=== PATIENT | male | born 1960 | race Caucasian/White ===

== ENCOUNTER 2018-06-17 00:33 | Observation (INO) | payer OTHER ==
[2018-06-17] MEDS ORDERED: ONDANSETRON 4 MG/2 ML VIAL ONE (00:56)
[2018-06-17] MEDS ORDERED: MORPHINE 4 MG/ML SYR ONE (00:56)
[2018-06-17] MEDS ORDERED: LEVALBUTEROL 1.25 MG/3 ML NEB ONE (00:56)
[2018-06-17 01:04] LABS: Absolute Lymphocytes (CBC) 3.8 K/uL (0.7-4.9); Absolute Monocytes 0.6 K/uL (0.1-1.3); Absolute Neutrophil 6.9 K/uL (1.8-8.0); Basophils % 1.4 % (0-1.3); Eosinophils % 2.9 % (0-4.4); Hematocrit 38.2 % (39.6-49.0); Lymphocytes % 31.7 % (15.3-44.8); MCH 28.4 pg (27.0-35.0); MPV 8.7 fL (7.6-11.3); Monocytes % 5.5 % (3.3-12.3); Protime INR 1.03; RBC Red Blood Cell Count 4.44 M/uL (4.33-5.43)
[2018-06-17] MEDS ORDERED: MEPERIDINE HCL 50 MG/ML AMP ONE ×2 (01:21→03:13)
[2018-06-17 02:02] LABS: ALT/SGPT 18 U/L (12-78); AST/SGOT 12 U/L (15-37); Albumin 3.6 g/dL (3.4-5.0); Alkaline Phosphatase 70 U/L (45-117); BUN Blood Urea Nitrogen 13 mg/dL (7-18); Bicarbonate 23 mmol/L (21-32); Bilirubin Direct < 0.1 mg/dL (0-0.2); Bilirubin Total 0.3 mg/dL (0.2-1.0); Glucose Level 101 mg/dL (74-106); Magnesium 1.7 mg/dL (1.8-2.4); NT PRO-BNP 1231 pg/mL (<125); Potassium 3.7 mmol/L (3.5-5.1); Protein, Total 6.5 g/dL (6.4-8.2); Sodium Level 144 mmol/L (136-145); Troponin (Emerg Dept Use Only) < 0.02 ng/mL (0.0-0.045)
[2018-06-17] MEDS ORDERED: KETOROLAC 30 MG/ML INJ IV ONE (03:12)
--- NOTE | 2018-06-17 03:13 | ER ---
Nurse's Notes [facility] Name: Alexander Bowman Age: 57 yrs Sex: Male : 1960 Arrival Date: 06/17/2018 Time: 00:39 Bed 3 Private MD: Diagnosis: Chest pain, unspecified Presentation: 06/17 00:40 Presenting complaint: Patient states: Chest pain for the past few days. Pain getting ao worst. Patient has being taking Nitro but it not relieving pain anymore. Patient has a history of cardiac stents in the past. Transition of care: patient was not received from another setting of care. Onset of symptoms is unknown. Risk Assessment: Do you want to hurt yourself or someone else? Patient reports no desire to harm self or others. Initial Sepsis Screen: Does the patient meet any 2 criteria? No. Patient's initial sepsis screen is negative. Does the patient have a suspected source of infection? No. Patient's initial sepsis screen is negative. Care prior to arrival: Medication(s) given: Nitroglycerin, 0.4 mg SL x 3. 00:40 Method Of Arrival: EMS: [facility] ao 00:40 Acuity: JACEY 3 ao Historical: - Allergies: 00:44 Aspirin; ao 00:44 Codeine; ao 00:44 Levofloxacin; ao 00:44 mycins; ao 00:44 PENICILLINS; ao 00:44 Sulfa (Sulfonamide Antibiotics); ao 00:44 Tylenol-Codeine #3; ao - Home Meds: 03:39 Advair Diskus 500-50 mcg/dose Inhl dsdv 1 puff 2 times per day [Active]; Aldactone 25 ao mg Oral tab 1 tab once daily [Active]; Dulera inhalation [Active]; fluticasone inhalation [Active]; Nitrostat 0.4 mg SL subl [Active]; omeprazole 40 mg Oral cpDR 1 cap once daily [Active]; pravastatin 40 mg Oral tab 1 tab once daily [Active]; Restoril 15 mg Oral cap 1 cap once daily [Active]; Robaxin 500 mg Oral tab [Active]; Soma 350 mg Oral tab 1 tab 3 times per day [Active]; Spiriva with HandiHaler 18 mcg inhalation CpDv [Active]; Viibryd 40 mg Oral tab [Active]; Xanax 2 mg Oral tab 3 times per day [Active]; lisinopril 10 mg Oral tab 1 tab once daily [Active]; oxycodone 10 mg Oral tab 1 tab every 6 hours [Active]; - PMHx: 00:44 Anxiety; COPD; Hypertension; Myocardial infarction; Pneumonia; Pneumothorax; ao - PSHx: 00:44 stents; ao - Immunization history:: Adult Immunizations unknown. - Social history:: Smoking status: Patient/guardian denies using tobacco, Patient/guardian denies using alcohol, street drugs. - Ebola Screening: : Patient negative for fever greater than or equal to 101.5 degrees Fahrenheit, and additional compatible Ebola Virus Disease symptoms Patient denies exposure to infectious person Patient denies travel to an Ebola-affected area in the 21 days before illness onset. - Family history:: not pertinent. - Hospitalizations: : No recent hospitalization is reported. Screenin:05 Abuse screen: Denies threats or abuse. Denies injuries from another. Nutritional ao screening: No deficits noted. Tuberculosis screening: No symptoms or risk factors identified. Fall Risk None identified. Assessment: 01:03 General: Appears in no apparent distress. uncomfortable, Behavior is appropriate for ao age, anxious. Pain: Complains of pain in chest. Neuro: Level of Consciousness is awake, alert, obeys commands, Oriented to person, place, time, situation, Appropriate for age Moves all extremities. Full function Speech is normal, Facial symmetry appears normal. Cardiovascular: Capillary refill < 3 seconds Patient's skin is warm and dry. Cardiovascular: Reports chest pain, nausea, shortness of breath, Denies vomiting. Respiratory: Airway is patent Respiratory effort is even, unlabored, Respiratory pattern is regular, symmetrical. GI: Abdomen is obese. : No signs and/or symptoms were reported regarding the genitourinary system. EENT: No signs and/or symptoms were reported regarding the EENT system. Derm: Skin is intact, Skin is pink, warm \T\ dry. normal, Skin temperature is warm. Musculoskeletal: Circulation, motion, and sensation intact. Range of motion: intact in all extremities. 01:47 Reassessment: Patient appears in no apparent distress at this time. Patient and/or ao family updated on plan of care and expected duration. Pain level reassessed. Patient is alert, oriented x 3, equal unlabored respirations, skin warm/dry/pink. Patient under no distress. New IV had started. 03:04 Reassessment: Patient appears in no apparent distress at this time. Patient and/or ao family updated on plan of care and expected duration. Pain level reassessed. Patient is alert, oriented x 3, equal unlabored respirations, skin warm/dry/pink. Waiting on dispo orders. Vital Signs: 00:42 BP 170 / 128; Pulse 97; Resp 18; Temp 98.4(O); Pulse Ox 99% on R/A; Weight 90.72 kg; ao Height 5 ft. 6 in. (167.64 cm); Pain 8/10; 01:47 BP 169 / 93; Pulse 77; Resp 17; Pulse Ox 96% ; ao 02:15 BP 122 / 82; Pulse 72; Resp 16; Pulse Ox 98% on R/A; Pain 0/10; ao 03:04 BP 136 / 88; Pulse 76; Resp 16; Pulse Ox 99% ; ao 00:42 Body Mass Index 32.28 (90.72 kg, 167.64 cm) ao ED Course: 00:39 Patient arrived in ED. rn 00:39 Aroldo Lui MD is Attending Physician. rn 00:39 Phillip Rosas RN is Primary Nurse. ao 00:42 Triage completed. ao 00:45 Arm band placed on right wrist. Patient placed in an exam room, on a stretcher, on ao clinical research monitor, on pulse oximetry. 00:45 Initial lab(s) drawn, by me, sent to lab. Inserted saline lock: 20 gauge in left cc forearm, using aseptic technique. Blood collected. 00:54 X-ray completed. Portable x-ray completed in exam room. Patient tolerated procedure kw well. 00:55 XRAY Chest (1 view) In Process Unspecified. EDMS 01:05 Patient has correct armband on for positive identification. monitor and storage bin tender on. Pulse ao ox on. NIBP on. 01:34 Inserted saline lock: 20 gauge in right forearm, using aseptic technique. Blood ao collected. 03:12 Ramy Otero MD is Hospitalizing Provider. rn 04:47 No provider procedures requiring assistance completed. Patient admitted, IV remains in ao place. Administered Medications: 00:57 Drug: Zofran 4 mg Route: IVP; Site: left forearm; ao 03:03 Follow up: Response: No adverse reaction ao 00:59 Drug: morphine 4 mg Route: IVP; Site: left forearm; ao 03:03 Follow up: Response: No adverse reaction ao 01:03 Drug: Xopenex 1.25 mg Route: Inhalation; ao 03:04 Follow up: Response: No adverse reaction ao 01:25 Drug: Demerol 50 mg Route: IVP; Site: right forearm; ao 03:03 Follow up: Response: No adverse reaction ao 03:10 Drug: Demerol 25 mg Route: IVP; Site: right antecubital; ao 04:46 Follow up: Response: No adverse reaction ao Outcome: 03:12 Decision to Hospitalize by Provider. rn 04:47 Admitted to Tele accompanied by nurse, room 405. ao 04:47 Condition: stable 04:47 Instructed on the need for admit. 04:48 Patient left the ED. ao Signatures: Dispatcher [employer] Aroldo De León MD MD rn Whitley, Kimberlee kw Christian, Chelsea cc Ortiz, Alex RN RN ao
--- NOTE | 2018-06-17 03:13 | EDPHYS ---
Physician Documentation [facility] Name: Alexander Bowman Age: 57 yrs Sex: Male : 1960 Arrival Date: 06/17/2018 Time: 00:39 Bed 3 Private MD: ED Physician Aroldo Lui HPI: 06/17 03:03 This 57 yrs old Male presents to ER via EMS with complaints of Chest Pain > rn 30 y/o. 03:03 The patient or guardian reports chest pain that is located primarily in the anterior rn chest wall, left. Onset: 2 day(s) ago. The pain does not radiate. Associated signs and symptoms: Pertinent positives: dizziness, lightheadedness, Pertinent negatives: abdominal pain, cough, diaphoresis. Severity of pain: At its worst the pain was moderate in the emergency department the pain is unchanged. The patient has not experienced similar symptoms in the past. Reports 2 days of intermittent chest pain, feels like defibrillator is shocking him, no fever, + COPD and smoker, + mild sob at baseline, pain pretty much constant for 2 days but gets sharp episodes of pain on top of it. + multiple PR and stents in past. . Historical: - Allergies: 00:44 Aspirin; ao 00:44 Codeine; ao 00:44 Levofloxacin; ao 00:44 mycins; ao 00:44 PENICILLINS; ao 00:44 Sulfa (Sulfonamide Antibiotics); ao 00:44 Tylenol-Codeine #3; ao - Home Meds: 03:39 Advair Diskus 500-50 mcg/dose Inhl dsdv 1 puff 2 times per day [Active]; Aldactone 25 ao mg Oral tab 1 tab once daily [Active]; Dulera inhalation [Active]; fluticasone inhalation [Active]; Nitrostat 0.4 mg SL subl [Active]; omeprazole 40 mg Oral cpDR 1 cap once daily [Active]; pravastatin 40 mg Oral tab 1 tab once daily [Active]; Restoril 15 mg Oral cap 1 cap once daily [Active]; Robaxin 500 mg Oral tab [Active]; Soma 350 mg Oral tab 1 tab 3 times per day [Active]; Spiriva with HandiHaler 18 mcg inhalation CpDv [Active]; Viibryd 40 mg Oral tab [Active]; Xanax 2 mg Oral tab 3 times per day [Active]; lisinopril 10 mg Oral tab 1 tab once daily [Active]; oxycodone 10 mg Oral tab 1 tab every 6 hours [Active]; - PMHx: 00:44 Anxiety; COPD; Hypertension; Myocardial infarction; Pneumonia; Pneumothorax; ao - PSHx: 00:44 stents; ao - Immunization history:: Adult Immunizations unknown. - Social history:: Smoking status: Patient/guardian denies using tobacco, Patient/guardian denies using alcohol, street drugs. - Ebola Screening: : Patient negative for fever greater than or equal to 101.5 degrees Fahrenheit, and additional compatible Ebola Virus Disease symptoms Patient denies exposure to infectious person Patient denies travel to an Ebola-affected area in the 21 days before illness onset. - Family history:: not pertinent. - Hospitalizations: : No recent hospitalization is reported. ROS: 03:03 Constitutional: Negative for fever, chills, and weight loss, Eyes: Negative for injury, rn pain, redness, and discharge, Neck: Negative for injury, pain, and swelling, Cardiovascular: + chest pain Respiratory: + sob and cough Abdomen/GI: Negative for abdominal pain, nausea, vomiting, diarrhea, and constipation, MS/Extremity: Negative for injury and deformity, Skin: Negative for injury, rash, and discoloration, Neuro: Negative for headache, weakness, numbness, tingling, and seizure. Exam: 03:03 Constitutional: This is a well developed, well nourished patient who is awake, alert, rn appears uncomfortable, gasping chest Head/Face: Normocephalic, atraumatic. Eyes: Pupils equal round and reactive to light, extra-ocular motions intact. Lids and lashes normal. Conjunctiva and sclera are non-icteric and not injected. Cornea within normal limits. Periorbital areas with no swelling, redness, or edema. Cardiovascular: tachcyardic, regular, no murmur Respiratory: + mild tachypnea with diminished breath sounds bilateral bases, no crackles Abdomen/GI: Soft, non-tender, with normal bowel sounds. No distension or tympany. No guarding or rebound. No evidence of tenderness throughout. Skin: Warm, dry with normal turgor. Normal color with no rashes, no lesions, and no evidence of cellulitis. MS/ Extremity: Pulses equal, no cyanosis. Neurovascular intact. Full, normal range of motion. Equal circumference. Neuro: Awake and alert, GCS 15, oriented to person, place, time, and situation. Cranial nerves II-XII grossly intact. Motor strength 5/5 in all extremities. Sensory grossly intact. Vital Signs: 00:42 BP 170 / 128; Pulse 97; Resp 18; Temp 98.4(O); Pulse Ox 99% on R/A; Weight 90.72 kg; ao Height 5 ft. 6 in. (167.64 cm); Pain 8/10; 01:47 BP 169 / 93; Pulse 77; Resp 17; Pulse Ox 96% ; ao 02:15 BP 122 / 82; Pulse 72; Resp 16; Pulse Ox 98% on R/A; Pain 0/10; ao 03:04 BP 136 / 88; Pulse 76; Resp 16; Pulse Ox 99% ; ao 00:42 Body Mass Index 32.28 (90.72 kg, 167.64 cm) ao MDM: 00:39 Patient medically screened. rn 03:03 Differential diagnosis: acute myocardial infarction, acute pericarditis, coronary rn artery disease chest wall pain, congestive heart failure costochondritis, esophagitis, gastritis, gastroesophageal reflux disease (GERD), pericarditis, pleurisy, pneumonia, pneumothorax, stable angina. Data reviewed: vital signs, nurses notes, lab test result(s), radiologic studies, plain films, and as a result, I will admit patient. Counseling: I had a detailed discussion with the patient and/or guardian regarding: the historical points, exam findings, and any diagnostic results supporting the discharge/admit diagnosis, lab results, radiology results, the need for further work-up and treatment in the hospital. Response to treatment: the patient's symptoms have mildly improved after treatment, and as a result, I will admit patient. Admission orders: after a detailed discussion of the patient's condition and case, the admit orders are written by me. 06/17 00:40 Order name: Basic Metabolic Panel; Complete Time: : rn 06/17 00:40 Order name: CBC with Diff; Complete Time: 01:56 rn 06/17 00:40 Order name: LFT's; Complete Time: : rn 06/17 00:40 Order name: Magnesium; Complete Time: : rn 06/17 00:40 Order name: NT PRO-BNP; Complete Time: 02:14 rn 06/17 00:40 Order name: PT-INR; Complete Time: 01:56 rn 06/17 00:40 Order name: Troponin (emerg Dept Use Only); Complete Time: 02:14 rn 06/17 00:40 Order name: XRAY Chest (1 view) rn 06/17 00:40 Order name: EKG; Complete Time: 00:41 rn 06/17 00:40 Order name: Cardiac monitoring; Complete Time: 00:51 rn 06/17 00:40 Order name: EKG - Nurse/Tech; Complete Time: 01:06 rn 06/17 00:40 Order name: IV Saline Lock; Complete Time: 00:51 rn 06/17 00:40 Order name: Labs collected and sent; Complete Time: 00:51 rn 06/17 00:40 Order name: O2 Per Protocol; Complete Time: 00:51 rn 06/17 00:40 Order name: O2 Sat Monitoring; Complete Time: 00:51 rn Administered Medications: 00:57 Drug: Zofran 4 mg Route: IVP; Site: left forearm; ao 03:03 Follow up: Response: No adverse reaction ao 00:59 Drug: morphine 4 mg Route: IVP; Site: left forearm; ao 03:03 Follow up: Response: No adverse reaction ao 01:03 Drug: Xopenex 1.25 mg Route: Inhalation; ao 03:04 Follow up: Response: No adverse reaction ao 01:25 Drug: Demerol 50 mg Route: IVP; Site: right forearm; ao 03:03 Follow up: Response: No adverse reaction ao 03:10 Drug: Demerol 25 mg Route: IVP; Site: right antecubital; ao 04:46 Follow up: Response: No adverse reaction ao Disposition: 06/17/18 03:12 Hospitalization ordered by Ramy Otero for Observation. Preliminary diagnosis is Chest pain, unspecified. - Bed requested for Telemetry/MedSurg (observation). - Status is Observation. ao - Condition is Stable. - Problem is new. - Symptoms have improved. UTI on Admission? No Signatures: Dispatcher [employer] Sarai Holliday RN RN kl Nieto, Roman, MD MD rn Ortiz, Alex, RN RN ao Corrections: (The following items were deleted from the chart) 04:23 03:12 Hospitalization Ordered by Ramy Otero MD for Observation. Preliminary kl diagnosis is Chest pain, unspecified. Bed requested for Telemetry/MedSurg (observation). Status is Observation. Condition is Stable. Problem is new. Symptoms have improved. UTI on Admission? No. rn 04:48 04:23 06/17/2018 03:12 Hospitalization Ordered by Ramy Otero MD for Observation. ao Preliminary diagnosis is Chest pain, unspecified. Bed requested for Telemetry/MedSurg (observation). Status is Observation. Condition is Stable. Problem is new. Symptoms have improved. UTI on Admission? No. kl
--- NOTE | 2018-06-17 03:24 | P.HP ---
Certification for Inpatient Patient admitted to: Observation With expected LOS: <2 Midnights Practitioner: I am a practitioner with admitting privileges, knowledge of patient current condition, hospital course, and medical plan of care. Services: Services provided to patient in accordance with Admission requirements found in Title 42 Section 412.3 of the Code of Federal Regulations Patient History Date of Service: 06/17/18 Reason for admission: Chest pain History of Present Illness: Mr Saravia is a 57-year-old male with history of pulmonary artery disease status post several stent placement in the past, ICD, COPD, chronic pain syndrome, who came to ER complaining of chest pain. His pain started a couple of days ago. He actually feels that he is ICD is going off. The pain is described as an electric shock in the area where the device is placed. He denied any shortness of breath, nausea, diaphoresis, or dizziness associated with the pain. The pain lasts for a few seconds, however has recurrent episodes several times a day since it started. In ER EKG shows sinus rate without ST-T abnormalities, troponin I is negative. Allergies acetaminophen [From Tylenol] Allergy (Verified 03/27/16 04:37) Rash codeine Allergy (Verified 03/27/16 04:37) Unknown levofloxacin [From Levaquin] Allergy (Verified 03/27/16 04:37) Unknown Penicillins Allergy (Verified 03/27/16 04:37) Unknown Sulfa (Sulfonamide Antibiotics) Allergy (Verified 03/27/16 04:37) Unknown vancomycin Allergy (Verified 05/27/16 20:08) Itching/Hives/Rash aspirin Adverse Reaction (Verified 03/27/16 04:37) Anaphylaxis Home medications list reviewed: Yes Home Medications: Asenapine Maleate [Saphris] 5 mg SL BID 03/27/16 Fluticasone [Flovent Hfa 110*] 110 mcg IH BID PRN 03/27/16 Fluticasone/Salmeterol [Advair 500/50 Diskus*] 1 puff IH BID 03/27/16 Isosorbide Mononitrate [Ismo] 40 mg PO DAILY 03/27/16 Methocarbamol [Robaxin*] 500 mg PO TID 03/27/16 Mometasone/Formoterol [Dulera 100 Mcg/5 Mcg Inhaler] 13 gm IH BID* PRN 03/27/16 Nitroglycerin [Nitrostat*] 0.4 mg SL PRN PRN 03/27/16 Omeprazole [Prilosec] 40 mg PO BID 03/27/16 Pravastatin [Pravachol*] 40 mg PO DAILY 03/27/16 Temazepam [Restoril*] 15 mg PO BEDTIME 03/27/16 Tiotropium [place] [Spiriva] 1 spray IH DAILY 03/27/16 Trazodone [Desyrel*] 50 mg PO BEDTIME 03/27/16 Vilazodone HCl [Viibryd] 1 each PO BID 03/27/16 Zolpidem Tartrate [Ambien*] 10 mg PO BEDTIME 03/27/16 ALPRAZolam [Xanax*] 2 mg PO TID #90 tab 03/29/16 Carvedilol [Coreg*] 12.5 mg PO BID 6AM 6PM #60 tab 03/29/16 Hydrocodone/Ibuprofen [Vicoprofen 200-7.5 mg Tab] 1 each PO Q4H PRN #90 tablet 03/29/16 Spironolactone [Aldactone*] 25 mg PO DAILY #30 tab 03/29/16 Clonazepam 1 mg PO TID PRN 05/27/16 Hydromorphone HCl [Dilaudid] 4 mg PO Q8HR PRN 05/27/16 Linezolid [Zyvox] 600 mg PO BID 05/27/16 Meropenem 1 gm IV TID 05/27/16 Alprazolam [Xanax] 2 mg PO TID PRN #30 tablet 05/28/16 Lidocaine 5% Patch [Lidoderm 5% Patch*] 1 patch TD DAILY #15 patch 05/28/16 - Past Medical/Surgical History Diabetic: No -: OR X 10 -: insomnia -: RLS -: anxiety -: depression -: COPD -: Detoriated disc in back -: Chronic pain medication -: Pacemaker/defib -: stents X9 -: 18 in of colon removed -: L knee sx -: L elbow sx -: 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 moist/pink, EOMI, Sclerae nonicteric Neck: Supple, 2+ carotid pulse no bruit, No LAD, Without JVD or thyroid abnormality Respiratory: Clear to auscultation bilaterally, Normal air movement Cardiovascular: Regular rate/rhythm, Normal S1 S2 Gastrointestinal: Normal bowel sounds, No tenderness Musculoskeletal: No tenderness Integumentary: No rashes Neurological: Normal speech, Normal strength at 5/5 x4 extr, Normal tone, Normal affect Lymphatics: No axilla or inguinal lymphadenopathy - Studies Laboratory Data (last 24 hrs) 06/17/18 01:23: Sodium 144, Potassium 3.7, BUN 13, Creatinine 1.40 H, Glucose 101, Magnesium 1.7 L, Total Bilirubin 0.3, AST 12 L, ALT 18, Alkaline Phosphatase 70 06/17/18 00:45: PT 12.1, INR 1.03 06/17/18 00:45: WBC 11.9 H, Hgb 12.6 L, Hct 38.2 L, Plt Count 243 Assessment and Plan - Problems (Diagnosis) (1) History of implantable cardioverter-defibrillator (ICD) placement Current Visit: Yes Status: Acute (2) Chest pain Onset Date: 03/28/16 Current Visit: No Status: Acute Qualifiers: Chest pain type: other chest pain Qualified Code(s): R07.89 - Other chest pain; R07.8 - Other chest pain (3) Chronic obstructive pulmonary disease (COPD) Onset Date: 03/28/16 Current Visit: No Status: Acute Qualifiers: COPD type: COPD with acute lower respiratory infection Qualified Code(s): J44.0 - Chronic obstructive pulmonary disease with acute lower respiratory infection (4) History of coronary artery disease Onset Date: 03/28/16 Current Visit: No Status: Acute - Plan The patient will be admitted to the hospital due to chest pain. Awaiting his current illness atypical and possible related to malfunction of his ICD. Initial troponin I is negative. EKG shows no ST-T abnormalities. Will order serial cardiac enzyme and scrum master, consult Cardiology team for evaluation and recommendation. He may need an ICD interrogation. - Advance Directives Does patient have a Living Will: No Does patient have a Durable POA for Healthcare: No - Code Status/Comfort Care Code Status Assessed: Yes Code Status: Full Code
[2018-06-17] MEDS ORDERED: KETOROLAC 30 MG/ML INJ ONE (04:48)
[2018-06-17 05:07] VITALS: BMI 27.3
[2018-06-17] MEDS ORDERED: TRAMADOL HCL 50 MG TAB PO PRN (05:19)
[2018-06-17] MEDS ORDERED: NITROGLYCERIN 0.4 MG/TAB SL PRN (05:19)
[2018-06-17 05:48] VITALS: O2SAT 93
[2018-06-17] MEDS ORDERED: CARVEDILOL 12.5 MG TAB PO SCH (06:00)
[2018-06-17 06:15] LABS: HDL Cholesterol 29 mg/dL (40-60); LDL Cholesterol, Calculated 57 (<130); Troponin I < 0.02 ng/mL (0.0-0.045)
[2018-06-17] MEDS ORDERED: HYDROCODONE/APAP 7.5/325 MG TAB PO ONE (06:37)
--- NOTE | 2018-06-17 08:06 | EKG ---
Test Date: 2018-06-17 Test Time: 01:04:44 Porcelain Enamel Repairer: RODOLFO MEASUREMENT RESULTS: Intervals: Rate: 78 [place]: 172 QRSD: 96 QT: 372 QTc: 424 [place]: P: 38 [place]: 172 QRS: 1 T: -21 INTERPRETIVE STATEMENTS: Normal sinus rhythm Inferior infarct, age undetermined Abnormal ECG Compared to ECG 10/03/2016 17:37:37 Atrial-paced complex(es) or rhythm no longer present Myocardial infarct finding still present Electronically Signed On 06-17-18 08:05:39 CDT by Ezekiel Gonzalez
--- NOTE | 2018-06-17 08:15 | RAD REPORT ---
EXAM DESCRIPTION: RAD - Chest Single View - 06/17/2018 1:00 am CLINICAL HISTORY: Chest pain COMPARISON: September 2016 TECHNIQUE: AP portable chest image was obtained 0043 hours . FINDINGS: Lung parenchymal scarring changes are present. Interstitial markings are stable. Defibrill ator is in place. No acute lung parenchymal process. Heart and vasculature are normal. No measurable pleural effusion and no pneumothorax. No gross bony abnormality seen. No acute aortic findings suspec thanh. IMPRESSION: No acute cardiopulmonary process. No significant change from comparison.
[2018-06-17] MEDS ORDERED: ENOXAPARIN 40 MG/0.4 ML SQ SCH (09:00)
[2018-06-17] MEDS ORDERED: ASPIRIN EC 81 MG TAB PO SCH (09:00)
[2018-06-17 09:06] VITALS: BP 169/93; TEMP 97.3
[2018-06-17] MEDS ORDERED: PNEUMOCOCCAL VACCINE 0.5 ML IMVAC ONE (10:00)
--- NOTE | 2018-06-17 12:03 | CON ---
Additional Attending Physician: Dr. Tipton. Chief Complaint: Defibrillator feels funny. History Of Present Illness: Mr. Bowman had a similar hospitalization 2 years ago. He had a defibril lator placed in 2010 and has not been interrogated since 2015. When we interrogated it, then it had not given any shocks or anything. He was frightened that his defibrillator was not functioning. He has a history of cardiomyopathy from CAD. He has had a previous AR. He has a total of 9 intracorona ry stents in his heart, although none since 2010. He quit smoking in 2014. He does not have diabete s. Outpatient medications have been nitroglycerin, Spiriva, Advair, Robaxin, temazepam, Dulera, flut icasone, alprazolam, enalapril, dexlansoprazole or Dexilant and carisoprodol. He reports drug intolerance to sulfa antibiotics, acetaminophen, codeine, levofloxacin, penicillin. He is very upset that somebody want to give him a medicine that had a sulfur molecule in it. He was concerned that the hospital staff was trying to kill him and she used those words. Apparently, he al so takes hydrocodone as an outpatient, but that is not listed in his outpatient medication. He said he was allergic to aspirin to me although that is not list of things he is allergic to. An echocardi ogram is pending at this time. All of his cardiac enzymes are normal. The rest of his laboratory ex am is rather unremarkable. Creatinine is 1.4, blood sugar 101. His total cholesterol is 123, and I wonder if he does not actually take a cholesterol medicine which is not listed. Physical Examination: Vital Signs: 6 feet tall, 202 pounds. HEENT: Normal. Lungs: Clear. Heart: Within normal limits. Abdomen: Soft. Extremities: Palpable distal pulses. His EKG shows an atrial paced rhythm. I think we need to do a defibrillator interrogation due the ec hocardiogram. If those things look normal, he could be discharged for outpatient care. He does need to do a better job of following up with his defibrillator. BARON/ELI Voice ID: [id number] Report ID: [id number]
--- OUTSIDE RECORDS SUMMARY | 2018-06-17 12:21 | XMS REPORT | Clinical Summary ---
:1960 [facility] Address [address] [place] [place] [address] Phone Care Team Providers Name Role Phone Unavailable Primary Care Provider Unavailable Allergies Active Allergy Reactions Severity Noted Date Comments Acetaminophen High 04/29/2016 Pt states his throat swells up. Salicylates 04/25/2016 Codeine 04/25/2016 Levofloxacin 04/25/2016 Penicillins 04/25/2016 Sulfa (Sulfonamide 04/25/2016 Antibiotics) Current Medications Prescription Sig. Disp. Refills Start Date End Date Status fluticasone-salmeterol Inhale 1 puff by mouth Active (ADVAIR) 500-50 via inhaler 2 (two) mcg/dose diskus times daily. inhaler fluticasone (FLOVENT Inhale 1 puff by mouth Active HFA) 110 mcg/actuation via inhaler 2 (two) inhaler times daily. naproxen (NAPROSYN) Take 500 mg by mouth 2 Active 500 MG tablet (two) times daily with breakfast and dinner. clonazePAM (KLONOPIN) Take 1 mg by mouth 2 Active 1 MG tablet (two) times daily as needed for Anxiety. nitroglycerin Place 0.4 mg under the Active (NITROSTAT) 0.4 MG SL tongue every 5 (five) tablet minutes as needed for Chest pain Put 1 pill under tongue every 5min as needed for chest pain.No more than 3 doses in 15min.Call 911 if pain is unrelieved 5min after 1st dose . pravastatin Take 40 mg by mouth Active (PRAVACHOL) 40 MG daily. tablet tiotropium (SPIRIVA) Inhale 18 mcg by mouth Active 18 mcg inhalation via inhaler daily. capsule traZODone (DESYREL) 50 Take 50 mg by mouth Active MG tablet nightly. temazepam (RESTORIL) Take 15 mg by mouth Active 15 mg capsule every night as needed for Sleep. meropenem (MERREM) MBP Inject 1 g 0 05/08/2016 Active 1 gm in 100 mL NS intravenously every 8 (eight) hours. lidocaine (XYLOCAINE) Apply topically as 50 g 0 05/08/2016 Active 5 % ointment needed. Active Problems Problem Noted Date Pneumonia due to infectious organism 04/28/2016 Chronic obstructive pulmonary disease with acute lower respiratory 04/28/2016 infection (HCC) Pneumothorax 04/25/2016 Family History Medical History Relation Name Comments Cancer Brother Heart disease Father Heart disease Mother Relation Name Status Comments Brother Father Mother Social History Tobacco Use Types Packs/Day Years Used Date Former Smoker 2 40 Quit: 03/27/2016 Alcohol Use Drinks/Week oz/Week Comments No Sex Assigned at Date Recorded Not on file Last Filed Vital Signs Not on file Plan of Treatment Not on file Results Not on fileafter 06/16/2017
--- NOTE | 2018-06-17 12:24 | ECHO ---
HEIGHT: 6 ft 0 in WEIGHT: 202 lb 0 oz DATE OF STUDY: 06/17/[address]: 2-DIMENSIONAL: YES M.MODE: YES DOPPLER: YES COLOR FLOW: YES TDS: NO PORTABLE: NO DEFINITY: NO BUBBLE STUDY: NO DIAGNOSIS: CHEST PAIN CARDIAC HISTORY: CATHERIZATION: NO SURGERY: YES PROSTHETIC VALVE: NO PACEMAKER: YES MEASUREMENTS (cm) DIASTOLIC (NORMALS) SYSTOLIC (NORMALS) IVSd 1.1 (0.6-1.2) LA Diam 4.3 (1.9-4.0) LVEF 50-55% LVIDd 4.8 (3.5-5.7) LVIDs 3.8 (2.0-3.5) %FS 22% LVPWd 1.1 (0.6-1.2) Ao Diam 3.4 (2.0-3.7) 2 DIMENSIONAL ASSESSMENT: RIGHT ATRIUM: NORMAL LEFT ATRIUM: DILATED RIGHT VENTRICLE: PACEMAKER CATHETER LEFT VENTRICLE: NORMAL TRICUSPID VALVE: NORMAL MITRAL VALVE: NORMAL PULMONIC VALVE: NORMAL AORTIC VALVE: NORMAL PERICARDIAL EFFUSION: NONE AORTIC ROOT: NORMAL LEFT VENTRICULAR WALL MOTION: INFERIOR POSTERIOR HYPOKINESIS DOPPLER/COLOR FLOW: PHYSIOLOGICAL TRICUSPID REGURGITATION. NORMAL RIGHT VENTRICULAR SYSTOLIC PRESSURE. COMMENTS: NORMAL LEFT VENTRICULAR EJECTION FRACTION WITHOUT WALL MOTION ABNORMALITIES. DILATED LEFT ATRIUM. PACEMAKER IN RIGHT VENTRICULAR. 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
--- NOTE | 2018-06-17 13:39 | PN ---
I saw him earlier today. Since that time the only thing that has changed is we have done a defibrill ator interrogation. It is a [employer] device, it is functioning normally. He has had no recent arrh ythmia or shocks. Last time he had an episode of 5-beat nonsustained VT, it was in February of this year , so 3 months ago. I believe he is ready to be discharged. BARON/ELI Voice ID: [id number] Report ID: [id number]
[2018-06-17] MEDS ORDERED: ATORVASTATIN 10 MG TAB PO SCH (21:00)
== END 2018-06-17 10:29 | disposition home or self-care (01) ==
LOC: ER 00:33 → ERHOLD 03:12 → 4TH 04:30
PROVIDERS: ADMIT Internal Medicine; ATTEND Family Medicine
DX: R07.9 Chest pain, unspecified (principal); I25.10 Atherosclerotic heart disease of native coronary artery without angina pectoris; I25.2 Old myocardial infarction; J44.0 Chronic obstructive pulmonary disease with (acute) lower respiratory infection; Z95.0 Presence of cardiac pacemaker; Z88.2 Allergy status to sulfonamides; Z88.1 Allergy status to other antibiotic agents; Z88.6 Allergy status to analgesic agent; Z88.0 Allergy status to penicillin
CPT/HCPCS: 36415; 71045; 80048; 80061; 80076; 83735; 83880; 84484 ×2; 85025; 85610; 93005; 93280; 93306; 96374; 96375; 99285; G0378 ×2; J2175 ×2; J2405

== ENCOUNTER 2021-08-24 08:30 | Emergency (ER) | payer OTHER ==
--- OUTSIDE RECORDS SUMMARY | 2021-08-24 08:38 | XMS REPORT | Continuity of Care Document ---
:1960 Author Organization [facility] t Address [address] [place] [address] Care Team Providers Name Role Phone Savannah Weathers Primary Care Physician Konrad MACARIO Attending Clinician KONRAD Attending Clinician Unavailable Doctor Unassigned, Name Attending Clinician Unavailable Bj MACARIO Attending Clinician James MACARIO Attending Clinician Jason Wang MD Attending Clinician [phone] BJ Attending Clinician Unavailable SOLOMON Attending Clinician Unavailable Solomon MACARIO Attending Clinician STEPHANIE Attending Clinician Unavailable Pc, Vascular Room 1 - Attending Clinician Unavailable Pc, Echo Room 1 - Attending Clinician Unavailable KONRAD Admitting Clinician Unavailable Jason Wang MD Admitting Clinician [phone] Payers Payer Name Policy Type Policy Number Effective Date Expiration Date S [facility] [place], [place] MEDICARE PART A \\T\\ [id number] 2014 B 00:00:00 [facility] [id number] 2014 00:00:00 MEDICA[place] OF [place] [id number] 2014 00:00:00 Problems Condition Condition Condition Status Onset Resolution Last Treating Co mments Source Name Details Category Date Date Treatment Clinician Date Coronary Coronary Disease Active Unive rs artery artery 9-09 ity of disease disease 00:00: [place] involving involving 00 Medi julieta jena jena Branch coronary coronary artery of artery of jena jena heart heart without without angina angina pectoris pectoris Allergies, Adverse Reactions, Alerts Allergy Allergy Status Severity Reaction(s) Onset Inactive Treating Comm ents Source Name Type Date Date Clinician Aspirin Propensi Active Anaphylaxis 2018-09 Un mateusz ty to 0-16 ity of adverse 00:00: [place] reaction 00 Medical s Branch Codeine Propensi Active Itching 2018-09 Univer s ty to 0-16 ity of adverse 00:00: [place] reaction 00 Medical s Branch Levoflox Propensi Active Shortness of 2018-09 Univers acin ty to Breath 0-16 ity of adverse 00:00: [place] reaction 00 Medical s Branch Penicill Propensi Active Shortness of 2018-09 Univers ins ty to Breath 0-16 ity of adverse 00:00: [place] reaction 00 Medical s Branch Sulfa Propensi Active Swelling 2018-09 Univer s (Sulfona ty to 0-16 ity of mide adverse 00:00: [place] Antibiot reaction 00 Medica l ics) s Branch Acetamin Propensi Active Anaphylaxis 2018-09 U nivers ophen ty to 0-16 ity of adverse 00:00: [place] reaction 00 Medical s Branch ASPIRIN DRUG Active Anaphylaxis 2018-09 Univ ers INGREDI 0-16 ity of 00:00: [place] 00 Medical Branch CODEINE DRUG Active ITCHING 2018-09 Univers INGREDI 0-16 ity of 00:00: [place] 00 Medical Branch LEVOFLOX DRUG Active SOB 2018-09 Univers ACIN INGREDI 0-16 ity of 00:00: [place] 00 Medical Branch PENICILL Drug Active SOB 2018-09 Univers INS Class 0-16 ity of 00:00: [place] 00 Medical Branch SULFA Drug Active Swelling 2018-09 Univers (SULFONA Class 0-16 ity of MIDE 00:00: [place] ANTIBIOT 00 Medical ICS) Branch ACETAMIN DRUG Active Anaphylaxis 2018-09 Uni vers OPHEN INGREDI 0-16 ity of 00:00: [place] 00 Medical Branch Penicill DA Active U 2017-09 [facility] 00:00: [place] [id number] [facility] [place] Sulfa DA Active U 2017-09 [facility] (Sulfona 2 [facility] mide 00:00: [place] Antibiot 00 Medical ics) [place] codeine DA Active U 2017-09 [facility] 00:[facility]: [address] aspirin DA Active U 2017-09 [facility] 00:[facility]: [address] acetamin DA Active U 2017-09 [facility] ophen 00:00: [address] levoflox DA Active U 2017-09 [facility] acin 00:00: [address] Social History Social Habit Start Date Stop Date Quantity Comments Source Exposure to Not sure University SARS-CoV-2 [facility] (event) [place] History of Snuff User University of tobacco use [facility] Alcohol intake 2021-05-19 2021-05-19 Ex-drinker [facility] 00:00:00 00:00:00 (finding) [facility] Tobacco use and 2019-07-09 2019-07-09 Current user Univers ity of exposure 00:00:00 00:00:00 [facility] At [birth year] [facility] Smoking Status Start Date Stop Date Source Former smoker 2020-07-19 00:00:00 2020-07-19 00:00:00 [facility] Medications Ordered Filled Start Stop Current Ordering Indication Dosage Frequency Signature Comments Components Source Medication Medication Date Date Medication? Clinician (SIG) Name Name morpHINE 2020- No 2mg 2 mg, Slow Un mateusz injection 2 03-14 IV Push, ity of mg 21:45: 20:45 ONCE, 1 [place] 00 :00 dose, [facility] Medical 03/14/21 at Branch 1645, STAT morpHINE 2020- No 6mg 6 mg, Slow Un mateusz injection 6 03-14 IV Push, ity of mg 20:45: 19:45 ONCE, 1 [place] 00 :00 dose, [facility] Medical 03/14/21 at Branch 1545, STAT ondansetron 2020- No 4mg 4 mg, Slow Univers (ZOFRAN 03-14 IV Push, ity of (PF)) 19:45: 18:41 ONCE, 1 [place] injection 4 00 :00 dose, Mon Med ical mg 03/14/21 at Branch 1445, KEMAL FENTanyl PF 2020- No 100ug 100 mcg, Univers (SUBLIMAZE 03-14 Slow IV ity o f (PF)) 19:45: 18:41 Push, [place] injection 00 :00 ONCE, 1 Medical 100 mcg dose, Mon Branch 03/14/21 at 1445, Routine chlordiazeP 2019-09 Yes 10mg Take 10 mg Univers OXIDE 10 mg 0-26 by mouth 3 it y of capsule 15:56: (three) [place] 14 times Medical daily. Branch isosorbide 2019-09 Yes 30mg Take 30 mg U nivers mononitrate 0-26 by mouth it[place] of 30 mg 24 hr 15:56: [place]. [place] 14 [place] methocarbam 2019-09 Yes 500mg Take 500 U nivers ol 0-26 mg by ity of (ROBAXIN) 15:56: mouth 3 [place] 500 mg 14 (three) Medical tablet times Branch daily. Dexlansopra 2019-09 Yes Take by Un mate[place] zole 0-26 mouth 3 ity of (DEXILANT) 15:56: (three) [place] 60 mg 14 times Medical capsule daily. Branch hydrocodone 2019-09 Yes Take by Un mateusz /acetaminop 0-26 mouth 4 ity o f hen 15:56: (four) [place] (VICODIN ES 14 times Medical ORAL) daily. Branch fluticasone 2019-09 Yes Use in Uni vers propionate 0-26 each ity of 50 15:56: nostril [place] mcg/actuati 14 daily. Medica l on nasal Branch spray Fluticasone 2019-09 Yes 1{puff} Inhale 1 Univers -Salmeterol 0-26 Puff 3 ity of (ADVAIR 15:56: (three) [place] DISKUS) 14 times Medical 500-50 daily. Branch mcg/dose inhalation disk proMETHazin 2019-09 Yes 25mg Take 25 mg Univers e 25 mg 0-26 by mouth ity of tablet 15:56: every 4 [place] 14 (four) Medical hours as Branch needed. isosorbide 2019-09 Yes 30mg Take 30 mg U nivers mononitrate 0-26 by mouth ity of 30 mg 24 hr 15:56: [place]. [place] tablet 14 [place] methocarbam 2019-09 Yes 500mg Take 500 U nivers ol 0-26 mg by ity of (ROBAXIN) 15:56: mouth 3 [place] 500 mg 14 (three) Medical tablet times Branch daily. Dexlansopra 2020- Yes Take by Un [place] zole 0-26 mouth 3 ity of (DEXILANT) 15:56: (three) [place] 60 mg 14 times Medical capsule daily. Branch hydrocodone 2019-09 Yes Take by Un mateusz /acetaminop 0-26 mouth 4 ity o f hen 15:56: (four) [place] (VICODIN ES 14 times Medical ORAL) daily. Branch fluticasone 2019-09 Yes Use in Uni vers propionate 0-26 each ity of 50 15:56: nostril [place] mcg/actuati 14 daily. Medica l on nasal Branch spray Fluticasone 2019-09 Yes 1{puff} Inhale 1 Univers -Salmeterol 0-26 Puff 3 ity of (ADVAIR 15:56: (three) [place] DISKUS) 14 times Medical 500-50 daily. Branch mcg/dose inhalation disk proMETHazin 2019-09 Yes 25mg Take 25 mg Univers e 25 mg 0-26 by mouth ity of tablet 15:56: every 4 [place] 14 (four) Medical hours as Branch needed. chlordiazeP 2019-09 Yes 10mg Take 10 mg Univers OXIDE 10 mg 0-26 by mouth 3 it y of capsule 15:56: (three) [place] 14 times Medical daily. Branch isosorbide 2019-09 Yes 30mg Take 30 mg U nivers mononitrate 0-26 by mouth ity of 30 mg 24 hr 15:56: [place]. [place] tablet 14 [place] methocarbam 2019-09 Yes 500mg Take 500 U nivers ol 0-26 mg by ity of (ROBAXIN) 15:56: mouth 3 [place] 500 mg 14 (three) Medical tablet times Branch daily. Dexlansopra 2020- Yes Take by Un mate[place] zole 0-26 mouth 3 ity of (DEXILANT) 15:56: (three) [place] 60 mg 14 times Medical capsule daily. Branch hydrocodone 2019- Yes Take by Un mateusz /acetaminop 0-26 mouth 4 ity o f hen 15:56: (four) [place] (VICODIN ES 14 times Medical ORAL) daily. Branch fluticasone 2019- Yes Use in Uni vers propionate 0-26 each ity of 50 15:56: nostril [place] mcg/actuati 14 daily. Medica l on nasal Branch spray Fluticasone 2020- Yes 1{puff} Inhale 1 Univers -Salmeterol 0-26 Puff 3 ity of (ADVAIR 15:56: (three) [place] DISKUS) 14 times Medical 500-50 daily. Branch mcg/dose inhalation disk proMETHazin 2019-09 Yes 25mg Take 25 mg Univers e 25 mg 0-26 by mouth ity of tablet 15:56: every 4 [place] 14 (four) Medical hours as Branch needed. chlordiazeP 2019-09 Yes 10mg Take 10 mg Univers OXIDE 10 mg 0-26 by mouth 3 it y of capsule 15:56: (three) [place] 14 times Medical daily. Branch isosorbide 2019-09 Yes 30mg Take 30 mg U nivers mononitrate 0-26 by mouth ity of 30 mg 24 hr 15:56: daily. [place] tablet 14 [place] methocarbam 2019-09 Yes 500mg Take 500 U nivers ol 0-26 mg by ity of (ROBAXIN) 15:56: mouth 3 [place] 500 mg 14 (three) Medical tablet times Branch daily. Dexlansopra 2019-09 Yes Take by Un mateusz zole 0-26 mouth 3 ity of (DEXILANT) 15:56: (three) [place] 60 mg 14 times Medical capsule daily. Branch hydrocodone 2019-09 Yes Take by Un mateusz /acetaminop 0-26 mouth 4 ity o f hen 15:56: (four) [place] (VICODIN ES 14 times Medical ORAL) daily. Branch fluticasone 2019-09 Yes Use in Uni vers propionate 0-26 each ity of 50 15:56: nostril [place] mcg/actuati 14 daily. Medica l on nasal Branch spray Fluticasone 2020- Yes 1{puff} Inhale 1 Univers -Salmeterol 0-26 Puff 3 ity of (ADVAIR 15:56: (three) [place] DISKUS) 14 times Medical 500-50 daily. Branch mcg/dose inhalation disk proMETHazin 2019- Yes 25mg Take 25 mg Univers e 25 mg 0-26 by mouth ity of tablet 15:56: every 4 [place] 14 (four) Medical hours as Branch needed. chlordiazeP 2019- Yes 10mg Take 10 mg Univers OXIDE 10 mg 0-26 by mouth 3 it y of capsule 15:56: (three) [place] 14 times Medical daily. Branch isosorbide 2019-09 Yes 30mg Take 30 mg U nivers mononitrate 0-26 by mouth ity of 30 mg 24 hr 15:56: daily. [place] tablet 14 [place] methocarbam 2019-09 Yes 500mg Take 500 U nivers ol 0-26 mg by ity of (ROBAXIN) 15:56: mouth 3 [place] 500 mg 14 (three) Medical tablet times Branch daily. Dexlansopra 2019- Yes Take by Un mateusz zole 0-26 mouth 3 ity of (DEXILANT) 15:56: (three) [place] 60 mg 14 times Medical capsule daily. Branch hydrocodone 2019-09 Yes Take by Un mateusz /acetaminop 0-26 mouth 4 ity o f hen 15:56: (four) [place] (VICODIN ES 14 times Medical ORAL) daily. Branch fluticasone 2019-09 Yes Use in Uni vers propionate 0-26 each ity of 50 15:56: nostril [place] mcg/actuati 14 daily. Medica l on nasal Branch spray Fluticasone 2019-09 Yes 1{puff} Inhale 1 Univers -Salmeterol 0-26 Puff 3 ity of (ADVAIR 15:56: (three) [place] DISKUS) 14 times Medical 500-50 daily. Branch mcg/dose inhalation disk proMETHazin 2019-09 Yes 25mg Take 25 mg Univers e 25 mg 0-26 by mouth ity of tablet 15:56: every 4 [place] 14 (four) Medical hours as Branch needed. chlordiazeP 2019-09 Yes 10mg Take 10 mg Univers OXIDE 10 mg 0-26 by mouth 3 it y of capsule 15:56: (three) [place] 14 times Medical daily. Branch isosorbide 2019-09 Yes 30mg Take 30 mg U nivers mononitrate 0-26 by mouth ity of 30 mg 24 hr 15:56: daily. [place] tablet 14 [place] methocarbam 2019-09 Yes 500mg Take 500 U nivers ol 0-26 mg by ity of (ROBAXIN) 15:56: mouth 3 [place] 500 mg 14 (three) Medical tablet times Branch daily. Dexlansopra 2019- Yes Take by Un mateusz zole 0-26 mouth 3 ity of (DEXILANT) 15:56: (three) [place] 60 mg 14 times Medical capsule daily. Branch hydrocodone 2019-09 Yes Take by Un mateusz /acetaminop 0-26 mouth 4 ity o f hen 15:56: (four) [place] (VICODIN ES 14 times Medical ORAL) daily. Branch fluticasone 2019-09 Yes Use in Uni vers propionate 0-26 each ity of 50 15:56: nostril [place] mcg/actuati 14 daily. Medica l on nasal Branch spray Fluticasone 2019-09 Yes 1{puff} Inhale 1 Univers -Salmeterol 0-26 Puff 3 ity of (ADVAIR 15:56: (three) [place] DISKUS) 14 times Medical 500-50 daily. Branch mcg/dose inhalation disk proMETHazin 2019-09 Yes 25mg Take 25 mg Univers e 25 mg 0-26 by mouth ity of tablet 15:56: every 4 [place] 14 (four) Medical hours as Branch needed. chlordiazeP 2019-09 Yes 10mg Take 10 mg Univers OXIDE 10 mg 0-26 by mouth 3 it y of capsule 15:56: (three) [place] 14 times Medical daily. Branch isosorbide 2019-09 Yes 30mg Take 30 mg U nivers mononitrate 0-26 by mouth ity of 30 mg 24 hr 15:56: daily. [place] tablet 14 [place] methocarbam 2019-09 Yes 500mg Take 500 U nivers ol 0-26 mg by ity of (ROBAXIN) 15:56: mouth 3 [place] 500 mg 14 (three) Medical tablet times Branch daily. Dexlansopra 2019-09 Yes Take by Un mateusz zole 0-26 mouth 3 ity of (DEXILANT) 15:56: (three) [place] 60 mg 14 times Medical capsule daily. Branch hydrocodone 2019-09 Yes Take by Un mateusz /acetaminop 0-26 mouth 4 ity o f hen 15:56: (four) [place] (VICODIN ES 14 times Medical ORAL) daily. Branch fluticasone 2019-09 Yes Use in Uni vers propionate 0-26 each ity of 50 15:56: nostril [place] mcg/actuati 14 daily. Medica l on nasal Branch spray Fluticasone 2019- Yes 1{puff} Inhale 1 Univers -Salmeterol 0-26 Puff 3 ity of (ADVAIR 15:56: (three) [place] DISKUS) 14 times Medical 500-50 daily. Branch mcg/dose inhalation disk proMETHazin 2019-09 Yes 25mg Take 25 mg Univers e 25 mg 0-26 by mouth ity of tablet 15:56: every 4 [place] 14 (four) Medical hours as Branch needed. chlordiazeP 2019- Yes 10mg Take 10 mg Univers OXIDE 10 mg 0-26 by mouth 3 it y of capsule 15:56: (three) [place] 14 times Medical daily. Branch isosorbide 2019-09 Yes 30mg Take 30 mg U nivers mononitrate 0-26 by mouth ity of 30 mg 24 hr 15:56: daily. [place] tablet 14 [place] [facility] methocarbam 2019-09 Yes 500mg Take 500 U nivers ol 0-26 mg by ity of (ROBAXIN) 15:56: mouth 3 [place] 500 mg 14 (three) Medical tablet times Branch daily. Dexlansopra 2019-09 Yes Take by Un mateusz zole 0-26 mouth 3 ity of (DEXILANT) 15:56: (three) [place] 60 mg 14 times Medical capsule daily. Branch hydrocodone 2019-09 Yes Take by Un mateusz /acetaminop 0-26 mouth 4 ity o f hen 15:56: (four) [place] (VICODIN ES 14 times Medical ORAL) daily. Branch fluticasone 2019-09 Yes Use in Uni vers propionate 0-26 each ity of 50 15:56: nostril [place] mcg/actuati 14 daily. Medica l on nasal Branch spray Fluticasone 2019-09 Yes 1{puff} Inhale 1 Univers -Salmeterol 0-26 Puff 3 ity of (ADVAIR 15:56: (three) [place] DISKUS) 14 times Medical 500-50 daily. Branch mcg/dose inhalation disk proMETHazin 2019- Yes 25mg Take 25 mg Univers e 25 mg 0-26 by mouth ity of tablet 15:56: every 4 [place] 14 (four) Medical hours as Branch needed. chlordiazeP 2019- Yes 10mg Take 10 mg Univers OXIDE 10 mg 0-26 by mouth 3 it y of capsule 15:56: (three) [place] 14 times Medical daily. Branch isosorbide 2019-09 Yes 30mg Take 30 mg U nivers mononitrate 0-26 by mouth ity of 30 mg 24 hr 15:56: daily. [place] tablet 14 [place] Branch methocarbam 2019-09 Yes 500mg Take 500 U nivers ol 0-26 mg by ity of (ROBAXIN) 15:56: mouth 3 [place] 500 mg 14 (three) Medical tablet times Branch daily. Dexlansopra 2019-09 Yes Take by Un mateusz zole 0-26 mouth 3 ity of (DEXILANT) 15:56: (three) [place] 60 mg 14 times Medical capsule daily. Branch hydrocodone 2019-09 Yes Take by Un mateusz /acetaminop 0-26 mouth 4 ity o f hen 15:56: (four) [place] (VICODIN ES 14 times Medical ORAL) daily. Branch fluticasone 2019-09 Yes Use in Uni vers propionate 0-26 each ity of 50 15:56: nostril [place] mcg/actuati 14 daily. Medica l on nasal Branch spray Fluticasone 2019-09 Yes 1{puff} Inhale 1 Univers -Salmeterol 0-26 Puff 3 ity of (ADVAIR 15:56: (three) [place] DISKUS) 14 times Medical 500-50 daily. Branch mcg/dose inhalation disk proMETHazin 2019-09 Yes 25mg Take 25 mg Univers e 25 mg 0-26 by mouth ity of tablet 15:56: every 4 [place] 14 (four) Medical hours as Branch needed. chlordiazeP 2019-09 Yes 10mg Take 10 mg Univers OXIDE 10 mg 0-26 by mouth 3 it y of capsule 15:56: (three) [place] 14 times Medical daily. Branch isosorbide 2019-09 Yes 30mg Take 30 mg U nivers mononitrate 0-26 by mouth ity of 30 mg 24 hr 15:56: daily. [place] tablet 14 [place] [facility] methocarbam 2019-09 Yes 500mg Take 500 U nivers ol 0-26 mg by ity of (ROBAXIN) 15:56: mouth 3 [place] 500 mg 14 (three) Medical tablet times Branch daily. Dexlansopra 2019- Yes Take by Un mate[place]z zole 0-26 mouth 3 ity of (DEXILANT) 15:56: (three) [place] 60 mg 14 times Medical capsule daily. Branch hydrocodone 2019-09 Yes Take by Un mateusz /acetaminop 0-26 mouth 4 ity o f hen 15:56: (four) [place] (VICODIN ES 14 times Medical ORAL) daily. Branch fluticasone 2019-09 Yes Use in Uni vers propionate 0-26 each ity of 50 15:56: nostril [place] mcg/actuati 14 daily. Medica l on nasal Branch spray Fluticasone 2019-09 Yes 1{puff} Inhale 1 Univers -Salmeterol 0-26 Puff 3 ity of (ADVAIR 15:56: (three) [place] DISKUS) 14 times Medical 500-50 daily. Branch mcg/dose inhalation disk proMETHazin 2019-09 Yes 25mg Take 25 mg Univers e 25 mg 0-26 by mouth ity of tablet 15:56: every 4 [place] 14 (four) Medical hours as Branch needed. chlordiazeP 2019-09 Yes 10mg Take 10 mg Univers OXIDE 10 mg 0-26 by mouth 3 it y of capsule 15:56: (three) [place] 14 times Medical daily. Branch isosorbide 2019-09 Yes 30mg Take 30 mg U nivers mononitrate 0-26 by mouth ity of 30 mg 24 hr 15:56: daily. [place] tablet 14 [place] Branch methocarbam 2019-09 Yes 500mg Take 500 U nivers ol 0-26 mg by ity of (ROBAXIN) 15:56: mouth 3 [place] 500 mg 14 (three) Medical tablet times Branch daily. Dexlansopra 2019-09 Yes Take by Un mateusz zole 0-26 mouth 3 ity of (DEXILANT) 15:56: (three) [place] 60 mg 14 times Medical capsule daily. Branch hydrocodone 2019-09 Yes Take by Un mateusz /acetaminop 0-26 mouth 4 ity o f hen 15:56: (four) [place] (VICODIN ES 14 times Medical ORAL) daily. Branch fluticasone 2019-09 Yes Use in Uni vers propionate 0-26 each ity of 50 15:56: nostril [place] mcg/actuati 14 daily. Medica l on nasal Branch spray Fluticasone 2019-09 Yes 1{puff} Inhale 1 Univers -Salmeterol 0-26 Puff 3 ity of (ADVAIR 15:56: (three) [place] DISKUS) 14 times Medical 500-50 daily. Branch mcg/dose inhalation disk proMETHazin 2019-09 Yes 25mg Take 25 mg Univers e 25 mg 0-26 by mouth ity of tablet 15:56: every 4 [place] 14 (four) Medical hours as Branch needed. chlordiazeP 2019-09 Yes 10mg Take 10 mg Univers OXIDE 10 mg 0-26 by mouth 3 it y of capsule 15:56: (three) [place] 14 times Medical daily. Branch isosorbide 2019-09 Yes 30mg Take 30 mg U nivers mononitrate 0-26 by mouth ity of 30 mg 24 hr 15:56: daily. [place] tablet 14 [place] Branch methocarbam 2019-09 Yes 500mg Take 500 U nivers ol 0-26 mg by ity of (ROBAXIN) 15:56: mouth 3 [place] 500 mg 14 (three) Medical tablet times Branch daily. Dexlansopra 2019-09 Yes Take by Un mateusz zole 0-26 mouth 3 ity of (DEXILANT) 15:56: (three) [place] 60 mg 14 times Medical capsule daily. Branch hydrocodone 2019-09 Yes Take by Un mateusz /acetaminop 0-26 mouth 4 ity o f hen 15:56: (four) [place] (VICODIN ES 14 times Medical ORAL) daily. Branch fluticasone 2019-09 Yes Use in Uni vers propionate 0-26 each ity of 50 15:56: nostril [place] mcg/actuati 14 daily. Medica l on nasal Branch spray Fluticasone 2019-09 Yes 1{puff} Inhale 1 Univers -Salmeterol 0-26 Puff 3 ity of (ADVAIR 15:56: (three) [place] DISKUS) 14 times Medical 500-50 daily. Branch mcg/dose inhalation disk proMETHazin 2019-09 Yes 25mg Take 25 mg Univers e 25 mg 0-26 by mouth ity of tablet 15:56: every 4 [place] 14 (four) Medical hours as Branch needed. chlordiazeP 2019-09 Yes 10mg Take 10 mg Univers OXIDE 10 mg 0-26 by mouth 3 it y of capsule 15:56: (three) [place] 14 times Medical daily. Branch isosorbide 2019-09 Yes 30mg Take 30 mg U nivers mononitrate 0-26 by mouth ity of 30 mg 24 hr 15:56: daily. [place] tablet 14 [place] Branch methocarbam 2019-09 Yes 500mg Take 500 U nivers ol 0-26 mg by ity of (ROBAXIN) 15:56: mouth 3 [place] 500 mg 14 (three) Medical tablet times Branch daily. Dexlansopra 2020- Yes Take by Un mateusz zole 0-26 mouth 3 ity of (DEXILANT) 15:56: (three) [place] 60 mg 14 times Medical capsule daily. Branch hydrocodone 2019-09 Yes Take by Un mateusz /acetaminop 0-26 mouth 4 ity o f hen 15:56: (four) [place] (VICODIN ES 14 times Medical ORAL) daily. Branch fluticasone 2019-09 Yes Use in Uni vers propionate 0-26 each ity of 50 15:56: nostril [place] mcg/actuati 14 daily. Medica l on nasal Branch spray Fluticasone 2019-09 Yes 1{puff} Inhale 1 Univers -Salmeterol 0-26 Puff 3 ity of (ADVAIR 15:56: (three) [place] DISKUS) 14 times Medical 500-50 daily. Branch mcg/dose inhalation disk proMETHazin 2019-09 Yes 25mg Take 25 mg Univers e 25 mg 0-26 by mouth ity of tablet 15:56: every 4 [place] 14 (four) Medical hours as Branch needed. chlordiazeP 2019- Yes 10mg Take 10 mg Univers OXIDE 10 mg 0-26 by mouth 3 it y of capsule 15:56: (three) [place] 14 times Medical daily. Branch isosorbide 2019-09 Yes 30mg Take 30 mg U nivers mononitrate 0-26 by mouth ity of 30 mg 24 hr 15:56: daily. [place] tablet 14 [place] Branch methocarbam 2019-09 Yes 500mg Take 500 U nivers ol 0-26 mg by ity of (ROBAXIN) 15:56: mouth 3 [place] 500 mg 14 (three) Medical tablet times Branch daily. Dexlansopra 2020- Yes Take by Un mate[place]z zole 0-26 mouth 3 ity of (DEXILANT) 15:56: (three) [place] 60 mg 14 times Medical capsule daily. Branch hydrocodone 2019- Yes Take by Un mateusz /acetaminop 0-26 mouth 4 ity o f hen 15:56: (four) [place] (VICODIN ES 14 times Medical ORAL) daily. Branch fluticasone 2019- Yes Use in Uni vers propionate 0-26 each ity of 50 15:56: nostril [place] mcg/actuati 14 daily. Medica l on nasal Branch spray Fluticasone 2019- Yes 1{puff} Inhale 1 Univers -Salmeterol 0-26 Puff 3 ity of (ADVAIR 15:56: (three) [place] DISKUS) 14 times Medical 500-50 daily. Branch mcg/dose inhalation disk proMETHazin 2019-09 Yes 25mg Take 25 mg Univers e 25 mg 0-26 by mouth ity of tablet 15:56: every 4 [place] 14 (four) Medical hours as Branch needed. chlordiazeP 2019-09 Yes 10mg Take 10 mg Univers OXIDE 10 mg 0-26 by mouth 3 it y of capsule 15:56: (three) [place] 14 times Medical daily. Branch isosorbide 2019-09 Yes 30mg Take 30 mg U nivers mononitrate 0-26 by mouth ity of 30 mg 24 hr 15:56: daily. [place] tablet 14 [place] Branch methocarbam 2019-09 Yes 500mg Take 500 U nivers ol 0-26 mg by ity of (ROBAXIN) 15:56: mouth 3 [place] 500 mg 14 (three) Medical tablet times Branch daily. Dexlansopra 2019-09 Yes Take by Un mate[place]z zole 0-26 mouth 3 ity of (DEXILANT) 15:56: (three) [place] 60 mg 14 times Medical capsule daily. Branch hydrocodone 2019-09 Yes Take by Un mateusz /acetaminop 0-26 mouth 4 ity o f hen 15:56: (four) [place] (VICODIN ES 14 times Medical ORAL) daily. Branch fluticasone 2019-09 Yes Use in Uni vers propionate 0-26 each ity of 50 15:56: nostril [place] mcg/actuati 14 daily. Medica l on nasal Branch spray Fluticasone 2020- Yes 1{puff} Inhale 1 Univers -Salmeterol 0-26 Puff 3 ity of (ADVAIR 15:56: (three) [place] DISKUS) 14 times Medical 500-50 daily. Branch mcg/dose inhalation disk proMETHazin 2019-09 Yes 25mg Take 25 mg Univers e 25 mg 0-26 by mouth ity of tablet 15:56: every 4 [place] 14 (four) Medical hours as Branch needed. chlordiazeP 2019- Yes 10mg Take 10 mg Univers OXIDE 10 mg 0-26 by mouth 3 it y of capsule 15:56: (three) [place] 14 times Medical daily. Branch isosorbide 2019-09 Yes 30mg Take 30 mg U nivers mononitrate 0-26 by mouth ity of 30 mg 24 hr 15:56: daily. [place] tablet 14 [place] [facility] methocarbam 2019-09 Yes 500mg Take 500 U nivers ol 0-26 mg by ity of (ROBAXIN) 15:56: mouth 3 [place] 500 mg 14 (three) Medical tablet times Branch daily. Dexlansopra 2019- Yes Take by Un mate[place]z zole 0-26 mouth 3 ity of (DEXILANT) 15:56: (three) [place] 60 mg 14 times Medical capsule daily. Branch hydrocodone 2019-09 Yes Take by Un mateusz /acetaminop 0-26 mouth 4 ity o f hen 15:56: (four) [place] (VICODIN ES 14 times Medical ORAL) daily. Branch fluticasone 2019-09 Yes Use in Uni vers propionate 0-26 each ity of 50 15:56: nostril [place] mcg/actuati 14 daily. Medica l on nasal Branch spray Fluticasone 2019-09 Yes 1{puff} Inhale 1 [facility] -Salmeterol 0-26 Puff 3 ity of (ADVAIR 15:56: (three) [place] DISKUS) 14 times Medical 500-50 daily. Branch mcg/dose inhalation disk proMETHazin 2019-09 Yes 25mg Take 25 mg [facility] e 25 mg 0-26 by mouth ity of tablet 15:56: every 4 [place] 14 (four) Medical hours as Branch needed. chlordiazeP 2019- Yes 10mg Take 10 mg [facility] OXIDE 10 mg 0-26 by mouth 3 it y of capsule 15:56: (three) [place] 14 times Medical daily. Branch chlordiazeP 2020- Yes 10mg Take 10 mg [facility] OXIDE 10 mg 0-26 by mouth 3 it y of capsule 10:56: (three) [place] 14 times Medical daily. Branch isosorbide 2019- Yes 30mg Take 30 mg [facility] n[facility] mononitrate 0-26 by mouth [facility] 30 mg 24 hr 10:56: [place]. [place] tablet 14 [facility] methocarbam 2019-09 Yes 500mg Take 500 U nivers ol 0-26 mg by ity of (ROBAXIN) 10:56: mouth 3 [place] 500 mg 14 (three) Medical tablet times Branch daily. Dexlansopra 2019- Yes Take by [facility] zole 0-26 mouth 3 it[facility] of (DEXILANT) 10:56: (three) [place] 60 mg 14 times Medical capsule daily. Branch hydrocodone 2019-09 Yes Take by [facility] /acetaminop 0-26 mouth 4 ity o f hen 10:56: (four) [place] (VICODIN ES 14 times Medical ORAL) daily. Branch fluticasone 2019-09 Yes Use in [facility] vers propionate 0-26 each ity of 50 10:56: nostril [place] mcg/actuati 14 daily. Medica l on nasal Branch spray Fluticasone 2019-09 Yes 1{puff} Inhale 1 [facility] -Salmeterol 0-26 Puff 3 ity of (ADVAIR 10:56: (three) [place] DISKUS) 14 times Medical 500-50 daily. Branch mcg/dose inhalation disk proMETHazin 2019-09 Yes 25mg Take 25 mg [facility] e 25 mg 0-26 by mouth ity of tablet 10:56: every 4 [place] 14 (four) Medical hours as Branch needed. chlordiazeP 2019-09 Yes 10mg Take 10 mg [facility] OXIDE 10 mg 0-26 by mouth 3 it y of capsule 10:56: (three) [place] 14 times Medical daily. Branch isosorbide 2019-09 Yes 30mg Take 30 mg [facility] mononitrate 0-26 by mouth it[facility] of 30 mg 24 hr 10:56: daily. [place] tablet 14 [facility] methocarbam 2019-09 Yes 500mg Take 500 U nivers ol 0-26 mg by ity of (ROBAXIN) 10:56: mouth 3 [place] 500 mg 14 (three) Medical tablet times [place] daily. Dexlansopra 2019- Yes Take by [facility] zole 0-26 mouth 3 ity of (DEXILANT) 10:56: (three) [place] 60 mg 14 times Medical capsule daily. Branch hydrocodone 2019-09 Yes Take by [facility] /acetaminop 0-26 mouth 4 ity o f hen 10:56: (four) [place] (VICODIN ES 14 times Medical ORAL) daily. Branch fluticasone 2019-09 Yes Use in [facility] vers propionate 0-26 each ity of 50 10:56: nostril [place] mcg/actuati 14 daily. Medica l on nasal Branch spray Fluticasone 2019-09 Yes 1{puff} Inhale 1 [facility] -Salmeterol 0-26 Puff 3 ity of (ADVAIR 10:56: (three) [place] DISKUS) 14 times Medical 500-50 daily. Branch mcg/dose inhalation disk proMETHazin 2019-09 Yes 25mg Take 25 mg [facility] e 25 mg 0-26 by mouth ity of tablet 10:56: every 4 [place] 14 (four) Medical hours as Branch needed. chlordiazeP 2019-09 Yes 10mg Take 10 mg [facility] OXIDE 10 mg 0-26 by mouth 3 it y of capsule 10:56: (three) [place] 14 times Medical daily. Branch isosorbide 2019-09 Yes 30mg Take 30 mg [facility] n[facility] mononitrate 0-26 by mouth ity of 30 mg 24 hr 10:56: daily. [place] tablet 14 [facility] methocarbam 2019-09 Yes 500mg Take 500 U nivers ol 0-26 mg by ity of (ROBAXIN) 10:56: mouth 3 [place] 500 mg 14 (three) Medical tablet times Branch daily. Dexlansopra 2019-09 Yes Take by [facility] zole 0-26 mouth 3 ity of (DEXILANT) 10:56: (three) [place] 60 mg 14 times Medical capsule daily. Branch hydrocodone 2019-09 Yes Take by [facility] /acetaminop 0-26 mouth 4 ity o f hen 10:56: (four) [place] (VICODIN ES 14 times Medical ORAL) daily. Branch fluticasone 2019-09 Yes Use in [facility] vers propionate 0-26 each ity of 50 10:56: nostril [place] mcg/actuati 14 daily. Medica l on nasal Branch spray Fluticasone 2019- Yes 1{puff} Inhale 1 [facility] -Salmeterol 0-26 Puff 3 ity of (ADVAIR 10:56: (three) [place] DISKUS) 14 times Medical 500-50 daily. Branch mcg/dose inhalation disk proMETHazin 2019-09 Yes 25mg Take 25 mg [facility] e 25 mg 0-26 by mouth ity of tablet 10:56: every 4 [place] 14 (four) Medical hours as Branch needed. chlordiazeP 2019-09 Yes 10mg Take 10 mg [facility] OXIDE 10 mg 0-26 by mouth 3 it y of capsule 10:56: (three) [place] 14 times Medical daily. Branch isosorbide 2019-09 Yes 30mg Take 30 mg [facility] nivers mononitrate 0-26 by mouth ity of 30 mg 24 hr 10:56: daily. [place] tablet 14 [facility] methocarbam 2019-09 Yes 500mg Take 500 U nivers ol 0-26 mg by ity of (ROBAXIN) 10:56: mouth 3 [place] 500 mg 14 (three) Medical tablet times Branch daily. Dexlansopra 2019-09 Yes Take by [facility] zole 0-26 mouth 3 ity of (DEXILANT) 10:56: (three) [place] 60 mg 14 times Medical capsule daily. Branch hydrocodone 2019-09 Yes Take by [facility] /acetaminop 0-26 mouth 4 ity o f hen 10:56: (four) [place] (VICODIN ES 14 times Medical ORAL) daily. Branch fluticasone 2019-09 Yes Use in [facility] vers propionate 0-26 each ity of 50 10:56: nostril [place] mcg/actuati 14 daily. Medica l on nasal Branch spray Fluticasone 2019-09 Yes 1{puff} Inhale 1 [facility] -Salmeterol 0-26 Puff 3 ity of (ADVAIR 10:56: (three) [place] DISKUS) 14 times Medical 500-50 daily. Branch mcg/dose inhalation disk proMETHazin 2019-09 Yes 25mg Take 25 mg [facility] e 25 mg 0-26 by mouth ity of tablet 10:56: every 4 [place] 14 (four) Medical hours as Branch needed. enalapril 2019-09 Yes HFrEF 10mg Take 1 [facility] rs 10 mg 0-26 (heart tablet by ity of tablet 00:00: failure mouth 2 [place] 00 with (two) Medical reduced times Branch ejection daily. fraction) enalapril 2019-09 Yes [id number] 10mg Take 1 [facility] nivers 10 mg 0-26 tablet by ity of tablet 00:00: mouth 2 [place] 00 (two) Medical times Branch daily. enalapril 2019-09 Yes [id number] 10mg Take 1 [facility] n[facility] 10 mg 0-26 tablet by ity of tablet 00:00: mouth (two) Medical times Branch daily. enalapril 2020- Yes [id number] 10mg Take 1 [facility] n[facility] 10 mg 0-26 tablet by ity of tablet 00:00: mouth (two) Medical times Branch daily. enalapril 2019-1 Yes [id number] 10mg Take 1 [facility] n[facility] 10 mg 0-26 tablet by ity of tablet 00:00: mouth (two) Medical times Branch daily. enalapril 2019- Yes [id number] 10mg Take 1 [facility] n[facility] 10 mg 0-26 tablet by ity of tablet 00:00: mouth (two) Medical times Branch daily. enalapril 2019- Yes [id number] 10mg Take 1 [facility] n[facility] 10 mg 0-26 tablet by ity of tablet 00:00: mouth (two) Medical times Branch daily. enalapril 2019- Yes [id number] 10mg Take 1 [facility] 10 mg 0-26 tablet by ity of tablet 00:00: mouth (two) Medical times Branch daily. enalapril 2019- Yes [id number] 10mg Take 1 [facility] 10 mg 0-26 tablet by ity of tablet 00:00: mouth (two) Medical times Branch daily. enalapril 2019- Yes [id number] 10mg Take 1 [facility] n[facility] 10 mg 0-26 tablet by ity of tablet 00:00: mouth (two) Medical times Branch daily. enalapril 2019-1 Yes [id number] 10mg Take 1 [facility] nivers 10 mg 0-26 tablet by ity of tablet 00:00: mouth (two) Medical times Branch daily. enalapril 2019-1 Yes [id number] 10mg Take 1 [facility] n[facility] 10 mg 0-26 tablet by ity of tablet 00:00: mouth (two) Medical times Branch daily. enalapril 2019-1 Yes [id number] 10mg Take 1 [facility] 10 mg 0-26 tablet by ity of tablet 00:00: mouth (two) Medical times Branch daily. enalapril 2019- Yes [id number] 10mg Take 1 [facility] n[facility] 10 mg 0-26 tablet by ity of tablet 00:00: mouth (two) Medical times Branch daily. enalapril 2020-1 Yes [id number] 10mg Take 1 [facility] n[facility] 10 mg 0-26 tablet by ity of tablet 00:00: mouth (two) Medical times Branch daily. enalapril 2020-1 Yes [id number] 10mg Take 1 [facility] n[facility] 10 mg 0-26 tablet by ity of tablet 00:00: mouth (two) Medical times Branch daily. enalapril 2020-1 Yes [id number] 10mg Take 1 [facility] n[facility] 10 mg 0-26 tablet by ity of tablet 00:00: mouth (two) Medical times Branch daily. enalapril 2020-1 Yes [id number] 10mg Take 1 [facility] 10 mg 0-26 tablet by ity of tablet 00:00: mouth (two) Medical times Branch daily. enalapril 2020-1 Yes [id number] 10mg Take 1 [facility] n[facility] 10 mg 0-26 tablet by ity of tablet 00:00: mouth (two) Medical times Branch daily. carvediloL 2020-0 Yes 3.125mg Take 1 [facility] 3.125 mg 7-10 tablet by ity of tablet 00:00: mouth (two) Medical times Branch daily with meals. carvediloL 2020-0 Yes 3.125mg Take 1 [facility] [place] 3.125 mg 7-10 tablet by ity of tablet 00:00: mouth (two) Medical times Branch daily with meals. carvediloL 2020-0 Yes 3.125mg Take 1 [facility] 3.125 mg 7-10 tablet by ity of tablet 00:00: mouth (two) Medical times Branch daily with meals. carvediloL 2020-0 Yes 3.125mg Take 1 [facility] 3.125 mg 7-10 tablet by ity of tablet 00:00: mouth (two) Medical times Branch daily with meals. carvediloL 2020-0 Yes 3.125mg Take 1 [facility] [place] 3.125 mg 7-10 tablet by ity of tablet 00:00: mouth (two) Medical times Branch daily with meals. carvediloL 2020-0 Yes 3.125mg Take 1 [facility] 3.125 mg 7-10 tablet by ity of tablet 00:00: mouth (two) Medical times Branch daily with meals. carvediloL 2020-0 Yes 3.125mg Take 1 [facility] [place] 3.125 mg 7-10 tablet by ity of tablet 00:00: mouth (two) Medical times Branch daily with meals. carvediloL 2020-0 Yes 3.125mg Take 1 [facility] [place] 3.125 mg 7-10 tablet by ity of tablet 00:00: mouth (two) Medical times Branch daily with meals. carvediloL 2020-0 Yes 3.125mg Take 1 [facility] 3.125 mg 7-10 tablet by ity of tablet 00:00: mouth (two) Medical times Branch daily with meals. carvediloL 2020-0 Yes 3.125mg Take 1 [facility] 3.125 mg 7-10 tablet by ity of tablet 00:00: mouth (two) Medical times Branch daily with meals. carvediloL 2020-0 Yes 3.125mg Take 1 [facility] 3.125 mg 7-10 tablet by ity of tablet 00:00: mouth (two) Medical times Branch daily with meals. carvediloL 2020-0 Yes 3.125mg Take 1 [facility] [place] 3.125 mg 7-10 tablet by ity of tablet 00:00: mouth (two) Medical times Branch daily with meals. carvediloL 2020-0 Yes 3.125mg Take 1 [facility] [place] 3.125 mg 7-10 tablet by ity of tablet 00:00: mouth (two) Medical times Branch daily with meals. carvediloL 2020-0 Yes 3.125mg Take 1 [facility] 3.125 mg 7-10 tablet by ity of tablet 00:00: mouth (two) Medical times Branch daily with meals. carvediloL 2020-0 Yes 3.125mg Take 1 [facility] 3.125 mg 7-10 tablet by ity of tablet 00:00: mouth (two) Medical times Branch daily with meals. carvediloL 2020-0 Yes 3.125mg Take 1 [facility] 3.125 mg 7-10 tablet by ity of tablet 00:00: mouth (two) Medical times Branch daily with meals. carvediloL 2020-0 Yes 3.125mg Take 1 [facility] [place] 3.125 mg 7-10 tablet by ity of tablet 00:00: mouth (two) Medical times Branch daily with meals. carvediloL 2020-0 Yes 3.125mg Take 1 [facility] 3.125 mg 7-10 tablet by ity of tablet 00:00: mouth (two) Medical times Branch daily with meals. carvediloL 2020-0 Yes 3.125mg Take 1 [facility] 3.125 mg 7-10 tablet by ity of tablet 00:00: mouth (two) Medical times Branch daily with meals. carvediloL 2020-0 Yes 3.125mg Take 1 [facility] [place] 3.125 mg 7-10 tablet by ity of tablet 00:00: mouth (two) Medical times Branch daily with meals. carvediloL 2020-0 Yes 3.125mg Take 1 [facility] 3.125 mg 7-10 tablet by ity of tablet 00:00: mouth (two) Medical times Branch daily with meals. carvediloL 2020-0 Yes 3.125mg Take 1 [facility] 3.125 mg 7-10 tablet by ity of tablet 00:00: mouth (two) Medical times Branch daily with meals. carvediloL 2020-0 Yes 3.125mg Take 1 [facility] [place] 3.125 mg 7-10 tablet by ity of tablet 00:00: mouth (two) Medical times Branch daily with meals. carvediloL 2020-0 Yes 3.125mg Take 1 [facility] [place] 3.125 mg 7-10 tablet by ity of tablet 00:00: mouth (two) Medical times Branch daily with meals. carvediloL 2020-0 Yes 3.125mg Take 1 [facility] [place] 3.125 mg 7-10 tablet by ity of tablet 00:00: mouth (two) Medical times Branch daily with meals. carvediloL 2020-0 Yes 3.125mg Take 1 [facility] [place] 3.125 mg 7-10 tablet by ity of tablet 00:00: mouth (two) Medical times Branch daily with meals. carvediloL 2020-0 Yes 3.125mg Take 1 [facility] 3.125 mg 7-10 tablet by ity of tablet 00:00: mouth (two) Medical times Branch daily with meals. carvediloL 2020-0 Yes 3.125mg Take 1 [facility] [place] 3.125 mg 7-10 tablet by ity of tablet 00:00: mouth (two) Medical times Branch daily with meals. carvediloL 2020-0 Yes 3.125mg Take 1 [facility] 3.125 mg 7-10 tablet by ity of tablet 00:00: mouth (two) Medical times Branch daily with meals. carvediloL 2020-0 Yes 3.125mg Take 1 [facility] [place] 3.125 mg 7-10 tablet by ity of tablet 00:00: mouth (two) Medical times Branch daily with meals. carvediloL 2020-0 Yes 3.125mg Take 1 [facility] [place] 3.125 mg 7-10 tablet by ity of tablet 00:00: mouth (two) Medical times Branch daily with meals. carvediloL 2020-0 Yes 3.125mg Take 1 [facility] [place] 3.125 mg 7-10 tablet by ity of tablet 00:00: mouth (two) Medical times Branch daily with meals. carvediloL 2020-0 Yes 3.125mg Take 1 [facility] [place] 3.125 mg 7-10 tablet by ity of tablet 00:00: mouth (two) Medical times Branch daily with meals. carvediloL 2020-0 Yes 3.125mg Take 1 [facility] 3.125 mg 7-10 tablet by ity of tablet 00:00: mouth (two) Medical times Branch daily with meals. carvediloL 2020-0 Yes 3.125mg Take 1 [facility] 3.125 mg 7-10 tablet by ity of tablet 00:00: mouth (two) Medical times Branch daily with meals. carvediloL 2020-0 Yes 3.125mg Take 1 [facility] [place] 3.125 mg 7-10 tablet by ity of tablet 00:00: mouth (two) Medical times Branch daily with meals. enalapril 2020-0 2020- No Take by [facility] vers 10 mg 7-02 -29 mouth ity of tablet 12:47: 00:00 daily. [place] 06 :00 Medical Branch enalapril 2020-0 2020- No Take by [facility] vers 10 mg 7-02 -29 mouth ity of tablet 12:47: 00:00 daily. [place] 06 :00 Medical Branch enalapril 2020-0 2020- No Take by [facility] vers 10 mg 7-02 -29 mouth ity of tablet 12:47: 00:00 daily. [place] 06 :00 Medical Branch enalapril 2020-0 2020- No Take by [facility] vers 10 mg 7-02 - mouth ity of tablet 12:47: 00:00 daily. [place] 06 :00 Medical Branch carvediloL 2020-0 Yes 6.25mg Take 1 [facility] vers 6.25 mg 6-29 tablet by ity of tablet 00:00: mouth (two) Medical times Branch daily with meals. enalapril 2020-0 Yes 10mg Take 1 Un[facility] s 10 mg 6-29 tablet by ity of tablet 00:00: mouth (two) Medical times Branch daily. carvediloL 2020-0 Yes 6.25mg Take 1 [facility] vers 6.25 mg 6-29 tablet by ity of tablet 00:00: mouth (two) Medical times Branch daily with meals. enalapril 2020-0 Yes 10mg Take 1 [facility] s 10 mg 6-29 tablet by ity of tablet 00:00: mouth (two) Medical times Branch daily. enalapril 2020-0 Yes 10mg Take 1 [facility] s 10 mg 6-29 tablet by ity of tablet 00:00: mouth 2 (two) Medical times Branch daily. enalapril 2020-0 Yes 10mg Take 1 Un[facility] s 10 mg 6-29 tablet by ity of tablet 00:00: mouth (two) Medical times Branch daily. enalapril 2020-0 Yes 10mg Take 1 Un[facility] s 10 mg 6-29 tablet by ity of tablet 00:00: mouth 2 (two) Medical times Branch daily. enalapril 2020-0 Yes 10mg Take 1 Un[facility] s 10 mg 6-29 tablet by ity of tablet 00:00: mouth 2 (two) Medical times Branch daily. enalapril 2020-0 Yes 10mg Take 1 Un[facility] s 10 mg 6-29 tablet by ity of tablet 00:00: mouth 2 (two) Medical times Branch daily. enalapril 2020-0 Yes 10mg Take 1 Un[facility] s 10 mg 6-29 tablet by ity of tablet 00:00: mouth 2 (two) Medical times Branch daily. enalapril 2020-0 Yes 10mg Take 1 Un[facility] s 10 mg 6-29 tablet by ity of tablet 00:00: mouth 2 (two) Medical times Branch daily. enalapril 2020-0 Yes 10mg Take 1 Un[facility] s 10 mg 6-29 tablet by ity of tablet 00:00: mouth (two) Medical times Branch daily. enalapril 2020-0 Yes 10mg Take 1 Univer s 10 mg 6-29 tablet by ity of tablet 00:00: mouth (two) Medical times Branch daily. enalapril 2020-0 Yes 10mg Take 1 Un[facility] s 10 mg 6-29 tablet by ity of tablet 00:00: mouth (two) Medical times Branch daily. enalapril 2020-0 Yes 10mg Take 1 Un[facility] s 10 mg 6-29 tablet by ity of tablet 00:00: mouth (two) Medical times Branch daily. enalapril 2020-0 Yes 10mg Take 1 Un[facility] s 10 mg 6-29 tablet by ity of tablet 00:00: mouth (two) Medical times Branch daily. enalapril 2020-0 Yes 10mg Take 1 Un[facility] s 10 mg 6-29 tablet by ity of tablet 00:00: mouth (two) Medical times Branch daily. enalapril 2020-0 Yes 10mg Take 1 Un[facility] s 10 mg 6-29 tablet by ity of tablet 00:00: mouth 2 (two) Medical times Branch daily. enalapril 2020-0 Yes 10mg Take 1 Un[facility] s 10 mg 6-29 tablet by ity of tablet 00:00: mouth 2 (two) Medical times Branch daily. enalapril 2020-0 Yes 10mg Take 1 Univer s 10 mg 6-29 tablet by ity of tablet 00:00: mouth 2 [place] 00 (two) Medical times Branch daily. enalapril 2020-0 2020- No 10mg Take 1 [facility] rs 10 mg 6-29 10-26 tablet by ity of tablet 00:00: 00:00 mouth 2 [place] 00 :00 (two) Medical times Branch daily. enalapril 2020-0 2020- No 10mg Take 1 Un[facility] rs 10 mg 6-29 10-26 tablet by ity of tablet 00:00: 00:00 mouth 2 [place] 00 :00 (two) Medical times Branch daily. carvediloL 2020-0 2020- No 6.25mg Take 1 [facility] 6.25 mg 6-29 07-10 tablet by ity of tablet 00:00: 00:00 mouth 2 [place] 00 :00 (two) Medical times Branch daily with meals. carvediloL 2020-0 2020- No 6.25mg Take 1 [facility] 6.25 mg 6-29 07-10 tablet by ity of tablet 00:00: 00:00 mouth 2 [place] 00 :00 (two) Medical times Branch daily with meals. carvediloL 2020-0 2020- No 6.25mg Take 1 [facility] 6.25 mg 6-29 07-10 tablet by ity of tablet 00:00: 00:00 mouth 2 [place] 00 :00 (two) Medical times Branch daily with meals. proMETHazin 2018-09 Yes 25mg Take 25 mg [facility] e 25 mg 0-16 by mouth ity of tablet 19:35: every 4 [place] [id number] (four) Medical hours as Branch needed. proMETHazin 2018-09 Yes 25mg Take 25 mg [facility] e 25 mg 0-16 by mouth ity of tablet 19:35: every 4 [place] [id number] (four) Medical hours as Branch needed. proMETHazin 2018-09 Yes 25mg Take 25 mg [facility] e 25 mg 0-16 by mouth ity of tablet 19:35: every 4 [place] [id number] (four) Medical hours as Branch needed. proMETHazin 2018-09 Yes 25mg Take 25 mg [facility] e 25 mg 0-16 by mouth ity of tablet 19:35: every 4 [place] [id number] (four) Medical hours as Branch needed. proMETHazin 2018-09 Yes 25mg Take 25 mg [facility] e 25 mg 0-16 by mouth ity of tablet 19:35: every 4 [place] [id number] (four) Medical hours as Branch needed. proMETHazin 2018-09 Yes 25mg Take 25 mg [facility] e 25 mg 0-16 by mouth ity of tablet 19:35: every 4 [place] 43 (four) Medical hours as Branch needed. proMETHazin 2018-09 Yes 25mg Take 25 mg [facility] e 25 mg 0-16 by mouth ity of tablet 19:35: every 4 [place] 43 (four) Medical hours as Branch needed. proMETHazin 2018-09 Yes 25mg Take 25 mg [facility] e 25 mg 0-16 by mouth ity of tablet 19:35: every 4 [place] 43 (four) Medical hours as Branch needed. proMETHazin 2018-09 Yes 25mg Take 25 mg [facility] e 25 mg 0-16 by mouth ity of tablet 19:35: every 4 [place] 43 (four) Medical hours as Branch needed. proMETHazin 2018-09 Yes 25mg Take 25 mg [facility] e 25 mg 0-16 by mouth ity of tablet 19:35: every 4 [place] 43 (four) Medical hours as Branch needed. proMETHazin 2018-09 Yes 25mg Take 25 mg [facility] e 25 mg 0-16 by mouth ity of tablet 19:35: every 4 [place] 43 (four) Medical hours as Branch needed. proMETHazin 2018-09 Yes 25mg Take 25 mg [facility] e 25 mg 0-16 by mouth ity of tablet 19:35: every 4 [place] 43 (four) Medical hours as Branch needed. proMETHazin 2018-09 Yes 25mg Take 25 mg [facility] e 25 mg 0-16 by mouth ity of tablet 19:35: every 4 [place] 43 (four) Medical hours as Branch needed. proMETHazin 2018-09 Yes 25mg Take 25 mg [facility] e 25 mg 0-16 by mouth ity of tablet 19:35: every 4 [place] 43 (four) Medical hours as Branch needed. proMETHazin 2018-09 Yes 25mg Take 25 mg [facility] e 25 mg 0-16 by mouth ity of tablet 19:35: every 4 [place] 43 (four) Medical hours as Branch needed. proMETHazin 2018-09 Yes 25mg Take 25 mg [facility] e 25 mg 0-16 by mouth ity of tablet 19:35: every 4 [place] 43 (four) Medical hours as Branch needed. proMETHazin 2018-09 Yes 25mg Take 25 mg [facility] e 25 mg 0-16 by mouth ity of tablet 19:35: every 4 [place] 43 (four) Medical hours as Branch needed. proMETHazin 2018-09 Yes 25mg Take 25 mg [facility] e 25 mg 0-16 by mouth ity of tablet 19:35: every 4 [place] 43 (four) Medical hours as Branch needed. proMETHazin 2018-09 Yes 25mg Take 25 mg [facility] e 25 mg 0-16 by mouth ity of tablet 19:35: every 4 [place] 43 (four) Medical hours as Branch needed. proMETHazin 2018-09 Yes 25mg Take 25 mg [facility] e 25 mg 0-16 by mouth ity of tablet 19:35: every 4 [place] 43 (four) Medical hours as Branch needed. proMETHazin 2018-09 Yes 25mg Take 25 mg [facility] e 25 mg 0-16 by mouth ity of tablet 19:35: every 4 [place] 43 (four) Medical hours as Branch needed. proMETHazin 2018-09 Yes 25mg Take 25 mg [facility] e 25 mg 0-16 by mouth ity of tablet 19:35: every 4 [place] 43 (four) Medical hours as Branch needed. proMETHazin 2018-09 Yes 25mg Take 25 mg [facility] e 25 mg 0-16 by mouth ity of tablet 19:35: every 4 [place] 43 (four) Medical hours as Branch needed. proMETHazin 2018-09 Yes 25mg Take 25 mg [facility] e 25 mg 0-16 by mouth ity of tablet 19:35: every 4 [place] 43 (four) Medical hours as Branch needed. proMETHazin 2018-09 Yes 25mg Take 25 mg [facility] e 25 mg 0-16 by mouth ity of tablet 19:35: every 4 [place] 43 (four) Medical hours as Branch needed. proMETHazin 2018-09 Yes 25mg Take 25 mg [facility] e 25 mg 0-16 by mouth ity of tablet 19:35: every 4 [place] 43 (four) Medical hours as Branch needed. fluticasone 2018-09 Yes Use in [facility] vers propionate 0-16 each ity of 50 19:34: nostril [place] mcg/actuati 31 daily. Medica l on nasal Branch spray Fluticasone 2018-09 Yes 1{puff} Inhale 1 [facility] -Salmeterol 0-16 Puff 3 ity of (ADVAIR 19:34: (three) [place] DISKUS) 31 times Medical 500-50 daily. Branch mcg/dose inhalation disk fluticasone 2018-09 Yes Use in [facility] vers propionate 0-16 each ity of 50 19:34: nostril [place] mcg/actuati 31 daily. Medica l on nasal Branch spray Fluticasone 2018-09 Yes 1{puff} Inhale 1 [facility] -Salmeterol 0-16 Puff 3 ity of (ADVAIR 19:34: (three) [place] DISKUS) 31 times Medical 500-50 daily. Branch mcg/dose inhalation disk fluticasone 2018-09 Yes Use in [facility] vers propionate 0-16 each ity of 50 19:34: nostril [place] mcg/actuati 31 daily. Medica l on nasal Branch spray Fluticasone 2018-09 Yes 1{puff} Inhale 1 [facility] -Salmeterol 0-16 Puff 3 ity of (ADVAIR 19:34: (three) [place] DISKUS) 31 times Medical 500-50 daily. Branch mcg/dose inhalation disk fluticasone 2018-09 Yes Use in [facility] vers propionate 0-16 each ity of 50 19:34: nostril [place] mcg/actuati 31 daily. Medica l on nasal Branch spray Fluticasone 2018-09 Yes 1{puff} Inhale 1 [facility] -Salmeterol 0-16 Puff 3 ity of (ADVAIR 19:34: (three) [place] DISKUS) 31 times Medical 500-50 daily. Branch mcg/dose inhalation disk fluticasone 2018-09 Yes Use in [facility] vers propionate 0-16 each ity of 50 19:34: nostril [place] mcg/actuati 31 daily. Medica l on nasal Branch spray Fluticasone 2018-09 Yes 1{puff} Inhale 1 [facility] -Salmeterol 0-16 Puff 3 ity of (ADVAIR 19:34: (three) [place] DISKUS) 31 times Medical 500-50 daily. Branch mcg/dose inhalation disk fluticasone 2018-09 Yes Use in [facility] vers propionate 0-16 each ity of 50 19:34: nostril [place] mcg/actuati 31 daily. Medica l on nasal Branch spray Fluticasone 2018-09 Yes 1{puff} Inhale 1 [facility] -Salmeterol 0-16 Puff 3 ity of (ADVAIR 19:34: (three) [place] DISKUS) 31 times Medical 500-50 daily. Branch mcg/dose inhalation disk fluticasone 2018-09 Yes Use in [facility] vers propionate 0-16 each ity of 50 19:34: nostril [place] mcg/actuati 31 daily. Medica l on nasal Branch spray Fluticasone 2018-09 Yes 1{puff} Inhale 1 [facility] -Salmeterol 0-16 Puff 3 ity of (ADVAIR 19:34: (three) [place] DISKUS) 31 times Medical 500-50 daily. Branch mcg/dose inhalation disk fluticasone 2018-09 Yes Use in [facility] vers propionate 0-16 each ity of 50 19:34: nostril [place] mcg/actuati 31 daily. Medica l on nasal Branch spray Fluticasone 2018-09 Yes 1{puff} Inhale 1 [facility] -Salmeterol 0-16 Puff 3 ity of (ADVAIR 19:34: (three) [place] DISKUS) 31 times Medical 500-50 daily. Branch mcg/dose inhalation disk fluticasone 2018-09 Yes Use in [facility] vers propionate 0-16 each ity of 50 19:34: nostril [place] mcg/actuati 31 daily. Medica l on nasal Branch spray Fluticasone 2018-09 Yes 1{puff} Inhale 1 [facility] -Salmeterol 0-16 Puff 3 ity of (ADVAIR 19:34: (three) [place] DISKUS) 31 times Medical 500-50 daily. Branch mcg/dose inhalation disk fluticasone 2018-09 Yes Use in [facility] vers propionate 0-16 each ity of 50 19:34: nostril [place] mcg/actuati 31 daily. Medica l on nasal Branch spray Fluticasone 2018-09 Yes 1{puff} Inhale 1 [facility] -Salmeterol 0-16 Puff 3 ity of (ADVAIR 19:34: (three) [place] DISKUS) 31 times Medical 500-50 daily. Branch mcg/dose inhalation disk fluticasone 2018-09 Yes Use in [facility] vers propionate 0-16 each ity of 50 19:34: nostril [place] mcg/actuati 31 daily. Medica l on nasal Branch spray Fluticasone 2018-09 Yes 1{puff} Inhale 1 [facility] -Salmeterol 0-16 Puff 3 ity of (ADVAIR 19:34: (three) [place] DISKUS) 31 times Medical 500-50 daily. Branch mcg/dose inhalation disk fluticasone 2018-09 Yes Use in [facility] vers propionate 0-16 each ity of 50 19:34: nostril [place] mcg/actuati 31 daily. Medica l on nasal Branch spray Fluticasone 2018-09 Yes 1{puff} Inhale 1 [facility] -Salmeterol 0-16 Puff 3 ity of (ADVAIR 19:34: (three) [place] DISKUS) 31 times Medical 500-50 daily. Branch mcg/dose inhalation disk fluticasone 2018-09 Yes Use in [facility] vers propionate 0-16 each ity of 50 19:34: nostril [place] mcg/actuati 31 daily. Medica l on nasal Branch spray Fluticasone 2018-09 Yes 1{puff} Inhale 1 [facility] -Salmeterol 0-16 Puff 3 ity of (ADVAIR 19:34: (three) [place] DISKUS) 31 times Medical 500-50 daily. Branch mcg/dose inhalation disk fluticasone 2018-09 Yes Use in [facility] vers propionate 0-16 each ity of 50 19:34: nostril [place] mcg/actuati 31 daily. Medica l on nasal Branch spray Fluticasone 2018-09 Yes 1{puff} Inhale 1 [facility] -Salmeterol 0-16 Puff 3 ity of (ADVAIR 19:34: (three) [place] DISKUS) 31 times Medical 500-50 daily. Branch mcg/dose inhalation disk fluticasone 2018-09 Yes Use in [facility] vers propionate 0-16 each ity of 50 19:34: nostril [place] mcg/actuati 31 daily. Medica l on nasal Branch spray Fluticasone 2018-09 Yes 1{puff} Inhale 1 [facility] -Salmeterol 0-16 Puff 3 ity of (ADVAIR 19:34: (three) [place] DISKUS) 31 times Medical 500-50 daily. Branch mcg/dose inhalation disk fluticasone 2018-09 Yes Use in [facility] vers propionate 0-16 each ity of 50 19:34: nostril [place] mcg/actuati 31 daily. Medica l on nasal Branch spray Fluticasone 2018-09 Yes 1{puff} Inhale 1 [facility] -Salmeterol 0-16 Puff 3 ity of (ADVAIR 19:34: (three) [place] DISKUS) 31 times Medical 500-50 daily. Branch mcg/dose inhalation disk fluticasone 2018-09 Yes Use in [facility] vers propionate 0-16 each ity of 50 19:34: nostril [place] mcg/actuati 31 daily. Medica l on nasal Branch spray Fluticasone 2018-09 Yes 1{puff} Inhale 1 [facility] -Salmeterol 0-16 Puff 3 ity of (ADVAIR 19:34: (three) [place] DISKUS) 31 times Medical 500-50 daily. Branch mcg/dose inhalation disk fluticasone 2018-09 Yes Use in [facility] vers propionate 0-16 each ity of 50 19:34: nostril [place] mcg/actuati 31 daily. Medica l on nasal Branch spray Fluticasone 2018-09 Yes 1{puff} Inhale 1 [facility] -Salmeterol 0-16 Puff 3 ity of (ADVAIR 19:34: (three) [place] DISKUS) 31 times Medical 500-50 daily. Branch mcg/dose inhalation disk fluticasone 2018-09 Yes Use in [facility] vers propionate 0-16 each ity of 50 19:34: nostril [place] mcg/actuati 31 daily. Medica l on nasal Branch spray Fluticasone 2018-09 Yes 1{puff} Inhale 1 [facility] -Salmeterol 0-16 Puff 3 ity of (ADVAIR 19:34: (three) [place] DISKUS) 31 times Medical 500-50 daily. Branch mcg/dose inhalation disk fluticasone 2018-09 Yes Use in [facility] vers propionate 0-16 each ity of 50 19:34: nostril [place] mcg/actuati 31 daily. Medica l on nasal Branch spray Fluticasone 2018-09 Yes 1{puff} Inhale 1 [facility] -Salmeterol 0-16 Puff 3 ity of (ADVAIR 19:34: (three) [place] DISKUS) 31 times Medical 500-50 daily. Branch mcg/dose inhalation disk fluticasone 2018-09 Yes Use in [facility] vers propionate 0-16 each ity of 50 19:34: nostril [place] mcg/actuati 31 daily. Medica l on nasal Branch spray Fluticasone 2018-09 Yes 1{puff} Inhale 1 [facility] -Salmeterol 0-16 Puff 3 ity of (ADVAIR 19:34: (three) [place] DISKUS) 31 times Medical 500-50 daily. Branch mcg/dose inhalation disk fluticasone 2018-09 Yes Use in [facility] vers propionate 0-16 each ity of 50 19:34: nostril [place] mcg/actuati 31 daily. Medica l on nasal Branch spray Fluticasone 2018-09 Yes 1{puff} Inhale 1 [facility] -Salmeterol 0-16 Puff 3 ity of (ADVAIR 19:34: (three) [place] DISKUS) 31 times Medical 500-50 daily. Branch mcg/dose inhalation disk fluticasone 2018-09 Yes Use in [facility] vers propionate 0-16 each ity of 50 19:34: nostril [place] mcg/actuati 31 daily. Medica l on nasal Branch spray Fluticasone 2018-09 Yes 1{puff} Inhale 1 [facility] -Salmeterol 0-16 Puff 3 ity of (ADVAIR 19:34: (three) [place] DISKUS) 31 times Medical 500-50 daily. Branch mcg/dose inhalation disk fluticasone 2018-09 Yes Use in [facility] vers propionate 0-16 each ity of 50 19:34: nostril [place] mcg/actuati 31 daily. Medica l on nasal Branch spray Fluticasone 2018-09 Yes 1{puff} Inhale 1 [facility] -Salmeterol 0-16 Puff 3 ity of (ADVAIR 19:34: (three) [place] DISKUS) 31 times Medical 500-50 daily. Branch mcg/dose inhalation disk fluticasone 2018-09 Yes Use in [facility] vers propionate 0-16 each ity of 50 19:34: nostril [place] mcg/actuati 31 daily. Medica l on nasal Branch spray Fluticasone 2018-09 Yes 1{puff} Inhale 1 [facility] -Salmeterol 0-16 Puff 3 ity of (ADVAIR 19:34: (three) [place] DISKUS) 31 times Medical 500-50 daily. Branch mcg/dose inhalation disk fluticasone 2018-09 Yes Use in [facility] vers propionate 0-16 each ity of 50 19:34: nostril [place] mcg/actuati 31 daily. Medica l on nasal Branch spray Fluticasone 2018-09 Yes 1{puff} Inhale 1 [facility] -Salmeterol 0-16 Puff 3 ity of (ADVAIR 19:34: (three) [place] DISKUS) 31 times Medical 500-50 daily. Branch mcg/dose inhalation disk isosorbide 2018-09 Yes 30mg Take 30 mg [facility] n[facility] mononitrate 0-16 by mouth it[facility] of 30 mg 24 hr 19:33: [place]. [place] tablet 47 [facility] methocarbam 2018-09 Yes 500mg Take 500 U nivers ol 0-16 mg by ity of (ROBAXIN) 19:33: mouth 3 [place] 500 mg 47 (three) Medical tablet times Branch daily. Dexlansopra 2018-09 Yes Take by [facility] 0-16 mouth 3 ity of (DEXILANT) 19:33: (three) [place] 60 mg 47 times [facility] capsule daily. [facility] hydrocodone 2018-09 Yes Take by [facility] /acetaminop 0-16 mouth 4 ity o f hen 19:33: (four) [place] (VICODIN ES 47 times Medical ORAL) daily. [facility] isosorbide 2018-09 Yes 30mg Take 30 mg [facility] nivers mononitrate 0-16 by mouth ity of 30 mg 24 hr 19:33: daily. [place] tablet 47 [facility] methocarbam 2018-09 Yes 500mg Take 500 U nivers ol 0-16 mg by ity of (ROBAXIN) 19:33: mouth 3 [place] 500 mg 47 (three) Medical tablet times Branch daily. Dexlansopra 2018-09 Yes Take by [facility] 0-16 mouth 3 ity of (DEXILANT) 19:33: (three) [place] 60 mg 47 times [facility] capsule daily. [facility] hydrocodone 2018-09 Yes Take by [facility] /acetaminop 0-16 mouth 4 ity o f hen 19:33: (four) [place] (VICODIN ES 47 times Medical ORAL) daily. Branch isosorbide 2018-09 Yes 30mg Take 30 mg [facility] nivers mononitrate 0-16 by mouth ity of 30 mg 24 hr 19:33: daily. [place] tablet 47 [facility] methocarbam 2018-09 Yes 500mg Take 500 U nivers ol 0-16 mg by ity of (ROBAXIN) 19:33: mouth 3 [place] 500 mg 47 (three) Medical tablet times Branch daily. Dexlansopra 2018-09 Yes Take by [facility] 0-16 mouth 3 ity of (DEXILANT) 19:33: (three) [place] 60 mg 47 times [facility] capsule daily. Branch hydrocodone 2018-09 Yes Take by [facility] /acetaminop 0-16 mouth 4 ity o f hen 19:33: (four) [place] (VICODIN ES 47 times Medical ORAL) daily. Branch isosorbide 2018-09 Yes 30mg Take 30 mg [facility] n[facility] mononitrate 0-16 by mouth ity of 30 mg 24 hr 19:33: daily. [place] tablet 47 [facility] methocarbam 2018-09 Yes 500mg Take 500 U nivers ol 0-16 mg by ity of (ROBAXIN) 19:33: mouth 3 [place] 500 mg 47 (three) Medical tablet times Branch daily. Dexlansopra 2018-09 Yes Take by [facility] zole 0-16 mouth 3 ity of (DEXILANT) 19:33: (three) [place] 60 mg 47 times [facility] capsule daily. Branch hydrocodone 2018-09 Yes Take by [facility] /acetaminop 0-16 mouth 4 ity o f hen 19:33: (four) [place] (VICODIN ES 47 times Medical ORAL) daily. Branch isosorbide 2018-09 Yes 30mg Take 30 mg [facility] nivers mononitrate 0-16 by mouth ity of 30 mg 24 hr 19:33: daily. [place] tablet 47 [facility] methocarbam 2018-09 Yes 500mg Take 500 U nivers ol 0-16 mg by ity of (ROBAXIN) 19:33: mouth 3 [place] 500 mg 47 (three) Medical tablet times Branch daily. Dexlansopra 2018-09 Yes Take by [facility] z[facility] 0-16 mouth 3 ity of (DEXILANT) 19:33: (three) [place] 60 [place] 47 times [facility] capsule daily. [facility] hydrocodone 2018-09 Yes Take by [facility] /acetaminop 0-16 mouth 4 ity o f hen 19:33: (four) [place] (VICODIN ES 47 times Medical ORAL) daily. Branch isosorbide 2018-09 Yes 30mg Take 30 mg [facility] nivers mononitrate 0-16 by mouth ity of 30 mg 24 hr 19:33: daily. [place] tablet 47 [facility] methocarbam 2018-09 Yes 500mg Take 500 U nivers ol 0-16 mg by ity of (ROBAXIN) 19:33: mouth 3 [place] 500 mg 47 (three) Medical tablet times Branch daily. Dexlansopra 2018-09 Yes Take by [facility] zole 0-16 mouth 3 ity of (DEXILANT) 19:33: (three) [place] 60 mg 47 times [facility] capsule daily. Branch hydrocodone 2018-09 Yes Take by [facility] /acetaminop 0-16 mouth 4 ity o f hen 19:33: (four) [place] (VICODIN ES 47 times Medical ORAL) daily. Branch isosorbide 2018-09 Yes 30mg Take 30 mg [facility] nivers mononitrate 0-16 by mouth ity of 30 mg 24 hr 19:33: daily. [place] tablet 47 [facility] methocarbam 2018-09 Yes 500mg Take 500 U nivers ol 0-16 mg by ity of (ROBAXIN) 19:33: mouth 3 [place] 500 mg 47 (three) Medical tablet times Branch daily. Dexlansopra 2018-09 Yes Take by [facility] zole 0-16 mouth 3 ity of (DEXILANT) 19:33: (three) [place] 60 mg 47 times [facility] capsule daily. Branch hydrocodone 2018-09 Yes Take by [facility] /acetaminop 0-16 mouth 4 ity o f hen 19:33: (four) [place] (VICODIN ES 47 times Medical ORAL) daily. Branch isosorbide 2018-09 Yes 30mg Take 30 mg [facility] nivers mononitrate 0-16 by mouth ity of 30 mg 24 hr 19:33: daily. [place] tablet 47 [facility] methocarbam 2018-09 Yes 500mg Take 500 U nivers ol 0-16 mg by ity of (ROBAXIN) 19:33: mouth 3 [place] 500 mg 47 (three) Medical tablet times Branch daily. Dexlansopra 2018-09 Yes Take by [facility] zole 0-16 mouth 3 ity of (DEXILANT) 19:33: (three) [place] 60 mg 47 times [facility] capsule daily. Branch hydrocodone 2018-09 Yes Take by [facility] /acetaminop 0-16 mouth 4 ity o f hen 19:33: (four) [place] (VICODIN ES 47 times Medical ORAL) daily. Branch isosorbide 2018-09 Yes 30mg Take 30 mg U nivers mononitrate 0-16 by mouth ity of 30 mg 24 hr 19:33: daily. [place] tablet 47 [facility] methocarbam 2018-09 Yes 500mg Take 500 U nivers ol 0-16 mg by ity of (ROBAXIN) 19:33: mouth 3 [place] 500 mg 47 (three) Medical tablet times Branch daily. Dexlansopra 2018-09 Yes Take by [facility] zole 0-16 mouth 3 ity of (DEXILANT) 19:33: (three) [place] 60 mg 47 times [facility] capsule daily. Branch hydrocodone 2018-09 Yes Take by [facility] /acetaminop 0-16 mouth 4 ity o f hen 19:33: (four) [place] (VICODIN ES 47 times Medical ORAL) daily. Branch isosorbide 2018-09 Yes 30mg Take 30 mg [facility] nivers mononitrate 0-16 by mouth ity of 30 mg 24 hr 19:33: daily. [place] tablet 47 [facility] methocarbam 2018-09 Yes 500mg Take 500 U nivers ol 0-16 mg by ity of (ROBAXIN) 19:33: mouth 3 [place] 500 mg 47 (three) Medical tablet times Branch daily. Dexlansopra 2018-09 Yes Take by [facility] zole 0-16 mouth 3 ity of (DEXILANT) 19:33: (three) [place] 60 mg 47 times [facility] capsule daily. Branch hydrocodone 2018-09 Yes Take by [facility] /acetaminop 0-16 mouth 4 ity o f hen 19:33: (four) [place] (VICODIN ES 47 times Medical ORAL) daily. Branch isosorbide 2018-09 Yes 30mg Take 30 mg U nivers mononitrate 0-16 by mouth ity of 30 mg 24 hr 19:33: daily. [place] tablet 47 [facility] methocarbam 2018-09 Yes 500mg Take 500 U nivers ol 0-16 mg by ity of (ROBAXIN) 19:33: mouth 3 [place] 500 mg 47 (three) Medical tablet times Branch daily. Dexlansopra 2018-09 Yes Take by [facility] zole 0-16 mouth 3 ity of (DEXILANT) 19:33: (three) [place] 60 mg 47 times [facility] capsule daily. Branch hydrocodone 2018-09 Yes Take by [facility] /acetaminop 0-16 mouth 4 ity o f hen 19:33: (four) [place] (VICODIN ES 47 times Medical ORAL) daily. Branch isosorbide 2018-09 Yes 30mg Take 30 mg [facility] nivers mononitrate 0-16 by mouth ity of 30 mg 24 hr 19:33: daily. [place] tablet 47 [facility] methocarbam 2018-09 Yes 500mg Take 500 U nivers ol 0-16 mg by ity of (ROBAXIN) 19:33: mouth 3 [place] 500 mg 47 (three) Medical tablet times Branch daily. Dexlansopra 2018-09 Yes Take by [facility] zole 0-16 mouth 3 ity of (DEXILANT) 19:33: (three) [place] 60 mg 47 times [facility] capsule daily. Branch hydrocodone 2018-09 Yes Take by [facility] /acetaminop 0-16 mouth 4 ity o f hen 19:33: (four) [place] (VICODIN ES 47 times Medical ORAL) daily. Branch isosorbide 2018-09 Yes 30mg Take 30 mg [facility] nivers mononitrate 0-16 by mouth ity of 30 mg 24 hr 19:33: daily. [place] tablet 47 [facility] methocarbam 2018-09 Yes 500mg Take 500 U nivers ol 0-16 mg by ity of (ROBAXIN) 19:33: mouth 3 [place] 500 mg 47 (three) Medical tablet times Branch daily. Dexlansopra 2018-09 Yes Take by [facility] zole 0-16 mouth 3 ity of (DEXILANT) 19:33: (three) [place] 60 mg 47 times [facility] capsule daily. Branch hydrocodone 2018-09 Yes Take by [facility] /acetaminop 0-16 mouth 4 ity o f hen 19:33: (four) [place] (VICODIN ES 47 times Medical ORAL) daily. Branch isosorbide 2018-09 Yes 30mg Take 30 mg [facility] nivers mononitrate 0-16 by mouth ity of 30 mg 24 hr 19:33: daily. [place] tablet 47 [facility] methocarbam 2018-09 Yes 500mg Take 500 U nivers ol 0-16 mg by ity of (ROBAXIN) 19:33: mouth 3 [place] 500 mg 47 (three) Medical tablet times Branch daily. Dexlansopra 2018-09 Yes Take by [facility] zole 0-16 mouth 3 ity of (DEXILANT) 19:33: (three) [place] 60 mg 47 times [facility] capsule daily. Branch hydrocodone 2018-09 Yes Take by [facility] /acetaminop 0-16 mouth 4 ity o f hen 19:33: (four) [place] (VICODIN ES 47 times Medical ORAL) daily. Branch isosorbide 2018-09 Yes 30mg Take 30 mg [facility] nivers mononitrate 0-16 by mouth ity of 30 mg 24 hr 19:33: daily. [place] tablet 47 [facility] methocarbam 2018-09 Yes 500mg Take 500 U nivers ol 0-16 mg by ity of (ROBAXIN) 19:33: mouth 3 [place] 500 mg 47 (three) Medical tablet times Branch daily. Dexlansopra 2018-09 Yes Take by [facility] zole 0-16 mouth 3 ity of (DEXILANT) 19:33: (three) [place] 60 mg 47 times Medical capsule daily. Branch hydrocodone 2018-09 Yes Take by [facility] /acetaminop 0-16 mouth 4 ity o f hen 19:33: (four) [place] (VICODIN ES 47 times Medical ORAL) daily. Branch isosorbide 2018-09 Yes 30mg Take 30 mg [facility] nivers mononitrate 0-16 by mouth ity of 30 mg 24 hr 19:33: daily. [place] tablet 47 [facility] methocarbam 2018-09 Yes 500mg Take 500 U nivers ol 0-16 mg by ity of (ROBAXIN) 19:33: mouth 3 [place] 500 mg 47 (three) Medical tablet times Branch daily. Dexlansopra 2018-09 Yes Take by [facility] zole 0-16 mouth 3 ity of (DEXILANT) 19:33: (three) [place] 60 mg 47 times Medical capsule daily. Branch hydrocodone 2018-09 Yes Take by [facility] /acetaminop 0-16 mouth 4 ity o f hen 19:33: (four) [place] (VICODIN ES 47 times Medical ORAL) daily. Branch isosorbide 2018-09 Yes 30mg Take 30 mg U nivers mononitrate 0-16 by mouth ity of 30 mg 24 hr 19:33: daily. [place] tablet 47 [facility] methocarbam 2018-09 Yes 500mg Take 500 U nivers ol 0-16 mg by ity of (ROBAXIN) 19:33: mouth 3 [place] 500 mg 47 (three) Medical tablet times Branch daily. Dexlansopra 2018-09 Yes Take by [facility] zole 0-16 mouth 3 ity of (DEXILANT) 19:33: (three) [place] 60 mg 47 times Medical capsule daily. Branch hydrocodone 2018-09 Yes Take by [facility] /acetaminop 0-16 mouth 4 ity o f hen 19:33: (four) [place] (VICODIN ES 47 times Medical ORAL) daily. Branch isosorbide 2018-09 Yes 30mg Take 30 mg U nivers mononitrate 0-16 by mouth ity of 30 mg 24 hr 19:33: daily. [place] tablet 47 [facility] methocarbam 2018-09 Yes 500mg Take 500 U nivers ol 0-16 mg by ity of (ROBAXIN) 19:33: mouth 3 [place] 500 mg 47 (three) Medical tablet times Branch daily. Dexlansopra 2018-09 Yes Take by [facility] zole 0-16 mouth 3 ity of (DEXILANT) 19:33: (three) [place] 60 mg 47 times Medical capsule daily. Branch hydrocodone 2018-09 Yes Take by [facility] /acetaminop 0-16 mouth 4 ity o f hen 19:33: (four) [place] (VICODIN ES 47 times Medical ORAL) daily. Branch isosorbide 2018-09 Yes 30mg Take 30 mg U nivers mononitrate 0-16 by mouth ity of 30 mg 24 hr 19:33: daily. [place] tablet 47 [facility] methocarbam 2018-09 Yes 500mg Take 500 U nivers ol 0-16 mg by ity of (ROBAXIN) 19:33: mouth 3 [place] 500 mg 47 (three) Medical tablet times Branch daily. Dexlansopra 2018-09 Yes Take by [facility] zole 0-16 mouth 3 ity of (DEXILANT) 19:33: (three) [place] 60 mg 47 times Medical capsule daily. Branch hydrocodone 2018-09 Yes Take by [facility] /acetaminop 0-16 mouth 4 ity o f hen 19:33: (four) [place] (VICODIN ES 47 times Medical ORAL) daily. Branch isosorbide 2019-1 Yes 30mg Take 30 mg U nivers mononitrate 0-16 by mouth ity of 30 mg 24 hr 19:33: daily. [place] tablet 47 [facility] methocarbam 2018-09 Yes 500mg Take 500 U nivers ol 0-16 mg by ity of (ROBAXIN) 19:33: mouth 3 [place] 500 mg 47 (three) Medical tablet times Branch daily. Dexlansopra 2018-09 Yes Take by [facility] zole 0-16 mouth 3 ity of (DEXILANT) 19:33: (three) [place] 60 mg 47 times Medical capsule daily. Branch hydrocodone 2018-09 Yes Take by [facility] /acetaminop 0-16 mouth 4 ity o f hen 19:33: (four) [place] (VICODIN ES 47 times Medical ORAL) daily. Branch isosorbide 2018-09 Yes 30mg Take 30 mg U nivers mononitrate 0-16 by mouth ity of 30 mg 24 hr 19:33: daily. [place] tablet 47 [facility] methocarbam 2018-09 Yes 500mg Take 500 U nivers ol 0-16 mg by ity of (ROBAXIN) 19:33: mouth 3 [place] 500 mg 47 (three) Medical tablet times Branch daily. Dexlansopra 2018-09 Yes Take by [facility] zole 0-16 mouth 3 ity of (DEXILANT) 19:33: (three) [place] 60 mg 47 times Medical capsule daily. Branch hydrocodone 2018-09 Yes Take by [facility] /acetaminop 0-16 mouth 4 ity o f hen 19:33: (four) [place] (VICODIN ES 47 times Medical ORAL) daily. Branch isosorbide 2018-09 Yes 30mg Take 30 mg U nivers mononitrate 0-16 by mouth ity of 30 mg 24 hr 19:33: daily. [place] tablet 47 [facility] methocarbam 2018-09 Yes 500mg Take 500 U nivers ol 0-16 mg by ity of (ROBAXIN) 19:33: mouth 3 [place] 500 mg 47 (three) Medical tablet times Branch daily. Dexlansopra 2018-09 Yes Take by [facility] z[facility] 0-16 mouth 3 ity of (DEXILANT) 19:33: (three) [place] 60 mg 47 times Medical capsule daily. Branch hydrocodone 2018-09 Yes Take by [facility] /acetaminop 0-16 mouth 4 ity o f hen 19:33: (four) [place] (VICODIN ES 47 times Medical ORAL) daily. Branch isosorbide 2018-09 Yes 30mg Take 30 mg U nivers mononitrate 0-16 by mouth ity of 30 mg 24 hr 19:33: daily. [place] tablet 47 [facility] methocarbam 2018-09 Yes 500mg Take 500 U nivers ol 0-16 mg by ity of (ROBAXIN) 19:33: mouth 3 [place] 500 mg 47 (three) Medical tablet times Branch daily. Dexlansopra 2018-09 Yes Take by [facility] zole 0-16 mouth 3 ity of (DEXILANT) 19:33: (three) [place] 60 mg 47 times Medical capsule daily. Branch hydrocodone 2018-09 Yes Take by [facility] /acetaminop 0-16 mouth 4 ity o f hen 19:33: (four) [place] (VICODIN ES 47 times Medical ORAL) daily. Branch isosorbide 2018-09 Yes 30mg Take 30 mg U nivers mononitrate 0-16 by mouth ity of 30 mg 24 hr 19:33: daily. [place] tablet 47 [facility] methocarbam 2018-09 Yes 500mg Take 500 U nivers ol 0-16 mg by ity of (ROBAXIN) 19:33: mouth 3 [place] 500 mg 47 (three) Medical tablet times Branch daily. Dexlansopra 2018-09 Yes Take by [facility] zole 0-16 mouth 3 ity of (DEXILANT) 19:33: (three) [place] 60 mg 47 times Medical capsule daily. Branch hydrocodone 2018-09 Yes Take by [facility] /acetaminop 0-16 mouth 4 ity o f hen 19:33: (four) [place] (VICODIN ES 47 times Medical ORAL) daily. Branch isosorbide 2018-09 Yes 30mg Take 30 mg U nivers mononitrate 0-16 by mouth ity of 30 mg 24 hr 19:33: daily. [place] tablet 47 [facility] methocarbam 2018-09 Yes 500mg Take 500 U nivers ol 0-16 mg by ity of (ROBAXIN) 19:33: mouth 3 [place] 500 mg 47 (three) Medical tablet times Branch daily. Dexlansopra 2019-1 Yes Take by [facility] zole 0-16 mouth 3 ity of (DEXILANT) 19:33: (three) [place] 60 mg 47 times Medical capsule daily. Branch hydrocodone 2018-09 Yes Take by [facility] /acetaminop 0-16 mouth 4 ity o f hen 19:33: (four) [place] (VICODIN ES 47 times Medical ORAL) daily. Branch isosorbide 2018-09 Yes 30mg Take 30 mg U nivers mononitrate 0-16 by mouth ity of 30 mg 24 hr 19:33: daily. [place] tablet 47 [facility] methocarbam 2018-09 Yes 500mg Take 500 U nivers ol 0-16 mg by ity of (ROBAXIN) 19:33: mouth 3 [place] 500 mg 47 (three) Medical tablet times Branch daily. Dexlansopra 2018-09 Yes Take by [facility] z[facility] 0-16 mouth 3 ity of (DEXILANT) 19:33: (three) [place] 60 mg 47 times Medical capsule daily. Branch hydrocodone 2018-09 Yes Take by [facility] /acetaminop 0-16 mouth 4 ity o f hen 19:33: (four) [place] (VICODIN ES 47 times Medical ORAL) daily. Branch enalapril 2018-09 Yes Take by [facility] 10 mg 0-16 mouth ity of tablet 19:33: daily. [place] [address] Medical Branch chlordiazeP 2018-09 Yes 10mg Take 10 mg [facility] OXIDE 10 mg 0-16 by mouth 3 it y of capsule 19:33: (three) [place] 46 times Medical daily. Branch enalapril 2018-09 Yes Take by [facility] 10 mg 0-16 mouth ity of tablet 19:33: daily. [place] [address] Medical Branch chlordiazeP 2018-09 Yes 10mg Take 10 mg [facility] OXIDE 10 mg 0-16 by mouth 3 it y of capsule 19:33: (three) [place] 46 times Medical daily. Branch enalapril 2018-09 Yes Take by [facility] 10 mg 0-16 mouth ity of tablet 19:33: daily. [place] [address] Medical Branch chlordiazeP 2018-09 Yes 10mg Take 10 mg [facility] OXIDE 10 mg 0-16 by mouth 3 it y of capsule 19:33: (three) [place] 46 times Medical daily. Branch enalapril 2018-09 Yes Take by [facility] 10 mg 0-16 mouth ity of tablet 19:33: daily. [address] chlordiazeP 2018-09 Yes 10mg Take 10 mg [facility] OXIDE 10 mg 0-16 by mouth 3 it y of capsule 19:33: (three) [place] 46 times Medical daily. [place] enalapril 2018-09 Yes Take by [facility] 10 mg 0-16 mouth ity of tablet 19:33: daily. [address] chlordiazeP 2018-09 Yes 10mg Take 10 mg [facility] OXIDE 10 mg 0-16 by mouth 3 it y of capsule 19:33: (three) [place] 46 times Medical daily. [place] enalapril 2018-09 Yes Take by [facility] 10 mg 0-16 mouth ity of tablet 19:33: daily. [address] chlordiazeP 2018-09 Yes 10mg Take 10 mg [facility] OXIDE 10 mg 0-16 by mouth 3 it y of capsule 19:33: (three) [place] 46 times Medical daily. [place] enalapril 2018-09 Yes Take by [facility] 10 mg 0-16 mouth ity of tablet 19:33: daily. [address] chlordiazeP 2018-09 Yes 10mg Take 10 mg [facility] OXIDE 10 mg 0-16 by mouth 3 it y of capsule 19:33: (three) [place] 46 times Medical daily. [place] enalapril 2018-09 Yes Take by [facility] 10 mg 0-16 mouth ity of tablet 19:33: daily. [address] chlordiazeP 2018-09 Yes 10mg Take 10 mg [facility] OXIDE 10 mg 0-16 by mouth 3 it y of capsule 19:33: (three) [place] 46 times Medical daily. Branch chlordiazeP 2018-09 Yes 10mg Take 10 mg [facility] OXIDE 10 mg 0-16 by mouth 3 it y of capsule 19:33: (three) [place] 46 times Medical daily. Branch chlordiazeP 2018-09 Yes 10mg Take 10 mg [facility] OXIDE 10 mg 0-16 by mouth 3 it y of capsule 19:33: (three) [place] 46 times Medical daily. Branch chlordiazeP 2018-09 Yes 10mg Take 10 mg [facility] OXIDE 10 mg 0-16 by mouth 3 it y of capsule 19:33: (three) [place] 46 times Medical daily. Branch chlordiazeP 2018-09 Yes 10mg Take 10 mg [facility] OXIDE 10 mg 0-16 by mouth 3 it y of capsule 19:33: (three) [place] 46 times Medical daily. Branch chlordiazeP 2018-09 Yes 10mg Take 10 mg [facility] OXIDE 10 mg 0-16 by mouth 3 it y of capsule 19:33: (three) [place] 46 times Medical daily. Branch chlordiazeP 2018- Yes 10mg Take 10 mg [facility] OXIDE 10 mg 0-16 by mouth 3 it y of capsule 19:33: (three) [place] 46 times Medical daily. Branch chlordiazeP 2018- Yes 10mg Take 10 mg [facility] OXIDE 10 mg 0-16 by mouth 3 it y of capsule 19:33: (three) [place] 46 times Medical daily. Branch chlordiazeP 2018- Yes 10mg Take 10 mg [facility] OXIDE 10 mg 0-16 by mouth 3 it y of capsule 19:33: (three) [place] 46 times Medical daily. Branch chlordiazeP 2018- Yes 10mg Take 10 mg [facility] OXIDE 10 mg 0-16 by mouth 3 it y of capsule 19:33: (three) [place] 46 times Medical daily. Branch chlordiazeP 2018- Yes 10mg Take 10 mg [facility] OXIDE 10 mg 0-16 by mouth 3 it y of capsule 19:33: (three) [place] 46 times Medical daily. Branch chlordiazeP 2018- Yes 10mg Take 10 mg Univers OXIDE 10 mg 0-16 by mouth 3 it y of capsule 19:33: (three) [place] 46 times Medical daily. Branch chlordiazeP 2018- Yes 10mg Take 10 mg Univers OXIDE 10 mg 0-16 by mouth 3 it y of capsule 19:33: (three) [place] 46 times Medical daily. Branch chlordiazeP 2018- Yes 10mg Take 10 mg Univers OXIDE 10 mg 0-16 by mouth 3 it y of capsule 19:33: (three) [place] 46 times Medical daily. Branch chlordiazeP 2018- Yes 10mg Take 10 mg Univers OXIDE 10 mg 0-16 by mouth 3 it y of capsule 19:33: (three) [place] 46 times Medical daily. Branch chlordiazeP 2018- Yes 10mg Take 10 mg Univers OXIDE 10 mg 0-16 by mouth 3 it y of capsule 19:33: (three) [place] 46 times Medical daily. Branch chlordiazeP 2018- Yes 10mg Take 10 mg Univers OXIDE 10 mg 0-16 by mouth 3 it y of capsule 19:33: (three) [place] 46 times Medical daily. Branch chlordiazeP 2018- Yes 10mg Take 10 mg Univers OXIDE 10 mg 0-16 by mouth 3 it y of capsule 19:33: (three) [place] 46 times Medical daily. Branch chlordiazeP 2019-1 Yes 10mg Take 10 mg Univers OXIDE 10 mg 0-16 by mouth 3 it y of capsule 19:33: (three) [place] 46 times Medical daily. Branch Vital Signs Vital Name Observation Time Observation Value Comments Source Systolic blood 2021-05-19 19:59:00 116 mm[Hg] Univer [facility]ity [facility] Diastolic blood 2021-05-19 19:59:00 82 mm[Hg] Unive rsity [facility] Heart rate 2021-05-19 19:59:00 80 /min [facility]i [facility] Body temperature 2021-05-19 19:59:00 36.06 Yoly [facility] ersity of [facility] Respiratory rate 2021-05-19 19:59:00 18 /min Univ ersity [facility] Body height 2021-05-19 19:59:00 182.9 cm Universi ty [facility] Body weight 2021-05-19 19:59:00 88.179 kg Universi ty [facility] BMI 2021-05-19 19:59:00 26.37 kg/m2 Universi ty [facility] Oxygen saturation in 2021-05-19 19:59:00 99 /min University of Arterial blood by [facility] Pulse oximetry Branch Heart rate 2021-03-14 20:40:00 71 /min Universi ty [facility] Respiratory rate 2021-03-14 20:40:00 20 /min [facility] ersity [facility] Oxygen saturation in 2021-03-14 20:40:00 97 /min University of Arterial blood by [facility] Pulse oximetry Branch Systolic blood 2021-03-14 20:30:00 109 mm[Hg] Univer [facility] Diastolic blood 2021-03-14 20:30:00 71 mm[Hg] Unive [facility] Body temperature 2021-03-14 18:27:00 36.22 Yoly Univ ersity [facility] Body weight 2021-03-14 18:27:00 88.451 kg [facility]i [facility] BMI 2021-03-14 18:27:00 26.45 kg/m2 [facility] [place] [facility] Systolic blood 2020-07-19 16:03:00 147 mm[Hg] Univer sity of pressure [place] [facility] Diastolic blood 2020-07-19 16:03:00 103 mm[Hg] Unive rsity of [facility] [place] [facility] Heart rate 2020-07-19 16:03:00 79 /min [facility]i ty [facility] [place] [facility] Respiratory rate 2020-07-19 15:58:00 19 /min Univ ersity [facility] [place] [facility] Body height 2020-07-19 15:58:00 182.9 cm [facility]i [facility] [place] [facility] Body weight 2020-07-19 15:58:00 92.942 kg [facility] [place] [facility] BMI 2020-07-19 15:58:00 27.79 kg/m2 [facility] [place] [facility] Oxygen saturation in 2020-07-19 15:58:00 96 /min University of Arterial blood by [facility] Pulse oximetry Branch Systolic blood 2020-06-01 19:05:00 145 mm[Hg] Univer sity of [facility] [place] [facility] Diastolic blood 2020-06-01 19:05:00 99 mm[Hg] Unive rsity of [facility] [place] [facility] Heart rate 2020-06-01 19:05:00 86 /min [facility]i [facility] [place] [facility] Body height 2020-06-01 19:05:00 182.9 cm [facility] [place] [facility] Body weight 2020-06-01 19:05:00 90.583 kg [facility] [place] [facility] BMI 2020-06-01 19:05:00 27.08 kg/m2 [facility] [place] [facility] Oxygen saturation in 2020-06-01 19:05:00 99 /min University of Arterial blood by [facility] Pulse oximetry Branch Systolic blood 2020-03-09 15:33:00 149 mm[Hg] Univer sity of [facility] [place] [facility] Diastolic blood 2020-03-09 15:33:00 97 mm[Hg] Unive rsity of [facility] [place] [facility] Heart rate 2020-03-09 15:33:00 75 /min [facility]i [facility] [place] [facility] Body height 2020-03-09 15:33:00 182.9 cm [facility] [place] [facility] Body weight 2020-03-09 15:33:00 90.266 kg [facility] [place] [facility] BMI 2020-03-09 15:33:00 26.99 kg/m2 [facility] [place] [facility] [place] Procedures Procedure Date / Time Performing Clinician Source Performed US ABDOMEN LIMITED 2021-08-04 22:00:00 Leela Clark [facility] ASSIGNMENT OF BENEFITS 2021-08-04 20:51:34 Doctor Lexi, Ma[facility] Name Medical Branch EXTERNAL PROVIDER RECORDS 2021-05-25 05:01:00 Doctor Elliott [facility] XR CHEST 1 VW 2021-03-14 18:43:52 Addison Ramirez [facility] CBC WITH DIFF 2021-03-14 18:36:00 James Addison [facility] COVID-19 (ID NOW RAPID 2021-03-14 18:36:00 Addison Ramirez [facility] TESTING) Medical Branch LIPASE 2021-03-14 18:35:00 Addison Ramirez [facility] TROPONIN I 2021-03-14 18:35:00 Addison Ramirez [facility] HEPATIC FUNCTION PANEL 2021-03-14 18:35:00 Addison Ramirez [facility] ([id number]) (ALB,T.PRO,BILI Medical Branch T,BU/BC,ALT,AST,ALK PHOS) BASIC METABOLIC PANEL 2021-03-14 18:35:00 Addison Ramirez [facility] (NA, K, CL, CO2, GLUCOSE, Medica l Branch BUN, CREATININE, CA) PROTHROMBIN TIME / INR 2021-03-14 18:35:00 Addison Ramirez [facility] ACTIVATED PARTIAL 2021-03-14 18:35:00 Addison Ramirez [facility] THRMPLAS CHRISTIANO [facility] MEDICATION CORRESPONDENCE 2021-01-13 05:01:00 Doctor Elliott [facility] Medical [place] MEDICATION CORRESPONDENCE 2021-01-13 05:01:00 Doctor Elliott [facility] [place] CONSENT/REFUSAL FOR 2020-07-19 15:38:32 [facility] [place] [facility] DIAGNOSIS AND TREATMENT [facility] [place] AUTHORIZATION TO RELEASE 2020-06-01 05:01:00 Doctor Elliott [facility] PHI TO [facility] Name Medical [place] EXTERNAL PROVIDER - ADC 2020-03-26 05:01:00 Doctor Unassigned, U [facility] CARDIOLOGY [place] [facility] Plan of Care Planned Activity Planned Date Details Comments Source Future Scheduled 2021-07-19 Depression screening [facility] Test 00:00:00 (procedure) [code = Medical Branch 417631903] Future Scheduled 2021-05-25 INFLUENZA VACCINE Univer [facility] Test 00:00:00 (Season Ended) [code = Medic al Branch INFLUENZA VACCINE (Season Ended)] Future Scheduled 2016 Screening for [facility] Test 00:00:00 malignant neoplasm of Medica l Branch lung (procedure) [code = 622125658] Future Scheduled 2011 Screening for occult [facility] Test 00:00:00 blood in feces [facility] (procedure) [code = 145569522] Future Scheduled 2011 Stool DNA-based [facility] Test 00:00:00 colorectal cancer Medical Br anch screening (procedure) [code = 531806759123878] Future Scheduled 2011 Flexible fiberoptic [facility] 00[facility]00 sigmoidoscopy Medical Branch (procedure) [code = 79448979] Future Scheduled 2011 Screening for [facility] Test 00:00:00 malignant neoplasm of Medica l Branch colon (procedure) [code = 142499554] Future Scheduled 2011 Screening for [facility] Test 00:00:00 malignant neoplasm of Medica l Branch colon (procedure) [code = 664665066] Future Scheduled 2011 Zoster Recombinant Unive [facility] [place] [facility] Test 00:00:00 Vaccine (SHINGRIX) (1 Medica l Branch of 2) [code = Zoster Recombinant Vaccine (SHINGRIX) (1 of 2)] Future Scheduled 1980 [facility]Tdap,and Td [facility] Vaccines (1 - Tdap) Medical Branch [code = DTaP,Tdap,and Td Vaccines (1 - Tdap)] Future Scheduled 1967 P[facility]UMOCOCCAL 0-64 [facility]00 YEARS COMBINED SERIES Medica l Branch (1 of 1 - PPSV23) [code = PNEUMOCOCCAL 0-64 YEARS COMBINED SERIES (1 of 1 - PPSV23)] Future Scheduled 1961 Hepatitis C screening Un [facility] Test 00:00:00 (procedure) [code = Medical Branch 309125504] Encounters Start End Encounter Admission Attending Care Care Encounter Source Date/Time Date/Time Type Type Clinicians Facility Department ID 2021-07-25 Emergency [facility] [id number] Univers 02:36:54 ity of [facility] 2021-08-10 2021-08-10 Telephone [facility] 1.2.840.114 [id number] Univers 00:00:00 00:00:00 Nando MALHOTRASTEVEN [id number] i ty [place] [phone] Il dical NAL [address] [place] [address] 2021-08-04 2021-08-04 Outpatient R [facility] [id number] Univers 14:54:13 23:59:00 NANDO itjoshua of [facility] 2021-08-04 2021-08-04 [facility] 1.2.840.114 [id number] Univers 14:54:13 23:59:00 Encounter Nando EDVIN 350.1.13.10 it[place] [phone] [facility] 806 [place] 2021-08-04 2021-08-04 Outpatient R [facility] [id number] Univers 00:00:00 00:00:00 NANDO [id number] ity [facility] 2021-08-04 2021-08-04 Orders Doctor KIERA 1.2.840.114 [id number] Univers 00:00:00 00:00:00 Only Unassigned, CALE 350.1.13.10 ity of [place] [facility] 4.2.7.2.686 Darío as [phone] [facility] 009 [place] 2021-07-29 2021-07-29 Telephone [facility] 1.2.840.114 [id number] Univers 00:00:00 00:00:00 Nando EDVIN 350.1.13.10 [place] [phone] Il dical NAL 188 [facility] 2021-06-06 2021-06-06 Outpatient R KONRAD [facility] [id number] Univers 10:15:00 10:15:00 NANDO [id number] ity [facility] 2021-06-06 2021-06-06 Outpatient R KONRAD [facility] [id number] Univers 10:15:00 10:15:00 [facility] 2021-05-27 2021-05-27 Outpatient R KONRAD [facility] [id number] Univers 00:00:00 00:00:00 NANDO [id number] [facility] 2021-05-27 2021-05-27 [facility] [id number] Univers 00:00:00 00:00:00 NANDO [facility] 2021-05-25 2021-05-25 Orders Doctor KIERA 1.2.840.114 [id number] Univers 00:00:00 00:00:00 Only Unassigned, CALE 350.1.13.10 ity of [place] [facility] 4.2.7.2.686 [place] as [phone] [address] 2021-05-19 2021-05-19 [facility] 1.2.079.324 [id number] Univers 14:42:06 16:05:39 Visit Nando Edvin 350.1.13.10 i ty [place] [phone] Il dical nal [address] [place] [address] 2021-05-19 2021-05-19 Outpatient R KONRAD [facility] [id number]-20 Univers 14:45:00 14:45:00 NANDO [id number] [facility] 2021-05-19 2021-05-19 Outpatient R KONRAD [facility] [id number] Univers 14:30:00 14:30:00 NANDO [facility] 2021-05-17 2021-05-17 [facility]phone [facility] 1.2.773.013 [id number] Univers 00:00:00 00:00:00 Blair dEvin 350.1.13.10 ity [place] [phone] Il dical nal 059 [facility] 2021-03-31 2021-03-31 Telephone [facility] 1.2.234.211 [id number] Univers 00:00:00 00:00:00 Vandanaheedtimo [place] 350.1.13.10 ity [place] [phone] Il dical nal 9 [facility] 2021-03-14 2021-03-14 Emergency RamirezAddison [facility] 1.2.840. 114 [id number] Univers 13:23:00 16:01:00 Eleuterio Wang 3 50.1.13.10 ity [place] [phone] [facility] 084 Branch 2021-01-17 2021-01-17 [facility] [id number] Univers 14:00:00 14:00:00 BLAIR [id number] ity o f [facility] 2021-01-17 2021-01-17 [facility] [id number] Univers 14:00:00 14:00:00 BLAIR ity o f [facility] 2021-01-13 2021-01-13 Orders Doctor QURESHI 1.2.840.114 [id number] Univers 00:00:00 00:00:00 Only Unassigned, CALE 350.1.13.10 [facility] 4.2.7.2.686 [place]ío as [phone] [facility] 009 Branch 2020-08-02 2020-08-02 Outpatient [facility] [id number] Univers 08:00:00 08:00:00 ity of [facility] 2020-08-02 2020-08-02 Outpatient R SOLOMON [facility] [id number] Univers 08:00:00 08:00:00 VALENTE ity [facility] 2020-07-19 2020-07-19 Office [facility] 1.2.840.114 [id number] Univers 10:39:13 11:26:38 Visit Blair Valdez 350.1.13.10 [place]y [place] [phone] [place] [id number] [facility] 2020-07-19 2020-07-19 Outpatient R BJ, [facility] [id number] Univers 11:00:00 11:00:00 BLAIR [id number] ity o f [facility] 2020-07-19 2020-07-19 Outpatient R BJ, [facility] [id number] Univers 11:00:00 11:00:00 BLAIR kingy o f [facility] 2020-07-19 2020-07-19 Orders Doctor KIERA 1.2.840.114 [id number] Univers 00:00:00 00:00:00 Only Unassigned, CALE 350.1.13.10 ity of [place] [facility] 4.2.7.2.686 [place] as [phone] [facility] 009 [place] 2020-07-15 2020-07-15 Telephone [facility] [id number] Univers 00:00:00 00:00:00 Blair Valdez 350.1.13.10 [place] [phone] [address] 2020-07-15 2020-07-15 Telephone Argenis Gaines 1.2.471.400 [id number] Univers 00:00:00 00:00:00 Valente Cale 350.1.13.10 it y of [facility] 4.2.7.2.686 [place] as [phone] [facility] 039 [place] 2020-07-02 2020-07-02 Telephone [facility] 1.2.220.897 [id number] Univers 00:00:00 00:00:00 Valente Edvin 350.1.13.10 i ty [place] [phone] [address] 2020-06-01 2020-06-01 Office [facility] 1.2.840.114 [id number] Univers 13:36:20 14:19:54 Visit Valente [place] 350.1.13.10 i ty [place] [phone] [address] 2020-06-01 2020-06-01 [facility] [id number] Univers 13:40:00 13:40:00 VALENTE [id number] ity [facility] 2020-06-01 2020-06-01 Outpatient [facility] [id number] Univers 13:40:00 13:40:00 VALENTE ity [facility] 2020-06-01 2020-06-01 Telephone [facility] 1.2.558.194 [id number] Univers 00:00:00 00:00:00 Valente [place] 350.1.13.10 i ty [place] [phone] [address] 2020-06-01 2020-06-01 Orders Doctor KIERA 1.2.840.114 [id number] Univers 00:00:00 00:00:00 Only Unassigned, CALE 350.1.13.10 ity of [place] [facility] 4.2.7.2.686 Darío as [phone] [address] 2020-05-14 2020-05-14 Outpatient R [facility] [id number] Univers 10:45:00 10:45:00 EILEEN [id number] christiney o f [facility] 2020-05-14 2020-05-14 Outpatient R [facility] [id number] Univers 10:45:00 10:45:00 EILEEN kingy o f [facility] 2020-05-13 2020-05-13 Telephone [facility] 1.2.830.211 [id number] Univers 00:00:00 00:00:00 Blair Valdez 350.1.13.10 [place] [phone] [address] 2020-05-09 2020-05-09 [facility] 1.2.353.855 [id number] Univers 00:00:00 00:00:00 Blair Valdez 350.1.13.10 it[place] [phone] [place] 135049 [facility] 2020-04-23 2020-04-23 Telephone [facility] [id number] Univers 00:00:00 00:00:00 Blair Valdez 350.1.13.10 ity [place] [phone] [address] 2020-04-09 2020-04-09 Outpatient R [facility] [id number] Univers 10:00:00 10:00:00 EILEEN [id number] sergio jerez [facility] 2020-04-09 2020-04-09 [facility] [id number] Univers 10:00:00 10:00:00 EILEEN jerez [facility] 2020-03-26 2020-03-26 Orders Doctor KIERA 1.2.840.114 [id number] Univers 00:00:00 00:00:00 Only Unassigned, CALE 350.1.13.10 ity of [place] [facility] 4.2.7.2.686 Darío as [phone] [address] 2020-03-17 2020-03-17 Telephone [facility] 1.2.846.580 [id number] Univers 00:00:00 00:00:00 Blair Valdez 350.1.13.10 [place] [phone] Il dicut nal 9 [facility] 2020-01-12 2020-03-14 Telemedici [facility] 1.2.840.114 [id number] Univers 08:28:45 20:11:05 ne Visit Blair Valdez 350.1.13.10 ity [place] [phone] Il dical nal [address] [place] [address] 2020-03-12 2020-03-12 [employer], [facility] Vascular Room 1 [facility] 1.2.840.114 [id number] Univers 08:03:53 09:03:53 Visit Blair Lorenzo 350.1.13.10 ity [place] [phone] Il dicut nal [address] [place] [address] 2020-03-12 2020-03-12 [employer], [facility] Room 1 [facility] 1.2.840.114 [id number] Univers 08:03:04 09:03:04 Visit Blair Lorenzo 350.1.13.10 ity [place] [phone] [address] 2020-03-12 2020-03-12 Outpatient R [facility] [id number] Univers 09:00:00 09:00:00 ity of [facility] 2020-03-12 2020-03-12 Outpatient R [facility] [id number] Univers 08:00:00 08:00:00 [id number] ity of [facility] 2020-03-12 2020-03-12 Outpatient R [facility] [id number] Univers 08:00:00 08:00:00 ity of [facility] 2020-03-09 2020-03-09 Laboratory Pc, [facility] Echo Room [address] [place] [address] 1 .2.840.114 [id number] Univers 09:57:31 10:57:31 Only Blair Lorenzo 350.1.13.10 ity [place] [phone] [address] 2020-03-09 2020-03-09 Outpatient R [facility] [id number] Univers 10:00:00 10:00:00 [id number] ity of [facility] 2020-03-09 2020-03-09 Outpatient R [facility] [id number] Univers 10:00:00 10:00:00 ity of [facility] 2020-03-08 2020-03-08 Outpatient R [facility] [id number] Univers 08:00:00 08:00:00 [id number] [facility] 2020-01-12 2020-01-12 Outpatient Naomy LORENZO [facility] [id number] Univers 13:20:00 13:20:00 LBAIR [id number] sergio jerez [facility] 2020-01-12 2020-01-12 Outpatient Naomy LORENZO [facility] [id number] Univers 13:20:00 13:20:00 BLAIR jerez [facility] Results Test Description Test Time Test Comments Results Result Comments Source COVID-19 (ID NOW RAPID TESTING) 2021-03-14 19:25:39 Test Item Value Reference Range Interpretation Comme nts SARS-CoV-2 Rapid ID NOW (test code Not Detected Not Detected = 70921-4) PETRA (test code = PETRA) ID NOW COVID-19 Assay is an isothermal nucleic acid amplification test intended for the qualitative detection of nucleic acid from SARS-CoV-2 viral RNA in nasopharyngeal (HEAD OF STORE OPERATIONS) specimens. It is used under Emergency Use Authorization (EUA) by FDA. The limit of detection (LOD) of the assay is 125 Genome Equivalents/mL. A positive result is indicative of the presence of SARS-CoV-2 RNA. ?Clinical correlation with patient history and other diagnostic information is necessary to determine patient infection status. A negative (Not Detected) result does not preclude SARS-CoV-2 infection. In patients with clinical symptoms and other tests that are consistent with SARS-CoV-2 infection, negative results should be treated as presumptive negative and a new specimen should be tested with alternative PCR molecular test. Invalid: Please collect a new specimen for repeat patient testing if clinically indicated. Lab Interpretation (test code = Normal 99956-8) [facility] [id number] 19:24:38 Test Item Value Reference Range Interpretation Comments TROPONIN I (test 0.004 ng/mL See_Comment [Automated code = 1980321253) message] The system which generated this result transmitted reference range : <=0.034. The reference range was not used to interpret this result as normal/abnormal . PETRA (test code = Equal or Less than PETRA) 0.034 ng/ml---Normal ?Note: Cardiac troponin begins to rise 3-4 hours after the onset of ischemia. Repeat in 4-6 hours if the sample was drawn within 3-4 hours of the onset of the symptom and found normal. Between 0.035 and 0.120 ng/mL--- Borderline. Questionable myocardial injury or necrosis ? ?Note: Serial measurement may be necessary to confirm or exclude the diagnosis of myocardial injury or necrosis; Clinical correlation (symptoms, EKGs, imaging studies, and others) required; Repeat in 4-6 hours if clinically indicated. ? Equal or Higher than 0.121 ng/mL---Abnormal. Myocardial Injury or Necrosis Likely ? Biotin has been reported to cause a negative bias, interpret results relative to patient's use of biotin. ? Lab Interpretation Normal (test code = 10983-1) [facility] 19:22:20 Test Item Value Reference Range Interpretation Comments APTT Patient (test See_Comment [Automat ed code = 3173-2) message] The system which generated this result transmitted reference range : 23 - 38 Seconds . The reference range was not used to interpr et this result as normal/abnormal . PETRA (test code = PETRA) The [facility] patient population mean normal value for aPTT is 30 seconds. Lab Interpretation Normal (test code = 06346-6) [facility] with [id number] 19:20:59 Test Item Value Reference Range Interpretation Comments WBC (test code = See_Comment H [Automated 6690-2) message] The system which generated this result transmit thanh reference range : 4.20 - 10.70 10*3/?L. The reference range was not used to interpret this result as normal/abnormal . RBC (test code = See_Comment L [Automated 789-8) message] The system which generated this result transmit thanh reference range : 4.26 - 5.52 10*6/?L. The reference range was not used to interpret this result as normal/abnormal . HGB (test code = 10.1 g/dL 12.2-16.4 L 718-7) HCT (test code = 33.2 % 38.4-49.3 L 4544-3) MCV (test code = 82.8 fL 81.7-95.6 787-2) MCH (test code = 25.2 pg 26.1-32.7 L 785-6) MCHC (test code = 30.4 g/dL 31.2-35.0 L 786-4) RDW-SD (test code = 46.9 fL 38.5-51.6 40993-8) RDW-CV (test code = 15.6 % 12.1-15.4 H 788-0) PLT (test code = See_Comment [Automated 777-3) message] The system which generated this result transmit thanh reference range : 150 - 328 10*3/ ?L. The reference range was not u sed to interpret th is result as normal/abnormal . MPV (test code = 10.0 fL 9.8-13.0 70553-1) NRBC/100 WBC (test See_Comment [Automat ed code = 7013690892) message] The system which generated this result transmit thanh reference range : 0.0 - 10.0 /100 WBCs. The reference range was not used to interpret this result as normal/abnormal . NRBC x10^3 (test code <0.01 See_Comment [Auto mated = [id number]) message] The system which generated this result transmit thanh reference range : 10*3/?L. The reference range was not used to interpret this result as normal/abnormal . GRAN MAT (NEUT) % 77.3 % (test code = 770-8) IMM GRAN % (test code 0.70 % = 1315693473) LYMPH % (test code = 14.7 % 736-9) MONO % (test code = 4.8 % 5905-5) EOS % (test code = 1.7 % 713-8) BASO % (test code = 0.8 % 706-2) GRAN MAT x10^3(ANC) 10.16 10*3/uL 1.99-6.95 H (test code = 4755742166) IMM GRAN x10^3 (test 0.09 10*3/uL 0.00-0.06 H code = 6134142650) LYMPH x10^3 (test code 1.94 10*3/uL 1.09-3.23 = 731-0) MONO x10^3 (test code 0.63 10*3/uL 0.36-1.02 = 742-7) EOS x10^3 (test code = 0.23 10*3/uL 0.06-0.53 711-2) BASO x10^3 (test code 0.11 10*3/uL 0.01-0.09 H = 704-7) Lab Interpretation Abnormal (test code = 98697-7) [facility] / [id number] 19:20:18 Test Item Value Reference Range Interpretation Comments PROTIME PATIENT (test See_Comment [Auto mated message] code = 5964-2) The system [employer] generated this result transmitted ref erence range: 12.0 - 1 4.7 Seconds. The re ference range was not u sed to interpret this result as normal/abnor mal. INR (test code = 6301-6) Nor mal INR <1.1; Warfarin Therap eutic range 2.0 to 3. 0 or 2.5 to 3.5, dep ending upon the indica tions. Lab Interpretation (test Normal code = 32453-9) [facility] (NA, K, CL, CO2, GLUCOSE, BUN, CREATININE, CA)2021-03-14 19:13:17 Test Item Value Reference Range Interpretation Comments NA (test code = 138 mmol/L 135-145 6167639482) K (test code = 4.5 mmol/L 3.5-5.0 8789619284) CL (test code = 109 mmol/L 98-108 H 0315130490) CO2 TOTAL (test code = 21 mmol/L 23-31 L 5761351977) AGAP (test code = 2-16 3428331021) BUN (test code = 18 mg/dL 7-23 0217525933) GLUCOSE (test code = 115 mg/dL 70-110 H 2468425268) CREATININE (test code = 1.12 mg/dL 0.60-1.25 3800926517) CALCIUM (test code = 8.8 mg/dL 8.6-10.6 4135239674) eGFR (test code = mL/min/1.73m2 3644489217) PETRA (test code = PETRA) Association of Glomerular Filtration Rate (GFR) and Staging of Kidney Disease* + --+ --+ ------+| GFR (mL/min/1.73 m2) ?| With Kidney Damage ?| ?Without Kidney Damage+ --------+ --------+ +| ?>90 ?| ?Stage one ?| ? Normal ?+ ---+ ---+ -------+| ?60-89 ?| ?Stage two ?| ? Decreased GFR ? + --+ --+ ------+| ?30-59 ?| ?Stage three ?| ? Stage three ? + --+ --+ ------+| ?15-29 ?| ?Stage four ? | ? Stage four ?+ ---+ ---+ -------+| ?<15 (or dialysis) ? ?| ?Stage five ? | ? Stage five ?+ ---+ ---+ -------+ *Each stage assumes the associated GFR level has been in effect for at least three months. ?Stages 1 to 5, with or without kidney disease, indicate chronic kidney disease. Notes: Determination of stages one and two (with eGFR >59mL/min/1.73 m2) requires estimation of kidney damage for at least three months as defined by structural or functional abnormalities of the kidney, manifested by either:Pathological abnormalities or Markers of kidney damage (including abnormalities in the composition of the blood or urine or abnormalities in imaging tests). Lab Interpretation Abnormal (test code = 41823-4) [facility] (ALB, T.PRO, BILI T, BU/BC, ALT, AST, ALK PHOS)2021-03-14 19:13:17 Test Item Value Reference Range Interpretation Comments TOTAL BILI (test code = 6100869645) 0.4 mg/dL 0.1-1.1 BILI UNCON (test code = 6201516333) 0.3 mg/dL 0.1-1.1 BILI CONJ (test code = 1689528812) 0.0 mg/dL 0.0-0.3 T PROTEIN (test code = 1050474674) 6.5 g/dL 6.3-8.2 ALBUMIN (test code = 4246675602) 3.6 g/dL 3.5-5.0 ALK PHOS (test code = 7611440666) 73 U/L 34-122 ALTv (test code = 1742-6) 12 U/L 5-50 AST(SGOT) (test code = 9669780237) 16 U/L 13-40 Lab Interpretation (test code = Normal 61320-1) [facility]2021-[facility] 19:13:17 Test Item Value Reference Range Interpretation Comments LIPASE (test code = 5273410555) 155 U/L 0-220 Lab Interpretation (test code = Normal 07118-1) [facility]OL[facility] [id number] 12:34:00 Test Item Value Reference Range Interpretation Comments SODIUM (test code = 140 MMOL/L 137-145 N NA) POTASSIUM (test code = 4.0 MMOL/L 3.5-5.1 N K) CHLORIDE (test code = 110 MMOL/L 98-107 H CL) CARBON DIOXIDE (test 20 MMOL/L 22-30 L code = CO2) GLUCOSE (test code = 103 MG/DL 74-106 N GLU) BLOOD UREA NITROGEN 16 MG/DL 9-20 N (test code = BUN) GLOMERULAR FILTRATION > 60 Report ing units: RATE (test code = GFR) ml/mi n/1.73 m2 (Modified MDRD Formula)Referen ce Range: > or = 6 0 ml/min/1.73 m2 CREATININE (test code 1.00 MG/DL 0.66-1.25 N = CREAT) CALCIUM (test code = 9.3 MG/DL 8.4-10.2 N CA) RECOLLECTION NEEDED ON 12/19/18 AT 1151 BY [email or web address]: HEMOLYZEDNOTIFIED PATIENT CARE STAFF:[id number] 12:34:00 Test Item Value Reference Range Interpretation Comments MAGNESIUM (test code = MAG) 1.8 MG/DL 1.6-2.3 N RECOLLECTION NEEDED ON 12/19/18 AT 1151 BY [email or web address]: HEMOLYZEDNOTIFIED PATIENT CARE STAFF:DAVIDTPROTHROMBIN [id number] 12:10:00 Test Item Value Reference Range Interpretation Comments PROTHROMBIN TIME 10.7 SECONDS 9.6-11.6 N PATIENT (test code = PTP) INTERNATIONAL NORMAL 1.0 0.8-1.1 N The INR is to be RATIO (test code = used only for INR) monitoring oral anticoagulantth erap y. INDICATION I NR VALUE ---- ---- ---- -------1. Prophylaxis, de ep venous thrombos is, including hig h risk surgery. 2.0 - 3.0 2. Prophylaxis, de ep venous thrombos is, hip surgery, treatment for d eep venous thrombosis or pulmonary prevention of systemic emboli sm in patients wit h valvular heart disease, atrial fibrillation, tissue heart va lve, or acute myocar dial infarction. 2.0 - 3 .0 3. Mechanical prosthesis hear t valves, recurrent syste andrew embolism. 3.0 - 4.5 PTT [id number] 12:10:00 Test Item Value Reference Range Interpretation Comments PTT ACTIVATED (test code = APTT) 25.7 SECONDS 22.0-33.0 N CBC W/AUTO [id number] 11:41:00 Test Item Value Reference Range Interpretation Comments WHITE BLOOD CELL (test code = 8.7 K/MM3 3.8-9.8 N WBC) RED BLOOD CELL (test code = 4.72 M/MM3 3.95-5.67 N RBC) HEMOGLOBIN (test code = HGB) 12.4 G/DL 12.4-16.7 N HEMATOCRIT (test code = HCT) 39.9 % 35.9-49.5 N MEAN CELL VOLUME (test code = 85 fL 81.7-96.1 N MCV) MEAN CELL HGB (test code = MCH) 26.3 pg 27.6-33.2 L MEAN CELL HGB CONCETRATION 31.1 % 32.9-35.5 L (test code = MCHC) RED CELL DISTRIBUTION WIDTH 15.7 % 12.1-15.2 H (test code = RDW) PLATELET COUNT (test code = 194 K/MM3 129-368 N PLT) MEAN PLATELET VOLUME (test code 10.8 fl 7.4-10.4 H = MPV) NEUTROPHIL % (test code = NT%) 60.6 % 43-75 N IMMATURE GRANULOCYTE % (test 0.2 % 0.0-2.0 N code = IG%) LYMPHOCYTE % (test code = LY%) 29.7 % 14-44 N MONOCYTE % (test code = MO%) 6.4 % 4-13 N EOSINOPHIL % (test code = EO%) 1.8 % 0-6 N BASOPHIL % (test code = BA%) 1.3 % 0-2 N NUCLEATED RBC % (test code = 0.0 % 0-1.0 N NRBC%) NEUTROPHIL # (test code = NT#) 5.27 K/mm3 2.0-7.6 N IMMATURE GRANULOCYTE # (test 0.02 x10 3/uL 0-0.03 N code = IG#) LYMPHOCYTE # (test code = LY#) 2.59 K/mm3 1.0-3.8 N MONOCYTE # (test code = MO#) 0.56 K/mm3 0.1-0.8 N EOSINOPHIL # (test code = EO#) 0.16 K/mm3 0.0-0.2 N BASOPHIL # (test code = BA#) 0.11 K/mm3 0.0-0.2 N NUCLEATED RBC # (test code = 0.00 K/mm3 0.0-0.1 N NRBC#)"
[2021-08-24] MEDS ORDERED: ONDANSETRON 4 MG/2 ML VIAL ONE (08:58)
--- NOTE | 2021-08-24 09:01 | RAD REPORT ---
EXAM DESCRIPTION: RAD - Chest Single View - 08/24/2021 8:54 am CLINICAL HISTORY: CHEST PAIN COMPARISON: Chest Single View dated 06/17/2018; Chest Single View dated 10/03/2016; Chest Single View dated 07/12/2016; Chest Single View dated 07/01/2016 FINDINGS: Lines: Left subclavian approach pacemaker/ICD. Lungs: No evidence of edema or pneumonia. Scarring in the right lung base. Pleural: No significant pleural effusions or pneumothorax. Cardiac: The heart size is within normal limits. Bones: No acute fractures. Other: IMPRESSION: No acute cardiopulmonary disease.
[2021-08-24 09:25] LABS: Absolute Lymphocytes (CBC) 1.8 K/uL (0.7-4.9); Hematocrit 33.1 % (39.6-49.0); MPV 7.9 fL (7.6-11.3); RBC Red Blood Cell Count 4.21 M/uL (4.33-5.43)
[2021-08-24 09:28] LABS: Protime INR 1.03
[2021-08-24 09:49] LABS: ALT/SGPT 14 U/L (12-78); AST/SGOT 5 U/L (15-37); Albumin 3.1 g/dL (3.4-5.0); Alkaline Phosphatase 56 U/L (45-117); BUN Blood Urea Nitrogen 29 mg/dL (7-18); Bicarbonate 15 mmol/L (21-32); Bilirubin Direct < 0.1 mg/dL (0-0.2); Bilirubin Total 0.3 mg/dL (0.2-1.0); Glucose Level 108 mg/dL (74-106); Lipase 140 U/L (73-393); Magnesium 2.3 mg/dL (1.8-2.4); NT PRO-BNP 861 pg/mL (<125); Potassium 4.7 mmol/L (3.5-5.1); Protein, Total 7.3 g/dL (6.4-8.2); Sodium Level 143 mmol/L (136-145); Troponin (Emerg Dept Use Only) < 0.02 ng/mL (0.0-0.045)
--- NOTE | 2021-08-24 10:52 | RAD REPORT ---
EXAM DESCRIPTION: CTAngio Aorta For Dissection - 08/24/2021 10:34 am CLINICAL HISTORY: chest pain, abdominal pain COMPARISON: Abdomen Pelvis Wo Contrast dated 10/03/2016 TECHNIQUE: CT of the chest, abdomen, and pelvis was performed. All CT scans are performed using dose optimization technique as appropriate and may include automated exposure control or mA/KV adjustment according to patient size. FINDINGS: Thorax: Chest Wall: No abnormal mass. Pacemaker. Lungs: No acute abnormality. Limited evaluation due to motion. No acute process in the lungs. Pleura: No effusions or pneumothorax. Rafia/Mediastinum: No lymphadenopathy. Mild circumferential thickened distal esophagus. Aorta/Pulmonary Arteries: Ectasia of the ascending thoracic aorta. Mild calcified and noncalcified pl aque throughout the aorta. Heart: Normal size. Coronary artery calcifications. Abdomen/Pelvis: Liver: No acute abnormality or suspicious lesions. Biliary: No biliary ductal dilatation. Stomach: Thickening at the gastric antrum. Duodenum: No significant focal abnormality. Pancreas: No significant abnormality. Spleen: No significant abnormality. Adrenal: No suspicious lesions. Kidney/ureter: No hydronephrosis. Left renal scarring. Multiple bilateral renal lesions which are con sistent with cysts. Nonobstructing stones are present bilaterally. Retroperitoneum: No retroperitoneal adenopathy. Vascular: Abdominal aortic atherosclerosis. 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 Bowel: No significant focal abnormality. Peritoneum: No ascites or free air. Bladder: Grossly unremarkable. Reproductive: No adnexal masses. Bones: Small lytic lesion in the left posterior tenth rib is unchanged and almost certainly benign. P resumed bone island in the right ischium. Other: n/a IMPRESSION: Moderate thickening at the gastric antrum is concerning for gastritis. Consider endoscop y for further evaluation. No other acute findings identified. No aortic aneurysm or acute dissection identified.
[2021-08-24] MEDS ORDERED: FENTANYL CITR 100 MCG/2 ML ONE (11:16)
[2021-08-24] MEDS ORDERED: FAMOTIDINE 20 MG/2 ML VIAL IV ONE (11:16)
--- NOTE | 2021-08-24 12:13 | ER ---
Nurse's Notes [facility] Name: Alexander Bowman Age: 60 yrs Sex: Male : 1960 Arrival Date: 08/24/2021 Time: 08:33 Bed 16 Private MD: Diagnosis: Gastritis Presentation: 08/24 08:33 Chief complaint: EMS states: they were called to the patients residence for reported ap3 vomiting black fluids. EMS states they did not note any blood at the patients home nor in route to hospital. Coronavirus screen: At this time, the client does not indicate any symptoms associated with coronavirus-19. Ebola Screen: No symptoms or risks identified at this time. Risk Assessment: Do you want to hurt yourself or someone else? Patient reports no desire to harm self or others. Onset of symptoms was August 24, 2021. 08:33 Method Of Arrival: EMS: [facility] ap3 08:46 Initial Sepsis Screen: Does the patient meet any 2 criteria? No. Patient's initial ap3 sepsis screen is negative. Does the patient have a suspected source of infection? No. Patient's initial sepsis screen is negative. 08:46 Acuity: JACEY 3 ap3 Historical: - Allergies: 08:35 Aspirin; ap3 08:35 Codeine; ap3 08:35 Levofloxacin; ap3 08:35 mycins; ap3 08:35 PENICILLINS; ap3 08:35 Sulfa (Sulfonamide Antibiotics); ap3 08:35 Tylenol-Codeine #3; ap3 - PMHx: 08:35 Anxiety; Pneumothorax; Pneumonia; Myocardial infarction; Hypertension; COPD; ap3 - PSHx: 08:49 Stented artery; 18" bowel removal; ap3 - Immunization history:: Adult Immunizations up to date, Client reports having NOT received the Covid vaccine. - Social history:: Smoking status: Patient denies any tobacco usage or history of. Screenin:35 Abuse screen: Denies threats or abuse. Nutritional screening: No deficits noted. ap3 Tuberculosis screening: No symptoms or risk factors identified. Fall Risk None identified. Assessment: 08:47 General: Appears uncomfortable, Behavior is calm, cooperative. Pain: Complains of pain ap3 in epigastric area Pain does not radiate. Pain began off and on Since March 2021 Is intermittent, Also complains of nausea. Neuro: Level of Consciousness is awake, alert, obeys commands, Oriented to person, place, time, situation, Appropriate for age Gait is steady, Speech is normal. Cardiovascular: Patient's skin is warm and dry. Respiratory: Airway is patent Respiratory effort is even, unlabored, Respiratory pattern is regular, symmetrical. GI: Pt is actively vomiting bile, Reports nausea, vomiting. 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 09:33 Reassessment: Nurse provided patient with urinal. ap3 11:30 Reassessment: Patient and/or family updated on plan of care and expected duration. Pain ap3 level reassessed. Patient is alert, oriented x 3, equal unlabored respirations, skin warm/dry/pink. Vital Signs: 08:46 BP 124 / 93; Pulse 91; Resp 17; Temp 98.3(O); Pulse Ox 100% ; Weight 83.46 kg; Height 6 ap3 ft. (182.88 cm); 09:35 BP 133 / 55; Pulse 73; Resp 17; Pulse Ox 100% on R/A; ap3 10:49 BP 131 / 68 RA (auto/); Pulse 72; Resp 18; Pulse Ox 100% on R/A; ap3 08:46 Body Mass Index 24.95 (83.46 kg, 182.88 cm) ap3 ED Course: 08:33 Patient arrived in ED. ap3 08:33 Casandra Esteves, MICHELLE is Primary Nurse. ap3 08:43 Slick Rios PA is PHCP. [facility] 08:44 Emanuel Conley MD is Attending Physician. jm 08:47 Triage completed. ap3 08:50 Arm band placed on left wrist. ap3 08:50 Patient has correct armband on for positive identification. Bed in low position. Call ap3 light in reach. Side rails up X2. secured entrance monitor on. Pulse ox on. NIBP on. Door closed. Noise minimized. Warm blanket given. 08:54 XRAY Chest (1 view) In Process Unspecified. EDMS 09:19 Inserted saline lock: 22 gauge in right forearm, using aseptic technique. Blood ap3 collected. 09:19 Initial lab(s) drawn, EKG done. ap3 10:25 Inserted saline lock: 22 gauge in right antecubital area, using aseptic technique. ss 10:34 CT Aorta for Dissection In Process Unspecified. EDMS 11:22 Primary Nurse role handed off by Casandra Esteves, MICHELLE 11:22 Roland Lozoya, RN is Primary Nurse. bp 11:27 Casandra Esteves, MICHELLE is Primary Nurse. ap3 12:12 Ray Gupta MD is Referral Physician. [facility] 12:14 No provider procedures requiring assistance completed. IV discontinued, intact, jh5 bleeding controlled, No redness/swelling at site. Administered Medications: 09:18 Drug: Zofran (Ondansetron) 4 mg Route: IVP; Site: right forearm; ap3 09:48 Follow up: Response: No adverse reaction ap3 11:27 Follow up: Response: No adverse reaction; Nausea is decreased ap3 11:27 Drug: Pepcid (famotidine) 20 mg Route: IVP; Site: right antecubital; ap3 11:54 Follow up: Response: No adverse reaction ap3 11:27 Drug: fentaNYL (PF) 50 mcg Route: IVP; Site: right antecubital; ap3 11:55 Follow up: Response: No adverse reaction; Pain is decreased ap3 Outcome: 12:12 Discharge ordered by MD. [facility] 12:18 Discharged to home ambulatory. [facility] 12:18 Condition: good 12:18 Discharge instructions given to patient, Instructed on discharge instructions, follow up and referral plans. medication usage, safety practices, Demonstrated understanding of instructions, follow-up care, medications, Prescriptions given X 2. 12:18 Patient left the ED. 5 Signatures: Dispatcher [employer] EDMS Slick Rios PA PA jmm Smirch, Shelby, RN RN Roland Lozoya RN MICHELLE Casandra Esteves, MICHELLE MARTINEZ ap3 Yessy Tijerina RN RN 5
--- NOTE | 2021-08-24 12:13 | EDPHYS ---
Physician Documentation [facility] Name: Alexander Bowman Age: 60 yrs Sex: Male : 1960 Arrival Date: 08/24/2021 Time: 08:33 Bed 16 Private MD: ED Physician Emanuel Conley HPI: 08/24 08:44 This 60 yrs old Male presents to ER via EMS with complaints of Epigastric Pain. jmm 08:44 The patient presents with abdominal pain. Onset: The symptoms/episode began/occurred jmm gradually. The symptoms do not radiate. Associated signs and symptoms: Pertinent positives: vomiting. The symptoms are described as achy. The patient has experienced similar episodes in the past. This is a this is a 60-year-old male with a history of CAD, pneumonia, hypertension the presents emerged department with complaints of ongoing epigastric pain which radiates into his chest. Patient states symptoms began this past summer. Patient has been prescribed medication with no relief and states having a more intense episode today.. Historical: - Allergies: 08:35 Aspirin; ap3 08:35 Codeine; ap3 08:35 Levofloxacin; ap3 08:35 mycins; ap3 08:35 PENICILLINS; ap3 08:35 Sulfa (Sulfonamide Antibiotics); ap3 08:35 Tylenol-Codeine #3; ap3 - PMHx: 08:35 Anxiety; Pneumothorax; Pneumonia; Myocardial infarction; Hypertension; COPD; ap3 - PSHx: 08:49 Stented artery; 18" bowel removal; ap3 - Immunization history:: Adult Immunizations up to date, Client reports having NOT received the Covid vaccine. - Social history:: Smoking status: Patient denies any tobacco usage or history of. ROS: 08:44 Constitutional: Negative for fever, chills, and weight loss. jmm 08:44 Cardiovascular: Positive for chest pain. 08:44 Respiratory: 08:44 Abdomen/GI: Positive for abdominal pain, nausea and vomiting. 08:44 All other systems are negative. Exam: 08:44 Constitutional: This is a well developed, well nourished patient who is awake, alert, jmm and in no acute distress. Head/Face: atraumatic. Eyes: EOMI, no conjunctival erythema appreciated ENT: Moist Mucus Membranes Neck: Trachea midline, Supple Chest/axilla: Normal chest wall appearance and motion. Cardiovascular: Regular rate and rhythm. No edema appreciated Respiratory: Normal respirations, no respiratory distress appreciated 08:44 Back: Normal ROM Skin: General appearance color normal MS/ Extremity: Moves all extremities, no obvious deformities appreciated, no edema noted to the lower extremities Neuro: Awake and alert, normal gait Psych: Behavior is normal, Mood is normal, Patient is cooperative and pleasant 08:44 Abdomen/GI: Inspection: abdomen appears normal, Bowel sounds: normal, Palpation: soft, mild abdominal tenderness, in the epigastric area. Vital Signs: 08:46 BP 124 / 93; Pulse 91; Resp 17; Temp 98.3(O); Pulse Ox 100% ; Weight 83.46 kg; Height 6 ap3 ft. (182.88 cm); 09:35 BP 133 / 55; Pulse 73; Resp 17; Pulse Ox 100% on R/A; ap3 10:49 BP 131 / 68 RA (auto/); Pulse 72; Resp 18; Pulse Ox 100% on R/A; ap3 08:46 Body Mass Index 24.95 (83.46 kg, 182.88 cm) ap3 MDM: 08:44 Patient medically screened. ren 12:10 Data reviewed: vital signs, nurses notes. Counseling: I had a detailed discussion with yuni the patient and/or guardian regarding: the historical points, exam findings, and any diagnostic results supporting the discharge/admit diagnosis, lab results, radiology results, the need for outpatient follow up, to return to the emergency department if symptoms worsen or persist or if there are any questions or concerns that arise at home. ED course: Patient's patient's pain is relieved in the ED. I do not suspect ACS at this time. Symptoms have been chronic since the summer. Cardiac enzymes are normal. Patient advised to follow GI and otherwise given strict return precautions. Patient understood agrees plan of care.. 12 08:44 Order name: Basic Metabolic Panel [facility] 08/24 08:44 Order name: CBC with Diff; Complete Time: 09:47 [facility] 08/24 08:44 Order name: LFT's [facility] 08/24 08:44 Order name: Magnesium; Complete Time: 09:54 [facility] 08/24 08:44 Order name: NT PRO-BNP; Complete Time: 09:54 [facility] 08/24 08:44 Order name: PT-INR; Complete Time: 09:47 [facility] 08/24 08:44 Order name: Troponin (emerg Dept Use Only); Complete Time: 09:54 [facility] 08/24 08:44 Order name: XRAY Chest (1 view); Complete Time: 09:07 [facility] 08/24 08:44 Order name: Lipase; Complete Time: 09:54 [facility] 08/24 08:45 Order name: Basic Metabolic Panel; Complete Time: 09:54 [facility] 08/24 08:45 Order name: Liver (Hepatic) Function; Complete Time: 09:54 [facility] 08/24 10:01 Order name: CT Aorta for Dissection; Complete Time: 10:57 [facility] 08/24 08:44 Order name: EKG; Complete Time: 08:45 [facility] 08/24 08:44 Order name: Cardiac monitoring; Complete Time: 08:51 [facility] 08/24 08:44 Order name: EKG - Nurse/Tech; Complete Time: 09:19 [facility] 08/24 08:44 Order name: IV Saline Lock; Complete Time: 09:19 [facility] 08/24 08:44 Order name: Labs collected and sent; Complete Time: 09:19 [facility] 08/24 08:44 Order name: O2 Per Protocol; Complete Time: 08:51 [facility] 08/24 08:44 Order name: O2 Sat Monitoring; Complete Time: 08:51 [facility] Administered Medications: 09:18 Drug: Zofran (Ondansetron) 4 mg Route: IVP; Site: right forearm; ap3 09:48 Follow up: Response: No adverse reaction ap3 11:27 Follow up: Response: No adverse reaction; Nausea is decreased ap3 11:27 Drug: Pepcid (famotidine) 20 mg Route: IVP; Site: right antecubital; ap3 11:54 Follow up: Response: No adverse reaction ap3 11:27 Drug: fentaNYL (PF) 50 mcg Route: IVP; Site: right antecubital; ap3 11:55 Follow up: Response: No adverse reaction; Pain is decreased ap3 Disposition: 08/25 09:14 Co-signature as Attending Physician, Emanuel Conley MD I agree with the assessment and ren plan of care. Disposition Summary: 08/24/21 12:12 Discharge Ordered Location: Home [facility] Condition: Stable [facility] Diagnosis - Gastritis jmm Followup: [facility] - With: Ray Gupta MD - When: 2 - 3 days - Reason: Recheck today's complaints, Continuance of care, Re-evaluation by your physician Discharge Instructions: - Discharge Summary Sheet [facility] - Gastritis, Adult [facility] Forms: - Medication Reconciliation Form [facility] - Thank You Letter [facility] - Antibiotic Education [facility] - Prescription Opioid Use [facility] Prescriptions: - ondansetron 4 mg Oral tablet,disintegrating - take 1 tablet by ORAL route every 4-6 hours; 20 tablet; Refills: 0, Product jm Selection Permitted - Carafate 1 gram Oral Tablet - take 1 tablet by ORAL route 4 times per day take on an empty stomach, beginning jmm on waking and last dose at bedtime; 100 tablet; Refills: 0, Product Selection Permitted Signatures: Dispatcher [employer] Emanuel Zhang MD MD cha Mickail, Joel, PA PA jmm Prokisch, Amanda, RN RN ap3
[2021-08-24 12:31] VITALS: TEMP 98.3; O2SAT 100
[2021-08-24 12:33] VITALS: BP 131/68
== END 2021-08-24 12:18 | disposition home or self-care (01) ==
LOC: ER 08:30
DX: K29.70 Gastritis, unspecified, without bleeding (principal); I10 Essential (primary) hypertension; J44.9 Chronic obstructive pulmonary disease, unspecified; I25.2 Old myocardial infarction; Z88.0 Allergy status to penicillin; Z88.2 Allergy status to sulfonamides
CPT/HCPCS: 93005; 85025; 80048; 36415; 83735; 85610; 80076; 84484; 83690; 83880; 71275; 74175; 71045; 99285; Q9967; J3010; J2405

== ENCOUNTER 2021-10-02 03:57 | Emergency (ER) | payer OTHER ==
--- OUTSIDE RECORDS SUMMARY | 2021-10-02 04:07 | XMS REPORT | Continuity of Care Document ---
:1960 Author Organization [facility] t Address [address] [place] [address] Care Team Providers Name Role Phone Savannah Weathers Primary Care Physician Konrad MACARIO Attending Clinician KONRAD Attending Clinician Unavailable Doctor Unassigned, Name Attending Clinician Unavailable Bj MACARIO Attending Clinician James MACARIO Attending Clinician Jason Wang MD Attending Clinician [phone] BJ Attending Clinician Unavailable SOLOMON Attending Clinician Unavailable Solomon MACARIO Attending Clinician STEPHANIE Attending Clinician Unavailable Pc, Vascular Room 1 - Attending Clinician Unavailable Pc, Echo Room 1 - Attending Clinician Unavailable KONRAD Admitting Clinician Unavailable Jason Wang MD Admitting Clinician [phone] Payers Payer Name Policy Type Policy Number Effective Date Expiration Date S [facility] MEDICARE PART A \\T\\ [id number] 2014 B 00:00:00 [facility] [id number] 2014 00:00:00 [place] [id number] 2014 00:00:00 Problems Condition Condition Condition Status Onset Resolution Last Treating Co mments Source Name Details Category Date Date Treatment Clinician Date Coronary Coronary Disease Active Unive rs artery artery 9-09 ity of disease disease 00:00: [place] involving involving 00 Medi j[place] coronary coronary artery of artery of [place] heart heart without without angina angina pectoris [...] U 2017-09 [facility] ins 2 [place] 00:00: [address] Sulfa DA Active U 2017-09 [facility] (Sulfona 2 [place] mide 00:00: [place] [facility] codeine DA Active U 2017-09 [facility] 2 00:00: [address] aspirin DA Active U 2017-09 [facility] 00:00: [place] [facility] acetamin DA Active U 2017-09 [facility] ophen 00:00: [address] levoflox DA Active U 2017-09 [facility] acin 00:00: [place] [address] Medical Wall Social History Social Habit Start Date Stop Date Quantity Comments Source Exposure to Not sure University SARS-CoV-2 [facility] (event) [place] History of Snuff User University of tobacco use [facility] Alcohol intake 2021-05-19 2021-05-19 Ex-drinker [facility] 00:00:00 00:00:00 (finding) [facility] Tobacco use and 2019-07-09 2019-07-09 Current user Univers ity of exposure 00:00:00 00:00:00 [facility] Sex Assigned At [birth year] Universit y of 00:00:00 00:00:00 [facility] Smoking Status Start Date Stop Date Source Former smoker 2020-07-19 00:00:00 2020-07-19 00:00:00 [facility] Medications Ordered Filled Start Stop Current Ordering Indication Dosage Frequency Signature Comments Components Source Medication Medication Date Date Medication? Clinician (SIG) Name Name morpHINE 2020- No 2mg 2 mg, Slow Un mateusz injection 2 03-14 IV Push, ity of mg 21:45: 20:45 ONCE, 1 [place] 00 :00 dose, [facility] Medical 03/14/21 at Branch 1645, STAT morpHINE 2020- No 6mg 6 mg, Slow Un mateusz injection 6 03-14 IV Push, ity of mg 20:45: 19:45 ONCE, 1 [place] 00 :00 dose, Mon Medical 03/14/21 at Branch 1545, STAT ondansetron 2020- No 4mg 4 mg, Slow Univers (ZOFRAN 03-14 IV Push, ity of (PF)) 19:45: 18:41 ONCE, 1 [place] injection 4 00 :00 dose, Mon Med [...] [place] 14 [place] methocarbam 2019- Yes 500mg Take 500 U nivers ol [...] [place] methocarbam Yes 500mg Take 500 U nivers ol [...] mouth ity of tablet 10:56: every 4 [place] 14 (four) Medical hours as Branch needed. [...] Branch ejection daily. fraction) enalapril 2019-09 Yes [id number] 10mg Take 1 U nivers 10 mg 0-26 tablet by ity of tablet 00:00: mouth 2 [place] 00 (two) Medical times Branch daily. enalapril 2019-09 Yes [id number] 10mg Take 1 U nivers 10 mg 0-26 tablet by ity of tablet 00:00: mouth (two) Medical times Branch daily. enalapril 2019- Yes [id number] 10mg Take 1 U nivers 10 mg 0-26 tablet by ity of tablet 00:00: mouth 2 (two) Medical times Branch daily. enalapril 2019- Yes [id number] 10mg Take 1 U nivers 10 mg 0-26 tablet by ity of tablet 00:00: mouth (two) Medical times Branch daily. enalapril 2019- Yes [id number] 10mg Take 1 U nivers 10 mg 0-26 tablet by ity of tablet 00:00: mouth (two) Medical times Branch daily. enalapril 2019- Yes [id number] 10mg Take 1 U nivers 10 mg 0-26 tablet by ity of tablet 00:00: mouth (two) Medical times Branch daily. enalapril 2019- Yes [id number] 10mg Take 1 U nivers 10 mg 0-26 tablet by ity of tablet 00:00: mouth (two) Medical times Branch daily. enalapril 2019- Yes [id number] 10mg Take 1 U nivers 10 mg 0-26 tablet by ity of tablet 00:00: mouth (two) Medical times Branch daily. enalapril 2019- Yes [id number] 10mg Take 1 U nivers 10 mg 0-26 tablet by ity of tablet 00:00: mouth (two) Medical times Branch daily. enalapril 2019-1 Yes [id number] 10mg Take 1 U nivers 10 mg 0-26 tablet by ity of tablet 00:00: mouth (two) Medical times Branch daily. enalapril 2019-1 Yes [id number] 10mg Take 1 U nivers 10 mg 0-26 tablet by ity of tablet 00:00: mouth 2 (two) Medical times Branch daily. enalapril 2019-1 Yes [id number] 10mg Take 1 U nivers 10 mg 0-26 tablet by ity of tablet 00:00: mouth 2 (two) Medical times Branch daily. enalapril 2019- Yes [id number] 10mg Take 1 U nivers 10 mg 0-26 tablet by ity of tablet 00:00: mouth (two) Medical times Branch daily. enalapril 2020-1 Yes [id number] 10mg Take 1 U nivers 10 mg 0-26 tablet by ity of tablet 00:00: mouth (two) Medical times Branch daily. enalapril 2020-1 Yes [id number] 10mg Take 1 U nivers 10 mg 0-26 tablet by ity of tablet 00:00: mouth (two) Medical times Branch daily. enalapril 2020-1 Yes [id number] 10mg Take 1 U nivers 10 mg 0-26 tablet by ity of tablet 00:00: mouth (two) Medical times Branch daily. enalapril 2020-1 Yes [id number] 10mg Take 1 U nivers 10 mg 0-26 tablet by ity of tablet 00:00: mouth (two) Medical times Branch daily. enalapril 2020-1 Yes [id number] 10mg Take 1 U nivers 10 mg [...] Take by Uni vers 10 mg 7-02 06-29 mouth ity of tablet 12:47: 00:00 daily. [place] 06 :00 Medical Branch enalapril 2020-0 2020- No Take by Uni vers 10 mg 7-02 -29 mouth ity of tablet 12:47: 00:00 daily. 06 :00 Medical Branch enalapril 2020-0 2020- No Take by Uni vers 10 mg 7-02 -29 mouth ity of tablet 12:47: 00:00 daily. [place] 06 :00 Medical Branch enalapril 2020-0 2020- No Take by Uni vers 10 mg 7-02 -29 mouth ity of tablet 12:47: 00:00 daily. [place] 06 :00 Medical Branch carvediloL 2020-0 Yes [...] ity of tablet 00:00: 00:00 mouth 2 [place] 00 :00 (two) Medical times Branch daily with meals. carvediloL 2020-0 2020- No 6.25mg Take 1 Un mateusz 6.25 mg 6-29 07-10 tablet by ity of tablet 00:00: 00:00 mouth 2 [place] 00 :00 (two) Medical times Branch daily with meals. proMETHazin 2018-09 Yes 25mg Take 25 mg Univers e 25 mg 0-16 by mouth ity of tablet 19:35: every 4 [place] [address] (four) Medical hours as Branch needed. proMETHazin 2018-09 Yes 25mg Take 25 mg Univers e 25 mg 0-16 by mouth ity of tablet 19:35: every 4 [place] [address] (four) Medical hours as Branch needed. proMETHazin 2018-09 Yes 25mg Take 25 mg Univers e 25 mg 0-16 by mouth ity of tablet 19:35: every 4 [place] [address] (four) Medical hours as Branch needed. proMETHazin 2018-09 Yes 25mg Take 25 mg Univers e 25 mg 0-16 by mouth ity of tablet 19:35: every 4 [place] [address] (four) Medical hours as Branch needed. proMETHazin 2018-09 Yes 25mg Take 25 mg Univers e 25 mg 0-16 by mouth ity of tablet 19:35: every 4 [place] [address] (four) Medical hours as Branch needed. proMETHazin [...] mouth ity of tablet 19:35: every 4 [place] 43 (four) Medical hours as Branch needed. proMETHazin 2018-09 Yes 25mg Take 25 mg Univers e 25 mg 0-16 by mouth ity of tablet 19:35: every 4 [place] 43 (four) Medical hours as Branch needed. proMETHazin 2018-09 Yes 25mg Take 25 mg Univers e 25 mg 0-16 by mouth ity of tablet 19:35: every 4 [place] 43 (four) Medical hours as Branch needed. proMETHazin 2018-09 Yes 25mg Take 25 mg Univers e 25 mg 0-16 by mouth ity of tablet 19:35: every 4 [place] 43 (four) Medical hours as Branch needed. proMETHazin 2018-09 Yes 25mg Take 25 mg Univers e 25 mg 0-16 by mouth ity of tablet 19:35: every 4 [place] 43 (four) Medical hours as Branch needed. proMETHazin 2018-09 Yes 25mg Take 25 mg Univers e 25 mg 0-16 by mouth ity of tablet 19:35: every 4 [place] 43 (four) Medical hours as Branch needed. proMETHazin 2018-09 Yes 25mg Take 25 mg Univers e 25 mg 0-16 by mouth ity of tablet 19:35: every 4 [place] 43 (four) Medical hours as Branch needed. proMETHazin 2018-09 Yes 25mg Take 25 mg Univers e 25 mg 0-16 by mouth ity of tablet 19:35: every 4 [place] 43 (four) Medical hours as Branch needed. proMETHazin 2018-09 Yes 25mg Take 25 mg Univers e 25 mg 0-16 by mouth ity of tablet 19:35: every 4 [place] 43 (four) Medical hours as Branch needed. [...] 500 mg 47 (three) Medical tablet times [place] daily. Dexlansopra 2018-09 Yes Take by Un [...] 47 times Medical capsule daily. Branch hydrocodone 2019-1 Yes Take by Un mateusz /acetaminop 0-16 [...] 0-16 mouth ity of tablet 19:33: daily. [place] [address] Medical Branch chlordiazeP 2018-09 Yes 10mg Take 10 mg Univers OXIDE 10 mg 0-16 by mouth 3 it y of capsule 19:33: (three) [place] 46 times Medical daily. Branch enalapril 2018-09 Yes Take by Univ ers 10 mg 0-16 mouth ity of tablet 19:33: daily. [place] [address] Medical Branch chlordiazeP 2018-09 Yes 10mg Take 10 mg Univers OXIDE 10 mg 0-16 by mouth 3 it y of capsule 19:33: (three) [place] 46 times Medical daily. Branch enalapril 2018-09 Yes Take by Univ ers 10 mg 0-16 mouth ity of tablet 19:33: daily. [place] [address] Medical Branch chlordiazeP 2018-09 Yes 10mg Take 10 mg Univers OXIDE 10 mg 0-16 by mouth 3 it y of capsule 19:33: (three) [place] 46 times Medical daily. Branch enalapril 2018-09 Yes Take by Univ ers 10 mg 0-16 mouth ity of tablet 19:33: daily. [address] chlordiazeP 2018-09 Yes 10mg Take 10 mg Univers OXIDE 10 mg 0-16 by mouth 3 it y of capsule 19:33: (three) [place] 46 times Medical daily. Branch enalapril 2018-09 Yes Take by Univ ers 10 mg 0-16 mouth ity of tablet 19:33: daily. [address] chlordiazeP 2018-09 Yes 10mg Take 10 mg Univers OXIDE 10 mg 0-16 by mouth 3 it y of capsule 19:33: (three) [place] 46 times Medical daily. [place] enalapril 2018-09 Yes Take by Univ ers 10 mg 0-16 mouth ity of tablet 19:33: daily. [address] chlordiazeP 2018-09 Yes 10mg Take 10 mg Univers OXIDE 10 mg 0-16 by mouth 3 it y of capsule 19:33: (three) [place] 46 times Medical daily. [place] enalapril 2018-09 Yes Take by Univ ers 10 mg 0-16 mouth ity of tablet 19:33: daily. [address] chlordiazeP 2018-09 Yes 10mg Take 10 mg Univers OXIDE 10 mg 0-16 by mouth 3 it y of capsule 19:33: (three) [place] 46 times Medical daily. [place] enalapril 2018-09 Yes Take by Univ ers 10 mg 0-16 mouth ity of tablet 19:33: daily. [address] chlordiazeP 2018-09 Yes 10mg Take 10 [...] [place] 46 times Medical daily. Branch chlordiazeP Yes 10mg Take 10 mg Univers OXIDE [...] 3 it y of capsule 19:33: (three) [place] 46 times Medical daily. Branch chlordiazeP 2019-1 Yes 10mg Take 10 mg Univers OXIDE 10 mg 0-16 by mouth 3 it y of capsule 19:33: (three) [place] 46 times Medical daily. Branch Vital Signs Vital Name Observation Time Observation Value Comments Source Systolic blood 2021-05-19 19:59:00 116 mm[Hg] Univer sity of [facility] Diastolic blood 2021-05-19 19:59:00 82 mm[Hg] Unive rsity of [facility] Heart rate 2021-05-19 19:59:00 80 /min Universi ty of [facility] Body temperature 2021-05-19 19:59:00 36.06 Yoly [facility] ersity of [facility] Respiratory rate 2021-05-19 19:59:00 18 /min Univ ersity of [facility] Body height 2021-05-19 19:59:00 182.9 cm Universi ty of [facility] Body weight 2021-05-19 19:59:00 88.179 kg Universi ty of [facility] BMI 2021-05-19 19:59:00 26.37 kg/m2 Universi ty [facility] Oxygen saturation in 2021-05-19 19:59:00 99 /min University of Arterial blood by [facility] Pulse oximetry Branch Heart rate 2021-03-14 20:40:00 71 /min Universi ty of [facility] Respiratory rate 2021-03-14 20:40:00 20 /min [facility] ersity [facility] Oxygen saturation in 2021-03-14 20:40:00 97 /min University of Arterial blood by [facility] Pulse oximetry Branch Systolic blood 2021-03-14 20:30:00 109 mm[Hg] Univer sity of [facility] Diastolic blood 2021-03-14 20:30:00 71 mm[Hg] Unive rsity of [facility] Body temperature 2021-03-14 18:27:00 36.22 Yoly Univ ersity of [facility] Body weight 2021-03-14 18:27:00 88.451 kg Universi ty of [facility] BMI 2021-03-14 18:27:00 26.45 kg/m2 Universi ty of [place] [facility] Systolic blood 2020-07-19 16:03:00 147 mm[Hg] Univer sity of pressure [place] [facility] Diastolic blood 2020-07-19 16:03:00 103 mm[Hg] Unive rsity of pressure [place] [facility] Heart rate 2020-07-19 16:03:00 79 /min Universi ty of [place] [facility] Respiratory rate 2020-07-19 15:58:00 19 /min Univ ersity of [place] [facility] Body height 2020-07-19 15:58:00 182.9 cm Universi ty of [place] [facility] Body weight 2020-07-19 15:58:00 92.942 kg Universi ty of [place] [facility] BMI 2020-07-19 15:58:00 27.79 kg/m2 Universi ty of [place] [facility] Oxygen saturation in 2020-07-19 15:58:00 96 /min University of Arterial blood by [facility] Pulse oximetry Branch Systolic blood 2020-06-01 19:05:00 145 mm[Hg] Univer sity of pressure [place] [facility] Diastolic blood 2020-06-01 19:05:00 99 mm[Hg] Unive rsity of pressure [place] [facility] Heart rate 2020-06-01 19:05:00 86 /min Universi ty of [place] [facility] Body height 2020-06-01 19:05:00 182.9 cm Universi ty of [place] [facility] Body weight 2020-06-01 19:05:00 90.583 kg Universi ty of [place] [facility] BMI 2020-06-01 19:05:00 27.08 kg/m2 Universi ty of [place] [facility] Oxygen saturation in 2020-06-01 19:05:00 99 /min University of Arterial blood by [facility] Pulse oximetry Branch Systolic blood 2020-03-09 15:33:00 149 mm[Hg] Univer sity of pressure [place] [facility] Diastolic blood 2020-03-09 15:33:00 97 mm[Hg] Unive rsity of pressure [place] [facility] Heart rate 2020-03-09 15:33:00 75 /min Universi ty of [place] [facility] Body height 2020-03-09 15:33:00 182.9 cm Universi ty of [place] [facility] Body weight 2020-03-09 15:33:00 90.266 kg Universi ty of [place] [facility] BMI 2020-03-09 15:33:00 26.99 kg/m2 Universi ty of [place] [facility] [place] Procedures Procedure Date / Time Performing Clinician Source Performed US ABDOMEN LIMITED 2021-08-04 22:00:00 Leela Clark [facility] ASSIGNMENT OF BENEFITS 2021-08-04 20:51:34 Doctor Lexi, Maury [facility] Name Medical [place] EXTERNAL PROVIDER RECORDS 2021-05-25 05:01:00 Doctor Elliott [facility] XR CHEST 1 VW 2021-03-14 18:43:52 Addison Ramirez [facility] CBC WITH DIFF 2021-03-14 18:36:00 James Addison [facility] COVID-19 (ID NOW RAPID 2021-03-14 18:36:00 Addison Ramirez [facility] TESTING) Medical Branch LIPASE 2021-03-14 18:35:00 Addison Ramirez [facility] TROPONIN I 2021-03-14 18:35:00 Addison Ramirez [facility] HEPATIC FUNCTION PANEL 2021-03-14 18:35:00 Addison Ramirez [facility] ([id number]) (ALB,T.PRO,BILI Medical Branch T,BU/BC,ALT,AST,ALK PHOS) BASIC METABOLIC PANEL 2021-03-14 18:35:00 Addison Ramirez [facility] (NA, K, CL, CO2, GLUCOSE, Medica l Branch BUN, CREATININE, CA) PROTHROMBIN TIME / INR 2021-03-14 18:35:00 Addison Ramirez [facility] ACTIVATED PARTIAL 2021-03-14 18:35:00 Addison Ramirez [facility] THRMPLAS CHRISTIANO [facility] MEDICATION CORRESPONDENCE 2021-01-13 05:01:00 Doctor Elliott [facility] [place] MEDICATION CORRESPONDENCE 2021-01-13 05:01:00 Doctor Elliott [facility] [place] CONSENT/REFUSAL FOR 2020-07-19 15:38:32 Doctor Elliott [facility] DIAGNOSIS AND TREATMENT [place] [facility] [place] AUTHORIZATION TO RELEASE 2020-06-01 05:01:00 Doctor Elliott [facility] PHI TO [facility] Name Medical [place] EXTERNAL PROVIDER - ADC 2020-03-26 05:01:00 Doctor Unassigned, U [facility] CARDIOLOGY [place] [facility] Plan of Care Planned Activity Planned Date Details Comments Source Future Scheduled 2021-07-19 Depression screening [facility] Test 00:00:00 (procedure) [code = Medical Branch 277188464] Future Scheduled 2021-05-25 INFLUENZA VACCINE Univer [facility] Test 00:00:00 (Season Ended) [code = Medic al Branch INFLUENZA VACCINE (Season Ended)] Future Scheduled 2016 Screening for [facility] Test 00:00:00 malignant neoplasm of Medica l Branch lung (procedure) [code = 803076000] Future Scheduled 2011 Screening for occult [facility] Test 00:00:00 blood in feces Medical [facility] h (procedure) [code = 972421574] Future Scheduled 2011 Stool DNA-based [facility] Test 00:00:00 colorectal cancer Medical Br anch screening (procedure) [code = 550351873406090] Future Scheduled 2011 Flexible fiberoptic [facility] Test 00:00:00 sigmoidoscopy Medical Branch (procedure) [code = 78206938] Future Scheduled 2011 Screening for [facility] Test 00:00:00 malignant neoplasm of Medica l Branch colon (procedure) [code = 101087237] Future Scheduled 2011 Screening for [facility] Test 00:00:00 malignant neoplasm of Medica l Branch colon (procedure) [code = 284248390] Future Scheduled 2011 Zoster Recombinant [facility] Test 00:00:00 Vaccine (SHINGRIX) (1 Medica l Branch of 2) [code = Zoster Recombinant Vaccine (SHINGRIX) (1 of 2)] Future Scheduled 1980 DTaP,Tdap,and Td Univers [facility] Test 00:00:00 Vaccines (1 - Tdap) Medical Branch [code = DTaP,Tdap,and Td Vaccines (1 - Tdap)] Future Scheduled 1966 [facility]AL 0-64 [facility] YEARS COMBINED SERIES Medica l Branch (1 of 1 - PPSV23) [code = PNEUMOCOCCAL 0-64 YEARS COMBINED SERIES (1 of 1 - PPSV23)] Future Scheduled 1960 Hepatitis C screening Un [facility] Test 00:00:00 (procedure) [code = Medical Branch [id number]] Encounters Start End Encounter Admission Attending Care Care Encounter Source Date/Time Date/Time Type Type Clinicians Facility Department ID 2021-07-25 Emergency [facility] [id number] Univers 02:36:54 ity of [facility] 2021-08-10 2021-08-10 Telephone [facility] [id number] Univers 00:00:00 00:00:00 Nando EDVIN [id number] i ty [id number] [phone] [address] 2021-08-04 2021-08-04 Outpatient R [facility] [id number] Univers 14:54:13 23:59:00 NANDO ity of [facility] 2021-08-04 2021-08-04 [facility] [id number] Univers 14:54:13 23:59:00 Encounter Nando EDVIN [id number] ity [id number] [id number] [facility] [address] [place] 2021-08-04 2021-08-04 Outpatient R [facility] [id number] Univers 00:00:00 00:00:00 NANDO [id number] ity of [facility] 2021-08-04 2021-08-04 Orders Doctor KIERA [id number] Univers 00:00:00 00:00:00 Only Unassigned, CALE [id number] ity of [place] [facility] [id number] Darío as [phone] [facility] [address] [place] 2021-07-29 2021-07-29 Telephone [facility] [id number] Univers 00:00:00 00:00:00 Nando EDVIN [id number] i ty [id number] [id number] Nj dical NAL 188 [facility] 2021-06-06 2021-06-06 Outpatient R KONRAD [facility] [id number] Univers 10:15:00 10:15:00 [facility] [id number] [facility] 2021-06-06 2021-06-06 [facility] [id number] Univers 10:15:00 10:15:00 NANDO joshua [facility] 2021-05-27 2021-05-27 [facility] [id number] Univers 00:00:00 00:00:00 NANDO [id number] [facility] 2021-05-27 2021-05-27 [facility] [id number] Univers 00:00:00 00:00:00 NANDO joshua [facility] 2021-05-25 2021-05-25 Orders Doctor KIERA [id number] Univers 00:00:00 00:00:00 Only Unassigned, CALE [id number] ity of [place] [facility] [id number] Darío as [id number] [address] 2021-05-19 2021-05-19 [facility] [id number] Univers 14:42:06 16:05:39 Visit Nando [place] [id number] i ty [id number] Profess[place] [phone] Nj dical nal [address] [place] [address] 2021-05-19 2021-05-19 [facility] [id number] Univers 14:30:00 16:05:39 NANDO joshua [facility] 2021-05-19 2021-05-19 [facility] [id number] Univers 14:45:00 14:45:00 NANDO [id number] [facility] 2021-05-17 2021-05-17 [facility] [id number] Univers 00:00:00 00:00:00 Boaztimo Edvin [id number] ity [id number] [phone] Nj dical nal 059 [facility] 2021-03-31 2021-03-31 [facility] [id number] Univers 00:00:00 00:00:00 Vandanaheedtimo [place] 350.1.13.10 ity of [id number] [phone] Nj dical nal 9 [facility] 2021-03-14 2021-03-14 Emergency RamirezAddison [facility] 1.2.840. [id number] Univers 13:23:00 16:01:00 Eleuterio Wang 3 50.1.13.10 ity [id number] [phone] [facility] 084 Branch 2021-01-17 2021-01-17 [facility] [id number] Univers 14:00:00 14:00:00 BLAIR [id number] ity o f [facility] 2021-01-17 2021-01-17 [facility] [id number] Univers 14:00:00 14:00:00 BLAIR ity o f [facility] 2021-01-13 2021-01-13 Orders Doctor QURESHI [id number] [id number] Univers 00:00:00 00:00:00 Only Unassigned, CALE 350.1.13.10 [facility] 4.2.7.2.686 Darío as [phone] [facility] 009 Branch 2020-08-02 2020-08-02 Outpatient [facility] [id number] Univers 08:00:00 08:00:00 [id number] ity of [facility] 2020-08-02 2020-08-02 Outpatient R SOLOMON [facility] [id number] Univers 08:00:00 08:00:00 VALENTE ity [facility] 2020-07-19 2020-07-19 Office [facility] 1.2.840.114 [id number] Univers 10:39:13 11:26:38 Visit Blair Valdez 350.1.13.10 ity [place] Profess[place] [id number] [address] 2020-07-19 2020-07-19 Outpatient [facility] [id number] Univers 11:00:00 11:00:00 BLAIR [id number] ity o f [facility] 2020-07-19 2020-07-19 Outpatient [facility] [id number] Univers 11:00:00 11:00:00 BLAIR kingy o f [facility] 2020-07-19 2020-07-19 Orders Doctor KIERA 1.2.840.114 [id number] Univers 00:00:00 00:00:00 Only Unassigned, CALE 350.1.13.10 ity of [facility] 4.2.7.2.686 Darío as [phone] [facility] [address] [place] 2020-07-15 2020-07-15 Telephone [facility] [id number] Univers 00:00:00 00:00:00 Blair Valdez 350.1.13.10 [place] [phone] [address] 2020-07-15 2020-07-15 Telephone Argenis Gaines [id number] Univers 00:00:00 00:00:00 Valente [place] 350.1.13.10 it y of [facility] 4.2.7.2.686 Darío as [phone] [facility] [address] [place] 2020-07-02 2020-07-02 [facility]phone [facility] [id number] Univers 00:00:00 00:00:00 Valente [place] 350.1.13.10 i [place] [phone] [address] 2020-06-01 2020-06-01 [facility] 1.2.840.114 [id number] Univers 13:36:20 14:19:54 Visit Valente [place] 350.1.13.10 i ty [place] [phone] [address] 2020-06-01 2020-06-01 [facility] [id number] -[id number] Univers 13:40:00 13:40:00 VALENTE [id number] ity [facility] 2020-06-01 2020-06-01 Outpatient R [facility] [id number] Univers 13:40:00 13:40:00 VALENTE ity [facility] 2020-06-01 2020-06-01 Telephone [facility] [id number] Univers 00:00:00 00:00:00 Valente Edvin 350.1.13.10 i [place] [phone] [address] 2020-06-01 2020-06-01 Orders Doctor KIERA 1.2.840.114 [id number] Univers 00:00:00 00:00:00 Only Unassigned, CALE 350.1.13.10 ity of [place] [facility] 4.2.7.2.686 [place]ío as [phone] [address] 2020-05-14 2020-05-14 Outpatient R [facility] [id number]-20 Univers 10:45:00 10:45:00 EILEEN [id number] christiney o f [facility] 2020-05-14 2020-05-14 Outpatient R [facility] [id number] Univers 10:45:00 10:45:00 EILEEN kingy o f [facility] 2020-05-13 2020-05-13 Telephone [facility] [id number] Univers 00:00:00 00:00:00 Blair Valdez 350.1.13.10 [place] [phone] [address] 2020-05-09 2020-05-09 Telephone [facility] [id number] Univers 00:00:00 00:00:00 Blair Valdez 350.1.13.10 it[place] [phone] [place] [address] [facility] 2020-04-23 2020-04-23 Telephone [facility] [id number] Univers 00:00:00 00:00:00 Blair Valdez 350.1.13.10 it[place] [phone] [address] 2020-04-09 2020-04-09 [facility] [id number]-20 Univers 10:00:00 10:00:00 EILEEN [id number] sergio jerez [facility] 2020-04-09 2020-04-09 [facility] [id number] Univers 10:00:00 10:00:00 EILEEN jerez [facility] 2020-03-26 2020-03-26 Orders Doctor KIERA 1.2.840.114 [id number] Univers 00:00:00 00:00:00 Only Unassigned, CALE 350.1.13.10 ity of [place] [facility] 4.2.7.2.686 Darío as [phone] [address] 2020-03-17 2020-03-17 Telephone [facility] [id number] Univers 00:00:00 00:00:00 Blair Valdez 350.1.13.10 it[place] [phone] Nj dicky nal 9 [facility] 2020-01-12 2020-03-14 Telemedici [facility] 1.2.840.114 [id number] Univers 08:28:45 20:11:05 ne Visit Blair Valdez 350.1.13.10 ity of [place] [phone] Nj dical [address] 2020-03-12 2020-03-12 [facility], [facility] Vascular Room 1 [facility] 1.2.840.114 [id number] Univers 08:03:53 09:03:53 Visit Blair Lorenzo 350.1.13.10 it[place] of [place] [phone] [address] 2020-03-12 2020-03-12 [facility] [employer], [facility] Vascular Room 1 [facility] 1.2.840.114 [id number] Univers 08:03:04 09:03:04 Visit Blair Lorenzo 350.1.13.10 it[place] of [place] [phone] [address] 2020-03-12 2020-03-12 Outpatient R [facility] [id number] Univers 09:00:00 09:00:00 ity of [facility] 2020-03-12 2020-03-12 Outpatient R [facility] [id number] Univers 08:00:00 08:00:00 [id number] ity of [facility] 2020-03-12 2020-03-12 Outpatient R [facility] [id number] Univers 08:00:00 08:00:00 ity of [facility] 2020-03-09 2020-03-09 Laboratory Pc, [facility] Echo Room [address] [place] [address] 1 .2.840.114 [id number] Univers 09:57:31 10:57:31 Only Blair Lorenzo 350.1.13.10 it[place] of [place] [phone] [address] 2020-03-09 2020-03-09 Outpatient R [facility] [id number] Univers 10:00:00 10:00:00 [id number] ity of [facility] 2020-03-09 2020-03-09 Outpatient R [facility] [id number] Univers 10:00:00 10:00:00 ity of [facility] 2020-03-08 2020-03-08 Outpatient R [facility] [id number] -[id number] Univers 08:00:00 08:00:00 [id number] [facility] 2020-01-12 2020-01-12 Outpatient Naomy LORENZO [facility] [id number] -[id number] Univers 13:20:00 13:20:00 BLAIR [id number] sergio jerez [facility] 2020-01-12 2020-01-12 Outpatient Naomy LORENZO [facility] [id number] Univers 13:20:00 13:20:00 BLAIR jerez [facility] Results Test Description Test Time Test Comments Results Result Comments Source COVID-19 (ID NOW RAPID TESTING) 2021-03-14 19:25:39 Test Item Value Reference Range Interpretation Comme nts SARS-CoV-2 Rapid ID NOW (test code Not Detected Not Detected = 90732-7) PETRA (test code = PETRA) ID NOW COVID-19 Assay is an isothermal nucleic acid amplification test intended for the qualitative detection of nucleic acid from SARS-CoV-2 viral RNA in nasopharyngeal (FIBERGLASS CONTAINER WINDING OPERATOR) specimens. It is used under Emergency Use [...] indicated. Lab Interpretation (test code = Normal 58691-4) [facility] [id number] 19:24:38 Test Item Value Reference Range Interpretation Comments TROPONIN I (test 0.004 ng/mL See_Comment [Automated code = 8727002271) message] The system which generated this result [...] ? Lab Interpretation Normal (test code = 82103-8) [facility] 19:22:20 Test Item Value Reference Range Interpretation Comments APTT Patient (test See_Comment [Automat ed code = 3173-2) message] The system which generated this result transmitted reference range : 23 - 38 Seconds . The reference range was not used to interpr et this result as normal/abnormal . PETRA (test code = PETRA) The [facility] patient population mean normal value for aPTT is 30 seconds. Lab Interpretation Normal (test code = 72802-6) [facility] with [id number] 19:20:59 Test Item Value Reference Range Interpretation Comments WBC (test code = See_Comment H [Automated 8490-2) message] The system which generated this result [...] RDW-SD (test code = 46.9 fL 38.5-51.6 51473-0) RDW-CV (test code = 15.6 % 12.1-15.4 H 788-0) PLT (test code = See_Comment [Automated 777-3) message] The system which generated this result transmit thanh reference range : 150 - 328 10*3/ ?L. The reference range was not u sed to interpret th is result as normal/abnormal . MPV (test code = 10.0 fL 9.8-13.0 83883-1) NRBC/100 WBC (test See_Comment [Automat ed code = 8663742844) message] The system which generated this result transmit thanh reference range : 0.0 - 10.0 /100 WBCs. The reference range was not used to interpret this result as normal/abnormal . NRBC x10^3 (test code <0.01 See_Comment [Auto mated = 0945112882) message] The system which generated this result transmit thanh reference range : 10*3/?L. The reference range was not used to interpret this result as normal/abnormal . GRAN MAT (NEUT) % 77.3 % (test code = 770-8) IMM GRAN % (test code 0.70 % = 5190846682) LYMPH % (test code = 14.7 % 736-9) MONO % (test code = 4.8 % 5905-5) EOS % (test code = 1.7 % 713-8) BASO % (test code = 0.8 % 706-2) GRAN MAT x10^3(ANC) 10.16 10*3/uL 1.99-6.95 H (test code = 8337425590) IMM GRAN x10^3 (test 0.09 10*3/uL 0.00-0.06 H code = 7198933231) LYMPH x10^3 (test code 1.94 10*3/uL 1.09-3.23 = 731-0) MONO x10^3 (test code 0.63 10*3/uL 0.36-1.02 = 742-7) EOS x10^3 (test code = 0.23 10*3/uL 0.06-0.53 711-2) BASO x10^3 (test code 0.11 10*3/uL 0.01-0.09 H = 704-7) Lab Interpretation Abnormal (test code = 90861-4) [facility] (PT) / [id number] 19:20:18 Test Item Value Reference Range Interpretation Comments PROTIME PATIENT (test See_Comment [Auto mated message] code = 5964-2) The system Identified generated this result transmitted ref erence range: 12.0 - 1 4.7 Seconds. The re ference range was not u sed to interpret this result as normal/abnor mal. INR (test code = 6301-6) Nor mal INR <1.1; Warfarin Therap eutic range 2.0 to 3. 0 or 2.5 to 3.5, dep ending upon the indica tions. Lab Interpretation (test Normal code = 74910-5) [facility] Met[facility] (NA, K, CL, CO2, GLUCOSE, BUN, CREATININE, CA)2021-03-14 19:13:17 Test Item Value Reference Range Interpretation Comments NA (test code = 138 mmol/L 135-145 7625981100) K (test code = 4.5 mmol/L 3.5-5.0 8343477838) CL (test code = 109 mmol/L 98-108 H 4833017316) CO2 TOTAL (test code = 21 mmol/L 23-31 L 4419498933) AGAP (test code = 2-16 3159112862) BUN (test code = 18 mg/dL 7-23 8582662903) GLUCOSE (test code = 115 mg/dL 70-110 H 2394026999) CREATININE (test code = 1.12 mg/dL 0.60-1.25 0519996031) CALCIUM (test code = 8.8 mg/dL 8.6-10.6 5997697356) eGFR (test code = mL/min/1.73m2 7746727975) PETRA (test code = PETRA) Association of [...] tests). Lab Interpretation Abnormal (test code = 60130-0) [facility] (ALB, T.PRO, BILI T, BU/BC, ALT, AST, ALK PHOS)2021-03-14 19:13:17 Test Item Value Reference Range Interpretation Comments TOTAL BILI (test code = 5158969553) 0.4 mg/dL 0.1-1.1 BILI UNCON (test code = 4127241726) 0.3 mg/dL 0.1-1.1 BILI CONJ (test code = 7658351745) 0.0 mg/dL 0.0-0.3 T PROTEIN (test code = 9211258628) 6.5 g/dL 6.3-8.2 ALBUMIN (test code = 1396730095) 3.6 g/dL 3.5-5.0 ALK PHOS (test code = 2097185802) 73 U/L 34-122 ALTv (test code = 1742-6) 12 U/L 5-50 AST(SGOT) (test code = 9636073034) 16 U/L 13-40 Lab Interpretation (test code = Normal 12786-9) [facility]2021[facility] 19:13:17 Test Item Value Reference Range Interpretation Comments LIPASE (test code = 1581407941) 155 U/L 0-220 Lab Interpretation (test code = Normal 73105-9) [facility]OLIC [id number] 12:34:00 Test Item Value Reference Range Interpretation [...] RECOLLECTION NEEDED ON 12/19/18 AT 1151 BY [email or web address]: HEMOLYZEDNOTIFIED PATIENT CARE STAFF:[id number] 12:34:00 Test Item Value Reference Range Interpretation Comments MAGNESIUM (test code = MAG) 1.8 MG/DL 1.6-2.3 N RECOLLECTION NEEDED ON 12/19/18 AT 1151 BY [id number]: HEMOLYZEDNOTIFIED PATIENT CARE STAFF:DAVIDTPROTHROMBIN [id number] 12:10:00 Test Item Value Reference Range Interpretation [...] syste andrew embolism. 3.0 - 4.5 PTT [id number] 12:10:00 Test Item Value Reference Range Interpretation Comments PTT ACTIVATED (test code = APTT) 25.7 SECONDS 22.0-33.0 N CBC W/AUTO [id number] 11:41:00 Test Item Value Reference Range Interpretation [...]
[2021-10-02 04:26] LABS: Absolute Lymphocytes (CBC) 2.1 K/uL (0.7-4.9); Hematocrit 24.3 % (39.6-49.0); Lymphocytes % 19.8 % (15.3-44.8); MPV 7.5 fL (7.6-11.3); RBC Red Blood Cell Count 3.25 M/uL (4.33-5.43)
[2021-10-02 04:43] LABS: ALT/SGPT 15 U/L (12-78); AST/SGOT 8 U/L (15-37); Albumin 2.8 g/dL (3.4-5.0); Alkaline Phosphatase 44 U/L (45-117); BUN Blood Urea Nitrogen 33 mg/dL (7-18); Bicarbonate 18 mmol/L (21-32); Bilirubin Direct < 0.1 mg/dL (0-0.2); Bilirubin Total 0.1 mg/dL (0.2-1.0); Glucose Level 92 mg/dL (74-106); Magnesium 2.4 mg/dL (1.8-2.4); NT PRO-BNP 830 pg/mL (<125); Potassium 4.4 mmol/L (3.5-5.1); Protein, Total 6.3 g/dL (6.4-8.2); Sodium Level 141 mmol/L (136-145); Troponin (Emerg Dept Use Only) < 0.02 ng/mL (0.0-0.045)
[2021-10-02] MEDS ORDERED: MORPHINE 4 MG/ML SYR ONE (05:33)
[2021-10-02] MEDS ORDERED: ONDANSETRON 4 MG/2 ML VIAL ONE (05:33)
[2021-10-02] MEDS ORDERED: NA CHLORIDE 0.9% 1,000 ML ONE ×2 (07:28→08:18)
[2021-10-02] MEDS ORDERED: PANTOPRAZOLE 40MG TABLET PO ONE (08:18)
[2021-10-02] MEDS ORDERED: HYDROMORPHONE HCL 1 MG/ML INJ ONE (08:18)
[2021-10-02] MEDS ORDERED: PIPERACIL/TAZO 3.375 GM VIAL IV ONE (08:19)
[2021-10-02] MEDS ORDERED: NA CHLORIDE 0.9% 250 ML ONE (08:19)
[2021-10-02] MEDS ORDERED: INSULIN GLARGINE 100 UNIT/ML SQ ONE (08:25)
[2021-10-02] MEDS ORDERED: METOPROLOL TAR 25 MG TAB ONE (08:26)
[2021-10-02] MEDS ORDERED: ARIPiprazole 5 MG TAB ONE (08:26)
[2021-10-02] MEDS ORDERED: FAMOTIDINE 20 MG TAB ONE (08:27)
--- NOTE | 2021-10-02 09:21 | EDPHYS ---
Physician Documentation [facility] Name: Alexander Bowman Age: 61 yrs Sex: Male : 1960 Arrival Date: 10/02/2021 Time: 04:00 Bed 2 Private MD: ED Physician Miriam Collins HPI: 10/02 09:14 This 61 yrs old Male presents to ER via EMS with complaints of Epigastric abdominal ma2 pain. 09:14 Onset: gradually, 2 day(s) ago. Associated signs and symptoms: Pertinent negatives: ma2 cough, headache, lightheadedness, nausea, vomiting. Severity of pain: At its worst the pain was moderate in the emergency department the pain is unchanged. Patient here with epigastric abdominal pain, for 3 days, he did had epigastric abdominal pain in the past, saw GI doctor Dr. Tapia in the past never had endoscopy, was also seen in our ER for epigastric pain and given PPI for a month, which he took. Patient denies vomiting, no hematemesis or bleeding, he also states that he does not look at his stool and does not know if it is changing color or getting darker than usual. Of note patient also stated he had chest pain, he thinks that his ICD might have fired as well. He has no chest pain at this time.. Historical: - Allergies: 04:24 Aspirin; sm5 04:24 Codeine; sm5 04:24 Levofloxacin; sm5 04:24 mycins; sm5 04:24 PENICILLINS; sm5 04:24 Sulfa (Sulfonamide Antibiotics); sm5 04:24 Tylenol-Codeine #3; sm5 04:24 Ibuprofen; sm5 - Home Meds: 09:47 omeprazole 40 mg Oral cpDR 1 cap once daily [Active]; pravastatin 20 mg oral tab 1 tab esposito once daily [Active]; metronidazole 500 mg Oral tab 1 tab 3 times per day [Active]; Imdur 60 mg Oral Tb24 1 tab once daily [Active]; Robaxin 500 mg Oral tab TID [Active]; Aldactone 25 mg Oral tab 1 tab once daily [Active]; 09:54 Advair Diskus 100-50 mcg/dose Inhl dsdv 1 puff 2 times per day [Active]; Spiriva with esposito HandiHaler 18 mcg inhalation CpDv [Active]; Saphris 5 mg sublingual subl 1 tab 2 times per day [Active]; Viibryd 40 mg oral tab [Active]; Dulera 100-5 mcg/actuation inhalation HFAA [Active]; Nitrostat 0.4 mg SL subl 1 tab every 5 minutes [Active]; fluticasone furoate 27.5 mcg/actuation nasal spsn [Active]; - PMHx: 04:24 Anxiety; COPD; Hypertension; Myocardial infarction; Pneumonia; Pneumothorax; sm5 - PSHx: 04:24 18" bowel removal; Stented artery; sm5 - Immunization history:: Client reports having NOT received the Covid vaccine. - Social history:: Smoking status: Patient/guardian denies using tobacco, the patient reports quitting approximately 9 years ago, Patient/guardian denies using alcohol, street drugs, The patient lives with family. - Family history:: not pertinent. ROS: 09:14 Constitutional: Negative for fever, chills, and weight loss. ma2 09:14 All other systems are negative. Exam: 09:14 Constitutional: This is a well developed, well nourished patient who is awake, alert, ma2 and in no acute distress. Head/Face: Normocephalic, atraumatic. Eyes: Pupils equal round and reactive to light, extra-ocular motions intact. Lids and lashes normal. Conjunctiva and sclera are non-icteric and not injected. Cornea within normal limits. Periorbital areas with no swelling, redness, or edema. ENT: Nares patent. No nasal discharge, no septal abnormalities noted. Tympanic membranes are normal and external auditory canals are clear. Oropharynx with no redness, swelling, or masses, exudates, or evidence of obstruction, uvula midline. Mucous membranes moist. Neck: Trachea midline, no thyromegaly or masses palpated, and no cervical lymphadenopathy. Supple, full range of motion without nuchal rigidity, or vertebral point tenderness. No Meningismus. Chest/axilla: ICD in left upper chest, and good condition dry no swelling or tenderness. Otherwise normal chest wall appearance and motion. Nontender with no deformity. No lesions are appreciated. Cardiovascular: Regular rate and rhythm with a normal S1 and S2. No gallops, murmurs, or rubs. Normal PMI, no JVD. No pulse deficits. Respiratory: Lungs have equal breath sounds bilaterally, clear to auscultation and percussion. No rales, rhonchi or wheezes noted. No increased work of breathing, no retractions or nasal flaring. Abdomen/GI: Soft, non-tender, with normal bowel sounds. No distension or tympany. No guarding or rebound. No evidence of tenderness throughout. Back: No spinal tenderness. No costovertebral tenderness. Full range of motion. MS/ Extremity: Pulses equal, no cyanosis. Neurovascular intact. Full, normal range of motion. Neuro: Awake and alert, GCS 15, oriented to person, place, time, and situation. Cranial nerves II-XII grossly intact. Motor strength 5/5 in all extremities. Sensory grossly intact. Cerebellar exam normal. Normal gait. Vital Signs: 04:22 BP 126 / 76; Pulse 76; Resp 14; Pulse Ox 100% on R/A; Weight 86.64 kg; Height 6 ft. sm5 (182.88 cm); Pain 10/10; 04:58 BP 126 / 76; Pulse 71; Resp 18; Pulse Ox 99% on R/A; mk 05:58 BP 125 / 86; Pulse 92; Resp 18; Pulse Ox 96% on R/A; mk 07:48 BP 106 / 64; Pulse 64; Resp 20; Temp 97.9(TE); Pulse Ox 100% on R/A; Pain 10/10; tw2 08:36 BP 113 / 73; Pulse 62; Resp 18; Pulse Ox 98% ; esposito 04:22 Body Mass Index 25.90 (86.64 kg, 182.88 cm) sm5 [facility] Coma Score: 04:58 Eye Response: spontaneous(4). Verbal Response: oriented(5). Motor Response: obeys mk commands(6). Total: 15. 05:58 Eye Response: spontaneous(4). Verbal Response: oriented(5). Motor Response: obeys mk commands(6). Total: 15. MDM: 09:14 Differential diagnosis: abnormal EKG, acute pericarditis, anxiety, chest wall pain, ma2 gastritis, gastroesophageal reflux disease (GERD). Data reviewed: vital signs, nurses notes, EMS record. Counseling: I had a detailed discussion with the patient and/or guardian regarding: the historical points, exam findings, and any diagnostic results supporting the discharge/admit diagnosis, the presence of at least one elevated blood pressure reading (>120/80) during this emergency department visit, lab results, radiology results, the need to transfer to another facility. ED course: 7 years old male with epigastric pain, exams unremarkable, vital signs has been within normal limits throughout his stay in the ER. Given pain medication morphine and Zofran, still in pain so I gave him Dilaudid after few hours. Lab work shows unremarkable including troponin is negative. ICD was interrogated in our ER and it shows no shock was delivered, or any abnormal or unusual unusual event. I discussed with hospitalist, Dr. Kd Lui, and he advised that looking at previous chart shows blood work hemoglobin was more than 10 a month ago, hemoglobin today is 7, given this drop in hemoglobin, and the presence of epigastric pain with no prior endoscopy patient needs GI evaluation for possible endoscopy. Since we do not have GI services available in this hospital today or tomorrow we will transfer patient to higher level of care for GI service, emergently. I attempted to call Dr. Tapia and Dr. Costa both GI doctors, however I received no answer or call back from their cell phones. And we do not have GI on-call in our hospital.. 09:20 Patient medically screened. ma2 10/02 04:00 Order name: Basic Metabolic Panel; Complete Time: 04:44 10/02 04:00 Order name: CBC with Diff; Complete Time: 06:51 10/02 04:00 Order name: LFT's; Complete Time: 06:51 10/02 04:00 Order name: Magnesium; Complete Time: 06:51 10/02 04:00 Order name: NT PRO-BNP; Complete Time: 06:51 10/02 04:00 Order name: PT-INR; Complete Time: 06:51 10/02 04:00 Order name: Troponin (emerg Dept Use Only); Complete Time: 06:51 10/02 04:00 Order name: XRAY Chest (1 view) 10/02 09:11 Order name: SARS-COV-2 RT PCR (Document "Date of Onset" if Symptomatic); Complete Time: eb 11:24 10/02 04:00 Order name: EKG; Complete Time: 04:01 10/02 04:00 Order name: Cardiac monitoring; Complete Time: 05:00 10/02 04:00 Order name: EKG - Nurse/Tech; Complete Time: 05:00 10/02 04:01 Order name: IV Saline Lock; Complete Time: 05:00 10/02 04:01 Order name: Labs collected and sent; Complete Time: 05:00 10/02 04:01 Order name: O2 Per Protocol; Complete Time: 05:00 10/02 04:01 Order name: O2 Sat Monitoring; Complete Time: 05:00 Administered Medications: 05:38 Drug: morphine 4 mg Route: IVP; Site: right antecubital; sm5 08:06 Follow up: Response: No adverse reaction esposito 05:38 Drug: Zofran (Ondansetron) 4 mg Route: IVP; Site: right antecubital; 5 08:06 Follow up: Response: No adverse reaction esposito 07:48 Drug: NS 0.9% 1000 ml Route: IV; Rate: 125 ml/hr; Site: right antecubital; tw2 08:30 Drug: Pantoprazole 40 mg Route: PO; esposito 08:30 Follow up: Response: No adverse reaction esposito 08:30 Drug: Dilaudid (HYDROmorphone) 1 mg Route: IVP; Site: right antecubital; esposito 08:30 Follow up: Response: No adverse reaction esposito Disposition Summary: 10/02/21 09:20 Transfer Ordered Transfer Location: [facility] ma2 Reason: Higher level of care ma2 Condition: Stable ma2 Problem: new ma2 Symptoms: are unchanged ma2 Accepting Physician: Dr. Salas(10/02/21 11:33) esposito Diagnosis - Epigastric abdominal tenderness ma2 - Upper abdominal pain, unspecified ma2 Forms: - Medication Reconciliation Form ma2 - SBAR form ma2 Signatures: Dispatcher [employer] EDMS Robson Guillen MD MD kdr Attema, Lee, GANG HEMSTITCHING MACHINE OPERATOR-C GANG HEMSTITCHING MACHINE OPERATOR-Cla1 Roseanna Mireles RN RN tw2 Miriam Collins MD MD ma2 Mazur, Sarah, RN RN 5 Julianne Coreas RN RN esposito Corrections: (The following items were deleted from the chart) 09:45 09:20 osh ma2 ma2 11:33 09:45 Dr. Salas ma2 esposito
--- NOTE | 2021-10-02 09:21 | ER ---
Nurse's Notes [facility] Name: Alexander Bowman Age: 61 yrs Sex: Male : 1960 Arrival Date: 10/02/2021 Time: 04:00 Bed 2 Private MD: Diagnosis: Epigastric abdominal tenderness;Upper abdominal pain, unspecified Presentation: 10/02 04:22 Chief complaint: EMS states: pt woke up from his sleep to his defibrillator going off. sm5 defibrillator still going off here in ed. Coronavirus screen: Vaccine status: Patient reports being unvaccinated. Ebola Screen: No symptoms or risks identified at this time. Initial Sepsis Screen: Does the patient meet any 2 criteria? No. Patient's initial sepsis screen is negative. Does the patient have a suspected source of infection? No. Patient's initial sepsis screen is negative. Risk Assessment: Do you want to hurt yourself or someone else? Patient reports no desire to harm self or others. Onset of symptoms was October 02, 2021. 04:22 Method Of Arrival: EMS [facility] 04:22 Acuity: JACEY 2 5 Triage Assessment: 04:26 General: Appears in no apparent distress. Behavior is cooperative, appropriate for age. 5 Pain: Complains of pain in chest. Neuro: No deficits noted. Level of Consciousness is awake, alert, Oriented to person, place, time, situation. Cardiovascular: Reports defibrillator shock Capillary refill < 3 seconds Patient's skin is warm and dry. Rhythm is sinus rhythm. Respiratory: No deficits noted. Airway is patent Trachea midline Respiratory effort is even, unlabored. GI: Reports nausea. Historical: - Allergies: 04:24 Aspirin; sm5 04:24 Codeine; sm5 04:24 Levofloxacin; sm5 04:24 mycins; sm5 04:24 PENICILLINS; sm5 04:24 Sulfa (Sulfonamide Antibiotics); sm5 04:24 Tylenol-Codeine #3; sm5 04:24 Ibuprofen; 5 - Home Meds: 09:47 omeprazole 40 mg Oral cpDR 1 cap once daily [Active]; pravastatin 20 mg oral tab 1 tab esposito once daily [Active]; metronidazole 500 mg Oral tab 1 tab 3 times per day [Active]; Imdur 60 mg Oral Tb24 1 tab once daily [Active]; Robaxin 500 mg Oral tab TID [Active]; Aldactone 25 mg Oral tab 1 tab once daily [Active]; 09:54 Advair Diskus 100-50 mcg/dose Inhl dsdv 1 puff 2 times per day [Active]; Spiriva with esposito HandiHaler 18 mcg inhalation CpDv [Active]; Saphris 5 mg sublingual subl 1 tab 2 times per day [Active]; Viibryd 40 mg oral tab [Active]; Dulera 100-5 mcg/actuation inhalation HFAA [Active]; Nitrostat 0.4 mg SL subl 1 tab every 5 minutes [Active]; fluticasone furoate 27.5 mcg/actuation nasal spsn [Active]; - PMHx: 04:24 Anxiety; COPD; Hypertension; Myocardial infarction; Pneumonia; Pneumothorax; sm5 - PSHx: 04:24 18" bowel removal; Stented artery; sm5 - Immunization history:: Client reports having NOT received the Covid vaccine. - Social history:: Smoking status: Patient/guardian denies using tobacco, the patient reports quitting approximately 9 years ago, Patient/guardian denies using alcohol, street drugs, The patient lives with family. - Family history:: not pertinent. Screenin:25 Abuse screen: Denies threats or abuse. Denies injuries from another. Nutritional sm5 screening: No deficits noted. Tuberculosis screening: No symptoms or risk factors identified. Fall Risk No fall in past 12 months (0 pts). No secondary diagnosis (0 pts). IV access (20 points). Ambulatory Aid- None/Bed Rest/Nurse Assist (0 pts). Gait- Normal/Bed Rest/Wheelchair (0 pts) Mental Status- Oriented to own ability (0 pts). Total Love Fall Scale indicates No Risk (0-24 pts). Assessment: 04:52 Reassessment: Patient appears in no apparent distress at this time. General: Appears in mk no apparent distress. distressed, Behavior is calm, cooperative. Pain: Denies pain. Neuro: Level of Consciousness is awake, alert, obeys commands, Oriented to person, place, time, situation, Salvage Clerk are equal bilaterally Moves all extremities. Speech is normal, Facial symmetry appears normal. 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 Pulses are 2+ in right radial artery, right dorsalis pedis artery, left radial artery and left dorsalis pedis artery Rhythm is ventricular pacer. Respiratory: Breath sounds are clear. GI: Abdomen is flat, non-distended. GI: Bowel sounds present X 4 quads. Abd is soft and non tender X 4 quads. GI: Abd is soft and non tender. : : No signs and/or symptoms were reported regarding the genitourinary system. Derm: Skin is intact, is healthy with good turgor. Musculoskeletal: Capillary refill < 3 seconds, fingers. toes. Range of motion: intact in all extremities. 05:50 Reassessment: No changes from previously documented assessment. Patient and/or family mk updated on plan of care and expected duration. Pain level reassessed. Patient is alert, oriented x 3, equal unlabored respirations, skin warm/dry/pink. 07:49 Reassessment: pt reports "epigastric pain 10/10", provider notified. tw2 Vital Signs: 04:22 BP 126 / 76; Pulse 76; Resp 14; Pulse Ox 100% on R/A; Weight 86.64 kg; Height 6 ft. sm5 (182.88 cm); Pain 10/10; 04:58 BP 126 / 76; Pulse 71; Resp 18; Pulse Ox 99% on R/A; mk 05:58 BP 125 / 86; Pulse 92; Resp 18; Pulse Ox 96% on R/A; mk 07:48 BP 106 / 64; Pulse 64; Resp 20; Temp 97.9(TE); Pulse Ox 100% on R/A; Pain 10/10; tw2 08:36 BP 113 / 73; Pulse 62; Resp 18; Pulse Ox 98% ; esposito 04:22 Body Mass Index 25.90 (86.64 kg, 182.88 cm) sm5 Marty Coma Score: 04:58 Eye Response: spontaneous(4). Verbal Response: oriented(5). Motor Response: obeys mk commands(6). Total: 15. 05:58 Eye Response: spontaneous(4). Verbal Response: oriented(5). Motor Response: obeys mk commands(6). Total: 15. ED Course: 04:00 Patient arrived in ED. la1 04:18 Robson Guillen MD is Attending Physician. kdr 04:22 Clover Brooke, RN is Primary Nurse. sm5 04:24 Triage completed. sm5 04:26 Arm band placed on right wrist. sm5 04:26 Patient has correct armband on for positive identification. Bed in low position. Call sm5 light in reach. Side rails up X2. monitoring tech on. Pulse ox on. NIBP on. 04:55 XRAY Chest (1 view) In Process Unspecified. EDMS 05:15 Inserted saline lock: 18 gauge in left antecubital area, using aseptic technique. mk 05:15 Inserted saline lock: 20 gauge in right antecubital area, using aseptic technique. mk 07:10 Attending Physician role handed off by Robson Guillen MD ma2 07:10 Miriam Collins MD is Attending Physician. ma2 07:44 Primary Nurse role handed off by Clover Brooke RN tw2 07:44 Roseanna Mireles RN is Primary Nurse. tw2 09:08 initiated a transfer with Joselyn from the [facility] Transfer Center at the request of the eb patient. 09:15 per Joselyn all four [facility] campuses are at med/surg , tele, and ICU saturation and will eb have to decline the patient in transfer. 09:16 initiated a transfer with Mary Jung from the [facility] Transfer Center. eb 09:[address] Cunningham the hospitalist nurse practitioner for [facility] with Dr. Collins for eb patient transfer consultation. 09:52 administrative approval given by Mary Jung/ patient has been accepted to [facility] Bed 1561/ Dr. Rimma Randall has accepted the patient in transfer/ report to be called to [phone]. 11:32 No provider procedures requiring assistance completed. Patient transferred, IV remains esposito in place. Administered Medications: 05:38 Drug: morphine 4 mg Route: IVP; Site: right antecubital; sm5 08:06 Follow up: Response: No adverse reaction esposito 05:38 Drug: Zofran (Ondansetron) 4 mg Route: IVP; Site: right antecubital; sm5 08:06 Follow up: Response: No adverse reaction esposito 07:48 Drug: NS 0.9% 1000 ml Route: IV; Rate: 125 ml/hr; Site: right antecubital; tw2 08:30 Drug: Pantoprazole 40 mg Route: PO; esposito 08:30 Follow up: Response: No adverse reaction esposito 08:30 Drug: Dilaudid (HYDROmorphone) 1 mg Route: IVP; Site: right antecubital; esposito 08:30 Follow up: Response: No adverse reaction esposito Outcome: 09:20 ER care complete, transfer ordered by . kendrick 11:32 Transferred to [facility]. esposito 11:32 Condition: good 11:32 Instructed on the need for transfer. 11:33 Patient left the ED. esposito Signatures: Dispatcher [employer] EDMS Robson Guillen MD MD kdr Attema, Chema, METEOROLOGICAL ENGINEER-C METEOROLOGICAL ENGINEER-Cla1 Roseanna Mireles RN RN 2 Miriam Collins MD MD nc2 Mary Salazar Sarah RN RN 5 Au-StageJulianne plata, RN Marlee Gould RN MICHELLE Corrections: (The following items were deleted from the chart) 04:56 04:52 Cardiovascular: Reports Heart tones S1 S2 Capillary refill < 3 seconds fingers mk toes Clubbing of nail beds is absent JVD is absent Patient's skin is warm and dry. 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 Pulses are 2+ in right radial artery, right dorsalis pedis artery, left radial artery and left dorsalis pedis artery Rhythm is ventricular pacer 06:13 05:58 Inserted saline lock: 18 gauge in left antecubital area, using aseptic technique. mk 09:17 09:08 initiated a transfer with Joselyn from the [facility] Transfer Center. eb eb
[2021-10-02 11:42] VITALS: TEMP 97.9
[2021-10-02 11:43] VITALS: BP 113/73; O2SAT 98
--- NOTE | 2021-10-02 12:07 | RAD REPORT ---
EXAM DESCRIPTION: Blake Single View10/02/2021 4:55 am CLINICAL HISTORY: Chest pain COMPARISON: August 2021 FINDINGS: Mild bilateral pulmonary opacities. Heart is normal size. Pacemaker leads in place IMPRESSION: Mild bilateral pulmonary opacities may represent pulmonary edema or pneumonia
== END 2021-10-02 11:33 | disposition short-term general hospital (02) ==
LOC: ER 03:57
DX: R10.816 Epigastric abdominal tenderness (principal); R10.10 Upper abdominal pain, unspecified; I10 Essential (primary) hypertension; J44.9 Chronic obstructive pulmonary disease, unspecified; Z88.0 Allergy status to penicillin; Z88.1 Allergy status to other antibiotic agents; Z88.2 Allergy status to sulfonamides; Z88.5 Allergy status to narcotic agent; Z88.6 Allergy status to analgesic agent; Z20.822 Contact with and (suspected) exposure to COVID-19
CPT/HCPCS: 93005; 85025; 80048; 36415; 83735; 85610; 80076; 84484; 83880; 71045; 96375; 96374; 99285; U0003; J2543; J1170; J7050; J7030 ×2; J2405

== ENCOUNTER 2022-01-16 03:41 | Inpatient (IN) | payer OTHER ==
--- OUTSIDE RECORDS SUMMARY | 2022-01-16 03:48 | XMS REPORT | Continuity of Care Document ---
:1960 Author Organization [facility] t Address [address] [place] [address] Care Team Providers Name Role Phone Jasiel Savannah Primary Care Physician BALDEV Attending Clinician Unavailable ELIEZER Attending Clinician Unavailable Génesis VANN Attending Clinician Unavailable PETE Attending Clinician Unavailable Konrad MACARIO Attending Clinician KONRAD Attending Clinician Unavailable Doctor Unassigned, Name Attending Clinician Unavailable Baldev MACARIO Attending Clinician James MACARIO Attending Clinician Jason Wang MD Attending Clinician [phone] SOLOMON Attending Clinician Unavailable Solomon MACARIO Attending Clinician STEPHANIE Attending Clinician Unavailable Pc, Vascular Room 1 - Attending Clinician Unavailable Pc, Echo Room 1 - Attending Clinician Unavailable ANNEMARIE DE LOS SANTOS Admitting Clinician Unavailable KONRAD Admitting Clinician Unavailable Jason Wang MD Admitting Clinician [phone] Payers Payer Name Policy Type Policy Number Effective Date Expiration Date S [facility] MEDICARE PART A \\T\\ [id number] 2014 B 00:00:00 [employer] [place] [id number] 2014 00:00:00 MEDICARE A B [id number] 2014 00:00:00 MEDICAID [facility] [id number] 2014 00:00:00 MEDICAID [facility] [id number] 2014 00:00:00 MEDICAID [facility] [id number] 2014 00:00:00 Problems Condition Condition Condition Status Onset Resolution Last Treating Co mments Source Name Details Category Date Date Treatment Clinician Date Coronary Coronary Disease Active Unive rs artery artery 06-02 ity of disease disease 00:00: [place] involving involving 00 Medi julieta [place] [facility] coronary coronary artery of artery of [place] heart heart without without angina angina pectoris pectoris Allergies, Adverse Reactions, Alerts Allergy Allergy Status Severity Reaction(s) Onset Inactive Treating Comm ents Source Name Type Date Date Clinician IBUPROFE Allergy Active High [facility]aphylaxis [facility] Aspirin Propensi Active Anaphylaxis 2018-09 Un mateusz [...] ics) s Branch Acetamin Propensi Active Anaphylaxis 2018- U nivers ophen ty to 0-16 ity of adverse 00:00: [place] reaction 00 Medical s Branch ASPIRIN DRUG Active Anaphylaxis 2018- Univ ers INGREDI 0-16 ity of 00:00: [place] 00 Medical Branch CODEINE DRUG Active ITCHING 2018-09 Univers INGREDI 0-16 ity of 00:00: [place] 00 Medical Branch LEVOFLOX DRUG Active SOB 2018-09 Univers ACIN INGREDI 0-16 ity of 00:00: [place] 00 Medical Branch PENICILL Drug Active SOB 2018-09 Univers INS Class 0-16 ity of 00:00: [place] [id number] Medical Branch SULFA Drug Active Swelling 2018-09 Univers (SULFONA Class 0-16 ity of MIDE 00:00: [place] ANTIBIOT 00 Medical ICS) Branch ACETAMIN DRUG Active Anaphylaxis 2018-09 Uni vers OPHEN INGREDI 0-16 ity of 00:00: [place] [address] Medical Branch Penicill DA Active U 2017-09 [facility] 00:[facility]: [address] Sulfa DA Active U 2017-09 [facility] (Sulfona [place] mide 00:00: [place] Antibiot 00 Medical ics) Center codeine DA Active U 2017-09 [facility] 00:[facility]: [address] aspirin DA Active U 2017-09 [facility] 00:[facility]: [address] Center acetamin DA Active U 2017-09 [facility] ophen 00:[facility]: [address] levoflox DA Active U 2017-09 [facility] acin 00:[facility]: [address] ACETAMIN Allergy Active High Anaphylaxis SL [facility] OPHEN 04-29 00:00: 00 LEVOFLOX Allergy Active [facility] ACIN 04-25 00:00: 00 PENICILL Allergy Active [facility] INS 04-25 00:00: 00 SULFA Allergy Active [facility] (SULFONA 04-25 MIDE 00:00: ANTIBIOT 00 ICS) SALICYLA Allergy Active [facility] JUAN 04-25 00:00: 00 CODEINE Allergy Active [facility] 04-25 00:00: 00 Social History Social Habit Start Date Stop Date Quantity Comments Source Exposure to Not sure University of SARS-CoV-2 [facility] (event) Branch History of Snuff User [place] of tobacco use [facility] Alcohol intake 2021-05-19 2021-05-19 Ex-drinker [facility] 00:00:00 00:00:00 (finding) [facility] Tobacco use and 2019-07-09 2019-07-09 Current user Univers ity of exposure 00:00:00 00:00:00 [facility] Sex Ass[birth year] Universit y of 00:00:00 00:00:00 [facility] Smoking Status Start Date Stop Date Source Former smoker 2020-07-19 00:00:00 2020-07-19 00:00:00 [facility] Medical Branch Medications Ordered Filled Start Stop Current Ordering Indication Dosage Frequency Signature Comments Components Source Medication Medication Date Date Medication? Clinician (SIG) Name Name morpHINE 2020- No 2mg 2 mg, Slow Un mateusz injection 2 03-14 IV Push, ity of mg 21:45: 20:45 ONCE, 1 [place] 00 :00 dose, [facility] Medical 03/14/21 at Branch 1645, STAT morpHINE 2020- No 6mg 6 mg, Slow Un mateusz injection 6 03-14 IV Push, ity of mg 20:45: 19:45 ONCE, 1 [place] 00 :00 dose, [facility] 03/14/21 at Branch 1545, STAT ondansetron 2020- No 4mg 4 mg, Slow Univers (ZOFRAN 03-14 IV Push, ity of (PF)) 19:45: 18:41 ONCE, 1 [place] injection 4 00 :00 dose, [facility] Med ical mg 03/14/21 at Branch 1445, KEMAL FENTanyl PF 2020- No 100ug 100 mcg, Univers (SUBLIMAZE 03-14 Slow IV ity o f (PF)) 19:45: 18:41 Push, [place] injection 00 :00 ONCE, 1 Medical 100 mcg dose, [facility] 03/14/21 at 1445, Routine chlordiazeP 2019-09 Yes [...] 500 mg 14 (three) Medical tablet times [place] daily. Dexlansopra 2019-09 Yes Take by Un mateusz zole 0-26 mouth 3 ity of (DEXILANT) 15:56: (three) [place] 60 mg 14 times Medical capsule daily. [place] hydrocodone 2019- Yes Take by Un mateusz [...] 500-50 daily. Branch mcg/dose inhalation disk isosorbide 2019-09 Yes 30mg Take 30 mg [...] daily. Medica l on nasal Branch spray proMETHazin 2019-09 Yes 25mg Take 25 mg Univers e 25 mg 0-26 by mouth ity of tablet 15:56: every 4 [place] 14 (four) Medical hours as Branch needed. Fluticasone 2019- Yes 1{puff} Inhale 1 Univers [...] mouth ity of tablet 15:56: every 4 [place] 14 (four) Medical hours as Branch needed. [...] (four) Medical hours as Branch needed. chlordiazeP 2020- Yes 10mg Take 10 mg [...] 500-50 daily. Branch mcg/dose inhalation disk proMETHazin 2020- Yes 25mg Take 25 mg Univers e [...] (four) Medical hours as Branch needed. chlordiazeP 2020- Yes 10mg Take 10 mg [...] 500-50 daily. Branch mcg/dose inhalation disk proMETHazin 2020-1 Yes 25mg Take 25 mg Univers e [...] Branch ejection daily. fraction) enalapril 2019-09 Yes [id number] 10mg Take 1 U nivers 10 mg 0-26 tablet by ity of tablet 00:00: mouth 2 [place] 00 (two) Medical times Branch daily. enalapril 2019-09 Yes [id number] 10mg Take 1 U nivers 10 mg 0-26 tablet by ity of tablet 00:00: mouth 2 [place] 00 (two) Medical times Branch daily. enalapril 2019-09 Yes [id number] 10mg Take 1 U nivers 10 mg 0-26 tablet by ity of tablet 00:00: mouth 2 [place] 00 (two) Medical times Branch daily. enalapril 2019-09 Yes [id number] 10mg Take 1 U nivers 10 mg 0-26 tablet by ity of tablet 00:00: mouth 2 [place] 00 (two) Medical times Branch daily. enalapril 2019-09 Yes [id number] 10mg Take 1 U nivers 10 mg 0-26 tablet by ity of tablet 00:00: mouth 2 [place] 00 (two) Medical times Branch daily. enalapril 2019-09 Yes [id number] 10mg Take 1 U nivers 10 mg 0-26 tablet by ity of tablet 00:00: mouth 2 [place] 00 (two) Medical times Branch daily. enalapril 2019-09 Yes [id number] 10mg Take 1 U nivers 10 mg 0-26 tablet by ity of tablet 00:00: mouth 2 [place] 00 (two) Medical times Branch daily. enalapril 2020-1 Yes [id number] 10mg Take 1 U nivers 10 mg 0-26 tablet by ity of tablet 00:00: mouth (two) Medical times Branch daily. enalapril 2020-1 Yes [id number] 10mg Take 1 U nivers 10 mg 0-26 tablet by ity of tablet 00:00: mouth (two) Medical times Branch daily. enalapril 2019-1 Yes [id number] 10mg Take 1 U nivers 10 mg 0-26 tablet by ity of tablet 00:00: mouth (two) Medical times Branch daily. enalapril 2020-1 Yes [id number] 10mg Take 1 U nivers 10 mg 0-26 tablet by ity of tablet 00:00: mouth (two) Medical times Branch daily. enalapril 2019- Yes [id number] 10mg Take 1 U nivers 10 mg 0-26 tablet by ity of tablet 00:00: mouth (two) Medical times Branch daily. enalapril 2019- Yes [id number] 10mg Take 1 U nivers 10 mg 0-26 tablet by ity of tablet 00:00: mouth (two) Medical times Branch daily. enalapril 2019-1 Yes [id number] 10mg Take 1 U nivers 10 mg 0-26 tablet by ity of tablet 00:00: mouth (two) Medical times Branch daily. enalapril 2020-1 Yes [id number] 10mg Take 1 U nivers 10 mg 0-26 tablet by ity of tablet 00:00: mouth (two) Medical times Branch daily. enalapril 2020-1 Yes [id number] 10mg Take 1 U nivers 10 mg 0-26 tablet by ity of tablet 00:00: mouth (two) Medical times Branch daily. enalapril 2020-1 Yes [id number] 10mg Take 1 U nivers 10 mg 0-26 tablet by ity of tablet 00:00: mouth (two) Medical times Branch daily. enalapril 2020-1 Yes [id number] 10mg Take 1 U nivers 10 mg [...] 00:00: mouth 2 (two) Medical times Branch daily with meals. carvediloL 2020-0 Yes 3.125mg Take 1 Un mateusz 3.125 mg 7-10 tablet by ity of tablet 00:00: mouth 2 [place] (two) Medical times Branch daily with meals. carvediloL 2020-0 Yes 3.125mg Take 1 Un mateusz 3.125 mg 7-10 tablet by ity of tablet 00:00: mouth 2 (two) Medical times Branch daily with meals. carvediloL 2020-0 Yes 3.125mg Take 1 Un mateusz 3.125 mg 7-10 tablet by ity of tablet 00:00: mouth 2 (two) Medical times Branch daily with meals. [...] 12:47: 00:00 daily. 06 :00 Medical Branch carvediloL 2020-0 Yes 6.25mg Take 1 Uni vers 6.25 mg 6-29 tablet by ity of tablet 00:00: mouth 2 (two) Medical times Branch daily with meals. enalapril 2020-0 Yes 10mg Take 1 Univer s 10 mg 6-29 tablet by ity of tablet 00:00: mouth 2 [place] (two) Medical times Branch daily. carvediloL 2020-0 Yes 6.25mg Take 1 Uni vers 6.25 mg 6-29 tablet by ity of tablet 00:00: mouth 2 (two) Medical times Branch daily with meals. [...] by ity of tablet 00:00: mouth 2 [place] (two) Medical times Branch daily. enalapril 2020-0 Yes 10mg Take 1 Univer s 10 mg 6-29 tablet by ity of tablet 00:00: mouth [place] (two) Medical times Branch daily. enalapril 2020-0 Yes 10mg Take 1 Univer s 10 mg 6-29 tablet by ity of tablet 00:00: mouth 2 [place] 00 (two) Medical times Branch daily. enalapril 2020-0 Yes 10mg Take 1 Univer s 10 mg 6-29 tablet by ity of tablet 00:00: mouth [place] (two) Medical times Branch daily. enalapril 2020-0 Yes 10mg Take 1 Univer s 10 mg 6-29 tablet by ity of tablet 00:00: mouth [place] (two) Medical times Branch daily. enalapril 2020-0 Yes 10mg Take 1 Univer s 10 mg 6-29 tablet by ity of tablet 00:00: mouth [place] (two) Medical times Branch daily. enalapril 2020-0 Yes 10mg Take 1 Univer s 10 mg 6-29 tablet by ity of tablet 00:00: mouth [place] (two) Medical times Branch daily. enalapril 2020-0 2020- No 10mg Take 1 Unive rs 10 mg 6-29 10-26 tablet by ity of tablet 00:00: 00:00 mouth 2 [place] 00 :00 (two) Medical times Branch daily. enalapril 2020-0 2020- No 10mg Take 1 Unive rs 10 mg 6-29 10-26 tablet by ity of tablet 00:00: 00:00 mouth 2 [place] 00 :00 (two) Medical times Branch daily. carvediloL 2020-0 2020- No 6.25mg Take 1 Un mateusz 6.25 mg 6-29 07-10 tablet by ity of tablet 00:00: 00:00 mouth 2 [place] 00 :00 (two) Medical times Branch daily with meals. carvediloL 2020-0 2020- No 6.25mg Take 1 Un mateusz 6.25 mg 6-29 07-10 tablet by ity of tablet 00:00: 00:00 mouth 2 [place] 00 :00 (two) Medical times Branch daily with meals. carvediloL 2020-0 2020- No 6.25mg Take 1 Un mateusz 6.25 mg 6-29 07-10 tablet by ity of tablet 00:00: 00:00 mouth 2 [place] 00 :00 (two) Medical times Branch daily with meals. proMETHazin 2018-09 Yes 25mg Take 25 mg Univers e 25 mg 0-16 by mouth ity of tablet 19:35: every 4 [place] 43 (four) Medical hours as Branch needed. proMETHazin 2018-09 Yes 25mg Take 25 mg Univers e 25 mg 0-16 by mouth ity of tablet 19:35: every 4 [place] 43 (four) Medical hours as Branch needed. proMETHazin 2018-09 Yes 25mg Take 25 mg Univers e 25 mg 0-16 by mouth ity of tablet 19:35: every 4 [place] 43 (four) Medical hours as Branch needed. proMETHazin 2018-09 Yes 25mg Take 25 mg Univers e 25 mg 0-16 by mouth ity of tablet 19:35: every 4 [place] 43 (four) Medical hours as Branch needed. proMETHazin 2018-09 Yes 25mg Take 25 mg Univers e 25 mg 0-16 by mouth ity of tablet 19:35: every 4 [place] 43 (four) Medical hours as Branch needed. proMETHazin 2018-09 Yes 25mg Take 25 mg Univers e 25 mg 0-16 by mouth ity of tablet 19:35: every 4 [place] [address] (four) Medical hours as Branch needed. proMETHazin 2018-09 Yes 25mg Take 25 mg Univers e 25 mg 0-16 by mouth ity of tablet 19:35: every 4 [place] [address] (four) Medical hours as Branch needed. proMETHazin 2018-09 Yes 25mg Take 25 mg Univers e 25 mg 0-16 by mouth ity of tablet 19:35: every 4 [place] 43 (four) Medical hours as Branch needed. proMETHazin 2018-09 Yes 25mg Take 25 mg Univers e 25 mg 0-16 by mouth ity of tablet 19:35: every 4 [place] 43 (four) Medical hours as Branch needed. proMETHazin 2018-09 Yes 25mg Take 25 mg Univers e 25 mg 0-16 by mouth ity of tablet 19:35: every 4 [place] 43 (four) Medical hours as Branch needed. proMETHazin 2018-09 Yes 25mg Take 25 mg Univers e 25 mg 0-16 by mouth ity of tablet 19:35: every 4 [place] 43 (four) Medical hours as Branch needed. [...] mouth ity of tablet 19:35: every 4 [place] 43 (four) Medical hours as Branch needed. [...] mouth ity of tablet 19:35: every 4 [place] 43 (four) Medical hours as Branch needed. proMETHazin 2018-09 Yes 25mg Take 25 mg Univers e 25 mg 0-16 by mouth ity of tablet 19:35: every 4 [place] 43 (four) Medical hours as Branch needed. proMETHazin 2018-09 Yes 25mg Take 25 mg Univers e 25 mg 0-16 by mouth ity of tablet 19:35: every 4 [place] 43 (four) Medical hours as Branch needed. [...] Medical 500-50 daily. Branch mcg/dose inhalation disk hydrocodone 2018-09 Yes Take by Un mateusz /acetaminop 0-16 mouth 4 ity o f hen 19:33: (four) [place] (VICODIN ES 47 times Medical ORAL) daily. [...] mg 47 times Medical capsule daily. Branch enalapril 2018-09 Yes Take by Univ ers 10 mg 0-16 mouth ity of tablet 19:33: daily. [address] chlordiazeP 2018-09 Yes 10mg Take 10 mg Univers OXIDE 10 mg 0-16 by mouth 3 it y of capsule 19:33: (three) [place] 46 times Medical daily. Branch enalapril 2018-09 Yes Take by Univ ers 10 mg 0-16 mouth ity of tablet 19:33: daily. [address] chlordiazeP 2018-09 Yes 10mg Take 10 mg Univers OXIDE 10 mg 0-16 by mouth 3 it y of capsule 19:33: (three) [place] 46 times Medical daily. Branch enalapril 2018-09 Yes Take by Univ ers 10 mg 0-16 mouth ity of tablet 19:33: daily. [address] chlordiazeP 2018-09 Yes 10mg Take 10 mg Univers OXIDE 10 mg 0-16 by mouth 3 it y of capsule 19:33: (three) [place] 46 times Medical daily. Branch enalapril 2018-09 Yes Take by Univ ers 10 mg 0-16 mouth ity of tablet 19:33: daily. [address] chlordiazeP 2018-09 Yes 10mg Take 10 mg Univers OXIDE 10 mg 0-16 by mouth 3 it y of capsule 19:33: (three) [place] 46 times Medical daily. Branch enalapril 2018-09 Yes Take by Univ ers 10 mg 0-16 mouth ity of tablet 19:33: daily. [address] chlordiazeP 2018-09 Yes 10mg Take 10 mg Univers OXIDE 10 mg 0-16 by mouth 3 it y of capsule 19:33: (three) [place] 46 times Medical daily. Branch enalapril 2018-09 Yes Take by Univ ers 10 mg 0-16 mouth ity of tablet 19:33: daily. [address] chlordiazeP 2018-09 Yes 10mg Take 10 mg Univers OXIDE 10 mg 0-16 by mouth 3 it y of capsule 19:33: (three) [place] 46 times Medical daily. Branch enalapril 2018-09 Yes Take by Univ ers 10 mg 0-16 mouth ity of tablet 19:33: daily. [address] chlordiazeP 2018-09 Yes 10mg Take 10 mg Univers OXIDE 10 mg 0-16 by mouth 3 it y of capsule 19:33: (three) [place] 46 times Medical daily. Branch enalapril 2018-09 Yes Take by Univ ers 10 mg 0-16 mouth ity of tablet 19:33: daily. [place] 46 Medical Branch chlordiazeP 2018-09 Yes 10mg Take [...] 3 it y of capsule 19:33: (three) [place] 46 times Medical daily. [place] Vital Signs Vital Name Observation Time Observation Value Comments Source HEIGHT 2021-10-11 13:11:00 190.5 cm WEIGHT 2021-10-11 13:11:00 83.462 kg HEIGHT 2021-10-02 13:00:00 190.5 cm WEIGHT 2021-10-02 13:00:00 91.627 kg HEIGHT 2021-10-02 13:00:00 190.5 cm WEIGHT 2021-10-02 13:00:00 91.627 kg Systolic blood 2021-05-19 19:59:00 116 mm[Hg] Univer sity of pressure [facility] Diastolic blood 2021-05-19 19:59:00 82 mm[Hg] Unive rsity of pressure [facility] Heart rate 2021-05-19 19:59:00 80 /min [facility]i ty [facility] [place] [facility] Body temperature 2021-05-19 19:59:00 36.06 Yoly Univ ersity of [place] [facility] Respiratory rate 2021-05-19 19:59:00 18 /min Univ ersity of [place] [facility] Body height 2021-05-19 19:59:00 182.9 cm Universi ty [facility] [place] [facility] Body weight 2021-05-19 19:59:00 88.179 kg Universi ty [facility] [place] [facility] BMI 2021-05-19 19:59:00 26.37 kg/m2 Universi ty of [place] [facility] Oxygen saturation in 2021-05-19 19:59:00 99 /min University of Arterial blood by [facility] Pulse oximetry Branch Heart rate 2021-03-14 20:40:00 71 /min Universi ty of [place] [facility] Respiratory rate 2021-03-14 20:40:00 20 /min Univ ersity of [place] [facility] Oxygen saturation in 2021-03-14 20:40:00 97 /min University of Arterial blood by [facility] Pulse oximetry Branch Systolic blood 2021-03-14 20:30:00 109 mm[Hg] Univer sity of pressure [place] [facility] Diastolic blood 2021-03-14 20:30:00 71 mm[Hg] Unive rsity of pressure [place] [facility] Body temperature 2021-03-14 18:27:00 36.22 Yoly Univ ersity of [place] [facility] Body weight 2021-03-14 18:27:00 88.451 kg Universi ty [facility] [place] [facility] BMI 2021-03-14 18:27:00 26.45 kg/m2 [facility]i ty [facility] [place] [facility] Systolic blood 2020-07-19 16:03:00 147 mm[Hg] Univer sity of pressure [place] [facility] Diastolic blood 2020-07-19 16:03:00 103 mm[Hg] Unive rsity of pressure [place] [facility] Heart rate 2020-07-19 16:03:00 79 /min Universi ty [facility] [place] [facility] Respiratory rate 2020-07-19 15:58:00 19 /min Univ ersity of [place] [facility] Body height 2020-07-19 15:58:00 182.9 cm Universi ty [facility] [place] [facility] Body weight 2020-07-19 15:58:00 92.942 kg Universi ty [facility] [place] [facility] BMI 2020-07-19 15:58:00 27.79 kg/m2 Universi ty of [facility] Oxygen saturation in 2020-07-19 15:58:00 96 /min University of Arterial blood by [facility] Pulse oximetry Branch Systolic blood 2020-06-01 19:05:00 145 mm[Hg] Univer sity of pressure [facility] Diastolic blood 2020-06-01 19:05:00 99 mm[Hg] Unive rsity of pressure [facility] Heart rate 2020-06-01 19:05:00 86 /min Universi ty of [facility] Body height 2020-06-01 19:05:00 182.9 cm Universi ty of [facility] Body weight 2020-06-01 19:05:00 90.583 kg Universi ty of [facility] BMI 2020-06-01 19:05:00 27.08 kg/m2 Universi ty of [facility] Oxygen saturation in 2020-06-01 19:05:00 99 /min University of Arterial blood by [facility] Pulse oximetry Branch Systolic blood 2020-03-09 15:33:00 149 mm[Hg] Univer sity of pressure [place] [facility] Diastolic blood 2020-03-09 15:33:00 97 mm[Hg] Unive rsity of pressure [facility] Heart rate 2020-03-09 15:33:00 75 /min Universi ty of [facility] Body height 2020-03-09 15:33:00 182.9 cm Universi ty of [place] [facility] [place] Body weight 2020-03-09 15:33:00 90.266 kg Universi ty of [facility] BMI 2020-03-09 15:33:00 26.99 kg/m2 [facility] [place] [facility] Procedures Procedure Date / Time Performing Clinician Source Performed US ABDOMEN LIMITED 2021-08-04 22:00:00 [facility]ENEF[facility] 2021-08-04 20:51:34 Doctor Unassigned, [facility] Name Medical [place] EXTERNAL PROVIDER RECORDS 2021-05-25 05:01:00 Doctor Unassigned, [facility] [place] Medical Branch XR CHEST 1 VW 2021-03-14 18:43:52 Addison Ramirez [place] [facility] CBC WITH DIFF 2021-03-14 18:36:00 Addison Ramirez [facility] COVID-19 (ID NOW RAPID 2021-03-14 18:36:00 Addison Ramirez [facility] TESTING) Medical Branch LIPASE 2021-03-14 18:35:00 Addison Ramirez [facility] TROPONIN I 2021-03-14 18:35:00 Addison Ramirez [facility] HEPATIC FUNCTION PANEL 2021-03-14 18:35:00 Addison Ramirez [facility] ([id number]) (ALB,T.PRO,BILI Medical Branch T,BU/BC,ALT,AST,ALK PHOS) BASIC METABOLIC PANEL 2021-03-14 18:35:[address] [facility] (NA, K, CL, CO2, GLUCOSE, Medica l Branch BUN, CREATININE, CA) PROTHROMBIN TIME / INR 2021-03-14 18:35:00 Addison Ramirez [facility] ACTIVATED PARTIAL 2021-03-14 18:35:00 Addison Ramirez [facility] THRMPLAS CHRISTIANO [facility] MEDICATION CORRESPONDENCE 2021-01-13 05:01:00 Doctor Lexi [facility] Name Medical [place] MEDICATION CORRESPONDENCE 2021-01-13 05:01:00 Doctor Lexi [facility] Name Medical [place] CONSENT/REFUSAL FOR 2020-07-19 15:38:32 Doctor Lexi [facility] DIAGNOSIS AND TREATMENT [place] Medical [place] AUTHORIZATION TO RELEASE 2020-06-01 05:01:00 Doctor Elliott [facility] PHI TO [facility] [place] [facility] [place] EXTERNAL PROVIDER - ADC 2020-03-26 05:01:00 Doctor Lexi [facility] CARDIOLOGY [place] [facility] [place] Plan of Care Planned Activity Planned Date Details Comments Source Future Scheduled 2021-07-19 Depression screening [facility] Test 00:00:00 (procedure) [code = Medical Branch [id number]] Future Scheduled 2021-05-[address] [facility] Test 00:00:00 (Season Ended) [code = Medic al Branch INFLUENZA VACCINE (Season Ended)] Future Scheduled 2016 Screening for [facility] Test 00:00:00 malignant neoplasm of Medica l Branch lung (procedure) [code = 397830270] Future Scheduled 2011 Screening for occult Uni [facility] Test 00:00:00 blood in feces Medical Branc h (procedure) [code = 701375083] Future Scheduled 2011 Stool DNA-based [facility] Test 00:00:00 colorectal cancer Medical Br anch screening (procedure) [code = 466808651919529] Future Scheduled 2011 Flexible fiberoptic [facility] Test 00:00:00 sigmoidoscopy Medical Branch (procedure) [code = [id number]] Future Scheduled 2011 Screening for [facility] Test 00:00:00 malignant neoplasm of Medica l Branch colon (procedure) [code = 046502313] Future Scheduled 2011 Screening for [facility] Test 00:00:00 malignant neoplasm of Medica l Branch colon (procedure) [code = 584663410] Future Scheduled 2011 Zoster Recombinant [facility] Test 00:00:00 Vaccine (SHINGRIX) (1 Medica l Branch of 2) [code = Zoster Recombinant Vaccine (SHINGRIX) (1 of 2)] Future Scheduled 1980 DTaP,Tdap,and Td Univers [facility] Test 00:00:00 Vaccines (1 - Tdap) Medical Branch [code = DTaP,Tdap,and Td Vaccines (1 - Tdap)] Future Scheduled 1967 PNEUMOCOCCAL 0-64 [facility] Test 00:00:00 YEARS COMBINED SERIES Medica l Branch (1 of 1 - PPSV23) [code = PNEUMOCOCCAL 0-64 YEARS COMBINED SERIES (1 of 1 - PPSV23)] Future Scheduled 1961 Hepatitis C screening [facility] Test 00:00:00 (procedure) [code = Medical Branch [id number]] Encounters Start End Encounter Admission Attending Care Care Encounter Source Date/Time Date/Time Type Type Clinicians Facility Department ID 2021-07-25 Emergency [facility] [id number] Univers 02:36:54 ity of [facility] 2021-10-19 2021-10-19 Outpatient Naomy LORENZO [facility] [id number] -[id number] Univers 10:20:00 10:20:00 BLAIR [id number] ity o f [facility] 2021-10-19 2021-10-19 Outpatient R BALDEV [facility] [id number] Univers 10:20:00 10:20:00 BOAZJUN sergio o f [facility] 2021-10-11 2021-10-11 Outpatient [facility]ES [facility] [id number] SLEH 13:18:39 13:18:39 EVELIN 2021-10-11 2021-10-[address] [facility] [id number] SLE 00:00:00 00:00:00 SANDRAEVELIN 2021-10-02 2021-10-04 Inpatient ER EDWAR [facility] [id number] SLE 12:35:00 14:04:00 TITILOLA 2021-10-03 2021-10-03 Outpatient [facility] [id number] [facility] 00:00:00 23:59:00 Lynn griffiths of Medicin e 2021-08-10 2021-08-10 Telephone [facility] .2.840.114 [id number] Univers 00:00:00 00:00:00 Tamy PARDO 350.1.13.10 i [facility] 4.2.7.2.686 [facility] [phone] Ms dical NAL [address] [place] [address] 2021-08-04 2021-08-04 [facility] [id number] Univers 14:54:13 23:59:00 TAMY hill [facility] 2021-08-04 2021-08-04 [facility] 1..840.114 [id number] Univers 14:54:13 23:59:00 Encounter Tamy PARDO [facility].13.10 [facility] [place].2.[place] [phone] [facility] [address] 2021-08-04 2021-08-04 [facility] [id number] Univers 00:00:00 00:00:00 T[facility]Y [id number] [facility] 2021-08-04 2021-08-04 Orders Doctor QURESHI 1.2.840.114 [id number] Univers 00:00:00 00:00:00 Only Unassigned, CALE 350.1.13.10 ity of [place] [facility] 4.2.7.2.686 Darío as [phone] [address] 2021-07-29 2021-07-29 Telephone [facility] 1.2.840.114 [id number] Univers 00:00:00 00:00:00 Tamy PARDO 350.1.13.10 i ty of [facility] 4.2.7.2.686 [place] [phone] Ms dical [address] 2021-06-06 2021-06-06 [facility] [id number]-20 Univers 10:15:00 10:15:00 [facility]Y [id number] [facility] 2021-06-06 2021-06-06 [facility] [id number] Univers 10:15:00 10:15:00 TAMY [facility] 2021-05-27 2021-05-27 Out[facility] [id number] Univers 00:00:00 00:00:00 TAMY [id number] [facility] 2021-05-27 2021-05-27 Outpatient [facility] [id number] Univers 00:00:00 00:00:00 TAMY [facility] 2021-05-25 2021-05-25 Orders Doctor QURESHI 1.2.840.114 [id number] Univers 00:00:00 00:00:00 Only UnassignedCALE 350.1.13.10 ity of [place] [facility] 4.2.7.2.686 Darío as [phone] [address] 2021-05-19 2021-05-19 Office [facility] 1.2.985.525 [id number] Univers 14:42:06 16:05:39 Visit Tamy Pardo 350.1.13.10 i [place].2.[place] [phone] Ms dical nal [address] [place] [address] 2021-05-19 2021-05-19 Outpatient [facility] [id number] Univers 14:30:00 16:05:39 TAMY itjoshua [facility] 2021-05-19 2021-05-19 Outpatient R KONRAD [facility] [id number] [id number]-20 Univers 14:45:00 14:45:00 TAMY [id number] ity [facility] 2021-05-17 2021-05-17 Telephone [facility] 1.2.239.362 [id number] Univers 00:00:00 00:00:00 Blair Pardo 350.1.13.10 [place] [phone] Ms dicma nal [address] [place] [address] 2021-03-31 2021-03-31 [facility] 1.2.016.360 [id number] Univers 00:00:00 00:00:00 Blair Pardo 350.1.13.10 [place].2.686 [place] [phone] Ms dical nal [address] [place] [address] 2021-03-14 2021-03-14 Emergency James Addison [facility] 1.2.840. 114 [id number] Univers 13:23:00 16:01:00 Eleuterio Wang 3 50.1.13.10 [place] 4.2.7.2.686 [place] [phone] [address] 2021-01-17 2021-01-17 Outpatient R BALDEV [facility] [id number] Univers 14:00:00 14:00:00 BLAIR [id number] ity o f [facility] 2021-01-17 2021-01-17 [facility] [id number] Univers 14:00:00 14:00:00 BLAIR kingy o f [facility] 2021-01-13 2021-01-13 Orders Doctor QURESHI 1.2.840.114 [id number] Univers 00:00:00 00:00:00 Only Unassigned, CALE 350.1.13.10 ity of [place] [facility] 4.2.7.2.686 Darío as [phone] [facility] [address] 2020-08-02 2020-08-02 Outpatient [facility] [id number] Univers 08:00:00 08:00:00 ity of [facility] 2020-08-02 2020-08-02 [facility] [id number] Univers 08:00:00 08:00:00 SUKHWINDER ity of [facility] 2020-07-19 2020-07-19 Office [facility] 1.2.840.114 [id number] Univers 10:39:13 11:26:38 Visit Blair Pardo 350.1.13.10 [place].7.2.[place] [phone] Ms dical nal 059 [facility] 2020-07-19 2020-07-19 Outpatient R [facility] [id number] Univers 11:00:00 11:00:00 BLAIR [id number] ity o f [facility] 2020-07-19 2020-07-19 Outpatient R [facility] [id number] Univers 11:00:00 11:00:00 BOAZTIMO ity o f [facility] 2020-07-19 2020-07-19 Orders Doctor KIERA 1.2.840.114 [id number] Univers 00:00:00 00:00:00 Only Unassigned, CALE 350.1.13.10 ity of [place] [facility] 4.2.7.2.686 Darío as [phone] [facility] [address] 2020-07-15 2020-07-15 Telephone [facility] 1.2.364.043 [id number] Univers 00:00:00 00:00:00 Blair Pardo 350.1.13.10 [place].2.[place] [phone] Ms dical nal 059 [facility] 2020-07-15 2020-07-15 Telephone Argenis Gaines 1.2.847.271 [id number] Univers 00:00:00 00:00:00 Sukhwinder [place] 350.1.13.10 it y of Hospital 4.2.7.2.686 [place] as [phone] [address] 2020-07-02 2020-07-02 Telephone [facility] 1.2.053.514 [id number] Univers 00:00:00 00:00:00 Sukhwinder [place] 350.1.13.10 i [place] [phone] [address] 2020-06-01 2020-06-01 Office [facility] 1.2.840.114 [id number] Univers 13:36:20 14:19:54 Visit Sukhwinder [place] 350.1.13.10 i [place]2.[place].2.[place] [phone] [address] 2020-06-01 2020-06-01 Outpatient R [facility] [id number] Univers 13:40:00 13:40:00 SUKHWINDER ity [facility] 2020-06-01 2020-06-01 Outpatient [facility] [id number] Univers 13:40:00 13:40:00 SUKHWINDER ity of [facility] 2020-06-01 2020-06-01 [facility] 1.2.970.213 [id number] Univers 00:00:00 00:00:00 Sukhwinder [place] 350.1.13.10 i [place].2.[place] [phone] [address] 2020-06-01 2020-06-01 Orders Doctor KIERA 1.2.840.114 [id number] Univers 00:00:00 00:00:00 Only Unassigned, CALE 350.1.13.10 ity of [place] [facility] 4.2.7.2.686 [place] [phone] [address] 2020-05-14 2020-05-14 [facility] [id number]-20 Univers 10:45:00 10:45:00 EILEEN [id number] ity o f [facility] 2020-05-14 2020-05-14 [facility] [id number] Univers 10:45:00 10:45:00 EILEEN jerez [facility] 2020-05-13 2020-05-13 Telephone [facility] 1.2.808.106 [id number] Univers 00:00:00 00:00:00 Blair Orange 350.1.13.10 [place] [phone] Ms dical nal 059 [facility] 2020-05-09 2020-05-09 Telephone [facility] 1.2.084.948 [id number] Univers 00:00:00 00:00:00 Qiangjun [place] 350.1.13.10 [place] [phone] Ms dicma nal [address] [place] [address] 2020-04-23 2020-04-23 [facility] 1.2.336.270 [id number] Univers 00:00:00 00:00:00 Boazjun [place] 350.1.13.10 [place].2.[place] [phone] Ms dic[address] 2020-04-09 2020-04-09 Outpatient R [facility] [id number]-20 Univers 10:00:00 10:00:00 EILEEN [id number] sergio jerez [facility] 2020-04-09 2020-04-09 Outpatient R [facility] [id number] Univers 10:00:00 10:00:00 EILEEN jerez [facility] 2020-03-26 2020-03-26 Orders Doctor KIERA 1.2.840.114 [id number] Univers 00:00:00 00:00:00 Only Unassigned, CALE 350.1.13.10 ity of [place] [facility] 4.2.7.2.686 [place] [phone] [address] 2020-03-17 2020-03-17 Telephone [facility] 1.2.208.167 [id number] Univers 00:00:00 00:00:00 Qiangjun [place] 350.1.13.10 [place] [phone] Ms dicma nal 9 [facility] 2020-01-12 2020-03-14 Telemedici Baldev [facility] 1.2.840.114 [id number] Univers 08:28:45 20:11:05 ne Visit Blair Hernandezton 350.1.13.10 [place].2.[place] [phone] Ms dicma nal [address] [place] [address] 2020-03-12 2020-03-12 [employer], [facility] Vascular Room 1 [facility] 1.2.840.114 [id number] Univers 08:03:53 09:03:53 Visit Baldev Blair Pardo 350.1.13.10 [place]2.[place].2.[place] [phone] [facility] nal [address] [place] [address] 2020-03-12 2020-03-12 [employer], [facility] Vascular Room 1 [facility] 1.2.840.114 [id number] Univers 08:03:04 09:03:04 Visit Vanda Lorenzonaheedtimo José Miguel 350.1.13.10 it[place].2.[place] [phone] [address] 2020-03-12 2020-03-12 Outpatient R [facility] [id number] Univers 09:00:00 09:00:00 ity of [facility] 2020-03-12 2020-03-12 Outpatient R [facility] [id number] Univers 08:00:00 08:00:00 [id number] ity of [facility] 2020-03-12 2020-03-12 Outpatient R [facility] [id number] Univers 08:00:00 08:00:00 ity of [facility] 2020-03-09 2020-03-09 Laboratory Pc, [facility] Echo Room 1 [facility] 1 .2.840.114 [id number] Univers 09:57:31 10:57:31 Only Blair Lorenzo Orange 350.1.13.10 [place].2.[place] [phone] Me dical nal 059 [facility] 2020-03-09 2020-03-09 Outpatient R [facility] [id number] Univers 10:00:00 10:00:00 [id number] [facility] 2020-03-09 2020-03-09 Outpatient R [facility] [id number] Univers 10:00:00 10:00:00 [facility] 2020-03-08 2020-03-08 Outpatient R [facility] [id number] Univers 08:00:00 08:00:00 [id number] [facility] 2020-01-12 2020-01-12 Outpatient R BALDEV, [facility] [id number] Univers 13:20:00 13:20:00 BLAIR [id number] ity o [facility] 2020-01-12 2020-01-12 Outpatient R BALDEV, [facility] [id number] Univers 13:20:00 13:20:00 QIANAHEEDTIMO ity o f [facility] Results Test Description Test Time Test Comments Results Result [facility] e Comments TISSUE EXAM 2021-09-24 Surgical Pathology Report 8 08:38:26 Case: [id number] Authorizing Provider: Keiry Bello MD Collected: 10/04/2021 08:30 AM Ordering Location: [address] Received: 10/04/2021 12:15 PM Service Pathologist: Tres Burch MD Specimen: Gastric, GASTRIC ULCERS BIOPSY STOMACH, ULCERS, BIOPSY: - CHRONIC ACTIVE GASTRITIS WITH EXTENSIVE ULCERATION AND GRANULATION TISSUE - NO DYSPLASIA OR CARCINOMA PRESENT - NEGATIVE FOR HELICOBACTER, HSV or CMV (IMMUNOSTAINS) Signing Pathologist Direct Phone Line: [phone] signed by Tres Burch MD on 10/11/2021 at 8:38 [id number], [id number], [phone] x 4Iron deficiency anemiaGastricReceived in formalin labeled the patient's name, accession number and "ulcer" are multiple worley soft tissue fragments measuring up to 0.3 cm in greatest dimension which are filtered and submitted in toto in A1.TRISTAN Carcamo, HT (ASCP)The stomach biopsy has significant reactive atypia, ulceration and granulation tissue. To rule out possible H. pylori, CMV and HSV organisms, immunostains for these organisms were performed on block A1 (appropriate control staining) and were negative. And to rule out possible occult carcinoma in the background of ulcer, pancytokeratin and CAM5.2 were performed and failed to highlight any cancer cells. Close follow-up and re-biopsy is recommended if clinical suspicion for carcinoma is high. Dr. Sonali Courtney reviewed the case and agreed with the diagnosis. The interpretation of this case included the use of immunohistochemistry or special stains.Control Slides Examined: In-house known positive controls were evaluated along with the test tissue. These control slides run alongside of the patients sample show appropriate staining. Internal positive and negative controls when available are evaluated Immunohistochemistry technical testing was performed at [facility], Pathology Laboratory where it was developed and its performance characteristics were determined. It has not been cleared or approved by the U.S. Food and Drug Administration. The FDA has determined that such clearance or approval is not necessary. The test is used for clinical purposes. It should not be regarded as investigational or for research. This laboratory is certified under the Clinical Laboratory Improvement Amendments of 1988 (CLIA-88) as qualified to perform high complexity clinical laboratory testing.[facility], Department of Pathology, [address] [place] [address], [facility], [address] [place] [address], [facility], [facility] of [facility], [address] [place] [address], MAGNESIUM 2021-10-04 04:30:23 Test Item Value Reference Range Interpretation Comme nts MAGNESIUM (BEAKER) (test code = 627) 1.8 mg/dL 1.6-2.6 Airplane Electrician ID - HARSH [id number] 04:30:23 Test Item Value Reference Range Interpretation Comments PHOSPHORUS (BEAKER) (test code = 3.2 mg/dL 2.3-4.7 604) Airplane Electrician ID - HARSH MCOMPREHENSIVE METABOLIC [id number] 04:30:22 Test Item Value Reference Range Interpretation Comments TOTAL PROTEIN 5.9 gm/dL 6.0-8.3 L (BEAKER) (test code = 770) ALBUMIN (BEAKER) 3.2 g/dL 3.5-5.0 L (test code = 1145) ALKALINE PHOSPHATASE 45 U/L 40-150 (BEAKER) (test code = 346) BILIRUBIN TOTAL 0.2 mg/dL 0.2-1.2 (BEAKER) (test code = 377) SODIUM (BEAKER) (test 136 meq/L 136-145 code = 381) POTASSIUM (BEAKER) 4.3 meq/L 3.5-5.1 (test code = 379) CHLORIDE (BEAKER) 113 meq/L 98-107 H (test code = 382) CO2 (BEAKER) (test 18 meq/L 22-29 L code = 355) BLOOD UREA NITROGEN 17 mg/dL 7-21 (BEAKER) (test code = 354) CREATININE (BEAKER) 1.10 mg/dL 0.57-1.25 (test code = 358) GLUCOSE RANDOM 92 mg/dL 70-105 (BEAKER) (test code = 652) CALCIUM (BEAKER) 8.7 mg/dL 8.4-10.2 (test code = 697) AST (SGOT) (BEAKER) 11 U/L 5-34 (test code = 353) ALT (SGPT) (BEAKER) 8 U/L 6-55 (test code = 347) EGFR (BEAKER) (test 68 mL/min/1.73 ESTIMA THANH GFR IS code = 1092) sq m NOT ACCURATE CREATININE CLEARANCE IN PREDICTING GLOMERULAR FILTRATION RATE . ESTIMATED GFR I S NOT APPLICABLE FOR DIALYSIS PATIEN TS. Airplane Electrician ID - HARSH MCBC W/PLT COUNT & AUTO [id number] 04:06:08 Test Item Value Reference Range Interpretation Comments WHITE BLOOD CELL COUNT (BEAKER) 6.5 K/ L 3.5-10.5 (test code = 775) RED BLOOD CELL COUNT (BEAKER) 3.52 M/ L 4.63-6.08 L (test code = 761) HEMOGLOBIN (BEAKER) (test code = 8.0 GM/DL 13.7-17.5 L 410) HEMATOCRIT (BEAKER) (test code = 28.4 % 40.1-51.0 L 411) MEAN CORPUSCULAR VOLUME (BEAKER) 80.7 fL 79.0-92.2 (test code = 753) MEAN CORPUSCULAR HEMOGLOBIN 22.7 pg 25.7-32.2 L (BEAKER) (test code = 751) MEAN CORPUSCULAR HEMOGLOBIN CONC 28.2 GM/DL 32.3-36.5 L (BEAKER) (test code = 752) RED CELL DISTRIBUTION WIDTH 16.5 % 11.6-14.4 H (BEAKER) (test code = 412) PLATELET COUNT (BEAKER) (test 381 K/CU MM 150-450 code = 756) MEAN PLATELET VOLUME (BEAKER) 9.6 fL 9.4-12.4 (test code = 754) NUCLEATED RED BLOOD CELLS 0 /100 WBC 0-0 (BEAKER) (test code = 413) NEUTROPHILS RELATIVE PERCENT 73 % (BEAKER) (test code = 429) LYMPHOCYTES RELATIVE PERCENT 15 % (BEAKER) (test code = 430) MONOCYTES RELATIVE PERCENT 6 % (BEAKER) (test code = 431) EOSINOPHILS RELATIVE PERCENT 5 % (BEAKER) (test code = 432) BASOPHILS RELATIVE PERCENT 1 % (BEAKER) (test code = 437) NEUTROPHILS ABSOLUTE COUNT 4.73 K/ L 1.78-5.38 (BEAKER) (test code = 670) LYMPHOCYTES ABSOLUTE COUNT 0.95 K/ L 1.32-3.57 L (BEAKER) (test code = 414) MONOCYTES ABSOLUTE COUNT (BEAKER) 0.40 K/ L 0.30-0.82 (test code = 415) EOSINOPHILS ABSOLUTE COUNT 0.33 K/ L 0.04-0.54 (BEAKER) (test code = 416) BASOPHILS ABSOLUTE COUNT (BEAKER) 0.08 K/ L 0.01-0.08 (test code = 417) IMMATURE GRANULOCYTES-RELATIVE 1 % 0-1 PERCENT (BEAKER) (test code = 2801) CT, [id number] 18:57:00Unlisted Reason for Exam - Click Yes and Enter Reason Below->YesUnlisted Reason for Exam->abd pain, N/V, OSH CT with gastric thickeningIs this for enterography?->NoWill this procedure require o ral contrast?->No [facility] : 1960 Sex: MFINAL REPORT ABDOMINAL AND PELVIS CT DATED 10/03/2021 CLINICAL INFORM ATION: Unlisted Reason for Examabd pain, N/V, OSH CT with gastric thickening TECHNIQUE: Axial images of the abdomen and pelvis were obtained from diaphragm to the pubic symphysis with intravenous contrast. This exam was performed according to our departmental dose-optimization program, which includes automated exposure control, adjustment of the mA and/or kV according to patient size and/or use ofinteractive reconstruction technique. COMMENT: Liver and spleen are normal in size without focal abnormality. Gallbladder is contracted. No gallstone or biliary dilatation is noted. Pancreas and adrenals are unremarkable. Both kidneys are normal in size and functioning. Several cysts are seen in the left kidney with largest measuring 4.8 x 5.6 cm. A few small cysts are seen in the right kidney measuring 1.2 cm. Several stones are seen in the left kidney measuring up to 5 mm in size. A few small 1 to 2 mm stones are seen in the right kidney. No hydronephrosis or hydroureter is present. There is cortical thinning in the inferior pole left kidney suggestive of prior infarction or infection. Diverticular disease is seen in the large bowel without diverticulitis. Small bowel is normal in caliber. Appendix is not visualized. There is wall thickening involving the body of the stomach. Differential i ncludes gastritis, gastric lymphoma, Kati-Nance syndrome, Menetrier disease, gastric carcinoma, or nondistention. Prostate is normal in size. The urinary bladder is contracted. Vascular calcification is seen in the abdominal aorta and bilateral iliac arteries. Nonspecific lymph nodes are seen adjacent to the body of the stomach measuring up to 1.2 x 1.4 cm. IMPRESSION: 1. Bilateral renal cysts and nonobstructive bilateral renal stones.2. Cortical thinning in the inferior pole left kidney may represent sequela from prior infarction and infection.3. Diverticulosis without diverticulitis.4. Nonspecific gastric wall thickening. Differential as described as above. Recommend correlate clinically or follow-up with endoscopy. Signed: Delio Quintana MDReport Verified Date/Time: 10/03/2021 18:57:32 Reading Location: [facility] C013Y CT Body Reading Room Electronically signed by: DELIO QUINTANA M.D.on 10/03/2021 06:57 PMPERIPHERAL BLOOD SMEAR - PATHOLOGIST [id number] 14:14:07 Test Item Value Reference Range Interpretation Comments RBC MORPHOLOGY See comment Hypochromic, (BEAKER) (test normocytic an emia code = 2846) with moderate anisocytosis an d mild poikilocytosis, including rare to occasional elliptocytes an d acanthocytes. Rare schistocyt es identified. Minimal polychromasia. WBC MORPHOLOGY See comment Normal in num julius. (BEAKER) (test No significan t code = 2844) deviations from normal WBCs subtype proportions. Lymphocytes wit h few reactive an d rare atypical forms. No immat ure WBCs identified . PLT MORPHOLOGY No Clumping (BEAKER) (test code = 2844) PLT MORPHOLOGY No Satellitosis (BEAKER) (test code = 177281) PLT MORPHOLOGY See comment Adequate in n umber (BEAKER) (test with normal code = 144531) granular morphology. Occasional larg e and rare giant forms identifie d. [facility]-PATHOLOGIST- Jaden Mayen MD 6112 (BEAKER) (electronic (test code = signature) 6684) HEMOGLOBIN [id number] 09:56:08 Test Item Value Reference Range Interpretation Comments HEMOGLOBIN A1C 5.8 % See_Comment H [Automated m essage] ELECTROPHORESIS (BEAKER) The system which (test code = 3811) generated this result transmitted ref erence range: <=5.6%. The reference range was not used to int erpret this result as normal/abnormal . "The A1c is measured using a [facility]-certified method. HbA1c value equal to or greater than 6.5% as thediagnosis cutoff for diabetes. An HbA1c value of 5.7- 6.4% indicates increased risk for diabetes (prediabetes)."Airplane Electrician ID - ADM SARS-COV2/RT-PCR ([facility])2021-10-03 09:18:48 Test Item Value Reference Range Interpretation Comments SARS-COV2/RT-PCR (test Negative Not Detected, Negative, code = 0801838) See external report for linked test SARS-COV-2 PERFORMING LAB [facility] (test code = 6338283) Negative result for this test determines that SARS-CoV-2 RNA was not present in the specimen above the Limit of Detection (LOD). However, Negative results do not preclude SARS-CoV-2 infection and should not be used as the sole basis for treatment or patient management decisions. Negative results mustbe combined with clinical observations, patient history, and epidemiological information. A false negative result may occur if a specimen is improperly collected, transported or handled. A false negative result should be considered if patient's recent exposures or clinical presentation indicate that COVID-19 (SARS-CoV-2) is likely and diagnostic tests for other causes of illness are negative. Re-testing should be considered in cases of suspected false negatives.The limit of detection for this assay is 800 copies/mL.This SARS CoV-2 test is a real-time RT-PCR test intended for the qualitative detection of nucleic acid from SARS-CoV-2 in a nasopharyngeal swab specimen collected from individuals susp ected of COVID-19 by their healthcare provider.This test has not been Food and Drug Administration (FDA) cleared or approved. This is a modified version of an approved Emergency Use Authorization (EUA) and is in the process of review by the FDA. Once authorized by the FDA, the issued EUA will be effective until the declaration that circumstances exist justifying the authorization of the emergency use of in vitro diagnostic tests for detection and/or diagnosis of COVID-19 is terminated under Section 564(b)(2) of the Act or the EUA is revoked under Section 564(g) of the Act.Fact Sheet for Healthcare Providers:https://[email or web address]/sites/default/files/product/documents/Fact_Shee [email or web address].pdfFact Sheet for Healthcare Patients:[email or web address].pdfPerforming Laboratory:[facility], [place] [id number] 05:18:14 Test Item Value Reference Range Interpretation Comments PHOSPHORUS (BEAKER) (test code = 3.5 mg/dL 2.3-4.7 604) Airplane Electrician ID - DBLIPID [id number] 05:18:14 Test Item Value Reference Range Interpretation Comments TRIGLYCERIDES (BEAKER) (test code = 78 mg/dL 540) CHOLESTEROL (BEAKER) (test code = 89 mg/dL 631) HDL CHOLESTEROL (BEAKER) (test code 26 mg/dL = 976) LDL CHOLESTEROL CALCULATED (BEAKER) 47 mg/dL (test code = 633) Triglyceride Reference Range: Low Risk <150 Borderline 150-199 High Risk 200-499 Very High Risk >=500Cholesterol Reference Range: Low Risk <200 Borderline 200-239 High Risk >240HDL Cholesterol Reference Range: Low Risk >=60 High Risk <40LDL Cholesterol Reference Range: Optimal <100 Near Optimal 100-129 Borderline 130-159 High 160-189 Very High >=190 Airplane Electrician ID - DBCOMPREHENSIVE METABOLIC [id number] 05:18:13 Test Item Value Reference Range Interpretation Comments TOTAL PROTEIN 5.8 gm/dL 6.0-8.3 L (BEAKER) (test code = 770) ALBUMIN (BEAKER) 3.2 g/dL 3.5-5.0 L (test code = 1145) ALKALINE PHOSPHATASE 41 U/L 40-150 (BEAKER) (test code = 346) BILIRUBIN TOTAL 0.2 mg/dL 0.2-1.2 (BEAKER) (test code = 377) SODIUM (BEAKER) (test 135 meq/L 136-145 L code = 381) POTASSIUM (BEAKER) 4.2 meq/L 3.5-5.1 (test code = 379) CHLORIDE (BEAKER) 114 meq/L 98-107 H (test code = 382) CO2 (BEAKER) (test 17 meq/L 22-29 L code = 355) BLOOD UREA NITROGEN 19 mg/dL 7-21 (BEAKER) (test code = 354) CREATININE (BEAKER) 1.26 mg/dL 0.57-1.25 H (test code = 358) GLUCOSE RANDOM 90 mg/dL 70-105 (BEAKER) (test code = 652) CALCIUM (BEAKER) 8.5 mg/dL 8.4-10.2 (test code = 697) AST (SGOT) (BEAKER) 9 U/L 5-34 (test code = 353) ALT (SGPT) (BEAKER) 6 U/L 6-55 (test code = 347) EGFR (BEAKER) (test 58 mL/min/1.73 ESTIMA THANH GFR IS code = 1092) sq m NOT ACCURATE CREATININE CLEARANCE IN PREDICTING GLOMERULAR FILTRATION RATE . ESTIMATED GFR I S NOT APPLICABLE FOR DIALYSIS PATIEN TS. Airplane Electrician ID - [id number] 05:18:13 Test Item Value Reference Range Interpretation Comments MAGNESIUM (BEAKER) (test code = 1.9 mg/dL 1.6-2.6 627) Airplane Electrician ID - DBCBC W/PLT COUNT & AUTO [id number] 04:51:38 Test Item Value Reference Range Interpretation Comments WHITE BLOOD CELL COUNT (BEAKER) 5.7 K/ L 3.5-10.5 (test code = 775) RED BLOOD CELL COUNT (BEAKER) 3.14 M/ L 4.63-6.08 L (test code = 761) HEMOGLOBIN (BEAKER) (test code = 7.2 GM/DL 13.7-17.5 L 410) HEMATOCRIT (BEAKER) (test code = 24.8 % 40.1-51.0 L 411) MEAN CORPUSCULAR VOLUME (BEAKER) 79.0 fL 79.0-92.2 (test code = 753) MEAN CORPUSCULAR HEMOGLOBIN 22.9 pg 25.7-32.2 L (BEAKER) (test code = 751) MEAN CORPUSCULAR HEMOGLOBIN CONC 29.0 GM/DL 32.3-36.5 L (BEAKER) (test code = 752) RED CELL DISTRIBUTION WIDTH 17.0 % 11.6-14.4 H (BEAKER) (test code = 412) PLATELET COUNT (BEAKER) (test 392 K/CU MM 150-450 code = 756) MEAN PLATELET VOLUME (BEAKER) 9.6 fL 9.4-12.4 (test code = 754) NUCLEATED RED BLOOD CELLS 0 /100 WBC 0-0 (BEAKER) (test code = 413) NEUTROPHILS RELATIVE PERCENT 44 % (BEAKER) (test code = 429) LYMPHOCYTES RELATIVE PERCENT 39 % (BEAKER) (test code = 430) MONOCYTES RELATIVE PERCENT 9 % (BEAKER) (test code = 431) EOSINOPHILS RELATIVE PERCENT 7 % (BEAKER) (test code = 432) BASOPHILS RELATIVE PERCENT 1 % (BEAKER) (test code = 437) NEUTROPHILS ABSOLUTE COUNT 2.50 K/ L 1.78-5.38 (BEAKER) (test code = 670) LYMPHOCYTES ABSOLUTE COUNT 2.21 K/ L 1.32-3.57 (BEAKER) (test code = 414) MONOCYTES ABSOLUTE COUNT (BEAKER) 0.49 K/ L 0.30-0.82 (test code = 415) EOSINOPHILS ABSOLUTE COUNT 0.39 K/ L 0.04-0.54 (BEAKER) (test code = 416) BASOPHILS ABSOLUTE COUNT (BEAKER) 0.07 K/ L 0.01-0.08 (test code = 417) IMMATURE GRANULOCYTES-RELATIVE 1 % 0-1 PERCENT (BEAKER) (test code = 2801) URINALYSIS WITH MICROSCOPIC IF [id number] 01:04:25 Test Item Value Reference Range Interpretation Comments COLOR (BEAKER) (test code = 470) Light Yellow CLARITY (BEAKER) (test code = Clear 469) SPECIFIC GRAVITY UA (BEAKER) 1.014 1.001-1.035 (test code = 468) PH UA (BEAKER) (test code = 467) 6.5 5.0-8.0 PROTEIN UA (BEAKER) (test code = Negative Negative 464) GLUCOSE UA (BEAKER) (test code = Negative Negative 365) KETONES UA (BEAKER) (test code = Negative Negative 371) BILIRUBIN UA (BEAKER) (test code Negative Negative = 462) BLOOD UA (BEAKER) (test code = Negative Negative 461) NITRITE UA (BEAKER) (test code = Negative Negative 465) LEUKOCYTE ESTERASE UA (BEAKER) Negative Negative (test code = 466) UROBILINOGEN UA (BEAKER) (test 0.2 mg/dL 0.2-1.0 code = 463) SOURCE(BEAKER) (test code = 2795) Airplane 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 (WITHOUT FERRITIN)2021-10-02 18:16:14 Test Item Value Reference Range Interpretation Comments IRON (BEAKER) (test code = 547) 25.0 ug/dL 40.0-160.0 L TOTAL IRON BINDING CAPACITY 443 ug/dL 250-450 (BEAKER) (test code = 769) IRON % SATURATION (2) (BEAKER) 6 % 20-55 L (test code = 2590) Airplane Electrician ID - BENI GOperator ID - DBRAD, ABDOMEN/KUB, 1 VIEW [id number] 18:02:00Reason for exam:->acute abdominal pain [facility] 1960 Sex: MFINAL REPORT EXAM: RAD, ABDOMEN/KUB, 1 VIEW AP History: acute abdomi nal pain Comparison: None available. Discussion: No data loops of bowel are identified. No significant increased stool burden.Lung bases are clear.There is a probable 6 mm left upper pole renal calculus. Additional punctate 2 mm right renal calculi are identified the lower pole.No acute osseous abnormality. IMPRESSION: Probable bilateral renal calculi.Nonobstructive bowel gas pattern. Signed: Jason Rayort Verified Date/Time: 10/02/2021 18:02:37 Reading Location: [address] Reading Room [id number] 17:37:07 Test Item Value Reference Range Interpretation Comments LIPASE (BEAKER) (test code = 749) 20 U/L 8-78 Airplane Electrician ID - BENI GTSH/FREE T4 IF [id number] 17:05:20 Test Item Value Reference Range Interpretation Comments THYROID STIMULATING HORMONE 6.668 uIU/mL 0.350-4.940 H (BEAKER) (test code = 772) Airplane Electrician ID - BENI GVITAMIN B12 AND [id number] 16:52:36 Test Item Value Reference Range Interpretation Comments VITAMIN B12 (BEAKER) 515 pg/mL 213-816 (test code = 774) FOLATE (BEAKER) 8.50 ng/mL See_Comment [Automated message] (test code = 362) The system which generated this result transmitted ref erence range: >=7.00. The reference range was not used to interpr et this result as normal/abnormal . Airplane Electrician ID - BENI [id number] 16:52:35 Test Item Value Reference Range Interpretation Comments FERRITIN (BEAKER) (test code = 5.19 ng/mL 5.00-275.00 361) Airplane Electrician ID - BENI GB-TYPE NATRIURETIC FACTOR (BNP)2021-10-02 16:22:12 Test Item Value Reference Range Interpretation Comments B-TYPE NATRIURETIC PEPTIDE (BEAKER) 72 pg/mL 0-100 (test code = 700) Airplane Electrician ID - BENI GHIGH SENSITIVITY TROPONIN [id number] 16:21:50 Test Item Value Reference Range Interpretation Comments HIGH SENSITIVITY 8 pg/ml See_Comment [Automated message] TROPONIN I (test code = The system which [id number]) generated this result transmitted ref erence range: <=35. Th e reference range was not used to interpr et this result as normal/abnormal . Airplane Electrician ID - BENI GThe CHIEF FINANCIAL OFFICER STAT High Sensitivity Troponin-I results should be used in conjunction with other diagnostic information such as ECG, clinical observations and information, and patient symptoms to aid in the diagnosis of [place].COMPREHENSIVE METABOLIC [id number] 16:19:32 Test Item Value Reference Range Interpretation Comments TOTAL PROTEIN 6.6 gm/dL 6.0-8.3 (BEAKER) (test code = 770) ALBUMIN (BEAKER) 3.6 g/dL 3.5-5.0 (test code = 1145) ALKALINE PHOSPHATASE 44 U/L 40-150 (BEAKER) (test code = 346) BILIRUBIN TOTAL 0.2 mg/dL 0.2-1.2 (BEAKER) (test code = 377) SODIUM (BEAKER) (test 138 meq/L 136-145 code = 381) POTASSIUM (BEAKER) 4.2 meq/L 3.5-5.1 (test code = 379) CHLORIDE (BEAKER) 113 meq/L 98-107 H (test code = 382) CO2 (BEAKER) (test 18 meq/L 22-29 L code = 355) BLOOD UREA NITROGEN 26 mg/dL 7-21 H (BEAKER) (test code = 354) CREATININE (BEAKER) 1.53 mg/dL 0.57-1.25 H (test code = 358) GLUCOSE RANDOM 79 mg/dL 70-105 (BEAKER) (test code = 652) CALCIUM (BEAKER) 9.0 mg/dL 8.4-10.2 (test code = 697) AST (SGOT) (BEAKER) 10 U/L 5-34 (test code = 353) ALT (SGPT) (BEAKER) 11 U/L 6-55 (test code = 347) EGFR (BEAKER) (test 47 mL/min/1.73 ESTIMA THANH GFR IS code = 1092) sq m NOT ACCURATE CREATININE CLEARANCE IN PREDICTING GLOMERULAR FILTRATION RATE . ESTIMATED GFR I S NOT APPLICABLE FOR DIALYSIS PATIEN TS. Airplane Electrician ID - BENI [id number] 16:19:32 Test Item Value Reference Range Interpretation Comments MAGNESIUM (BEAKER) (test code = 2.0 mg/dL 1.6-2.6 627) Airplane Electrician ID - BENI [id number] 16:19:32 Test Item Value Reference Range Interpretation Comments PHOSPHORUS (BEAKER) (test code = 3.4 mg/dL 2.3-4.7 604) Airplane Electrician ID - BENI GLACTIC ACID, [id number] 16:12:09 Test Item Value Reference Range Interpretation Comments LACTATE BLOOD VENOUS (2) (BEAKER) 0.50 mmol/L 0.50-2.20 (test code = 2872) Airplane Electrician ID - BENI GPROTHROMBIN TIME/[id number] 15:53:06 Test Item Value Reference Range Interpretation Comments PROTIME (BEAKER) 14.4 seconds 11.9-14.2 H (test code = 759) INR (BEAKER) (test 1.14 See_Comment [Automat ed message] code = 370) The system [employer] generated this result transmitted ref erence range: <=5.90. The reference range was not used to int erpret this result as normal/abnormal . RECOMMENDED COUMADIN/WARFARIN INR THERAPY RANGESSTANDARD DOSE: 2.0 - 3.0 Includes: PROPHYLAXIS forvenous thrombosis, systemic embolization; TREATMENT for venous thrombosis and/or pulmonary embolus.HIGH RISK: Target INR is 2.5-3.5 for patients with mechanical heart valves.RETICULOCYTE [id number] 15:35:19 Test Item Value Reference Range Interpretation Comments RETICULOCYTE COUNT PCT (BEAKER) (test 1.4 % 0.5-1.8 code = 575) Airplane Electrician ID - [id number] W/PLT COUNT & AUTO [id number] 15:35:19 Test Item Value Reference Range Interpretation Comments WHITE BLOOD CELL COUNT (BEAKER) 9.3 K/ L 3.5-10.5 (test code = 775) RED BLOOD CELL COUNT (BEAKER) 3.38 M/ L 4.63-6.08 L (test code = 761) HEMOGLOBIN (BEAKER) (test code = 7.8 GM/DL 13.7-17.5 L 410) HEMATOCRIT (BEAKER) (test code = 27.4 % 40.1-51.0 L 411) MEAN CORPUSCULAR VOLUME (BEAKER) 81.1 fL 79.0-92.2 (test code = 753) MEAN CORPUSCULAR HEMOGLOBIN 23.1 pg 25.7-32.2 L (BEAKER) (test code = 751) MEAN CORPUSCULAR HEMOGLOBIN CONC 28.5 GM/DL 32.3-36.5 L (BEAKER) (test code = 752) RED CELL DISTRIBUTION WIDTH 17.0 % 11.6-14.4 H (BEAKER) (test code = 412) PLATELET COUNT (BEAKER) (test 440 K/CU MM 150-450 code = 756) MEAN PLATELET VOLUME (BEAKER) 9.2 fL 9.4-12.4 L (test code = 754) NUCLEATED RED BLOOD CELLS 0 /100 WBC 0-0 (BEAKER) (test code = 413) NEUTROPHILS RELATIVE PERCENT 65 % (BEAKER) (test code = 429) LYMPHOCYTES RELATIVE PERCENT 23 % (BEAKER) (test code = 430) MONOCYTES RELATIVE PERCENT 6 % (BEAKER) (test code = 431) EOSINOPHILS RELATIVE PERCENT 5 % (BEAKER) (test code = 432) BASOPHILS RELATIVE PERCENT 1 % (BEAKER) (test code = 437) NEUTROPHILS ABSOLUTE COUNT 6.09 K/ L 1.78-5.38 H (BEAKER) (test code = 670) LYMPHOCYTES ABSOLUTE COUNT 2.11 K/ L 1.32-3.57 (BEAKER) (test code = 414) MONOCYTES ABSOLUTE COUNT (BEAKER) 0.55 K/ L 0.30-0.82 (test code = 415) EOSINOPHILS ABSOLUTE COUNT 0.44 K/ L 0.04-0.54 (BEAKER) (test code = 416) BASOPHILS ABSOLUTE COUNT (BEAKER) 0.10 K/ L 0.01-0.08 H (test code = 417) IMMATURE GRANULOCYTES-RELATIVE 0 % 0-1 PERCENT (BEAKER) (test code = 2801) RAD, CHEST, 1 VIEW, NON [id number] 15:26:00Reason for exam:->aicd shockShould this be performed at the bedside?->Yes [facility] 1960 Sex: MFINAL REPORT RAD, CHEST, 1 VIEW, NON DEPT TECHNIQUE: Frontal view(s)of the chest. INDICATION: AICD shock COMPARISON: 05/08/2016 FINDINGS/IMPRESSION: Lines/Tubes: A dual-lead pacemaker/AICD Lungs/pleura: The left lateral costophrenic sulcus is excluded from opchg-ui-bepj. A linear opacity in the lateral right lower lobe is probably a scar. The lungs are otherwise clear and well inflated. No visible pleural effusion. No pneumothorax. Heart and Mediastinum: Unremarkable.Soft Tissues and Bones: Unremarkable. Signed: Padmini Hdez MDRepannie Verified Date/Time: 10/02/2021 15:26:50 Reading Location: [facility] [id number] Ortho Consult Reading Room COVID-19 (ID NOW RAPID TESTING)2021-03-14 19:25:39 Test Item Value Reference Range Interpretation Comments SARS-CoV-2 Rapid ID NOW Not Detected Not Detected (test code = 07199-3) PETRA (test code = PETRA) ID NOW COVID-19 Assay is an isothermal nucleic acid amplification test intended for the qualitative detection of nucleic acid from SARS-CoV-2 viral RNA in nasopharyngeal (COAT TAILOR) specimens. It is used under Emergency Use [...] patient testing if clinically indicated. Lab Interpretation Normal (test code = 85247-9) [facility]Maxl[facility] centerlu[facility] [id number] 19:24:38 Test Item Value Reference Range Interpretation Comments TROPONIN I (test 0.004 ng/mL See_Comment [Automated code = 1140924605) message] The system which generated this result [...] ? Lab Interpretation Normal (test code = 60660-3) [facility] CenteraPTT2021-06-21 19:22:20 Test Item Value Reference Range Interpretation Comments APTT Patient (test See_Comment [Automat ed code = 3173-2) message] The system which generated this result transmitted reference range : 23 - 38 Seconds . The reference range was not used to interpr et this result as normal/abnormal . PETRA (test code = PETRA) The [facility] patient population mean normal value for aPTT is 30 seconds. Lab Interpretation Normal (test code = 71493-1) [facility] CenterCBC with [id number] 19:20:59 Test Item Value Reference Range Interpretation Comments WBC (test code = See_Comment H [Automated 9590-2) message] The system which generated this result transmit thanh reference range : 4.20 - 10.70 10*3/?L. The reference range was not used to interpret this result as normal/abnormal . RBC (test code = See_Comment L [Automated 269-8) message] The system which generated this result [...] RDW-SD (test code = 46.9 fL 38.5-51.6 73096-7) RDW-CV (test code = 15.6 % 12.1-15.4 H 788-0) PLT (test code = See_Comment [Automated 777-3) message] The system which generated this result transmit thanh reference range : 150 - 328 10*3/ ?L. The reference range was not u sed to interpret th is result as normal/abnormal . MPV (test code = 10.0 fL 9.8-13.0 26309-6) NRBC/100 WBC (test See_Comment [Automat ed code = 9283725837) message] The system which generated this result transmit thanh reference range : 0.0 - 10.0 /100 WBCs. The reference range was not used to interpret this result as normal/abnormal . NRBC x10^3 (test code <0.01 See_Comment [Auto mated = 3550812412) message] The system which generated this result transmit thanh reference range : 10*3/?L. The reference range was not used to interpret this result as normal/abnormal . GRAN MAT (NEUT) % 77.3 % (test code = 770-8) IMM GRAN % (test code 0.70 % = 4936539465) LYMPH % (test code = 14.7 % 736-9) MONO % (test code = 4.8 % 5905-5) EOS % (test code = 1.7 % 713-8) BASO % (test code = 0.8 % 706-2) GRAN MAT x10^3(ANC) 10.16 10*3/uL 1.99-6.95 H (test code = 4197576374) IMM GRAN x10^3 (test 0.09 10*3/uL 0.00-0.06 H code = 0627192605) LYMPH x10^3 (test code 1.94 10*3/uL 1.09-3.23 = 731-0) MONO x10^3 (test code 0.63 10*3/uL 0.36-1.02 = 742-7) EOS x10^3 (test code = 0.23 10*3/uL 0.06-0.53 711-2) BASO x10^3 (test code 0.11 10*3/uL 0.01-0.09 H = 704-7) Lab Interpretation Abnormal (test code = 39969-6) [facility] CenterProthrombin Time (PT) / [id number] 19:20:18 Test Item Value Reference Range Interpretation Comments PROTIME PATIENT (test See_Comment [Auto mated message] code = 5964-2) The system [employer] generated this result transmitted ref erence range: 12.0 - 1 4.7 Seconds. The re ference range was not u sed to interpret this result as normal/abnor mal. INR (test code = 6301-6) Nor mal INR <1.1; Warfarin Therap eutic range 2.0 to 3. 0 or 2.5 to 3.5, dep ending upon the indica tions. Lab Interpretation (test Normal code = 21992-6) [facility] CenterBasi Metabolic Panel (NA, K, CL, CO2, GLUCOSE, BUN, CREATININE, CA)2021-03-14 19:13:17 Test Item Value Reference Range Interpretation Comments NA (test code = 138 mmol/L 135-145 7658724656) K (test code = 4.5 mmol/L 3.5-5.0 3620800661) CL (test code = 109 mmol/L 98-108 H 0814760058) CO2 TOTAL (test code = 21 mmol/L 23-31 L 7865448958) AGAP (test code = 2-16 5999112559) BUN (test code = 18 mg/dL 7-23 4064239139) GLUCOSE (test code = 115 mg/dL 70-110 H 2140192956) CREATININE (test code = 1.12 mg/dL 0.60-1.25 1814307241) CALCIUM (test code = 8.8 mg/dL 8.6-10.6 9331439364) eGFR (test code = mL/min/1.73m2 3633332653) PETRA (test code = PETRA) Association of [...] tests). Lab Interpretation Abnormal (test code = 72984-8) [facility] CenterHepatic Function Panel (ALB, T.PRO, BILI T, BU/BC, ALT, AST, ALK PHOS)2021-03-14 19:13:17 Test Item Value Reference Range Interpretation Comments TOTAL BILI (test code = 0172031400) 0.4 mg/dL 0.1-1.1 BILI UNCON (test code = 3616498590) 0.3 mg/dL 0.1-1.1 BILI CONJ (test code = 0615424655) 0.0 mg/dL 0.0-0.3 T PROTEIN (test code = 1353647979) 6.5 g/dL 6.3-8.2 ALBUMIN (test code = 8805042291) 3.6 g/dL 3.5-5.0 ALK PHOS (test code = 7599003352) 73 U/L 34-122 ALTv (test code = 1742-6) 12 U/L 5-50 AST(SGOT) (test code = 9341768931) 16 U/L 13-40 Lab Interpretation (test code = Normal 24444-0) [facility] CenterLIPASE2021-06-21 19:13:17 Test Item Value Reference Range Interpretation Comments LIPASE (test code = 2302345219) 155 U/L 0-220 Lab Interpretation (test code = Normal 01410-7) [facility] METABOLIC [id number] 12:34:00 Test Item Value Reference Range Interpretation [...] RECOLLECTION NEEDED ON 12/19/18 AT 1151 BY Z.LAB.TE1OAMEWE: HEMOLYZEDNOTIFIED PATIENT CARE STAFF:[id number] 12:34:00 Test Item Value Reference Range Interpretation Comments MAGNESIUM (test code = MAG) 1.8 MG/DL 1.6-2.3 N RECOLLECTION NEEDED ON 12/19/18 AT 1151 BY Z.LAB.JT7UIUAUS: HEMOLYZEDNOTIFIED PATIENT CARE STAFF:DAVIDTPROTHROMBIN [id number] 12:10:00 Test Item Value Reference Range Interpretation [...] syste andrew embolism. 3.0 - 4.5 PTT [id number] 12:10:00 Test Item Value Reference Range Interpretation Comments PTT ACTIVATED (test code = APTT) 25.7 SECONDS 22.0-33.0 N CBC W/AUTO [id number] 11:41:00 Test Item Value Reference Range Interpretation [...] (test code = 0.00 K/mm3 0.0-0.1 N NRBC#)
[2022-01-16] MEDS ORDERED: MORPHINE 4 MG/ML SYR ONE ×2 (04:09→05:23)
[2022-01-16] MEDS ORDERED: ONDANSETRON 4 MG/2 ML VIAL ONE ×2 (04:09→05:24)
[2022-01-16 04:27] LABS: Absolute Lymphocytes (CBC) 1.8 K/uL (0.7-4.9); Hematocrit 32.7 % (39.6-49.0); Lymphocytes % 11.6 % (15.3-44.8); MPV 7.5 fL (7.6-11.3); RBC Red Blood Cell Count 4.46 M/uL (4.33-5.43)
[2022-01-16 04:30] LABS: Protime INR 1.23
[2022-01-16] MEDS ORDERED: NA CHLORIDE 0.9% 1,000 ML ONE ×3 (04:39→14:53)
[2022-01-16 04:41] LABS: Albumin 2.5 g/dL (3.4-5.0); Potassium 4.5 mmol/L (3.5-5.1)
[2022-01-16 04:59] LABS: Anisocytosis 1+; Blood Morphology Comment NOTED (NOT SEEN); Platelet Estimate ADEQ; White Blood Cell Scan OK (OK)
[2022-01-16] MEDS ORDERED: FENTANYL CITR 100 MCG/2 ML ONE ×2 (06:52→09:06)
--- NOTE | 2022-01-16 08:24 | RAD REPORT ---
EXAM DESCRIPTION: CT - Chest Abdomen Pelvis W Cont - 01/16/2022 8:02 am CLINICAL HISTORY: chest pain, abdominal pain COMPARISON: No comparisons TECHNIQUE: Following dynamic enhancement using 100 milliliters nonionic IV contrast, axial imaging o f the chest, abdomen and pelvis was performed. Biphasic technique was utilized through the abdomen. No oral contrast administered. All CT scans are performed using dose optimization technique as appropriate and may include automated exposure control or mA/KV adjustment according to patient size. FINDINGS: Dependent atelectasis changes present along the posterior lung suazo. More focal strandin g is seen in each posterior gutter most likely scarring. Acute lung parenchymal process is not suspec thanh. No pleural effusion, pleural thickening or pneumothorax. No central pulmonary emboli or acute pu lmonary artery finding. Exam protocol and does not allow for far peripheral branch pulmonary arterial assessment. Mediastinal and hilar regions show no mass or abnormal lymphadenopathy. No chest wall ma ss or axillary lymphadenopathy. No pericardial thickening or effusion. Coronary artery calcifications are present. Aortic wall atherosclerotic calcifications are present without aneurysm or dissection. The liver, spleen and pancreas show no suspicious findings. No gallbladder abnormality evident. Bilia ry tree is mildly prominent. Gallstones and duct stones can be occult on CT imaging. Symmetric renal function is seen with no suspicious mass or hydronephrosis. Multiple renal cysts are present on the l eft. Largest is 5.7 cm in the upper pole. Areas of cortical thinning are seen in both kidneys from pr ior infectious or and ischemic insult. An active renal parenchymal process is not suspected. No urina ry bladder, prostate gland or seminal vesicle acute finding. Stomach is not dilated. Couch of the gastric antrum appear thickened or edematous. This can be a michelle stalsis artifact. However, correlation is needed with any clinical findings that may indicate gastric antritis. No acute duodenal finding. Small bowel is unremarkable. Moderate stool volume present in t he colon. Mild wall thickening seen in the proximal sigmoid colon. Diverticulosis is mild. A mild sig moid diverticulitis is suspected and can be correlated with clinical presentation. Appendix is not cl early defined. Acute appendicitis is not suspected. No free air, free fluid or pneumatosis. No acute or destructive bony process. Degenerative changes are present as expected for age. Arterial calcifications are present. No aneurysm or displaced calcification. Stenosis a 50% is suspec thanh at the origin of the right common iliac artery with slightly less stenosis at the left common kaylin ac artery origin. IMPRESSION: CT chest imaging shows no acute or suspicious finding. Suspected gastric antritis. This needs clinical correlation. Suspected mild diverticulitis in the proximal sigmoid colon also needing correlation with clinical pr esentation. No free air, obstruction or other surgically emergent finding.
[2022-01-16] MEDS ORDERED: levoFLOXacin 750 MG TAB PO SCH (09:00)
--- NOTE | 2022-01-16 09:02 | EDPHYS ---
Physician Documentation [facility] Name: Alexander Bowman Age: 61 yrs Sex: Male : 1960 Arrival Date: 01/16/2022 Time: 03:43 Bed 15 Private MD: ED Physician Robson Guillen HPI: 01/16 03:47 This 61 yrs old Male presents to ER via Unassigned with complaints of Weakness, altered kdr mental status. 03:47 EMS reports that the called this evening because the patient was weak and not able kdr to get out of his chair. EMS reports that the patient's was a very poor historian and mostly want to talk about her dogs. Patient was intermittently responsive to the EMS personnel. Is a question as to whether he was truly unresponsive or poorly responsive or simply presenting that way. No other report of trauma or other acute illness injury or other prodrome. Review of systems was not possible to any extent due to the poor information provided by the . Patient himself was not able to provide any history. Onset: The symptoms/episode began/occurred at an unknown time. Severity of symptoms: At their worst the symptoms were severe incapacitating just prior to arrival, in the emergency department the symptoms are unchanged. It is unknown whether or not the patient has had similar symptoms in the past. It is unknown whether or not the patient has recently seen a physician. Historical: - Allergies: 04:21 Aspirin; sm5 04:21 Codeine; sm5 04:21 Ibuprofen; sm5 04:21 Levofloxacin; sm5 04:21 mycins; sm5 04:21 PENICILLINS; sm5 04:21 Sulfa (Sulfonamide Antibiotics); sm5 04:21 Tylenol-Codeine #3; sm5 - Home Meds: 04:21 Viibryd 40 mg Oral tab [Active]; Advair Diskus 100-50 mcg/dose Inhl dsdv 1 puff 2 times sm5 per day [Active]; Aldactone 25 mg Oral tab 1 tab once daily [Active]; Dulera 100-5 mcg/actuation inhalation HFAA [Active]; fluticasone furoate 27.5 mcg/actuation nasal spsn [Active]; Imdur 60 mg Oral Tb24 1 tab once daily [Active]; metronidazole 500 mg Oral tab 1 tab 3 times per day [Active]; Nitrostat 0.4 mg SL subl 1 tab every 5 minutes [Active]; omeprazole 40 mg Oral cpDR 1 cap once daily [Active]; pravastatin 20 mg Oral tab 1 tab once daily [Active]; Robaxin 500 mg Oral tab TID [Active]; Saphris 5 mg sublingual subl 1 tab 2 times per day [Active]; Spiriva with HandiHaler 18 mcg inhalation CpDv [Active]; - PMHx: 04:21 Anxiety; Hypertension; COPD; Myocardial infarction; Pneumonia; Pneumothorax; sm5 - PSHx: 04:21 18" bowel removal; Stented artery; sm5 - Immunization history:: Adult Immunizations up to date. - Social history:: Smoking status: unknown. ROS: 03:47 Constitutional: Unable to obtain kdr 03:47 Unable to obtain ROS due to obtunded state, patient's speech is incomprehensible. Exam: 03:47 Constitutional: This is a well developed, well nourished patient who is awake, alert, kdr and in no acute distress. Head/Face: Normocephalic, atraumatic. Eyes: Pupils equal round and reactive to light, extra-ocular motions intact. Lids and lashes normal. Conjunctiva and sclera are non-icteric and not injected. Cornea within normal limits. Periorbital areas with no swelling, redness, or edema. After some prompting, the patient opened his eyes and looked about the room and followed my voice. He did not respond verbally to that initially but did seem to attempt to speak after a few minutes. He did not enunciate any information other than that he had possibly had a heart attack in the past. Neck: Trachea midline, no thyromegaly or masses palpated, and no cervical lymphadenopathy. Supple, full range of motion without nuchal rigidity, or vertebral point tenderness. No Meningismus. Chest/axilla: Normal chest wall appearance and motion. Nontender with no deformity. No lesions are appreciated. Cardiovascular: Regular rate and rhythm with a normal S1 and S2. No gallops, murmurs, or rubs. Normal PMI, no JVD. No pulse deficits. Respiratory: Lungs have equal breath sounds bilaterally, clear to auscultation and percussion. No rales, rhonchi or wheezes noted. No increased work of breathing, no retractions or nasal flaring. Abdomen/GI: Soft, non-tender, with normal bowel sounds. No distension or tympany. No guarding or rebound. No evidence of tenderness throughout. Back: No spinal tenderness. No costovertebral tenderness. Full range of motion. Skin: Warm, dry with normal turgor. Normal color with no rashes, no lesions, and no evidence of cellulitis. MS/ Extremity: Pulses equal, no cyanosis. Neurovascular intact. Full, normal range of motion. 03:47 Neuro: Orientation: unable to test, Mentation: inappropriate for stated age, slow to respond, confused. Vital Signs: 03:45 BP 143 / 69; Pulse 86; Resp 16; Pulse Ox 100% on R/A; sm5 05:56 BP 99 / 59; Pulse 83; Resp 14; Pulse Ox 98% on R/A; sm5 06:40 BP 100 / 66; Pulse 82; Resp 20; Pulse Ox 98% on R/A; sm5 07:00 BP 108 / 72; Pulse 80; Resp 16; Pulse Ox 99% ; bp 08:42 BP 101 / 58; Pulse 74; Pulse Ox 97% on R/A; ap3 10:17 BP 103 / 55; Pulse 72; Pulse Ox 97% on R/A; ap3 10:49 BP 101 / 57; Pulse 70; Pulse Ox 97% on R/A; ap3 11:45 BP 100 / 62; Pulse 72; Temp 97.8(O); Pulse Ox 98% on R/A; ap3 12:38 BP 95 / 64; Pulse 65; Pulse Ox 96% on R/A; ap3 MDM: 07:34 Data reviewed: vital signs, nurses notes, lab test result(s), radiologic studies. kdr Counseling: I had a detailed discussion with the patient and/or guardian regarding: the historical points, exam findings, and any diagnostic results supporting the discharge/admit diagnosis, lab results. 09:01 Patient medically screened. kdr 01/16 03:46 Order name: Blood Culture Adult (2) kdr 01/16 03:46 Order name: CBC with Diff; Complete Time: 05:16 kdr 01/16 03:46 Order name: CMP; Complete Time: 05:16 kdr 01/16 03:46 Order name: Lactate; Complete Time: 05:16 kdr 01/16 03:46 Order name: Protime (+inr); Complete Time: 05:16 [facility] 01/16 03:46 Order name: Ptt, Activated; Complete Time: 05:16 [facility] 01/16 04:33 Order name: CBC Smear Scan; Complete Time: 05:16 [facility] 01/16 05:49 Order name: Troponin High Sensitivity; Complete Time: 07:14 sm5 01/16 07:23 Order name: Troponin HS bp 01/16 09:13 Order name: SARS-COV-2 RT PCR (Document "Date of Onset" if Symptomatic) 01/16 12:44 Order name: Prolactin [facility] 01/16 12:44 Order name: Thyroid Stimulating Hormone [facility] 01/16 12:44 Order name: CBC with Automated Diff [facility] 01/16 12:44 Order name: CBC with Automated Diff [facility] 01/16 03:46 Order name: Chest Single View XRAY [facility] 01/16 03:58 Order name: CT Head C Spine [facility] 01/16 07:31 Order name: CT Chest, Abdomen, Pelvis - W/Contrast; Complete Time: 08:38 [facility] 01/16 12:44 Order name: Echo with Doppler [facility] 01/16 12:44 Order name: Comprehensive Metabolic Panel [facility] 01/16 12:44 Order name: Comprehensive Metabolic Panel [facility] 01/16 12:44 Order name: Lipid Profile [facility] 01/16 12:44 Order name: Lipid Profile [facility] 01/16 12:44 Order name: Magnesium [facility] 01/16 12:44 Order name: Magnesium [facility] 01/16 12:44 Order name: Magnesium [facility] 01/16 12:44 Order name: Magnesium [facility] 01/16 12:44 Order name: Troponin High Sensitivity [facility] 01/16 12:44 Order name: Troponin High Sensitivity [facility] 01/16 12:44 Order name: Troponin High Sensitivity [facility] 01/16 03:46 Order name: Accucheck; Complete Time: 04:53 [facility] 01/16 03:46 Order name: Cardiac monitoring; Complete Time: 04:31 kdr 01/16 03:46 Order name: EKG - Nurse/Tech; Complete Time: 04:31 kdr 01/16 03:46 Order name: IV Saline Lock - Large Bore; Complete Time: 04:31 kdr 01/16 03:46 Order name: Labs collected and sent; Complete Time: 04:31 kdr 01/16 03:46 Order name: O2 Per Protocol; Complete Time: 04:31 kdr 01/16 03:46 Order name: O2 Sat Monitoring; Complete Time: 04:31 kdr 01/16 06:54 Order name: EKG Electrocardiogram; Complete Time: 06:55 [facility] 01/16 12:44 Order name: Heart Healthy EDMS Administered Medications: 04:32 Drug: morphine 4 mg Route: IVP; Site: left forearm; sm5 07:24 Follow up: Response: Pain is decreased bp 04:32 Drug: Zofran (Ondansetron) 4 mg Route: IVP; Site: left forearm; sm5 07:24 Follow up: Response: No adverse reaction bp 04:39 Drug: NS 0.9% 1000 ml Route: IV; Rate: 1 bolus; Site: left forearm; sm5 05:27 Drug: morphine 4 mg Route: IVP; Site: left forearm; sm5 07:24 Follow up: Response: Pain is decreased bp 05:27 Drug: Zofran (Ondansetron) 4 mg Route: IVP; Site: left forearm; sm5 07:24 Follow up: Response: No adverse reaction bp 06:55 Drug: fentaNYL (PF) 25 mcg Route: IVP; Site: left forearm; sm5 07:24 Follow up: Response: Pain is decreased bp 07:49 Drug: NS 0.9% 500 ml Route: IV; Rate: bolus; Site: right forearm; ap3 08:50 Follow up: IV Status: Completed infusion; IV Intake: 500ml ap3 08:50 Drug: NS 0.9% 1000 ml Route: IV; Rate: 75 ml/hr; Site: left forearm; ap3 09:05 Drug: fentaNYL (PF) 25 mcg Route: IVP; Site: left forearm; ap3 10:42 Follow up: Response: No adverse reaction ap3 Disposition Summary: 01/16/22 09:01 Hospitalization Ordered Hospitalization Status: Observation kdr Provider: Yue Carrion Condition: Fair kdr Problem: an acute exacerbation kdr Symptoms: have improved kdr Bed/Room Type: Standard kdr Location: Telemetry/MedSurg (observation)(01/16/22 15:28) bd Room Assignment: 221(01/16/22 15:28) bd Diagnosis - Weakness kdr - Chest pain, unspecified kdr - Upper abdominal pain, unspecified kdr Forms: - Medication Reconciliation Form kdr - SBAR form kdr Signatures: Dispatcher [employer] EDMS Jess Dietrich Kevin, MD MD kdr Sobia Lee RN RN iw Casandra Esteves RN RN ap3 Clover Brooke RN RN sm5 Sandra Mcconnell PA PA sb3 Roland Lozoya RN bp Corrections: (The following items were deleted from the chart) 09:01 Telemetry/MedSurg (observation) kdr iw 09:01 kdr iw 13:14 BR ER HOLD iw bd 13:14 ERHOLD- iw bd
--- NOTE | 2022-01-16 09:02 | ER ---
Nurse's Notes [facility] Name: Alexander Bowman Age: 61 yrs Sex: Male : 1960 Arrival Date: 01/16/2022 Time: 03:43 Bed 15 Private MD: Diagnosis: Weakness;Chest pain, unspecified;Upper abdominal pain, unspecified Presentation: 01/16 03:45 Chief complaint: EMS states: called ems for pt being weak. upon ems arrival, pt 5 slowly stopped responding. pt in bed with eyes open and mumbling when asked questions. Coronavirus screen: At this time, the client does not indicate any symptoms associated with coronavirus-19. Ebola Screen: No symptoms or risks identified at this time. Initial Sepsis Screen: Does the patient meet any 2 criteria? No. Patient's initial sepsis screen is negative. Does the patient have a suspected source of infection? No. Patient's initial sepsis screen is negative. Risk Assessment: Do you want to hurt yourself or someone else? Patient reports no desire to harm self or others. Onset of symptoms was January 16, 2022. 03:45 Method Of Arrival: EMS: [facility] 03:45 Acuity: JACEY 3 5 Triage Assessment: 03:45 General: Appears in no apparent distress. Behavior is unresponsive. Pain: Unable to use sm5 pain scale. mumbling speech. Neuro: Level of Consciousness is awake, Speech is slurred. Cardiovascular: Capillary refill < 3 seconds Patient's skin is warm and dry. Respiratory: Airway is patent Trachea midline Respiratory effort is even, unlabored. GI: Reports vomiting. Historical: - Allergies: 04:21 Aspirin; sm5 04:21 Codeine; sm5 04:21 Ibuprofen; sm5 04:21 Levofloxacin; sm5 04:21 mycins; sm5 04:21 PENICILLINS; sm5 04:21 Sulfa (Sulfonamide Antibiotics); sm5 04:21 Tylenol-Codeine #3; sm5 - Home Meds: 04:21 Viibryd 40 mg Oral tab [Active]; Advair Diskus 100-50 mcg/dose Inhl dsdv 1 puff 2 times sm5 per day [Active]; Aldactone 25 mg Oral tab 1 tab once daily [Active]; Dulera 100-5 mcg/actuation inhalation HFAA [Active]; fluticasone furoate 27.5 mcg/actuation nasal spsn [Active]; Imdur 60 mg Oral Tb24 1 tab once daily [Active]; metronidazole 500 mg Oral tab 1 tab 3 times per day [Active]; Nitrostat 0.4 mg SL subl 1 tab every 5 minutes [Active]; omeprazole 40 mg Oral cpDR 1 cap once daily [Active]; pravastatin 20 mg Oral tab 1 tab once daily [Active]; Robaxin 500 mg Oral tab TID [Active]; Saphris 5 mg sublingual subl 1 tab 2 times per day [Active]; Spiriva with HandiHaler 18 mcg inhalation CpDv [Active]; - PMHx: 04:21 Anxiety; Hypertension; COPD; Myocardial infarction; Pneumonia; Pneumothorax; sm5 - PSHx: 04:21 18" bowel removal; Stented artery; sm5 - Immunization history:: Adult Immunizations up to date. - Social history:: Smoking status: unknown. Screenin:29 Abuse screen: Denies threats or abuse. Denies injuries from another. Nutritional sm5 screening: No deficits noted. Tuberculosis screening: No symptoms or risk factors identified. Fall Risk No fall in past 12 months (0 pts). No secondary diagnosis (0 pts). IV access (20 points). Ambulatory Aid- None/Bed Rest/Nurse Assist (0 pts). Gait- Normal/Bed Rest/Wheelchair (0 pts) Mental Status- Oriented to own ability (0 pts). Total Love Fall Scale indicates No Risk (0-24 pts). Assessment: 04:10 Reassessment: this RN attempting to get ekg on pt. pt moving around in bed and not sm5 staying still. pt attempting to rip ekg leads off and get out of bed stating he is leaving. When asked what was wrong, pt stating he is having chest pain and cannot stay still. Dr. Guillen at bedside at this time. Pt fully awake and responding to all questions appropriately. 05:57 Reassessment: Patient and/or family updated on plan of care and expected duration. Pain sm5 level reassessed. 06:40 Reassessment: Patient and/or family updated on plan of care and expected duration. Pain sm5 level reassessed. Patient is alert, oriented x 3, equal unlabored respirations, skin warm/dry/pink. 08:43 Reassessment: Reassessment: patient resting, eyes closed. respirations are even an ap3 unlabored at this time. bed is locked in lowest position with siderails up X's 2, call light is within reach. 10:05 Reassessment: No changes from previously documented assessment. Patient and/or family ap3 updated on plan of care and expected duration. Pain level reassessed. Vital Signs: 03:45 BP 143 / 69; Pulse 86; Resp 16; Pulse Ox 100% on R/A; sm5 05:56 BP 99 / 59; Pulse 83; Resp 14; Pulse Ox 98% on R/A; sm5 06:40 BP 100 / 66; Pulse 82; Resp 20; Pulse Ox 98% on R/A; sm5 07:00 BP 108 / 72; Pulse 80; Resp 16; Pulse Ox 99% ; bp 08:42 BP 101 / 58; Pulse 74; Pulse Ox 97% on R/A; ap3 10:17 BP 103 / 55; Pulse 72; Pulse Ox 97% on R/A; ap3 10:49 BP 101 / 57; Pulse 70; Pulse Ox 97% on R/A; ap3 11:45 BP 100 / 62; Pulse 72; Temp 97.8(O); Pulse Ox 98% on R/A; ap3 12:38 BP 95 / 64; Pulse 65; Pulse Ox 96% on R/A; ap3 ED Course: 03:43 Patient arrived in ED. mw2 03:43 Robson Guillen MD is Attending Physician. kdr 04:15 Chest Single View XRAY In Process Unspecified. EDMS 04:17 Clover Brooke RN is Primary Nurse. sm5 04:21 Triage completed. sm5 04:22 Sophia [place] [phone]. mw2 04:30 Patient has correct armband on for positive identification. Bed in low position. Call sm5 light in reach. Side rails up X2. monitoring manager on. Pulse ox on. NIBP on. 04:30 Arm band placed on right wrist. sm5 04:31 Inserted saline lock: 20 gauge in left forearm, using aseptic technique. sm5 04:31 Lactate Sent. sm5 04:31 CMP Sent. sm5 04:31 Blood Culture Adult (2) Sent. sm5 04:35 CT Head C Spine In Process Unspecified. EDMS 05:56 Troponin High Sensitivity Sent. sm5 07:[address] via wheelchair. ap3 08:03 CT Chest, Abdomen, Pelvis - W/Contrast In Process Unspecified. EDMS 09:00 Yue Carrion MD is Hospitalizing Provider. kdr 09:17 SARS-COV-2 RT PCR (Document "Date of Onset" if Symptomatic) Sent. zm 12:23 Admitting physician to see patient. ap3 14:31 No provider procedures requiring assistance completed. Patient admitted, IV remains in ap3 place. Administered Medications: 04:32 Drug: morphine 4 mg Route: IVP; Site: left forearm; sm5 07:24 Follow up: Response: Pain is decreased bp 04:32 Drug: Zofran (Ondansetron) 4 mg Route: IVP; Site: left forearm; sm5 07:24 Follow up: Response: No adverse reaction bp 04:39 Drug: NS 0.9% 1000 ml Route: IV; Rate: 1 bolus; Site: left forearm; sm5 05:27 Drug: morphine 4 mg Route: IVP; Site: left forearm; sm5 07:24 Follow up: Response: Pain is decreased bp 05:27 Drug: Zofran (Ondansetron) 4 mg Route: IVP; Site: left forearm; sm5 07:24 Follow up: Response: No adverse reaction bp 06:55 Drug: fentaNYL (PF) 25 mcg Route: IVP; Site: left forearm; sm5 07:24 Follow up: Response: Pain is decreased bp 07:49 Drug: NS 0.9% 500 ml Route: IV; Rate: bolus; Site: right forearm; ap3 08:50 Follow up: IV Status: Completed infusion; IV Intake: 500ml ap3 08:50 Drug: NS 0.9% 1000 ml Route: IV; Rate: 75 ml/hr; Site: left forearm; ap3 09:05 Drug: fentaNYL (PF) 25 mcg Route: IVP; Site: left forearm; ap3 10:42 Follow up: Response: No adverse reaction ap3 Intake: 08:50 IV: 500ml; Total: 500ml. ap3 Outcome: 09:01 Decision to Hospitalize by Provider. kdr 14:31 Admitted to ER Hold. Please see [facility] for further documentation. ap3 14:31 Condition: good 14:31 Discharge instructions given to patient, Instructed on the need for admit, Demonstrated understanding of instructions. 16:45 Patient left the ED. ap3 Signatures: Dispatcher [employer] Robson Mcdonald MD MD kdr Peltier, Brian RN RN Casandra Fields RN RN ap3 Sue Fields [facility] Clover Brooke RN RN sm5 Lachelle Jones Corrections: (The following items were deleted from the chart) 04:21 04:17 Chief complaint: sm5 sm5 10:48 08:43 Reassessment: ap3 ap3
[2022-01-16] MEDS ORDERED: ACETAMINOPHEN 500 MG TAB PO PRN (12:38)
[2022-01-16] MEDS ORDERED: ALBUTEROL 2.5 MG/3 ML NEB SOL NEB PRN (12:38)
[2022-01-16] MEDS ORDERED: HYDRALAZINE HCL 20 MG/ML VIAL IV PRN (12:41)
[2022-01-16] MEDS ORDERED: LORAZEPAM 0.5 MG TABLET PO PRN (12:41)
--- NOTE | 2022-01-16 12:53 | P.HP ---
Certification for Inpatient Patient admitted to: Observation With expected LOS: >2 Midnights Patient will require the following post-hospital care: None Practitioner: I am a practitioner with admitting privileges, knowledge of patient current condition, hospital course, and medical plan of care. Services: Services provided to patient in accordance with Admission requirements found in Title 42 Section 412.3 of the Code of Federal Regulations Patient History Date of Service: 01/16/22 Primary Care Provider: Altered mental status, weakness, chest pain Reason for admission: Altered mental status, weakness, chest pain History of Present Illness: 61-year-old male with past medical history of hypertension, coronary disease status post multiple PCI's in the past, history of presumed CHF unknown EF, AICD placement, COPD presented because of increasing weakness. EMS was called by because patient has been very weak and unable to get up from the chair since the last 1 day. On arrival of EMS patient was very wea BUT was responsive. He was brought to the emergency room. Patient is unable to recall why he is in the hospital. He states he has no memory since last evening. He admits to having diarrhea abdominal cramps since the last 3 days after eating a restaurant. He admits to nausea but denies any vomiting. He is complaining of chest pain now he states chest pain is more in the epigastric area and appears to be radiating to the left shoulder blade. He denies any prior history of gallstones. On admission head CT shows no acute intracranial pathology. Chest CT shows no acute abnormality. EKG shows normal sinus rhythm with no ST segment changes, old Q waves in inferior lateral leads. CT of the abdomen shows evidence of mild sigmoid diverticulitis as well as antral gastritis. Patient has been admitted for altered mental status, sigmoid diverticulitis as well as atypical chest pain. Allergies acetaminophen [From Tylenol] Allergy (Verified 03/27/16 04:37) Rash codeine Allergy (Verified 03/27/16 04:37) Unknown levofloxacin [From Levaquin] Allergy (Verified 03/27/16 04:37) Unknown Penicillins Allergy (Verified 03/27/16 04:37) Unknown Sulfa (Sulfonamide Antibiotics) Allergy (Verified 03/27/16 04:37) Unknown vancomycin Allergy (Verified 05/27/16 20:08) Itching/Hives/Rash aspirin Adverse Reaction (Verified 03/27/16 04:37) Anaphylaxis Home Medications: Fluticasone [Flovent Hfa 110*] 1 puff IH BID PRN 03/27/16 Fluticasone/Salmeterol [Advair 500/50 Diskus*] 1 puff IH BID 03/27/16 Mometasone/Formoterol [Dulera 100 Mcg-5 Mcg Inhaler] 2 puff IH BID* PRN 03/27/16 Nitroglycerin [Nitrostat*] 0.4 mg SL PRN PRN 03/27/16 Temazepam [Restoril*] 15 mg PO BEDTIME 03/27/16 Tiotropium [place] [Spiriva] 2 spray IH DAILY 03/27/16 methocarbamoL [Robaxin*] 500 mg PO TID 03/27/16 Alprazolam [Xanax] 2 mg PO TID PRN #30 tablet 05/28/16 Dexlansoprazole [Dexilant] 30 mg PO TID 06/17/18 Enalapril [Vasotec*] 10 mg PO DAILY 06/17/18 carisoprodoL [Soma*] 350 mg PO TID 06/17/18 - Past Medical/Surgical History Diabetic: No -: [place] -: insomnia -: chronic pain syndrome -: anxiety -: depression -: COPD -: Detoriated disc in back -: heart stents -: pacemaker -: Pacemaker/defib -: stents X9 -: 18 in of colon removed -: L knee sx -: L elbow sx -: 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 -: Appendectomy - Family History Father -: Heart disease Mother -: Heart disease - Social History Smoking Status: Former smoker Smoking therapy provided: No Patient receptive to therapy: No Alcohol use: No CD- Drugs: No Caffeine use: Yes Place of Residence: Home Review of Systems 10-point ROS is otherwise unremarkable Cardiovascular: Chest Pain Gastrointestinal: Abdominal Pain Physical Examination - Physical Exam General: Alert, In no apparent distress, Oriented x3 HEENT: Atraumatic, Normocephalic, PERRLA, Other Neck: 2+ carotid pulse no bruit, JVD not distended Respiratory: Clear to auscultation bilaterally, Normal air movement Cardiovascular: No edema, Regular rate/rhythm, Normal S1 S2, Other (aicd insitu) Gastrointestinal: Normal bowel sounds, Soft and benign, Non-distended, Tenderness (epigastric area) Neurological: Normal gait, Normal speech, Normal strength at 5/5 x4 extr External genitalia: No edema, No lesions - Studies Laboratory Data (last 24 hrs) 01/16/22 04:10: PT 13.6 H, INR 1.23, APTT 31.4 01/16/22 04:10: Sodium 140, Potassium 4.5, BUN 32 H, Creatinine 1.40 H, Glucose 86, Total Bilirubin 1.0, AST 6 L, ALT 11 L, Alkaline Phosphatase 64 01/16/22 04:10: WBC 15.1 H, Hgb 10.6 L, Hct 32.7 L, Plt Count 412 H Microbiology Data (last 24 hrs): 01/16/22 04:23 Blood - Blood Anaerobic Blood Culture - Final 01/16/22 04:10 Blood - Blood Anaerobic Blood Culture - Final Assessment and Plan - Problems (Diagnosis) (1) AMS (altered mental status) Current Visit: Yes Status: Acute (2) Sigmoid diverticulitis Current Visit: Yes Status: Acute (3) Chest pain Onset Date: 03/28/16 Current Visit: No Status: Acute Qualifiers: (4) Chronic obstructive pulmonary disease (COPD) Onset Date: 03/28/16 Current Visit: No Status: Acute Qualifiers: (5) History of implantable cardioverter-defibrillator (ICD) placement Current Visit: No Status: Acute (6) CHF (congestive heart failure) Current Visit: No Status: Chronic Qualifiers: Discharge Plan: Home Plan to discharge in: 24 Hours - Advance Directives Does patient have a Living Will: No Does patient have a Durable POA for Healthcare: Yes Physician Review: Patient Assessed, Agree with Above Assessment and Plan Physician Review Additional Text: IMPRESSION: CT chest imaging shows no acute or suspicious finding. Suspected gastric antritis. This needs clinical correlation. Suspected mild diverticulitis in the proximal sigmoid colon also needing correlation with clinical presentation. No free air, obstruction or other surgically emergent finding Impression Altered mental statuslikely due to weakness from recent volume loss from diarrhea Antral gastritis Sigmoid diverticulitislikely cause of diarrhea History of AICD/CHF/COPDstable History of CAD status post PCI Atypical chest painlikely due to gastritis, rule out acute coronary syndrome although less likely Plan 1 atypical chest painwe will do serial set of cardiac enzyme Monitor trend Likely due to gastritis Restart PPIpreviously on 3 times daily patient's home dose currently on twice daily, restart as PPI 3 times daily follow May need GI evaluation when diverticulitis resolve Sigmoid diverticulitiswith associated recent diarrhea Start empirical Levaquin and Flagyl Follow WBC trendcurrently elevated Borderline hypotensionlikely cause of weakness, monitor blood pressure Gentle IV fluid although history of CHF noted Hold blood pressure medications for now History of CHFstable, continue ICD monitoring telemetry DVT prophylaxissubcutaneous Lovenox Advance directivefull code Critical Care: Yes Time Spent Managing Pts Care (In Minutes): 70
[2022-01-16] MEDS ORDERED: NA CHLORIDE 0.9% 1,000 ML IV SCH (13:00)
[2022-01-16 13:08] VITALS: BMI 27.3
[2022-01-16] MEDS: MORPHINE 2 MG/ML SYR IV PRN ×3 (13:17→21:09)
[2022-01-16] MEDS ORDERED: MORPHINE 2 MG/ML SYR ONE (13:18)
[2022-01-16] MEDS: methocarbamoL 500 MG TAB PO SCH ×2 (14:00→20:29)
[2022-01-16] MEDS ORDERED: HOME MED 1 EA UNK (Dexlansoprazole [Dexilant] 30 MG Cap.Dr.Bp) PO SCH (14:00)
[2022-01-16] MEDS: metroNIDAZOLE 500 MG TABLET PO SCH ×2 (14:00→20:30)
[2022-01-16 14:17] LABS: Magnesium 1.8 mg/dL (1.8-2.4); Thyroid Stimulating Hormone 1.9 uIU/mL (0.360-3.740)
[2022-01-16] MEDS ORDERED: methocarbamoL 500 MG TAB ONE (15:08)
[2022-01-16] MEDS ORDERED: metroNIDAZOLE 500 MG TABLET ONE (15:08)
--- NOTE | 2022-01-16 20:05 | RAD REPORT ---
EXAM DESCRIPTION: RAD - Chest Single View - 01/16/2022 4:13 am CLINICAL HISTORY: The patient is 61 years old and is Male; AMS TECHNIQUE: Frontal view of the chest. COMPARISON: No relevant prior studies available. FINDINGS: LUNGS: Unremarkable. No consolidation. PLEURAL SPACE: Unremarkable. No pneumothorax. HEART: Unremarkable. No cardiomegaly. MEDIASTINUM: Unremarkable. BONES/JOINTS: Unremarkable. TUBES, LINES AND DEVICES: A left-sided pacemaker is present. UPPER ABDOMEN: Unremarkable as visualized. IMPRESSION: No acute cardiopulmonary process. Electronically signed by: Arely Vital MD 01/16/2022 4:24 AM CDT Due to temporary technical issues with the PACS/Fluency reporting system, reports are being signed by the in house radiologists without review as a courtesy to insure prompt reporting. The interpreting radiologist is fully responsible for the content of the report
--- NOTE | 2022-01-16 20:07 | RAD REPORT ---
EXAM DESCRIPTION: CT - [id number] - 01/16/2022 7:16 am CLINICAL HISTORY: Ams COMPARISON: None available TECHNIQUE: Axial CT of the head obtained from the skull apex to the skull base without contrast. Axi al CT images of the cervical spine obtained from the skull base through the thoracic inlet. Sagittal and coronal reformatted images available. This exam was performed according to our departmental dose- optimization program, which includes automated exposure control, adjustment of the mA and/or kV accor ding to patient size and/or use of iterative reconstruction technique. FINDINGS: CT head: No acute intracranial hemorrhage identified. No mass, mass effect, shift of the midline, abnormal ext ra-axial fluid collection or CT evidence of acute ischemic change identified. The ventricular system is unremarkable. Scattered hypodensity in the supratentorial white matter are nonspecific and may r epresent sequela of chronic small vessel ischemic change. The visualized paranasal sinuses and the mastoids are clear. No skull fracture identified. Visual ized orbits and globes are unremarkable. Atherosclerotic calcification of the intracranial internal c arotid arteries. Cervical CT: Alignment of the cervical spine is maintained without evidence of subluxation. The atlantoaxial, at lantodental, and occipitoatlantal intervals are preserved. No fracture identified. Vertebral body h eight preserved. Prevertebral soft tissues are unremarkable. Intervertebral disc height preserved. Minimal endplate spondylosis. Visualized skull base is intact. No fracture of the visualized facial bones. Visualized mastoid air c ells and paranasal sinuses are well aerated. Visualized thyroid is unremarkable. No cervical lymphadenopathy. No pneumothorax in the visualized lung apices. IMPRESSION: 1. No acute intracranial abnormality. 2. No acute fracture or subluxation of the cervical spine. Electronically signed by: Acosta Levine 01/16/2022 4:55 AM CDT Due to temporary technical issues with the PACS/Fluency reporting system, reports are being signed by the in house radiologists without review as a courtesy to insure prompt reporting. The interpreting radiologist is fully responsible for the content of the report
[2022-01-16] MEDS: ALPRAZOLAM 1 MG TABLET PO PRN (20:28)
[2022-01-16] MEDS: ONDANSETRON 4 MG/2 ML VIAL IV PRN (20:28)
[2022-01-16] MEDS: SALMETEROL IH SCH (20:30)
[2022-01-16] MEDS: FLUTICASONE IH SCH (20:30)
[2022-01-16] MEDS: DISK DISK IH SCH (20:30)
[2022-01-16] MEDS: FAMOTIDINE 20 MG TAB PO SCH (20:31)
[2022-01-16] MEDS ORDERED: MORPHINE 2 MG/ML SYR IV ONE (22:02)
[2022-01-16] MEDS: PROMETHAZINE INJ 25 MG/ML AMP IV PRN (22:14)
[2022-01-16] MEDS ORDERED: NITROGLYCERIN 0.4 MG/TAB SL PRN (23:51)
[2022-01-17] MEDS: MORPHINE 2 MG/ML SYR IV PRN ×6 (01:07→21:41)
[2022-01-17] MEDS: ONDANSETRON 4 MG/2 ML VIAL IV PRN ×2 (02:03→18:50)
[2022-01-17 03:52] LABS: Absolute Lymphocytes (CBC) 2.1 K/uL (0.7-4.9); Hematocrit 31.3 % (39.6-49.0); MPV 7.4 fL (7.6-11.3); RBC Red Blood Cell Count 4.13 M/uL (4.33-5.43)
[2022-01-17 04:09] LABS: Albumin 2.1 g/dL (3.4-5.0); Bilirubin Total 0.3 mg/dL (0.2-1.0); Potassium 4.6 mmol/L (3.5-5.1); Protein, Total 6.2 g/dL (6.4-8.2)
[2022-01-17] MEDS: PROMETHAZINE INJ 25 MG/ML AMP IV PRN ×5 (04:37→21:39)
[2022-01-17] MEDS: DISK DISK IH SCH ×2 (09:00→21:00)
[2022-01-17] MEDS ORDERED: ASPIRIN EC 81 MG TAB PO SCH (09:00)
[2022-01-17] MEDS: SALMETEROL IH SCH ×2 (09:00→21:00)
[2022-01-17] MEDS ORDERED: PANTOPRAZOLE 40MG TABLET PO SCH (09:00)
[2022-01-17] MEDS: FLUTICASONE IH SCH ×2 (09:00→21:00)
[2022-01-17] MEDS: SPIRIVA 18 MCG IH SCH (09:00)
[2022-01-17] MEDS: ENOXAPARIN 40 MG/0.4 ML SQ SCH (09:13)
--- NOTE | 2022-01-17 09:36 | EKG ---
Test Date: 2022-01-16 Test Time: 06:53:50 Commercial Decorator: ANGEL MEASUREMENT RESULTS: Intervals: Rate: 89 UT: 152 QRSD: 84 QT: 366 QTc: 445 [place]: P: 29 UT: 152 QRS: 40 T: 108 INTERPRETIVE STATEMENTS: Normal sinus rhythm Inferior infarct, age undetermined Abnormal ECG Compared to ECG 01/16/2022 04:07:22 Atrial premature complex(es) no longer present Aberrant conduction of supraventricular beat(s) no longer present Myocardial infarct finding still present Electronically Signed On 01-17-22 09:32:04 CDT by Flakito Oscar
[2022-01-17] MEDS: FAMOTIDINE 20 MG TAB PO SCH ×2 (09:47→21:40)
[2022-01-17] MEDS: methocarbamoL 500 MG TAB PO SCH ×3 (09:47→21:40)
[2022-01-17] MEDS: metroNIDAZOLE 500 MG TABLET PO SCH ×3 (09:48→21:40)
--- NOTE | 2022-01-17 10:09 | P.PN ---
Subjective Date of Service: 01/17/22 Primary Care Provider: Altered mental status, weakness, chest pain Chief Complaint: Altered mental status, weakness, chest pain Subjective: No new changes (Still persistent gastric pain) Physical Examination - Vital Signs Temperature: 97 F Blood Pressure: 143/89 Pulse: 75 Respirations: 16 Pulse Ox (%): 94 - Studies Microbiology Data (last 24 hrs): 01/16/22 04:23 Blood - Blood Anaerobic Blood Culture - Final 01/16/22 04:10 Blood - Blood Anaerobic Blood Culture - Final Assessment And Plan - Current Problems (Diagnosis) (1) AMS (altered mental status) Current Visit: Yes Status: Acute (2) Sigmoid diverticulitis Current Visit: Yes Status: Acute (3) Chest pain Onset Date: 03/28/16 Current Visit: No Status: Acute Qualifiers: (4) Chronic obstructive pulmonary disease (COPD) Onset Date: 03/28/16 Current Visit: No Status: Acute Qualifiers: (5) History of implantable cardioverter-defibrillator (ICD) placement Current Visit: No Status: Acute (6) CHF (congestive heart failure) Current Visit: No Status: Chronic Qualifiers: Physician Review: Patient Assessed, Agree with Above Assessment and Plan Physician Review Additional Text: IMPRESSION: CT chest imaging shows no acute or suspicious finding. Suspected gastric antritis. This needs clinical correlation. Suspected mild diverticulitis in the proximal sigmoid colon also needing correlation with clinical presentation. No free air, obstruction or other surgically emergent finding Physical examination Generalmiddle-aged male, , anxious, on room air HEENTPERRLA, EOMI Respiratorygood air entry, no crepitation CardiovascularS1-S2 rate and rhythm regular GImild/moderate epigastric tenderness, no rebound, bowel sounds positive Extremitiesno pedal edema no calf tenderness Neuroalert oriented x3 Impression Altered mental statuslikely due to weakness from recent volume loss from diarrhearesolved Antral gastritis Sigmoid diverticulitislikely cause of diarrhea Metabolic acidosis History of AICD/CHF/COPDstable History of CAD status post PCI Atypical chest painlikely due to gastritis, rule out acute coronary syndrome although less likely Plan Epigastric tendernesspossibly due to gastritis Continue PPI 3 times daily Consult GI for possible EGD Obtain lipase level to rule out associated pancreatitis although CT negative for pancreatitis Atypical chest painresolved Status post negative cardiac enzymes Likely due to gastritis Sigmoid diverticulitiswith associated recent diarrhea Continue empirical Levaquin and Flagyl WBC trend in the Borderline hypotensionresolved Metabolic acidosislikely due to GI loss, renal consult History of CHFstable, continue ICD monitoring telemetry DVT prophylaxissubcutaneous Lovenox Advance directivefull code 01/17/22 10:06
--- NOTE | 2022-01-17 10:33 | ECHO ---
HEIGHT: 6 ft 0 in WEIGHT: 202 lb 0 oz DATE OF STUDY: 01/16/[address]: Yue Carrion MD 2-DIMENSIONAL: YES M.MODE: YES DOPPLER: YES COLOR FLOW: YES TDS: NO PORTABLE: YES DEFINITY: NO BUBBLE STUDY: NO DIAGNOSIS: CVA, RULE OUT VEGETATIONS CARDIAC HISTORY: CATHERIZATION:YES SURGERY: NO PROSTHETIC VALVE: NO PACEMAKER: YES MEASUREMENTS (cm) DIASTOLIC (NORMALS) SYSTOLIC (NORMALS) IVSd 1.1 (0.6-1.2) LA Diam 2.5 (1.9-4.0) LVEF 53% LVIDd 3.8 (3.5-5.7) LVIDs 2.8 (2.0-3.5) %FS 27% LVPWd 1.2 (0.6-1.2) Ao Diam 3.2 (2.0-3.7) 2 DIMENSIONAL ASSESSMENT: RIGHT ATRIUM: NORMAL LEFT ATRIUM: NORMAL RIGHT VENTRICLE: NORMAL LEFT VENTRICLE: NORMAL TRICUSPID VALVE: NORMAL MITRAL VALVE: NORMAL PULMONIC VALVE: NORMAL AORTIC VALVE: SCLEROSIS PERICARDIAL EFFUSION: NONE AORTIC ROOT: NORMAL LEFT VENTRICULAR WALL MOTION: NORMAL DOPPLER/COLOR FLOW: NORMAL COMMENTS: NORMAL LEFT VENTRICULAR SIZE AND FUNCTION. AORTIC SCLEROSIS. NO VEGETATION. TECHNOLOGIST: Jam ANDERSEN
[2022-01-17] MEDS: DIPHENHYDRAMINE 12.5MG/5ML LIQ PO SCH ×2 (11:07→21:39)
[2022-01-17] MEDS: MAGNES/ALUMIN/SIMET 30ML UCUP PO SCH ×2 (11:09→21:39)
[2022-01-17] MEDS: LIDOCAINE VISCOUS 2% SOLN 15 ML UDC PO SCH ×2 (11:10→21:39)
[2022-01-17 15:04] LABS: Urine Appearance Clear (Clear); Urine Bilirubin Negative (Negative); Urine Blood Negative (Negative); Urine Color Yellow (Yellow); Urine Glucose Negative (Negative); Urine Protein Negative (Negative); Urine Urobilinogen 0.2 mg/dL (0.2-1.0)
[2022-01-17 15:07] LABS: UR PROTEIN 30.7 mg/dL (<11.9); Urine Protein/Creatinine Ratio 0.47 ratio (<0.15)
[2022-01-17 15:15] LABS: Urine Microscopic Reflex ORDER UMIC
[2022-01-17 15:23] LABS: Urine Bacteria <20 /HPF (NONE SEEN); Urine RBC <5 /HPF (NONE SEEN)
[2022-01-17] MEDS ORDERED: HYDROMORPHONE HCL 1 MG/ML INJ IV ONE (19:17)
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
[2022-01-17] MEDS: PANTOPRAZOLE 40MG TABLET PO SCH (21:41)
[2022-01-18] MEDS: MORPHINE 2 MG/ML SYR IV PRN ×6 (01:11→22:00)
[2022-01-18] MEDS: PROMETHAZINE INJ 25 MG/ML AMP IV PRN ×4 (01:11→22:00)
[2022-01-18 04:22] LABS: RBC Red Blood Cell Count 4.71 M/uL (4.33-5.43)
[2022-01-18 05:03] LABS: Albumin 2.3 g/dL (3.4-5.0); Ferritin 26.5 ng/mL (26-388); Folic Acid, (Folate) 7.7 ng/mL (3.1-17.5); Phosphorus 2.2 mg/dL (2.5-4.9); Potassium 4.2 mmol/L (3.5-5.1)
[2022-01-18] MEDS: ONDANSETRON 4 MG/2 ML VIAL IV PRN ×3 (07:01→23:48)
[2022-01-18] MEDS: SPIRIVA 18 MCG IH SCH (09:00)
[2022-01-18] MEDS: FLUTICASONE IH SCH ×2 (09:00→21:00)
[2022-01-18] MEDS: SALMETEROL IH SCH ×2 (09:00→21:00)
[2022-01-18] MEDS: DISK DISK IH SCH ×2 (09:00→21:00)
[2022-01-18] MEDS ORDERED: Ringers Lactate 1,000 ML IV ONE (09:45)
[2022-01-18] MEDS ORDERED: propofoL 200 MG/20 ML VIAL IV ONE ×2 (10:21)
[2022-01-18] MEDS ORDERED: LIDOCAINE 1% MPF 5 ML VIAL ONE (10:22)
--- NOTE | 2022-01-18 10:37 | P.PN ---
Subjective Date of Service: 01/18/22 Primary Care Provider: Altered mental status, weakness, chest pain Chief Complaint: Altered mental status, weakness, chest pain Subjective: No new changes (Still persistent epigastric pain discussed with yesterday, she reports recent EGD at [facility] 3 months ago. Patient was told of gastric ulcer by GI. And started on increased PPI as well as simethicone. simethicone was giving him nausea and patient has stopped taking m eds since 2 wks) Physical Examination - Vital Signs Temperature: 97.7 F Blood Pressure: 126/73 Pulse: 77 Respirations: 18 Pulse Ox (%): 100 - Studies Laboratory Data (last 24 hrs) 01/18/22 04:10: Sodium 138, Potassium 4.2, BUN 17, Creatinine 0.97, Glucose 102, Phosphorus 2.2 L, Magnesium 2.0 01/17/22 12:20: Lipase 76 01/17/22 12:20: Magnesium 1.9 Assessment And Plan - Current Problems (Diagnosis) (1) AMS (altered mental status) Current Visit: Yes Status: Acute (2) Sigmoid diverticulitis Current Visit: Yes Status: Acute (3) Chest pain Onset Date: 03/28/16 Current Visit: No Status: Acute Qualifiers: (4) Chronic obstructive pulmonary disease (COPD) Onset Date: 03/28/16 Current Visit: No Status: Acute Qualifiers: (5) History of implantable cardioverter-defibrillator (ICD) placement Current Visit: No Status: Acute (6) CHF (congestive heart failure) Current Visit: No Status: Chronic Qualifiers: Physician Review: Patient Assessed, Agree with Above Assessment and Plan Physician Review Additional Text: IMPRESSION: CT chest imaging shows no acute or suspicious finding. Suspected gastric antritis. This needs clinical correlation. Suspected mild diverticulitis in the proximal sigmoid colon also needing correlation with clinical presentation. No free air, obstruction or other surgically emergent finding Physical examination Generalmiddle-aged male, , anxious, on room air HEENTPERRLA, EOMI Respiratorygood air entry, no crepitation CardiovascularS1-S2 rate and rhythm regular GImild/moderate epigastric tenderness, no rebound, bowel sounds positive Extremitiesno pedal edema no calf tenderness Neuroalert oriented x3 Impression Altered mental statuslikely due to weakness from recent volume loss from diarrh earesolved Antral gastritis Sigmoid diverticulitislikely cause of diarrhea Metabolic acidosis History of AICD/CHF/COPDstable History of CAD status post PCI Atypical chest painlikely due to gastritis, rule out acute coronary syndrome although less likely Plan Epigastric tendernesspossibly due to worsening gastritis/gastric ulcer GI consult and possible EGD today Continue PPI twice daily Normal lipase level as well as CT negative for pancreatitis Atypical chest painresolved Status post negative cardiac enzymes Likely due to gastritis Sigmoid diverticulitiswith associated recent diarrhea Continue empirical Levaquin and Flagyl WBC trending down Borderline hypotensionresolved Metabolic acidosisresolving, likely due to GI loss History of CHFstable, continue ICD monitoring telemetry DVT prophylaxissubcutaneous Lovenox Advance directivefull code 01/18/22 10:39
--- NOTE | 2022-01-18 11:07 | ENDO RPT ---
[address], [address] EGD PROCEDURE REPORT EXAM DATE: 01/18/2022 PATIENT NAME: Alexander Bowman MR#: [id number] BIRTHDATE: 1960 ATTENDING: Ray Gupta Dr STATUS: inpatient - [facility] ASSESSMENT SPECIALIST: Patti Mcdermott RN and Marcie Gordon INDICATIONS: The patient is a 61 yr old Male here for an EGD due to mid epigastric abdominal pain, nausea and vomiting, history of large gastric ulcer for years (Iby patient report) and hematemesis PROCEDURE PERFORMED: EGD with biopsy MEDICATIONS: Per Anesthesia. TOPICAL ANESTHETIC: none CONSENT: The patient understands the risks and benefits of the procedure and understands that these risks include, but are not limited to: sedation, allergic reaction, infection, perforation and/or bleeding. Alternative means of evaluation and treatment include, among others: physical exam, x-rays, and/or surgical intervention. The patient elects to proceed with this endoscopic procedure. DESCRIPTION OF PROCEDURE: During intra-op preparation period all mechanical medical equipment was checked for proper function. Hand hygiene and appropriate measures for infection prevention was taken. Procedure, possible complications, and alternatives including but not limited to the possibility of bleeding, perforation, tear, infection, sepsis, need for surgery, need for blood transfusion, and anesthesia related complications were explained to the patient. After the risks, benefits and alternatives of the procedure were thoroughly explained, Informed consent was verified, confirmed and timeout was successfully executed by the treatment team. The patient was placed in the left lateral position. The patient was anesthetized with topical anesthesia. Through the anesthetized oropharyngeal area, the scope was passed without any difficulty. The EG-[id number] ([id number]) endoscope was introduced through the mouth and advanced to the stomach antrum. Retroflexed views revealed no abnormalities. The gastroscope was then slowly withdrawn and removed. Retained food was present in the body of the stomach. Large 10 cm clean-based ulcer with heaped up edges and extending into the pylorus with retained food partilly covering ulcer at pylorus was found in the antrum. Multiple biopsies were obtained and sent to pathology. Mild gastritis was found in the antrum. Multiple biopsies were obtained and sent to pathology. ADVERSE EVENTS: There were no complications. IMPRESSIONS: 1. Moderate amount of retained solid = liquid food / bile fluid (partially suctioned out with endoscope) in the body of the stomach 2. Large 10 cm clean-based ulcer with heaped up edges and extending into the pylorus with retained food partilly covering ulcer at pylorus in the antrum, s/p biopsies 3. Mild gastritis in the antrum, s/p biopsies RECOMMENDATIONS: 1. await biopsy results 2. acid suppression therapy 3. check gastrin level 4. surgery consult inpatient / outpatient for large ulcer evaluation / therapy (high risk of neoplasia) REPEAT EXAM: Return in 3 month(s) for EGD. Ray Gutpa Dr eSigned: Ray Gupta Dr 01/18/2022 11:07 AM cc: CPT CODES: ICD9 CODES: PATIENT NAME: Alexander Bowman MR#: [id number]
[2022-01-18] MEDS: DIPHENHYDRAMINE 12.5MG/5ML LIQ PO SCH ×2 (12:17→21:15)
[2022-01-18] MEDS: methocarbamoL 500 MG TAB PO SCH ×3 (12:18→21:16)
[2022-01-18] MEDS: LIDOCAINE VISCOUS 2% SOLN 15 ML UDC PO SCH ×2 (12:18→21:15)
[2022-01-18] MEDS: MAGNES/ALUMIN/SIMET 30ML UCUP PO SCH ×2 (12:18→21:15)
[2022-01-18] MEDS: metroNIDAZOLE 500 MG TABLET PO SCH ×3 (12:19→21:16)
[2022-01-18] MEDS: FAMOTIDINE 20 MG TAB PO SCH ×2 (12:19→21:16)
[2022-01-18] MEDS: ENOXAPARIN 40 MG/0.4 ML SQ SCH (12:19)
[2022-01-18] MEDS: PANTOPRAZOLE 40MG TABLET PO SCH ×2 (12:20→21:16)
--- NOTE | 2022-01-18 12:58 | EKG ---
Test Date: 2022-01-17 Test Time: 19:32:19 Telephone Supervisor: SREG MEASUREMENT RESULTS: Intervals: Rate: 99 NJ: 166 QRSD: 96 QT: 348 QTc: 446 [place]: P: 29 NJ: 166 QRS: 18 T: 89 INTERPRETIVE STATEMENTS: Normal sinus rhythm Inferior infarct, age undetermined Anterior infarct, age undetermined Abnormal ECG Compared to ECG 01/16/2022 23:45:41 No significant changes Electronically Signed On 01-18-22 12:57:31 CDT by Flakito Oscar
--- NOTE | 2022-01-18 13:00 | EKG ---
Test Date: 2022-01-16 Test Time: 23:45:41 Aix System Administrator: RT-O MEASUREMENT RESULTS: Intervals: Rate: 80 NE: 164 QRSD: 92 QT: 376 QTc: 433 [place]: P: 26 NE: 164 QRS: 22 T: 85 INTERPRETIVE STATEMENTS: Normal sinus rhythm Inferior infarct, age undetermined Anterior infarct, age undetermined Abnormal ECG Compared to ECG 01/16/2022 06:53:50 No significant changes Electronically Signed On 01-18-22 12:57:41 CDT by Flakito Oscar
[2022-01-18] MEDS: METOCLOPRAMIDE 5 MG TAB PO SCH ×2 (18:24→21:16)
--- NOTE | 2022-01-18 19:09 | PN ---
Date of Progress Note: 01/18/2022 Subjective: The patient was admitted with abdominal pain, nausea and vomiting, fatigue, found to have acidosis. Physical Examination: Vital Signs: Blood pressure of 102/57, pulse of 78, afebrile. Chest: Clear to auscultation. Heart: S1, S2, no murmur no gallop Abdomen: Mild tenderness on the right side. No guarding or rebound. Extremities: No edema. Neurologic: Alert, no focality. Laboratory Data: WBC 10.6, H and H 9.8/31.3. Sodium 138, potassium 4.2, bicarb 22, BUN 17, creatinine 0.9, calcium 8.7. Current Medications: Include metronidazole, promethazine, Flagyl, hydralazine, Lovenox, alprazolam. Assessment And Plan: 1. Acidosis, non-anion gap metabolic acidosis secondary to short colon syndrome. The patient was started on bicarb, recovering very well. We will continue to monitor. 2. Hypertension, controlled, optimal. Continue on current medication. 3. Hyponatremia, secondary to depletion, resolved. 4. Anemia, stable, secondary to iron deficiency. We will start supplement. KIM/ELI Voice ID: [id number] Report ID: [id number] KODY
[2022-01-18] MEDS: ENSURE ENLIVE 237 ML CAN PO SCH (21:18)
[2022-01-19] MEDS ORDERED: HYDROMORPHONE HCL 1 MG/ML INJ IV ONE (00:05)
[2022-01-19] MEDS: PROMETHAZINE INJ 25 MG/ML AMP IV PRN ×6 (02:45→23:51)
[2022-01-19] MEDS: MORPHINE 2 MG/ML SYR IV PRN ×6 (02:45→23:50)
[2022-01-19 04:32] LABS: Albumin 2.3 g/dL (3.4-5.0); Phosphorus 2.3 mg/dL (2.5-4.9); Potassium 4.3 mmol/L (3.5-5.1)
[2022-01-19] MEDS: LIDOCAINE VISCOUS 2% SOLN 15 ML UDC PO SCH ×2 (08:06→21:27)
[2022-01-19] MEDS: MAGNES/ALUMIN/SIMET 30ML UCUP PO SCH ×2 (08:06→21:27)
[2022-01-19] MEDS: ENOXAPARIN 40 MG/0.4 ML SQ SCH (08:07)
[2022-01-19] MEDS: METOCLOPRAMIDE 5 MG TAB PO SCH ×4 (08:07→21:28)
[2022-01-19] MEDS: methocarbamoL 500 MG TAB PO SCH ×3 (08:07→21:28)
[2022-01-19] MEDS: DIPHENHYDRAMINE 12.5MG/5ML LIQ PO SCH ×2 (08:07→21:27)
[2022-01-19] MEDS: FAMOTIDINE 20 MG TAB PO SCH (08:09)
[2022-01-19] MEDS: PANTOPRAZOLE 40MG TABLET PO SCH (08:09)
[2022-01-19] MEDS: metroNIDAZOLE 500 MG TABLET PO SCH ×3 (08:09→21:28)
[2022-01-19] MEDS: DISK DISK IH SCH ×2 (08:10→21:00)
[2022-01-19] MEDS: FLUTICASONE IH SCH ×2 (08:10→21:00)
[2022-01-19] MEDS: ENSURE ENLIVE 237 ML CAN PO SCH ×2 (08:10→21:28)
[2022-01-19] MEDS: SPIRIVA 18 MCG IH SCH (08:10)
[2022-01-19] MEDS: SALMETEROL IH SCH ×2 (08:10→21:00)
[2022-01-19] MEDS: PANTOPRAZOLE INJ 80 MG in NA CHLORIDE 0.9% 250 ML IV SCH ×2 (11:26→21:00)
--- NOTE | 2022-01-19 13:05 | P.PN ---
Subjective Date of Service: 01/19/22 Primary Care Provider: Altered mental status, weakness, chest pain Chief Complaint: Altered mental status, weakness, chest pain Subjective: No new changes (Status post EGD yesterday, biopsy of large ulcer taking) Physical Examination - Vital Signs Temperature: 97.2 F Blood Pressure: 112/66 Pulse: 68 Respirations: 18 Pulse Ox (%): 96 Assessment And Plan - Current Problems (Diagnosis) (1) AMS (altered mental status) Current Visit: Yes Status: Acute (2) Sigmoid diverticulitis Current Visit: Yes Status: Acute (3) Chest pain Onset Date: 03/28/16 Current Visit: No Status: Acute Qualifiers: (4) Chronic obstructive pulmonary disease (COPD) Onset Date: 03/28/16 Current Visit: No Status: Acute Qualifiers: (5) History of implantable cardioverter-defibrillator (ICD) placement Current Visit: No Status: Acute (6) CHF (congestive heart failure) Current Visit: No Status: Chronic Qualifiers: Physician Review: Patient Assessed, Agree with Above Assessment and Plan Physician Review Additional Text: IMPRESSION: CT chest imaging shows no acute or suspicious finding. Suspected gastric antritis. This needs clinical correlation. Suspected mild diverticulitis in the proximal sigmoid colon also needing correlation with clinical presentation. No free air, obstruction or other surgically emergent finding Physical examination Generalmiddle-aged male, , anxious, on room air HEENTPERRLA, EOMI Respiratorygood air entry, no crepitation CardiovascularS1-S2 rate and rhythm regular GImild/moderate epigastric tenderness, no rebound, bowel sounds positive Extremitiesno pedal edema no calf tenderness Neuroalert oriented x3 Impression Altered mental statuslikely due to weakness from recent volume loss from diarrhearesolved Gastric ulcer with gastritis Medication noncompliance Sigmoid diverticulitislikely cause of diarrhea Metabolic acidosis History of AICD/CHF/COPDstable History of CAD status post PCI Atypical chest painlikely due to gastritis, rule out acute coronary syndrome although less likely Plan Large gastric ulcerdue to medication noncompliance, status postbiopsy of ulcer area taking Given thickened gastric wall as well as retained food in stomach, possible dysmotility, add Reglan Follow biopsy General surgery discussed with, given possibility of cancer, will start patient on PPN for now if unable to tolerate clear liquids Continue PPI twice daily Normal lipase level as well as CT negative for pancreatitis Atypical chest painresolved Status post negative cardiac enzymes Likely due to gastritis Sigmoid diverticulitiswith associated recent diarrhearesolved continue Flagyl WBC trending down Borderline hypotensionresolved Metabolic acidosisresolving, likely due to GI loss History of CHFstable, continue ICD monitoring telemetry DVT prophylaxissubcutaneous Lovenox Advance directivefull code 01/19/22 13:03
--- NOTE | 2022-01-19 13:05 | P.PN ---
Subjective Date of Service: 01/19/22 Primary Care Provider: Altered mental status, weakness, chest pain Chief Complaint: DWIGHT pain, altered mental status, weakness, chest pain Subjective: Improving (DWIGHT pain due to large 10 cm antral ulcer extending into the pylorus with partial obstruction resulting in retained food on EGD yesterday.) Physical Examination - Vital Signs Temperature: 97.2 F Blood Pressure: 112/66 Pulse: 68 Respirations: 18 Pulse Ox (%): 96 - Physical Exam General: Alert, In no apparent distress, Oriented x3, Cooperative HEENT: Atraumatic, Normocephalic, PERRLA, EOMI Neck: Supple Respiratory: Normal air movement Cardiovascular: Normal pulses Gastrointestinal: Tenderness Neurological: Normal speech, Normal strength at 5/5 x4 extr Assessment And Plan - Current Problems (Diagnosis) (1) Gastric ulcer Current Visit: Yes Status: Acute (2) Epigastric abdominal pain Current Visit: Yes Status: Acute (3) Nausea & vomiting Current Visit: Yes Status: Acute (4) AMS (altered mental status) Current Visit: Yes Status: Acute (5) Sigmoid diverticulitis Current Visit: Yes Status: Acute (6) Chest pain Onset Date: 06/20/18 Current Visit: No Status: Acute (7) Chronic obstructive pulmonary disease (COPD) Onset Date: 03/28/16 Current Visit: No Status: Acute Qualifiers: (8) History of coronary artery disease Onset Date: 03/28/16 Current Visit: No Status: Acute (9) History of implantable cardioverter-defibrillator (ICD) placement Current Visit: No Status: Acute (10) CHF (congestive heart failure) Current Visit: No Status: Chronic Qualifiers: - Plan REC: 1) await gastric biopsies and biopsies of gastric ulcer 2) PPI IV therapy 3) await gastrin level 4) CL to FL diet Physician Review: Patient Assessed, Agree with Above Assessment and Plan
[2022-01-19] MEDS: ALPRAZOLAM 1 MG TABLET PO PRN (13:53)
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
--- NOTE | 2022-01-19 16:21 | PN ---
Date of Progress Note: 01/19/2022 Subjective: The patient was admitted with abdominal pain, acidosis. Physical Examination: Vital Signs: Blood pressure 112/66. Chest: Clear to auscultation. Heart: S1, S2. Regular. Abdomen: Soft. Tenderness on the left side. Extremities: No edema. Neurologic: Alert. No focality. Laboratory Data: WBC 10.6, H and H 9.8/31.3. Sodium 138, potassium 4.3, bicarb 23, BUN 18, creatini ne 1, GFR of 75, calcium 8.7, phosphorus 2.3, albumin 2.3. Current Medications: The patient on include; 1.Metronidazole. 2.Methocarbamol. 3.Nitroglycerin. 4.Ensure. 5.Metoclopramide. Assessment And Plan: 1.Acidosis, non-anion gap acidosis secondary to hemicolectomy, currently recovered. We will continu e sodium bicarb. 2.Hypertension, controlled, optimal. Continue current treatment. 3.Hyponatremia secondary to depletional, recovered, resolved. 4.Colitis as by primary. 5.Anemia of iron deficiency. We will follow up with primary. Waiting for serum protein electrophor esis. KIM/ELI Voice ID: [id number] Report ID: [id number]
[2022-01-20] MEDS: MORPHINE 2 MG/ML SYR IV PRN ×3 (04:08→12:16)
[2022-01-20] MEDS: PROMETHAZINE INJ 25 MG/ML AMP IV PRN ×3 (04:08→12:16)
--- NOTE | 2022-01-20 05:06 | P.PN ---
Subjective Date of Service: 01/20/22 Primary Care Provider: Altered mental status, weakness, chest pain Chief Complaint: DWIGHT pain, altered mental status, weakness, chest pain Subjective: No new changes Physical Examination - Vital Signs Temperature: 98 F Blood Pressure: 110/64 Pulse: 77 Respirations: 18 Pulse Ox (%): 96 - Physical Exam General: Other (appears as his stated age) HEENT: Atraumatic, Normocephalic Neck: Supple, JVD not distended Respiratory: Other (symmetric chest expansion) Cardiovascular: No rubs, No murmurs Gastrointestinal: Soft and benign, Non-distended Musculoskeletal: No clubbing Integumentary: No warmth Neurological: Normal tone Urinary: Other (no bladder distention) External genitalia: Deferred Rectal: Deferred Assessment And Plan - Plan 1. Acidosis, non-anion gap acidosis secondary to hemicolectomy, resolved. Po bicarb therapy d/c'ed. Monitor. 2. Hypertension, BP controlled. Continue current med regimen. 3. HypoPO4. Received Neutra-Phos today. 4. Colitis. Per primary team. 5. Anemia. Further eval/mngt as outpt. 6. Dispo. Will sign off. Physician Review: Patient Assessed, Agree with Above Assessment and Plan
[2022-01-20] MEDS: PANTOPRAZOLE INJ 80 MG in NA CHLORIDE 0.9% 250 ML IV SCH (05:32)
[2022-01-20 07:20] LABS: Albumin 2.3 g/dL (3.4-5.0); Phosphorus 2.3 mg/dL (2.5-4.9); Potassium 4.2 mmol/L (3.5-5.1)
[2022-01-20] MEDS: METOCLOPRAMIDE 5 MG TAB PO SCH ×2 (07:52→12:16)
[2022-01-20 08:16] LABS: Absolute Lymphocytes (CBC) 2.5 K/uL (0.7-4.9); Hematocrit 34.1 % (39.6-49.0); MPV 7.3 fL (7.6-11.3); RBC Red Blood Cell Count 4.63 M/uL (4.33-5.43)
[2022-01-20 08:57] VITALS: O2SAT 96
[2022-01-20] MEDS: FLUTICASONE IH SCH (09:00)
[2022-01-20] MEDS: DISK DISK IH SCH (09:00)
[2022-01-20] MEDS: SPIRIVA 18 MCG IH SCH (09:00)
[2022-01-20] MEDS: SALMETEROL IH SCH (09:00)
[2022-01-20] MEDS: LIDOCAINE VISCOUS 2% SOLN 15 ML UDC PO SCH (11:06)
[2022-01-20] MEDS: ALPRAZOLAM 1 MG TABLET PO PRN (11:06)
[2022-01-20] MEDS: DIPHENHYDRAMINE 12.5MG/5ML LIQ PO SCH (11:06)
[2022-01-20] MEDS: ENOXAPARIN 40 MG/0.4 ML SQ SCH (11:06)
[2022-01-20] MEDS: metroNIDAZOLE 500 MG TABLET PO SCH (11:07)
[2022-01-20] MEDS: MAGNES/ALUMIN/SIMET 30ML UCUP PO SCH (11:07)
[2022-01-20] MEDS: methocarbamoL 500 MG TAB PO SCH (11:07)
[2022-01-20] MEDS: ENSURE ENLIVE 237 ML CAN PO SCH (11:08)
[2022-01-20] MEDS ORDERED: POTASS/SODIUM PHOSPHATE 1 PKT POWD.PACK PO ONE (12:30)
--- NOTE | 2022-01-20 12:54 | RAD REPORT ---
EXAM DESCRIPTION: ADDENDUM #1 Addendum: There has been interval placement of a right upper extremity PICC line tip of the catheter cavoatrial junction and good position. Electronically signed by: Eldon Gracia MD 01/20/2022 12:35 AM CDT End of Addendum EXAM DESCRIPTION: Chest Single View 01/19/2022 11:43 PM CDT CLINICAL HISTORY: 61 years, Male, PICC line placement COMPARISON: 01/16/2022 FINDINGS: Single view of the chest was obtained portable. Prior films were compared. There is a dual -lead pacemaker defibrillator via left subclavian similar to prior study. The cardiomediastinal lizabeth houette demonstrate to be unremarkable. The heart is not enlarged. The thoracic aorta is mildly tortu ous with intimal calcification. The pulmonary vasculature is normal distribution. Lung volume is decr eased. Minimal atelectatic changes lung bases. No symptom pleural effusions. No focal areas of consol idation. The rest of the soft tissue and bony structures demonstrate to be unremarkable. IMPRESSION: Pacemaker defibrillator in good position. Minimal atelectatic changes lung bases. Electronically signed by: Eldon Gracia MD 01/19/2022 11:44 PM CDT Due to temporary technical issues with the PACS/Fluency reporting system, reports are being signed by the in house radiologist without review as a courtesy to ensure prompt reporting. The interpreting r adiologist is fully responsible for the content of the report.
--- NOTE | 2022-01-20 13:03 | P.PN ---
Subjective Date of Service: 01/20/22 Primary Care Provider: Altered mental status, weakness, chest pain Chief Complaint: DWIGHT pain, altered mental status, weakness, chest pain Subjective: No new changes (Refusing clear liquid diet once diet to be advanced to soft or regular diet today States he wants surgery of his gastric ulcer Very angry when I explained to him that treatment of gastric ulcer is not surgery or other medications. He repeatedly states he was informed by Dr. Santo that he needs sx) Physical Examination - Vital Signs Temperature: 97.8 F Blood Pressure: 103/63 Pulse: 82 Respirations: 18 Pulse Ox (%): 97 Assessment And Plan - Current Problems (Diagnosis) (1) AMS (altered mental status) Current Visit: Yes Status: Acute (2) Sigmoid diverticulitis Current Visit: Yes Status: Acute (3) Chest pain Onset Date: 03/28/16 Current Visit: No Status: Acute Qualifiers: (4) Chronic obstructive pulmonary disease (COPD) Onset Date: 03/28/16 Current Visit: No Status: Acute Qualifiers: (5) History of implantable cardioverter-defibrillator (ICD) placement Current Visit: No Status: Acute (6) CHF (congestive heart failure) Current Visit: No Status: Chronic Qualifiers: Physician Review: Patient Assessed, Agree with Above Assessment and Plan Physician Review Additional Text: IMPRESSION: CT chest imaging shows no acute or suspicious finding. Suspected gastric antritis. This needs clinical correlation. Suspected mild diverticulitis in the proximal sigmoid colon also needing correlation with clinical presentation. No free air, obstruction or other surgically emergent finding Physical examination Generalmiddle-aged male, , anxious, on room air HEENTPERRLA, EOMI Respiratorygood air entry, no crepitation CardiovascularS1-S2 rate and rhythm regular GImild/moderate epigastric tenderness, no rebound, bowel sounds positive Extremitiesno pedal edema no calf tenderness Neuroalert oriented x3 Impression Altered mental statuslikely due to weakness from recent volume loss from diarrhearesolved Gastric ulcer with gastritis Medication noncompliance Sigmoid diverticulitislikely cause of diarrhea Metabolic acidosis History of AICD/CHF/COPDstable History of CAD status post PCI Atypical chest painlikely due to gastritis, rule out acute coronary syndrome although less likely Plan Large gastric ulcerdue to medication noncompliance, status postbiopsy of ulcer -discussed with pathologistDr. Hobson, area of biopsy shows no evidence of cancer chronic ulcer Given thickened gastric wall as well as retained food in stomach, possible dysmotility, add Reglan Continue PPI twice daily Normal lipase level as well as CT negative for pancreatitis Atypical chest painresolved Status post negative cardiac enzymes Likely due to gastritis Sigmoid diverticulitiswith associated recent diarrhearesolved continue Flagyl WBC trending down Borderline hypotensionresolved Metabolic acidosisresolving, likely due to GI loss History of CHFstable, continue ICD monitoring telemetry DVT prophylaxissubcutaneous Lovenox Advance directivefull code 01/20/22 13:02
--- NOTE | 2022-01-20 14:08 | P.DS ---
Admission Date: 01/18/22 Discharge Date: 01/20/22 Primary Care Provider: Altered mental status, weakness, chest pain Disposition: ROUTINE DISCHARGE Discharge Condition: FAIR Reason for Admission: DWIGHT pain, altered mental status, weakness, chest pain - Problems (1) AMS (altered mental status) Current Visit: Yes Status: Acute (2) Sigmoid diverticulitis Current Visit: Yes Status: Acute (3) Chest pain Onset Date: 03/28/16 Current Visit: No Status: Acute Qualifiers: (4) Chronic obstructive pulmonary disease (COPD) Onset Date: 03/28/16 Current Visit: No Status: Acute Qualifiers: (5) History of implantable cardioverter-defibrillator (ICD) placement Current Visit: No Status: Acute (6) CHF (congestive heart failure) Current Visit: No Status: Chronic Qualifiers: Brief History of Present Illness: 61-year-old male with past medical history of hypertension, coronary disease status post multiple PCI's in the past, history of presumed CHF unknown EF, AICD placement, COPD presented because of increasing weakness. EMS was called by because patient has been very weak and unable to get up from the chair since the last 1 day. On arrival of EMS patient was very wea BUT was responsive. He was brought to the emergency room. Patient is unable to recall why he is in the hospital. He states he has no memory since last evening. He admits to having diarrhea abdominal cramps since the last 3 days after eating a restaurant. He admits to nausea but denies any vomiting. He is complaining of chest pain now he states chest pain is more in the epigastric area and appears to be radiating to the left shoulder blade. He denies any prior history of gallstones. On admission head CT shows no acute intracranial pathology. Chest CT shows no acute abnormality. EKG shows normal sinus rhythm with no ST segment changes, old Q waves in inferior lateral leads. CT of the abdomen shows evidenc e of mild sigmoid diverticulitis as well as antral gastritis. Patient has been admitted for altered mental status, sigmoid diverticulitis as well as atypical chest pain. Hospital Course: Hospital course Patient admitted for altered mental status, continue to complain of epigastric pain. He was ruled out for atypical chest pain with serial set of cardiac enzymes. Patient reportedly had an EGD at [facility] with findings of persistent large gastric ulcer. He has not been compliant with his Carafate and Protonix. He continues to complain of persistent pain symptoms. GI evaluation was obtained and he had a repeat EGD done with findings of large clean-based ulcer with raised edges. Ulcer was extended to the pylorus and likely causing patient dysmotility with delayed peristalsis and retained food noted on EGD. Biopsy of the ulcer was obtained and noted on pathology to be benign with no findings suspicious of carcinoma. Patient was started on continue PPI as well as Reglan for motility issues. Patient reportedly wanted surgical intervention of his gastric ulcer. He declined option of clear liquid diet and was later able to tolerate soft diet. He became more belligerent when only conservative management with medications was offered to him. Patient is being discharged. Vital Signs/Physical Exam: Temp Pulse Resp BP Pulse Ox 97.8 F 82 18 103/63 97 01/20/22 13:03 01/20/22 13:03 01/20/22 13:03 01/20/22 13:03 01/20/22 13:03 General: Alert, In no apparent distress, Oriented x3 HEENT: Atraumatic, Normocephalic Neck: Supple, 2+ carotid pulse no bruit Respiratory: Clear to auscultation bilaterally, Normal air movement Cardiovascular: No edema, Normal pulses, Regular rate/rhythm, Normal S1 S2 Gastrointestinal: Normal bowel sounds, Soft and benign, Non-distended Musculoskeletal: No clubbing, No swelling Laboratory Data at Discharge: WBC 13.4 K/uL (4.3-10.9) H D 01/20/22 06:41 Hgb 10.7 g/dL (13.6-17.9) L 01/20/22 06:41 Hct 34.1 % (39.6-49.0) L 01/20/22 06:41 Plt Count 411 K/uL (152-406) H 01/20/22 06:41 PT 13.6 SECONDS (9.5-12.5) H 01/16/22 04:10 INR 1.23 01/16/22 04:10 APTT 31.4 SECONDS (24.3-36.9) 01/16/22 04:10 Sodium 141 mmol/L (136-145) 01/20/22 06:41 Potassium 4.2 mmol/L (3.5-5.1) 01/20/22 06:41 BUN 19 mg/dL (7-18) H 01/20/22 06:41 Creatinine 0.95 mg/dL (0.55-1.3) 01/20/22 06:41 Glucose 116 mg/dL (74-106) H 01/20/22 06:41 Phosphorus 2.3 mg/dL (2.5-4.9) L 01/20/22 06:41 Magnesium Cancelled 01/18/22 12:45 Total Bilirubin 0.3 mg/dL (0.2-1.0) 01/17/22 03:32 AST 6 U/L (15-37) L 01/17/22 03:32 ALT 11 U/L (12-78) L 01/17/22 03:32 Alkaline Phosphatase 54 U/L (45-117) 01/17/22 03:32 Triglycerides 101 mg/dL (<150) 01/17/22 03:32 Cholesterol 76 mg/dL (<200) 01/17/22 03:32 HDL Cholesterol 19 mg/dL (40-60) L 01/17/22 03:32 Cholesterol/HDL Ratio 4.00 01/17/22 03:32 Lipase 76 U/L (73-393) 01/17/22 12:20 Home Medications: Fluticasone [Flovent Hfa 110*] 1 puff IH BID PRN 03/27/16 Fluticasone/Salmeterol [Advair 500/50 Diskus*] 1 puff IH BID PRN 03/27/16 Mometasone/Formoterol [Dulera 100 Mcg-5 Mcg Inhaler] 2 puff IH BID* PRN 03/27/16 Nitroglycerin [Nitrostat*] 0.4 mg SL PRN PRN 03/27/16 Tiotropium [place] [Spiriva] 2 spray IH DAILY PRN 03/27/16 methocarbamoL [Robaxin*] 500 mg PO TID 03/27/16 Alprazolam [Xanax] 2 mg PO TID PRN #30 tablet 05/28/16 Enalapril [Vasotec*] 10 mg PO DAILY 06/17/18 Dexlansoprazole [Dexilant] 60 mg PO TID #90 01/20/22 Sucralfate [Carafate] 1 gm PO TID #30 tablet 01/20/22 metroNIDAZOLE [Flagyl*] 500 mg PO TID #12 tablet 01/20/22 New Medications: Sucralfate [Carafate] 1 gm PO TID #30 tablet Dexlansoprazole [Dexilant] 60 mg PO TID #90 metroNIDAZOLE [Flagyl*] 500 mg PO TID #12 tablet Diet: soft Activity: Ad zachariah Followup: Unknown,U [Primary Care Provider] - Ray Gupta MD [ASSOCIATE-ACTIVE - CAN ADMIT] - Time spent managing pt's care (in minutes): 35
[2022-01-20 21:03] VITALS: BP 110/64; TEMP 98
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
[2022-01-24 11:20] LABS: Albumin, (SPE) 2.8 g/dL (3.8-4.8); Alpha-1-Globulins 0.5 g/dL (0.2-0.3); Alpha-2-Globulins 0.9 g/dL (0.5-0.9); Gamma Globulins 0.8 g/dL (0.8-1.7); INTERPRETATION REPORT
== END 2022-01-20 13:44 | disposition left against medical advice (07) | DRG 384 ==
LOC: ER 03:41 → ERHOLD 12:38 → 2ND 15:39 → OBSVTOIN 01-18 07:57
PROVIDERS: ADMIT Internal Medicine; ATTEND Internal Medicine
PROC: 0DB78ZX Excision of Stomach, Pylorus, Via Natural or Artificial Opening Endoscopic, Diagnostic (ICD-10-PCS; 2022-01-18)
PROC: 02HV33Z Insertion of Infusion Device into Superior Vena Cava, Percutaneous Approach (ICD-10-PCS; principal; 2022-01-19)
DX: K25.9 Gastric ulcer, unspecified as acute or chronic, without hemorrhage or perforation (principal); K57.32 Diverticulitis of large intestine without perforation or abscess without bleeding; E87.2 Acidosis; E87.1 Hypo-osmolality and hyponatremia; J44.9 Chronic obstructive pulmonary disease, unspecified; I95.9 Hypotension, unspecified; F41.9 Anxiety disorder, unspecified; E78.5 Hyperlipidemia, unspecified; K29.70 Gastritis, unspecified, without bleeding; I25.10 Atherosclerotic heart disease of native coronary artery without angina pectoris; I11.0 Hypertensive heart disease with heart failure; I50.9 Heart failure, unspecified; D50.9 Iron deficiency anemia, unspecified; R19.2 Visible peristalsis; I73.9 Peripheral vascular disease, unspecified; I25.2 Old myocardial infarction; Z95.810 Presence of automatic (implantable) cardiac defibrillator; Z90.49 Acquired absence of other specified parts of digestive tract; Z87.891 Personal history of nicotine dependence; Z95.5 Presence of coronary angioplasty implant and graft; Z88.6 Allergy status to analgesic agent; Z88.0 Allergy status to penicillin; Z88.2 Allergy status to sulfonamides; Z91.14 Patient's other noncompliance with medication regimen
CPT/HCPCS: 36415; 36569; 70450; 71045; 71260; 72125; 74177; 80053; 80061; 80069; 81003; 81015; 82435; 82570; 82607; 82728; 82746; 82941; 83540; 83605; 83690; 83735; 84132; 84146; 84156; 84165; 84300; 84443; 84484; 85025; 85044; 85610; 85730; 87040; 88305; 88312; 93005; 93306; 96361; 96374; 96375; 99285; C9113; G0378; J1170; J1650; J2270; J2405; J2550; J2704; J3010; J7030; J7050; J7120; Q0163; Q9967; U0003

== ENCOUNTER 2022-05-11 16:45 | Emergency (ER) | payer OTHER ==
--- OUTSIDE RECORDS SUMMARY | 2022-05-11 16:49 | XMS REPORT | Continuity of Care Document ---
:1960 Author Organization [facility] t Address [address] [place] [address] Care Team Providers Name Role Phone Bob Weathers Primary Care Physician NANDO SILVESTRE Attending Clinician Unavailable Nando Silvestre MD Attending Clinician Doctor Unassigned, [place] Attending Clinician Unavailable MARIANELA MARTINS Attending Clinician Unavailable VARUN VANN Attending Clinician Unavailable DANGELO FREEMAN Attending Clinician Unavailable MARCELINA DE LOS SANTOS Admitting Clinician Unavailable Payers Payer Name Policy Type Policy Number Effective Date Expiration Date S lizzy [place]ICAID OF [place] [id number] 2014 00:00:00 MEDICARE A B [id number] 2014 00:00:00 [facility]ID [facility] [id number] 2014 00:00:00 [place] [id number] 2014 00:00:00 Problems Condition Condition Condition Status Onset Resolution Last Treating Co mments Source Name Details Category Date Date Treatment Clinician Date Coronary Coronary Disease Active Unive rs artery artery 06-02 ity of disease disease 00:00: [place] involving involving 00 Medi [place] coronary coronary artery of artery of [place] heart without without angina angina pectoris pectoris Allergies, Adverse Reactions, Alerts Allergy Allergy Status Severity Reaction(s) Onset Inactive Treating Comm ents Source Name Type Date Date Clinician IBUPROFE Allergy Active High [facility]axis [facility] Aspirin Propensi Active [...] 00:00: [place] reaction 00 Medical s Branch Acetamin Propensi Active Anaphylaxis 2018-09 [...] reaction 00 Medica l ics) s Branch ASPIRIN DRUG Active Anaphylaxis 2018-09 [...] vers OPHEN INGREDI 0-16 ity of 00:00: [place] 00 Medical Branch Penicill Propensi Active Shortness of 2018-09 Univers ins ty to Breath 0-16 ity of adverse 00:00: [place] reaction 00 Medical s Branch Sulfa Propensi Active Swelling 2018-09 Univer s (Sulfona ty to 0-16 ity of mide adverse 00:00: [place] Antibiot reaction 00 Medica l ics) s Branch Penicill DA Active U 2017-09 [facility] ins [facility]: [address] [facility] Sulfa DA Active U 2017-09 [facility] (Sulfona [place] 00:00: [place] Antibiot 00 Medical ics) Center codeine DA Active U 2017-09 [facility] 00:00: [place] [address] [facility] aspirin DA Active U 2017-09 [facility] 00[facility]: [address] [facility] acetamin DA Active U 2017-09 [facility] ophen 00:00: [address] levoflox DA Active U 2017-09 [facility] acin 00:00: [address] ACETAMIN Allergy Active High Anaphylaxis SL [facility] OPHEN 04-29 00:00: 00 CODEINE Allergy Active [facility] 04-25 00:00: 00 LEVOFLOX Allergy Active [facility] ACIN 04-25 00:00: 00 PENICILL Allergy Active [facility] INS 04-25 00:00: 00 SULFA Allergy Active [facility] (SULFONA 04-25 MIDE 00:00: ANTIBIOT 00 ICS) SALICYLA Allergy Active [facility] JUAN 04-25 00:00: 00 Social History Social Habit Start Date Stop Date Quantity Comments Source History of Snuff User University of tobacco use [facility] Exposure to 2022-01-28 2022-02-07 Not sure [facility] SARS-CoV-2 00:00:00 13:21:00 [facility] (event) [place] Alcohol intake 2021-05-19 2021-05-19 Ex-drinker [facility] 00:00:00 00:00:00 (finding) [facility] Tobacco use and 2019-07-09 2019-07-09 Current user Univers ity of exposure 00:00:00 00:00:00 [facility] Sex Assigned At [birth year] Universit y of 00:00:00 00:00:00 [facility] Smoking Status Start Date Stop Date Source Former smoker 2019-07-09 00:00:00 2019-07-09 00:00:00 [facility] Medications Ordered Filled Start Stop Current Ordering Indication Dosage Frequency Signature Comments Components Source Medication Medication Date Date Medication? Clinician (SIG) Name Name isosorbide 2021-0 Yes 30mg Take 30 mg U nivers mononitrate 5-17 by mouth it[place] of 30 mg 24 hr 13:42[place] methocarbam 0 Yes 500mg Take 500 U nivers ol 5-17 mg by ity of (ROBAXIN) 13:42: mouth 3 [place] 500 mg 33 (three) Medical tablet times Branch daily. Dexlansopra 2021-0 Yes Take by Uni vers zole 5-17 mouth 3 ity of (DEXILANT) 13:42: (three) [place] 60 mg 33 times Medical capsule daily. Branch fluticasone 0 Yes Use in [facility] ers propionate 5-17 each ity of 50 13:42: nostril [place] mcg/actuati 33 daily. Medica l on nasal Branch spray proMETHazin 2021-0 Yes 25mg Take 25 mg Univers e 25 mg 5-17 by mouth ity of tablet 13:42: every 4 [place] 33 (four) Medical hours as Branch needed. isosorbide 2021-0 Yes 30mg Take 30 mg U nivers mononitrate 5-17 by mouth ity of 30 mg 24 hr 13:42: [place]. [place] tablet 33 [place] methocarbam 0 Yes 500mg Take 500 U nivers ol 5-17 mg by ity of (ROBAXIN) 13:42: mouth 3 [place] 500 mg 33 (three) Medical tablet times Branch daily. Dexlansopra 2021-0 Yes Take by Uni vers zole 5-17 mouth 3 ity of (DEXILANT) 13:42: (three) [place] 60 mg 33 times Medical capsule daily. Branch fluticasone 2021-0 Yes Use in [facility] ers propionate 5-17 each ity of 50 13:42: nostril [place] mcg/actuati 33 daily. Medica l on nasal Branch spray proMETHazin 2021-0 Yes 25mg Take 25 mg Univers e 25 mg 5-17 by mouth ity of tablet 13:42: every 4 [place] 33 (four) Medical hours as Branch needed. isosorbide 2021-0 Yes 30mg Take 30 mg U nivers mononitrate 5-17 by mouth ity of 30 mg 24 hr 13:42: [place]. [place] tablet 33 [place] methocarbam 2021-0 Yes 500mg Take 500 U nivers ol 5-17 mg by ity of (ROBAXIN) 13:42: mouth 3 [place] 500 mg 33 (three) Medical tablet times Branch daily. Dexlansopra 2021-0 Yes Take by Uni vers zole 5-17 mouth 3 ity of (DEXILANT) 13:42: (three) [place] 60 mg 33 times Medical capsule daily. Branch fluticasone 0 Yes Use in [facility] ers propionate 5-17 each ity of 50 13:42: nostril [place] mcg/actuati 33 daily. Medica l on nasal Branch spray proMETHazin 0 Yes 25mg Take 25 mg Univers e 25 mg 5-17 by mouth ity of tablet 13:42: every 4 [place] [address] (four) Medical hours as Branch needed. isosorbide 2021-0 Yes 30mg Take 30 mg U nivers mononitrate 5-17 by mouth ity of 30 mg 24 hr 13:42: [place]. [place] tablet 33 [place] methocarbam 0 Yes 500mg Take 500 U nivers ol 5-17 mg by ity of (ROBAXIN) 13:42: mouth 3 [place] 500 mg 33 (three) Medical tablet times Branch daily. Dexlansopra 2021-0 Yes Take by Uni vers zole 5-17 mouth 3 ity of (DEXILANT) 13:42: (three) [place] 60 mg 33 times Medical capsule daily. Branch fluticasone 2021-0 Yes Use in [facility] ers propionate 5-17 each ity of 50 13:42: nostril [place] mcg/actuati 33 daily. Medica l on nasal Branch spray proMETHazin 2021-0 Yes 25mg Take 25 mg Univers e 25 mg 5-17 by mouth ity of tablet 13:42: every 4 [place] 33 (four) Medical hours as Branch needed. chlordiazeP [...] Branch daily. Dexlansopra 2019- Yes Take by Uni vers zole 0-26 mouth 3 ity of (DEXILANT) 15:56: (three) [place] 60 mg 14 times Medical capsule daily. Branch hydrocodone 2019-09 Yes Take by Uni vers /acetaminop 0-26 mouth 4 ity o f hen 15:56: (four) [place] (VICODIN ES 14 times Medical ORAL) daily. Branch fluticasone 2019-09 Yes Use in Univ ers propionate 0-26 each ity of 50 15:56: [...] (three) [place] 14 times Medical daily. Branch hydrocodone 2019- Yes Take by Uni vers /acetaminop 0-26 mouth 4 ity o f hen 10:56: (four) [place] (VICODIN ES 14 times Medical ORAL) daily. Branch Fluticasone 2019- Yes 1{puff} Inhale 1 Univers -Salmeterol 0-26 Puff 3 ity of (ADVAIR 10:56: (three) [place] DISKUS) 14 times Medical 500-50 daily. Branch mcg/dose inhalation disk chlordiazeP 2019- Yes 10mg Take 10 mg Univers OXIDE 10 mg 0-26 by mouth 3 it y of capsule 10:56: (three) [place] 14 times Medical daily. Branch hydrocodone 2020- Yes Take by Uni vers /acetaminop 0-26 mouth 4 ity o f hen 10:56: (four) [place] (VICODIN ES 14 times Medical ORAL) daily. Branch Fluticasone 2020- Yes 1{puff} Inhale 1 Univers -Salmeterol 0-26 Puff 3 ity of (ADVAIR 10:56: (three) [place] DISKUS) 14 times Medical 500-50 daily. Branch mcg/dose inhalation disk chlordiazeP 2020- Yes 10mg Take 10 mg Univers OXIDE 10 mg 0-26 by mouth 3 it y of capsule 10:56: (three) [place] 14 times Medical daily. Branch hydrocodone 2020- Yes Take by Uni vers /acetaminop 0-26 mouth 4 ity o f hen 10:56: (four) [place] (VICODIN ES 14 times Medical ORAL) daily. Branch Fluticasone 2020- Yes 1{puff} Inhale 1 Univers -Salmeterol 0-26 Puff 3 ity of (ADVAIR 10:56: (three) [place] DISKUS) 14 times Medical 500-50 daily. Branch mcg/dose inhalation disk chlordiazeP 2019- Yes 10mg Take 10 mg Univers OXIDE 10 mg 0-26 by mouth 3 it y of capsule 10:56: (three) [place] 14 times Medical daily. Branch hydrocodone 2020- Yes Take by Uni vers /acetaminop 0-26 mouth 4 ity o f hen 10:56: (four) [place] (VICODIN ES 14 times Medical ORAL) daily. Branch Fluticasone 2020- Yes 1{puff} Inhale 1 Univers -Salmeterol 0-26 Puff 3 ity of (ADVAIR 10:56: (three) [place] DISKUS) 14 times Medical 500-50 daily. Branch mcg/dose inhalation disk enalapril 2020- Yes [id number] 10mg Take 1 U nivers 10 mg 0-26 tablet by ity of tablet 00:00: mouth 2 [place] 00 (two) Medical times Branch daily. enalapril 2020- Yes [id number] 10mg Take 1 U nivers 10 mg 0-26 tablet by ity of tablet 00:00: mouth 2 [place] 00 (two) Medical times Branch daily. enalapril 2020-1 Yes [id number] 10mg Take 1 U nivers 10 mg 0-26 tablet by ity of tablet 00:00: mouth (two) Medical times Branch daily. enalapril 2020-1 Yes [id number] 10mg Take 1 U nivers 10 mg 0-26 tablet by ity of tablet 00:00: mouth (two) Medical times Branch daily. enalapril 2020-1 Yes HFrEF 10mg Take 1 Unive rs 10 mg 0-26 (heart tablet by ity of tablet 00:00: failure mouth 2 with (two) Medical reduced times Branch ejection daily. fraction) carvediloL 2020-0 Yes 3.125mg Take 1 Un [...] (two) Medical times Branch daily with meals. Vital Signs Vital Name Observation Time Observation Value Comments Source HEIGHT 2021-10-11 13:11:00 190.5 cm WEIGHT 2021-10-11 13:11:00 83.462 kg HEIGHT 2021-10-02 13:00:00 190.5 cm WEIGHT 2021-10-02 13:00:00 91.627 kg HEIGHT 2021-10-02 13:00:00 190.5 cm WEIGHT 2021-10-02 13:00:00 91.627 kg Procedures Procedure Date / Time Performing Clinician Source Performed EXTERNAL PROVIDER RECORDS 2022-02-21 05:01:00 Doctor Lexi [facility] [place] Medical Branch AUTHORIZATION FOR RELEASE 2021-11-02 06:01:00 Doctor Lexi [facility] [place] Medical Branch MEDICATION CORRESPONDENCE 2021-01-13 05:01:00 Doctor Lexi [facility] [place] Medical [facility] Plan of Care Planned Activity Planned Date Details Comments Source Future Scheduled 2021-07-19 Depression screening [facility] Test 00:00:00 (procedure) [code = Medical Branch 937226155] Future Scheduled 2021-05-25 INFLUENZA VACCINE [facility] Test 00:00:00 (Season Ended) [code = Medic al Branch INFLUENZA VACCINE (Season Ended)] Future Scheduled 2016 Screening for [facility] Test 00:00:00 malignant neoplasm of Medica l Branch lung (procedure) [code = 914610950] Future Scheduled 2011 Screening for occult Uni [facility] Test 00:00:00 blood in feces Medical Bran h (procedure) [code = 044369447] Future Scheduled 2011 Stool DNA-based [facility] Test 00:00:00 colorectal cancer Medical Br anch screening (procedure) [code = 016353284319240] Future Scheduled 2011 Flexible fiberoptic [facility] Test 00:00:00 sigmoidoscopy Medical Branch (procedure) [code = 97216812] Future Scheduled 2011 Screening for [facility] Test 00:00:00 malignant neoplasm of Medica l Branch colon (procedure) [code = 786429977] Future Scheduled 2011 Screening for [facility] Test 00:00:00 malignant neoplasm of Medica l Branch colon (procedure) [code = 988728632] Future Scheduled 2011 Zoster Recombinant Unive [facility] Test 00:00:00 Vaccine (SHINGRIX) (1 Medica l Branch of 2) [code = Zoster Recombinant Vaccine (SHINGRIX) (1 of 2)] Future Scheduled 1980 DTaP,Tdap,and Td Univers [facility] Test 00:00:00 Vaccines (1 - Tdap) Medical Branch [code = DTaP,Tdap,and Td Vaccines (1 - Tdap)] Future Scheduled 1967 PNEUMOCOCCAL 0-64 Univer sity [facility] Test 00:00:00 YEARS COMBINED SERIES Medica l Branch (1 of 1 - PPSV23) [code = PNEUMOCOCCAL 0-64 YEARS COMBINED SERIES (1 of 1 - PPSV23)] Future Scheduled 1961 Hepatitis C screening Un [facility] Test 00:00:00 (procedure) [code = Medical Branch 454080495] Encounters Start End Encounter Admission Attending Care Care Encounter Source Date/Time Date/Time Type Type Clinicians Facility Department ID 2022-02-28 2022-02-28 [facility] [id number] Univers 13:00:00 13:00:00 NANDO [id number] sergio [facility] 2022-02-23 2022-02-23 Telephone [facility] [id number] Univers 00:00:00 00:00:00 Nando APRDO 350.1.13.10 i ty of [place] 4[place]2.[place] [id number] [address] 2022-02-21 2022-02-21 Orders Doctor KIERA [id number] Univers 00:00:00 00:00:00 Only Unassigned, CALE 350.1.13.10 ity of [place] [facility] 4.2.7.2.686 [place] as [id number] [address] 2022-02-15 2022-02-15 [facility] [id number] Univers 00:00:00 00:00:00 NANDO [place] [facility] 2022-02-09 2022-02-09 Telephone [facility] [id number] Univers 00:00:00 00:00:00 Nando PARDO 350.1.13.10 i ty of [place] 4[place]2.[place] [id number] [address] 2022-02-07 2022-02-07 [facility] [id number] Univers 13:45:00 15:08:28 NANDO [facility] 2021-11-02 2021-11-02 Orders Doctor KIERA [id number] [facility] 00:00:00 00:00:00 Only Unassigned, C[place] 350.1.13.10 ity of [place] [facility] 4.2.7.2.686 [place] as [id number] [address] 2021-10-11 2021-10-[address] [facility] [id number] SLE 13:18:39 13:18:39 [facility] 2021-10-11 2021-10-[address] [facility] [id number] SLE 00:00:00 00:00:00 [facility] 2021-10-02 2021-10-04 Inpatient ER [facility] Gastro [id number] SLE 12:35:00 14:04:00 [place] 2021-10-03 2021-10-03 Outpatient [facility] [id number] [facility] 00:00:00 23:59:00 [facility] Results Test Description Test Time Test Comments Results Result [facility] e Comments TISSUE EXAM 2021-09-24 Surgical Pathology Report 8 Case: [id number] 08:38:26 Authorizing Provider: Keiry Bello MD Collected: 10/04/2021 08:30 AM Ordering Location: [address] Received: 10/04/2021 12:15 PM Service Pathologist: Tres Burch MD Specimen: Gastric, GASTRIC ULCERS BIOPSY STOMACH, ULCERS, BIOPSY: - CHRONIC ACTIVE GASTRITIS WITH EXTENSIVE ULCERATION AND GRANULATION TISSUE - NO DYSPLASIA OR CARCINOMA PRESENT - NEGATIVE FOR HELICOBACTER, HSV or CMV (IMMUNOSTAINS) Signing Pathologist Direct Phone Line: [phone] signed by Tres Burch MD on 10/11/2021 at 8:38 [id number] [phone] x 4Iron deficiency anemiaGastricReceived in formalin labeled [...] evaluated Immunohistochemistry technical testing was performed at [facility], Pathology Laboratory where it was developed and [...] qualified to perform high complexity clinical laboratory testing.[facility], Department of Pathology, [address] [place], [place] [id number], [facility], [facility] of [facility], [address] [place] [address], [facility], Department of Pathology, [address] [place] [address], MAGNESIUM 2021-10-04 04:30:23 Test Item Value Reference Range Interpretation Comme nts MAGNESIUM (BEAKER) (test code = 627) 1.8 mg/dL 1.6-2.6 Mastic Worker ID - HARSH [id number] 04:30:23 Test Item Value Reference Range Interpretation Comments PHOSPHORUS (BEAKER) (test code = 3.2 mg/dL 2.3-4.7 604) Mastic Worker ID - HARSH MCOMPREHENSIVE METABOLIC [id number] 04:30:22 Test Item Value Reference Range Interpretation [...] 347) EGFR (BEAKER) (test 68 mL/min/1.73 ESTIMA LISA GFR IS code = 1092) sq m NOT ACCURATE CREATININE CLEARANCE IN PREDICTING GLOMERULAR FILTRATION RATE . ESTIMATED GFR I S NOT APPLICABLE FOR DIALYSIS PATIEN TS. Mastic Worker ID - HARSH MCBC W/PLT COUNT & AUTO [id number] 04:06:08 Test Item Value Reference Range Interpretation [...] PERCENT (BEAKER) (test code = 2801) CT, [id number] 18:57:00Unlisted Reason for Exam - Click Yes and Enter Reason Below->YesUnlisted Reason for Exam->abd pain, N/V, OSH CT with gastric thickeningIs this for enterography?->NoWill this procedure require o ral contrast?->No [facility] CENTERName: CECI DIAZ : 1960 Sex: MFINAL REPORT ABDOMINAL AND PELVIS CT DATED 10/03/2021 CLINICAL INFORMATION: Unlisted Reason for Examabd pain, N/V, OSH CT with gastric thickening TECHNIQUE: Axial images of the abdomen and pelvis were obtained from diaphragm to the pubic symphysis with intravenous contrast. This exam was performed according to our departmental dose-optimization program, which includes automated exposure control, adjustment of the mA and/or kV according to patient size and/or use of interactive reconstruction technique. COMMENT: Liver and spleen are normal in size without focal abnormality. Gallbladder is contracted. No gallstone or biliary dilatation is noted. Pancreas and adrenals are unremarkable.Both kidneys are normal in size and functioning. [...] is present. There is cortical thinning in theinferior pole left kidney suggestive of prior infarction or infection. Diverticular disease is seen in the large bowel without diverticulitis. Small bowel is normal in caliber. Appendix is not visualized. There is wall thickening involving the body of the stomach. Differential includes gastritis, gastric lymphoma, Kati-Nance syndrome, Menetrier disease, [...] MDReport Verified Date/Time: 10/03/2021 18:57:32 Reading Location: [facility] C013Y CT Body Reading Room PERIPHERAL BLOOD SMEAR - PATHOLOGIST [id number] 14:14:07 Test Item Value Reference Range Interpretation Comments RBC MORPHOLOGY See comment Hypochromic, (BEAKER) (test normocytic an emia code = 2846) with moderate anisocytosis an d mild poikilocytosis, including rare to occasional elliptocytes an d acanthocytes. R are schistocytes identified. Minimal polychromasia. WBC MORPHOLOGY See comment Normal in num julius. (BEAKER) (test No significan t code = 2847) deviations from normal WBCs subtype proportions. Lymphocytes wit h few reactive an d rare atypical forms. No immat ure WBCs identified . PLT MORPHOLOGY No Clumping (BEAKER) (test code = 2848) PLT MORPHOLOGY No Satellitosis (BEAKER) (test code = 951692) PLT MORPHOLOGY See comment Adequate in n umber (BEAKER) (test with normal code = 599545) granular morphology. Occasional larg e and rare giant forms identifie d. [facility]-PATHOLOGIST- Jaden Mayen MD 6112 (BEAKER) (electronic (test code = signature) 2373) HEMOGLOBIN [id number] 09:56:08 Test Item Value Reference Range Interpretation Comments HEMOGLOBIN A1C 5.8 % See_Comment H [Automated m essage] ELECTROPHORESIS (BEAKER) The system which (test code = 3811) generated this result transmitted ref erence range: <=5.6%. The reference range was not used to int erpret this result as normal/abnormal . "The A1c is measured using a NGSP-certified method. HbA1c value equal to or greater than 6.5% as thediagnosis cutoff for diabetes. An HbA1c value of 5.7- 6.4% indicates increased risk for diabetes (prediabetes)."Mastic Worker ID - ADM SARS-COV2/RT-PCR ([facility])2021-10-03 09:18:48 Test Item Value Reference Range Interpretation Comments SARS-COV2/RT-PCR (test Negative Not Detected, Negative, code = 4279307) See external report for linked test SARS-COV-2 PERFORMING LAB [facility] (test code = 9044306) Negative result for this test determines that SARS-CoV-2 RNA was not present in the specimen above the Limit of Detection (LOD). However, Negative results do not preclude SARS-CoV-2 infection and should not be used as the sole basis for treatment or patient management decisions. Negative results must be combined with clinical observations, patient history, and [...] a nasopharyngeal swab specimen collected from individuals suspected of COVID-19 by their healthcare provider.This test [...] justifying the authorization of the emergency use ofin vitro diagnostic tests for detection and/or diagnosis of COVID-19 is terminated under Section 564(b)(2) of the Act or the EUA is revoked under Section 564(g) of the Act.Fact Sheet for Healthcare Prov iders:https://www.Bridgevine/sites/default/files/product/documents/Fact_Sheet_HC _Srupbrfbr_Ijgh_DRRT-WxI-4.pdfFact Sheet for Healthcare Patients:https://www.CureSquare.BioHorizons/sites/default/files/product/docume nts/Dyes_Cxguu_Jlbxxeii_Sgav_XUXN-BtK-4.pdfPerforming Laboratory:[facility], [place] [id number] 05:18:14 Test Item Value Reference Range Interpretation Comments PHOSPHORUS (BEAKER) (test code = 3.5 mg/dL 2.3-4.7 604) Mastic Worker ID - DBLIPID [id number] 05:18:14 Test Item Value Reference Range Interpretation Comments TRIGLYCERIDES (BEAKER) (test code = 78 mg/dL 540) CHOLESTEROL (BEAKER) (test code = 89 mg/dL 631) HDL CHOLESTEROL (BEAKER) (test code 26 mg/dL = 976) LDL CHOLESTEROL CALCULATED (BEAKER) 47 mg/dL (test code = 633) Triglyceride Reference Range: Low Risk <150 Borderline 150-199 High Risk 200- 499 Very High Risk >=500Cholesterol Reference Range: Low Risk <200 Borderline 200-239 High Risk >240HDL Cholesterol Reference Range: Low Risk >=60 High Risk <40LDL Cholesterol Reference Range: Optimal <100 Near Optimal 100-129 Borderline 130-159 High 160-189 Very High >=190 Mastic Worker ID - DBCOMPREHENSIVE METABOLIC [id number] 05:18:13 Test Item Value Reference Range Interpretation [...] 347) EGFR (BEAKER) (test 58 mL/min/1.73 ESTIMA LISA GFR IS code = 1092) sq m NOT ACCURATE CREATININE CLEARANCE IN PREDICTING GLOMERULAR FILTRATION RATE . ESTIMATED GFR I S NOT APPLICABLE FOR DIALYSIS PATIEN TS. Mastic Worker ID - [id number] 05:18:13 Test Item Value Reference Range Interpretation Comments MAGNESIUM (BEAKER) (test code = 1.9 mg/dL 1.6-2.6 627) Mastic Worker ID - DBCBC W/PLT COUNT & AUTO [id number] 04:51:38 Test Item Value Reference Range Interpretation [...] code = 2801) URINALYSIS WITH MICROSCOPIC IF [id number] 01:04:25 Test Item Value Reference Range Interpretation [...] = 463) SOURCE(BEAKER) (test code = 2795) Mastic Worker ID - [auto]T4, [id number] 18:31:54 Test Item Value Reference Range Interpretation Comments FREE T4 (BEAKER) (test code = 655) 0.77 ng/dL 0.70-1.48 Mastic Worker ID - DBIRON, TIBC, % SAT. (WITHOUT FERRITIN)2021-10-02 18:16:14 Test Item Value Reference Range Interpretation Comments IRON (BEAKER) (test code = 547) 25.0 ug/dL 40.0-160.0 L TOTAL IRON BINDING CAPACITY 443 ug/dL 250-450 (BEAKER) (test code = 769) IRON % SATURATION (2) (BEAKER) 6 % 20-55 L (test code = 2590) Mastic Worker ID - BENI GOperator ID - DBRAD, ABDOMEN/KUB, 1 VIEW [id number] 18:02:00Reason for exam:->[facility] 1960 Sex: MFINAL REPORT EXAM: RAD, ABDOMEN/KUB, 1 VIEW AP History: acute abdominal pain Comparison: None available. Discussion: No data loops of bowel are identified. No significant increased stool burden.Lung bases are clear.There is a probable 6 mm left upper pole renal calculus. Additional punctate 2 mm right renal calculi are identified the lower pole.No acute osseous abnormality. IMPRESSION: Probable bilateral renal calculi.Nonobstructive bowel gas pattern. Signed: Stevan Rayeport Verified Date/Time: 10/02/2021 18:02:37 Reading Location: [address] Transitional Reading Room [id number] 17:37:07 Test Item Value Reference Range Interpretation Comments LIPASE (BEAKER) (test code = 749) 20 U/L 8-78 Mastic Worker ID - BENI GTSH/FREE T4 IF [id number] 17:05:20 Test Item Value Reference Range Interpretation Comments THYROID STIMULATING HORMONE 6.668 uIU/mL 0.350-4.940 H (BEAKER) (test code = 772) Mastic Worker ID - BENI GVITAMIN B12 AND [id number] 16:52:36 Test Item Value Reference Range Interpretation Comments VITAMIN B12 (BEAKER) 515 pg/mL 213-816 (test code = 774) FOLATE (BEAKER) 8.50 ng/mL See_Comment [Automated message] (test code = 362) The system which generated this result transmitted ref erence range: >=7.00. The reference range was not used to interpr et this result as normal/abnormal . Mastic Worker ID - BENI [id number] 16:52:35 Test Item Value Reference Range Interpretation Comments FERRITIN (BEAKER) (test code = 5.19 ng/mL 5.00-275.00 361) Mastic Worker ID - BENI GB-TYPE NATRIURETIC FACTOR (BNP)2021-10-02 16:22:12 Test Item Value Reference Range Interpretation Comments B-TYPE NATRIURETIC PEPTIDE (FLORYAKER) 72 pg/mL 0-100 (test code = 700) Mastic Worker ID - BENI GHIGH SENSITIVITY TROPONIN [id number] 16:21:50 Test Item Value Reference Range Interpretation Comments HIGH SENSITIVITY 8 pg/ml See_Comment [Automated message] TROPONIN I (test code = The system which [id number]) generated this result transmitted ref erence range: <=35. Th e reference range was not used to interpr et this result as normal/abnormal . Mastic Worker ID - BENI Torres CANTEEN OPERATOR STAT High Sensitivity Troponin-I results should be used in conjunction with other diagnostic information such as ECG, clinical observations and information, and patient symptoms to aid in the diagnosis of PA.COMPREHENSIVE METABOLIC [id number] 16:19:32 Test Item Value Reference Range Interpretation [...] 347) EGFR (BEAKER) (test 47 mL/min/1.73 ESTIMA LISA GFR IS code = 1092) sq m NOT ACCURATE CREATININE CLEARANCE IN PREDICTING GLOMERULAR FILTRATION RATE . ESTIMATED GFR I S NOT APPLICABLE FOR DIALYSIS PATIEN TS. Mastic Worker ID - BENI [id number] 16:19:32 Test Item Value Reference Range Interpretation Comments MAGNESIUM (BEAKER) (test code = 2.0 mg/dL 1.6-2.6 627) Mastic Worker ID - BENI [id number] 16:19:32 Test Item Value Reference Range Interpretation Comments PHOSPHORUS (BEAKER) (test code = 3.4 mg/dL 2.3-4.7 604) Mastic Worker ID - BENI GLACTIC ACID, [id number] 16:12:09 Test Item Value Reference Range Interpretation Comments LACTATE BLOOD VENOUS (2) (BEAKER) 0.50 mmol/L 0.50-2.20 (test code = 2872) Mastic Worker ID - BENI GPROTHROMBIN TIME/[id number] 15:53:06 Test Item Value Reference Range Interpretation Comments PROTIME (BEAKER) 14.4 seconds 11.9-14.2 H (test code = 759) INR (BEAKER) (test 1.14 See_Comment [Automat ed message] code = 370) The system [employer] generated this result transmitted ref erence range: <=5.90. The reference range was not used to int erpret this result as normal/abnormal . RECOMMENDED COUMADIN/WARFARIN INR THERAPY RANGESSTANDARD DOSE: 2.0 - 3.0 Includes: PROPHYLAXIS for venous thrombosis, systemic embolization; TREATMENT for venous thrombosis and/or pulmonary embolus.HIGH RISK: Target INR is 2.5-3.5 for patients with mechanical heart valves.RETICULOCYTE [id number] 15:35:19 Test Item Value Reference Range Interpretation Comments RETICULOCYTE COUNT PCT (BEAKER) (test 1.4 % 0.5-1.8 code = 575) Mastic Worker ID - [id number] W/PLT COUNT & AUTO [id number] 15:35:19 Test Item Value Reference Range Interpretation [...] = 2801) RAD, CHEST, 1 VIEW, NON [id number] 15:26:00Reason for exam:->aicd shockShould this be performed at the bedside?->Yes [facility] 1960 Sex: MFINAL REPORT RAD, CHEST, 1 VIEW, NON DEPT TECHNIQUE: Frontal view(s) of the chest. INDICATION: AICD shock COMPARISON: 05/08/2016 FINDINGS/IMPRESSION: Lines/Tubes: A dual-lead pacemaker/AICD Lungs/pleura: The left lateral costophrenic sulcus is excluded from peaks-gx-fzow. A linear opacity in the lateral right lower lobe is probably a scar. The lungs are otherwise clear and well inflated. No visible pleural effusion. No pneumothorax. Heart and Mediastinum: Unremarkable. Soft Tissues and Bones: Unremarkable. Signed: Padmini Hdez Verified Date/Time: 10/02/2021 15:26:50 Reading Location: [facility] B1 C013X Ortho Consult Reading Room BASI METABOLIC [id number] 12:34:00 Test Item Value Reference Range Interpretation [...] RECOLLECTION NEEDED ON 12/19/18 AT 1151 BY Z.[email or web address].[email or web address]: HEMOLYZEDNOTIFIED PATIENT CARE STAFF:[id number] 12:34:00 Test Item Value Reference Range Interpretation Comments MAGNESIUM (test code = MAG) 1.8 MG/DL 1.6-2.3 N RECOLLECTION NEEDED ON 12/19/18 AT 1151 BY [id number]: HEMOLYZEDNOTIFIED PATIENT CARE STAFF:BECCAROTHROMBIN [id number] 12:10:00 Test Item Value Reference Range Interpretation Comments PROTHROMBIN TIME 10.7 SECONDS 9.6-11.6 N PATIENT (test code = PTP) INTERNATIONAL NORMAL 1.0 0.8-1.1 N The INR is to be RATIO (test code = used only for INR) monitoring oral anticoagulantth erap y. INDICATION INR VALUE ---- ---- ---- -------1. Prophylaxis, de ep venous thrombos is, including high risk surgery. 2.0 - 3.0 2. Prophylaxis, deep venous thrombosis, hip surgery, treatm ent for deep venous thrombosis or pulmonary prevention of systemic emboli sm in patients wit h valvular heart disease, atrial fibrillation, tissue heart va lve, or acute myocar dial infarction. 2.0 - 3.0 3. Air Conditioning Unit Assembler al prosthesis hear t valves, recurre nt systemic emboli sm. 3.0 - 4.5 PTT [id number] 12:10:00 Test Item Value Reference Range Interpretation Comments PTT ACTIVATED (test code = APTT) 25.7 SECONDS 22.0-33.0 N CBC W/AUTO [id number] 11:41:00 Test Item Value Reference Range Interpretation [...]
[2022-05-11 17:08] LABS: Absolute Lymphocytes (CBC) 1.3 K/uL (0.7-4.9); Hematocrit 36.1 % (39.6-49.0); Lymphocytes % 14.9 % (15.3-44.8); MCV 71.8 fL (80-100); MPV 8.6 fL (7.6-11.3); RBC Red Blood Cell Count 5.02 M/uL (4.33-5.43)
[2022-05-11 17:18] LABS: SARS-CoV-2 Antigen Rapid Res Positive (Negative)
[2022-05-11] MEDS ORDERED: HEPARIN 5000 UNIT/ML 1 ML VIAL ONE (17:20)
[2022-05-11] MEDS ORDERED: MORPHINE 4 MG/ML SYR ONE ×2 (17:20→22:40)
[2022-05-11] MEDS ORDERED: HEPARIN/D5W 0 UNIT/0 ML BAG IV ONE (17:21)
[2022-05-11] MEDS ORDERED: FAMOTIDINE 20 MG/2 ML VIAL IV ONE (17:21)
[2022-05-11] MEDS ORDERED: ONDANSETRON 4 MG/2 ML VIAL ONE ×3 (17:21→19:42)
--- NOTE | 2022-05-11 17:23 | RAD REPORT ---
EXAM DESCRIPTION: RAD - Chest Single View - 05/11/2022 5:15 pm CLINICAL HISTORY: CHEST PAIN Chest pain. COMPARISON: Chest Single View dated 01/19/2022; Chest Single View dated 01/16/2022; Chest Single View dated 10/02/2021; Chest Single View dated 08/24/2021 FINDINGS: Portable technique limits examination quality. Mild interstitial pulmonary edema. The heart is normal in size. No displaced fractures.Multi lead pac er/defibrillator device. IMPRESSION: Mild CHF.
[2022-05-11 17:37] LABS: Protime INR 1.1
[2022-05-11] MEDS ORDERED: NA CHLORIDE 0.9% 100 ML ONE (17:57)
[2022-05-11] MEDS ORDERED: AZITHROMYCIN 500 MG INJ IVPB ONE (17:57)
[2022-05-11] MEDS ORDERED: BEBTELOVIMAB 175 MG/2 ML VIAL IV ONE (17:58)
[2022-05-11 18:25] LABS: ALT/SGPT 15 U/L (12-78); AST/SGOT 8 U/L (15-37); Albumin 2.1 g/dL (3.4-5.0); Alkaline Phosphatase 59 U/L (45-117); BUN Blood Urea Nitrogen 26 mg/dL (7-18); Bicarbonate 28 mmol/L (21-32); Bilirubin Total 0.2 mg/dL (0.2-1.0); Glomerular Filtration Rate 66 ml/min (=/>90); Glucose Level 119 mg/dL (74-106); Magnesium 1.9 mg/dL (1.8-2.4); NT PRO-BNP 2354 pg/mL (<125); Protein, Total 5.9 g/dL (6.4-8.2); Sodium Level 144 mmol/L (136-145); Troponin High Sensitivity 9.7 pg/mL (<58.9)
[2022-05-11 18:26] LABS: Bilirubin Direct < 0.1 mg/dL (0-0.2)
[2022-05-11] MEDS ORDERED: NA CHLORIDE 0.9% 250 ML ONE (18:53)
[2022-05-11] MEDS ORDERED: PANTOPRAZOLE 40 MG INJ ONE (18:53)
[2022-05-11] MEDS ORDERED: KCL 20 MEQ/100 mL IVPB 100 ML IV ONE (18:53)
[2022-05-11] MEDS ORDERED: FUROSEMIDE 20 MG/ 2ML VIAL ONE (18:55)
--- NOTE | 2022-05-11 18:57 | ER ---
Nurse's Notes [facility] Name: Alexander Bowman Age: 61 yrs Sex: Male : 1960 Arrival Date: 05/11/2022 Time: 16:49 Bed 3 Private MD: Diagnosis: Chest pain, unspecified;GI Bleed/ Gastrointestinal hemorrhage, unspecified;Weakness;Unspecified combined systolic (congestive) and diastolic (congestive) heart failure;Coronavirus infection, unspecified;SARS-associated coronavirus as the cause of diseases classified elsewhere;Hypokalemia;Anemia, unspecified;Pleural effusion in other conditions classified elsewhere-LEFT Presentation: 05/11 16:51 Chief complaint: Patient states: Chest pain that began 1 hour ago. Pt self administered ss Nitro x 4. Pt reports chest pain is still 10/10. Coronavirus screen: Client denies travel out of the [place] in the last 14 days. Ebola Screen: Patient denies exposure to infectious person. Patient denies travel to an Ebola-affected area in the 21 days before illness onset. Initial Sepsis Screen: Does the patient meet any 2 criteria? No. Patient's initial sepsis screen is negative. Does the patient have a suspected source of infection? No. Patient's initial sepsis screen is negative. Risk Assessment: Do you want to hurt yourself or someone else? Patient reports no desire to harm self or others. Onset of symptoms was May 11, 2022. 16:51 Method Of Arrival: EMS: [facility] 16:51 Acuity: JACEY 2 ss Triage Assessment: 17:00 General: Appears distressed, uncomfortable, Behavior is cooperative, appropriate for bp age, anxious. Pain: Complains of pain in chest. EENT: No deficits noted. Neuro: No deficits noted. Cardiovascular: Rhythm is sinus tachycardia. Respiratory: No deficits noted. GI: No signs and/or symptoms were reported involving the gastrointestinal system. : No signs and/or symptoms were reported regarding the genitourinary system. Derm: No deficits noted. Musculoskeletal: No deficits noted. Historical: - Allergies: 17:08 Aspirin; ss 17:08 Codeine; ss 17:08 Ibuprofen; ss 17:08 Levofloxacin; ss 17:08 mycins; ss 17:08 PENICILLINS; ss 17:08 Sulfa (Sulfonamide Antibiotics); ss 17:08 Tylenol-Codeine #3; ss - PMHx: 17:08 Anxiety; Pneumonia; Myocardial infarction; Hypertension; COPD; Pneumothorax; ss - PSHx: 17:08 18" bowel removal; Stented artery; ss - Immunization history:: Adult Immunizations unknown. - Social history:: Smoking status: unknown. Screenin:00 Abuse screen: Denies threats or abuse. Denies injuries from another. Nutritional bp screening: No deficits noted. Nutritional screening: No deficits noted. Tuberculosis screening: No symptoms or risk factors identified. Fall Risk None identified. Assessment: 17:10 General: SEE TRIAGE N0TE. bp 17:59 Reassessment: AICD INTERROGATED. PER YuantikuTRONIC NO DEFIBRILLATION NOTED. bp 18:58 Reassessment: Patient appears in no apparent distress at this time. No changes from bp previously documented assessment. Vital Signs: 16:51 BP 127 / 99; Pulse 95; Resp 18; Temp 98.4(TE); Pulse Ox 98% on 2 lpm NC; Weight 66.68 ss kg; Height 6 ft. 0 in. (182.88 cm); Pain 10/10; 16:57 Weight 66.68 kg; bp 17:59 BP 149 / 90; Pulse 72; Resp 20; Pulse Ox 97% ; bp 18:57 BP 128 / 83; Pulse 73; Resp 25; Pulse Ox 93% ; bp 20:17 BP 144 / 83; Pulse 75; Resp 22; Pulse Ox 100% on R/A; Pain 0/10; aa9 16:51 Body Mass Index 19.94 (66.68 kg, 182.88 cm) ED Course: 16:49 Patient arrived in ED. bp 16:50 Emanuel Conley MD is Attending Physician. ren 16:52 Roland Lozoya, MICHELLE is Primary Nurse. bp 16:55 Inserted saline lock: 20 gauge in left antecubital area, using aseptic technique. bp 17:00 Patient has correct armband on for positive identification. Bed in low position. Call bp light in reach. Side rails up X2. Client placed on continuous cardiac and pulse oximetry monitoring. NIBP monitoring applied. 17:00 IV discontinued, intact, bleeding controlled. bp 17:08 Triage completed. ss 17:08 Arm band placed on right wrist. ss 17:17 XRAY Chest (1 view) In Process Unspecified. EDMS 19:00 Dr. Conley initiated transfer to [facility]. wm 19:31 Pt. accepted for transfer to [facility] RM#[id number] Yury Ventura \\T\\ 19:25 per Justin Childs. wm 19:35 US Extremity Venous W Compression Robert In Process Unspecified. EDMS 19:58 CT Chest For PE Angio In Process Unspecified. EDMS 22:41 No provider procedures requiring assistance completed. Patient transferred, IV remains as6 in place. Patient maintains SpO2 saturation greater than 95% on room air. Administered Medications: 17:00 Drug: Pepcid (famotidine) 20 mg Route: IVP; Site: left antecubital; bp 17:58 Follow up: Response: No adverse reaction bp 17:00 Drug: morphine 4 mg Route: IVP; Infused Over: 4 mins; Site: left antecubital; bp 17:58 Follow up: Response: No adverse reaction bp 17:00 Drug: Zofran (Ondansetron) 4 mg Route: IVP; Site: left antecubital; bp 17:58 Follow up: Response: No adverse reaction bp 17:57 Not Given (Patient Refused): Heparin (WI-Bolus No thrombolytic) - HEParin 60 units/kg bp IVP once; Max 5000 units 17:57 Not Given (Patient Refused): Heparin (WI Drip) 12 units/kg/hr - (HEParin 31274 units, bp D5W 500 ml) IV at calculated rate Per protocol; Max initial rate 1000 units/hr 17:58 Drug: Zithromax (azithromycin) 500 mg Route: PO; bp 17:58 Follow up: Response: No adverse reaction bp 18:30 Drug: Zofran (Ondansetron) 4 mg Route: IVP; Site: right antecubital; bp 18:39 Follow up: Response: No adverse reaction bp 18:37 CANCELLED (Duplicate Order): ProTONIX (pantoprazole) 40 mg IVP once ren 18:40 Drug: Lasix (furosemide) 20 mg Route: IVP; Site: right antecubital; bp 22:42 Follow up: Response: No adverse reaction as6 18:45 Drug: ProTONIX (pantoprazole) 80 mg Route: IVP; Site: right antecubital; bp 22:43 Follow up: Response: No adverse reaction as6 18:45 Drug: ProTONIX (pantoprazole) 8 mg/hr Route: IV; Rate: 25 ml/hr; Site: right bp antecubital; 22:44 Follow up: IV Status: Infusion continued upon transfer as6 19:38 Drug: Dilaudid (HYDROmorphone) 1 mg Route: IVP; Site: right antecubital; aa9 22:43 Follow up: Response: No adverse reaction as6 19:38 Drug: Zofran (Ondansetron) 4 mg Route: IVP; Site: right antecubital; aa9 22:43 Follow up: Response: No adverse reaction as6 19:43 Drug: Potassium Chloride 20 mEq Route: IV; Rate: per protocol; Site: right antecubital; aa9 22:43 Follow up: Response: No adverse reaction; IV Status: Completed infusion; IV Intake: as6 100ml 22:35 Drug: morphine 4 mg Route: IVP; Infused Over: 4 mins; Site: right antecubital; as6 22:43 Follow up: Response: No adverse reaction as6 Medication: 22:41 VIS not applicable for this client. as6 Intake: 22:43 IV: 100ml; Total: 100ml. as6 Outcome: 18:56 ER care complete, transfer ordered by MD. mcclure 22:41 Transferred by ground EMS to [facility], Transfer form completed. as6 X-rays sent w/ patient. 22:41 Condition: stable 22:41 Instructed on the need for transfer. 22:44 Patient left the ED. as6 Signatures: Dispatcher [employer] EDEmanuel Murillo MD MD cha Smirch, Shelby, RN RN ss Peltier, Brian, RN RN bp Marsh, Wendy wm Slawson, Ashby, RN RN as6 Manasa Macario RN RN aa9
--- NOTE | 2022-05-11 18:57 | EDPHYS ---
Physician Documentation [facility] Name: Alexander Bowman Age: 61 yrs Sex: Male : 1960 Arrival Date: 05/11/2022 Time: 16:49 Bed 3 Private MD: ED Physician Emanuel Conley HPI: 05/11 18:39 This 61 yrs old Male presents to ER via EMS with complaints of Chest Pain. ren 18:39 The patient or guardian reports chest pain that is located primarily in the anterior ren chest wall, left. Onset: 3 day(s) ago. The pain does not radiate. Associated signs and symptoms: Pertinent positives: shortness of breath. The chest pain is described as a heaviness, a pressure. Duration: The patient or guardian reports multiple episodes, with no pattern. Modifying factors: The symptoms are alleviated by nothing. the symptoms are aggravated by nothing. Severity of pain: At its worst the pain was mild moderate in the emergency department the pain has improved mildly. The patient has experienced similar episodes in the past, multiple times. Historical: - Allergies: 17:08 Aspirin; ss 17:08 Codeine; ss 17:08 Ibuprofen; ss 17:08 Levofloxacin; ss 17:08 mycins; ss 17:08 PENICILLINS; ss 17:08 Sulfa (Sulfonamide Antibiotics); ss 17:08 Tylenol-Codeine #3; ss - PMHx: 17:08 Anxiety; Pneumonia; Myocardial infarction; Hypertension; COPD; Pneumothorax; ss - PSHx: 17:08 18" bowel removal; Stented artery; ss - Immunization history:: Adult Immunizations unknown. - Social history:: Smoking status: unknown. ROS: 18:40 Constitutional: Negative for fever, chills, and weight loss, Eyes: Negative for injury, ren pain, redness, and discharge, ENT: Negative for injury, pain, and discharge, Neck: Negative for injury, pain, and swelling, Cardiovascular: Negative for chest pain, palpitations, and edema, Respiratory: Negative for shortness of breath, cough, wheezing, and pleuritic chest pain, Back: Negative for injury and pain, : Negative for injury, bleeding, discharge, and swelling, MS/Extremity: Negative for injury and deformity, Neuro: Negative for headache, weakness, numbness, tingling, and seizure, Psych: Negative for depression, anxiety, suicide ideation, homicidal ideation, and hallucinations, Allergy/Immunology: Negative for hives, rash, and allergies, Endocrine: Negative for neck swelling, polydipsia, polyuria, polyphagia, and marked weight changes, Hematologic/Lymphatic: Negative for swollen nodes, abnormal bleeding, and unusual bruising. 18:40 Abdomen/GI: Positive for abdominal pain, nausea and vomiting, abdominal cramps, rectal bleeding. Exam: 18:46 Constitutional: This is a well developed, well nourished patient who is awake, alert, ren and in no acute distress. Head/Face: Normocephalic, atraumatic. Eyes: Pupils equal round and reactive to light, extra-ocular motions intact. Lids and lashes normal. Conjunctiva and sclera are non-icteric and not injected. Cornea within normal limits. Periorbital areas with no swelling, redness, or edema. ENT: Nares patent. No nasal discharge, no septal abnormalities noted. Tympanic membranes are normal and external auditory canals are clear. Oropharynx with no redness, swelling, or masses, exudates, or evidence of obstruction, uvula midline. Mucous membranes moist. Neck: Trachea midline, no thyromegaly or masses palpated, and no cervical lymphadenopathy. Supple, full range of motion without nuchal rigidity, or vertebral point tenderness. No Meningismus. Chest/axilla: Normal chest wall appearance and motion. Nontender with no deformity. No lesions are appreciated. Cardiovascular: Regular rate and rhythm with a normal S1 and S2. No gallops, murmurs, or rubs. Normal PMI, no JVD. No pulse deficits. Respiratory: Lungs have equal breath sounds bilaterally, clear to auscultation and percussion. No rales, rhonchi or wheezes noted. No increased work of breathing, no retractions or nasal flaring. Back: No spinal tenderness. No costovertebral tenderness. Full range of motion. Male : Normal genitalia with no discharge or lesions. Skin: Warm, dry with normal turgor. Normal color with no rashes, no lesions, and no evidence of cellulitis. MS/ Extremity: Pulses equal, no cyanosis. Neurovascular intact. Full, normal range of motion. Neuro: Awake and alert, GCS 15, oriented to person, place, time, and situation. Cranial nerves II-XII grossly intact. Motor strength 5/5 in all extremities. Sensory grossly intact. Cerebellar exam normal. Normal gait. Psych: Awake, alert, with orientation to person, place and time. Behavior, mood, and affect are within normal limits. 18:46 ECG was reviewed by the Attending Physician. 18:46 Abdomen/GI: Inspection: abdomen appears normal, Bowel sounds: normal, Palpation: abdomen is soft and non-tender, Rectal exam: Stool: guaiac positive, Liver: no appreciated palpable abnormalities, Hernia: not appreciated. Vital Signs: 16:51 BP 127 / 99; Pulse 95; Resp 18; Temp 98.4(TE); Pulse Ox 98% on 2 lpm NC; Weight 66.68 ss kg; Height 6 ft. 0 in. (182.88 cm); Pain 10/10; 16:57 Weight 66.68 kg; bp 17:59 BP 149 / 90; Pulse 72; Resp 20; Pulse Ox 97% ; bp 18:57 BP 128 / 83; Pulse 73; Resp 25; Pulse Ox 93% ; bp 20:17 BP 144 / 83; Pulse 75; Resp 22; Pulse Ox 100% on R/A; Pain 0/10; aa9 16:51 Body Mass Index 19.94 (66.68 kg, 182.88 cm) ss MDM: 16:50 Patient medically screened. ren 18:49 Differential diagnosis: abnormal EKG, acute myocardial infarction, acute pericarditis, ren anxiety, coronary artery disease chest wall pain, Nonspecific abd pain, gastritis, cholecystitis, pancreatitis, diverticulitis, viral gastroenteritis, gastroenteritis, gastritis, diverticulitis, varices, esophagitis, gastritis, pancreatitis, peptic ulcer disease, pericarditis, pneumonia, pulmonary embolus, thoracic aortic disection, unstable angina. HEART Score: History: Highly Suspicious (2), ECG: Non specific repolarization disturbance / LBTB / PM (1), Age: > 45 and < 65 years (1), Risk Factors: > or = 3 Risk factors for atherosclerotic disease (2), [Hypercholesterolemia] [Hypertension] [+ Family HX] Troponin: < or = 1 x Normal Limit (0), Total Score = 6. The patient was not given aspirin in the Emergency Department. Aspirin not given, patient refused. The patient's deep vein thrombosis risk score was calculated as follows: Total Score: 0. This patient was found to be at low risk for a deep vein thrombosis by using the Well's assessment criteria. The patient's pulmonary embolism risk score was calculated as follows: Total Score: 0-2 points. This patient was found to be at low risk for a pulmonary embolism by using the Well's assessment criteria. MARGI Risk Score: 1 - Three or more CAD risk factors, [Family Hx], [HTN], [Elevated Cholesterol], 1- Known CAD, 1 - Recent [<24hrs] Severe Angina, TOTAL SCORE = 3. Data reviewed: vital signs, nurses notes, lab test result(s), EKG, radiologic studies, CT scan, doppler, plain films. Data interpreted: electronic device monitor: rate is 72 beats/min, rhythm is regular, Pulse oximetry: on room air is 97 %. Test interpretation: by ED physician or midlevel provider: ECG, plain radiologic studies. Counseling: I had a detailed discussion with the patient and/or guardian regarding: the historical points, exam findings, and any diagnostic results supporting the discharge/admit diagnosis, lab results, radiology results, the need to transfer to another facility, for higher level of care, [facility] does not immediately have the required specialist. 05/11 16:52 Order name: Basic Metabolic Panel; Complete Time: 18:30 ren 05/11 16:52 Order name: CBC with Diff; Complete Time: 18:22 [facility] 05/11 16:52 Order name: LFT's; Complete Time: 18:30 ren 05/11 16:52 Order name: Magnesium; Complete Time: 18:30 ren 05/11 16:52 Order name: NT PRO-BNP; Complete Time: 18:30 ren 05/11 16:52 Order name: PT-INR; Complete Time: 18:22 [facility] 05/11 16:52 Order name: Troponin HS; Complete Time: 18:30 ren 05/11 16:52 Order name: XRAY Chest (1 view); Complete Time: 18:22 [facility] 05/11 16:52 Order name: SARS RAPID; Complete Time: 18:22 [facility] 05/11 17:34 Order name: D-Dimer; Complete Time: 18:22 EDMS 05/11 18:23 Order name: US Extremity Venous W Compression Robert; Complete Time: 20:45 [facility] 05/11 18:23 Order name: CT Chest For PE Angio; Complete Time: 20:45 [facility] 05/11 19:27 Order name: Troponin High Sensitivity; Complete Time: 20:45 [facility] 05/11 16:52 Order name: EKG; Complete Time: 16:53 [facility] 05/11 16:52 Order name: Cardiac monitoring; Complete Time: 16:57 [facility] 05/11 16:52 Order name: EKG - Nurse/Tech; Complete Time: 16:57 [facility] 05/11 16:52 Order name: IV Saline Lock; Complete Time: 16:57 [facility] 05/11 16:52 Order name: Labs collected and sent; Complete Time: 17:36 [facility] 05/11 16:52 Order name: O2 Per Protocol; Complete Time: 16:57 [facility] 05/11 16:52 Order name: O2 Sat Monitoring; Complete Time: 16:57 [facility] 05/11 17:21 Order name: Misc. Order: BEBTELOVIMAB; Complete Time: 17:57 [facility] EC:46 Rate is 84 beats/min. QRS Tol[place] is Normal. IL interval is normal. QRS interval is ren normal. QT interval is normal. No Q waves. T waves are Normal. No ST changes noted. Clinical impression: NSR w/ Non-specific ST/T Changes and No evidence of ischemia. Interpreted by me. Reviewed by me. Administered Medications: 17:00 Drug: Pepcid (famotidine) 20 mg Route: IVP; Site: left antecubital; bp 17:58 Follow up: Response: No adverse reaction bp 17:00 Drug: morphine 4 mg Route: IVP; Infused Over: 4 mins; Site: left antecubital; bp 17:58 Follow up: Response: No adverse reaction bp 17:00 Drug: Zofran (Ondansetron) 4 mg Route: IVP; Site: left antecubital; bp 17:58 Follow up: Response: No adverse reaction bp 17:57 Not Given (Patient Refused): Heparin (VT-Bolus No thrombolytic) - HEParin 60 units/kg bp IVP once; Max 5000 units 17:57 Not Given (Patient Refused): Heparin (VT Drip) 12 units/kg/hr - (HEParin 61390 units, bp D5W 500 ml) IV at calculated rate Per protocol; Max initial rate 1000 units/hr 17:58 Drug: Zithromax (azithromycin) 500 mg Route: PO; bp 17:58 Follow up: Response: No adverse reaction bp 18:30 Drug: Zofran (Ondansetron) 4 mg Route: IVP; Site: right antecubital; bp 18:39 Follow up: Response: No adverse reaction bp 18:37 CANCELLED (Duplicate Order): ProTONIX (pantoprazole) 40 mg IVP once ren 18:40 Drug: Lasix (furosemide) 20 mg Route: IVP; Site: right antecubital; bp 22:42 Follow up: Response: No adverse reaction as6 18:45 Drug: ProTONIX (pantoprazole) 80 mg Route: IVP; Site: right antecubital; bp 22:43 Follow up: Response: No adverse reaction as6 18:45 Drug: ProTONIX (pantoprazole) 8 mg/hr Route: IV; Rate: 25 ml/hr; Site: right bp antecubital; 22:44 Follow up: IV Status: Infusion continued upon transfer as6 19:38 Drug: Dilaudid (HYDROmorphone) 1 mg Route: IVP; Site: right antecubital; aa9 22:43 Follow up: Response: No adverse reaction as6 19:38 Drug: Zofran (Ondansetron) 4 mg Route: IVP; Site: right antecubital; aa9 22:43 Follow up: Response: No adverse reaction as6 19:43 Drug: Potassium Chloride 20 mEq Route: IV; Rate: per protocol; Site: right antecubital; aa9 22:43 Follow up: Response: No adverse reaction; IV Status: Completed infusion; IV Intake: as6 100ml 22:35 Drug: morphine 4 mg Route: IVP; Infused Over: 4 mins; Site: right antecubital; as6 22:43 Follow up: Response: No adverse reaction as6 Disposition Summary: 05/11/22 18:56 Transfer Ordered Transfer Location: [facility] ren Reason: Higher level of care ren Condition: Stable ren Problem: new ren Symptoms: have improved ren Accepting Physician: TO SANTOS CAIN(05/11/22 22:44) as6 Diagnosis - Chest pain, unspecified ren - GI Bleed/ Gastrointestinal hemorrhage, unspecified ren - Weakness ren - Unspecified combined systolic (congestive) and diastolic (congestive) heart failure ren - Coronavirus infection, unspecified ren - SARS-associated coronavirus as the cause of diseases classified elsewhere ren - Hypokalemia ren - Anemia, unspecified ren - Pleural effusion in other conditions classified elsewhere - LEFT ren Forms: - Medication Reconciliation Form ren - SBAR form ren Signatures: Dispatcher [employer] EDMS Emanuel Conley MD MD cha Smirch, Shelby, RN RN ss Chema De La Torre, REFRIGERATION ENGINE OPERATOR-C REFRIGERATION ENGINE OPERATOR-Cla1 Roland Lozoya RN RN bp Saad Marte RN RN as6 Manasa Macario RN RN aa9 Corrections: (The following items were deleted from the chart) 17:34 17:22 D-[id number] ordered. EDMS EDMS 18:37 18:24 ProTONIX (pantoprazole) 40 mg IVP once ordered. ren ren 18:57 18:56 TO [facility] ren ren 20:30 18:57 TO [facility] ren ren 22:44 20:30 TO [facility] ren as6
[2022-05-11] MEDS ORDERED: HYDROMORPHONE HCL 2 MG/ML inj ONE (19:42)
--- NOTE | 2022-05-11 19:50 | RAD REPORT ---
EXAM DESCRIPTION: US - Extrem Venous W Compress Robert - 05/11/2022 7:33 pm CLINICAL HISTORY: PAIN Bilateral leg edema and swelling. COMPARISON: <Comparisons> TECHNIQUE: Real-time sonographic interrogation of the left and right lower extremity deep venous sys tems was performed. FINDINGS: Normal compressibility, flow augmentation, phasic flow and spontaneous flow is identified in both the left and right lower extremity deep venous systems. IMPRESSION: No sonographic evidence of left or right lower extremity deep venous thrombosis.
--- NOTE | 2022-05-11 20:16 | RAD REPORT ---
EXAM DESCRIPTION: CT - Chest For Pe Angio - 05/11/2022 7:57 pm CLINICAL HISTORY: Chest pain. CP COMPARISON: Thorax Wo Con dated 07/12/2016 TECHNIQUE: CT angiogram of the pulmonary arteries was performed with MIP. All CT scans are performed using dose optimization technique as appropriate and may include automated exposure control or mA/KV adjustment according to patient size. FINDINGS: No evidence of pulmonary thromboembolism. No acute aortic finding demonstrated. Mild interstitial pulmonary edema likely present. Small left pleural effusion. No concerning bony finding. IMPRESSION: No evidence of pulmonary thromboembolism. Mild interstitial pulmonary edema is seen with a small left pleural effusion.
[2022-05-12 00:27] VITALS: BP 127/99; TEMP 98.4; O2SAT 98
== END 2022-05-11 22:44 | disposition short-term general hospital (02) ==
LOC: ER 16:45
DX: U07.1 COVID-19 (principal); K92.2 Gastrointestinal hemorrhage, unspecified; R53.1 Weakness; D64.9 Anemia, unspecified; I50.40 Unspecified combined systolic (congestive) and diastolic (congestive) heart failure; J90 Pleural effusion, not elsewhere classified; E87.6 Hypokalemia; I10 Essential (primary) hypertension; J44.9 Chronic obstructive pulmonary disease, unspecified; Z88.0 Allergy status to penicillin; Z88.1 Allergy status to other antibiotic agents; Z88.3 Allergy status to other anti-infective agents; Z88.5 Allergy status to narcotic agent; Z88.6 Allergy status to analgesic agent
CPT/HCPCS: 85025; 80048; 36415; 83735; 85610; 85379; 80076; 84484 ×2; 83880; 71275; 71045; 93970; 99285; 87811; Q9967; J1940; J1644; C9113; J0456; J3480; J1170; J7050; J2405 ×3

== ENCOUNTER 2022-07-17 07:45 | Inpatient (IN) | payer OTHER ==
[~2022-07-17 07:45] MED LIST: NA CHLORIDE 0.9% 1,000 ML ONE
[2022-07-17] MEDS ORDERED: MIDAZOLAM HCL 2 MG/2 ML INJ ONE ×2 (07:49→11:02)
[2022-07-17] MEDS ORDERED: NA CHLORIDE 0.9% 1,000 ML ONE (07:49)
--- OUTSIDE RECORDS SUMMARY | 2022-07-17 07:52 | XMS REPORT | Continuity of Care Document ---
:1960 Author Organization [facility] t Address [address] [place] [address] Care Team Providers Name Role Phone Bob Weathers Primary Care Physician JYOTSNA QUINONEZ Attending Clinician Unavailable SUZIE COX Attending Clinician Unavailable Ho MACARIO, Kehinde Falcon Attending Clinician [phone] [place] MACARIO, Swtai Attending Clinician Zachary MACARIO, Fozia Ruelas Attending Clinician Mendy MACARIO, Suzie Mcgowan Attending Clinician [phone] Carson Mosher MD Attending Clinician Freddie MACARIO, Leeann Almanza Attending Clinician Lety Ball Attending Clinician KEHINDE COX Attending Clinician Unavailable Tamy Silvestre MD Attending Clinician Doctor Unassigned, [place] Attending Clinician Unavailable TAMY SILVESTRE Attending Clinician Unavailable BLAIR DE PAZ Attending Clinician Unavailable Russ HART, Sugey Attending Clinician SUGEY MARTINS Attending Clinician Unavailable DANGELO FREEMAN Attending Clinician Unavailable Tonia MACARIO, Dangelo Attending Clinician Marcelina Saleem MD Attending Clinician Varnu Quiroz MD Attending Clinician VARUN QUIROZ Attending Clinician Unavailable Laura MACARIO, Yohana Attending Clinician Ray Noble CRNA Attending Clinician [phone] Ace MACARIO, Keiry Lo Attending Clinician Baldev MACARIO, Blair Attending Clinician Addison Ramirez MD Attending Clinician Eleuterio Wang MD Attending Clinician [phone] SUKHWINDER CARBAJAL Attending Clinician Unavailable Solomon MACARIO, Sukhwinder Attending Clinician EILEEN BROWN Attending Clinician Unavailable Pc, Adc Vascular Room 1 - Attending Clinician Unavailable Pc, Adc Echo Room 1 - Attending Clinician Unavailable SWATI LAZO Admitting Clinician Unavailable MARCELINA SALEEM Admitting Clinician Unavailable TAMY SILVESTRE Admitting Clinician Unavailable Eleuterio Wang MD Admitting Clinician [phone] Payers Payer Name Policy Type Policy Number Effective Date Expiration Date Lyudmila ball [facility] [id number] 2014 PLUS 00:00:00 MEDICARE PART A \\T\\ [id number] 2014 B 00:00:00 [facility] [id number] 2014 00:00:00 MEDICARE A B [id number] 2014 00:00:00 MEDICAID [facility] [id number] 2014 00:00:00 MEDICAID [facility] [id number] 2014 00:00:00 MEDICAID [facility] [id number] 2014 00:00:00 Problems Condition Condition Condition Status Onset Resolution Last Treating Co mments Source Name Details Category Date Date Treatment Clinician Date 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 05-15 [facility] ulcer ulcer 00:00: Medical disease disease 00 Center Esophagiti Esophagiti Disease Active [facility] s, [place], [place] 05-15 [facility] E[facility] Ely 00:00: Medical grade D grade D 00 Center Chest pain Chest pain Disease Active [facility] not due to not due to 05-12 [facility] acute acute 00:00: Medical coronary coronary 00 Center syndrome syndrome GI bleed GI bleed Disease [facility] Medical 00 [place] Anemia Anemia Disease Active [facility] 10[facility]02 [facility] 00:[facility]: Medical 00 [place] Epigastric Epigastric Disease Active [facility] pain pain 10-02 [facility] 00:[facility]: Medical 00 [facility] 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 06[facility] disease disease 00:00: Medical involving involving 00 [facility] [place] coronary coronary artery of artery of [place] heart heart without without angina angina pectoris pectoris Pneumonia Pneumonia Disease Active [facility] due to due to 04-28 [facility] infectious infectious 00:00: Me dical organism organism 00 Center Chronic Chronic Disease Active [facility] obstructiv obstructiv 04-28 [facility] e e 00:00: Medical pulmonary pulmonary 00 Cent er disease disease with acute with acute lower lower respirator respirator y y infection infection Pneumothor Pneumothor Disease Active [facility] ax ax 04-25 [facility] 00:00: Medical 00 Center Allergies, Adverse Reactions, Alerts Allergy Allergy Status Severity Reaction(s) Onset Inactive Treating Comm ents Source Name Type Date Date Clinician IBUPROFE Allergy Active High Anaphylaxis [facility] 10[facility]02 [facility] 00:[facility]: Medical 00 Center Ibuprofe Propensi Active Anaphylaxis 2022-[address] n ty to 10-02 [facility] adverse 00:00: Medical reaction 00 Center s Aspirin Propensi Active Anaphylaxis 2018-09 Un mateusz [...] of 00:00: [place] 00 Medical Branch Penicill Propensi Active Shortness of 2018-09 Univers ins ty to Breath 0-16 ity of adverse 00:00: [place] reaction 00 Medical s Branch Sulfa Propensi Active Swelling 2018-09 Univer s (Sulfona ty to 0-16 ity of mide adverse 00:00: [place] Antibiot reaction 00 Medica l ics) s Branch Penicill DA Active U 2017-09 [facility] 00:00: Cui 00 [facility] Center Sulfa DA Active U 2017-09 [facility] (Sulfona 2-31 [place] mide 00:00: [place] Antibiot 00 Medical ics) Center codeine DA Active U 2017-09 [facility] 00:[facility]: [address] aspirin DA Active U 2017-09 [facility] 00:[facility]: [address] acetamin DA Active U 2017-09 [facility] ophen 00:[facility]: [address] Center levoflox DA Active U 2017-09 [facility] acin 00:[facility]: [address] ACETAMIN Allergy Active High Anaphylaxis [facility] OPHEN 04-29 00:00: 00 Acetamin Drug Active Anaphylaxis Pt states [facility] ophen Allergy 04-29 [facility] [address] [place] [address] up. SALICYLA Allergy Active [facility] JUAN 04-25 00:00: 00 CODEINE Allergy Active [facility] 04-25 00:00: 00 LEVOFLOX Allergy Active [facility] ACIN 04-25 00:00: 00 PENICILL Allergy Active [facility] INS 04-25 00:00: 00 SULFA Allergy Active [facility] (SULFONA 04-25 MIDE 00:00: ANTIBIOT 00 ICS) Salicyla Propensi Active [facility] juan ty to 04-25 [facility] adverse 00:00: Medical reaction 00 Center s Codeine Propensi Active [facility] ty to 04-25 [facility] adverse 00:00: Medical reaction 00 Center s Levoflox Propensi Active [facility] acin ty to 04-25 [facility] adverse 00:00: Medical reaction 00 Center s Penicill Propensi Active [facility] ins ty to 04-25 [facility] adverse 00:00: Medical reaction 00 Center s Sulfa Propensi Active [facility] (Sulfona ty to 04-25 [facility] mide adverse 00:00: Medical Antibiot reaction 00 Center ics) s Family History Family Member Diagnosis Comments Start Date Stop Date Source Natural brother Cancer [facility] Natural father Heart disease [facility] Natural mother Heart disease [facility] Social History Social Habit Start Date Stop Date Quantity Comments Source History of tobacco Snuff User Univer sity of use [place] [facility] History SDOH [facility] Non-Med Medical Center [facility] Medical Ce nter Lived Alcohol intake 2022-05-15 2022-05-[address] [facility] 00:00:00 00:00:00 non-drinker of Medical Ce nter alcohol (finding) History [facility] 2022-05-12 2022-05-[address] [facility] Transport Med 00:00:00 00:00:[address] History [facility] 2022-05-12 2022-05-[address] [facility] Housing Unable to 00:00:00 00:00:00 Medical Center Pay History [facility] 2022-05-12 2022-05-[address] [facility] Housing Homeless 00:00:00 00:00:00 Medical Center Last Year Exposure to 2022-01-28 2022-02-07 Not sure University SARS-CoV-2 (event) 00:00:00 13:21:00 [facility] Cigarettes smoked 2016-04-25 2016-04-[address] [facility] [address] [facility] current (pack per 00:00:00 00:00:00 Medical Center day) - Reported Cigarette 2016-04-25 2016-04-[address] [facility] [address] [facility] pack-years 00:00:00 00:00:00 [facility] Center Tobacco use and 2016-04-25 2016-04-25 Never used [facility] exposure 00:00:00 00:00:00 [facility] Center Sex Assigned At [birth year] [facility] 00:00:00 00:00:00 [facility] Center Smoking Status Start Date Stop Date Source Former smoker 2016-04-25 00:00:00 2016-04-25 00:00:00 [facility] Medications Ordered Filled Start Stop Current Ordering Indication Dosage Frequency Signature Comments Components Source Medication Medication Date Date Medication? Clinician (SIG) Name Name lisinopriL 2021- No 10mg QD Take [address] [facility] (PRINIVIL,Z 05-19 08-25 tablet (10 L [facility] ESTRIL) 10 00:00: 00:00 mg total) M edical MG tablet 00 :00 by mouth Center daily. fluticasone Yes bronchospas 1{puff} Inhale [address] -salmeterol 8-25 m puff by [facility] (ADVAIR) 13:21: prevention mouth via Medical 500-50 52 with COPD inhaler Cente r mcg/dose daily as diskus needed . inhaler fluticasone 0 Yes 1{puff} Q.5D Inhale [address] (FLOVENT 8-25 puff by [facility] HFA) 110 13:21: mouth via Medi julieta mcg/actuati [address] on inhaler (two) times daily. nitroglycer [address] 0[address] in 8-25 mg under [facility] (NITROSTAT) 13:21: the tongue Medical 0.4 MG SL 52 every 5 Center tablet (five) minutes as needed for Chest pain Put 1 pill under tongue every 5min as needed for chest pain.No more than 3 doses in 15min.Call 911 if pain is unrelieved 5min after 1st dose . chlordiazeP 0 Yes 10mg Q.[id number] Take [address] OXIDE 8-25 [id number] by mouth 3 [facility] (LIBRIUM) 13:21: 3D (three) Medic al 10 MG 52 times Center capsule daily. isosorbide 0 Yes 30mg QD Take [address] mononitrate 8-25 by mouth Luke s (IMDUR) 30 13:21: daily. Medic al MG 24 hr 52 Center tablet methocarbam 0 Yes 500mg Q.[id number] Take [address] oL 8-25 [id number] mg by [facility] (ROBAXIN) 13:21: 3D mouth 3 Medic al 500 MG 52 (three) Center tablet times daily. promethazin 0 Yes 25mg Take [address] [facility] e 8-25 by mouth [facility] (PHENERGAN) 13:21: every 4 Med ical 25 MG 52 (four) Center tablet hours as needed for Nausea or Vomiting. enalapril 0 Yes hypertensio 10mg Q.[id number] Take [address] (VASOTEC) 8-25 n [id number] by mouth 3 [facility] 10 MG 13:21: 3D (three) Medical tablet 52 times Center daily . dexlansopra 2021-0 2022- No 1{capsu Q.5D Take [address] zole 60 mg 8-25 08-25 le} capsule by [facility] capsule 10:47: 00:00 mouth 2 Medica l 37 :00 (two) Center times daily . psyllium 2021-2022- Yes 1{packe Q.5D Take [address] (METAMUCIL 05-18 t} packet by Daja es WITH SUGAR) 00:00: 23:59 mouth 2 Me dical 3.4 gram 00 :00 (two) Center packet times daily. sucralfate 2021-2021- No 1g Take [address] (CARAFATE) 05-18 mLs (1 g Luke s 100 mg/mL 00:00: 23:59 total) by Me dical suspension 00 :00 mouth Center every 6 (six) hours for 30 days. omeprazole 2021-2021- No 40mg Q.5D Take [address] [facility] 20 mg TbEC 05-18 by mouth 2 [facility] 00:00: 23:59 (two) Medical 00 :00 times Center daily for 30 days. loperamide 2021-2021- No 2mg Take [address] (IMODIUM) 2 05-18 capsule (2 L ukes mg capsule 00:00: 23:59 mg total) M edical 00 :00 by mouth 4 Center (four) times daily as needed for Diarrhea for up to 10 days. HYDROmorpho 2021-2021- No 2mg Take [address] [facility] [facility] ne 05-18 tablet (2 [facility] (DILAUDID) 00:00: 23:59 mg total) M edical 2 MG tablet 00 :00 by mouth Cent er every 4 (four) hours as needed for up to 10 days. Max Daily Amount: 12 mg omeprazole 2021-2021- No 20mg Q.5D Take [address] 20 mg TbEC 05-18 by mouth 2 [facility] 00:00: 00:00 (two) Medical 00 :00 times Center daily for 30 days. isosorbide 2021-0 Yes 30mg Take 30 mg U nivers mononitrate 5-17 by mouth ity of 30 mg 24 hr 13:42: [place]. [place] tablet 33 [place] [facility] methocarbam 2021-0 Yes 500mg Take 500 U nivers ol 5-17 mg by ity of (ROBAXIN) 13:42: mouth 3 [place] 500 mg 33 (three) Medical tablet times Branch daily. Dexlansopra 2-0 Yes Take by Uni vers zole 5-17 mouth 3 ity of (DEXILANT) 13:42: (three) [place] 60 mg 33 times Medical capsule daily. Branch fluticasone 2021-0 Yes Use in [facility] ers propionate 5-17 each ity of 50 13:42: nostril [place] mcg/actuati 33 daily. Medica l on nasal Branch spray proMETHazin 2-0 Yes 25mg Take 25 mg Univers e 25 mg 5-17 by mouth ity of tablet 13:42: every 4 [place] 33 (four) Medical hours as Branch needed. isosorbide 2022-0 Yes 30mg Take 30 mg U nivers mononitrate 5-17 by mouth ity of 30 mg 24 hr 13:42: daily. [place] tablet 33 [place] [facility] methocarbam 2021-0 Yes 500mg Take 500 U nivers ol 5-17 mg by ity of (ROBAXIN) 13:42: mouth 3 [place] 500 mg 33 (three) Medical tablet times Branch daily. Dexlansopra 2-0 Yes Take by Uni vers zole 5-17 mouth 3 ity of (DEXILANT) 13:42: (three) [place] 60 mg 33 times Medical capsule daily. Branch fluticasone 2021-0 Yes Use in [facility] ers propionate 5-17 each ity of 50 13:42: nostril [place] mcg/actuati 33 daily. Medica l on nasal Branch spray proMETHazin 2-0 Yes 25mg Take 25 mg Univers e 25 mg 5-17 by mouth ity of tablet 13:42: every 4 [place] 33 (four) Medical hours as Branch needed. isosorbide 2022-0 Yes 30mg Take 30 mg U nivers mononitrate 5-17 by mouth ity of 30 mg 24 hr 13:42: daily. [place] tablet 33 [place] [facility] methocarbam 2-0 Yes 500mg Take 500 U nivers ol 5-17 mg by ity of (ROBAXIN) 13:42: mouth 3 [place] 500 mg 33 (three) Medical tablet times Branch daily. Dexlansopra 2022-0 Yes Take by Uni vers zole 5-17 mouth 3 ity of (DEXILANT) 13:42: (three) [place] 60 mg 33 times Medical capsule daily. Branch fluticasone 2021-0 Yes Use in [facility] ers propionate 5-17 each ity of 50 13:42: nostril [place] mcg/actuati 33 daily. Medica l on nasal Branch spray proMETHazin 0 Yes 25mg Take 25 mg Univers e 25 mg 5-17 by mouth ity of tablet 13:42: every 4 [place] 33 (four) Medical hours as Branch needed. isosorbide 2021-0 Yes 30mg Take 30 mg U nivers mononitrate 5-17 by mouth ity of 30 mg 24 hr 13:42: daily. [place] tablet 33 [place] [facility] methocarbam 0 Yes 500mg Take 500 U nivers ol 5-17 mg by ity of (ROBAXIN) 13:42: mouth 3 [place] 500 mg 33 (three) Medical tablet times Branch daily. Dexlansopra 0 Yes Take by Uni vers zole 5-17 mouth 3 ity of (DEXILANT) 13:42: (three) [place] 60 mg 33 times Medical capsule daily. Branch fluticasone 0 Yes Use in [facility] ers propionate 5-17 each ity of 50 13:42: nostril [place] mcg/actuati 33 daily. Medica l on nasal Branch spray proMETHazin 0 Yes 25mg Take 25 mg Univers e 25 mg 5-17 by mouth ity of tablet 13:42: every 4 [place] 33 (four) Medical hours as Branch needed. traZODone 2021- No 50mg QD Take [address] (DESYREL) 1-18 -18 by mouth [facility] 50 MG 13:03: 00:00 nightly. Medical tablet 25 :00 Center tiotropium 2021-0 2021- No 18ug QD Inhale [address] (SPIRIVA) 1-18 -18 mcg by [facility] 18 mcg 13:03: 00:00 mouth via Medic al inhalation 16 :00 inhaler Center capsule daily. clonazePAM 2021-2021- No 1mg Take [address] (KlonoPIN) 18 -18 by mouth 2 [facility] 1 MG tablet 12:53: 00:00 (two) Medi julieta 26 :00 times Center daily as needed for Anxiety. sucralfate 2021- No 1g Q.25D Take [address] (CARAFATE) 10-11-17 mLs (1 g Luke s 100 mg/mL 00:00: 23:59 total) by Me dical suspension 00 :00 mouth 4 Center (four) times daily for 30 days. fluticasone 2021- No 2{spray [address] propionate 10-04 } by Nasal Luke s (FLONASE) 10:40: 00:00 route Medica l 50 36 :00 daily as Center mcg/actuati needed for on nasal Rhinitis. spray ferrous 2021- No 325mg Take [address] sulfate 325 10-04 tablet [facility] (65 FE) MG 00:00: 23:59 (325 mg Med ical EC tablet 00 :00 total) by [facility] mouth 3 (three) times daily with meals for 30 days. pantoprazol 2021- No 40mg Q.5D Take [address] e 10-04 tablet (40 [facility] (PROTONIX) 00:00: 23:59 mg total) M edical 40 MG 00 :00 by mouth 2 Center tablet (two) times daily for 30 days. docusate 2021- No 100mg Q.5D Take 1 [facility] sodium 10-04 capsule [facility] (COLACE) 00:00: 00:00 (100 mg Medic al 100 MG 00 :00 total) by Center capsule mouth 2 (two) times daily for 30 days. sucralfate 2021- No 1g Q.25D Take [address] (CARAFATE) 10-0418 mLs (1 g Luke [facility] 100 mg/mL 00:00: 00:00 total) by Me dical suspension 00 :00 mouth 4 Center (four) times daily for 30 days. morphine 2021- No 15mg Take [address] (MSIR) 15 10-04 tablet (15 [facility] MG tablet 00:00: 00:00 mg total) Me dical 00 :00 by mouth Center every 6 (six) hours as needed for Pain for up to 10 days. Max Daily Amount: 60 mg pantoprazol 2021- No 40mg Q.5D Take [address] [facility] e 10-04 tablet (40 [facility] (PROTONIX) 00:00: 00:00 mg total) M edical 40 MG 00 :00 by mouth 2 Center tablet (two) times daily for 30 days. ferrous 2021-2021- No 325mg Take [address] sulfate 325 10-04 tablet [facility] (65 FE) MG 00:00: 00:00 (325 mg Med ical EC tablet 00 :00 [facility] (three) times daily with meals for 30 days. docusate 2021- No 100mg Q.5D Take 1 [facility] sodium 10-04 capsule [facility] (COLACE) 00:00: 00:00 (100 mg Medic al 100 MG 00 :00 total) by Center capsule mouth 2 (two) times daily for 30 days. sucralfate 2021- No 1g Q.25D Take [address] (CARAFATE) 10-04 mLs (1 g [facility] 100 mg/mL 00:00: 00:00 total) by Me dical suspension 00 :00 mouth 4 Center (four) times daily for 30 days. traZODone 2021- No 50mg QD Take [address] (DESYREL) 10-03-10 by mouth [facility] 50 MG 10:26: 00:00 nightly. Medical tablet 59 :00 Center temazepam 2021- No 15mg Take [address] (RESTORIL) 10-03-10 by mouth Luke s 15 mg 10:26: 00:00 every Medical capsule 22 :00 night as Center needed for Sleep. naproxen 2021- No 500mg Take [address] (NAPROSYN) 10-03-10 mg by [facility] 500 MG 10:25: 00:00 mouth 2 Medical tablet 55 :00 (two) Center times daily with breakfast and dinner. clonazePAM 2021- No 1mg Take [address] (KLONOPIN) 10-03-10 by mouth 2 [facility] 1 MG tablet 10:23: 00:00 (two) Medi julieta 14 :00 times Center daily as needed for Anxiety. pravastatin 0 2021- No 40mg QD Take [address] (PRAVACHOL) 10-02 by mouth Daja es 40 MG 14:51: 00:00 daily. Medical tablet 25 :00 [place] chlordiazeP 2019-09 Yes 10mg Take 10 mg [...] Branch daily. Dexlansopra 2019-09 Yes Take by Uni vers zole 0-26 mouth 3 ity of (DEXILANT) 15:56: (three) [place] 60 mg 14 times Medical capsule daily. Branch hydrocodone 2019-09 Yes Take by Uni vers /acetaminop 0-26 mouth 4 ity o f hen 15:56: (four) [place] (VICODIN ES 14 times Medical ORAL) daily. Branch fluticasone 2019-09 Yes Use in [facility] ers propionate 0-26 each ity of 50 [...] [place] 14 times Medical daily. Branch hydrocodone 2019-09 Yes Take by Uni vers /acetaminop 0-26 mouth 4 ity o f hen 10:56: (four) [place] (VICODIN ES 14 times Medical ORAL) daily. Branch Fluticasone 2020-1 Yes 1{puff} Inhale 1 Univers -Salmeterol 0-26 Puff 3 ity of (ADVAIR 10:56: (three) [place] DISKUS) 14 times Medical 500-50 daily. Branch mcg/dose inhalation disk chlordiazeP 2020-1 Yes 10mg Take 10 mg Univers OXIDE 10 mg 0-26 by mouth 3 it y of capsule 10:56: (three) [place] 14 times Medical daily. Branch hydrocodone 2020-1 Yes Take by Uni vers /acetaminop 0-26 [...] [place] 14 times Medical daily. Branch hydrocodone 2020-1 Yes Take by Uni vers /acetaminop 0-26 mouth 4 ity o f hen 10:56: (four) [place] (VICODIN ES 14 times Medical ORAL) daily. Branch Fluticasone 2020-1 Yes 1{puff} Inhale 1 Univers -Salmeterol 0-26 Puff 3 ity of (ADVAIR 10:56: (three) [place] DISKUS) 14 times Medical 500-50 daily. Branch mcg/dose inhalation disk enalapril 2020-1 Yes [id number] 10mg Take 1 U nivers 10 mg 0-26 tablet by ity of tablet 00:00: mouth (two) Medical times Branch daily. enalapril 2019-1 Yes [id number] 10mg Take 1 U nivers 10 mg 0-26 tablet by ity of tablet 00:00: mouth (two) Medical times Branch daily. enalapril 2019-1 Yes [id number] 10mg Take 1 U nivers 10 mg 0-26 tablet by ity of tablet 00:00: mouth (two) Medical times Branch daily. enalapril 2019-1 Yes [id number] 10mg Take 1 U nivers 10 mg 0-26 tablet by ity of tablet 00:00: mouth (two) Medical times Branch daily. enalapril 2019-1 Yes HFrEF 10mg Take 1 Unive rs 10 mg 0-26 (heart tablet by ity of tablet 00:00: failure mouth with (two) Medical reduced times Branch ejection [...] (two) Medical times Branch daily with meals. meropenem 2021- No 1g Inject [address] (MERREM) 05-08 01-10 intravenou Luke s MBP 1 gm in 00:00: 00:00 sly every Medical 100 mL NS 00 :00 8 (eight) Cente r hours. lidocaine 2021- No Apply [facility] St (XYLOCAINE) 05-08 topically [facility] 5 % 00:00: 00:00 as needed. Medica l ointment 00 :00 Center Vital Signs Vital Name Observation Time Observation Value Comments Source WEIGHT 2022-05-18 06:15:00 70.262 kg WEIGHT 2022-05-17 04:37:00 91.445 kg HEIGHT 2022-05-12 00:04:00 182.9 cm WEIGHT 2022-05-12 00:04:00 91.627 kg WEIGHT 2022-05-18 06:15:00 70.262 kg WEIGHT 2022-05-17 04:37:00 91.445 kg HEIGHT 2022-05-12 00:04:00 182.9 cm WEIGHT 2022-05-12 00:04:00 91.627 kg WEIGHT 2022-05-18 06:15:00 70.262 kg WEIGHT 2022-05-17 04:37:00 91.445 kg HEIGHT 2022-05-12 00:04:00 182.9 cm WEIGHT 2022-05-12 00:04:00 91.627 kg HEIGHT 2021-10-11 13:11:00 190.5 cm WEIGHT 2021-10-11 13:11:00 83.462 kg HEIGHT 2021-10-11 13:11:00 190.5 cm WEIGHT 2021-10-11 13:11:00 83.462 kg HEIGHT 2021-10-02 13:00:00 190.5 cm WEIGHT 2021-10-02 13:00:00 91.627 kg HEIGHT 2021-10-02 13:00:00 190.5 cm WEIGHT 2021-10-02 13:00:00 91.627 kg HEIGHT 2021-10-02 13:00:00 190.5 cm WEIGHT 2021-10-02 13:00:00 91.627 kg Heart rate 2022-05-18 10:00:00 95 /min [facility] Respiratory rate 2022-05-18 10:00:00 18 /min [facility] Oxygen saturation in 2022-05-18 10:00:00 96 /min [facility] Arterial blood by Medical Ce nter Pulse oximetry Systolic blood 2022-05-18 08:02:00 109 mm[Hg] [facility] Diastolic blood 2022-05-18 08:02:00 57 mm[Hg] [facility] Body temperature 2022-05-18 08:02:00 36.56 Yoly [facility] Body weight 2022-05-18 06:15:00 70.262 kg [facility] BMI 2022-05-18 06:15:00 21.01 kg/m2 [facility] Body height 2022-05-12 00:04:00 182.9 cm [facility] Procedures Procedure Date / Time Performing Clinician Source Performed PHOSPHORUS 2022-05-18 04:06:00 Fozia Sharma [facility] PHOSPHORUS 2022-05-17 16:25:00 Fozia Sharma [facility] VITAMIN D, 25-HYDROXY 2022-05-17 03:15:00 Fozia Sharma [facility] PHOSPHORUS 2022-05-17 03:15:00 Fozia Sharma [facility] BASIC METABOLIC PANEL 2022-05-17 03:15:00 Fozia Sharma [facility] MAGNESIUM 2022-05-17 03:15:00 Fozia Sharma [facility] CBC W/PLT COUNT & AUTO 2022-05-16 13:54:[address] [facility] BASIC METABOLIC PANEL 2022-05-16 13:54:00 Fozia Sharma [facility] MAGNESIUM 2022-05-16 13:54:00 Fozia Sharma [facility] PHOSPHORUS 2022-05-16 13:54:00 Fozia Sharma [facility] PTH, INTACT 2022-05-16 13:54:00 Fozia Sharma [facility] CALCIUM, IONIZED 2022-05-16 13:54:00 Fozia Sharma [facility] PROLACTIN 2022-05-16 13:54:00 Fozia Sharma [facility] CBC W/PLT COUNT & AUTO 2022-05-16 13:54:[address] [facility] CBC W/PLT COUNT & AUTO 2022-05-15 04:37:00 Fozia Sharma [facility] DIFFERENTIAL Center GASTRIN 2022-05-15 04:37:00 Fozia Sharma [facility] BASIC METABOLIC PANEL 2022-05-15 04:37:00 Fozia Sharma [facility] MAGNESIUM 2022-05-15 04:37:00 Fozia Sharma [facility] PHOSPHORUS 2022-05-15 04:37:00 Fozia Sharma [facility] CBC W/PLT COUNT & AUTO 2022-05-15 04:37:[address] [facility] CBC W/PLT COUNT & AUTO 2022-05-14 17:33:[address] [facility] PARIETAL CELL ANTIBODY, 2022-05-14 17:33:00 Fozia Sharma [facility] IGG [place] INTRINSIC FACTOR BLOCKING 2022-05-14 17:33:00 Fozia Sharma [facility] ANTIBODY Center CBC W/PLT COUNT & AUTO 2022-05-14 17:33:00 Fozia Sharma [facility] DIFFERENTIAL [place] [facility] ABDOMEN/PELVIS WITH IV 2022-05-14 12:22:00 Nic Jerome [facility] CONTRAST Center CBC W/PLT COUNT & AUTO 2022-05-14 05:24:[address] [facility] BASIC METABOLIC PANEL 2022-05-14 05:24:00 Fozia Sharma [facility] MAGNESIUM 2022-05-14 05:24:00 Fozia Sharma [facility] PHOSPHORUS 2022-05-14 05:24:00 Fozia Sharma Harryjj [facility] CBC W/PLT COUNT & AUTO 2022-05-14 05:24:00 Fozia Sharma [facility] VITAMIN B12 2022-05-14 04:02:00 Fozia Sharma [facility] IRON, TIBC, % SAT. 2022-05-14 04:02:00 Fozia Sharma [facility] (WITHOUT FERRITIN) Center HC LAB HIV-1 AG W/HIV-1&2 2022-05-14 04:02:00 Zachary, Fozia Maggie [facility] AB Center RPR 2022-05-14 04:02:00 [facility] W/[facility]T COUNT & AUTO 2022-05-13 20:39:[address] [facility] CBC W/PLT COUNT & AUTO 2022-05-13 20:39:00 [facility] REPORT OF PROCEDURE - 2022-05-13 12:49:49 Mosher [facility] ENDOSCOPY URL Center TISSUE EXAM 2022-05-13 10:18:00 Vidhi [facility] ESOPHAGOGASTRODUODENOSCOP 2022-05-13 09:46:00 Carson Mosher [facility] Y, WITH BIOPSY Center CBC W/PLT COUNT & AUTO 2022-05-13 03:20:00 [facility] PT/APTT 2022-05-13 03:20:00 Zachary [facility]yn [facility] CBC W/PLT COUNT & AUTO 2022-05-13 03:20:00 Fozia Sharma [facility] 2D ECHO W/ DOPPLER 2022-05-12 15:51:45 Swati Lazo [facility] (CW/PW/COLOR) Center C-REACTIVE PROTEIN 2022-05-12 14:57:00 [facility] LACT[facility] ACID, VENOUS 2022-05-12 10:38:00 Fozia Sharma [facility] CBC W/PLT COUNT & AUTO 2022-05-12 10:38:00 [facility] CBC W/PLT COUNT & AUTO 2022-05-12 10:38:00 [facility] ECG 12-LEAD 2022-05-12 02:32:35 [facility] 12-LEAD 2022-05-12 02:32:35 Unknown, H[facility] CBC W/PLT COUNT & AUTO 2022-05-12 02:07:00 [facility] DIFFERENTIAL [place] COMPREHENSIVE METABOLIC 2022-05-12 02:07:00 [facility]EL Center HIGH SENSITIVITY TROPONIN 2022-05-12 02:07:00 [facility] I [place] PROTHROMBIN TIME/INR 2022-05-12 02:07:00 [facility] APTT 2022-05-12 02:07:00 [facility] D-DIMER 2022-05-12 02:07:00 [facility] LACTIC ACID, VENOUS 2022-05-12 02:07:00 [facility] B-TYPE NATRIURETIC FACTOR 2022-05-12 02:07:00 [facility] (BNP) Center TYPE AND SCREEN, 2022-05-12 02:07:00 [facility] AUTOMATED Center CBC W/PLT COUNT & AUTO 2022-05-12 02:07:00 [facility] DIFFERENTIAL [place] XR CHEST 1 VIEW PORTABLE 2022-05-12 01:22:[address] [facility] [address] [facility] Medical / BEDSIDE Center EKG-SCANNED 2022-05-11 00:00:00 Provider [facility] Scanning Center EXTERNAL PROVIDER RECORDS 2022-02-21 05:01:00 Doctor Unassigned, [facility] [place] [facility] AUTHORIZATION FOR RELEASE 2021-11-02 06:01:00 Doctor Unassigned, [facility] [place] [facility] REPORT OF PROCEDURE - 2021-10-04 08:56:25 Keiry Bello [facility] ENDOSCOPY URL Center TISSUE EXAM 2021-10-04 08:30:00 Keiry Bello [facility] ESOPHAGOGASTRODUODENOSCOP 2021-10-04 08:02:00 Keiry Bello [facility] Y, WITH BIOPSY Center ABORH, MANUAL 2021-10-04 04:36:00 Conchis Prescott [facility] COMPREHENSIVE METABOLIC 2021-10-04 03:42:00 Marcelina Saleem [facility] PANEL [place] CBC W/PLT COUNT & AUTO 2021-10-04 03:42:[address] [facility] Center MAGNESIUM 2021-10-04 03:42:00 Stiven [facility] PHOSPHORUS 2021-10-04 03:42:00 Saleem [facility] TYPE AND SCREEN, 2021-10-04 03:42:00 [facility] AUTOMATED [facility] CBC W/PLT COUNT & AUTO 2021-10-04 03:42:00 Marcelina Saleem [facility] CT ABDOMEN/PELVIS WITH IV 2021-10-03 16:42:00 [facility] 2D ECHO W/ DOPPLER 2021-10-03 07:41:01 Jaylin Hough [facility] (CW/PW/COLOR) Center COMPREHENSIVE METABOLIC 2021-10-03 03:51:00 Stiven [facility] CBC W/PLT COUNT & AUTO 2021-10-03 03:51:[address] [facility] Center MAGNESIUM 2021-10-03 03:51:00 Marcelina Saleem [facility] PHOSPHORUS 2021-10-03 03:51:00 Stiven [facility] HEMOGLOBIN A1C 2021-10-03 03:51:00 Stiven [facility] LIPID PANEL 2021-10-03 03:51:00 Stiven [facility] CBC W/PLT COUNT & AUTO 2021-10-03 03:51:00 Stiven [facility] URINALYSIS WITH 2021-10-02 23:23:00 Stiven [facility] MICROSCOPIC IF INDICATED Center SARS-COV2/RT-PCR ([facility] & 2021-10-02 22:58:00 Stiven [facility] REF LABS) Center XR ABDOMEN/KUB 1 VIEW 2021-10-02 17:46:00 Clover Ca [facility] PORTABLE [facility] ECG 12-LEAD 2021-10-02 15:15:06 Stiven [facility] CBC W/PLT COUNT & AUTO 2021-10-02 15:00:00 Stiven [facility] CBC W/PLT COUNT & AUTO 2021-10-02 15:00:00 Stiven [facility] Center COMPREHENSIVE METABOLIC 2021-10-02 15:00:00 Stiven [facility] PANEL Center MAGNESIUM 2021-10-02 15:00:00 Stiven [facility] PHOSPHORUS 2021-10-02 15:00:00 Stiven [facility] PROTHROMBIN TIME/INR 2021-10-02 15:00:00 Stiven [facility] LACTIC ACID, VENOUS 2021-10-02 15:00:00 Stiven [facility] HIGH SENSITIVITY TROPONIN 2021-10-02 15:00:00 Marcelina Saleem [facility] B-TYPE NATRIURETIC FACTOR 2021-10-02 15:00:00 Marcelina Saleem [facility] (BNP) Center TSH/FREE T4 IF INDICATED 2021-10-02 15:00:00 Stiven [facility] FERRITIN 2021-10-02 15:00:00 Stiven [facility] IRON, TIBC, % SAT. 2021-10-02 15:00:00 Marcelina Saleem [facility] (WITHOUT FERRITIN) Center VITAMIN B12 AND FOLATE 2021-10-02 15:00:00 [facility] RETICULOCYTE COUNT 2021-10-02 15:00:00 [facility] PERIPHERAL BLOOD SMEAR - 2021-10-02 15:00:00 Marcelina Saleem [facility] PATHOLOGIST REVIEW Center T4, FREE 2021-10-02 15:00:00 Stiven [facility] LIPASE 2021-10-02 15:00:00 Clover Ca [facility] Center XR CHEST 1 VIEW PORTABLE 2021-10-02 14:34:00 Marcelina Saleem [facility] / BEDSIDE Center 2D ECHO W/ DOPPLER 2021-10-02 14:07:22 [facility] (CW/PW/COLOR) Center EKG-SCANNED 2021-10-02 00:00:00 Provider, Josemanuel [facility] Medical Scanning [place] ARRYTHMIA IMPLANT REPORT 2021-10-02 00:00:00 Provider, Josemanuel Gomez [facility] Medical - SCAN Scanning Center MEDICATION CORRESPONDENCE 2021-01-13 05:01:00 Doctor Unassigned, [facility] Plan of Care Planned Activity Planned Date Details Comments Source Future Scheduled 2024-10-03 [facility] (procedure) [code = Medical Center 65271074] Future Scheduled 2022-05-25 INFLUENZA VACCINE (#1[facility]00 [code = INFLUENZA Medical Ce nter VACCINE (#1)] Future Scheduled 2021-09-[address] [facility] Test 00:00:00 (12+) [code = [facility] Center DEPRESSION SCREENING (12+)] Future Scheduled 2021-07-19 Depression screening [facility] Test 00:00:00 (procedure) [code = Medical Branch 534014881] Future Scheduled 2021-05-25 INFLUENZA VACCINE [facility] Test 00:00:00 (Season Ended) [code = Medic al Branch INFLUENZA VACCINE (Season Ended)] Future Scheduled 2016 Screening for [facility] Test 00:00:00 malignant neoplasm of Medica l Branch lung (procedure) [code = 159473524] Future Scheduled 2015-06-[address] [facility] 00:00:00 WELLNESS (YEAR 2 or Medical Center FIRST YEAR if no IPPE) [code = MEDICARE ANNUAL WELLNESS (YEAR 2 or FIRST YEAR if no IPPE)] Future Scheduled 2011 SHINGLES VACCINES ([address] [facility] Test 00:00:00 of 2) [code = SHINGLES Medic al Center VACCINES (1 of 2)] Future Scheduled 2011 Screening for occult [facility] Test 00:00:00 blood in feces Medical Bran h (procedure) [code = 189636434] Future Scheduled 2011 Stool DNA-based [facility] Test 00:00:00 colorectal cancer Medical Br anch screening (procedure) [code = 646024809673381] Future Scheduled 2011 Flexible fiberoptic [facility] Test 00:00:00 sigmoidoscopy Medical Branch (procedure) [code = 63209108] Future Scheduled 2011 Screening for [facility] Test 00:00:00 malignant neoplasm of Medica l Branch colon (procedure) [code = 374563963] Future Scheduled 2011 Screening for [facility] Test 00:00:00 malignant neoplasm of Medica l Branch colon (procedure) [code = 717618422] Future Scheduled 2011 Zoster Recombinant [facility] Test 00:00:00 Vaccine (SHINGRIX) (1 Medica l Branch of 2) [code = Zoster Recombinant Vaccine (SHINGRIX) (1 of 2)] Future Scheduled 1980 DTAP/TDAP/TD VACCINES [facility] 00:00:00 (1 - Tdap) [code = Medical C enter DTAP/TDAP/TD VACCINES (1 - Tdap)] Future Scheduled 1980 DTaP,Tdap,and Td [facility] Test 00:00:00 Vaccines (1 - Tdap) Medical Branch [code = DTaP,Tdap,and Td Vaccines (1 - Tdap)] Future Scheduled 1979 HEPATITIS C SCREENING [facility] 00:00:00 [code = HEPATITIS C Medical Center SCREENING] Future Scheduled [address] [facility] Test 00:00:00 0-64 YRS (1 - PCV) Medical C enter [code = PNEUMOCOCCAL VACCINE 0-64 YRS (1 - PCV)] Future Scheduled 1967 PNEUMOCOCCAL 0-64 [facility] [place] Test 00:00:00 YEARS COMBINED SERIES Medica l Branch (1 of 1 - PPSV23) [code = PNEUMOCOCCAL 0-64 YEARS COMBINED SERIES (1 of 1 - PPSV23)] Future Scheduled 1962-03-06 COVID-19 VACCINE (#1) [facility] 00:00:00 [code = COVID-[address] VACCINE (#1)] Future Scheduled [address] [facility] Test 00:00:00 (combo) [code = CT Medical C enter Colonography (combo)] Future Scheduled [address] [facility] 00:00:00 malignant neoplasm of Medica l Center colon (procedure) [code = 477987546] Future Scheduled [address] [facility] Test 00:00:00 malignant neoplasm of Medica l Center colon (procedure) [code = 239905394] Future Scheduled [address] [facility] Test 00:00:00 malignant neoplasm of Medica l Center colon (procedure) [code = 582026183] Future Scheduled [address] [facility] [facility] Test 00:00:00 malignant neoplasm of Medica l Center colon (procedure) [code = 763062143] Future Scheduled 1961 Sigmoidoscopy [code = [facility] 00[facility] Sigmoidoscopy] Medical Cente r Future Scheduled 1961 Hepatitis C screening [facility] [place] Test 00:00:00 (procedure) [code = Medical Branch 263421466] Encounters Start End Encounter Admission Attending Care Care Encounter Source Date/Time Date/Time Type Type Clinicians Facility Department ID 2022-07-14 Outpatient [facility] [id number] [place] 16:18:45 [id number] [facility] 2022-07-11 Outpatient [facility] [id number] [place] 07:23:14 [id number] [facility] 2022-07-07 Outpatient [facility] [id number] [place] 12:22:05 [id number] [facility] 2021-07-25 Emergency [facility] [id number] Univers 02:36:54 ity of [facility] 2022-07-18 2022-07-18 Outpatient CRISTIANO [facility] [id number] [place] 13:40:00 13:40:00 [facility] 2022-05-11 2022-05-18 Inpatient ER [facility] [id number] [facility] 21:30:00 13:21:00 [facility] 2022-05-11 2022-05-18 Hospital Ho Kehinde Ezekiel [facility] [id number] [facility] 21:30:00 13:21:00 Encounter Swati Lazo [facility] Fozia [facility] 2022-05-13 2022-05-[address] [facility] [id number] [facility] 14:24:00 15:14:00 [facility] 2022-05-13 2022-05-13 Anesthesia Freddie Leeann Gossoine [facility] [id number] [facility] 09:56:00 10:39:00 Event Lety Mendez [facility] 2022-05-12 2022-05-12 Outpatient [facility] [id number] [facility] 00:00:00 23:59:00 [facility] 2022-05-12 2022-05-12 Travel [facility] [id number] [facility] 00:00:00 00:00:00 [facility] 2022-05-11 2022-05-11 Outpatient [facility] [id number] [facility] 21:30:00 23:59:00 [facility] 2022-02-23 2022-02-23 Telephone [facility] [id number] Univers 00:00:00 00:00:00 Tamy PARDO 350.1.13.10 i Aliza 4.2.7.2.686 Eloisa ZUNIGA [id number] Az dical NAL [address] [employer] 2022-02-21 2022-02-21 Orders Doctor KIERA 1.2.840.114 [id number] Univers 00:00:00 00:00:00 Only Unassigned, KRZYSZTOF 350.1.13.10 ity of [place] [facility] 4.2.7.2.686 Darío as [phone] [address] 2022-02-15 2022-02-15 [facility] [id number] Univers 00:00:00 00:00:00 TAMY hill [facility] 2022-02-15 2022-02-15 [facility] [id number] Univers 00:00:00 00:00:00 TAMY joshua [facility] 2022-02-09 2022-02-09 Telephone [facility] 1.2.840.114 [id number] Univers 00:00:00 00:00:00 Tamy PARDO 350.1.13.10 i [place] [phone] Az dical NAL [address] [place] [address] 2022-02-08 2022-02-08 Orders Doctor KIERA 1.2.840.114 [id number] Univers 00:00:00 00:00:00 Only Unassigned, KRZYSZTOF 350.1.13.10 ity of [place] [facility] 4.2.7.2.686 [place]ío as [phone] [address] 2022-02-07 2022-02-07 [facility] [id number] Univers 16:15:00 16:15:00 TAMY hill [facility] 2022-02-07 2022-02-07 Out[facility] [id number] Univers 13:45:00 15:08:28 TAMY hill [facility] 2022-02-07 2022-02-07 Office [facility] [id number] Univers 13:45:00 15:08:28 Visit Tamy PARDO 350.1.13.10 i [place] [phone] Az dical [address] 2022-02-07 2022-02-07 Outpatient R KONRAD [facility] [id number] Univers 13:45:00 15:08:28 TAMY ity [facility] 2021-11-02 2021-11-02 Orders Doctor KIERA 1.2.840.114 [id number] Univers 00:00:00 00:00:00 Only Unassigned, KRZYSZTOF 350.1.13.10 [facility]y [facility] 4.2.7.2.686 Darío as [phone] [address] 2021-10-19 2021-10-19 Outpatient R BALDEV [facility] [id number] Univers 10:20:00 10:20:00 BLAIR [place] o f [facility] 2021-10-11 2021-10-[address] [facility] [id number] 14:00:00 14:15:00 Telemedici [facility] 2021-10-11 2021-10-11 Outpatient MAN MARTINS [facility] SLE [id number] SLE 13:18:39 13:18:39 [facility] 2021-10-11 2021-10-11 Outpatient MAN MARTINS [facility] [id number] [facility]H 00:00:00 00:00:00 [facility] 2021-10-02 2021-10-04 [facility] Dangelo Freeman [facility] [id number] 12:35:00 14:04:00 Encounter Marcelina Saleem [facility] 2021-10-02 2021-10-04 Inpatient ER EDWAR, [facility] Gastro [id number] SLE 12:35:00 14:04:00 [facility] 2021-10-04 2021-10-[address] [facility] [id number] 08:12:00 09:02:00 Event Ray Noble [facility] 2021-10-04 2021-10-[address] [facility] [id number] 08:00:00 09:00:00 Keiry Lo [facility] 2021-10-03 2021-10-03 Outpatient [facility] [id number] [facility] 00:00:00 23:59:00 Bimal Medicin aye 2021-10-02 2021-10-[address] [facility] [id number] [facility] 00:00:00 00:00:00 socorro [facility] 2021-08-10 2021-08-10 Telephone [facility] 1.2.840.114 [id number] Univers 00:00:00 00:00:00 Tamy PARDO 350.1.13.10 i [place] [id number] Az dic[address] 2021-08-04 2021-08-04 Outpatient R BRONSON [facility] [id number] Univers 14:54:13 23:59:00 TAMY itjoshua of [facility] 2021-08-04 2021-08-04 [facility] 1.2.840.114 [id number] Univers 14:54:13 23:59:00 Encounter Tamy PARDO 350.1.13.10 [place] [phone] [facility] [address] [place] 2021-08-04 2021-08-04 Orders Doctor KIERA 1.2.840.114 [id number] Univers 00:00:00 00:00:00 Only Unassigned, KRZYSZTOF 350.1.13.10 ity of [place] [facility] 4.2.7.2.686 Darío as [phone] [facility] [address] 2021-07-29 2021-07-29 Telephone [facility] 1.2.840.114 [id number] Univers 00:00:00 00:00:00 Tamy EDVIN 350.1.13.10 i [place] [phone] Az dical NAL [address] [employer] 2021-06-06 2021-06-06 Outpatient [facility] [id number] Univers 10:15:00 10:15:00 TAMY [place] [facility] 2021-05-27 2021-05-27 Outpatient [facility] [id number] Univers 00:00:00 00:00:00 TAMY hill [facility] 2021-05-25 2021-05-25 Orders Doctor KIERA 1.2.840.114 [id number] Univers 00:00:00 00:00:00 Only Unassigned, KRZYSZTOF 350.1.13.10 ity of [place] [facility] 4.2.7.2.686 [place] as [phone] [address] 2021-05-19 2021-05-19 Office [facility] [id number] Univers 14:42:06 16:05:39 Visit Tamy Pardo 350.1.13.10 i [place] [phone] Az dical formerly [facility] 188 [facility] 2021-05-19 2021-05-19 Outpatient [facility] [id number] Univers 14:30:00 16:05:39 TAMY hill [facility] 2021-05-17 2021-05-17 Telephone [facility] [id number] Univers 00:00:00 00:00:00 Blair Pardo 350.1.13.10 [place] [phone] Az dical nal [address] [place] [address] 2021-05-17 2021-05-17 Telephone [facility] [id number] Univers 00:00:00 00:00:00 Blair Pardo 350.1.13.10 [place] [phone] Az dical nal 9 [facility] 2021-03-31 2021-03-31 Telephone [facility] [id number] Univers 00:00:00 00:00:00 Vandarodo Pardo 350.1.13.10 [place] [phone] Az dicnc nal 059 [facility] 2021-03-14 2021-03-14 Emergency Addison Ramirez [facility] 1.2.840. 114 [id number] Univers 13:23:00 16:01:00 Kathleen Eleuterio Pardo 3 50.1.13.10 [place] Kirvin [phone] [facility] [address] [place] 2021-01-17 2021-01-17 Outpatient [facility] [id number] Univers 14:00:00 14:00:00 BLAIR [place] o f [facility] 2021-01-13 2021-01-13 Orders Doctor KIERA 1.2.840.114 [id number] Univers 00:00:00 00:00:00 Only Unassigned, KRZYSZTOF 350.1.13.10 ity of [place] [facility] 4.2.7.2.686 Darío as [phone] [facility] [address] [place] 2020-08-02 2020-08-02 Outpatient R SOLOMON [facility] [id number] Univers 08:00:00 08:00:00 SUKHWINDER ity of [facility] 2020-07-19 2020-07-19 Office [facility] 1.2.840.114 [id number] Univers 10:39:13 11:26:38 Visit Blair Pardo 350.1.13.10 [place] [facility] [phone] Az chadwicknc nal 9 [facility] 2020-07-19 2020-07-19 Outpatient R BALDEV [facility] [id number] Univers 11:00:00 11:00:00 [place] o [place] [facility] 2020-07-19 2020-07-19 Orders Doctor KIERA 1.2.840.114 [id number] Univers 00:00:00 00:00:00 Only Unassigned, KRZYSZTOF 350.1.13.10 ity of [place] [facility] 4.2.7.2.686 [place]ío as [phone] [facility] [address] [place] 2020-07-15 2020-07-15 Telephone [facility] [id number] [id number] Univers 00:00:00 00:00:00 Blair Hernandezton 350.1.13.10 [place] [phone] [address] 2020-07-15 2020-07-15 Telephone Luis Ejanina Argenis [id number] [id number] Univers 00:00:00 00:00:00 Sukhwinder Krzysztof 350.1.13.10 it y of [facility] 4.2.7.2.686 [place] [phone] [facility] [address] [place] 2020-07-02 2020-07-02 Telephone [facility] [id number] Univers 00:00:00 00:00:00 Sukhwinder [place] 350.1.13.10 [place] [phone] [address] 2020-06-01 2020-06-01 Office [facility] 1.2.840.114 [id number] Univers 13:36:20 14:19:54 Visit Sukhwinder [place] 350.1.13.10 [place] [phone] [address] 2020-06-01 2020-06-01 Outpatient R [facility] [id number] Univers 13:40:00 13:40:00 SUKHWINDER ity of [facility] 2020-06-01 2020-06-01 [facility] [id number] Univers 00:00:00 00:00:00 Sukhwinder [place] 350.1.13.10 [place] [phone] [address] 2020-06-01 2020-06-01 Orders Doctor QURESHI 1.2.840.114 [id number] Univers 00:00:00 00:00:00 Only Unassigned, KRZYSZTOF 350.1.13.10 ity of [place] [facility] 4.2.7.2.686 Darío as [phone] [address] 2020-05-14 2020-05-14 Outpatient R [facility] [id number] Univers 10:45:00 10:45:00 EILEEN jerez [facility] 2020-05-13 2020-05-13 Telephone [facility] [id number] [id number] Univers 00:00:00 00:00:00 Vandanaheedtimo [place] 350.1.13.10 [place] Profess[place] [phone] Az dicnc nal [address] [place] [address] 2020-05-09 2020-05-09 [facility] [id number] [id number] Univers 00:00:00 00:00:00 Qianaheedjun [place] 350.1.13.10 [place] [phone] Az dicnc nal [address] [place] [address] 2020-04-23 2020-04-23 [facility] [id number] Univers 00:00:00 00:00:00 Vandanaheedtimo [place] 350.1.13.10 [place] [phone] Az dicnc nal [address] [place] [address] 2020-04-09 2020-04-09 Outpatient R [facility] [id number] Univers 10:00:00 10:00:00 EILEEN jerez [facility] 2020-03-26 2020-03-26 Orders Doctor KIERA 1.2.840.114 [id number] Univers 00:00:00 00:00:00 Only Unassigned, KRZYSZTOF 350.1.13.10 ity of [facility] 4.2.7.2.686 Darío as [phone] [address] 2020-03-17 2020-03-17 [facility] [id number] Univers 00:00:00 00:00:00 Q[place]jun [place] 350.1.13.10 [place] [phone] Az dicnc nal [address] [place] [address] 2020-01-12 2020-03-14 Telemedici Baldev, [facility] 1.2.840.114 [id number] Univers 08:28:45 20:11:05 ne Visit Blair Pardo 350.1.13.10 [place] [phone] [address] 2020-03-12 2020-03-12 Acid Washer Operator Pc, Adc Vascular Room 1 [facility] 1.2.840.114 [id number] Univers 08:03:53 09:03:53 Visit Blair De Paz 350.1.13.10 it[place] [phone] [address] 2020-03-12 2020-03-12 Acid Washer Operator Pc, Adc Vascular Room 1 [facility] 1.2.840.114 [id number] Univers 08:03:04 09:03:04 Visit Blair De Paz 350.1.13.10 [place] [phone] [address] 2020-03-12 2020-03-12 Outpatient R [facility] [id number] Univers 09:00:00 09:00:00 ity of [facility] 2020-03-12 2020-03-12 Outpatient R [facility] [id number] Univers 08:00:00 08:00:00 ity of [facility] 2020-03-09 2020-03-09 Laboratory Pc, Adc Echo Room 1 [facility] 1 .2.840.114 [id number] Univers 09:57:31 10:57:31 Only Blair De Paz 350.1.13.10 [place] [phone] [facility] nal [address] [place] [address] 2020-03-09 2020-03-09 Outpatient R [facility] [id number] Univers 10:00:00 10:00:00 ity [facility] 2020-01-12 2020-01-12 Outpatient R BALDEV [facility] [id number] Univers 13:20:00 13:20:00 BLAIR jerez [facility] Results Test Description Test Time Test Comments Results Result Comments Source PHOSPHORUS 2022-05-18 05:19:44 Test Item Value Reference Range Interpretation Comme nts PHOSPHORUS (BEAKER) (test code = 604) 1.9 mg/dL 2.3-4.7 L Hazardous Substances Scientist ID - ROGERIO [id number] 17:28:43 Test Item Value Reference Range Interpretation Comments PHOSPHORUS (BEAKER) (test code = 2.0 mg/dL 2.3-4.7 L 604) Hazardous Substances Scientist ID - HARSH MTissue [id number] 17:26:26 Test Item Value Reference Range Interpretation Comments Case Report (test code Surgical Pathology = 104) Report Case: [id number] Authorizing Provider: Carson Mosher MD Collected: 05/13/2022 10:18 AM Ordering Location: [address] Received: 05/15/2022 07:38 AM Service Pathologist: Joanne Rubio MD Specimen: Biopsy, Gastric, gastric ulcer bx DIAGNOSIS (test code = [id number] 3220) FuZzEwMzNcZnRuYmpcdWMx IHtccnRmMVxlcGljOTYwMl lvfyVxHNCcfNQnK4Xdheld NZesCJ9pPT2tvAosjWVlsW BxJEGoGqUfn2sds146jQQc q3lvDLLZjumzaYd7eXhcW7 7fn2W9IemxM67bbZBxDKX7 IOZsFFXfwPHyOGMwCST9WA KtpBOhF7tkULCfOD8ffffs VCftKJfjRKIicIF6RICcmC XmL7XiVYTyQCtvITHyvoq5 EaLpGm2cwWHxcIlxZAfyML PhMVDwGZlxEPHzTeTgK4QI TUFDSCwgVUxDRVIsIEJJT1 IERBrciJAqMFCqAA9tM0rI R70GQnDMWsFTAKzOLZVAME NULrvSBJLoR0mDKYBYOYBV RZkPQUOAMZVYC6BejVIxLM UnWA0lKz0wWJ5TRXHPAX2D LOLIZETXVNyKL6xFNF6BFW SYY8GXRXVSSWltYTDdLRCd LSBOTyBERUZJTklUSVZFIE jLLPzHB6GJC7HECbACPUlD LcvnITkYUg1SBkzBIplQSA BJREVOVElGSUVEIEJZIElN MTHWI0ORSUuBSXJbpqsyDH RuA8GtaBukkLMpOTCvXZRc yx41SFE4ZdVno7K8PXS2JZ AhTBTvm0roLPXmmJVnYiOo MzNcZnRuYmpcdWMxXGRlZm Rqd8eqj986tOLrv2znQGZk MsN7xYXeHDTznODcY532KI NpSQfbd2piz4BsFOEclVEv r8X5EFXMvhnnuDe3oFgqD6 5sx6D7OhiqK7mkAGXlXXBg D5QaRZ7cGPWhCrw0XDH6KV S3SATcGZYtY9GqXZ9gWNYw qGHrLOn8b9uxeFweIZDxRD A3o3xqAXpsfjElRS5mvr3h dSo3l9nrjuDsNCEvGPJaxJ QQPXNqG2WyhRowVp7ihCt7 uOypKzomJUH4Bbs4VT0wfy 21wdz8iCnpZREcmuzhMmJ8 KRmnXELeiqbvLWp4DJqlTB SeiLL0FWIpmNAyU2BrLYEt GX6rmai3ULN6TKqhYNEsCb J5JKNedHStITKszKdxEEqg i134DJW7HxKcJR9cU6Dfg6 Q6pN6eqIKdITZbdIAsHlQh NAPelr1tfKIkFXiot0TqAO D2bvY6gNYfkNPmOOZeIwP4 OEcvME3rke28OBCwRIQ6vo 5ybGNccGdicmRyaGVhZFxw P1BnRNDjl045ACPqZ0BkTQ Rux6R5mvNkXaOiJOPtlSM1 vcG8FVXkKK4bbnlga2rfNG jfTEyeOTNbbnG8mcD5CBMo dPOcK5LrtX6rTZRgZA7fyp urk2kvOOT1NNzgIGLbSYT7 TlBqFDQnd7Skpds9ZrMih7 PvlUTaBHnyZ74vm210UKPc ldNhW2tqwMCtzivnjSLrdp jxBBygvhJ3YDDcRYauqtyu VYHdHOczO3zaMaMcMGJgeN iqIDnrv6JqQSWgKHIqBxYr oCTkQGQrRgs8NJMnnHGnOU ZyPnBgF7blpppkYnTIVEBx l2dcS4uvpSGOhSWhR4ZtYQ hvbmUgTGluZTogNzEzLTc5 LR93AWb7MIEanl86 CPT Code(s) (test code r4tdmBIwVITdfHO7ItQeYB = 4688) Axr9vag7QqyQFejHKeKEpo bFOojpJryd07dVU5bH42KR 8rWAPdKbU6YUVwzxY6Syo2 NVTsYURynPJaY896a0mrp0 jfqxWryLK1sGteZTWxiajq KfU2FWdfEYDfbsmjCGs3ED emSDHmeGY2OSAmfXUfL5Qs SPGdQO5hdce8FEB8UEjsYW RqDhS6HTKujSHkINUsxRgn EOqsx085PTB7AdQhZIInus XouAapsV4rTzBwNDM9BBGb GEN0RFusJYxaLWYtvNJxgZ == CLINICAL HISTORY (test v3fljBVjMFOtfLK6UkNaAV code = 3356) Unw5xrz0AbpWEvrHVeEHsy pPSpqtEdcg32iZD2yD60HV 6qADMfLnG8UNTthwO7Ldo4 QGKiEPQvsBJrB673s4fah8 sbmnIzrYT9hUkwNFMzizzm AgR9POoaEBXmlusuNUk5NM pmXDNvpCQ9UJPhbQZkI4Er AETdPK2gteg2LFS0NBvmUA DlZmF2EYWhdUBxREChyVzn AAkgx888XGD3IuAgVXTssq JhfCnltC2vHdOpAPUXAXS0 qn3wbwFzy6SfwqXiGBnvhP 1nsrxlK5NtdNMniH== GROSS DESCRIPTION (test k2isgESqRZSunKLECVCpS2 code = [id number]) lufpBhZPRikRPvP7Qrvifz MFptJS1lDO6yaQvlpDEzhH EpTH5DBSRgDuBvBVLbiAIr hrXmFtYfQTGyxAFpcZO7JU GxEG4kgfhwUFkzEGchPYVc pqL3XFLwsFEwN9IsLYAmZW 9yzffaXHA5UGbkiC8xrhNZ AgamQm1jjRYkdHjzBrBeBe NoYXJzZXQwXGZuaWwgQXJp QOd7hI4WBqogG89wj1G2Mn e3OBXoBCBdY2WfHQ4rMQLe zDSwW92LZbzhPNG7DZXRTv dxUDWjHA1Ak2ccQIIjiSUz WGG2GEqpnDAbVUFaJCGxTS s1BOQwASjmzWWeFW7sxPlr CutfsNfmx6EpjSUvBGjuJH BvCINlXSadXKYdEQ6EAqHv OVQiBDCaZhljSDs4ATi3ZV 5IZuWcQKWgTWf9ZZF1PLCz ONd7JGpnAS7ECMKxWdy5Wq KdJBR2UYZ4CAJyCUQaImKg XGYgQXJpYWwgXFxmbCBcXG 7caFqdcPNjlbGEMnRSiL4p k9dtJCill5BdkFTgKHZkbu ANClxlcGljTmVzdERvYzEg DQpcbHRycGFyXGxpbjBccm luMCANClxsdHJjaFxjZjFc ZnMyMCBSZWNlaXZlZCBpbi Xmd7YmJSxohzRhFXHzaCNs IHdpdGggdGhlIHBhdGllbn JaZ7I9juTzDY9bKOXoUSJm O6RmNTWjR19cWCQhkL4kAZ KwRY1kIQd0QDFxTPUsFalk Y1EndPUyBjSusN2cp9nlWA HkJSV3RTDitbIbo9K8GTFt a2N2ATTvvmXigZMycJKuUZ QxvNJkXARhjRPabnviOX3n NDLxSOJ3Dh2bpUHjMYImid X2s6MqQNclHSUvYezvTALv RIjcbXEiLX6YK2maqYAoMG JYbwE8kwneVInQONKGTOIa QVNDUCljbVxwYXIgDQpccG EfVS0PTRQgHZpzecAiBG7W WTSnCRhgQAWvvKBMOQJ2XF 7pDXsvwVTosvvkABHmL1Az B0HxcnQflRIgGNDpuzLpo4 wyIHP5YGZcsULeeSMrXlMw VkciSBS5QWhkl6fnQEX2XB NsbXVsdDAgDQpcZnMxNntc QPXzY0LgO1FzxnF1HRq9 MICROSCOPIC DESCRIPTION z5ugkFEbPSTjqDR4EpUcUE (test code = 3371) Mow0lfo7WphIZpeHFlKEyg lJUphrDwaf91yJX2nH66UJ 8yYKBuExO4NANwtvP0Acj1 ABMfGVXaqWRnX445e4fhr6 bhegDosDM9mMomNPSlihtw OhI9GVevLBOwfsvkOCp8II jgQAHmvBW2NQCabQLwP6Zj GQJjSF8mzjw4FYR4TKpvYD AaFoQ1SHSxvGTuXAHygLep KNoxc741UTV7CiGtFFUdfg ZviLkvrO6eNlJnAVHOOHIu a4GaQSKlAKAadc9= SPECIAL STUDIES (test r5ydgRYoYBWxrLS6AeIkKP code = 3376) Hmq2xch7BazYSirAHaEGpg rNNsmbRjlj18iDT5bN99JI 9qECMhWqX6GLQairJ0Tsj6 GMFhXZGhmJBgR765FEDpKO CxbVnpmey1hP45QSYceE5x dGJsIDtccmVkMFxncmVlbj BzNlc3KOZ6wKlvBCQkytna WaF0FFqaPVVoygatSKy9SQ fgXFTiuGR3PNHxnKMsQ2Ui PDThDW2yfno8IGU0GTwjFB UlFjW7NHVsnYElIXEuqSry DTspn191YRY0CiEdNVKiwh OrjEfssT2jAqCyFsPvCoqd ZjEgVGhlIGludGVycHJldG J0cY4oDO2hDNVgnQCzE2Dz GZEhtfUbhDScSDD9nDMvvF AiRK1eNZbrnXLug1kmc0Uk L8qumXgqaOR8YJ5zGBDbKF PrMFaib5SvaC5tMqcaWCXi fEOpJTJxPBHJCVpEE96XCO QJLYVlYJsSF1HWSV2TL6IQ S5UCKX1JR80oSG4fSkOHSH KYMbRonDEmRBUyndDoK0Yj YWMuhyNXp236fc4qVFWrhI CmywKRoBHpuD3vPOnmBRwu OZovzBAsTPrsf6rvLOLpa0 s2bPTcZWNyjpGxc5esZLic cmUgZXZhbHVhdGVkIGFsb2 9bNEqakDbnkSzzZWEib9Zd lVsdj4VbMaBmHTjli0TqN4 9udHJvbCBzbGlkZXMgcnVu DQUby61ra2dnGDWrBoN4zK BqnEC1mYKajBNkg6UyjThh YSWbz1alNPWldi1donjbyK Qdr8CyiI2pvyafHZsxdGGx nbMiIUScp0m8eLRrRVPdHD BaOQrgfZz2GKAwe672jh3m wcK8xBQtRWC9AChjUCNsSY BhcmUgZXZhbHVhdGVkXHBh cvKrFGPkyeJWuS39dj4kqB H2i4GpWL6fv8EkaGV6ABIv uzwoJRdyzWCwqPihZgA1YJ XejAGeZo3ysJHgCFK7LXEh tKmhigPIxM0oVDZiLAj7ZD FjLqDlWtdmafLFGVPnX4If OFWxgjGxehftOLH7fK1sc8 j3DKojZl8kVNLpfctxb4nb kbJanQQgf3WnHNFfagCay0 BlZCBhbmQgaXRzIHBlcmZv lg8wetXyCQOoLCOvU7Ljrh pjjYbjpdQ8ZYFzXPRcjHVp cZqnWTWsKPz1WZforzBlz7 XiIgGlsrRgfENmbtYaWO5o YXYhgAStskAaRKK0IXUcDN KRGhGnDTAfl8DkET8eEYOd hZvoXTSigA6av4TzRNCgx4 4uIFRoZSBGREEgaGFzIGRl dGVybWluZWQgdGhhdCBzdW WzOBOcJGWtFM7qUWAyyqKv xMGbk3PfhEYzfvQij9Apaa PkVAAvWFT4HcWOcRJrgNQh qFXiobB9y4BmHZNcprUjoF sbuWNkdSKwoALxb2Dtsv4j WLRzm0grrAufFR3jzVHoJU ByZWdhcmRlZCBhcyBpbnZl x4HtC7X1sC4cEYznv6KcBf 4hVNBvn6HyuoIiGxENoQta RLnaHh9mRWMbkuhbpYHxH8 VydGlmaWVkIHVuZGVyIHRo ZSBDbGluaWNhbCBMYWJvcm A8g7O3QUzxqNLfzhFyLA09 HMRvVR3riRXpnXUrs2AdBR d5SORpZ1fQLV24BRcuIMKk cXVhbGlmaWVkIHRvIHBlcm Ugsf2wkEfjyIWon60saAN0 sIF3FKQskD6kV9BtVFjxMo 1oUIWicfhboTYoeHkxLa8b cGFyfQ== [id number] 17:26:26Surgical Pathology Report Case: [id number] Authorizing Provider: Carson Mosher MD Collected: 05/13/2022 10:18 AM Ordering Location: [address] Received: 05/15/2022 07:38 AM Service Pathologist: Joanne Rubio MD Specimen: Biopsy, Gastric, gastric ulcer bx STOMACH, ULCER, BIOPSY: - CHRONIC INACTIVE GASTRITIS WITH REACTIVE CHANGE - NO INTESTINAL METAPLASIA OR DYSPLASIA - NO DEFINITIVE HELICOBACTER PYLORI MICROORGANISM IDENTIFIED BY IMMUNOSTAINCC/pl Signing Pathologist Direct Phone Line: [phone] signed by Joanne Rubio MD on 05/17/2022 at 5:26 [id number] x1; [id number]. Biopsy, Gastric.Received in formalin labeled with the patient's name, medical record num julius and "gastric biopsy" are 4 worley soft tissue fragments each measuring 0.3 cm submitted in toto in A1.HANG Kim, TRISTAN (ASCP)cmPerformed The interpretation of this case included the use of immunohistochemistry or special stains.HELICOBACTER PYLORI MICROORGANISM--- NEGATIVEControl Slides Examined: In- house known positive controls were evaluated along with the test tissue. These control slides run alongside of the patients sample show appropriate staining. Internal positive and negative controls when available are evaluated Immunohistochemistry technical testing was performed at [facility], Pathology Laboratory where it was developed and its performance characteristics were determined. It has not been cleared or approved by the U.S. Food and Drug Administration. The FDAhas determined that such clearance or approval is not necessary. The test is used for clinical purposes. It should not be regarded as investigational or for research. This laboratory is certified underthe Clinical Laboratory Improvement Amendments of 1988 (CLIA-88) as qualified to perform high complexity clinical laboratory testing.[facility]OS[facility]ORUS 2022-05-17 05:17:30 Test Item Value Reference Range Interpretation Comments PHOSPHORUS (BEAKER) (test code = 1.5 mg/dL 2.3-4.7 LL 604) Hazardous Substances Scientist ID - HARSH MVITAMIN D, [id number] 04:50:55 Test Item Value Reference Range Interpretation Comments VITAMIN D 25-OH (BEAKER) (test 21.2 ng/mL 6.6-49.9 code = 2764) Effective 07/04/2017: Reference Range ChangeNew: 6.6-49.9 ng/mL Previous: 13.0- 47.8 ng/mLRecommendedVitamin D Target Range: 30.0-40.0 ng/mLOperator ID - HARSH M BASIC METABOLIC [id number] 04:42:29 Test Item Value Reference Range Interpretation Comments SODIUM (BEAKER) 136 meq/L 136-145 (test code = 381) POTASSIUM 4.5 meq/L 3.5-5.1 (BEAKER) (test code = 379) CHLORIDE (BEAKER) 112 meq/L 98-107 H (test code = 382) CO2 (BEAKER) 18 meq/L 22-29 L (test code = 355) BLOOD UREA 8 mg/dL 7-21 NITROGEN (BEAKER) (test code = 354) CREATININE 0.66 mg/dL 0.57-1.25 (BEAKER) (test code = 358) GLUCOSE RANDOM 91 mg/dL 70-105 (BEAKER) (test code = 652) CALCIUM (BEAKER) 7.9 mg/dL 8.4-10.2 L (test code = 697) EGFR (BEAKER) 107 Interpretati on of eGFR (test code = mL/min/1.73 values Stage De scription 1092) sq m Result G1 Maylin l or high >=90 G2 Mildly decreased 60-89 G3a Mildl y to moderately 45- 59 G3b Moderately to s everely 30-44 G4 Severl y decreased 15-29 G5 Kidney failure <15Reported eGF R is based on the CKD-EPI 2020 equation that d oes not use a race coefficientEsti mated GFR is not as accur ate as Creatinine Larisa jono in predicting glom erular filtration rate . Estimated GFR is not appl icable for dialysis patien ts Hazardous Substances Scientist ID - HARSH [id number] 04:41:33 Test Item Value Reference Range Interpretation Comments MAGNESIUM (BEAKER) (test code = 1.6 mg/dL 1.6-2.6 627) Hazardous Substances Scientist ID - HARSH [id number] 15:45:36 Test Item Value Reference Range Interpretation Comments PHOSPHORUS (BEAKER) (test code = 1.4 mg/dL 2.3-4.7 LL 604) Hazardous Substances Scientist ID - CHERIE BPTH, [id number] 15:40:39 Test Item Value Reference Range Interpretation Comments PARATHYROID HORMONE INTACT 187.3 pg/mL 8.5-72.5 H (BEAKER) (test code = 577) Hazardous Substances Scientist ID - CHERIE BOperator ID - [id number] 15:23:15 Test Item Value Reference Range Interpretation Comments PROLACTIN (BEAKER) (test code = 15.91 ng/mL 3.46-19.40 758) Hazardous Substances Scientist ID - CHERIE BBASIC METABOLIC [id number] 15:17:34 Test Item Value Reference Range Interpretation Comments SODIUM (BEAKER) 136 meq/L 136-145 (test code = 381) POTASSIUM 4.0 meq/L 3.5-5.1 (BEAKER) (test code = 379) CHLORIDE (BEAKER) 111 meq/L 98-107 H (test code = 382) CO2 (BEAKER) 18 meq/L 22-29 L (test code = 355) BLOOD UREA 7 mg/dL 7-21 NITROGEN (BEAKER) (test code = 354) CREATININE 0.71 mg/dL 0.57-1.25 (BEAKER) (test code = 358) GLUCOSE RANDOM 66 mg/dL 70-105 L (BEAKER) (test code = 652) CALCIUM (BEAKER) 7.6 mg/dL 8.4-10.2 L (test code = 697) EGFR (BEAKER) 105 Interpretatio n of eGFR (test code = mL/min/1.73 values Stage De scription 1092) sq m Result G1 Maylin l or high >=90 G2 Mildly decreased 60-89 G3a Mildl y to moderately 45-5 9 G3b Moderately to s everely 30-44 G4 Severl y decreased 15-29 G5 Kidney failure <15Reported eGF R is based on the CKD-EPI 2020 equation that d oes not use a race coefficientEsti mated GFR is not as accur ate as Creatinine Larisa de la cruz in predicting glom erular filtration rate . Estimated GFR is not appl icable for dialysis patien ts Hazardous Substances Scientist ID - CHERIE [id number] 15:11:52 Test Item Value Reference Range Interpretation Comments MAGNESIUM (BEAKER) (test code = 1.8 mg/dL 1.6-2.6 627) Hazardous Substances Scientist ID - CHERIE BCALCIUM, [id number] 14:51:01 Test Item Value Reference Range Interpretation Comments CALCIUM IONIZED (BEAKER) (test 1.12 mmol/L 1.12-1.27 code = 698) PH, BLOOD (BEAKER) (test code = 7.32 1810) CBC W/PLT COUNT & AUTO [id number] 14:45:58 Test Item Value Reference Range Interpretation Comments WHITE BLOOD CELL COUNT (BEAKER) 10.2 K/ L 3.5-10.5 (test code = 775) RED BLOOD CELL COUNT (BEAKER) 3.75 M/ L 4.63-6.08 L (test code = 761) HEMOGLOBIN (BEAKER) (test code = 8.7 GM/DL 13.7-17.5 L 410) HEMATOCRIT (BEAKER) (test code = 28.9 % 40.1-51.0 L 411) MEAN CORPUSCULAR VOLUME (BEAKER) 77.1 fL 79.0-92.2 L (test code = 753) MEAN CORPUSCULAR HEMOGLOBIN 23.2 pg 25.7-32.2 L (BEAKER) (test code = 751) MEAN CORPUSCULAR HEMOGLOBIN CONC 30.1 GM/DL 32.3-36.5 L (BEAKER) (test code = 752) RED CELL DISTRIBUTION WIDTH 16.5 % 11.6-14.4 H (BEAKER) (test code = 412) PLATELET COUNT (BEAKER) (test 282 K/CU MM 150-450 code = 756) MEAN PLATELET VOLUME (BEAKER) 9.7 fL 9.4-12.4 (test code = 754) NUCLEATED RED BLOOD CELLS 0 /100 WBC 0-0 (BEAKER) (test code = 413) NEUTROPHILS RELATIVE PERCENT 68 % (BEAKER) (test code = 429) LYMPHOCYTES RELATIVE PERCENT 22 % (BEAKER) (test code = 430) MONOCYTES RELATIVE PERCENT 6 % (BEAKER) (test code = 431) EOSINOPHILS RELATIVE PERCENT 3 % (BEAKER) (test code = 432) BASOPHILS RELATIVE PERCENT 0 % (BEAKER) (test code = 437) NEUTROPHILS ABSOLUTE COUNT 6.93 K/ L 1.78-5.38 H (BEAKER) (test code = 670) LYMPHOCYTES ABSOLUTE COUNT 2.22 K/ L 1.32-3.57 (BEAKER) (test code = 414) MONOCYTES ABSOLUTE COUNT (BEAKER) 0.60 K/ L 0.30-0.82 (test code = 415) EOSINOPHILS ABSOLUTE COUNT 0.28 K/ L 0.04-0.54 (BEAKER) (test code = 416) BASOPHILS ABSOLUTE COUNT (BEAKER) 0.03 K/ L 0.01-0.08 (test code = 417) IMMATURE GRANULOCYTES-RELATIVE 1 % 0-1 PERCENT (BEAKER) (test code = 2801) [id number] 12:56:32 Test Item Value Reference Range Interpretation Comments RPR SCREEN (BEAKER) (test code = Nonreactive Nonreactive 420) [id number] 05:36:37 Test Item Value Reference Range Interpretation Comments PHOSPHORUS (BEAKER) (test code = 1.8 mg/dL 2.3-4.7 L 604) Hazardous Substances Scientist ID - PIAYA LBASIC METABOLIC [id number] 05:36:36 Test Item Value Reference Range Interpretation Comments SODIUM (BEAKER) 139 meq/L 136-145 (test code = 381) POTASSIUM 4.0 meq/L 3.5-5.1 (BEAKER) (test code = 379) CHLORIDE (BEAKER) 112 meq/L 98-107 H (test code = 382) CO2 (BEAKER) 22 meq/L 22-29 (test code = 355) BLOOD UREA 10 mg/dL 7-21 NITROGEN (BEAKER) (test code = 354) CREATININE 0.76 mg/dL 0.57-1.25 (BEAKER) (test code = 358) GLUCOSE RANDOM 94 mg/dL 70-105 (BEAKER) (test code = 652) CALCIUM (BEAKER) 8.0 mg/dL 8.4-10.2 L (test code = 697) EGFR (BEAKER) 103 Interpretatio n of eGFR (test code = mL/min/1.73 values Stage De scription 1092) sq m Result G1 Maylin l or high >=90 G2 Mildly decreased 60-89 G3a Mildl y to moderately 45-5 9 G3b Moderately to s everely 30-44 G4 Severl y decreased 15-29 G5 Kidney failure <15Reported eGF R is based on the CKD-EPI 2020 equation that d oes not use a race coefficientEsti mated GFR is not as accur ate as Creatinine Larisa de la cruz in predicting glom erular filtration rate . Estimated GFR is not appl icable for dialysis patien ts Hazardous Substances Scientist ID - AMITADARLING [id number] 05:36:36 Test Item Value Reference Range Interpretation Comments MAGNESIUM (BEAKER) (test code = 1.8 mg/dL 1.6-2.6 627) Hazardous Substances Scientist ID Hallie ROGERIO LCBC W/PLT COUNT & AUTO [id number] 05:15:35 Test Item Value Reference Range Interpretation Comments WHITE BLOOD CELL COUNT (BEAKER) 10.5 K/ L 3.5-10.5 (test code = 775) RED BLOOD CELL COUNT (BEAKER) 4.10 M/ L 4.63-6.08 L (test code = 761) HEMOGLOBIN (BEAKER) (test code = 9.3 GM/DL 13.7-17.5 L 410) HEMATOCRIT (BEAKER) (test code = 30.4 % 40.1-51.0 L 411) MEAN CORPUSCULAR VOLUME (BEAKER) 74.1 fL 79.0-92.2 L (test code = 753) MEAN CORPUSCULAR HEMOGLOBIN 22.7 pg 25.7-32.2 L (BEAKER) (test code = 751) MEAN CORPUSCULAR HEMOGLOBIN CONC 30.6 GM/DL 32.3-36.5 L (BEAKER) (test code = 752) RED CELL DISTRIBUTION WIDTH 16.5 % 11.6-14.4 H (BEAKER) (test code = 412) PLATELET COUNT (BEAKER) (test 287 K/CU MM 150-450 code = 756) MEAN PLATELET VOLUME (BEAKER) 9.7 fL 9.4-12.4 (test code = 754) NUCLEATED RED BLOOD CELLS 0 /100 WBC 0-0 (BEAKER) (test code = 413) NEUTROPHILS RELATIVE PERCENT 72 % (BEAKER) (test code = 429) LYMPHOCYTES RELATIVE PERCENT 17 % (BEAKER) (test code = 430) MONOCYTES RELATIVE PERCENT 7 % (BEAKER) (test code = 431) EOSINOPHILS RELATIVE PERCENT 3 % (BEAKER) (test code = 432) BASOPHILS RELATIVE PERCENT 0 % (BEAKER) (test code = 437) NEUTROPHILS ABSOLUTE COUNT 7.59 K/ L 1.78-5.38 H (BEAKER) (test code = 670) LYMPHOCYTES ABSOLUTE COUNT 1.76 K/ L 1.32-3.57 (BEAKER) (test code = 414) MONOCYTES ABSOLUTE COUNT (BEAKER) 0.68 K/ L 0.30-0.82 (test code = 415) EOSINOPHILS ABSOLUTE COUNT 0.26 K/ L 0.04-0.54 (BEAKER) (test code = 416) BASOPHILS ABSOLUTE COUNT (BEAKER) 0.04 K/ L 0.01-0.08 (test code = 417) IMMATURE GRANULOCYTES-RELATIVE 1 % 0-1 PERCENT (BEAKER) (test code = 2801) CBC W/PLT COUNT & AUTO [id number] 17:55:49 Test Item Value Reference Range Interpretation Comments WHITE BLOOD CELL COUNT (BEAKER) 8.2 K/ L 3.5-10.5 (test code = 775) RED BLOOD CELL COUNT (BEAKER) 3.95 M/ L 4.63-6.08 L (test code = 761) HEMOGLOBIN (BEAKER) (test code = 9.0 GM/DL 13.7-17.5 L 410) HEMATOCRIT (BEAKER) (test code = 30.2 % 40.1-51.0 L 411) MEAN CORPUSCULAR VOLUME (BEAKER) 76.5 fL 79.0-92.2 L (test code = 753) MEAN CORPUSCULAR HEMOGLOBIN 22.8 pg 25.7-32.2 L (BEAKER) (test code = 751) MEAN CORPUSCULAR HEMOGLOBIN CONC 29.8 GM/DL 32.3-36.5 L (BEAKER) (test code = 752) RED CELL DISTRIBUTION WIDTH 16.5 % 11.6-14.4 H (BEAKER) (test code = 412) PLATELET COUNT (BEAKER) (test 257 K/CU MM 150-450 code = 756) MEAN PLATELET VOLUME (BEAKER) 9.5 fL 9.4-12.4 (test code = 754) NUCLEATED RED BLOOD CELLS 0 /100 WBC 0-0 (BEAKER) (test code = 413) NEUTROPHILS RELATIVE PERCENT 69 % (BEAKER) (test code = 429) LYMPHOCYTES RELATIVE PERCENT 20 % (BEAKER) (test code = 430) MONOCYTES RELATIVE PERCENT 6 % (BEAKER) (test code = 431) EOSINOPHILS RELATIVE PERCENT 2 % (BEAKER) (test code = 432) BASOPHILS RELATIVE PERCENT 1 % (BEAKER) (test code = 437) NEUTROPHILS ABSOLUTE COUNT 5.66 K/ L 1.78-5.38 H (BEAKER) (test code = 670) LYMPHOCYTES ABSOLUTE COUNT 1.65 K/ L 1.32-3.57 (BEAKER) (test code = 414) MONOCYTES ABSOLUTE COUNT (BEAKER) 0.51 K/ L 0.30-0.82 (test code = 415) EOSINOPHILS ABSOLUTE COUNT 0.19 K/ L 0.04-0.54 (BEAKER) (test code = 416) BASOPHILS ABSOLUTE COUNT (BEAKER) 0.05 K/ L 0.01-0.08 (test code = 417) IMMATURE GRANULOCYTES-RELATIVE 1 % 0-1 PERCENT (BEAKER) (test code = 2801) CT, [id number] 13:15:00Unlisted Reason for Exam - Click Yes and Enter Reason Below->YesUnlisted Reason for Exam->C/f malignancyIs this for enterography?->NoWill this procedure require oral contrast?->No [facility] : 1960 Sex: MFINAL REPORT TECHNIQUE: CT of the abdomen and pelvis WITH intravenous contrast and WITHOUT oral contrast. Dose modulation, iterative reconstruction, and/or weight-based adjustment of the mA/kV was utilized to reduce the radiation dose to as low as reasonably achievable. INDICATION: Unlisted Reason for ExamC/f malignancy. COMPARISON: CT 10/03/2021. FINDINGS: LOWER THORAX: Tiny right and small left pleural effusions. Incompletely included tree-in-bud opacities within the right middle lobe, likely infectious/inflammatory in etiology. Dependent atelectatic changes within the lower lobes.Pacer electrodes terminating within the right atrium right ventricle, completely included on this examination. HEPATOBILIARY: No focal hepatic lesions. Mild prominence of the gallbladder wall with small amount of pericholecystic fluid. No abnormal biliary ductal dilatation.SPLEEN: No splenomegaly.ADRENALS: No adrenal nodules. PANCREAS: No focal masses or ductal dilatation.LYMPH NODES: No lymphadenopat hy.KIDNEYS/URETERS: Left lower pole renal cortical scarring, as before. Bilateral renal cysts, one change in require no additional imaging follow-up. Bilateral nonobstructive intrarenal calculi. No ureteral or bladder stone.PELVIC ORGANS/BLADDER: Moderately distended urinary bladder. Enlarged prostategland. VESSELS: Moderate focal narrowing of the right common iliac artery. Mild focal narrowing of the proximal left common iliac artery. Aortoiliac atherosclerotic calcifications are present.PERITONEUM/RETROPERITONEUM: Small volume of abdominal and pelvic ascites. No free air. GI TRACT: No distentionor wall thickening. Moderate amount of stool within the ascending proximal to mid transverse colon. Prominent amount of fluid within nondilated small bowel. There is apparent thickening of the distal stomach although may in part be related to incomplete distention. BONES AND SOFT TISSUES: Unremarkable. IMPRESSION: 1. Tiny right and small left pleural effusions. Incompletely included focus of infectiou s/inflammatory bronchiolitis within the right middle lobe.2. Small amount of abdominal and pelvic ascites. There is mild prominence of the gallbladder wall with small amount of pericholecystic fluid which may be related to the presence of ascites. Correlation with laboratory values, as clinically indicated.3. Bilateral nonobstructive intrarenal calculi. Left lower pole renal cortical scarring, as before.4. Moderately distended urinary bladder. Enlarged prostate gland.5. Prominent amount of fluid within nondilated small bowel suggesting underlying hypersecretory state. No abnormal small bowel thickening. Moderate amount of stool is present within the ascending and proximal to mid transverse colon.6. Apparent thickening of the distal stomach which may reflect gastritis or alternatively may in part be related to incomplete distention. Correlation with endoscopy, as clinically indicated.7. Mild focal narrowing of the left common iliac artery and moderate focal narrowing of the right common iliac art chintan. Signed: Gwendolyn Anthony [facility] Verified Date/Time: 05/14/2022 13:15:06 VITAMIN [id number] 08:04:57 Test Item Value Reference Range Interpretation Comments VITAMIN B12 (BEAKER) (test code = 915 pg/mL 213-816 H 774) Hazardous Substances Scientist ID - ROGERIO [id number] 06:22:28 Test Item Value Reference Range Interpretation Comments MAGNESIUM (BEAKER) (test code = 1.4 mg/dL 1.6-2.6 L 627) Hazardous Substances Scientist ID - PIDARLING [id number] 06:22:28 Test Item Value Reference Range Interpretation Comments PHOSPHORUS (BEAKER) (test code = 1.9 mg/dL 2.3-4.7 L 604) Hazardous Substances Scientist ID - ROGERIO LBASIC METABOLIC [id number] 06:22:27 Test Item Value Reference Range Interpretation Comments SODIUM (BEAKER) 139 meq/L 136-145 (test code = 381) POTASSIUM 4.0 meq/L 3.5-5.1 (BEAKER) (test code = 379) CHLORIDE (BEAKER) 111 meq/L 98-107 H (test code = 382) CO2 (BEAKER) 22 meq/L 22-29 (test code = 355) BLOOD UREA 11 mg/dL 7-21 NITROGEN (BEAKER) (test code = 354) CREATININE 0.79 mg/dL 0.57-1.25 (BEAKER) (test code = 358) GLUCOSE RANDOM 87 mg/dL 70-105 (BEAKER) (test code = 652) CALCIUM (BEAKER) 8.4 mg/dL 8.4-10.2 (test code = 697) EGFR (BEAKER) 102 Interpretatio n of eGFR (test code = mL/min/1.73 values Stage De scription 1092) sq m Result G1 Maylin l or high >=90 G2 Mildly decreased 60-89 G3a Mildl y to moderately 45-5 9 G3b Moderately to s everely 30-44 G4 Severl y decreased 15-29 G5 Kidney failure <15Reported eGF R is based on the CKD-EPI 2020 equation that d oes not use a race coefficientEsti mated GFR is not as accur ate as Creatinine Larisa jono in predicting glom erular filtration rate . Estimated GFR is not appl icable for dialysis patien ts Hazardous Substances Scientist ID - PIAYA LCBC W/PLT COUNT & AUTO [id number] 06:18:19 Test Item Value Reference Range Interpretation Comments WHITE BLOOD CELL COUNT (BEAKER) 10.4 K/ L 3.5-10.5 (test code = 775) RED BLOOD CELL COUNT (BEAKER) 3.93 M/ L 4.63-6.08 L (test code = 761) HEMOGLOBIN (BEAKER) (test code = 9.0 GM/DL 13.7-17.5 L 410) HEMATOCRIT (BEAKER) (test code = 30.3 % 40.1-51.0 L 411) MEAN CORPUSCULAR VOLUME (BEAKER) 77.1 fL 79.0-92.2 L (test code = 753) MEAN CORPUSCULAR HEMOGLOBIN 22.9 pg 25.7-32.2 L (BEAKER) (test code = 751) MEAN CORPUSCULAR HEMOGLOBIN CONC 29.7 GM/DL 32.3-36.5 L (BEAKER) (test code = 752) RED CELL DISTRIBUTION WIDTH 16.5 % 11.6-14.4 H (BEAKER) (test code = 412) PLATELET COUNT (BEAKER) (test 253 K/CU MM 150-450 code = 756) MEAN PLATELET VOLUME (BEAKER) 9.9 fL 9.4-12.4 (test code = 754) NUCLEATED RED BLOOD CELLS 0 /100 WBC 0-0 (BEAKER) (test code = 413) NEUTROPHILS RELATIVE PERCENT 68 % (BEAKER) (test code = 429) LYMPHOCYTES RELATIVE PERCENT 20 % (BEAKER) (test code = 430) MONOCYTES RELATIVE PERCENT 8 % (BEAKER) (test code = 431) EOSINOPHILS RELATIVE PERCENT 3 % (BEAKER) (test code = 432) BASOPHILS RELATIVE PERCENT 0 % (BEAKER) (test code = 437) NEUTROPHILS ABSOLUTE COUNT 7.10 K/ L 1.78-5.38 H (BEAKER) (test code = 670) LYMPHOCYTES ABSOLUTE COUNT 2.05 K/ L 1.32-3.57 (BEAKER) (test code = 414) MONOCYTES ABSOLUTE COUNT (BEAKER) 0.83 K/ L 0.30-0.82 H (test code = 415) EOSINOPHILS ABSOLUTE COUNT 0.26 K/ L 0.04-0.54 (BEAKER) (test code = 416) BASOPHILS ABSOLUTE COUNT (BEAKER) 0.04 K/ L 0.01-0.08 (test code = 417) IMMATURE GRANULOCYTES-RELATIVE 2 % 0-1 H PERCENT (BEAKER) (test code = 2801) HIV-1 ANTIGEN WITH HIV-1/2 [id number] 05:54:48 Test Item Value Reference Range Interpretation Comments HIV-1 ANTIGEN WITH HIV 1\\T\\2 Nonreactive Nonreactive ANTIBODY (2) (BEAKER) (test code = 2586) Hazardous Substances Scientist ID - PIAYA KEVON, TIBC, % SAT. (WITHOUT FERRITIN)2022-05-14 05:31:23 Test Item Value Reference Range Interpretation Comments IRON (BEAKER) (test code = 547) 17.0 ug/dL 40.0-160.0 L TOTAL IRON BINDING CAPACITY 211 ug/dL 250-450 L (BEAKER) (test code = 769) IRON % SATURATION (2) (BEAKER) 8 % 20-55 L (test code = 2590) Hazardous Substances Scientist ID - PIAYA LCBC W/PLT COUNT & AUTO [id number] 20:55:39 Test Item Value Reference Range Interpretation Comments WHITE BLOOD CELL COUNT (BEAKER) 8.5 K/ L 3.5-10.5 (test code = 775) RED BLOOD CELL COUNT (BEAKER) 3.79 M/ L 4.63-6.08 L (test code = 761) HEMOGLOBIN (BEAKER) (test code = 8.6 GM/DL 13.7-17.5 L 410) HEMATOCRIT (BEAKER) (test code = 28.4 % 40.1-51.0 L 411) MEAN CORPUSCULAR VOLUME (BEAKER) 74.9 fL 79.0-92.2 L (test code = 753) MEAN CORPUSCULAR HEMOGLOBIN 22.7 pg 25.7-32.2 L (BEAKER) (test code = 751) MEAN CORPUSCULAR HEMOGLOBIN CONC 30.3 GM/DL 32.3-36.5 L (BEAKER) (test code = 752) RED CELL DISTRIBUTION WIDTH 16.4 % 11.6-14.4 H (BEAKER) (test code = 412) PLATELET COUNT (BEAKER) (test 244 K/CU MM 150-450 code = 756) MEAN PLATELET VOLUME (BEAKER) 10.2 fL 9.4-12.4 (test code = 754) NUCLEATED RED BLOOD CELLS 0 /100 WBC 0-0 (BEAKER) (test code = 413) NEUTROPHILS RELATIVE PERCENT 64 % (BEAKER) (test code = 429) LYMPHOCYTES RELATIVE PERCENT 23 % (BEAKER) (test code = 430) MONOCYTES RELATIVE PERCENT 8 % (BEAKER) (test code = 431) EOSINOPHILS RELATIVE PERCENT 3 % (BEAKER) (test code = 432) BASOPHILS RELATIVE PERCENT 0 % (BEAKER) (test code = 437) NEUTROPHILS ABSOLUTE COUNT 5.47 K/ L 1.78-5.38 H (BEAKER) (test code = 670) LYMPHOCYTES ABSOLUTE COUNT 1.95 K/ L 1.32-3.57 (BEAKER) (test code = 414) MONOCYTES ABSOLUTE COUNT (BEAKER) 0.67 K/ L 0.30-0.82 (test code = 415) EOSINOPHILS ABSOLUTE COUNT 0.21 K/ L 0.04-0.54 (BEAKER) (test code = 416) BASOPHILS ABSOLUTE COUNT (BEAKER) 0.03 K/ L 0.01-0.08 (test code = 417) IMMATURE GRANULOCYTES-RELATIVE 2 % 0-1 H PERCENT (BEAKER) (test code = 280) 2D Echo W/Doppler(CW/PW/Color)2022-05-13 09:11:15Ejection FractionSLEH ECHO HEARTLAB MKCKKEVIN [facility]PAFresno [facility] HospitalPT/[id number] 04:07:11 Test Item Value Reference Range Interpretation Comments PROTIME (BEAKER) (test 14.5 seconds 11.9-14.2 H code = 759) INR (BEAKER) (test 1.15 See_Comment [Automat ed code = 370) message] The sy stem which generated this result transmitted reference range : <=5.90. The reference range was not used to interpret this result as normal/abnormal . PARTIAL THROMBOPLASTIN 32.2 seconds 22.5-36.0 TIME (BEAKER) (test code = 760) RECOMMENDED COUMADIN/WARFARIN INR THERAPY RANGESSTANDARD DOSE: 2.0 - 3.0 Includes: PROPHYLAXIS for venous thrombosis, systemic embolization; TREATMENT for venous thrombosis and/or pulmonary embolus.HIGH RISK: Target INR is 2.5-3.5 for patients with mechanical heart valves.CBC W/PLT COUNT & AUTO [id number] 03:56:56 Test Item Value Reference Range Interpretation Comments WHITE BLOOD CELL COUNT (BEAKER) 7.1 K/ L 3.5-10.5 (test code = 775) RED BLOOD CELL COUNT (BEAKER) 3.69 M/ L 4.63-6.08 L (test code = 761) HEMOGLOBIN (BEAKER) (test code = 8.4 GM/DL 13.7-17.5 L 410) HEMATOCRIT (BEAKER) (test code = 28.0 % 40.1-51.0 L 411) MEAN CORPUSCULAR VOLUME (BEAKER) 75.9 fL 79.0-92.2 L (test code = 753) MEAN CORPUSCULAR HEMOGLOBIN 22.8 pg 25.7-32.2 L (BEAKER) (test code = 751) MEAN CORPUSCULAR HEMOGLOBIN CONC 30.0 GM/DL 32.3-36.5 L (BEAKER) (test code = 752) RED CELL DISTRIBUTION WIDTH 16.5 % 11.6-14.4 H (BEAKER) (test code = 412) PLATELET COUNT (BEAKER) (test 213 K/CU MM 150-450 code = 756) MEAN PLATELET VOLUME (BEAKER) 10.2 fL 9.4-12.4 (test code = 754) NUCLEATED RED BLOOD CELLS 0 /100 WBC 0-0 (BEAKER) (test code = 413) NEUTROPHILS RELATIVE PERCENT 56 % (BEAKER) (test code = 429) LYMPHOCYTES RELATIVE PERCENT 30 % (BEAKER) (test code = 430) MONOCYTES RELATIVE PERCENT 8 % (BEAKER) (test code = 431) EOSINOPHILS RELATIVE PERCENT 4 % (BEAKER) (test code = 432) BASOPHILS RELATIVE PERCENT 1 % (BEAKER) (test code = 437) NEUTROPHILS ABSOLUTE COUNT 3.98 K/ L 1.78-5.38 (BEAKER) (test code = 670) LYMPHOCYTES ABSOLUTE COUNT 2.15 K/ L 1.32-3.57 (BEAKER) (test code = 414) MONOCYTES ABSOLUTE COUNT (BEAKER) 0.57 K/ L 0.30-0.82 (test code = 415) EOSINOPHILS ABSOLUTE COUNT 0.25 K/ L 0.04-0.54 (BEAKER) (test code = 416) BASOPHILS ABSOLUTE COUNT (BEAKER) 0.04 K/ L 0.01-0.08 (test code = 417) IMMATURE GRANULOCYTES-RELATIVE 1 % 0-1 PERCENT (BEAKER) (test code = 2801) C-REACTIVE [id number] 15:38:49 Test Item Value Reference Range Interpretation Comments C-REACTIVE PROTEIN (BEAKER) (test 6.76 mg/dL 0.00-0.50 H code = 676) Hazardous Substances Scientist ID - BSLACTIC ACID, [id number] 11:15:35 Test Item Value Reference Range Interpretation Comments LACTATE BLOOD VENOUS 0.93 mmol/L 0.50-2.20 Specime n slightly (2) (BEAKER) (test hemolyzed code = 2200) Hazardous Substances Scientist ID - HARSH MCBC W/PLT COUNT & AUTO [id number] 11:03:13 Test Item Value Reference Range Interpretation Comments WHITE BLOOD CELL COUNT (BEAKER) 7.9 K/ L 3.5-10.5 (test code = 775) RED BLOOD CELL COUNT (BEAKER) 3.67 M/ L 4.63-6.08 L (test code = 761) HEMOGLOBIN (BEAKER) (test code = 8.4 GM/DL 13.7-17.5 L 410) HEMATOCRIT (BEAKER) (test code = 28.0 % 40.1-51.0 L 411) MEAN CORPUSCULAR VOLUME (BEAKER) 76.3 fL 79.0-92.2 L (test code = 753) MEAN CORPUSCULAR HEMOGLOBIN 22.9 pg 25.7-32.2 L (BEAKER) (test code = 751) MEAN CORPUSCULAR HEMOGLOBIN CONC 30.0 GM/DL 32.3-36.5 L (BEAKER) (test code = 752) RED CELL DISTRIBUTION WIDTH 16.5 % 11.6-14.4 H (BEAKER) (test code = 412) PLATELET COUNT (BEAKER) (test 215 K/CU MM 150-450 code = 756) MEAN PLATELET VOLUME (BEAKER) 10.6 fL 9.4-12.4 (test code = 754) NUCLEATED RED BLOOD CELLS 0 /100 WBC 0-0 (BEAKER) (test code = 413) NEUTROPHILS RELATIVE PERCENT 69 % (BEAKER) (test code = 429) LYMPHOCYTES RELATIVE PERCENT 18 % (BEAKER) (test code = 430) MONOCYTES RELATIVE PERCENT 10 % (BEAKER) (test code = 431) EOSINOPHILS RELATIVE PERCENT 2 % (BEAKER) (test code = 432) BASOPHILS RELATIVE PERCENT 1 % (BEAKER) (test code = 437) NEUTROPHILS ABSOLUTE COUNT 5.44 K/ L 1.78-5.38 H (BEAKER) (test code = 670) LYMPHOCYTES ABSOLUTE COUNT 1.41 K/ L 1.32-3.57 (BEAKER) (test code = 414) MONOCYTES ABSOLUTE COUNT (BEAKER) 0.76 K/ L 0.30-0.82 (test code = 415) EOSINOPHILS ABSOLUTE COUNT 0.19 K/ L 0.04-0.54 (BEAKER) (test code = 416) BASOPHILS ABSOLUTE COUNT (BEAKER) 0.04 K/ L 0.01-0.08 (test code = 417) IMMATURE GRANULOCYTES-RELATIVE 1 % 0-1 PERCENT (BEAKER) (test code = 2801) [id number] 03:30:48 Test Item Value Reference Range Interpretation Comments D-DIMER QUANTITATIVE (BEAKER) 2.03 MG/L FEU <0.50 H (test code = 671) Intended Use: The D-Dimer Assay can be used to aid in the diagnosis of Deep Vein Thrombosis (DVT) and Pulmonary Embolism Disease (PED).In patients with low pre- test probability, various studies concerning STA Liatest D-dimer test have reported that with a cutoff value of 0.50 MG/L FEU, the Negative Predictive Value (NPV) regarding the exclusion of thrombosis is within 95-100% range.APTT 2022-05-12 03:21:45 Test Item Value Reference Range Interpretation Comments PARTIAL THROMBOPLASTIN TIME 34.8 seconds 22.5-36.0 (BEAKER) (test code = 760) PROTHROMBIN [id number] 03:21:06 Test Item Value Reference Range Interpretation Comments PROTIME (BEAKER) 14.6 seconds 11.9-14.2 H (test code = 759) INR (BEAKER) (test 1.22 See_Comment [Automat ed message] code = 370) The system [employer] generated this result transmitted ref erence range: <=5.90. The reference range was not used to int erpret this result as normal/abnormal . RECOMMENDED COUMADIN/WARFARIN INR THERAPY RANGESSTANDARD DOSE: 2.0 - 3.0 Includes: PROPHYLAXIS for venous thrombosis, systemic embolization; TREATMENT for venous thrombosis and/or pulmonary embolus.HIGH RISK: Target INR is 2.5-3.5 for patients with mechanical heart valves.COMPREHENSIVE METABOLIC PANEL 2022-05-12 03:09:47 Test Item Value Reference Range Interpretation Comments TOTAL PROTEIN 5.1 gm/dL 6.0-8.3 L (BEAKER) (test code = 770) ALBUMIN (BEAKER) 2.4 g/dL 3.5-5.0 L (test code = 1145) ALKALINE 49 U/L 40-150 PHOSPHATASE (BEAKER) (test code = 346) BILIRUBIN TOTAL 0.1 mg/dL 0.2-1.2 L (BEAKER) (test code = 377) SODIUM (BEAKER) 143 meq/L 136-145 (test code = 381) POTASSIUM (BEAKER) 3.1 meq/L 3.5-5.1 L (test code = 379) CHLORIDE (BEAKER) 111 meq/L 98-107 H (test code = 382) CO2 (BEAKER) (test 24 meq/L 22-29 code = 355) BLOOD UREA 25 mg/dL 7-21 H NITROGEN (BEAKER) (test code = 354) CREATININE 1.10 mg/dL 0.57-1.25 (BEAKER) (test code = 358) GLUCOSE RANDOM 94 mg/dL 70-105 (BEAKER) (test code = 652) CALCIUM (BEAKER) 9.2 mg/dL 8.4-10.2 (test code = 697) AST (SGOT) 7 U/L 5-34 (BEAKER) (test code = 353) ALT (SGPT) 9 U/L 6-55 (BEAKER) (test code = 347) EGFR (BEAKER) 78 Interpretatio n of eGFR (test code = 1092) mL/min/1.[address] age Description sq m Result G1 Maylin l or high >=90 G2 Mildly decreased 60-89 G3a Mildl y to moderately 45-5 9 G3b Moderately to s everely 30-44 G4 Severl y decreased 15-29 G5 Kidney failure <15Reported eGF R is based on the CKD-EPI 2020 equation that d oes not use a race coefficientEsti mated GFR is not as accur ate as Creatinine Larisa jono in predicting glom erular filtration rate . Estimated GFR is not appl icable for dialysis patien ts Hazardous Substances Scientist ID - HARSH MB-TYPE NATRIURETIC FACTOR (BNP)2022-05-12 03:06:25 Test Item Value Reference Range Interpretation Comments B-TYPE NATRIURETIC PEPTIDE (BEAKER) 207 pg/mL 0-100 H (test code = 700) Hazardous Substances Scientist ID - ROGERIO LHIGH SENSITIVITY TROPONIN [id number] 03:06:06 Test Item Value Reference Range Interpretation Comments HIGH SENSITIVITY 7 pg/ml See_Comment [Automated message] TROPONIN I (test code = The system which [id number]) generated this result transmitted ref erence range: <=35. Th e reference range was not used to interpr et this result as normal/abnormal . Hazardous Substances Scientist ID - ROGERIO LThe WRESTLING COACH STAT High Sensitivity Troponin-I results should be used in conjunction with other diagnostic information such as ECG, clinical observations and information, and patient symptoms to aid in the diagnosis of NM.LACTIC ACID, [id number] 02:55:43 Test Item Value Reference Range Interpretation Comments LACTATE BLOOD VENOUS (2) (BEAKER) 0.71 mmol/L 0.50-2.20 (test code = 7742) Hazardous Substances Scientist CADENCE BEATTY LCBC W/PLT COUNT & AUTO [id number] 02:29:40 Test Item Value Reference Range Interpretation Comments WHITE BLOOD CELL COUNT (BEAKER) 7.9 K/ L 3.5-10.5 (test code = 775) RED BLOOD CELL COUNT (BEAKER) 3.95 M/ L 4.63-6.08 L (test code = 761) HEMOGLOBIN (BEAKER) (test code = 9.1 GM/DL 13.7-17.5 L 410) HEMATOCRIT (BEAKER) (test code = 29.8 % 40.1-51.0 L 411) MEAN CORPUSCULAR VOLUME (BEAKER) 75.4 fL 79.0-92.2 L (test code = 753) MEAN CORPUSCULAR HEMOGLOBIN 23.0 pg 25.7-32.2 L (BEAKER) (test code = 751) MEAN CORPUSCULAR HEMOGLOBIN CONC 30.5 GM/DL 32.3-36.5 L (BEAKER) (test code = 752) RED CELL DISTRIBUTION WIDTH 16.4 % 11.6-14.4 H (BEAKER) (test code = 412) PLATELET COUNT (BEAKER) (test 227 K/CU MM 150-450 code = 756) MEAN PLATELET VOLUME (BEAKER) 10.4 fL 9.4-12.4 (test code = 754) NUCLEATED RED BLOOD CELLS 0 /100 WBC 0-0 (BEAKER) (test code = 413) NEUTROPHILS RELATIVE PERCENT 62 % (BEAKER) (test code = 429) LYMPHOCYTES RELATIVE PERCENT 25 % (BEAKER) (test code = 430) MONOCYTES RELATIVE PERCENT 10 % (BEAKER) (test code = 431) EOSINOPHILS RELATIVE PERCENT 1 % (BEAKER) (test code = 432) BASOPHILS RELATIVE PERCENT 0 % (BEAKER) (test code = 437) NEUTROPHILS ABSOLUTE COUNT 4.88 K/ L 1.78-5.38 (BEAKER) (test code = 670) LYMPHOCYTES ABSOLUTE COUNT 1.97 K/ L 1.32-3.57 (BEAKER) (test code = 414) MONOCYTES ABSOLUTE COUNT (BEAKER) 0.81 K/ L 0.30-0.82 (test code = 415) EOSINOPHILS ABSOLUTE COUNT 0.11 K/ L 0.04-0.54 (BEAKER) (test code = 416) BASOPHILS ABSOLUTE COUNT (BEAKER) 0.03 K/ L 0.01-0.08 (test code = 417) IMMATURE GRANULOCYTES-RELATIVE 1 % 0-1 PERCENT (BEAKER) (test code = 2801) RAD, CHEST, 1 VIEW, NON [id number] 01:40:00Reason for exam:->sobShould this be performed at the bedside?->Yes [facility] 1960 Sex: MFINAL REPORT History: sob. Comparison: 10/02/2021 Findings: A single view of the chestis submitted. The cardiac silhouette is within normal limits for size. There is atherosclerotic calcification of the tortuous aorta. A left subclavian, dual-lead ICD is in place. There is no focal consolidation, pneumothorax, large pleural effusion or evidence of overt pulmonary edema. Curvilinear opacity in the right lower lung is stable from previous and suggests scarring. There is no acute bony abnormality. Impression: No acute abnormality. Signed: Willy Coates MDReport Verified Date/Time: 05/12/2022 01:40:05 TISSUE EXAM 2021-10-11 08:38:26Surgical Pathology Report Case: [id number] Authorizing Provider: Keiry Bello MD Collected: 10/04/2021 08:30 AM Ordering Location: [address] Received: 10/04/2021 12:15 PM Service P athologist: Tres Burch MD Specimen: Gastric, GASTRIC ULCERS BIOPSY STOMACH, ULCERS, BIOPSY:- CHRONIC ACTIVE GASTRITIS WITH EXTENSIVE ULCERATION AND GRANULATION TISSUE - NO DYSPLASIA OR CARCINOMA PRESENT - NEGATIVE FOR HELICOBACTER, HSV or CMV (IMMUNOSTAINS) Signing Pathologist Direct Phone Line: [phone] signed by Tres Burch MD on 10/11/2021 at 8:38 [id number], [id number] x 4Iron deficiency anemiaGastricReceived in formalin labeled the patient's name, accession number and "ulcer" are multiple worley soft tissue fragments measuring up to 0.3 cm in greatest dimension which are filtered and submitted in toto in A1.TRISTAN Carcamo, HT (ASCP)The stomach biopsy has significant reactive atypia, ulceration and granulation tissue. To rule out possible H. pylori, CMV andHSV organisms, immunostains for these organisms were performed [...] evaluated Immunohistochemistry technical testing was performed at [facility], Pathology Laboratory where it was [...] under the Clinical Laboratory Improvement Amendments of 1988(CLIA-88) as qualified to perform high complexity clinical laboratory testing.[facility], Department of Pathology, [address] [place] [address], [place] [address], [facility], [facility] of [facility], [address] [place] [address], [address] [facility], Department of Pathology, [address] [place] [address], LPKHJ, [id number] 06:59:00 Test Item Value Reference Range Interpretation Comments ABO Grouping (test code = 2588) A Rh Factor (test code = 2589) POS [facility] [id number] 04:30:23 Test Item Value Reference Range Interpretation Comments MAGNESIUM (BEAKER) (test code = 1.8 mg/dL 1.6-2.6 627) Hazardous Substances Scientist ID - HARSH [id number] 04:30:23 Test Item Value Reference Range Interpretation Comments PHOSPHORUS (BEAKER) (test code = 3.2 mg/dL 2.3-4.7 604) Hazardous Substances Scientist ID - HARSH MCOMPREHENSIVE METABOLIC [id number] 04:30:22 Test Item Value Reference Range Interpretation [...] S NOT APPLICABLE FOR DIALYSIS PATIEN TS. Hazardous Substances Scientist ID - HARSH MCBC W/PLT COUNT & AUTO [id number] 04:06:08 Test Item Value Reference Range Interpretation [...] PERCENT (BEAKER) (test code = 2801) CT, [id number] 18:57:00Unlisted Reason for Exam - Click Yes and Enter Reason Below->YesUnlisted Reason for Exam->abd pain, N/V, OSH CT with gastric thickeningIs this for enterography?->NoWill this procedure require o ral contrast?->No [facility] 1960 Sex: MFINAL [...] or follow-up with endoscopy. Signed: Delio Quintana MDRheidimoberly regional medical center Verified Date/Time: 10/03/2021 18:57:32 Reading Location: [address] Body Reading Room Peripheral Blood Smear - Path [id number] 14:14:07 Test Item Value Reference Range Interpretation Comments RBC Morphology See comment Hypochromic, (test code = normocytic anem ia 5822) with moderate anisocytosis an d mild poikilocytosis, including rare to occasional elliptocytes an d acanthocytes. R are schistocytes identified. Minimal polychromasia. WBC Morphology See comment Normal in num julius. (test code = No significant 7444) deviations from normal WBCs subtype proportions. Lymphocytes wit h few reactive an d rare atypical forms. No immat ure WBCs identified . Platelet No ClumpingNo Adequate in nu mber Morphology (test SatellitosisSee with nor mal code = 2848) comment granular morphology. Occasional larg e and rare giant forms identifie d. Pathologist: Jaden Mayen MD (test code = (electronic 1959) signature) [facility] - PATHOLOGIST [id number] 14:14:07 Test Item Value Reference Range Interpretation [...] MORPHOLOGY No Satellitosis (BEAKER) (test code = 372677) PLT MORPHOLOGY See comment Adequate in n umber (BEAKER) (test with normal code = 530166) granular morphology. Occasional larg e and rare giant forms identifie d. [facility]-PATHOLOGIST- Jaden Mayen MD 6112 (BEAKER) (electronic (test code = signature) 5500) 2D Echo W/Doppler(CW/PW/Color)2021-10-03 11:14:47Ejection FractionSLEH ECHO HEARTLAB MKCKESSON CPACSCHI [facility] HospitalHemoglobin [id number] 09:56:08 Test Item Value Reference Range Interpretation Comments Hemoglobin A1C (test 5.8 % See_Comment H [Autom ated code = 4549-2) message] The system which generated this result transmitted reference range : <=5.6%. The reference range was not used to interpret this result as normal/abnormal . PETRA (test code = PETRA) "The A1c is measured using a NGSP-certified method. HbA1c value equal to or greater than 6.5% as the diagnosis cutoff for diabetes. An HbA1c value of 5.7-6.4% indicates increased risk for diabetes (prediabetes)."O perator ID - ADM Lab Interpretation Abnormal (test code = 99115-8) [facility] HospitalHEMOGLOBIN [id number] 09:56:08 Test Item Value Reference Range Interpretation [...] 5.7- 6.4% indicates increased risk for diabetes (prediabetes)."Hazardous Substances Scientist ID - ADM SARS-CoV2/RT-PCR (Asymptomatic ONLY)2021-10-03 09:18:48 Test Item Value Reference Range Interpretation Comments SARS-COV2/RT-PCR Negative Not Detected, (test code = Negative, See 38092-0) external report for linked test SARS-COV-2 [facility] PERFORMING LAB (test code = 90666-3) PETRA (test code = Negative result for this PETRA) test determines that SARS-CoV-2 RNA was not [...] be considered in cases of suspected false negatives. The limit of detection for this assay is 800 copies/mL. This SARS CoV-2 test is a real-time RT-PCR test intended for the qualitative detection of nucleic acid from SARS-CoV-2 in a nasopharyngeal swab specimen collected from individuals suspected of COVID-19 by their healthcare provider. This test has not been Food and Drug [...] is revoked under Section 564(g) of the Act. Fact Sheet for Healthcare Providers:https://www.[employer]/sites/default/f roc/product/documents/F act_Sheet_HC_Providers_L vhy_OISC-FkN-6.pdf Fact Sheet for Healthcare Patients:https://www.[employer]/sites/default/fi les/product/documents/Fa ct_Sheet_Patients_Lyra_S ARS-CoV-2.pdf Performing Laboratory:[facility], [place] [id number] [place], [place] [address]ARS-COV2/RT-PCR ([facility])2021-10-03 09:18:48 Test Item Value Reference Range Interpretation Comments SARS-COV2/RT-PCR (test Negative Not Detected, Negative, code = 9317425) See external report for linked test SARS-COV-[address] [facility] (test code = 6235012) Negative result for this test determines that [...] of the Act.Fact Sheet for Healthcare Prov iders:https://www.[employer]/sites/default/files/product/documents/Fact_Sheet_HC _Cchwimaef_Ckqt_GYQI-OkO-7.pdfFact Sheet for Healthcare Patients:https://www.[employer]/sites/default/files/product/docume nts/Ryim_Dysfv_Fvrteine_Ohxq_SZHA-WxN-9.pdfPerforming Laboratory:[facility], [place] [address]Apmhv [id number] 05:18:14 Test Item Value Reference Range Interpretation Comments Triglycerides (test 78 mg/dL code = 2571-8) Cholesterol (test code 89 mg/dL = 3-3) HDL (test code = 26 mg/dL 2085-05) LDL Calculated (test 47 mg/dL code = 26692-9) PETRA (test code = PETRA) Triglyceride Reference Range: Low Risk <150 Borderline 150-199 High Risk 200-499 Very High Risk >=500 Cholesterol Reference Range: Low Risk <200 Borderline 200-239 High Risk >240 HDL Cholesterol Reference Range: Low Risk >=60 High Risk <40 LDL Cholesterol Reference Range: Optimal <100 Near Optimal 100-129 Borderline 130-159 High 160-189 Very High >=190 Hazardous Substances Scientist ID - DB [facility] 05:18:14 Test Item Value Reference Range Interpretation Comments PHOSPHORUS (BEAKER) (test code = 3.5 mg/dL 2.3-4.7 604) Hazardous Substances Scientist ID - DBLIPID [id number] 05:18:14 Test Item Value Reference Range Interpretation [...] Borderline 130-159 High 160-189 Very High >=190 Hazardous Substances Scientist ID - DBCOMPREHENSIVE METABOLIC [id number] 05:18:13 Test Item Value Reference Range Interpretation [...] S NOT APPLICABLE FOR DIALYSIS PATIEN TS. Hazardous Substances Scientist ID - [id number] 05:18:13 Test Item Value Reference Range Interpretation Comments MAGNESIUM (BEAKER) (test code = 1.9 mg/dL 1.6-2.6 627) Hazardous Substances Scientist ID - DBCBC W/PLT COUNT & AUTO [id number] 04:51:38 Test Item Value Reference Range Interpretation [...] 0-1 PERCENT (BEAKER) (test code = 2801) Urinalysis with Microscopic If [id number] 01:04:25 Test Item Value Reference Range Interpretation Comments Color, UA (test code = Light Yellow 5778-6) Clarity, UA (test code = Clear 5767-9) Specific [place], UA 1.014 1.001-1.035 (test code = 5811-5) pH, UA (test code = 6.5 5.0-8.0 5803-2) Protein, UA (test code = Negative Negative 44836-7) Glucose, UA (test code = Negative Negative 365) Ketones, UA (test code = Negative Negative 2514-8) Bilirubin, UA (test code Negative Negative = 84680-3) Blood, UA (test code = Negative Negative 73796-4) Nitrite, UA (test code = Negative Negative 5802-4) Leukocytes, UA (test Negative Negative code = 5799-2) Urobilinogen, UA (test 0.2 mg/dL 0.2-1.0 code = 36612-9) Specimen Source (test code = 2795) PETRA (test code = PETRA) Hazardous Substances Scientist ID - [auto] [facility] MICROSCOPIC IF [id number] 01:04:25 Test Item Value Reference Range Interpretation [...] = 463) SOURCE(BEAKER) (test code = 2795) Hazardous Substances Scientist ID - [auto]T4, [id number] 18:31:54 Test Item Value Reference Range Interpretation Comments Free T4 (test code = 3024-7) 0.77 ng/dL 0.70-1.48 PETRA (test code = PETRA) Hazardous Substances Scientist ID - DB Lab Interpretation (test Normal code = 65875-7) [facility] [id number] 18:31:54 Test Item Value Reference Range Interpretation Comments FREE T4 (BEAKER) (test code = 655) 0.77 ng/dL 0.70-1.48 Hazardous Substances Scientist ID - DBIRON, TIBC, % SAT. (WITHOUT FERRITIN)2021-10-02 18:16:14 Test Item Value Reference Range Interpretation Comments IRON (BEAKER) (test code = 547) 25.0 ug/dL 40.0-160.0 L TOTAL IRON BINDING CAPACITY 443 ug/dL 250-450 (BEAKER) (test code = 769) IRON % SATURATION (2) (BEAKER) 6 % 20-55 L (test code = 2590) Hazardous Substances Scientist ID - BENI GOperator ID - DBRAD, ABDOMEN/KUB, 1 VIEW [id number] 18:02:00Reason for exam:->acute [facility] 1960 Sex: MFINAL [...] renal calculi.Nonobstructive bowel gas pattern. Signed: Jason Silva MDReport Verified Date/Time: 10/02/2021 18:02:37 Reading Location: [address] Reading Room [id number] 17:37:07 Test Item Value Reference Range Interpretation Comments Lipase (test code = 20 U/L 3040-3) PETRA (test code = PETRA) Hazardous Substances Scientist ID - BENI G Lab Interpretation (test Normal code = 66265-0) [facility] 17:37:07 Test Item Value Reference Range Interpretation Comments LIPASE (BEAKER) (test code = 749) 20 U/L Hazardous Substances Scientist ID - BENI GTSH/Free T4 If [id number] 17:05:20 Test Item Value Reference Range Interpretation Comments TSH (test code = 6.668 See_Comment H [Automated 76405-9) message] The system which generated this result transmit thanh reference range : 0.350 - 4.940 uIU/mL. The reference range was not used to interpret this result as normal/abnormal . PETRA (test code = PETRA) Hazardous Substances Scientist ID - BENI G Lab Interpretation Abnormal (test code = 18179-5) [facility]FREE T4 IF [id number] 17:05:20 Test Item Value Reference Range Interpretation Comments THYROID STIMULATING HORMONE 6.668 uIU/mL 0.350-4.940 H (BEAKER) (test code = 772) Hazardous Substances Scientist ID - BENI GVitamin B12 and Thsyjo2411-35-36 16:52:36 Test Item Value Reference Range Interpretation Comments Vitamin B12 (test 515 pg/mL 213-816 code = 2132-9) Folate (test code = 8.50 ng/mL See_Comment [Automa thanh 2284-8) message] The system which generated this result transmit thanh reference range : >=7.00. The reference range was not used to interpret this result as normal/abnormal . PETRA (test code = PETRA) Hazardous Substances Scientist ID - BENI G Lab Interpretation Normal (test code = 03844-1) [facility]VIT[facility] B12 AND [id number] 16:52:36 Test Item Value Reference Range Interpretation Comments VITAMIN B12 (BEAKER) 515 pg/mL 213-816 (test code = 774) FOLATE (BEAKER) 8.50 ng/mL See_Comment [Automated message] (test code = 362) The system which generated this result transmitted ref erence range: >=7.00. The reference range was not used to interpr et this result as normal/abnormal . Hazardous Substances Scientist ID - BENI SMzakjsxq6769-98-56 16:52:35 Test Item Value Reference Range Interpretation Comments Ferritin (test code = 5.19 ng/mL 5.00-275.00 2276-4) PETRA (test code = PETRA) Hazardous Substances Scientist ID - BENI G Lab Interpretation (test Normal code = 34545-2) [facility]FERRITIN2022-[facility]-09 16:52:35 Test Item Value Reference Range Interpretation Comments FERRITIN (BEAKER) (test code = 5.19 ng/mL 5.00-275.00 361) Hazardous Substances Scientist ID - BENI GB-TYPE NATRIURETIC FACTOR (BNP)2021-10-02 16:22:12 Test Item Value Reference Range Interpretation Comments B-TYPE NATRIURETIC PEPTIDE (BEAKER) 72 pg/mL 0-100 (test code = 700) Hazardous Substances Scientist ID - BENI GHIGH SENSITIVITY TROPONIN [id number] 16:21:50 Test Item Value Reference Range Interpretation Comments HIGH SENSITIVITY 8 pg/ml See_Comment [Automated message] TROPONIN I (test code = The system which [id number]) generated this result transmitted ref erence range: <=35. Th e reference range was not used to interpr et this result as normal/abnormal . Hazardous Substances Scientist ID - BENI GThe WRESTLING COACH STAT High Sensitivity Troponin-I results should be used in conjunction with other diagnostic information such as ECG, clinical observations and information, and patient symptoms to aid in the diagnosis of NM.COMPREHENSIVE METABOLIC [id number] 16:19:32 Test Item Value Reference Range Interpretation [...] S NOT APPLICABLE FOR DIALYSIS PATIEN TS. Hazardous Substances Scientist ID - BENI [id number] 16:19:32 Test Item Value Reference Range Interpretation Comments MAGNESIUM (BEAKER) (test code = 2.0 mg/dL 1.6-2.6 627) Hazardous Substances Scientist ID - BENI [id number] 16:19:32 Test Item Value Reference Range Interpretation Comments PHOSPHORUS (BEAKER) (test code = 3.4 mg/dL 2.3-4.7 604) Hazardous Substances Scientist ID - BENI GLACTIC ACID, [id number] 16:12:09 Test Item Value Reference Range Interpretation Comments LACTATE BLOOD VENOUS (2) (BEAKER) 0.50 mmol/L 0.50-2.20 (test code = 2872) Hazardous Substances Scientist ID - BENI GPROTHROMBIN TIME/[id number] 15:53:06 Test Item Value Reference Range Interpretation Comments PROTIME (BEAKER) 14.4 seconds 11.9-14.2 H (test code = 759) INR (BEAKER) (test 1.14 See_Comment [Automat ed message] code = 370) The system [employer] generated this result transmitted ref erence range: <=5.90. The reference range was not used to int erpret this result as normal/abnormal . RECOMMENDED COUMADIN/WARFARIN INR THERAPY RANGESSTANDARD DOSE: 2.0 - 3.0 Includes: PROPHYLAXIS for venous thrombosis, systemic embolization; TREATMENT for venous thrombosis and/or pulmonary embolus.HIGH RISK: Target INR is 2.5-3.5 for patients with mechanical heart valves.Reticulocyte [id number] 15:35:19 Test Item Value Reference Range Interpretation Comments % Retic (test code = 1.4 % 0.5-1.8 76035-2) PETRA (test code = PETRA) Hazardous Substances Scientist ID - [id number] Lab Interpretation (test Normal code = 11785-5) [facility] HospitalRETICULOCYTE [id number] 15:35:19 Test Item Value Reference Range Interpretation Comments RETICULOCYTE COUNT PCT (BEAKER) (test 1.4 % 0.5-1.8 code = 575) Hazardous Substances Scientist ID - [id number] W/PLT COUNT & AUTO [id number] 15:35:19 Test Item Value Reference Range Interpretation [...] = 2801) RAD, CHEST, 1 VIEW, NON [id number] 15:26:00Reason for exam:->aicd shockShould this be performed at the bedside?->Yes [facility] : 1960 Sex: MFINAL REPORT RAD, CHEST, 1 VIEW, NON DEPT TECHNIQUE: Frontal view(s) of the chest. INDICATION: AICD shock COMPARISON: 05/08/2016 FINDINGS/IMPRESSION: Lines/Tubes: A dual-lead pacemaker/AICD Lungs/pleura: The left lateral costophrenic sulcus is excluded from kxiwo-lr-uzth. A linear opacity in the lateral right lower lobe is probably a scar. The lungs are otherwise clear and well inflated. No visible pleural effusion. No pneumothorax. Heart and Mediastinum: Unremarkable. Soft Tissues and Bones: Unremarkable. Signed: Padmini Gutierrez Verified Date/Time: 10/02/2021 15:26:50 Reading Location: [address] Consult Reading [facility] METABOLIC [id number] 12:34:00 Test Item Value Reference Range Interpretation [...] RECOLLECTION NEEDED ON 12/19/18 AT 1151 BY Z.LAB.EH1YBPZYF: HEMOLYZEDNOTIFIED PATIENT CARE STAFF:NPSYVJLDLIVIRKGAC6214-04-85 12:34:00 Test Item Value Reference Range Interpretation Comments MAGNESIUM (test code = MAG) 1.8 MG/DL 1.6-2.3 N RECOLLECTION NEEDED ON 12/19/18 AT 1151 BY Z.LAB.OJ8WAEWIB: HEMOLYZEDNOTIFIED PATIENT CARE STAFF:DAVIDTPROTHROMBIN [id number] 12:10:00 Test Item Value Reference Range Interpretation [...] myocar dial infarction. 2.0 - 3.0 3. Heel Gummer al prosthesis hear t valves, recurre nt systemic emboli sm. 3.0 - 4.5 PTT [id number] 12:10:00 Test Item Value Reference Range Interpretation Comments PTT ACTIVATED (test code = APTT) 25.7 SECONDS 22.0-33.0 N CBC W/AUTO [id number] 11:41:00 Test Item Value Reference Range Interpretation [...]
[2022-07-17] MEDS ORDERED: propofoL 1,000 MG/100 ML VIAL IV ONE ×2 (07:54→13:55)
[2022-07-17 07:58] LABS: Blood Gas Oxyhemoglobin 97.1 % (94-97); Blood O2 Saturation 97.7 % (92-98.5)
[2022-07-17 08:13] LABS: Protime INR 1.09
[2022-07-17 08:23] LABS: SARS-CoV-2 Antigen Rapid Res Positive (Negative)
--- NOTE | 2022-07-17 08:44 | RAD REPORT ---
EXAM DESCRIPTION: RAD - Chest Single View - 07/17/2022 8:36 am CLINICAL HISTORY: CHEST PAIN Chest pain. COMPARISON: Chest Single View dated 05/11/2022; Chest Single View dated 01/19/2022; Chest Single View dated 01/16/2022; Chest Single View dated 10/02/2021 FINDINGS: Portable technique limits examination quality. Tip of the endotracheal tube is at the level of the aortic arch. Enteric tube descends into the upper abdomen. The lungs appear grossly clear. The heart is upper limit normal in size with a multi lead p acer/defibrillator device.
[2022-07-17 08:49] LABS: Absolute Lymphocytes (CBC) 2.2 K/uL (0.7-4.9); Hematocrit 27.9 % (39.6-49.0); Lymphocytes % 16.9 % (15.3-44.8); MCV 73.6 fL (80-100); MPV 7.5 fL (7.6-11.3); RBC Red Blood Cell Count 3.79 M/uL (4.33-5.43)
[2022-07-17 09:06] LABS: Potassium 3.6 mmol/L (3.5-5.1); Troponin High Sensitivity 11.2 pg/mL (<58.9)
--- NOTE | 2022-07-17 09:58 | ER ---
Nurse's Notes [facility] Name: Alexander Bow[facility] Age: 61 yrs Sex: Male : 1960 Arrival Date: 07/17/2022 Time: 07:50 Bed 3 Private MD: Diagnosis: Altered mental status, unspecified;Chest pain, unspecified;Anemia, unspecified Presentation: 07/17 07:42 Chief complaint: EMS states: Pt called 911 c/o chest pain. Pt reported to EMS personnel ss that prior to their arrival that he self administered Nitro SL x 7. Pt was recently flown to [facility] [place] and had a cardiac stent placed. When loading patient into ambulance, he became unresponsive. Bagged by BVM and oral airway placed. Unable to obtain IV access. BP 154/106, pulse ranging from 84-106 bpm. Coronavirus screen: Client denies travel out of the [place] in the last 14 days. Ebola Screen: Patient denies exposure to infectious person. Patient denies travel to an Ebola-affected area in the 21 days before illness onset. Initial Sepsis Screen: Does the patient have a suspected source of infection? No. Patient's initial sepsis screen is negative. Risk Assessment: Do you want to hurt yourself or someone else? Unable to obtain. Onset of symptoms was July 17, 2022. 07:42 Method Of Arrival: EMS: [facility] 07:42 Acuity: JACEY 1 ss Historical: - Allergies: 08:17 Aspirin; ss 08:17 Codeine; ss 08:17 Ibuprofen; ss 08:17 Levofloxacin; ss 08:17 mycins; ss 08:17 PENICILLINS; ss 08:17 Sulfa (Sulfonamide Antibiotics); ss 08:17 Tylenol-Codeine #3; ss - PMHx: 08:17 Anxiety; COPD; Hypertension; Myocardial infarction; Pneumonia; Pneumothorax; ss - PSHx: 08:17 18" bowel removal; Stented artery; ss - History obtained from: EMS. Assessment: 07:50 General: Behavior is unresponsive. Pain: Unable to use pain scale. Patient is ss unresponsive. Neuro: Level of Consciousness is unresponsive. Cardiovascular: Capillary refill is > 3 seconds Rhythm is sinus rhythm with multifocal PVCs. Respiratory: Respiratory pattern is tachypnea Ventilations assisted via BVM at this time, preparing for intubation per Dr. Lui Breath sounds are clear bilaterally. 07:50 GI: Abdomen is flat. : No signs and/or symptoms were reported regarding the ss genitourinary system. EENT: No signs and/or symptoms were reported regarding the EENT system. Derm: Skin is intact, Skin is dry, Skin is pale, Skin temperature is cool. 07:50 Respiratory: Ventilator assessment: ET Tube: 7.5 23 cm at teeth FiO2: 100%. HOB > 30 ss degrees. 07:50 Pain: Unable to use pain scale. Patient is unresponsive. aa5 08:30 General: Appears in no apparent distress. Pain: Unable to use pain scale. Patient is mb9 intubated. 08:30 Neuro: Neuro: Level of Consciousness is intubated and sedated . Cardiovascular: Heart mb9 tones S1 S2 present Rhythm is sinus rhythm. Respiratory: Airway via oral intubation Respiratory effort is assisted Respiratory pattern is tachypnea. GI: Oral gastric tube in place, Bowel sounds present X 4 quads. : Urine is clear. Derm: Skin is intact, Skin is dry, Skin is pale, Skin temperature is cool. 08:30 Reassessment: OG tube connected to low intermittent suction. mb9 08:45 Reassessment: Propofol increased multiple times due to pt moving intermittently. mb9 09:30 Reassessment:. General: Appears in no apparent distress. Pain: Unable to use pain mb9 scale. Patient is intubated. Neuro: Level of Consciousness is intubated and sedated . 09:30 Cardiovascular: Heart tones S1 S2 present Rhythm is sinus rhythm. Respiratory: Airway mb9 via oral intubation Respiratory effort is assisted. GI:. GI: Abdomen is flat. Derm: Skin is intact, Skin is dry, Skin is pale, Skin temperature is cool. 10:25 General: Appears in no apparent distress. Pain: Unable to use pain scale. Patient is mb9 intubated. 10:25 Neuro: Level of Consciousness is intubated and sedated. Cardiovascular: Heart tones S1 mb9 S2 present Rhythm is sinus rhythm. Respiratory: Airway via oral intubation Respiratory effort is assisted. Derm: Skin is dry, Skin is pale, Skin temperature is cool. 10:28 Reassessment: pt taken to CT via bed accompanied by RT and RN. ss 10:51 Reassessment: pt back from CT. ss 11:30 General: Appears in no apparent distress. Pain: Unable to use pain scale. Patient is mb9 intubated. 11:30 Neuro: Level of Consciousness is intubated and sedated. Cardiovascular: Rhythm is sinus mb9 rhythm. Respiratory: Airway via oral intubation Respiratory effort is asissted. Derm: Skin is intact, Skin is dry, Skin is pale, Skin temperature is cool. 12:33 General: Appears in no apparent distress. Pain: Unable to use pain scale. Patient is mb9 intubated. Neuro: Level of Consciousness is intubated and sedated. Cardiovascular: Rhythm is sinus rhythm. Respiratory: Airway via oral intubation Respiratory effort is asissted. Derm: Skin is dry, Skin is pale, Skin temperature is cool. 13:30 General: Appears in no apparent distress. Pain: Unable to use pain scale. Patient is mb9 intubated. Neuro: Level of Consciousness is intubated and sedated. 13:30 Cardiovascular: Heart tones S1 S2 present Rhythm is sinus rhythm. Respiratory: Airway mb9 via oral intubation Respiratory effort is assisted. Derm: Skin is dry, Skin is pale, Skin temperature is cool. 14:30 General:. Pain: Unable to use pain scale. Patient is intubated. Neuro: Level of mb9 Consciousness is intubated and sedated . Cardiovascular: Heart tones S1 S2 present Rhythm is sinus rhythm. Respiratory: Airway via oral intubation Respiratory effort is assisted. Derm: Skin is dry, Skin is pale, Skin temperature is cool. 15:30 Reassessment: Pt opening eyes and attempting to reach ET tube. MD notified. VO for mb9 bilateral wrists soft restraints obtained. Bilateral soft restraints applied to upper extremities. 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 See pt's chart for Personal Valuables Admission Checklist completed and witnessed by me and Lisa Whitfield RN. . 17:04 Reassessment: report given to admitting nurse Hortencia MARTINEZ. mb9 Vital Signs: 07:45 BP 126 / 94; Pulse 93; Resp 17 A; ss 07:45 Weight 75.75 kg; ss 07:45 BP 126 / 96; Pulse 93; Resp 25; Temp 98.6; Pulse Ox 89% on BVM; ss 07:50 BP 158 / 95; Pulse 80; Resp 22; Pulse Ox 100% on 100% FiO2 ETT vent; ss 07:55 BP 180 / 97; Pulse 84; Resp 31; Pulse Ox 100% on 100% FiO2 ETT vent; ss 07:57 BP 144 / 82; Pulse 83; Resp 23; Pulse Ox 100% on 100% FiO2 ETT vent; ss 08:00 BP 153 / 97; Pulse 84; Resp 28; Pulse Ox 100% on 100% FiO2 ETT vent; ss 08:05 BP 146 / 88; Pulse 81; Resp 24; Pulse Ox 100% on 100% FiO2 ETT vent; ss 08:10 BP 141 / 90; Pulse 85; Resp 26; Pulse Ox 100% on 100% FiO2 ETT vent; ss 08:15 BP 148 / 88; Pulse 82; Resp 23; Pulse Ox 100% on 100% FiO2 ETT vent; ss 08:20 BP 151 / 97; Pulse 82; Resp 21; Pulse Ox 100% on 100% FiO2 ETT vent; ss 08:25 BP 147 / 86; Pulse 80; Resp 21; Pulse Ox 100% on 100% FiO2 ETT vent; ss 08:30 BP 132 / 90; Pulse 82; Resp 21; Pulse Ox 100% on 100% FiO2 ETT vent; ss 08:35 BP 126 / 78; Pulse 81; Resp 18; Pulse Ox 100% on 100% FiO2 ETT vent; ss 08:40 BP 111 / 68; Pulse 82; Resp 18; Pulse Ox 100% on 100% FiO2 ETT vent; ss 08:45 BP 102 / 71; Pulse 83; Resp 15; Pulse Ox 100% on 100% FiO2 ETT vent; ss 08:50 BP 99 / 69; Pulse 80; Resp 14; Pulse Ox 100% on 100% FiO2 ETT vent; ss 08:55 BP 101 / 76; Pulse 82; Resp 15; Pulse Ox 100% on 100% FiO2 ETT vent; ss 09:00 BP 110 / 71; Pulse 80; Resp 17; Pulse Ox 100% on 100% FiO2 ETT vent; ss 09:05 BP 116 / 74; Pulse 80; Resp 13; Pulse Ox 100% on 100% FiO2 ETT vent; ss 09:10 BP 110 / 79; Pulse 78; Resp 15; Pulse Ox 100% on 100% FiO2 ETT vent; ss 09:15 BP 116 / 75; Pulse 76; Resp 14; Pulse Ox 100% on 100% FiO2 ETT vent; ss 09:30 BP 117 / 74; Pulse 76; Resp 18; Pulse Ox 100% on 100% FiO2 ETT vent; ss 09:45 BP 134 / 90; Pulse 74; Resp 18; Pulse Ox 100% on 100% FiO2 ETT vent; ss 10:00 BP 139 / 77; Pulse 74; Resp 17; Pulse Ox 100% on 100% FiO2 ETT vent; ss 10:15 BP 133 / 78; Pulse 74; Resp 18; Pulse Ox 100% on 100% FiO2 ETT vent; ss 10:52 BP 117 / 76; Pulse 73; Resp 18; Pulse Ox 100% on 30% FiO2 ETT vent; mb9 11:05 BP 115 / 68; Pulse 72; Resp 22; Pulse Ox 100% on 30% FiO2 ETT vent; mb9 11:10 BP 110 / 66; Pulse 72; Resp 18; Pulse Ox 100% on 30% FiO2 ETT vent; mb9 11:30 BP 110 / 74; Pulse 74; Resp 18; Pulse Ox 100% on 30% FiO2 ETT vent; mb9 11:45 BP 102 / 74; Pulse 74; Resp 18; Pulse Ox 100% on 30% FiO2 ETT vent; mb9 12:00 BP 111 / 71; Pulse 72; Resp 18; Pulse Ox 100% on 30% FiO2 ETT vent; mb9 12:15 BP 103 / 71; Pulse 72; Resp 17; Pulse Ox 100% on 30% FiO2 ETT vent; mb9 12:34 BP 116 / 70; Pulse 73; Resp 16; Pulse Ox 100% on 30% FiO2 ETT vent; mb9 13:30 BP 118 / 73; Pulse 74; Resp 18; Pulse Ox 100% on 30% FiO2 ETT vent; mb9 14:30 BP 93 / 69; Pulse 80; Resp 18; Pulse Ox 100% on 30% FiO2 ETT vent; mb9 ED Course: 07:46 Inserted saline lock: 20 gauge in right forearm, using aseptic technique. mb9 07:46 Assisted provider with intubation using 7.5 mm ETT via oral route. ET tube secured at mb9 23cm at the teeth. Set up intubation tray. Intubated by Aroldo Lui MD Placement verified by CO2 detector w/ + color change, auscultating bilateral breath sounds, Patient tolerated well. 07:48 EKG done, by ED staff, reviewed by Aroldo Lui MD. mb9 07:50 Patient arrived in ED. rn 07:50 Aroldo Lui MD is Attending Physician. rn 08:10 OG tube 14 fr placed and clamped awaiting chest xray for placement. mb9 08:13 Lisa Singh, RN is Primary Nurse. mb9 08:14 SARS RAPID Sent. mb9 08:15 Triage completed. ss 08:17 Arm band placed on right wrist. ss 08:23 Carmona cath inserted, using sterile technique, 16 Fr., by nm, balloon inflated, to mb9 gravity drainage. 08:30 Inserted saline lock: 20 gauge in right hand, using aseptic technique. Blood collected. bp 08:38 XRAY Chest (1 view) In Process Unspecified. EDMS 08:47 Lab(s) recollected, by ED staff, sent to lab. mb9 08:50 Type And Screen Sent. mb9 08:50 CBC Smear Scan Sent. mb9 09:57 Miriam Andrea MD is Hospitalizing Provider. rn 09:58 Bob Bird MD is Hospitalizing Provider. rn 10:05 Urine Drug Screen Sent. ss 10:48 Chest For Pe Angio In Process Unspecified. EDMS 17:57 Patient admitted, IV remains in place. mb9 Restraints: 15:30 Non-Violent Restraint: Order obtained. Initiated on July 17, 2022 at 15:30 mb9 Actions/Behavior observed: Confused/disoriented, has difficulty remembering/follow instructions, has impaired decision making, has decreased level of consciousness, unable to follow instructions, repeated attempts to remove/tamper lines/tubes/IV med devices \\T\\ wound dressing, Less restrictive alternatives attempted: decrease environmental stimuli, placed near Nurse station, reoriented to location, repositioned, lines/tubes covered, Circulation: Within defined parameters (based on Cardiovascular assessment) Skin integrity: Within defined parameters (based on Integumentary assessment) Range of Motion (ROM): performed. 17:00 Non-Violent Restraint: Actions/Behavior observed: Confused/disoriented, has difficulty mb9 remembering/follow instructions, has impaired decision making, has decreased level of consciousness, unable to follow instructions, repeated attempts to remove/tamper lines/tubes/IV med devices \\T\\ wound dressing, Less restrictive alternatives attempted: decrease environmental stimuli, placed near Nurse station, reoriented to location, repositioned, Circulation: Within defined parameters (based on Cardiovascular assessment) Skin integrity: Within defined parameters (based on Integumentary assessment) Range of Motion (ROM): performed. Criteria to discontinue Restraint not met. Restraint continued. Administered Medications: 07:47 Drug: Etomidate 20 mg Route: IVP; Site: right forearm; mb9 08:00 Follow up: Response: No adverse reaction ss 07:50 Drug: Midazolam 2 mg Route: IVP; Site: right forearm; mb9 09:10 Follow up: Response: No adverse reaction ss 07:54 Drug: Propofol 5 mcg/kg/min Route: IV; Rate: calculated rate; Site: right forearm; mb9 07:54 Follow up: Rate change 10 mcg/kg/min; started at 10 mch/kg/min per Dr. Lui mb9 07:59 Follow up: Response: RASS: Drowsy (-1); Rate change 12 mcg/kg/min mb9 08:04 Follow up: Response: RASS: Drowsy (-1); Rate change 14 mcg/kg/min mb9 08:09 Follow up: Response: RASS: Drowsy (-1); Rate change 16 mcg/kg/min mb9 08:14 Follow up: Response: RASS: Drowsy (-1); Rate change 18 mcg/kg/min mb9 08:19 Follow up: Response: RASS: Drowsy (-1); Rate change 20 mcg/kg/min mb9 08:24 Follow up: Response: RASS: Drowsy (-1); Rate change 22 mcg/kg/min mb9 08:29 Follow up: Response: RASS: Drowsy (-1); Rate change 24 mcg/kg/min mb9 08:34 Follow up: Response: RASS: Drowsy (-1); Rate change 26 mcg/kg/min mb9 08:39 Follow up: Response: RASS: Drowsy (-1); Rate change 28 mcg/kg/min mb9 08:44 Follow up: Response: RASS: Drowsy (-1); Rate change 30 mcg/kg/min mb9 09:49 Follow up: Response: RASS: Restless (+1); Rate change 10 bolus mb9 10:08 Follow up: Response: RASS: Drowsy (-1); Rate change 10 bolus mb9 10:58 Follow up: Response: RASS: Restless (+1); Rate change 20 bolus mb9 13:52 Follow up: Response: RASS: Drowsy (-1); Rate change 10 bolus mb9 16:20 Follow up: Response: RASS: Drowsy (-1); Rate change 10 bolus mb9 07:59 Drug: Midazolam 2 mg Route: IVP; Site: right forearm; mb9 09:10 Follow up: Response: No adverse reaction ss 09:01 Drug: NS 0.9% 1000 ml Route: IV; Rate: 1000 ml; Site: right hand; aa5 10:21 Follow up: Response: No adverse reaction; IV Status: Completed infusion ss 11:04 Drug: Midazolam 2 mg Route: IVP; Site: right forearm; mb9 14:13 Follow up: Response: No adverse reaction mb9 16:20 Drug: ProTONIX (pantoprazole) 40 mg Route: IVP; Site: right forearm; mb9 17:56 Follow up: Response: No adverse reaction mb9 17:30 Drug: ProTONIX (pantoprazole) 8 mg/hr Route: IV; Rate: 25 ml/hr; Site: right forearm; mb9 17:56 Follow up: Response: No adverse reaction mb9 Medication: 08:00 VIS not applicable for this client. mb9 Point of Care Testing: Guaiac: 08:21 Stool Guaiac: Positive; Stool Hemoccult Control: Pass; warning analyst: Output: 10:28 Urine: 1200ml (Carmona); Total: 1200ml. Outcome: 09:57 Decision to Hospitalize by Provider. rn 17:56 Admitted to ICU accompanied by nurse, via wheelchair, with oxygen, on monitor, with mb9 chart, Report called to MICHELLE Burnett 17:56 Condition: stable 17:56 Discharge instructions given to family, Instructed on the need for admit, Demonstrated understanding of instructions. 17:57 Patient left the ED. mb9 Signatures: Dispatcher [employer] EDMS Aroldo Lui MD MD rn Calderon, Audri, RN RN aa5 Paz Cruz RN RN ss Peltier, Brian, RN RN bp Breneman, Mary Beth RN RN mb9 Corrections: (The following items were deleted from the chart) 08:48 08:14 EKG done, by ED staff, mb9 mb9 09:39 08:54 75.75 kg; mb9 ss 11:43 07:50 General: Appears distressed, Behavior is unresponsive. ss aa5 11:45 07:50 Respiratory: Airway is compromised Respiratory pattern is tachypnea Breath sounds aa5 are clear bilaterally. Onset: The symptoms/episode began/occurred this morning, the patient has severe shortness of breath ss 11:46 07:50 Respiratory: Respiratory pattern is tachypnea Ventilations assisted via BVM at aa5 this time, preparing for intubation per Dr. Lui Breath sounds are clear bilaterally. Onset: The symptoms/episode began/occurred this morning, the patient has severe shortness of breath aa5 11:53 08:30 Neuro: mb9 aa5 11:53 08:30 Respiratory: Airway is patent Respiratory effort is even, unlabored, Respiratory aa5 pattern is tachypnea mb9 12:17 07:59 Rate change 12 mcg/kg/min mb9 mb9 12:18 08:04 Rate change 14 mcg/kg/min mb9 mb9 12:18 12:17 Response: RASS: Drowsy (-1); Rate change 12 mcg/kg/min mb9 mb9 12:19 08:09 Rate change 16 mcg/kg/min mb9 mb9 12:19 08:14 Rate change 18 mcg/kg/min mb9 mb9 12:19 08:19 Rate change 20 mcg/kg/min mb9 mb9 12:20 08:24 Rate change 22 mcg/kg/min mb9 mb9 12:20 08:29 Rate change 24 mcg/kg/min mb9 mb9 12:20 08:34 Rate change 26 mcg/kg/min mb9 mb9 12:21 08:39 Rate change 28 mcg/kg/min mb9 mb9 12:21 08:44 Rate change 30 mcg/kg/min mb9 mb9 12:22 09:49 Rate change 10 bolus mb9 mb9 12:22 10:08 Rate change 10 bolus mb9 mb9 12:24 10:58 Rate change 20 bolus mb9 mb9
--- NOTE | 2022-07-17 09:58 | EDPHYS ---
Physician Documentation [facility] Name: Alexander Bowman Age: 61 yrs Sex: Male : 1960 Arrival Date: 07/17/2022 Time: 07:50 Bed 3 Private MD: ED Physician Aroldo Lui HPI: 07/17 07:54 This 61 yrs old Male presents to ER via Unassigned with complaints of chest pain, rn unresponsive. 07:56 The patient presents with decreased responsiveness. Onset: The symptoms/episode rn began/occurred just prior to arrival. Possible causes: unknown. Associated signs and symptoms: Pertinent positives: chest pain. Current symptoms: In the emergency department the patient's symptoms are unchanged from the initial presentation. The patient has experienced a previous episode. The patient has been recently seen by a physician:. EMS reports unresponsive patient, called them for chest pain, was talking to them at beginning, told them he had been having chest pain, took 7 nitro prior to calling them, then became unresponsive when going downstairs, no trauma. EMS bagging patient for last 20 min or so. . Historical: - Allergies: 08:17 Aspirin; ss 08:17 Codeine; ss 08:17 Ibuprofen; ss 08:17 Levofloxacin; ss 08:17 mycins; ss 08:17 PENICILLINS; ss 08:17 Sulfa (Sulfonamide Antibiotics); ss 08:17 Tylenol-Codeine #3; ss - PMHx: 08:17 Anxiety; COPD; Hypertension; Myocardial infarction; Pneumonia; Pneumothorax; ss - PSHx: 08:17 18" bowel removal; Stented artery; ss - History obtained from: EMS. ROS: 07:56 Unable to obtain ROS due to altered mental status. rn Exam: 07:56 Constitutional: Being bagged by EMS, unresponsive Head/Face: Normocephalic, rn atraumatic. Eyes: Pupils equal round and reactive to light, extra-ocular motions intact. ENT: MMM Cardiovascular: Regular rate and irregular rhythm. No pulse deficits. Respiratory: No increased work of breathing, no retractions or nasal flaring. Abdomen/GI: soft, non-tender Skin: Warm, dry MS/ Extremity: Pulses equal, no cyanosis. Neuro: GCS 3, unresponsive to painful stimuli 16:09 ECG was reviewed by the Attending Physician. rn Vital Signs: 07:45 BP 126 / 94; Pulse 93; Resp 17 A; ss 07:45 Weight 75.75 kg; ss 07:45 BP 126 / 96; Pulse 93; Resp 25; Temp 98.6; Pulse Ox 89% on BVM; ss 07:50 BP 158 / 95; Pulse 80; Resp 22; Pulse Ox 100% on 100% FiO2 ETT vent; ss 07:55 BP 180 / 97; Pulse 84; Resp 31; Pulse Ox 100% on 100% FiO2 ETT vent; ss 07:57 BP 144 / 82; Pulse 83; Resp 23; Pulse Ox 100% on 100% FiO2 ETT vent; ss 08:00 BP 153 / 97; Pulse 84; Resp 28; Pulse Ox 100% on 100% FiO2 ETT vent; ss 08:05 BP 146 / 88; Pulse 81; Resp 24; Pulse Ox 100% on 100% FiO2 ETT vent; 08:10 BP 141 / 90; Pulse 85; Resp 26; Pulse Ox 100% on 100% FiO2 ETT vent; 08:15 BP 148 / 88; Pulse 82; Resp 23; Pulse Ox 100% on 100% FiO2 ETT vent; ss 08:20 BP 151 / 97; Pulse 82; Resp 21; Pulse Ox 100% on 100% FiO2 ETT vent; ss 08:25 BP 147 / 86; Pulse 80; Resp 21; Pulse Ox 100% on 100% FiO2 ETT vent; ss 08:30 BP 132 / 90; Pulse 82; Resp 21; Pulse Ox 100% on 100% FiO2 ETT vent; ss 08:35 BP 126 / 78; Pulse 81; Resp 18; Pulse Ox 100% on 100% FiO2 ETT vent; ss 08:40 BP 111 / 68; Pulse 82; Resp 18; Pulse Ox 100% on 100% FiO2 ETT vent; ss 08:45 BP 102 / 71; Pulse 83; Resp 15; Pulse Ox 100% on 100% FiO2 ETT vent; ss 08:50 BP 99 / 69; Pulse 80; Resp 14; Pulse Ox 100% on 100% FiO2 ETT vent; ss 08:55 BP 101 / 76; Pulse 82; Resp 15; Pulse Ox 100% on 100% FiO2 ETT vent; ss 09:00 BP 110 / 71; Pulse 80; Resp 17; Pulse Ox 100% on 100% FiO2 ETT vent; ss 09:05 BP 116 / 74; Pulse 80; Resp 13; Pulse Ox 100% on 100% FiO2 ETT vent; ss 09:10 BP 110 / 79; Pulse 78; Resp 15; Pulse Ox 100% on 100% FiO2 ETT vent; ss 09:15 BP 116 / 75; Pulse 76; Resp 14; Pulse Ox 100% on 100% FiO2 ETT vent; ss 09:30 BP 117 / 74; Pulse 76; Resp 18; Pulse Ox 100% on 100% FiO2 ETT vent; ss 09:45 BP 134 / 90; Pulse 74; Resp 18; Pulse Ox 100% on 100% FiO2 ETT vent; ss 10:00 BP 139 / 77; Pulse 74; Resp 17; Pulse Ox 100% on 100% FiO2 ETT vent; ss 10:15 BP 133 / 78; Pulse 74; Resp 18; Pulse Ox 100% on 100% FiO2 ETT vent; ss 10:52 BP 117 / 76; Pulse 73; Resp 18; Pulse Ox 100% on 30% FiO2 ETT vent; mb9 11:05 BP 115 / 68; Pulse 72; Resp 22; Pulse Ox 100% on 30% FiO2 ETT vent; mb9 11:10 BP 110 / 66; Pulse 72; Resp 18; Pulse Ox 100% on 30% FiO2 ETT vent; mb9 11:30 BP 110 / 74; Pulse 74; Resp 18; Pulse Ox 100% on 30% FiO2 ETT vent; mb9 11:45 BP 102 / 74; Pulse 74; Resp 18; Pulse Ox 100% on 30% FiO2 ETT vent; mb9 12:00 BP 111 / 71; Pulse 72; Resp 18; Pulse Ox 100% on 30% FiO2 ETT vent; mb9 12:15 BP 103 / 71; Pulse 72; Resp 17; Pulse Ox 100% on 30% FiO2 ETT vent; mb9 12:34 BP 116 / 70; Pulse 73; Resp 16; Pulse Ox 100% on 30% FiO2 ETT vent; mb9 13:30 BP 118 / 73; Pulse 74; Resp 18; Pulse Ox 100% on 30% FiO2 ETT vent; mb9 14:30 BP 93 / 69; Pulse 80; Resp 18; Pulse Ox 100% on 30% FiO2 ETT vent; mb9 Procedures: 09:25 Intubation: Ventilated with 100% NRB prior to procedure. O2 saturation prior to graduate intern was 96 %. Intubated orally using # 4 Tal blade with 7.5 mm ETT. was successful on first attempt. Cricoid pressure applied during procedure. Tube secured with ETT lomeli at right side of mouth measured 23 cm at teeth. Placement verified by CXR, CO2 detector with (+) color change, auscultating bilateral breath sounds, O2 saturation after procedure was 98 %. Patient tolerated well, Intubated immediately upon arrival as GCS 3 and tolerating OPA. MDM: 07:50 Patient medically screened. rn 15:37 ED course: Hemoglobin dropped 2 points, notified Dr. Guzman who is consulting GI, and rn he requested 2 units or PRBC ordered, which I did. . 07/17 07:51 Order name: Basic Metabolic Panel; Complete Time: 09:54 rn 07/17 07:51 Order name: CBC with Diff; Complete Time: 10:34 rn 07/17 07:51 Order name: NT PRO-BNP; Complete Time: 09:54 rn 07/17 07:51 Order name: PT-INR; Complete Time: 08:20 rn 07/17 07:51 Order name: Troponin HS; Complete Time: 09:54 rn 07/17 07:51 Order name: SARS RAPID; Complete Time: 08:24 rn 07/17 07:51 Order name: Ptt, Activated; Complete Time: 08:20 rn 07/17 07:52 Order name: ABG; Complete Time: 09:54 rn 07/17 08:16 Order name: CBC Smear Scan; Complete Time: 10:34 EDMS 07/17 08:17 Order name: Type And Screen bp 07/17 08:25 Order name: Glucose, Ancillary Testing; Complete Time: 08:40 EDMS 07/17 09:55 Order name: Urine Drug Screen; Complete Time: 10:34 rn 07/17 10:05 Order name: Urine Dipstick-Ancillary; Complete Time: 10:34 EDMS 07/17 15:23 Order name: CBC with Automated Diff; Complete Time: 15:30 EDMS 07/17 07:51 Order name: XRAY Chest (1 view); Complete Time: 08:51 rn 07/17 10:00 Order name: CT Chest For PE Angio rn 07/17 10:06 Order name: Chest For Pe Angio; Complete Time: 12:05 EDMS 07/17 15:32 Order name: Basic Metabolic Panel; Complete Time: 17:38 EDMS 07/17 15:32 Order name: Phosphorus; Complete Time: 17:38 EDMS 07/17 15:32 Order name: Creatine Phosphokinase; Complete Time: 17:38 EDMS 07/17 15:32 Order name: NT PRO-BNP; Complete Time: 17:38 EDMS 07/17 15:32 Order name: Lipid Profile; Complete Time: 17:38 EDMS 07/17 15:32 Order name: T4 Free; Complete Time: 17:38 EDMS 07/17 15:32 Order name: Magnesium; Complete Time: 17:38 EDMS 07/17 15:32 Order name: Thyroid Stimulating Hormone; Complete Time: 17:38 EDMS 07/17 15:37 Order name: Bb Add On bd 07/17 07:51 Order name: EKG; Complete Time: 07:52 rn 07/17 07:51 Order name: Cardiac monitoring; Complete Time: 08:19 rn 07/17 07:51 Order name: EKG - Nurse/Tech; Complete Time: 08:14 rn 07/17 07:51 Order name: IV Saline Lock; Complete Time: 08:14 rn 07/17 07:51 Order name: Labs collected and sent; Complete Time: 08:19 rn 07/17 07:51 Order name: O2 Per Protocol; Complete Time: 08:14 rn 07/17 07:51 Order name: O2 Sat Monitoring; Complete Time: 08:14 rn 07/17 08:16 Order name: Labs - recollect needed: collect all labs; Complete Time: 08:50 bd 07/17 08:53 Order name: [place]; Complete Time: 08:54 9 07/17 11:58 Order name: CONS Physician Consult EDLA 07/17 12:00 Order name: NPO; Complete Time: 12:55 EDMS EC:09 Rate is 72 beats/min. Rhythm is regular. QRS [place] is Normal. OR interval is normal. QRS rn interval is normal. QT interval is normal. No Q waves. T waves are Normal. No ST changes noted. Clinical impression: NSR w/ Non-specific ST/T Changes. Interpreted by me. Reviewed by me. Administered Medications: 07:47 Drug: Etomidate 20 mg Route: IVP; Site: right forearm; mb9 08:00 Follow up: Response: No adverse reaction 07:50 Drug: Midazolam 2 mg Route: IVP; Site: right forearm; mb9 09:10 Follow up: Response: No adverse reaction ss 07:54 Drug: Propofol 5 mcg/kg/min Route: IV; Rate: calculated rate; Site: right forearm; mb9 07:54 Follow up: Rate change 10 mcg/kg/min; started at 10 mch/kg/min per Dr. Lui mb9 07:59 Follow up: Response: RASS: Drowsy (-1); Rate change 12 mcg/kg/min mb9 08:04 Follow up: Response: RASS: Drowsy (-1); Rate change 14 mcg/kg/min mb9 08:09 Follow up: Response: RASS: Drowsy (-1); Rate change 16 mcg/kg/min mb9 08:14 Follow up: Response: RASS: Drowsy (-1); Rate change 18 mcg/kg/min mb9 08:19 Follow up: Response: RASS: Drowsy (-1); Rate change 20 mcg/kg/min mb9 08:24 Follow up: Response: RASS: Drowsy (-1); Rate change 22 mcg/kg/min mb9 08:29 Follow up: Response: RASS: Drowsy (-1); Rate change 24 mcg/kg/min mb9 08:34 Follow up: Response: RASS: Drowsy (-1); Rate change 26 mcg/kg/min mb9 08:39 Follow up: Response: RASS: Drowsy (-1); Rate change 28 mcg/kg/min mb9 08:44 Follow up: Response: RASS: Drowsy (-1); Rate change 30 mcg/kg/min mb9 09:49 Follow up: Response: RASS: Restless (+1); Rate change 10 bolus mb9 10:08 Follow up: Response: RASS: Drowsy (-1); Rate change 10 bolus mb9 10:58 Follow up: Response: RASS: Restless (+1); Rate change 20 bolus mb9 13:52 Follow up: Response: RASS: Drowsy (-1); Rate change 10 bolus mb9 16:20 Follow up: Response: RASS: Drowsy (-1); Rate change 10 bolus mb9 07:59 Drug: Midazolam 2 mg Route: IVP; Site: right forearm; mb9 09:10 Follow up: Response: No adverse reaction ss 09:01 Drug: NS 0.9% 1000 ml Route: IV; Rate: 1000 ml; Site: right hand; aa5 10:21 Follow up: Response: No adverse reaction; IV Status: Completed infusion ss 11:04 Drug: Midazolam 2 mg Route: IVP; Site: right forearm; mb9 14:13 Follow up: Response: No adverse reaction mb9 16:20 Drug: ProTONIX (pantoprazole) 40 mg Route: IVP; Site: right forearm; mb9 17:56 Follow up: Response: No adverse reaction mb9 17:30 Drug: ProTONIX (pantoprazole) 8 mg/hr Route: IV; Rate: 25 ml/hr; Site: right forearm; mb9 17:56 Follow up: Response: No adverse reaction mb9 Point of Care Testing: Guaiac: 08:21 Stool Guaiac: Positive; Stool Hemoccult Control: Pass; rn Disposition: 09:55 Critical Care:. rn Disposition Summary: 07/17/22 09:57 Hospitalization Ordered Hospitalization Status: Inpatient Admission rn Location: Intensive Care Unit rn Condition: Stable rn Problem: new rn Symptoms: have improved rn Bed/Room Type: Standard rn Provider: Bob Bird(07/17/22 09:58) rn Room Assignment: 8-(07/17/22 16:27) dw Diagnosis - Altered mental status, unspecified rn - Chest pain, unspecified rn - Anemia, unspecified rn Forms: - Medication Reconciliation Form rn - SBAR form mds rn time excluding procedures: 09:55 Critical care time: Bedside Care: 30 minutes, Consultation: 5 minutes. Total time: 35 rn minutes Signatures: Dispatcher [employer] EDJess Aden Diana RN RN Aroldo Johansen MD MD rn Calderon, Audri RN RN aa5 Paz Cruz RN RN ss Chema De La Torre, FRAME TABLE OPERATOR-C FRAME TABLE OPERATOR-Cla1 Lisa Singh, RN RN mb9 Corrections: (The following items were deleted from the chart) 09:58 09:57 Miriam Andrea rn rn 16:27 09:57 rn andrew
[2022-07-17 10:03] LABS: Anisocytosis 1+; Blood Morphology Comment NOTED (NOT SEEN); Platelet Estimate ADEQ; White Blood Cell Scan OK (OK)
[2022-07-17 10:05] LABS: Urine Blood Trace-intact (Negative); Urine Glucose Negative (Negative); Urine Protein Negative (Negative); Urine Specific Gravity 1.015 (1.005-1.030)
[2022-07-17 10:27] LABS: Barbiturates NEGATIVE (NEGATIVE); Benzodiazepines POSITIVE (NEGATIVE); Cocaine NEGATIVE (NEGATIVE); METHAMPHETAM NEGATIVE (NEGATIVE); Methadone NEGATIVE (NEGATIVE); Opiates NEGATIVE (NEGATIVE); Phencyclidine NEGATIVE (NEGATIVE); THC Cannibis NEGATIVE (NEGATIVE)
--- NOTE | 2022-07-17 11:04 | RAD REPORT ---
EXAM DESCRIPTION: CT - Chest For Pe Angio - 07/17/2022 10:47 am CLINICAL HISTORY: Chest pain. unresponsive, chest pain, intubated COMPARISON: Chest For Pe Angio dated 05/11/2022 TECHNIQUE: CT angiogram of the pulmonary arteries was performed with MIP. All CT scans are performed using dose optimization technique as appropriate and may include automated exposure control or mA/KV adjustment according to patient size. FINDINGS: No evidence of pulmonary thromboembolism. No acute aortic finding demonstrated. Pacemaker device is present. Enteric tube with its tip in the s tomach. Emphysematous changes are present with linear atelectasis in both lung bases. Small opacity superior segment left lower lobe present. No significant pericardial or pleural fluid. No concerning bony finding. IMPRESSION: No evidence of pulmonary thromboembolism. Mild diffuse COPD is present. Small opacity superior segment left lower lobe may represent a small ar ea developing infiltrate.
[2022-07-17] MEDS ORDERED: ONDANSETRON 4 MG/2 ML VIAL IV PRN (12:48)
--- NOTE | 2022-07-17 12:50 | P.HP ---
Certification for Inpatient Patient admitted to: Inpatient With expected LOS: >2 Midnights Patient will require the following post-hospital care: None Practitioner: I am a practitioner with admitting privileges, knowledge of patient current condition, hospital course, and medical plan of care. Services: Services provided to patient in accordance with Admission requirements found in Title 42 Section 412.3 of the Code of Federal Regulations Patient History Date of Service: 07/17/22 Reason for admission: Chest pain and unresponsiveness History of Present Illness: Patient is a 61-year-old male with a past medical history significant for NC, COPD, cardiac stent, pacemaker, depression, anxiety disorder, chronic pain syndrome who presents with complaint of chest pain and unresponsiveness. Patient currently intubated and unable to provide any history. Per nursing staff patient complained of shortness of breath and chest pain this morning w hile at home. Patient decided to call EMS and enroute to the ER patient became unresponsive. Patient did not lose pulse. No other signs and symptoms reported. Symptoms are aggravated or relieved by nothing. Patient was consequently intubated in the ER. Of note patient recently had cardiac stents placement placed 2 weeks ago Allergies acetaminophen [From Tylenol] Allergy (Verified 03/27/16 04:37) Rash codeine Allergy (Verified 03/27/16 04:37) Unknown levofloxacin [From Levaquin] Allergy (Verified 03/27/16 04:37) Unknown Penicillins Allergy (Verified 03/27/16 04:37) Unknown Sulfa (Sulfonamide Antibiotics) Allergy (Verified 03/27/16 04:37) Unknown vancomycin Allergy (Verified 05/27/16 20:08) Itching/Hives/Rash aspirin Adverse Reaction (Verified 03/27/16 04:37) Anaphylaxis Home Medications: Fluticasone [Flovent Hfa 110*] 1 puff IH BID PRN 03/27/16 Fluticasone/Salmeterol [Advair 500/50 Diskus*] 1 puff IH BID PRN 03/27/16 Mometasone/Formoterol [Dulera 100 Mcg-5 Mcg Inhaler] 2 puff IH BID* PRN 03/27/16 Nitroglycerin [Nitrostat*] 0.4 mg SL PRN PRN 03/27/16 Tiotropium [place] [Spiriva] 2 spray IH DAILY PRN 03/27/16 methocarbamoL [Robaxin*] 500 mg PO TID 03/27/16 Alprazolam [Xanax] 2 mg PO TID PRN #30 tablet 05/28/16 Enalapril [Vasotec*] 10 mg PO DAILY 06/17/18 Dexlansoprazole [Dexilant] 60 mg PO TID #90 01/20/22 Sucralfate [Carafate] 1 gm PO TID #30 tablet 01/20/22 metroNIDAZOLE [Flagyl*] 500 mg PO TID #12 tablet 01/20/22 - Past Medical/Surgical History Diabetic: No -: NC -: insomnia -: chronic pain syndrome -: anxiety -: depression -: COPD -: Detoriated disc in back -: heart stents -: pacemaker -: Pacemaker/defib -: stents X9 -: 18 in of colon removed -: L knee sx -: L elbow sx -: 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 -: Appendectomy - Family History Father -: Heart disease Mother -: Heart disease - Social History Smoking Status: Unknown if ever smoked Alcohol use: No CD- Drugs: No Caffeine use: Yes Place of Residence: Home Review of Systems is unable to be obtained (Patient intubated) Physical Examination - Physical Exam General: Unresponsive HEENT: Normocephalic, PERRLA Neck: Supple, 2+ carotid pulse no bruit, JVD not distended Respiratory: Clear to auscultation bilaterally, Diminished Cardiovascular: No edema, Normal pulses Capillary refill: <2 Seconds Gastrointestinal: Normal bowel sounds, Soft and benign Musculoskeletal: No clubbing, No contractures, No erythema Integumentary: No rashes, No breakdown, No significant lesion Neurological: Other (Unresponsive ) Lymphatics: No axilla or inguinal lymphadenopathy - Studies Laboratory Data (last 24 hrs) 07/17/22 08:42: WBC 12.90 H, Hgb 8.6 L, Hct 27.9 L, Plt Count 392 07/17/22 08:42: Sodium 141, Potassium 3.6, BUN 18, Creatinine 1.01, Glucose 96 07/17/22 07:58: PT 12.0, INR 1.09, APTT 26.5 Assessment and Plan - Plan --Altered mental status. Unclear etiology. Patient became unresponsive and to the ER. Intubated in the ER. Continue supportive care. --Chest pain. Livestock Dealer consulted in the ER. We will trend serial troponins. Telemetry to monitor for any significant arrhythmia. Will further recommendation per sheather. --Hx of CAD\NC. Patient had cardiac stents placed 2 weeks ago. Livestock Dealer on board. Continue home medications when appropriate. Will await further recommendation from sheather. --Presence of cardiac pacemaker. Telemetry to monitor for any malignant arrhythmia. Continue supportive care. --COPD. Patient currently intubated. Pulmonology consulted. Will await further recommendations. -- Anxiety disorder\depression. Continue home medications when appropriate. --GI bleed. Hemoglobin trending down. PRBCs ordered in the ER. Gastroenterology consulted. Patient placed on Pepcid IV. We will await further recommendation from supervisor slitting and shipping. --DVT prophylaxis with SCDs. Discharge Plan: Home Plan to discharge in: Greater than 2 days - Advance Directives Does patient have a Living Will: No Does patient have a Durable POA for Healthcare: Yes - Code Status/Comfort Care Code Status Assessed: Yes Code Status: Full Code Physician Review: Patient Assessed, Agree with Above Assessment and Plan Critical Care: No
[2022-07-17 15:14] LABS: Absolute Lymphocytes (CBC) 2.3 K/uL (0.7-4.9); Hematocrit 20.5 % (39.6-49.0); Lymphocytes % 20.6 % (15.3-44.8); MCV 73.3 fL (80-100); MPV 7.5 fL (7.6-11.3)
[2022-07-17 15:30] LABS: Phosphorus 2.9 mg/dL (2.5-4.9); Thyroid Stimulating Hormone 3.05 uIU/mL (0.360-3.740)
[2022-07-17 15:32] LABS: Magnesium 1.7 mg/dL (1.8-2.4); Potassium 4.2 mmol/L (3.5-5.1)
[2022-07-17] MEDS ORDERED: NA CHLORIDE 0.9% 250 ML ONE (16:08)
[2022-07-17] MEDS ORDERED: PANTOPRAZOLE 40 MG INJ ONE (16:08)
[2022-07-17] MEDS ORDERED: HALOPERIDOL LACT 5 MG/ML INJ IV PRN (16:55)
[2022-07-17] MEDS ORDERED: MIDAZOLAM HCL 2 MG/2 ML INJ IV PRN (16:55)
[2022-07-17] MEDS ORDERED: NA CHLORIDE 0.9% 250 ML IV PRN (16:55)
[2022-07-17] MEDS ORDERED: LORazepam 2 MG/ML VIAL IV PRN (16:55)
[2022-07-17] MEDS: PANTOPRAZOLE INJ 80 MG in NA CHLORIDE 0.9% 250 ML IV SCH (17:00)
[2022-07-17] MEDS: propofoL 1,000 MG/100 ML VIAL IV SCH ×2 (17:30→22:30)
--- NOTE | 2022-07-17 18:00 | P.PN ---
Date of Service: 07/17/22 Patient seen and examined. He is intubated. On propofol drip Blood pressure noted to be soft. Hemoglobin dropped from 8-6. Noted coffee-ground OG tube aspirate. No melena or hematochezia. Repeat troponin is pending. COVID-19 positive CTA thorax reporting small area of infiltrate. Diagnosis: Metabolic encephalopathy Acute blood loss anemia GI bleed. CAD s/p AICD COVID 19 infection. Plan: Transfused 2 units PRBC to keep hemoglobin greater than 8. IV Protonix. GI consulted-Dr. Lee informed and plans to see patient for EGD tomorrow. Patient seen by Dr. Quiroga. Continue to trend troponin. Ventilation protocol. Sedation with propofol and midazolam. Weaning trial starting from tomorrow. Obtain head CT.
[2022-07-17 18:35] VITALS: O2SAT 100
[2022-07-17 18:52] VITALS: BMI 22.7
--- NOTE | 2022-07-17 19:53 | RAD REPORT ---
EXAM DESCRIPTION: CT - Head Brain Wo Cont - 07/17/2022 7:25 pm CLINICAL HISTORY: Alteration of awareness/confusion COMPARISON: December 2021 TECHNIQUE: Computed axial tomography of the head was obtained. IV contrast was not requested. All CT scans are performed using dose optimization technique as appropriate and may include automated exposure control or mA/KV adjustment according to patient size. FINDINGS: An intracranial bleed is not seen . The ventricles are normal in caliber. No extra-axial fluid collection is noted. No significant hypodensity within the brain is noted. Fluid within the sinuses/ mastoids is not seen. IMPRESSION: No acute intracranial abnormality is seen. If patient's symptoms persist MRI of the bra in would be recommended.
[2022-07-17] MEDS ORDERED: FAMOTIDINE 20 MG/2 ML VIAL IV SCH (21:00)
[2022-07-17] MEDS ORDERED: HEPARIN 5000 UNIT/ML 1 ML VIAL SQ SCH (21:00)
--- NOTE | 2022-07-17 21:22 | P.PN ---
Date of Service: 07/18/22 Subjective: no acute events overnight no BM, no hematemesis hgb slight downtrending still ROS: 10 point ROS unable to be obtained, pt intubated/sedated Physical Exam: Gen: intubated/sedated HEENT: normal conjunctiva, sclera anicteric CV: regular rate & rhythm, no edema Pulm: on mech ventilation Abd: soft, non-tender, non-distended Neuro: intubated/sedated vitals reviewed Problem List Metabolic encephalopathy Acute blood loss anemia GI bleed. CAD s/p AICD COVID 19 infection. acute anemia suspect GI bleed - coffee-ground OG tube aspirate s/p 2u PRBCs 07/17; Goal HgB >8.0 GI consulted - Dr. Lee to see, tentative plan for EGD 07/18 IV protonix reportedly had large ulcer in duodenum recently; likely source of blood loss Chest pain, shortness of breath h/o CAD/RI, recent PCI ~2 weeks ago h/o pacemaker Dr. Quiroga consulted trend trop restart DAPT once GI has scoped COVID+, reported that patient tested positive ~1 month ago, doubt active onogoing infectio intubated prior to admission ED h/o COPD wean as tolerated Pulm consulted Anxiety/depression confirm home meds VTE: SCDs (GI bleed) Code: Full Dispo: continue ICU level of care Time Spent Managing Pts Care (In Minutes): 35
--- NOTE | 2022-07-17 21:47 | CON ---
Date of Consultation: 07/17/2022 Reason For Consultation: Chest pain and unresponsiveness. History Of Present Illness: This is a 61-year-old male with significant history of recent NH. He wa s transferred by air ambulance recently to [facility], where he had a stent of his LAD. Jocelyn mills has about 9 stents reported as COPD. Currently, he has been having some chest pain, so he took 7 pills of nitroglycerin, and called the ambulance. By the time the ambulance arrived, the patient b ecame obtunded and required intubation for airway protection and upon evaluation in the emergency [facility], he was on the ventilator and sedated and could not get any history from him. All history is obtai modesta from the records. Past Medical History: Coronary artery disease, COPD, depression, pacemaker. Medications: Refer reconciliation sheet for detailed list. Allergies: LIST OF ALLERGIES WAS REVIEWED. PLEASE REFER TO NURSE'S NOTES FOR THAT. Family History: No premature coronary artery disease or cancer. Social History: Unknown, likely a smoker. Has significant COPD. No other history is available. Review of Systems: Unable to obtain as the patient is intubated, but apparently he had chest pain earlier. Physical Examination: Vital Signs: Reviewed. Head and Neck: Pupils are equal and reactive to light. Intact eye movements. No JVD. No cervical lymphadenopathy. Neck: Supple. Thyroid is not enlarged. Lungs: Clear to auscultation bilaterally. No rhonchi, rales, or crackles. No accessory muscle use. Heart: Regular rate and rhythm. No extra sounds. Abdomen: Soft, nontender. Bowel sounds positive. No organomegaly. No masses or hernia. No rigidi ty or rebound. Extremities: No edema, clubbing, or cyanosis. Intact pulses. Skin: No rashes. Neurologic: He is sedated on the vent and cannot assess. Lymph Nodes: No cervical or axillary lymphadenopathy. Investigations: First troponin was negative. BUN is 15, creatinine 0.87, hemoglobin of 6.4. Assessment And Recommendation: 1.Chest pain. First set of cardiac enzymes negative and EKG without acute specific abnormalities. The patient had recent stent. He needs to be on dual anti-platelet therapy; however, is coming also with GI bleed. Currently he is on the ventilator, which was done for airway protection. Likely, thi s patient took too much nitroglycerin and became severely hypotensive and passed out. 2.Syncope, likely due to low blood pressure from the large amount of nitroglycerin. Currently, yue ls are stable. We will reassess once he is extubated. 3.Coronary artery disease with chest pain. Please trend cardiac enzymes, and plan to resume dual an tiplatelet therapy with Plavix and aspirin as soon as possible. 4.Gastrointestinal bleed. Hence, the dual anti-platelet have been placed on hold. We will monitor closely for any changes in his EKG and plan to restart it while anti-platelet therapy after the patie nt is evaluated by GI, likely it is going to end up having an EGD and colonoscopy. /ELI Voice ID: [id number] Report ID: [id number]
[2022-07-17] MEDS: FENTANYL CITR 100 MCG/2 ML IV PRN (22:00)
[2022-07-18] MEDS: AZTREONAM 1 GM in NA CHLORIDE 0.9% 100 ML IV SCH ×3 (00:40→16:28)
[2022-07-18] MEDS: PANTOPRAZOLE INJ 80 MG in NA CHLORIDE 0.9% 250 ML IV SCH (03:36)
[2022-07-18] MEDS: propofoL 1,000 MG/100 ML VIAL IV SCH ×2 (04:48→10:33)
[2022-07-18 05:00] LABS: Absolute Lymphocytes (CBC) 1.9 K/uL (0.7-4.9); Hematocrit 27.9 % (39.6-49.0); Lymphocytes % 23.3 % (15.3-44.8); MCV 76.3 fL (80-100); MPV 7.3 fL (7.6-11.3); RBC Red Blood Cell Count 3.66 M/uL (4.33-5.43)
[2022-07-18 05:04] LABS: Protime INR 0.89
[2022-07-18] MEDS: FENTANYL CITR 100 MCG/2 ML IV PRN (05:05)
[2022-07-18 05:25] LABS: Albumin 1.9 g/dL (3.4-5.0); Bilirubin Total 0.5 mg/dL (0.2-1.0); Magnesium 1.8 mg/dL (1.8-2.4); Protein, Total 5.7 g/dL (6.4-8.2)
[2022-07-18 06:25] LABS: Arterial Blood Carboxyhemoglob 1.4 % (0-1.5); Blood Gas Oxyhemoglobin 95.5 % (94-97); Blood O2 Saturation 98.3 % (92-98.5)
[2022-07-18] MEDS ORDERED: Ringers Lactate 1,000 ML IV SCH (08:00)
--- NOTE | 2022-07-18 08:12 | RAD REPORT ---
EXAM DESCRIPTION: RAD - Chest Single View - 07/18/2022 8:03 am CLINICAL HISTORY: Respiratory failure; on vent COMPARISON: Portable July 17, CT chest July 17 TECHNIQUE: AP portable chest image was obtained 07/18/2022 8:03 am . FINDINGS: Endotracheal tube is top of the aortic arch 5-6 cm above the owen. Positioning is simila r to prior imaging. NG tube extends below the diaphragm, off the field of view. No new or progressive lung parenchymal process. Interstitial pattern remains mildly prominent. Pacemaker/defibrillator remains in place. Heart and vasculature are normal. No measurable pleural eff usion and no pneumothorax. No acute bony abnormality seen. No acute aortic findings suspected. IMPRESSION: Stable portable chest as detailed.
[2022-07-18 09:21] VITALS: TEMP 98.3
[2022-07-18] MEDS ORDERED: dexAMETHasone 4 MG/ML VIAL IV SCH (12:27)
--- NOTE | 2022-07-18 12:28 | P.CNS ---
Date of Consult: 07/18/22 Reason for Consult: Respiratory failure Chief Complaint: Chest pain and unresponsiveness History of Present Illness: Patient is 61 years of age with past medical history of coronary artery disease pression multiple medical problems was admitted with chest pain and became unresponsive patient was intubated is currently stable on propofol only complained of some chest pain called EMS cardiac stents placed 2 weeks ago Allergies acetaminophen [From Tylenol] Allergy (Verified 03/27/16 04:37) Rash codeine Allergy (Verified 03/27/16 04:37) Unknown levofloxacin [From Levaquin] Allergy (Verified 03/27/16 04:37) Unknown Penicillins Allergy (Verified 03/27/16 04:37) Unknown Sulfa (Sulfonamide Antibiotics) Allergy (Verified 03/27/16 04:37) Unknown vancomycin Allergy (Verified 05/27/16 20:08) Itching/Hives/Rash aspirin Adverse Reaction (Verified 03/27/16 04:37) Anaphylaxis - Past Medical/Surgical History Diabetic: No -: [place] -: insomnia -: chronic pain syndrome -: anxiety -: depression -: COPD -: Detoriated disc in back -: heart stents -: pacemaker -: Pacemaker/defib -: stents X9 -: 18 in of colon removed -: L knee sx -: L elbow sx -: 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 -: Appendectomy - Family History Father Medical History: Heart disease Mother Medical History: Heart disease - Social History Smoking Status: Unknown if ever smoked Alcohol use: No CD- Drugs: No Caffeine use: Yes Place of Residence: Home Review of Systems is unable to be obtained Physical Examination Temp Pulse Resp BP Pulse Ox 98.3 F 74 16 97/51 L 100 07/18/22 08:00 07/18/22 09:00 07/18/22 09:00 07/18/22 09:00 07/18/22 09:00 General: Unresponsive Respiratory: Clear to auscultation bilaterally, Diminished Cardiovascular: No edema, Regular rate/rhythm, Normal S1 S2 Gastrointestinal: Normal bowel sounds, Soft and benign, Non-distended - Problems (1) Respiratory failure Current Visit: Yes Status: Acute Plan: Patient is 61 years of age became unresponsive history of coronary artery disease recent stents placed metabolic syndrome COPD no evidence of an acute [place] and to be mildly anemic hemoglobin of 6.9 with no history of bleed currently patient's blood pressure is slightly low no significant findings on CT and to wean off the ventilator wean off the propofol patient is on is active and gases reviewed satisfactory there does not seem to be an AA gradient on her percent FiO2 his PO2 was 455 which would be normal mild acidosis when the patient arrived doubt sepsis add some steroids serum cortisol level in the morning bolused with 1 L of IV fluid needs to be ruled out for any bleeding
[2022-07-18 12:50] LABS: MPV 7.6 fL (7.6-11.3); RBC Red Blood Cell Count 3.59 M/uL (4.33-5.43)
[2022-07-18] MEDS ORDERED: PANTOPRAZOLE INJ 80 MG in NA CHLORIDE 0.9% 250 ML IV SCH (13:00)
[2022-07-18] MEDS ORDERED: EPINEPHRINE/PF 1 MG/ML AMP ONE (13:23)
--- NOTE | 2022-07-18 14:00 | EKG ---
Test Date: 2022-07-17 Test Time: 11:58:18 Dining Services Director: [id number] MEASUREMENT RESULTS: Intervals: Rate: 72 TX: 166 QRSD: 102 QT: 378 QTc: 413 [place]: P: 27 TX: 166 QRS: 44 T: 118 INTERPRETIVE STATEMENTS: Normal sinus rhythm Inferior infarct, age undetermined Abnormal ECG Compared to ECG 05/11/2022 16:49:27 Atrial premature complex(es) no longer present Aberrant conduction of supraventricular beat(s) no longer present Myocardial infarct finding still present Electronically Signed On 07-18-22 13:59:24 CDT by Alistair Quiroga
--- NOTE | 2022-07-18 14:00 | EKG ---
Test Date: 2022-07-17 Test Time: 07:44:19 Reinforced Concrete Inspector: MB MEASUREMENT RESULTS: Intervals: Rate: 91 MN: 164 QRSD: 120 QT: 332 QTc: 408 [place]: P: 47 MN: 164 QRS: 46 T: 167 INTERPRETIVE STATEMENTS: Sinus rhythm with frequent and consecutive premature ventricular complexes Possible Lateral infarct, age undetermined Inferior infarct, age undetermined ST & T wave abnormality, consider anterior ischemia Abnormal ECG Compared to ECG 05/11/2022 16:49:27 Ventricular premature complex(es) now present ST (T wave) deviation now present Possible ischemia now present Atrial premature complex(es) no longer present Aberrant conduction of supraventricular beat(s) no longer present Myocardial infarct finding still present Electronically Signed On 07-18-22 13:59:43 CDT by Alistair Quiroga
[2022-07-18] MEDS ORDERED: OCTREOTIDE 500 MCG in NA CHLORIDE 0.9% 500 ML IV SCH (14:30)
[2022-07-18] MEDS ORDERED: MORPHINE 2 MG/ML SYR IV PRN (16:05)
[2022-07-18 18:33] VITALS: BP 96/64
[2022-07-18] MEDS ORDERED: ETOMIDATE 20 MG/10 ML VIAL IV ONE (18:44)
--- NOTE | 2022-07-18 19:25 | P.DS ---
Admission Date: 07/17/22 Discharge Date: 07/18/22 Disposition: AMA-LEFT AGAINST MEDICAL ADVIC Discharge Condition: FAIR Reason for Admission: Chest pain and unresponsiveness Consultations: GI, cardiology Brief History of Present Illness: Patient is a 61-year-old male with a past medical history significant for WI, COPD, cardiac stent, pacemaker, depression, anxiety disorder, chronic pain syndrome who presents with complaint of chest pain and unresponsiveness. Patient currently intubated and unable to provide any history. Per nursing staff patient complained of shortness of breath and chest pain this morning while at home. Patient decided to call EMS and enroute to the ER patient became unresponsive. Patient did not lose pulse. No other signs and symptoms reported. Symptoms are aggravated or relieved by nothing. Patient was consequently intubated in the ER. Of note patient recently had cardiac stents placement placed 2 weeks ago Hospital Course: Patient had endoscopy performed today by GI, there is no significant active bleeding noted there was food and other contents in his stomach. Patient was requesting food/liquids was currently n.p.o. per GI he became very frustrated with staff and decided to leave AGAINST MEDICAL ADVICE. I went to assess the patient he was of good decision-making capacity he was alert, oriented x4. He reported that he was can call his who would be picking him up and taking him home and that he would return to the hospital for any new or worsening symptoms. I discussed with him my concern for possible continued bleeding requiring transfusion or cardiac issues which could lead to severe disability or . Patient verbalized understanding reports he is going home no matter what. Patient signed AMA form witnessed by nursing staff. Vital Signs/Physical Exam: Temp Pulse Resp BP Pulse Ox 98.3 F 68 21 H 96/64 98 07/18/22 12:00 07/18/22 18:00 07/18/22 18:00 07/18/22 18:00 07/18/22 16:30 General: Alert, In no apparent distress, Oriented x3 HEENT: Atraumatic, PERRLA, EOMI Neck: Supple, JVD not distended Respiratory: Clear to auscultation bilaterally, Normal air movement Cardiovascular: Regular rate/rhythm, Normal S1 S2 Capillary refill: <2 Seconds Gastrointestinal: Normal bowel sounds, No tenderness Musculoskeletal: No tenderness Integumentary: No rashes Neurological: Normal speech, Normal tone, Normal affect Laboratory Data at Discharge: WBC 8.70 K/uL (4.3-10.9) 07/18/22 12:19 Hgb 8.8 g/dL (13.6-17.9) L 07/18/22 12:19 Hct 28.0 % (39.6-49.0) L 07/18/22 12:19 Plt Count 290 K/uL (152-406) 07/18/22 12:19 PT 10.7 SECONDS (9.2-12.8) 07/18/22 04:44 INR 0.89 07/18/22 04:44 APTT 26.5 SECONDS (24.3-36.9) 07/17/22 07:58 Sodium 142 mmol/L (136-145) 07/18/22 04:44 Potassium 4.0 mmol/L (3.5-5.1) 07/18/22 04:44 BUN 13 mg/dL (7-18) 07/18/22 04:44 Creatinine 0.95 mg/dL (0.55-1.3) 07/18/22 04:44 Glucose 97 mg/dL (74-106) 07/18/22 04:44 Phosphorus 2.9 mg/dL (2.5-4.9) 07/17/22 14:55 Magnesium 1.8 mg/dL (1.8-2.4) 07/18/22 04:44 Total Bilirubin 0.5 mg/dL (0.2-1.0) 07/18/22 04:44 AST 12 U/L (15-37) L 07/18/22 04:44 ALT 29 U/L (12-78) 07/18/22 04:44 Alkaline Phosphatase 75 U/L (45-117) 07/18/22 04:44 Triglycerides 93 mg/dL (<150) 07/17/22 14:55 Cholesterol 88 mg/dL (<200) 07/17/22 14:55 HDL Cholesterol 30 mg/dL (40-60) L 07/17/22 14:55 Cholesterol/HDL Ratio 2.93 07/17/22 14:55 Home Medications: Dexlansoprazole [Dexilant] 60 mg PO TID 07/18/22 Dicyclomine [Bentyl*] 10 mg PO TID 07/18/22 Enalapril [Vasotec*] 20 mg PO DAILY 07/18/22 Gabapentin 300 mg PO TID 07/18/22 Metoprolol Tartrate [Lopressor] 12.5 mg PO BID 07/18/22 Omeprazole [Prilosec] 40 mg PO DAILY 07/18/22 Pantoprazole Sodium [Protonix] 40 mg PO BID 07/18/22 Promethazine HCl 25 mg PO TID PRN 07/18/22 Sucralfate [Carafate Liq] 1 gm PO AC 07/18/22 Ticagrelor [Brilinta*] 90 mg PO BID 07/18/22 methocarbamoL [Methocarbamol] 500 mg PO TID 07/18/22 Followup: NONE,NONE [Primary Care Provider] -
[2022-07-18] MEDS ORDERED: TICAGRELOR 90 MG TABLET PO SCH (21:00)
--- NOTE | 2022-08-24 22:42 | CON ---
Reason For Consultation: Upper GI bleed. History Of Presenting Illness: Patient is a 61-year-old gentleman with past medical history of recen t [place], COPD, history of cardiac stents, history of pacemaker, depression was brought unresp onsive, was intubated for airway protection. He was found to have severe anemia with hemoglobin of 6 .4. GI was consulted. Of note, there is a history that the patient has had GI bleed in the past and he also had recently signed out from the hospital on a recent admission. No history was able to be obtained from the patient because he is intubated and sedated. All the history is from the chart. Allergies: TO MULTIPLE DRUGS MENTIONED IN CHART. Home Medications: As in the chart. Family History: Unable to obtain. Review of Systems: Unable to obtain. Past Medical History: As above. Past Surgical History: History of a pacemaker, defibrillator, stents, history of partial colon resec tion, Social History: Unable to obtain. Physical Examination: General: The patient is on the vent, stable, not agonal breathing, normotensive, not tachycardiac. Vital Signs: Afebrile. HEENT: Head atraumatic, normocephalic. Pupils equally reactive. Neck: Supple. Chest: Bilateral air entry. Abdomen: Soft, nondistended. Bowel sounds present. DECORATING MACHINE OPERATOR: Unable to evaluate. CVS: S1, S2 plus. Laboratory Data: Reviewed. As mentioned above, hemoglobin 6.4 actively bleeding. Juan Luis plata, given the history, we will proceed with an endoscopy while he is on the vent. The risks and compl ications of the procedure, which include, but are not limited to bleeding, infection, perforation, an esthesia complication were discussed with the healthcare proxy . She understands and agree s for the procedure. US/MODL Voice ID: [id number] Report ID: [id number]
--- NOTE | 2022-08-25 04:18 | OP ---
Surgeon: Cristian Lee MD Procedure Performed: Esophagogastroduodenoscopy. Indication For Procedure: Rule out upper GI bleed. Type Of Anesthesia: Monitored anesthesia. At this time, the patient is on propofol drip and sedated as we want full vent support. Complexity: Average. Technique: After obtaining informed consent from the patient's , and explaining risks and complications as mentioned in the H and P, the patient mouth and scope advanced to the zeina th and carefully guided with the intention of going to the duodenum and the duodenum was reached, the procedure was cut short due to the findings as described below. Findings: Esophagus: No gross lesion seen in the esophagus. Stomach: Mild to moderate solid food was found, which visualization. 20% of t he actual gastric mucosa could be seen. Retained food was light brown in color. There was no eviden ce of coffee-ground material or blood in there. Duodenum: The bulb and second portion appeared normal. There was no evidence of pyloric stenosis. Complications: None. Estimated Blood Loss: None. Tolerance To The Procedure: Excellent. Impression: Gastric retention. Plan: 1.Continue current management. 2.We will monitor the patient. We will keep him n.p.o. If he needs to be extubated, we can. If th ere are no further episodes of bleeding, he will not need an endoscopy, but we will keep him n.p.o., in case bleeding is noted or if there is more drop in hemoglobin and hematocrit at which time, we adrián l proceed with an upper endoscopy. US/MODL Voice ID: [id number] Report ID: [id number]
== END 2022-07-18 18:45 | disposition left against medical advice (07) | DRG 391 ==
LOC: ER 07:45 → ERHOLD 11:56 → 3RD-ICU 17:15
PROVIDERS: ADMIT Internal Medicine; ATTEND Hospitalist
PROC: 5A1935Z Respiratory Ventilation, Less than 24 Consecutive Hours (ICD-10-PCS; principal; 2022-07-17)
PROC: 0BH17EZ Insertion of Endotracheal Airway into Trachea, Via Natural or Artificial Opening (ICD-10-PCS; 2022-07-17)
PROC: 30233N1 Transfusion of Nonautologous Red Blood Cells into Peripheral Vein, Percutaneous Approach (ICD-10-PCS; 2022-07-17)
PROC: 0DJ08ZZ Inspection of Upper Intestinal Tract, Via Natural or Artificial Opening Endoscopic (ICD-10-PCS; 2022-07-17)
DX: K31.89 Other diseases of stomach and duodenum (principal); G93.41 Metabolic encephalopathy; U07.1 COVID-19; J96.00 Acute respiratory failure, unspecified whether with hypoxia or hypercapnia; K92.2 Gastrointestinal hemorrhage, unspecified; D62 Acute posthemorrhagic anemia; E87.20 Acidosis, unspecified; I10 Essential (primary) hypertension; F32.A Depression, unspecified; F41.9 Anxiety disorder, unspecified; G89.4 Chronic pain syndrome; J44.9 Chronic obstructive pulmonary disease, unspecified; I25.10 Atherosclerotic heart disease of native coronary artery without angina pectoris; I25.2 Old myocardial infarction; R55 Syncope and collapse; R07.9 Chest pain, unspecified; Z88.6 Allergy status to analgesic agent; Z78.1 Physical restraint status; Z88.5 Allergy status to narcotic agent; Z88.0 Allergy status to penicillin; Z88.8 Allergy status to other drugs, medicaments and biological substances; Z88.1 Allergy status to other antibiotic agents; Z95.1 Presence of aortocoronary bypass graft; Z95.5 Presence of coronary angioplasty implant and graft; Z95.0 Presence of cardiac pacemaker; Z53.29 Procedure and treatment not carried out because of patient's decision for other reasons; Z90.49 Acquired absence of other specified parts of digestive tract; Z79.01 Long term (current) use of anticoagulants; Z79.899 Other long term (current) drug therapy; Z89.022 Acquired absence of left finger(s)
CPT/HCPCS: 31500; 36415; 51702; 70450; 71045; 71275; 80048; 80053; 80061; 80307; 81003; 82550; 82805; 82947; 83735; 83880; 84100; 84439; 84443; 84484; 85025; 85027; 85610; 85730; 86850; 86900; 86901; 87811; 93005; 94002; 94003; 96361; 96374; 96375; 99291; 99292; C9113; J0171; J1100; J2250; J2270; J2354; J2704; J3010; J7030; J7040; J7050; J7120; P9016; Q9967

== ENCOUNTER 2022-07-19 14:13 | Emergency (ER) | payer OTHER ==
--- OUTSIDE RECORDS SUMMARY | 2022-07-19 14:33 | XMS REPORT | Continuity of Care Document ---
:1960 Author Organization [facility] t Address [address] [place] [address] Care Team Providers Name Role Phone Bob Weathers Primary Care Physician JYOTSNA QUINONEZ Attending Clinician Unavailable Ho MACARIO, Acosta Falcon Attending Clinician [phone] [place] MACARIO, Swati Attending Clinician Zachary MACARIO, Fozia Ruelas Attending Clinician Mendy MACARIO, Suzie Mcgowan Attending Clinician [phone] SUZIE COX Attending Clinician Unavailable Carson Mosher MD Attending Clinician Freddie MACARIO, Leeann Almanza Attending Clinician Vanessa HUNG, Lety Attending Clinician Tamy Silvestre MD Attending Clinician Doctor Unassigned, Crystal Rock Attending Clinician Unavailable TAMY SILVESTRE Attending Clinician Unavailable BLAIR LORENZO Attending Clinician Unavailable Russ HART, Sugey Attending Clinician SUGEY SOLANO Attending Clinician Unavailable VARUN QUIROZ Attending Clinician Unavailable Tonia MACARIO, Rimma Attending Clinician Marcelina De Los Santos MD Attending Clinician Varun Quiroz MD Attending Clinician Laura MACARIO, Yohana Attending Clinician Ray Noble CRNA Attending Clinician [phone] Ace MACARIO, Keiry Lo Attending Clinician Baldev MACARIO, Blair Attending Clinician Addison Ramirez MD Attending Clinician Eleuterio Wang MD Attending Clinician [phone] SUKHWINDER CARBAJAL Attending Clinician Unavailable Sukhwinder Carbajal MD Attending Clinician EILEEN BROWN Attending Clinician Unavailable Pc, Adc Vascular Room 1 - Attending Clinician Unavailable Pc, Adc Echo Room 1 - Attending Clinician Unavailable SWATI VELAZQUEZ Admitting Clinician Unavailable MARCELINA DE LOS SANTOS Admitting Clinician Unavailable TAMY SILVESTRE Admitting Clinician Unavailable Eleuterio Wang MD Admitting Clinician [phone] Payers Payer Name Policy Type Policy Number Effective Date Expiration Date Maday lizzy [facility] [id number] 2014 PLUS 00:00:00 MEDICARE PART A \\T\\ [id number] 2014 B 00:00:00 [facility] [id number] 2014 00:00:00 [place] [id number] 2014 00:00:00 Problems Condition Condition Condition Status Onset Resolution Last Treating Co mments Source Name Details Category Date Date Treatment Clinician Date Esophagiti Esophagiti Disease Active [facility], [place] [facility], [facility]15 [facility]: Medical grade D grade D 00 Center 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 05-15 [facility] ulcer ulcer 00:00: Medical disease disease 00 Center Chest pain Chest pain Disease Active [facility] not due to not due to 05-12 [facility] acute acute 00:00: Medical coronary coronary 00 Center syndrome syndrome GI bleed GI bleed Disease [facility] 00 [place] Anemia Anemia Disease Active [facility] 10[facility] 00:[facility]: Medical 00 [place] Epigastric Epigastric Disease Active [facility] pain pain 10-02 [facility] 00:00: Medical 00 [place] 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 06[facility] disease disease 00:00: Medical involving involving 00 [facility] [place] coronary coronary artery of artery of [place] heart heart without without angina angina pectoris pectoris Pneumonia Pneumonia Disease Active [facility] due to due to 04-28 [facility] infectious infectious 00:00: Me dical organism organism 00 [place] Chronic Chronic Disease Active [facility] obstruct[facility] [...] St N 10-02 [facility] 00:00: Medical 00 [place] Ibuprofe Propensi Active Anaphylaxis [facility] n ty to 10-02 [facility] adverse 00:00: Medical reaction 00 [place] Penicill Propensi Active Shortness of 2018-09 Univers ins ty to Breath 0-16 ity of adverse 00:00: [place] reaction 00 Medical s Branch Sulfa Propensi Active Swelling 2018-09 Univer s (Sulfona ty to 0-16 ity of mide adverse 00:00: [place] Antibiot reaction 00 Medica l ics) s Branch Aspirin Propensi Active Anaphylaxis 2018- Un mateusz ty to 0-16 ity of [...] 00 Medical Branch LEVOFLOX DRUG Active SOB 2018- Univers ACIN INGREDI 0-16 ity of 00:00: [place] 00 Medical Branch PENICILL Drug Active SOB 2018- Univers INS Class 0-16 ity of 00:00: [place] 00 Medical Branch SULFA Drug Active Swelling 2018- Univers (SULFONA Class 0-16 ity of MIDE 00:00: [place] ANTIBIOT 00 Medical ICS) Branch ACETAMIN DRUG Active Anaphylaxis 2018-09 Uni vers OPHEN INGREDI 0-16 ity of 00:00: [place] 00 Medical Branch Penicill DA Active U 2017-09 [facility] ins 2 00:00: [place] [address] [facility] Sulfa DA Active U 2017-09 [facility] (Sulfona [place] mide 00:00: [place] Antibio 00 Medical ics) Center codeine DA Active U 2017-09 [facility] 2 00:00: [place] [address] [facility] aspirin DA Active U 2017-09 [facility] 2 00:00: [address] Center acetamin DA Active U 2017-09 [facility] ophen 00:00: [address] levoflox DA Active U 2017-09 [facility] acin 00:[facility]: [address] ACETAMIN Allergy Active High Anaphylaxis SL [facility] OPHEN 04-29 00:00: 00 Acetamin Drug Active Anaphylaxis Pt states [facility] ophen Allergy 04-29 [facility] 00:00: throat Medical 00 [facility] up. SALICYLA Allergy Active [facility] JUAN 04-25 [...] Date Stop Date Source Natural brother Cancer [facility] Natural father Heart disease [facility] Natural mother Heart disease [facility] Social History Social Habit Start Date Stop Date Quantity Comments Source History of tobacco Snuff User Univer sity of use [place] [facility] History SDOH [facility] [email or web address] Transport [facility]Med [facility] Lived Alcohol intake 2022-05-15 2022-05-15 [facility] non-drinker of Medical Ce nter alcohol (finding) History SDOH 2022-05-12 2022-05-12 [address] [facility] [email or web address] Transport Med 00:00:00 00:00:[address] History SDSD 2022-05-12 2022-05-[address] [facility] Housing Unable to 00:00:00 00:00:00 Medical Center Pay History SDOH 2022-05-12 2022-05-[address] [facility] Housing Homeless 00:00:00 00:00:00 Medical Center Last Year Exposure to 2022-01-28 2022-02-07 Not sure University SARS-CoV-2 (event) 00:00:00 13:21:00 [facility] Cigarettes smoked 2016-04-25 2016-04-[address] [facility] current (pack per 00:00:00 00:00:00 Medical Center day) - Reported Cigarette 2016-04-25 2016-04-[address] [facility] pack-years 00:00:00 00:00:00 [facility] Tobacco use and 2016-04-25 2016-04-[address] [facility] [address] [facility] exposure 00:00:00 00:00:00 [facility] Sex Ass[birth year] At [birth year] [facility] 00:00:00 00:00:00 Medical Center Smoking Status Start Date Stop Date Source Former smoker 2016-04-25 00:00:00 2016-04-25 00:00:00 [facility] Medications Ordered Filled Start Stop Current Ordering Indication Dosage Frequency Signature Comments Components Source Medication Medication Date Date Medication? Clinician (SIG) Name Name lisinopriL 2021- No 10mg QD Take [address] [facility] (PRINIVIL,Z - 08-25 tablet (10 L [facility] ESTRIL) 10 00:00: 00:00 mg total) M edical MG tablet 00 :00 by mouth Center daily. lisinopriL 2021- No 10mg QD Take [address] [facility] [address] (PRINIVIL,Z 8- 08-25 tablet (10 [facility] ESTRIL) 10 00:00: 00:00 mg total) M edical MG tablet 00 :00 by mouth Center daily. fluticasone Yes bronchospas 1{puff} Inhale [address] -salmeterol 8-25 m puff by [facility] (ADVAIR) 13:21: prevention mouth via Medical 500-50 52 with COPD inhaler Cente r mcg/dose daily as diskus needed . inhaler fluticasone 2021-0 Yes 1{puff} Q.5D Inhale [address] (FLOVENT 8-25 puff by [facility] HFA) 110 13:21: mouth via Medi julieta mcg/actuati [address] on inhaler (two) times daily. nitroglycer 2021-[address] 0[address] in 8-25 mg under [facility] (NITROSTAT) 13:21: the tongue Medical 0.4 MG SL 52 every 5 Center tablet (five) minutes as needed for Chest pain Put 1 pill under tongue every 5min as needed for chest pain.No more than 3 doses in 15min.Call 911 if pain is unrelieved 5min after 1st dose . chlordiazeP 2021-0 Yes 10mg Q.[id number] Take [address] OXIDE 8-25 [id number] by mouth 3 [facility] (LIBRIUM) 13:21: 3D (three) Medic al 10 MG 52 times Center capsule daily. isosorbide 2021-0 Yes 30mg QD Take [address] mononitrate 8-25 by mouth Luke s (IMDUR) 30 13:21: daily. Medic al MG 24 hr 52 Center tablet methocarbam 2021-0 Yes 500mg Q.[id number] Take [address] oL 8-25 [id number] mg by [facility] (ROBAXIN) 13:21: 3D mouth 3 Medic al 500 MG 52 (three) Center tablet times daily. promethazin 2021-0 Yes 25mg Take [address] [facility] e 8-25 by mouth [facility] (PHENERGAN) 13:21: every 4 Med ical 25 MG 52 (four) Center tablet hours as needed for Nausea or Vomiting. enalapril 2021-0 Yes hypertensio 10mg Q.[id number] Take [address] [facility] (VASOTEC) 8-25 n [id number] by mouth 3 [facility] 10 MG 13:21: 3D (three) Medical tablet 52 times Center daily . fluticasone 2022-0 Yes bronchospas 1{puff} Inhale [address] -salmeterol 8-25 m puff by [facility] (ADVAIR) 13:21: prevention mouth via Medical 500-50 52 with COPD inhaler Cente r mcg/dose daily as diskus needed . inhaler fluticasone 2021-0 Yes 1{puff} Q.5D Inhale [address] (FLOVENT 8-25 puff by [facility] HFA) 110 13:21: mouth via Medi julieta mcg/actuati [address] on inhaler (two) times daily. nitroglycer 2021-[address] 0[address] in 8-25 mg under [facility] (NITROSTAT) 13:21: the tongue Medical 0.4 MG SL 52 every 5 Center tablet (five) minutes as needed for Chest pain Put 1 pill under tongue every 5min as needed for chest pain.No more than 3 doses in 15min.Call 911 if pain is unrelieved 5min after 1st dose . chlordiazeP 2021-0 Yes 10mg Q.[id number] Take [address] OXIDE 8-25 [id number] by mouth 3 [facility] (LIBRIUM) 13:21: 3D (three) Medic al 10 MG 52 times Center capsule daily. isosorbide 2021-0 Yes 30mg QD Take [address] mononitrate 8-25 by mouth Luke s (IMDUR) 30 13:21: daily. Medic al MG 24 hr 52 Center tablet methocarbam 2021-0 Yes 500mg Q.[id number] Take [address] oL 8-25 [id number] mg by [facility] (ROBAXIN) 13:21: 3D mouth 3 Medic al 500 MG 52 (three) Center tablet times daily. promethazin 2021-0 Yes 25mg Take [address] [facility] e 8-25 by mouth [facility] (PHENERGAN) 13:21: every 4 Med ical 25 MG 52 (four) Center tablet hours as needed for Nausea or Vomiting. enalapril 2021-0 Yes hypertensio 10mg Q.[id number] Take [address] [facility] (VASOTEC) 8-25 n [id number] by mouth 3 [facility] 10 MG 13:21: 3D (three) Medical tablet 52 times Center daily . dexlansopra 2021-0 2022- No 1{capsu Q.5D Take [address] [facility] zole 60 mg 8-25 08-25 le} capsule by [facility] capsule 10:47: 00:00 mouth 2 Medica l 37 :00 (two) Center times daily . dexlansopra 2021- No 1{capsu Q.5D Take [address] [facility] zole 60 mg 05-18- le} capsule by [facility] capsule 10:47: 00:00 mouth 2 Medica l 37 :00 (two) Center times daily . psyllium 2022- Yes 1{packe Q.5D Take [address] [facility] (METAMUCIL -18 05-25 t} packet by [facility] WITH SUGAR) 00:00: 23:59 mouth 2 Me dical 3.4 gram 00 :00 (two) Center packet times daily. psyllium 2022- Yes 1{packe Q.5D Take [address] (METAMUCIL 8- 08-25 t} packet by Daja es WITH SUGAR) 00:00: 23:59 mouth 2 Me dical 3.4 gram 00 :00 (two) Center packet times daily. sucralfate 2021- No 1g Take [address] [address] (CARAFATE) 05-18- mLs (1 g Luke s 100 mg/mL 00:00: 23:59 total) by Me dical suspension 00 :00 mouth Center every 6 (six) hours for 30 days. omeprazole 2021- No 40mg Q.5D Take [address] 20 mg TbEC 05-18 by mouth 2 [facility] 00:00: 23:59 (two) Medical 00 :00 times Center daily for 30 days. sucralfate 2021- No 1g Take [address] (CARAFATE) 05-18- mLs (1 g Luke s 100 mg/mL 00:00: 23:59 total) by Me dical suspension 00 :00 mouth Center every 6 (six) hours for 30 days. omeprazole 2021- No 40mg Q.5D Take [address] [facility] 20 mg TbEC 05-18- by mouth 2 [facility] 00:00: 23:59 (two) Medical 00 :00 times Center daily for 30 days. loperamide 2021- No 2mg Take [address] [facility] (IMODIUM) 2 05-18-04 capsule (2 L ukes mg capsule 00:00: 23:59 mg total) M edical 00 :00 by mouth 4 Center (four) times daily as needed for Diarrhea for up to 10 days. HYDROmorpho 2022-0 2022- No 2mg Take [address] [facility] [facility] ne 05-18 tablet (2 [facility] (DILAUDID) 00:00: 23:59 mg total) M edical 2 MG tablet 00 :00 by mouth Cent er every 4 (four) hours as needed for up to 10 days. Max Daily Amount: 12 mg loperamide 202-0 2022- No 2mg Take [address] [facility] (IMODIUM) 2 05-18 capsule (2 L ukes mg capsule 00:00: 23:59 mg total) M edical 00 :00 by mouth 4 Center (four) times daily as needed for Diarrhea for up to 10 days. HYDROmorpho 2022-0 2022- No 2mg Take [address] [facility] ne 05-18 tablet (2 [facility] (DILAUDID) 00:00: 23:59 mg total) M edical 2 MG tablet 00 :00 by mouth Cent er every 4 (four) hours as needed for up to 10 days. Max Daily Amount: 12 mg omeprazole 2022-0 2022- No 20mg Q.5D Take [address] 20 mg TbEC 05-18- by mouth 2 [facility] 00:00: 00:00 (two) Medical 00 :00 times Center daily for 30 days. omeprazole 2022-0 2022- No 20mg Q.5D Take [address] 20 mg TbEC 05-18 by mouth 2 [facility] 00:00: 00:00 (two) Medical 00 :00 times Center daily for 30 days. isosorbide 2022-0 Yes 30mg Take 30 mg [...] daily. Branch fluticasone 2021-0 [address] Use in [facility] ers propionate 5-17 each ity of 50 13:42: nostril [place] mcg/actuati 33 daily. Medica l on nasal Branch spray proMETHazin 2021-0 Yes 25mg Take 25 mg Univers e 25 mg 5-17 by mouth ity of tablet 13:42: every 4 [place] 33 (four) Medical hours as Branch needed. isosorbide 2-0 Yes 30mg Take 30 mg U nivers [...] daily. Branch fluticasone 2021-[address] in [facility] ers propionate 5-17 each ity of 50 [...] daily. Branch fluticasone 2021-0 [address] Use in [facility] ers propionate 5-17 each ity of 50 13:42: nostril [place] mcg/actuati 33 daily. Medica l on nasal Branch spray proMETHazin 0 Yes 25mg Take 25 mg Univers e 25 mg 5-17 by mouth ity of tablet 13:42: every 4 [place] [address] (four) Medical hours as Branch needed. isosorbide Yes 30mg Take 30 mg U nivers mononitrate 5-17 by mouth ity of 30 mg 24 hr 13:42: daily. [place] tablet 33 Medical Branch methocarbam Yes 500mg Take 500 U nivers ol 5-17 mg by ity of (ROBAXIN) 13:42: mouth 3 [place] 500 mg 33 (three) Medical tablet times Branch daily. Dexlansopra Yes Take by Uni vers zole 5-17 mouth 3 ity of (DEXILANT) 13:42: (three) [place] 60 mg 33 times Medical capsule daily. Branch fluticasone Yes Use in Univ ers propionate 5-17 each ity of 50 13:42: nostril [place] mcg/actuati 33 daily. Medica l on nasal Branch spray proMETHazin Yes 25mg Take 25 mg Univers e 25 mg 5-17 by mouth ity of tablet 13:42: every 4 [place] [address] (four) Medical hours as Branch needed. traZODone 2021- No 50mg QD Take [address] (DESYREL) 1-18 -18 by mouth [facility] 50 MG 13:03: 00:00 nightly. Medical tablet 25 :00 Center traZODone 2021-0 2021- No 50mg QD Take [address] (DESYREL) 1-18 -18 by mouth [facility] 50 MG 13:03: 00:00 nightly. Medical tablet 25 :00 Center tiotropium 2021-0 2021- No 18ug QD Inhale [address] (SPIRIVA) 1-18 01-18 mcg by [facility] 18 mcg 13:03: 00:00 mouth via Medic al inhalation 16 :00 inhaler Center capsule daily. tiotropium 2021-0 2021- No 18ug QD Inhale [address] (SPIRIVA) 1-18 01-18 mcg by [facility] 18 mcg 13:03: 00:00 mouth via Medic al inhalation 16 :00 inhaler Center capsule daily. clonazePAM 2021- No 1mg Take [address] (KlonoPIN) 10-1118 by mouth 2 [facility] 1 MG tablet 12:53: 00:00 (two) Medi julieta 26 :00 times Center daily as needed for Anxiety. clonazePAM 2021- No 1mg Take [address] (KlonoPIN) 10-11 by mouth 2 [facility] 1 MG tablet 12:53: 00:00 (two) Medi julieta 26 :00 times Center daily as needed for Anxiety. sucralfate 2021- No 1g Q.25D Take [address] (CARAFATE) 10-11 02-17 mLs (1 g Luke s 100 mg/mL 00:00: 23:59 total) by Me dical suspension 00 :00 mouth 4 Center (four) times daily for 30 days. sucralfate 2021- No 1g Q.25D Take [address] (CARAFATE) 10-11 02-17 mLs (1 g Luke s 100 mg/mL 00:00: 23:59 total) by Me dical suspension 00 :00 mouth 4 Center (four) times daily for 30 days. fluticasone 2021- No 2{spray [address] [address] propionate 10-04 } by Nasal Luke s (FLONASE) 10:40: 00:00 route Medica l 50 36 :00 daily as Center mcg/actuati needed for on nasal Rhinitis. spray fluticasone 2021- No 2{spray [address] propionate 10-04 } by Nasal Luke s (FLONASE) 10:40: 00:00 route Medica l 50 36 :00 daily as Center mcg/actuati needed for on nasal Rhinitis. spray ferrous 2021- No 325mg Take [address] [facility] sulfate 325 10-04 02-10 tablet [facility] (65 FE) MG 00:00: 23:59 (325 mg Med ical EC tablet 00 :00 total) by Cente r mouth 3 (three) times daily with [...] ical EC tablet 00 :00 total) by Cente r mouth 3 (three) times daily with meals for 30 days. pantoprazol 2021- No 40mg Q.5D Take [address] [facility] e 10-04 tablet (40 [facility] (PROTONIX) 00:00: 23:59 mg total) M edical 40 MG 00 :00 by mouth 2 Center tablet (two) times daily for 30 days. docusate 2021-2021- No 100mg Q.5D Take 1 [facility] sodium 10-04 capsule [facility] (COLACE) 00:00: 00:00 (100 mg Medic al 100 MG 00 :00 total) by Center capsule mouth 2 (two) times daily for 30 days. sucralfate 2021-2021- No 1g Q.25D Take [address] (CARAFATE) 10-04-18 mLs (1 g Luke s 100 mg/mL 00:00: 00:00 total) by Me dical suspension 00 :00 mouth 4 Center (four) times daily for 30 days. morphine 2021-2021- No 15mg Take [address] [facility] (MSIR) 15 10-04 tablet (15 [facility] MG tablet 00:00: 00:00 mg total) Me dical 00 :00 by mouth Center every 6 (six) hours as needed for Pain for up to 10 days. Max Daily Amount: 60 mg docusate 2021-0 2021- No 100mg Q.5D Take 1 [facility] sodium 10-0418 capsule [facility] (COLACE) 00:00: 00:00 (100 mg Medic al 100 MG 00 :00 total) by Center capsule mouth 2 (two) times daily for 30 days. sucralfate 2021-0 2021- No 1g Q.25D Take [address] (CARAFATE) 10-04 mLs (1 g Luke s 100 mg/mL 00:00: 00:00 total) by Ar dical suspension 00 :00 mouth 4 Center [...] ical EC tablet 00 :00 total) by [facility] mouth 3 (three) times daily with meals for 30 days. docusate 2021- No 100mg Q.5D Take 1 [facility] sodium 10-04 capsule [facility] (COLACE) 00:00: 00:00 (100 mg Medic al 100 MG 00 :00 total) by [place] capsule mouth 2 (two) times daily for 30 days. sucralfate 2021- No 1g Q.25D Take [address] (CARAFATE) 10-04 mLs (1 g [facility] s 100 mg/mL 00:00: 00:00 total) by Ar dical suspension 00 :00 mouth 4 Center (four) times daily for 30 days. pantoprazol 2021- No 40mg Q.5D Take [address] [facility] e 10-04 tablet (40 [facility] (PROTONIX) 00:00: 00:00 mg total) M edical 40 MG 00 :00 by mouth 2 Center tablet (two) times daily for 30 days. ferrous 2021-0 2021- No 325mg Take [address] [facility] [facility] sulfate 325 10-04 tablet [facility] (65 FE) MG 00:00: 00:00 (325 mg Med ical EC tablet 00 :00 total) by Cente r mouth 3 (three) times daily with [...] (four) times daily for 30 days. traZODone 2021-2021- No 50mg QD Take [address] (DESYREL) 10-03-10 by mouth [facility] 50 MG 10:26: 00:00 nightly. Medical tablet 59 :00 Center traZODone 2021-2021- No 50mg QD Take [address] (DESYREL) 10-03-10 by mouth [facility] 50 MG 10:26: 00:00 nightly. Medical tablet 59 :00 Center temazepam 2021-2021- No 15mg Take [address] (RESTORIL) -06 24-10 by mouth Luke s 15 mg 10:26: 00:00 every Medical capsule 22 :00 night as Center needed for Sleep. temazepam 2021-2021- No 15mg Take [address] (RESTORIL) 10-03-10 by mouth Luke s 15 mg 10:26: 00:00 every Medical capsule 22 :00 night as Center needed for Sleep. naproxen 2021-0 2021- No 500mg Take [address] [facility] (NAPROSYN) 1-10 01-10 mg by [facility] 500 MG 10:25: 00:00 mouth 2 Medical tablet 55 :00 (two) Center times daily with breakfast and dinner. naproxen 2021-0 2021- No 500mg Take [address] [facility] (NAPROSYN) 1-10 01-10 mg by [facility] 500 MG 10:25: 00:00 mouth 2 Medical tablet 55 :00 (two) Center times daily with breakfast and dinner. clonazePAM 2021- No 1mg Take [address] (KLONOPIN) 10-03 by mouth 2 [facility] 1 MG tablet 10:23: 00:00 (two) Medi julieta 14 :00 times Center daily as needed for Anxiety. clonazePAM 2021-2021- No 1mg Take [address] (KLONOPIN) 10-03 by mouth 2 [facility] 1 MG tablet 10:23: 00:00 (two) Medi julieta 14 :00 times Center daily as needed for Anxiety. pravastatin 2021- No 40mg QD Take [address] [facility] (PRAVACHOL) 10-02 by mouth [facility] 40 MG 14:51: 00:00 daily. Medical tablet 25 :00 [place] pravastatin 2021- No 40mg QD Take [address] [facility] (PRAVACHOL) 10-02 by mouth [facility] 40 MG 14:51: 00:00 daily. Medical tablet 25 :00 [place] chlordiazeP 2019-09 Yes 10mg Take 10 mg [...] Medica l on nasal Branch spray Fluticasone 2020-1 Yes 1{puff} Inhale 1 Univers -Salmeterol 0-26 Puff 3 ity of (ADVAIR 15:56: (three) [place] DISKUS) 14 times Medical 500-50 daily. Branch mcg/dose inhalation disk proMETHazin 2020- Yes 25mg Take 25 mg Univers e 25 mg 0-26 by mouth ity of tablet 15:56: every 4 [place] 14 (four) Medical hours as Branch needed. chlordiazeP 2020-1 Yes 10mg Take 10 mg [...] 500-50 daily. Branch mcg/dose inhalation disk chlordiazeP 2019-09 Yes 10mg Take 10 mg Univers OXIDE 10 mg 0-26 by mouth 3 it y of capsule 10:56: (three) [place] 14 times Medical daily. Branch hydrocodone 2019-09 Yes Take by Uni vers /acetaminop 0-26 mouth 4 ity o f hen 10:56: (four) [place] (VICODIN ES 14 times Medical ORAL) daily. Branch Fluticasone 2019-09 Yes 1{puff} Inhale 1 [facility] -Salmeterol 0-26 Puff 3 ity of (ADVAIR 10:56: (three) [place] DISKUS) 14 times Medical 500-50 daily. Branch mcg/dose inhalation disk enalapril 2019-09 Yes HFrEF 10mg Take 1 Unive rs 10 mg 0-26 (heart tablet by ity of tablet 00:00: failure mouth 2 with (two) Medical reduced times Branch ejection daily. fraction) enalapril 2019-09 Yes [id number] 10mg Take 1 U nivers 10 mg 0-26 tablet by ity of tablet 00:00: mouth 2 (two) Medical times Branch daily. enalapril 2019-09 Yes [id number] 10mg Take 1 U nivers 10 mg 0-26 tablet by ity of tablet 00:00: mouth 2 (two) Medical times Branch daily. enalapril 2019-09 Yes [id number] 10mg Take 1 U nivers 10 mg 0-26 tablet by ity of tablet 00:00: mouth 2 (two) Medical times Branch daily. enalapril 2019-09 Yes [id number] 10mg Take 1 U nivers 10 mg 0-26 tablet by ity of tablet 00:00: mouth 2 (two) Medical times Branch daily. carvediloL 2020- Yes 3.125mg Take 1 Un mateusz 3.125 mg 7-10 tablet by ity of tablet 00:00: mouth 2 (two) Medical times Branch daily with meals. carvediloL 2019- Yes 3.125mg Take 1 Un mateusz 3.125 mg 7-10 tablet by ity of tablet 00:00: mouth (two) Medical times Branch daily with meals. carvediloL 2020-0 Yes 3.125mg Take 1 Un mateusz 3.125 mg 7-10 tablet by ity of tablet 00:00: mouth 2 00 (two) Medical times Branch daily with meals. carvediloL 2020-0 Yes 3.125mg Take 1 Un mateusz 3.125 mg 7-10 tablet by ity of tablet 00:00: mouth 2 00 (two) Medical times Branch daily with meals. carvediloL 2020-0 Yes 3.125mg Take 1 Un mateusz 3.125 mg 7-10 tablet by ity of tablet 00:00: mouth 2 (two) Medical times Branch daily with meals. meropenem 2021- No 1g Inject [address] (MERREM) 05-08 intravenou Luke s MBP 1 gm in 00:00: 00:00 sly every Medical 100 mL NS 00 :00 8 (eight) Cente r hours. lidocaine 2021- No Apply [facility] (XYLOCAINE) 05-0810 topically [facility] 5 % 00:00: 00:00 as needed. Medica l ointment 00 :00 Center meropenem 2021- No 1g Inject [address] (MERREM) 05-08 intravenou Luke s MBP 1 gm in 00:00: 00:00 sly every Medical 100 mL NS 00 :00 8 (eight) Cente r hours. lidocaine 2021- No Apply [facility] (XYLOCAINE) 05-08 topically [facility] 5 [...] 190.5 cm WEIGHT 2021-10-11 13:11:00 83.462 kg WEIGHT 2021-10-02 13:00:00 91.627 kg HEIGHT 2021-10-02 13:00:00 190.5 cm WEIGHT 2021-10-02 13:00:00 91.627 kg HEIGHT 2021-10-02 13:00:00 190.5 cm WEIGHT 2021-10-02 13:00:00 91.627 kg HEIGHT 2021-10-02 13:00:00 190.5 cm Heart rate 2022-05-18 10:00:00 95 /min [facility] Respiratory rate 2022-05-18 10:00:00 18 /min [facility] Oxygen saturation in 2022-05-18 10:00:00 96 /min [facility] Arterial blood by Medical Ce nter Pulse oximetry Systolic blood 2022-05-18 08:02:00 109 mm[Hg] [facility] Diastolic blood 2022-05-18 08:02:00 57 mm[Hg] [facility] Body temperature 2022-05-18 08:02:00 36.56 Yoly [facility] Body weight 2022-05-18 06:15:00 70.262 kg [facility] BMI 2022-05-18 06:15:00 21.01 kg/m2 [facility] Body height 2022-05-12 00:04:[address] [facility] Procedures Procedure Date / Time Performing Clinician Source Performed PHOSPHORUS 2022-05-18 04:06:00 Fozia Sharma [facility] PHOSPHORUS 2022-05-17 16:25:00 Fozia Sharma [facility] VITAMIN D, 25-HYDROXY 2022-05-17 03:15:00 Fozia Sharma [facility] PHOSPHORUS 2022-05-17 03:15:00 Fozia Sharma [facility] BASIC METABOLIC PANEL 2022-05-17 03:15:00 Fozia Sharma [facility] MAGNESIUM 2022-05-17 03:15:00 Fozia Sharma [facility] CBC W/PLT COUNT & AUTO 2022-05-16 13:54:00 Fozia Sharma [facility] BASIC METABOLIC PANEL 2022-05-16 13:54:00 Fozia Sharma [facility] MAGNESIUM 2022-05-16 13:54:00 Fozia Sharma [facility] PHOSPHORUS 2022-05-16 13:54:00 Fozia Sharma [facility] PTH, INTACT 2022-05-16 13:54:00 Zachary Foziakristyn Ruelas [facility] CALCIUM, IONIZED 2022-05-16 13:54:00 Fozia Sharma [facility] PROLACTIN 2022-05-16 13:54:00 Fozia Sharma [facility] CBC W/PLT COUNT & AUTO 2022-05-16 13:54:00 Fozia Sharma [facility] CBC W/PLT COUNT & AUTO 2022-05-15 04:37:00 Fozia Sharma [facility] GASTRIN 2022-05-15 04:37:00 Fozia Sharma [facility] BASIC METABOLIC PANEL 2022-05-15 04:37:00 Fozia Sharma [facility] MAGNESIUM 2022-05-15 04:37:00 Fozia Sharma [facility] PHOSPHORUS 2022-05-15 04:37:00 Fozia Sharma [facility] CBC W/PLT COUNT & AUTO 2022-05-15 04:37:00 Fozia Sharma [facility] DIFFERENTIAL Center CBC W/PLT COUNT & AUTO 2022-05-14 17:33:00 Fzoia Sharma [facility] DIFFERENTIAL Center PARIETAL CELL ANTIBODY, 2022-05-14 17:33:00 Fozia Sharma [facility] IGG Center INTRINSIC FACTOR BLOCKING 2022-05-14 17:33:00 Fozia Sharma [facility] ANTIBODY Center CBC W/PLT COUNT & AUTO 2022-05-14 17:33:00 Fozia Sharma [facility] DIFFERENTIAL [place] [facility] ABDOMEN/PELVIS WITH IV 2022-05-14 12:22:00 Nic Jerome [facility] CONTRAST Center CBC W/PLT COUNT & AUTO 2022-05-14 05:24:00 Fozia Sharma [facility] BASIC METABOLIC PANEL 2022-05-14 05:24:00 Fozia Sharma [facility] MAGNESIUM 2022-05-14 05:24:00 Fozia Sharma [facility] PHOSPHORUS 2022-05-14 05:24:00 Fozia Sharma [facility] CBC W/PLT COUNT & AUTO 2022-05-14 05:24:00 Fozia Sharma [facility] VITAMIN B12 2022-05-14 04:02:00 [facility] IRON, TIBC, % SAT. 2022-05-14 04:02:00 [facility] HC LAB HIV-1 AG W/HIV-1&2 2022-05-14 04:02:00 Fozia Sharma [facility] AB Center RPR 2022-05-14 04:02:00 Zachary, [facility] CBC W/PLT COUNT & AUTO 2022-05-13 20:39:00 [facility] W/PLT COUNT & AUTO 2022-05-13 20:39:00 [facility] REPORT OF PROCEDURE - 2022-05-13 12:49:49 Vidhi [facility] ENDOSCOPY URL Center TISSUE EXAM 2022-05-13 10:18:00 Vidhi [facility] ESOPHAGOGASTRODUODENOSCOP 2022-05-13 09:46:00 Vidhi [facility], WITH BIOPSY Center CBC W/PLT COUNT & AUTO 2022-05-13 03:20:00 [facility] PT/APTT 2022-05-13 03:20:00 [facility] CBC W/PLT COUNT & AUTO 2022-05-13 03:20:00 [facility] 2D ECHO W/ DOPPLER 2022-05-12 15:51:45 [facility] (CW/PW/COLOR) [place] C-REACTIVE PROTEIN 2022-05-12 14:57:00 [facility] LACTIC ACID, VENOUS 2022-05-12 10:38:00 [facility] CBC W/PLT COUNT & AUTO 2022-05-12 10:38:00 [facility] CBC W/PLT COUNT & AUTO 2022-05-12 10:38:00 [facility] ECG 12-LEAD 2022-05-12 02:32:35 Unknown, Hl7 [facility] ECG 12-LEAD 2022-05-12 02:32:35 [facility] ECG 12-LEAD 2022-05-12 02:32:35 Unknown, Hl7 [facility] CBC W/PLT COUNT & AUTO 2022-05-12 02:07:00 [facility] DIFFERENTIAL Center COMPREHENSIVE METABOLIC 2022-05-12 02:07:00 [facility] PANEL Center HIGH SENSITIVITY TROPONIN 2022-05-12 02:07:00 [facility] I Center PROTHROMBIN TIME/INR 2022-05-12 02:07:00 [facility] Hospital [facility] APTT 2022-05-12 02:07:00 [facility] D-DIMER 2022-05-12 02:07:00 [facility] LACTIC ACID, VENOUS 2022-05-12 02:07:00 [facility] B-TYPE NATRIURETIC FACTOR 2022-05-12 02:07:00 [facility] (BNP) Center TYPE AND SCREEN, 2022-05-12 02:07:00 [facility] AUTOMATED Center CBC W/PLT COUNT & AUTO 2022-05-12 02:07:00 [facility] DIFFERENTIAL [place] X[place] CHEST 1 VIEW PORTABLE 2022-05-12 01:22:00 [facility] [facility] / BEDSIDE Center EKG-SCANNED 2022-05-11 00:00:00 Provider, [facility] EXTERNAL PROVIDER RECORDS 2022-02-21 05:01:00 Doctor Unassigned, [facility] AUTHORIZATION FOR RELEASE 2021-11-02 06:01:00 Doctor Unassigned, [facility] REPORT OF PROCEDURE - 2021-10-04 08:56:25 Keiry Bello [facility] ENDOSCOPY URL Center TISSUE EXAM 2021-10-04 08:30:00 Keiry Bello [facility] ESOPHAGOGASTRODUODENOSCOP 2021-10-04 08:02:00 Keiry Bello [facility] Y, WITH BIOPSY Center ABORH, MANUAL 2021-10-04 04:36:00 Kenyon, Conchislinda Farmer [facility] COMPREHENSIVE METABOLIC 2021-10-04 03:42:00 Marcelina De Los Santos [facility] Center CBC W/PLT COUNT & AUTO 2021-10-04 03:42:00 Marcelina De Los Santos [facility] DIFFERENTIAL Center MAGNESIUM 2021-10-04 03:42:00 Marcelina De Los Santos [facility] PHOSPHORUS 2021-10-04 03:42:00 Marcelina De Los Santos [facility] TYPE AND SCREEN, 2021-10-04 03:42:00 Zep[facility] AUTOMATED [facility] CBC W/PLT COUNT & AUTO 2021-10-04 03:42:00 Marcelina De Los Santos [facility] CT ABDOMEN/PELVIS WITH IV 2021-10-03 16:42:00 [facility] CONTRAST [facility] 2D ECHO W/ DOPPLER 2021-10-03 07:41:01 Jaylin Hough [facility] (CW/PW/COLOR) Center COMPREHENSIVE METABOLIC 2021-10-03 03:51:00 Marcelina De Los Santos [facility] PANEL [place] CBC W/PLT COUNT & AUTO 2021-10-03 03:51:00 Marcelina De Los Santos [facility] MAGNESIUM 2021-10-03 03:51:00 Marcelina De Los Santos [facility] PHOSPHORUS 2021-10-03 03:51:00 Marcelina De Los Santos [facility] HEMOGLOBIN A1C 2021-10-03 03:51:00 Marcelina De Los Santos [facility] LIPID PANEL 2021-10-03 03:51:00 Marcelina De Los Santos [facility] CBC W/PLT COUNT & AUTO 2021-10-03 03:51:00 Marcelina De Los Santos [facility] URINALYSIS WITH 2021-10-02 23:23:00 Marcelina De Los Santos [facility] MICROSCOPIC IF INDICATED Center SARS-COV2/RT-PCR ([facility] & 2021-10-02 22:58:00 De Los Santos, [facility] REF LABS) [place] XR ABDOMEN/KUB 1 VIEW 2021-10-02 17:46:00 [facility]y [facility] ECG 12-LEAD 2021-10-02 15:15:06 Stiven [facility] CBC W/PLT COUNT & AUTO 2021-10-02 15:00:00 Stiven [facility] DIFFERENTIAL Center COMPREHENSIVE METABOLIC 2021-10-02 15:00:00 Stiven [facility] PANEL Center MAGNESIUM 2021-10-02 15:00:00 Stiven [facility] PHOSPHORUS 2021-10-02 15:00:00 Stiven [facility] PROTHROMBIN TIME/INR 2021-10-02 15:00:00 Stiven [facility] LACTIC ACID, VENOUS 2021-10-02 15:00:00 Stiven [facility] HIGH SENSITIVITY TROPONIN 2021-10-02 15:00:00 Marcelina De Los Santos [facility] B-TYPE NATRIURETIC FACTOR 2021-10-02 15:00:00 Marcelina De Los Santos [facility] (BNP) [place] TSH/FREE T4 IF INDICATED 2021-10-02 15:00:00 Stiven [facility] FERRITIN 2021-10-02 15:00:00 Stiven [facility] IRON, TIBC, % SAT. 2021-10-02 15:00:00 Stiven [facility] (WITHOUT FERRITIN) [place] VITAMIN B12 AND FOLATE 2021-10-02 15:00[facility]00 [facility] RET[facility]ULOCYTE [facility] 2021-10-02 15:00[facility]00 [facility] - 2021-10-02 15:00[facility]00 [facility] Center T4, FREE 2021-10-02 15:00:00 Stiven [facility] LIPASE 2021-10-02 15:00:00 Roby [facility] CBC W/PLT COUNT & AUTO 2021-10-02 15:00:00 Marcelina De Los Santos [facility] Medical DIFFERENTIAL Center XR CHEST 1 VIEW PORTABLE 2021-10-02 14:34:00 Marcelina De Los Santos [facility] Medical / BEDSIDE Center 2D ECHO W/ DOPPLER 2021-10-02 14:07:22 Marcelina De Los Santos [facility] (CW/PW/COLOR) Center ARRYTHMIA IMPLANT REPORT 2021-10-02 00:00:00 Provider, Default [facility] EKG-SCANNED 2021-10-02 00:00:00 Provider, Default [facility] Sc[facility] MEDICATION CORRESPONDENCE 2021-01-13 05:01:00 Doctor Unassigned, [facility] Plan of Care Planned Activity Planned Date Details Comments Source Future Scheduled 2024-10-[address] [facility] 00:[facility]00 (procedure) [code = Medical Center 81509775] Future Scheduled 2024-10-[address] [facility] 00:00:00 (procedure) [code = Medical Center 82725763] Future Scheduled 2022-05-25 INFLUENZA VACCINE (#1) [facility] [code = INFLUENZA Medical Ce nter VACCINE (#1)] Future Scheduled 2022-05-25 INFLUENZA VACCINE (#1) [facility] 00:00:00 [code = INFLUENZA Medical Ce nter VACCINE (#1)] Future Scheduled 2021-09-[address] [facility] Test 00:00:00 (12+) [code = Medical Center DEPRESSION SCREENING (12+)] Future Scheduled 2021-09-[address] [facility] Test 00:00:00 (12+) [code = Medical Center DEPRESSION SCREENING (12+)] Future Scheduled 2021-07-19 Depression screening [facility] Test 00:00:00 (procedure) [code = Medical Branch 906395976] Future Scheduled 2021-05-25 INFLUENZA VACCINE [facility] Test 00:00:00 (Season Ended) [code = Medic al Branch INFLUENZA VACCINE (Season Ended)] Future Scheduled 2016 Screening for [facility] Test 00:00:00 malignant neoplasm of Medica l Branch lung (procedure) [code = 697047279] Future Scheduled 2015-06-[address] [facility] Test 00:00:00 WELLNESS (YEAR 2 or Medical Center FIRST YEAR if no IPPE) [code = MEDICARE ANNUAL WELLNESS (YEAR 2 or FIRST YEAR if no IPPE)] Future Scheduled 2015-06-[address] [...] Future Scheduled 2011 Screening for [facility] Test 00:00:00 blood in feces Medical Bran h (procedure) [code = 489184229] Future Scheduled 2011 Stool [facility] Test 00:00:00 colorectal cancer Medical Br anch screening (procedure) [code = 093586646043878] Future Scheduled 2011 Flexible fiberoptic [facility] Test 00:00:00 sigmoidoscopy Medical Branch (procedure) [code = 54881747] Future Scheduled 2011 Screening for [facility] Test 00:00:00 malignant neoplasm of Medica l Branch colon (procedure) [code = 273938155] Future Scheduled 2011 Screening for [facility] Test 00:00:00 malignant neoplasm of Medica l Branch colon (procedure) [code = 009353584] Future Scheduled [address] [facility] Test 00:00:00 Vaccine (SHINGRIX) (1 Medica l Branch of 2) [code = Zoster Recombinant Vaccine (SHINGRIX) (1 of 2)] Future Scheduled 2011 SHINGLES VACCINES ([address] [facility] Test 00:00:00 of 2) [code = SHINGLES Medic al Center VACCINES (1 of 2)] Future Scheduled 1980 DTAP/TDAP/TD VACCINES [facility] 00:00:00 (1 - Tdap) [code = Medical C enter DTAP/TDAP/TD VACCINES (1 - Tdap)] Future Scheduled 1980 DTaP,Tdap,and Td [facility] Test 00:00:00 Vaccines (1 - Tdap) Medical Branch [code = DTaP,Tdap,and Td Vaccines (1 - Tdap)] Future Scheduled 1980 DTAP/TDAP/TD VACCINES [facility] 00:00:00 (1 - Tdap) [code = Medical C enter DTAP/TDAP/TD VACCINES (1 - Tdap)] Future Scheduled 1979 HEPATITIS C SCREENING [facility] 00:00:00 [code = HEPATITIS C Medical Center SCREENING] Future Scheduled 1979 HEPATITIS C [facility]CRE[facility]ING [facility] 00:00:00 [code = HEPATITIS C Medical Center SCREENING] Future Scheduled [address] [facility] Test 00:00:00 0-64 YRS (1 - PCV) Medical C enter [code = PNEUMOCOCCAL VACCINE 0-64 YRS (1 - PCV)] Future Scheduled 1967 PNEUMOCOCCAL 0-64 [facility] Test 00:00:00 YEARS COMBINED SERIES Medica l Branch (1 of 1 - PPSV23) [code = PNEUMOCOCCAL 0-64 YEARS COMBINED SERIES (1 of 1 - PPSV23)] Future Scheduled [address] [facility] Test 00:00:00 0-64 YRS (1 - PCV) Medical C enter [code = PNEUMOCOCCAL VACCINE 0-64 YRS (1 - PCV)] Future Scheduled 1962-03-06 COVID-19 VACCINE (#1[facility] 00:00:00 [code = COVID-[address] VACCINE (#1)] Future Scheduled 1962-03-06 COVID-19 VACCINE (#1) [facility] 00:00:00 [code = COVID-[address] VACCINE (#1)] Future Scheduled [address] [facility] 00:00:00 (combo) [code = CT Medical C enter Colonography (combo)] Future Scheduled [address] [facility] Test 00:00:00 malignant neoplasm of Medica l Center colon (procedure) [code = 597465633] Future Scheduled [address] [facility] Test 00:00:00 malignant neoplasm of Medica l Center colon (procedure) [code = 601556457] Future Scheduled [address] [facility] Test 00:00:00 malignant neoplasm of Medica l Center colon (procedure) [code = 851998365] Future Scheduled [address] [facility] Test 00:00:00 malignant neoplasm of Medica l Center colon (procedure) [code = 819371439] Future Scheduled 1961 Sigmoidoscopy [code = [facility] Sigmoidoscopy] Medical Cente r Future Scheduled 1961 [facility] (procedure) [code = Medical Branch 468408301] Future Scheduled [address] [facility] Test 00:00:00 (combo) [code = CT Medical C enter Colonography (combo)] Future Scheduled [address] [facility] Test 00:00:00 malignant neoplasm of Medica l Center colon (procedure) [code = 810735340] Future Scheduled [address] [facility] [facility] Test 00:00:00 malignant neoplasm of Medica l Center colon (procedure) [code = 413570599] Future Scheduled [address] [facility] Test 00:00:00 malignant neoplasm of Medica l Center colon (procedure) [code = 782656447] Future Scheduled [address] [facility] Test 00:00:00 malignant neoplasm of Medica l Center colon (procedure) [code = 787996450] Future Scheduled 1961 Sigmoidoscopy [code [facility]oscopy[facility] Start End Encounter Admission Attending Care Care Encounter Source Date/Time Date/Time Type Type Clinicians Facility Department ID 2022-07-[address] [facility] [id number] [place] 16:18:45 [id number] [facility] 2022-07-[address] [facility] [id number] [place] 07:23:14 [id number] [facility] 2022-07-[address] [facility] [id number] [place] 12:22:05 [id number] [facility] 2021-07-25 Emergency [facility] [id number] Univers 02:36:54 [facility] 2022-07-18 2022-07-18 Outpatient CRISTIANO [facility] [id number] [place] 13:40:00 13:40:00 [facility] 2022-05-11 2022-05-18 Hospital ER Acosta Teague [facility] [id number] [facility] 21:30:00 13:21:00 [facility] 2022-05-11 2022-05-18 [facility] Acosta Teague [facility] [id number] [facility] 21:30:00 13:21:00 [facility] 2022-05-11 2022-05-18 Inpatient [place] [id number] [facility] 21:30:00 13:21:00 SUZIE Med 2022-05-13 2022-05-13 Surgery Vidhi [facility] [id number] 14:24:00 15:14:00 [facility] 2022-05-13 2022-05-13 Surgery Vidhi [facility] [id number] 14:24:00 15:14:00 [facility] 2022-05-13 2022-05-13 Anesthesia Leeann Frazieroine [facility] [id number] 09:56:00 10:39:00 Event Lety Mendez [facility] 2022-05-13 2022-05-13 Anesthesia Leeann Frazieroine [facility] [id number] 09:56:00 10:39:00 Event Lety Mendez [facility] 2022-05-12 2022-05-12 Outpatient [facility] [id number] [facility] 00:00:00 23:59:00 Ciera 2022-05-12 2022-05-12 Travel [facility] [id number] [facility] 00:00:00 00:00:00 [facility] 2022-05-12 2022-05-12 Travel [facility] [id number] [facility] 00:[facility]:00 00:00:00 [facility] 2022-05-11 2022-05-11 [facility] [id number] [facility] 21:30:00 23:59:00 Bimal Medicin e 2022-02-23 2022-02-23 Telephone [facility] [id number] Univers 00:00:00 00:00:00 Tamy PARDO 350.1.13.10 i ty [place] [id number] Ar dical [address] 2022-02-21 2022-02-21 Orders Doctor KIERA [id number] Univers 00:00:00 00:00:00 Only Unassigned, CALE 350.1.13.[address] [facility] 4.2.7.2.686 Darío as [id number] [address] 2022-02-15 2022-02-15 [facility] [id number] Univers 00:00:00 00:00:[address] [facility] 2022-02-15 2022-02-15 [facility] [id number] Univers 00:00:00 00:00:[address] [facility] 2022-02-09 2022-02-09 Telephone [facility] [id number] Univers 00:00:00 00:00:00 Tamy PARDO 350.1.13.10 i [place] [id number] Ar dical NAL [address] [place] [address] 2022-02-08 2022-02-08 Orders Doctor KIERA [id number] Univers 00:00:00 00:00:00 Only UnassignedCALE 350.1.13.[address] [facility] 4.2.7.2.686 Darío as [id number] [address] 2022-02-07 2022-02-07 Outpatient R SILVESTRE, [facility] [id number] Univers 16:15:00 16:15:[address] [facility] 2022-02-07 2022-02-07 Outpatient Naomy SILVESTRE [facility] [id number] Univers 13:45:00 15:08:[address] [facility] 2022-02-07 2022-02-07 [facility] [id number] Univers 13:45:00 15:08:28 Visit Tamy EDVIN 350.1.13.10 i ty [facility] [place] [id number] Ar dic[address] 2022-02-07 2022-02-07 Outpatient R SILVESTRE [facility] [id number] Univers 13:45:00 15:08:[address] [facility] 2021-11-02 2021-11-02 Orders Doctor KIERA [id number] Univers 00:00:00 00:00:00 Only Unassigned, CALE 350.1.13.[address] [facility] 4.2.7.2.686 Darío as [id number] [address] 2021-10-19 2021-10-19 Outpatient Naomy LORENZO [facility] [id number] Univers 10:20:00 10:20:00 BLAIR jerez [facility] 2021-10-11 2021-10-11 Video - Russ [facility] [id number] 14:00:00 14:15:00 Telemedici Sugey Farnsworth [facility] 2021-10-11 2021-10-11 Gifty Solano [facility] [id number] 14:00:00 14:15:00 Telemedici Sugey Farnsworth [facility] 2021-10-11 2021-10-11 Outpatient CARTER BRIONES [facility] [id number] [facility] 13:18:39 13:18:39 SUGEY 2021-10-11 2021-10-[address] [facility] [id number] [facility] 00:00:00 00:00:00 [facility] 2021-10-02 2021-10-04 Inpatient ER CARTER QUIROZ [facility] [id number] [facility] 12:35:00 14:04:00 [facility] 2021-10-02 2021-10-04 [facility] [id number] 12:35:00 14:04:00 Encounter Marcelina [facility] 2021-10-02 2021-10-04 [facility] [id number] 12:35:00 14:04:00 Encounter Marcelina [facility] 2021-10-04 2021-10-04 Anesthesia Laura [facility] [id number] 08:12:00 09:02:00 Obey [facility] 2021-10-04 2021-10-04 Anesthesia Laura [facility] [id number] 08:12:00 09:02:00 Obey [facility] 2021-10-04 2021-10-04 Surgery [facility], [facility] [id number] 08:00:00 09:00:00 [facility] 2021-10-04 2021-10-04 Surgery [facility], [facility] [id number] 08:00:00 09:00:00 [facility] 2021-10-03 2021-10-03 Outpatient [facility] [id number] [facility] 00:00:00 23:59:00 Ciera 2021-10-02 2021-10-02 Documentat Tonia [facility] [id number] 00:00:00 00:00:00 ion [facility] 2021-10-02 2021-10-02 Documentat Tonia [facility] [id number] [facility] St 00:00:00 00:00:00 [facility] 2021-08-10 2021-08-10 Telephone [facility] 1.2.840.114 [id number] Univers 00:00:00 00:00:00 Tamy EDVIN 350.1.13.10 i ty [place] [id number] Ar dical [address] 2021-08-04 2021-08-04 Outpatient [facility] [id number] Univers 14:54:13 23:59:[address] [facility] 2021-08-04 2021-08-04 [facility] 1.2.840.114 [id number] Univers 14:54:13 23:59:00 Encounter Tamy PARDO 350.1.13.10 it[place] [id number] [facility] [address] [place] 2021-08-04 2021-08-04 Orders Doctor KIERA 1.2.840.114 [id number] Univers 00:00:00 00:00:00 Only Unassigned, CALE 350.1.13.10 ity of [place] [facility] 4.2.7.2.686 [place] as [phone] [facility] [address] 2021-07-29 2021-07-29 Telephone [facility] 1.2.840.114 [id number] Univers 00:00:00 00:00:00 Tamy HERNANDEZSTEVEN 350.1.13.10 i ty [place] [phone] Ar dical NAL [address] [place] [address] 2021-06-06 2021-06-06 Outpatient R [facility] [id number] Univers 10:15:00 10:15:[address] [facility] 2021-05-27 2021-05-27 Outpatient R [facility] [id number] Univers 00:00:00 00:00:[address] [facility] 2021-05-25 2021-05-25 Orders Doctor KIERA 1.2.840.114 [id number] Univers 00:00:00 00:00:00 Only Unassigned, CALE 350.1.13.10 ity of [place] [facility] 4.2.7.2.686 [place] [phone] [address] 2021-05-19 2021-05-19 Office [facility] [id number] [facility] 14:42:06 16:05:39 Visit Tamy Edvin 350.1.13.10 i [place] [phone] [facility] 188 [facility] 2021-05-19 2021-05-19 Outpatient R KONRAD [facility] [id number] [facility] 14:30:00 16:05:[address] [facility] 2021-05-17 2021-05-17 Telephone [facility] [id number] Univers 00:00:00 00:00:00 Bliar [place]ton 350.1.13.10 it[phone] [place] [id number] [facility] 2021-05-17 2021-05-17 [facility] [id number] Univers 00:00:00 00:00:00 Blair Pardo 350.1.13.10 it[place] of [place] [phone] Ar dical nal 059 [facility] 2021-03-31 2021-03-31 Telephone [facility] 1.2.119.554 [id number] Univers 00:00:00 00:00:00 Qianaheedjun [place] 350.1.13.10 it[place] of [place] [phone] Ar dical nal 059 [facility] 2021-03-14 2021-03-14 Emergency Addison Ramirez [facility] 1.2.840. 114 [id number] Univers 13:23:00 16:01:00 Eleuterio Wang 3 [facility]1.13.10 [facility] 4.2.7.2.686 [facility] [phone] [facility] 084 [place] 2021-01-17 2021-01-17 [facility] [id number] Univers 14:00:00 14:00:00 BLAIR [place] o f [facility] 2021-01-13 2021-01-13 Orders Doctor KIERA 1.2.840.114 [id number] Univers 00:00:00 00:00:00 Only Unassigned, CALE 350.1.13.10 ity [place] [facility] 4.2.7.2.686 [place] [phone] [address] 2020-08-02 2020-08-02 Outpatient R SOLOMON [facility] [id number] Univers 08:00:00 08:00:[address] [facility] 2020-07-19 2020-07-19 Office [facility] 1.2.840.114 [id number] Univers 10:39:13 11:26:38 Visit Blair Pardo 350.1.13.10 [facility] 4.2.7.2.686 [facility] [phone] [place] 118059 [facility] 2020-07-19 2020-07-19 Outpatient [facility] [id number] Univers 11:00:00 11:00:00 [place]IR [place] [facility] 2020-07-19 2020-07-19 Orders Doctor QURESHI 1.2.840.114 [id number] Univers 00:00:00 00:00:00 Only UnassignedCALE 350.1.13.10 ity [place] [facility] 4.2.7.2.686 [place] [phone] [address] 2020-07-15 2020-07-15 Telephone [facility] [id number] [id number] Univers 00:00:00 00:00:00 Qiangjun [place] 350.1.13.10 it[place] of [place] [phone] Ar dicpa nal 9 [facility] 2020-07-15 2020-07-15 Telephone Argenis Carbajal 1.2.380.748 [id number] Univers 00:00:00 00:00:00 Sukhwinder [place] 350.1.13.10 it y of Hospital 4.2.7.2.686 [place] [phone] [facility] 039 [place] 2020-07-02 2020-07-02 [facility] [id number] [id number] Univers 00:00:00 00:00:00 Sukhwinder [place] 350.1.13.10 i [place] [phone] [address] 2020-06-01 2020-06-01 Office [facility] 1.2.840.114 [id number] Univers 13:36:20 14:19:54 Visit Sukhwinder [place] 350.1.13.10 i [place].2.[place] [phone] [address] 2020-06-01 2020-06-01 Outpatient R [facility] [id number] Univers 13:40:00 13:40:00 SUKHWINDER ity of [facility] 2020-06-01 2020-06-01 [facility] [id number] Univers 00:00:00 00:00:00 Sukhwinder [place] 350.1.13.10 i [place] [phone] [address] 2020-06-01 2020-06-01 Orders Doctor KIERA 1.2.840.114 [id number] Univers 00:00:00 00:00:00 Only Unassigned, CALE 350.1.13.10 ity of [place] [facility] 4.2.7.2.686 [place] [phone] [facility] 009 [place] 2020-05-14 2020-05-14 Outpatient R [facility] [id number] Univers 10:45:00 10:45:00 EILEEN jerez [facility] 2020-05-13 2020-05-13 Telephone [facility] 1.2.231.383 [id number] Univers 00:00:00 00:00:00 Qiangjun [place] 350.1.13.10 it[place] of [place]2.[place] [phone] Ar dic[address] 2020-05-09 2020-05-09 [facility] 1.2.508.127 [id number] Univers 00:00:00 00:00:00 Qiangjun [place] 350.1.13.10 it[place] of [place].2.[place] [phone] [facility] 059 [facility] 2020-04-23 2020-04-23 [facility] 1.2.277.032 [id number] Univers 00:00:00 00:00:00 Qiangjun [place] 350.1.13.10 it[place] of [place] [phone] [address] 2020-04-09 2020-04-09 Outpatient R [facility] [id number] Univers 10:00:00 10:00:00 EILEEN jerez [facility] 2020-03-26 2020-03-26 Orders Doctor QURESHI 1.2.840.114 [id number] Univers 00:00:00 00:00:00 Only Unassigned, CALE 350.1.13.10 ity of [place] [facility] 4.2.7.2.686 [place] [phone] [address] 2020-03-17 2020-03-17 Telephone [facility] 1.2.875.709 [id number] Univers 00:00:00 00:00:00 Qiangjun [place] 350.1.13.10 it[place] of [place] [phone] Ar dicpa nal [address] [place] [address] 2020-01-12 2020-03-14 [facility] [place] 1.2.840.114 [id number] Univers 08:28:45 20:11:05 ne Visit Blair Pardo 350.1.13.10 ity of [place].2.[place] [phone] Ar dicpa nal 9 [facility] 2020-03-12 2020-03-12 [employer], [facility] Vascular Room 1 [facility] 1.2.840.114 [id number] Univers 08:03:53 09:03:53 Visit Blair Lorenzo 350.1.13.10 ity of [place].2.[place] [phone] Ar dicpa nal [address] [place] [address] 2020-03-12 2020-03-12 [employer], [facility] Vascular Room [address] [place] [address] 1.2.840.114 [id number] Univers 08:03:04 09:03:04 Visit Blair Lorenzo 350.1.13.10 ity of [place].2.[place] [phone] Ar dicpa nal [address] [place] [address] 2020-03-12 2020-03-12 Outpatient R [facility] [id number] Univers 09:00:00 09:00:00 ity of [facility] 2020-03-12 2020-03-12 Outpatient R [facility] [id number] Univers 08:00:00 08:00:00 ity of [facility] 2020-03-09 2020-03-09 Laboratory Pc, [facility] Echo Room [address] [place] [address] 1 .2.840.114 [id number] Univers 09:57:31 10:57:31 Only Blair Lorenzo 350.1.13.10 ity of [place] 4[place]2.7.2.[place] [phone] Ar dicpa nal [address] [place] [address] 2020-03-09 2020-03-09 Outpatient R [facility] [id number] Univers 10:00:00 10:00:00 ity of [facility] 2020-01-12 2020-01-12 [facility] [id number] Univers 13:20:00 13:20:00 BLAIR ity o f [facility] Results Test Description Test Time Test Comments Results Result Comments Source [facility] 2022-05-18 05:19:44 Test Item Value Reference Range Interpretation Comme nts PHOSPHORUS (BEAKER) (test code = 604) 1.9 mg/dL 2.3-4.7 L Rubber Press Operator ID - ROGERIO [id number] 17:28:43 Test Item Value Reference Range Interpretation Comments PHOSPHORUS (BEAKER) (test code = 2.0 mg/dL 2.3-4.7 L 604) Rubber Press Operator ID - HARSH MTissue [id number] 17:26:26 Test Item Value Reference Range Interpretation Comments Case Report (test code Surgical Pathology = 104) Report Case: [id number] Authorizing Provider: Carson Mosher MD Collected: 05/13/2022 10:18 AM Ordering Location: [address] Received: 05/15/2022 07:38 AM Service Pathologist: Joanne Rubio MD Specimen: Biopsy, Gastric, gastric ulcer bx DIAGNOSIS (test code = [id number] 3220) FuZzEwMzNcZnRuYmpcdWMx IHtccnRmMVxlcGljOTYwMl xafzDpWJEnmGAfV7Pjwmga WQdxNT3aDB5muSzyxBGlgG LwCKVmEwTyg9rhd942mYTu f2reGGIJinlffHb3iXvtM1 7za7C9QcqqF29usDOjQSW2 FCJhDLHdaGCbEJNyTEJ6GO HrzWTuM2vnAVNdZQ7mpdqy JZxwHSunSBDidIA6VMVnzJ AwL6VkQBEmNXxyQYLoykv4 XyUaHi9dlJVdaLmxJBmrBH MuZLIjDXqgZSFwTiNpX1KP TUFDSCwgVUxDRVIsIEJJT1 XTDMhraJFwZDMnDU7qS7qY Q87NGxDCZaGFWAjIMUHHBY YSMopSTCFuQ5jGAOXZQEGA BLwMBRVCEOJYE3UnnHIrIL FgOE8oDx6tKJ7LODWWQW0P LPLECOIWCKwKN0bYLW5DLF YRC6TRPJVGSNecMZOjXOLy LSBOTyBERUZJTklUSVZFIE kYOSmCO6SMH2EKZhEETXvC YtizSVzNRq8GDzlIObuNGZ BJREVOVElGSUVEIEJZIElN MJGRJ5UFJWtGFDAofwhmIQ IkU3CepXsmxUObWCBcQCDb kw36NWX8EsAhp1R0WFE9OU IfGOSsy2fiWSKtcABdKrHr MzNcZnRuYmpcdWMxXGRlZm Qle6uqf560hYHcn0ozXHOh RuO5vWGlTFLjgDXqF030EW JeYYyxf6iaf7MpTLCesHVs j1Y9DCMKkbppiRj2aLscR8 2xg1A4LwzgS6lqRMVzOEAb A9YtTK7eLUGnTvp9GLA0VJ X0DAWqVZRzU2InPZ3cBSMw mVXgFKz9v4bdfYpbBSOjEA L1b0mzMPyaknTcLB2nqz2x uNk7r7wupoQmFUYtPZPiiM CBQBDzM8BodWxnWy6opYg9 tHdfBtwfXMA1Qda7XQ7vxu 41yer8bLjiMCNzuqpsQjI2 MJvqNSIzopgiSZh4QYbfOZ NcgYU0UKWppMJlC2MhETYd RQ2tqfm8CYF5PWvuLBZnTe L1PJEajUCtKQEmeLzfSBef n806HVD4PaUrSQ8oK9Vpw5 K0zM2tsJKpMWYejDJsUlMf JRAerp0bxFVcRGsgf3FsHW F6oyI6eIEmzYErJIIiLsE3 CScbUD4cof72YXDlQKW9if 5ybGNccGdicmRyaGVhZFxw S5JxXFGzq547GDUqI8HyBA Hle8H4yiQiXbXhIWCkoKE1 fgW5QWDeUK3xjbdzv1xxQM dfKAehNFFuftE1loI7JOWw rFXmR7WexL0cPXQkRE9ols nrx8cbLSQ7OVryLTPlWZO4 DsBgHQHir5Mbgig0DtVnh7 YksOWdJZfeY00tm497BHQs puMmU3kmsNKvrrgknDElmm cxFEthorJ0PQDsPWhjdwug ZDGoELodC7jxTrSfBDIgqT fdFSpgw0LnCFGuHQUyYkTs pVZvVXWnMvn6JDOyrZAgGQ TtQbOdT1gntiukSiHTGMWu f0jjY2kifGXSvGEfO2UyHG hvbmUgTGluZTogNzEzLTc5 ZP26MVy4ZCCaxe57 CPT Code(s) (test code b5ocfLTkPUGnjXO6ZsItVP = 3357) Ofa6gcb0QndXUscCTuGWig bAWncbMbzc38bVA2uS83KB 4lGYNvHxK7SLSvxqY8Ncf7 JBInCAJhvBRiS651y7azp0 ofblJccHP1wKhbXAPtdhck VbA0XVhlZSWwydmsORd4OX csJPYgaRS1JWGhyILxW2Eg TVIdZM7dtrv9ZYU0XOozWM PbReG4WXPddYUjDCMxaByf MWuna748TCS1TwIbFBOogn YgaLrgyW5zAzRjXUB8CFSj BTP1NIzjNPotSEJxjLCrgJ == CLINICAL HISTORY (test p4meqGInHOWawWK9GiHeZJ code = 3356) Shc6tun0PgbLMaxGFvRLua yGGcygRsbh67oOQ4xW57NX 9zEKGbGdE8UXIwpoF3Yyk0 KMMuUQHrzEWhS846e8ynv3 xyogYggCN4zJjpDADidptt XgT5KMaaMQWbwquhCWn6DN jwUMAcxGO5LLOqpTDjU6Xw VPNpMN0nbhm0BUY9ROteTO CfLyO8NZAtgVKsECGjxQsw OKumk334GOO7ZzUhNGLatq VpwXbqnI3mZxIyFMGCGES5 mh6sraCvt8BuflXlVRifpE 8fcxodA6RrlWRxeO== GROSS DESCRIPTION (test c1ysnWQrIFOwwNWTDVEzS0 code = [id number]) hwrfEbMNElvDBgF6Hhjaec XOmvQV6dDN9aiTadqJAjiR ZgXK9ARHFbPnSpMPKnwTLz muXfIbVbFFEooYWvlKA6SH LaMU9aascqQNygVBbnVETj iwK1YWDgjFYhR0OdMTVgWP 7uzjohIQH9SBwshB0nexEH CbanTp4yhEBuxCquYxCkUi NoYXJzZXQwXGZuaWwgQXJp DHq7rX8VOmdbQ63mv0Z9Yq h1UFYfRRRgW9IaYR1uMSFj wLIdR93LMtomJNO8LBVPWm qwJNRkKO8En1nwDKQooIVc YOR8WXqryPJrZAQmVLLnEE u1MLKkTHsonFBkGL1nwSnu XobbuUftt7DlpXCcUUgsGT LlWLMmFVhxWGGoWV8FYsDk PTClCBRhPoypRHp5IJd9JK 3UXuRkJIVcUQe7QXJ5RNDz UGq0OCxiCP0RCHNqByo4Kh JtZTX1DQE8SUWpNXBmNbCm XGYgQXJpYWwgXFxmbCBcXG 8ooTtskWExyxCDCiYNpR8y f3yuYJrvg1QwgXYzMVFnng ANClxlcGljTmVzdERvYzEg DQpcbHRycGFyXGxpbjBccm luMCANClxsdHJjaFxjZjFc ZnMyMCBSZWNlaXZlZCBpbi Mlb0SoZUrsvsBhZQBdwFDy IHdpdGggdGhlIHBhdGllbn DrE9V8wkWyOR8jAVQfPINy O7UfLNAvT47yRUZvxW9kPM XdHL6aFFp8EXUlHPOuHnwv C4FimAMrKfJcmU4wa0qyOM PvRHR8JBIacrIxw1P5JXCv t7F7EYQdsvXdcEMqtBAnGO ExbMDlCNWjqRMcxwmzOM0a QHGdGHN2Jy8ykIZvCSBmnk T6e8IoSSlnEIDhDgjsOMWf YAgniQZyER2KF4chpQKrWQ XQtyJ6yyeeVOtUJCBUBYRm QVNDUCljbVxwYXIgDQpccG IaMD8ZRDYeNZzusjGgGD5K USIxISmyIDJioHHFLFR2FS 2mDXchmSAawmnjJRYwC7Lc W4ElwsSrvMTaIDRmsoMhk1 igQCA8SIHklQYxbRUcKoOh WcauANZ8LCtgu5keAVJ5CP NsbXVsdDAgDQpcZnMxNntc KWBxV0EeF0PfcxP5ICp6 MICROSCOPIC DESCRIPTION j7oauYPhIAXqzBM8ZmRnKM (test code = 3371) Jtj3daf3CgxZVuyNIjNYwe lDJzpnAzmo14jRB5jL39EP 1mQDPyTeB6MPCunlL5Bgi3 DTGdKJMhvQZzD816h1zjf3 rsojHqcHD3yRocXZIadnko JoY3NAjbBYIoihfvGVj2MT gbLRKcbUS1JTHlqQMlN3Vy BPNtZY7ufhq7AMR0XMgyQX HsFqG4XTXkyXNfOCQfbApt CWobl201IUY8LvNvUOEblx BrkCjzrD0wUdJiEVQFPWIw c9FpVAUrNPCpqc0= SPECIAL STUDIES (test m4mvuRJeHDCxqBL3XsNcGL code = 3376) Ksl3cvu3RgyQLviYXlJRqh dWFiumQkfj72uFY0yM68IY 6nAXGjBoE6MLTpznC8Kxi8 AHEiVUFolACsB968JWYrIB InkKelkqq4vZ57ILNowH3s dGJsIDtccmVkMFxncmVlbj HaPuc4GBI6sZejBNLazfxt NcP6VVwyOVLmemxjZXi3FP xvAVGsuSN2GWQowHOyD2Wn UKLrQA9armj3SRA0RSrtRJ QaDpX7QXGimEKeVJHlaGex IVhgl917SDT1QyCcFDTlwj RnwDeguC0kXrYeFkBsOgkl ZjEgVGhlIGludGVycHJldG Y9fF3aPO9pVXFucZQbL1Xk XSCikzFimTOjHNK1vYJdpK FsBV7dUKwklVXuh2mnx7Zd P6tgiEbopJQ0PQ0jHEAwSO VmLMyzg7UcoA5aHikyKAEt hFSmQGYlHXMHQFkVI17VBF BSGHKzWYmUG3GZLU5BE2NP J5UZBS8XX80sIO5pGyEIAX HBHbDuyZUfUHHdhsBzN8Aq CIRqleBCc081yj0cAYRwoG SissSEiWLnsP2pJTwbLPvt SFwvkHRxGYrbs6osKKGye9 w6bJUgJKUidpWai3hfHMxm cmUgZXZhbHVhdGVkIGFsb2 9mADaswWjkyKvlEBBnr9Yd cXrvy6ElNeMfHZkps1OeT0 9udHJvbCBzbGlkZXMgcnVu EPBcf45ba5gjSDDnZgJ5cR AwoMD3xWAmbENgo1CprTiy XJJwd9bjMKZvmb4yxxlweX Wjx5OiqZ0nuxqqFNcdjGXq yzLvQGMss5z4hNRcEZAuNW WrELcfiGq0WVEty703mf7z tyS1lGGsOQN1YBjpGHGfTU BhcmUgZXZhbHVhdGVkXHBh dxFrBZOrhtEIjU17kg3zpD I2s4EeGN3fz7JiyRH8EKBu parnSRtwsXXizGdyHeM6LH XzvHMeIf1wiMEmUFN2ALQe iCqaibKFtJ2fBWNrQDe7NP CjUyTqNmxztrSSPUIyW7Sy KNKzooCzjivrJJU6cG1sl2 v6ZGesBn9hSSFxfabhe0rf wpDdgUJwy9KpRNGlsiYpr3 BlZCBhbmQgaXRzIHBlcmZv sy8lkqLeFDJfAEWcC3Rday bnnTljioI0IWWhYTEmlWCe eChoEOMbZVf0LUwoadHkq2 BnJePhluUtdUBokdNrOH5k LHCjoZXoweRxHFF9KDRqHY EYJfRrKFCwp2FvZJ6vDHIa nIdkSABstB8bo0UrIAAwc9 4uIFRoZSBGREEgaGFzIGRl dGVybWluZWQgdGhhdCBzdW WyHWCcOUKyKQ2aVKHnlpMg yAIgb8KvlFGxcmLda8Slxz GqKQRnRVS0GxKCeZGfeCWm zVMcqrX2s1YmWNSvooIdpE lywDTxuDWisLIpj4Diyk7w CEVhe2sdqNuoUB2gyMSnEO ByZWdhcmRlZCBhcyBpbnZl m9YzD4I9vH3cGDeji9NpRc 9zWKTyl4FaibXdIaMVfEff IGqoAg1zTTHfefxlaYKfL6 VydGlmaWVkIHVuZGVyIHRo ZSBDbGluaWNhbCBMYWJvcm D9n7Q7GRtxxFRbuzHpJN85 YCEeWQ0biZIrcQYxg1IxQN f5MCHfH2fGCP28ALqeMEJv cXVhbGlmaWVkIHRvIHBlcm Nyce3baZntnXBkz58cvJM5 cQZ5GVAtxD4sM1OhIGbzIl 4pZHGrwgndwISqxWrbXe8f cGFyfQ== [facility] 17:26:26 Test Item Value Reference Range Interpretation Comments Case Report (test code Surgical Pathology = 104) Report Case: [id number] Authorizing Provider: Carson Mosher MD Collected: 05/13/2022 10:18 AM Ordering Location: [address] Received: 05/15/2022 07:38 AM Service Pathologist: Joanne Rubio MD Specimen: Biopsy, Gastric, gastric ulcer bx DIAGNOSIS (test code = [id number] 3220) FuZzEwMzNcZnRuYmpcdWMx IHtccnRmMVxlcGljOTYwMl lcroOiQNNqsLWgP6Tszmfw JQudBS0oXQ2kgQoozQAxiH QjEAOcGiTwq2yno189yRLz v3xpPRCZitpjsPz1bCbxR9 8kt7U1KxkmK17auJKiUXE7 WUUiYYZtqNJoCJSlAKU1ZF KwlDOnJ4rbNGCxYB9jozys CDxmIJteIBJwdGF8IOAxoZ FoR1VrVGPzOXthULImppp1 WrXnPk0jaMGmjVxvQKfwZB CuZCIpPLyxSTOaUzOnB3YJ TUFDSCwgVUxDRVIsIEJJT1 USGFwwcNTyUBSuQU2oF2zD A86SIdQSZyOSSBrOGPQGFD UOPqkXRYKzH1jNNEYNVOJV OBrQPNCYGIGFB2CspBQwCD JqXE4lYr9lPF1STJZOKH7F FVWANRPFUFfXP7rDDK7QMR OZS7CYXDAKTQixMNPsNHDj LSBOTyBERUZJTklUSVZFIE cMAIoEG5TPT8QYZoQYAPwW LjbzAVuAJh7QHvvKKesSDB BJREVOVElGSUVEIEJZIElN PQXYI9NMKYhJAQSqcskoNB CrV2JjfFugwXMyMNQiOYIx fh55SGB2QjQmk2I7STA5BX BnEXVwr6npFLOalJXnYzXo MzNcZnRuYmpcdWMxXGRlZm Uvh0jbk304dGDmt0wbSAFl DeP5hWSiNSAuxOVcW090AW VzERjyp9hgx0ReGHLgoKCh j7D7SGPJtcxazKi0eNjuP5 6gq0W5IiykZ3mqKQTgEHJu S8GnVA6yQUOzRzl7VNF9RA G3GIFjUOJmL1CtOP0jXESo eMTzXRf2o1irwZwhTAZoJC T2x8nfKNjpqgEvCC7goa6m wPw9v3hdhkRzVPBlRQIcjY COIUBxM7LboNopTb7bkId5 eUayYwiuWYL9Jtk8UN0wci 57cin4hChxRJVgsmeuIqI7 CSeqFXYgglgaNKg8CRxbDQ IaaQO0BZYfcIVyD4CbFGFl CH2bush2UMZ0HKnpAFQeNj V4BOGrzKQtBKUndFwnKHns e351XBV9SwAvKB4hZ4Wdy4 I4dF6biEXkFOJydABiKmIo QUZsoy9pfFAcDNkrs3VrYA I8eqV1wKMcqTYaRWGmWoZ8 JXbeKI7xma25ADTkMHV7ay 5ybGNccGdicmRyaGVhZFxw P4BlXBIha910DHIvY5PnXE Dpt1I2giZmRzQcRPCojCI9 xxQ2MZYkSH6ngzbcn1gcGR acMKbxCYGesvG1lhQ0CGMa rKLkK3GpcA3gGRJjZX5yva bky5eqZOU3WGsxOITmDYE6 BkYbORNsp4Xxfut6JcXhn9 QhpXZbKLhzX39ru085CEHd pfDvO3lhvTGgviqixKPfpl gkLGqxtmP2ZTRrXYqgzguo XXFaLRzfG9khDuDhBFVtqU xeQFfpk3UfJHXfOENyTyFa iEWnNLWnPae3SBJgaGQhSU FgGcPqO5glcnsaQuRETYZk j5znA8qllIMIfWFkT3JeGQ hvbmUgTGluZTogNzEzLTc5 XM94CYz4CXTodj96 CPT Code(s) (test code b8qxoFIcOXIodTL7UiTtHL = 9837) Scm9fgn8PtdRFtvQLqIFdw fCQdspBcvw63tWO8eF43TG 6rPCCaHmL6CIOekvF9Uuv8 TDFuNUFmkGEoM862j1sur3 frwuBchIG0cBkfPOIwkzwf PzI4AXmuVGZafkjnATf5IM ibNKEunZT0OJAnxSNaN3Xd HBTaOM9xomv8RIF0OJdtUC EgHjM4RAOmfYDjQMVzsGwh ODuch647XXC2TwBsKDMmom ZvcBxkiV6bPlItTSC2NRXn JDY7IGrfIAngOGDkhQSgbV == CLINICAL HISTORY (test r6trjTIkRMUzmLP8TeHsMT code = 3356) Ilc2dlp6WopNJuvZQwZTmc pDMhxnIlgb70bHM6mL08OS 1bAUBmIgM5ADOmftO3Flc1 OVSpBMCawZIwC774f6zco0 ukfvTfgMA9lRsoOTHqvpko SsB9RRdtTQDafcxoQXb7TN giVIIfrGG0DZAroXQkZ4Rr FCEvBB1gzfs2KAO5TRxlJI JiGkX0PZJfpABuMWTigNmn FUktn862ZCW3VxTbPAVsyp QtpXjhrO9bFuVnLKIUIEO0 lo3ugwJrn8ObejUkCPsoxX 7chjgqY4AtzPYbbV== GROSS DESCRIPTION (test u4rkhZDiUDTsjUNJNGXmS5 code = 6629820215) qukjMzSSOvcFInN4Gwkebb ISzmFY7xAT7lmGekzUYdtK WfTF9CVGVwDrMtHOKqlOUp roByJnYuBXGjuCBtxVE1JX TjQX8uhsgyTYlkAXqvMSIl thN8YJKciVRlG7MlTVWtWX 2lynaqVYD3YMocwZ2oyhTY SgamCv8raMFviUksXvSoLn NoYXJzZXQwXGZuaWwgQXJp AAn4jD6KWaexC45vy9E9Fx x0MSIiDTQgI3GbJR8uCLEo tFDhS39PNuffRBV6FHCNIb bnXGZrFR2Sx1eeTAGjkVGb TZS7BNzpjRPeUQVsPTOgTU o8KPKaSWtycUCeOU9slKyr SnddoXgox7AjxMRbCHtxDI ZnMPNoCMilODZyRS3YOsIb FLXoUZAwKnedMOk8LQo1RE 0WXqHzQWRrKNy4IKO5DBJl DBh2IMmcGL7ZXHTkRmj4Tv CjSRV2TLR2LNJcPBYgBnCx XGYgQXJpYWwgXFxmbCBcXG 9unJuvsRIluuHMAbJTnD4n o1asPBmjb6KzaQXaBRQieh ANClxlcGljTmVzdERvYzEg DQpcbHRycGFyXGxpbjBccm luMCANClxsdHJjaFxjZjFc ZnMyMCBSZWNlaXZlZCBpbi Wsn8AdEQpaccBcIAUkdCVk IHdpdGggdGhlIHBhdGllbn QkG5M5luRyAH3hWOBmIEOi U3GfXRSqR65iRFEegQ9zTN WbRI2eCWl8ZVYlJKYrOogc F9WkwLIwVmVhyK0yx0zdZY XbPZS3ZNNbblYrd8O6DUKj v1P2CFTqwiUxgZIxjNIhUB UtgGEcTADfvQVkayeaZT5g UUQuASB5Ng6wgHKuAOWxia U3n9FwLAlrRWZfXaupDLRq KWfxfRScDY0UN9mmnDCnMZ WZodL8vdsdKBiVKVHDNCQq QVNDUCljbVxwYXIgDQpccG NcVB7RSNYjHXalfwXlRP5B UVPpIXjmNCKzzWHXOMT9XE 8cCLhvmRHywqgySOAzX7Wd P7GwdoPsrUHiULRznxIqm8 psUYD0CHZeyLFeaZYyFmRx IeoeLOH8ZAooa7foXBK1PP NsbXVsdDAgDQpcZnMxNntc NXJuF9EiH8WelzM7QUd4 MICROSCOPIC DESCRIPTION n8chbIAyOSFurFS3VpZfYG (test code = 3371) Dtc3ttz6UixXNfpAKuJVbn eUQatcZbrv78rLX8rA94IX 2uEIWmErT4HMQtefM5Zej5 QOFlYUJtnSCeR616f6jzk2 usojCozQZ7kMniZVKpjjkf FaP6KIzhMLVoskemBXo3GX vzGGVkqNX9YCWayUIcE3Uu BTLvFP0iylc2IKO2ZUsyEG CwAfC4QFThgBKpHYLlcBft JTvmr068VVF3UkUoPFVtps TwlIygcD7sHaDfZWENIGHa v2DmYMJnEHBwct7= SPECIAL STUDIES (test g1ftcONuNYNptKN3ZbLzAB code = 3379) Pqz5ivv7XkwDKziZVkUIsf iNDzdwFofp42iKC0tI75CC 6cAMDoEyF7DDJrrzK2Fik5 HPRnLEFeoWGoB026ZPXtGK QyaSopbnf3gA62PBKelW1r dGJsIDtccmVkMFxncmVlbj OhLhx3OYB7hWbqKOTaahki VlG8IBwaHFIhbbjjZHo4YE baKGFeqKD6OIHwmDRkV7Zi QUClZR6paoe9BEN9ZKwrHK AuPtU9NEEiuRDoSSMfoQqd AAwwo530JNT8YsJbHLPoxp JwiFogkL0bXxMqWjTqVzui ZjEgVGhlIGludGVycHJldG L3uM1nOQ5rUCYosDGyH4Dw CSLragMulTWiNMD0hVSjuK NwLE7jOCckfQOob6fol7Oe J6dudGnfgVI7EP3nPDUmIA WmROnfb7BhgD9jEvtuWBKn dGZwPCNoQYMQCLuDO02PSS TOKRCqNHaJK5LOCI2RH7AY B1PJBV8EB17rGP5eSkSBFJ WGGoZzuZMfFCZnbaKtW3So LLCxrdOWm937kh1xZDHdoE RnylBSvESuuB8rEQkdMZsw OXuckNYgARoub5ycYEFif1 l8fQFlNRDimfVco9fdUPdx cmUgZXZhbHVhdGVkIGFsb2 7sGKpgxMmoaNzgCGNvq4Cg lOftp1NjPhRdZKavd1CbY6 9udHJvbCBzbGlkZXMgcnVu FGZhn36gu4boSLWcBdD7eJ RmdHC6eDAzeTTkt0DsgZxb TFOjg2pkRBQhlv9zxdpsmX Ywi8LfyC8vyyfrVHajpDRi foRmBQNqc2l5iKVcHAKtZT DcRCswmGm5ULAkm212sa5e pmA9tFNePZM5NErgFNSxLZ BhcmUgZXZhbHVhdGVkXHBh anIhKHGfyhXStB05aa5zaJ C2i0WsIY4nn7LorGG7VZGc nslkDEneqIUryNbiRnX3IE YrxYUcGl3zgJRhRUM3AJMa vCiaxpMYdR7fFVXkNSx1NC IoBsFnXymjcxMFSEQdG4Hm AAFgtfAidlnsCDP7pC7si8 t5IXizOl1qCYMakldpw9em bmBgyQSun3FkAZCqhaLex7 BlZCBhbmQgaXRzIHBlcmZv hm5bbcXhSVYlQQTtI0Ukyb tzbUwrwsC6OISbLZOboHUn lBcwOUPtSGw1TQcyelXyb7 DuNkIkyiKrbXScvgIxRL5t NZGobTPpyzBaHHK6WTOvLO MWPrPzEHVrt8RoTL9xFIBa bSgkXMGpoL1pl6VnEHNsj8 4uIFRoZSBGREEgaGFzIGRl dGVybWluZWQgdGhhdCBzdW SiPSKbCUNaYO2uTPMcujPg uWVyf9PzjQRmwvMtt4Dani SaNDIhJRS1DpKRtTQzwQFv fKDsadM5i6CwCAXbzlNyfO nxmTMvxJWgpVLfo3Qhjl6g CCLvg8lfeViiKA9icBVuJX ByZWdhcmRlZCBhcyBpbnZl p3TfE9V0oW8sFSbih4EeDq 7oZGRpy8BmkcFmWlFXbThs BCipXi5yZUIryrlluBWlY6 VydGlmaWVkIHVuZGVyIHRo ZSBDbGluaWNhbCBMYWJvcm P1z2W8VOsnjAAkycAwTC42 TLJgRB8ayUSnhVFnu7LtQL k9UKEuE7aMJY59SGbhHLJz cXVhbGlmaWVkIHRvIHBlcm Vmyk2amKcgrHWxb86pcOF8 vAQ4YKJiaR9jT9WoCMdmFi 5oHKDxpgzjmLCriIvdMk8g cGFyfQ== [id number] 17:26:26Surgical Pathology Report Case: [id number] Authorizing Provider: Carson Mosher MD Collected: 05/13/2022 10:18 AM Ordering Location: [address] Received: 05/15/2022 07:38 AM Service Pathologist: Joanne Rubio MD Specimen: Biopsy, Gastric, gastric ulcer bx STOMACH, ULCER, BIOPSY: - CHRONIC INACTIVE GASTRITIS WITH REACTIVE CHANGE - NO INTESTINAL METAPLASIA OR DYSPLASIA - NO DEFINITIVE HELICOBACTER PYLORI MICROORGANISM IDENTIFIED BY IMMUNOSTAINCC/pl Signing Pathologist Direct Phone Line: [phone] signed by Joanne Rubio MD on 05/17/2022 at 5:26 [id number] x1; [id number] hemorrhageA. Biopsy, Gastric.Received in formalin labeled with the patient's name, medical record nu mber and "gastric biopsy" are 4 worley soft tissue fragments each measuring 0.3 cm submitted in toto inA1.HANG Kim, TRISTAN (ASCP)cmPerformed The interpretation of this case included the use of immunohistochemistry or special stains.HELICOBACTER PYLORI MICROORGANISM--- NEGATIVEControl Slides Examined: In- house known positive controls were evaluated along with the test tissue. These control slides run alongside of the patients sample show appropriate staining. Internal positive and negative controls when available are evaluated Immunohistochemistry technical testing was performed at [facility], Pathology Laboratory where it was developed and [...] code = 1.5 mg/dL 2.3-4.7 LL 604) [employer] Operator ID - HARSH MVITAMIN D, [id number] 04:50:55 Test Item Value Reference Range Interpretation Comments VITAMIN D 25-OH (BEAKER) (test 21.2 ng/mL 6.6-49.9 code = 2764) Effective 07/04/2017: Reference Range ChangeNew: 6.6-49.9 ng/mL Previous: 13.0- 47.8 ng/mLRecommendedVitamin D Target Range: 30.0-40.0 ng/mLOperator ID - HARSH M BASIC METABOLIC [id number] 04:42:29 Test Item Value Reference Range Interpretation [...] (test code = 697) EGFR (BEAKER) 107 Interpretatio n of eGFR (test code = [...] not appl icable for dialysis patien ts [employer] Operator ID - HARSH [id number] 04:41:33 Test Item Value Reference Range Interpretation Comments MAGNESIUM (BEAKER) (test code = 1.6 mg/dL 1.6-2.6 627) [employer] Operator ID - HARSH [id number] 15:45:36 Test Item Value Reference Range Interpretation Comments PHOSPHORUS (BEAKER) (test code = 1.4 mg/dL 2.3-4.7 LL 604) [employer] Operator ID - CHERIE BPTH, [id number] 15:40:39 Test Item Value Reference Range Interpretation Comments PARATHYROID HORMONE INTACT 187.3 pg/mL 8.5-72.5 H (BEAKER) (test code = 577) [employer] Operator ID - CHERIE BOperator ID - [id number] 15:23:15 Test Item Value Reference Range Interpretation Comments PROLACTIN (BEAKER) (test code = 15.91 ng/mL 3.46-19.40 758) [employer] Operator ID - CHERIE BBASIC METABOLIC [id number] 15:17:34 Test Item Value Reference Range Interpretation [...] not appl icable for dialysis patien ts [employer] Operator ID - CHERIE [id number] 15:11:52 Test Item Value Reference Range Interpretation Comments MAGNESIUM (BEAKER) (test code = 1.8 mg/dL 1.6-2.6 627) Rubber Press Operator ID - CHERIE BCALCIUM, [id number] 14:51:01 Test Item Value Reference Range Interpretation Comments CALCIUM IONIZED (BEAKER) (test 1.12 mmol/L 1.12-1.27 code = 698) PH, BLOOD (BEAKER) (test code = 7.32 1810) CBC W/PLT COUNT & AUTO [id number] 14:45:58 Test Item Value Reference Range Interpretation [...] 0-1 PERCENT (BEAKER) (test code = 2801) [id number] 12:56:32 Test Item Value Reference Range Interpretation Comments RPR SCREEN (BEAKER) (test code = Nonreactive Nonreactive 420) [id number] 05:36:37 Test Item Value Reference Range Interpretation Comments PHOSPHORUS (BEAKER) (test code = 1.8 mg/dL 2.3-4.7 L 604) Rubber Press Operator ID - PIAYA LBASIC METABOLIC [id number] 05:36:36 Test Item Value Reference Range Interpretation [...] 30-44 G4 Severl y decreased 15-29 G5 Kidne y failure <15Reported eGF R is based on the CKD-EPI 2020 equation that d oes not use a race coefficientEsti mated GFR is not as accur ate as Creatinine Larisa jono in predicting glom erular filtration rate . Estimated GFR is not appl icable for dialysis patien ts Rub[employer] Operator ID - ROGERIO [id number] 05:36:36 Test Item Value Reference Range Interpretation Comments MAGNESIUM (BEAKER) (test code = 1.8 mg/dL 1.6-2.6 627) Rubber Press Operator ID - ROGERIO LCBC W/PLT COUNT & AUTO [id number] 05:15:35 Test Item Value Reference Range Interpretation [...] = 2801) CBC W/PLT COUNT & AUTO [id number] 17:55:49 Test Item Value Reference Range Interpretation [...] PERCENT (BEAKER) (test code = 2801) CT, [id number] 13:15:00Unlisted Reason for Exam - Click Yes and Enter Reason Below->YesUnlisted Reason for Exam->C/f malignancyIs this for enterography?->NoWill this procedure require oral contrast?->No [facility] 1960 Sex: MFINAL [...] right common iliac art chintan. Signed: Gwendolyn Ball [facility] Center[facility] Verified Date/Time: 05/14/2022 13:15:06 VITAMIN [id number] 08:04:57 Test Item Value Reference Range Interpretation Comments VITAMIN B12 (BEAKER) (test code = 915 pg/mL 213-816 H 774) Rubber Press Operator ID - ROGERIO [id number] 06:22:28 Test Item Value Reference Range Interpretation Comments MAGNESIUM (BEAKER) (test code = 1.4 mg/dL 1.6-2.6 L 627) Rubber Press Operator ID - ROGERIO [id number] 06:22:28 Test Item Value Reference Range Interpretation Comments PHOSPHORUS (BEAKER) (test code = 1.9 mg/dL 2.3-4.7 L 604) Rubber Press Operator ID - ROGERIO LBASIC METABOLIC [id number] 06:22:27 Test Item Value Reference Range Interpretation [...] not appl icable for dialysis patien ts Rubber Press Operator ID - PIAYA LCBC W/PLT COUNT & AUTO [id number] 06:18:19 Test Item Value Reference Range Interpretation [...] code = 2801) HIV-1 ANTIGEN WITH HIV-1/2 [id number] 05:54:48 Test Item Value Reference Range Interpretation Comments HIV-1 ANTIGEN WITH HIV 1\\T\\2 Nonreactive Nonreactive ANTIBODY (2) (BEAKER) (test code = 2586) Rubber Press Operator ID - PIDARLING LUND, TIBC, % SAT. (WITHOUT FERRITIN)2022-05-14 05:31:23 Test Item Value Reference Range Interpretation Comments IRON (BEAKER) (test code = 547) 17.0 ug/dL 40.0-160.0 L TOTAL IRON BINDING CAPACITY 211 ug/dL 250-450 L (BEAKER) (test code = 769) IRON % SATURATION (2) (BEAKER) 8 % 20-55 L (test code = 2590) Rubber Press Operator ID - PIDARLING LCBC W/PLT COUNT & AUTO [id number] 20:55:39 Test Item Value Reference Range Interpretation [...] H PERCENT (BEAKER) (test code = 2801) 2D Echo W/Doppler(CW/PW/Color)2022-05-13 09:11:15Ejection FractionSLEH ECHO HEARTLAB [facility] W/Doppler(CW/PW/Color)2022-05-13 09:11:15Ejection FractionSLEH ECHO HEARTLAB [facility] HospitalPT/[id number] 04:07:11 Test Item Value Reference Range Interpretation [...] mechanical heart valves.CBC W/PLT COUNT & AUTO [id number] 03:56:56 Test Item Value Reference Range Interpretation [...] PERCENT (BEAKER) (test code = 2801) C-REACTIVE [id number] 15:38:49 Test Item Value Reference Range Interpretation Comments C-REACTIVE PROTEIN (BEAKER) (test 6.76 mg/dL 0.00-0.50 H code = 676) Rubber Press Operator ID - BSLACTIC ACID, [id number] 11:15:35 Test Item Value Reference Range Interpretation Comments LACTATE BLOOD VENOUS 0.93 mmol/L 0.50-2.20 Specime n slightly (2) (BEAKER) (test hemolyzed code = 7275) Rubber Press Operator ID - HARSH MCBC W/PLT COUNT & AUTO [id number] 11:03:13 Test Item Value Reference Range Interpretation [...] 0-1 PERCENT (BEAKER) (test code = 2801) [id number] 03:30:48 Test Item Value Reference Range Interpretation [...] 22.5-36.0 (BEAKER) (test code = 760) PROTHROMBIN TIME/[id number] 03:21:06 Test Item Value Reference Range Interpretation Comments PROTIME (BEAKER) 14.6 seconds 11.9-14.2 H (test code = 759) INR (BEAKER) (test 1.22 See_Comment [Automat ed message] code = 370) The system [employer] generated this result transmitted ref erence range: [...] not appl icable for dialysis patien ts Rubber Press Operator ID - HARSH MB-TYPE NATRIURETIC FACTOR (BNP)2022-05-12 03:06:25 Test Item Value Reference Range Interpretation Comments B-TYPE NATRIURETIC PEPTIDE (BEAKER) 207 pg/mL 0-100 H (test code = 700) Rubber [employer] Operator ID - ROGERIO LHIGH SENSITIVITY TROPONIN [id number] 03:06:06 Test Item Value Reference Range Interpretation Comments HIGH SENSITIVITY 7 pg/ml See_Comment [Automated message] TROPONIN I (test code = The system which 1085643) generated this result transmitted ref erence range: <=35. Th e reference range was not used to interpr et this result as normal/abnormal . Rubber Press Operator ID - ROGERIO LThe RADIUS GRINDER STAT High Sensitivity Troponin-I results should be used in conjunction with other diagnostic information such as ECG, clinical observations and information, and patient symptoms to aid in the diagnosis of TX.LACTIC ACID, [id number] 02:55:43 Test Item Value Reference Range Interpretation Comments LACTATE BLOOD VENOUS (2) (BEAKER) 0.71 mmol/L 0.50-2.20 (test code = 2872) Rubber [employer] Operator ID - PIAYA LCBC W/PLT COUNT & AUTO [id number] 02:29:40 Test Item Value Reference Range Interpretation [...] = 2801) RAD, CHEST, 1 VIEW, NON [id number] 01:40:00Reason for exam:->sobShould this be performed at the bedside?->Yes [facility] 1960 Sex: MFINAL [...] Impression: No acute abnormality. Signed: Willy Coates Verified Date/Time: 05/12/2022 01:40:05 TISSUE EXAM 2021-10-11 08:38:26Surgical Pathology Report Case: [id number] Authorizing Provider: Keiry Bello MD Collected:10/04/2021 08:30 AM Ordering Location: [address] Received: 10/04/2021 12:15 PM Service P athologist: Tres Burch MD Specimen: Gastric, GASTRIC ULCERS BIOPSY STOMACH, ULCERS, BIOPSY:- CHRONIC ACTIVE GASTRITIS WITH EXTENSIVE ULCERATION AND GRANULATION TISSUE - NO DYSPLASIA OR CARCINOMA PRESENT - NEGATIVE FOR HELICOBACTER, HSV or CMV (IMMUNOSTAINS) Signing Pathologist Direct Phone Line: [phone] signed by Tres Burch MD on 10/11/2021 at 8:38 [id number], [id number], [id number] x 4Iron deficiency anemiaGastricReceived in formalin labeled [...] clinical suspicion for carcinoma is high. Dr. Soanli Courtney reviewed the case and agreed with the diagnosis. The interpretation of this case included the use of immunohistochemistry or special stains.Control Slides Examined: In-house known positive controls were evaluated alongwith the test tissue. These control slides run alongside of the patients sample show appropriate staining. Internal positive and negative controls when available are evaluated Immunohistochemistry technical testing was performed at [facility], Pathology Laboratory where it was developed and its performance characteristics were determined. It has not been cleared or approved by the U.S. Food and Drug Administration. The FDA has determined that such clearance or approval is not necessary. The test is used for clinical purposes. It should not be regarded as investigational or forresearch. This laboratory is certified under the Clinical Laboratory Improvement Amendments of 1988 (CLIA-88) as qualified to perform high complexity clinical laboratory testing.[facility], Department of Pathology, [address] [place] [address], [facility], [address] [place] [address], [facility], [address] [place] [address], GUERU, [id number] 06:59:00 Test Item Value Reference Range Interpretation Comments ABO Grouping (test code = 2588) A Rh Factor (test code = 2589) [facility], [id number] 06:59:00 Test Item Value Reference Range Interpretation Comments ABO Grouping (test code = 2588) A Rh Factor (test code = 2589) [facility] HospitalMAGNESIUM2022-01-11 04:30:23 Test Item Value Reference Range Interpretation Comments MAGNESIUM (BEAKER) (test code = 1.8 mg/dL 1.6-2.6 627) Rubber Press Operator ID - HARSH [id number] 04:30:23 Test Item Value Reference Range Interpretation Comments PHOSPHORUS (BEAKER) (test code = 3.2 mg/dL 2.3-4.7 604) Rubber Press Operator ID - HARSH MCOMPREHENSIVE METABOLIC [id number] 04:30:22 Test Item Value Reference Range Interpretation [...] S NOT APPLICABLE FOR DIALYSIS PATIEN TS. Rubber Press Operator ID - HARSH MCBC W/PLT COUNT & AUTO [id number] 04:06:08 Test Item Value Reference Range Interpretation [...] PERCENT (BEAKER) (test code = 2801) CT, [id number] 18:57:00Unlisted Reason for Exam - Click Yes and Enter Reason Below->YesUnlisted Reason for Exam->abd pain, N/V, OSH CT with gastric thickeningIs this for enterography?->NoWill this procedure require o ral contrast?->No [facility] 1960 Sex: MFINAL [...] MDReport Verified Date/Time: 10/03/2021 18:57:32 Reading Location: [facility] B1 C013Y CT Body Reading Room Peripheral Blood Smear - Path [id number] 14:14:07 Test Item Value Reference Range Interpretation Comments RBC Morphology See comment Hypochromic, (test code = normocytic anem ia 2846) with moderate anisocytosis an d mild poikilocytosis, including rare to occasional elliptocytes an d acanthocytes. R are schistocytes identified. Minimal polychromasia. WBC Morphology See comment Normal in num julius. (test code = No significant 2847) deviations from normal WBCs subtype proportions. Lymphocytes wit h few reactive an d rare atypical forms. No immat ure WBCs identified . Platelet No ClumpingNo Adequate in nu mber Morphology (test SatellitosisSee with nor mal code = 2848) comment granular morphology. Occasional larg e and rare giant forms identifie d. Pathologist: Jaden Mayen MD (test code = (electronic 2849) signature) [facility] Center[facility] Sm[facility] - Path [id number] 14:14:07 Test Item Value Reference Range Interpretation Comments RBC Morphology See comment Hypochromic, (test code = normocytic anem ia 2846) with moderate anisocytosis an d mild poikilocytosis, including rare to occasional elliptocytes an d acanthocytes. R are schistocytes identified. Minimal polychromasia. WBC Morphology See comment Normal in num julius. (test code = No significant 2847) deviations from normal WBCs subtype proportions. Lymphocytes wit h few reactive an d rare atypical forms. No immat ure WBCs identified . Platelet No ClumpingNo Adequate in nu mber Morphology (test SatellitosisSee with nor mal code = 2848) comment granular morphology. Occasional larg e and rare giant forms identifie d. Pathologist: Jaden Mayen MD (test code = (electronic 2849) signature) [facility] CenterPERIPHERAL BLOOD SMEAR - PATHOLOGIST [id number] 14:14:07 Test Item Value Reference Range Interpretation [...] MORPHOLOGY No Satellitosis (BEAKER) (test code = 791181) PLT MORPHOLOGY See comment Adequate in n umber (BEAKER) (test with normal code = 904109) granular morphology. Occasional larg e and rare giant forms identifie d. [facility]-PATHOLOGIST- Jaden Mayen MD 6112 (BEAKER) (electronic (test code = signature) 2849) 2D Echo W/Doppler(CW/PW/Color)2021-10-03 11:14:47Ejection FractionSLEH ECHO HEARTLAB [facility] Echo W/Doppler(CW/PW/Color)2021-10-03 11:14:47Ejection FractionSLEH ECHO HEARTLAB [facility] HospitalHemoglobin [id number] 09:56:08 Test Item Value Reference Range Interpretation [...] ADM Lab Interpretation Abnormal (test code = 16035-3) [facility] CenterHemoglobin [id number] 09:56:08 Test Item Value Reference Range Interpretation [...] ADM Lab Interpretation Abnormal (test code = 47996-2) [facility] CenterHEMOGLOBIN [id number] 09:56:08 Test Item Value Reference Range Interpretation Comments HEMOGLOBIN A1C 5.8 % See_Comment H [Automated [employer] essage] ELECTROPHORESIS (FRANKLYN) The system which (test code = 3811) generated this result transmitted ref erence range: <=5.6%. The reference range was not used to int erpret this result as normal/abnormal . "The A1c is measured using a NGSP-certified method. HbA1c value equal to or greater than 6.5% as thediagnosis cutoff for diabetes. An HbA1c value of 5.7- 6.4% indicates increased risk for diabetes (prediabetes)."Rubber Press Operator ID - ADM SARS-CoV2/RT-PCR (Asymptomatic ONLY)2021-10-03 09:18:48 Test Item Value Reference Range Interpretation Comments SARS-COV2/RT-PCR Negative Not Detected, (test code = Negative, See 29430-3) external report for linked test SARS-COV-2 [facility] PERFORMING LAB (test code = 13577-7) PETRA (test code = Negative result for [...] of the Act. Fact Sheet for Healthcare Providers:https://www.[employer]/sites/default/f roc/product/documents/F act_Sheet_HC_Providers_L kol_JURV-XyZ-3.pdf Fact Sheet for Healthcare Patients:https://www.[employer]/sites/default/fi les/product/documents/Fa ct_Sheet_Patients_Lyra_S ARS-CoV-2.pdf Performing Laboratory:[facility], [place] [address] [place], [place] [address]ARS-CoV2/RT-PCR (Asymptomatic ONLY)2021-10-03 09:18:48 Test Item Value Reference Range Interpretation Comments SARS-COV2/RT-PCR Negative Not Detected, (test code = Negative, See 84285-3) external report for linked test SARS-COV-2 [facility] PERFORM[facility] (test code = 00430-3) PETRA (test code = Negative result for [...] of the Act. Fact Sheet for Healthcare Providers:https://www.[employer]/sites/default/f roc/product/documents/F act_Sheet_HC_Providers_L dgv_EXVB-NiY-9.pdf Fact Sheet for Healthcare Patients:https://www.[employer]/sites/default/fi les/product/documents/Fa ct_Sheet_Patients_Lyra_S ARS-CoV-2.pdf Performing Laboratory:[facility], [place] [address] [place], [place] [address]ARS-COV2/RT-PCR ([facility])2021-10-03 09:18:48 Test Item Value Reference Range Interpretation Comments SARS-COV2/RT-PCR (test Negative Not Detected, Negative, code = 1840372) See external report for linked test SARS-COV-[address] [facility] (test code = 4035802) Negative result for this test determines that [...] of the Act.Fact Sheet for Healthcare Prov iders:https://www.[employer]/sites/default/files/product/documents/Fact_Sheet_HC _Dfbpgrqzr_Xsou_ZMYA-JoN-6.pdfFact Sheet for Healthcare Patients:https://www.[employer]/sites/default/files/product/docume nts/Kfpq_Mksab_Pfqhsljp_Zuds_ZGVT-XhX-3.pdfPerforming Laboratory:[facility] [place], [place] [address]jude TreviñoGila [facility] [place] [address]Gpvgm [id number] 05:18:14 Test Item Value Reference Range Interpretation Comments Triglycerides (test 78 mg/dL code = 2571-8) Cholesterol (test code 89 mg/dL = 2092-) HDL (test code = 26 mg/dL 2085-05) LDL Calculated (test 47 mg/dL code = 34239-5) PETRA (test code = PETRA) Triglyceride Reference Range: Low Risk <150 Borderline 150-199 High Risk 200-499 Very High Risk >=500 Cholesterol Reference Range: Low Risk <200 Borderline 200-239 High Risk >240 HDL Cholesterol Reference Range: Low Risk >=60 High Risk <40 LDL Cholesterol Reference Range: Optimal <100 Near Optimal 100-129 Borderline 130-159 High 160-189 Very High >=190 Rubber Press Operator ID - DB [facility] CenterLipid [id number] 05:18:14 Test Item Value Reference Range Interpretation Comments Triglycerides (test 78 mg/dL code = 2571-8) Cholesterol (test code 89 mg/dL = 3-3) HDL (test code = 26 mg/dL 2085-9) LDL Calculated (test 47 mg/dL code = 25660-3) PETRA (test code = PETRA) Triglyceride Reference Range: Low Risk <150 Borderline 150-199 High Risk 200-499 Very High Risk >=500 Cholesterol Reference Range: Low Risk <200 Borderline 200-239 High Risk >240 HDL Cholesterol Reference Range: Low Risk >=60 High Risk <40 LDL Cholesterol Reference Range: Optimal <100 Near Optimal 100-129 Borderline 130-159 High 160-189 Very High >=190 Rubber Press Operator ID - [facility] HospitalCxbxecGVNWERBXZB7745-03-21 05:18:14 Test Item Value Reference Range Interpretation Comments PHOSPHORUS (BEAKER) (test code = 3.5 mg/dL 2.3-4.7 604) Rubber [employer] Operator ID - DBLIPID [id number] 05:18:14 Test Item Value Reference Range Interpretation [...] Borderline 130-159 High 160-189 Very High >=190 Rubber Press Operator ID - DBCOMPREHENSIVE METABOLIC [id number] 05:18:13 Test Item Value Reference Range Interpretation [...] S NOT APPLICABLE FOR DIALYSIS PATIEN TS. Rubber Press Operator ID - [id number] 05:18:13 Test Item Value Reference Range Interpretation Comments MAGNESIUM (BEAKER) (test code = 1.9 mg/dL 1.6-2.6 627) Rubber Press Operator ID - DBCBC W/PLT COUNT & AUTO [id number] 04:51:38 Test Item Value Reference Range Interpretation [...] code = 2801) Urinalysis with Microscopic If [id number] 01:04:25 Test Item Value Reference Range Interpretation Comments Color, UA (test code = Light Yellow 5778-6) Clarity, UA (test code = Clear 5767-9) Specific Grady, UA 1.014 1.001-1.035 (test code = 5811-5) pH, UA (test code = 6.5 5.0-8.0 5803-2) Protein, UA (test code = Negative Negative 90325-0) Glucose, UA (test code = Negative Negative 365) Ketones, UA (test code = Negative Negative 2514-8) Bilirubin, UA (test code Negative Negative = 89560-7) Blood, UA (test code = Negative Negative 64078-4) Nitrite, UA (test code = Negative Negative 5802-4) Leukocytes, UA (test Negative Negative code = 5799-2) Urobilinogen, UA (test 0.2 mg/dL 0.2-1.0 code = 58542-4) Specimen Source (test code = 2795) PETRA (test code = PETRA) Rubber Press Operator ID - [auto] [facility] CenterUrinalysis with Microscopic If [id number] 01:04:25 Test Item Value Reference Range Interpretation Comments Color, UA (test code = Light Yellow 5778-6) Clarity, UA (test code = Clear 5767-9) Specific Grady, UA 1.014 1.001-1.035 (test code = 5811-5) pH, UA (test code = 6.5 5.0-8.0 5803-2) Protein, UA (test code = Negative Negative 84516-2) Glucose, UA (test code = Negative Negative 365) Ketones, UA (test code = Negative Negative 2514-8) Bilirubin, UA (test code Negative Negative = 57766-4) Blood, UA (test code = Negative Negative 20967-1) Nitrite, UA (test code = Negative Negative 5802-4) Leukocytes, UA (test Negative Negative code = 5799-2) Urobilinogen, UA (test 0.2 mg/dL 0.2-1.0 code = 10352-1) Specimen Source (test code = 2795) PETRA (test code = PETRA) Rubber Press Operator ID - [auto] [facility] CenterURINALYSIS WITH MICROSCOPIC IF [id number] 01:04:25 Test Item Value Reference Range Interpretation [...] = 463) SOURCE(BEAKER) (test code = 2795) Rubber Press Operator ID - [auto]T4, [id number] 18:31:54 Test Item Value Reference Range Interpretation Comments Free T4 (test code = 3024-7) 0.77 ng/dL 0.70-1.48 PETRA (test code = PETRA) Rubber Press Operator ID - DB Lab Interpretation (test Normal code = 22087-5) [facility]4, [id number] 18:31:54 Test Item Value Reference Range Interpretation Comments Free T4 (test code = 3024-7) 0.77 ng/dL 0.70-1.48 PETRA (test code = PETRA) Rubber Press Operator ID - DB Lab Interpretation (test Normal code = 85263-4) [place] [address], [id number] 18:31:54 Test Item Value Reference Range Interpretation Comments FREE T4 (BEAKER) (test code = 655) 0.77 ng/dL 0.70-1.48 Rubber Press Operator ID - DBIRON, TIBC, % SAT. (WITHOUT FERRITIN)2021-10-02 18:16:14 Test Item Value Reference Range Interpretation Comments IRON (BEAKER) (test code = 547) 25.0 ug/dL 40.0-160.0 L TOTAL IRON BINDING CAPACITY 443 ug/dL 250-450 (BEAKER) (test code = 769) IRON % SATURATION (2) (BEAKER) 6 % 20-55 L (test code = 2590) Rubber Press Operator ID - BENI GOperator ID - DBRAD, ABDOMEN/KUB, 1 VIEW [id number] 18:02:00Reason for exam:->acute abdominal pain [facility] 1960 Sex: MFINAL REPORT EXAM: RAD, ABDOMEN/KUB, [...] MDReport Verified Date/Time: 10/02/2021 18:02:37 Reading Location: [address] Reading Room [id number] 17:37:07 Test Item Value Reference Range Interpretation Comments Lipase (test code = 20 U/L 3040-3) PETRA (test code = PETRA) Rubber Press Operator ID - BENI G Lab Interpretation (test Normal code = 75395-6) [facility] CenterLipase2022-01-09 17:37:07 Test Item Value Reference Range Interpretation Comments Lipase (test code = 20 U/L 3040-3) PETRA (test code = PETRA) Rubber Press Operator ID - BENI G Lab Interpretation (test Normal code = 23887-4) [facility] CenterLIPASE2022-01-09 17:37:07 Test Item Value Reference Range Interpretation Comments LIPASE (BEAKER) (test code = 749) 20 U/L Rubber Press Operator ID - BENI GTSH/Free T4 If [id number] 17:05:20 Test Item Value Reference Range Interpretation Comments TSH (test code = 6.668 See_Comment H [Automated 99823-0) message] The system which generated this result transmit thanh reference range : 0.350 - 4.940 uIU/mL. The reference range was not used to interpret this result as normal/abnormal . PETRA (test code = PETRA) Rubber Press Operator ID - BENI G Lab Interpretation Abnormal (test code = 65886-1) [facility] CenterTSH/Free T4 If [id number] 17:05:20 Test Item Value Reference Range Interpretation Comments TSH (test code = 6.668 See_Comment H [Automated 72735-3) message] The system which generated this result transmit thanh reference range : 0.350 - 4.940 uIU/mL. The reference range was not used to interpret this result as normal/abnormal . PETRA (test code = PETRA) Rubber Press Operator ID - BENI Servin Lab Interpretation Abnormal (test code = 36749-9) [facility] CenterTS/FREE T4 IF [id number] 17:05:20 Test Item Value Reference Range Interpretation Comments THYROID STIMULATING HORMONE 6.668 uIU/mL 0.350-4.940 H (BEAKER) (test code = 772) Rubber [employer] Operator ID - BENI TOVARitamin B12 and Mwslbo6837-95-15 16:52:36 Test Item Value Reference Range Interpretation Comments Vitamin B12 (test 515 pg/mL 213-816 code = 2132-9) Folate (test code = 8.50 ng/mL See_Comment [Automa thanh 2284-8) message] The system which generated this result transmit thanh reference range : >=7.00. The reference range was not used to interpret this result as normal/abnormal . PETRA (test code = PETRA) Rubber [employer] Operator ID - BENI G Lab Interpretation Normal (test code = 52558-3) [facility] CenterVitamin B12 and [id number] 16:52:36 Test Item Value Reference Range Interpretation Comments Vitamin B12 (test 515 pg/mL 213-816 code = 2132-9) Folate (test code = 8.50 ng/mL See_Comment [Automa thanh 2284-8) message] The system which generated this result transmit thanh reference range : >=7.00. The reference range was not used to interpret this result as normal/abnormal . PETRA (test code = PETRA) Rubber Press Operator ID - BENI G Lab Interpretation Normal (test code = 12116-6) [facility] Center[facility]IT[facility] B12 AND [id number] 16:52:36 Test Item Value Reference Range Interpretation Comments VITAMIN B12 (BEAKER) 515 pg/mL 213-816 (test code = 774) FOLATE (BEAKER) 8.50 ng/mL See_Comment [Automated message] (test code = 362) The system which generated this result transmitted ref erence range: >=7.00. The reference range was not used to interpr et this result as normal/abnormal . Rubber Press Operator ID - BENI [id number] 16:52:35 Test Item Value Reference Range Interpretation Comments Ferritin (test code = 5.19 ng/mL 5.00-275.00 2276-4) PETRA (test code = PETRA) Rubber Press Operator ID - BENI G Lab Interpretation (test Normal code = 45718-0) [facility] 16:52:35 Test Item Value Reference Range Interpretation Comments Ferritin (test code = 5.19 ng/mL 5.00-275.00 2276-4) PETRA (test code = PETRA) Rubber Press Operator ID - BENI G Lab Interpretation (test Normal code = 78523-1) [facility] CenterFERRITIN2022-[facility]-09 16:52:35 Test Item Value Reference Range Interpretation Comments FERRITIN (BEAKER) (test code = 5.19 ng/mL 5.00-275.00 361) Rubber Press Operator ID - BENI GB-TYPE NATRIURETIC FACTOR (BNP)2021-10-02 16:22:12 Test Item Value Reference Range Interpretation Comments B-TYPE NATRIURETIC PEPTIDE (BEAKER) 72 pg/mL 0-100 (test code = 700) Rubber Press Operator ID - BENI GHIGH SENSITIVITY TROPONIN [id number] 16:21:50 Test Item Value Reference Range Interpretation Comments HIGH SENSITIVITY 8 pg/ml See_Comment [Automated message] TROPONIN I (test code = The system which [id number]) generated this result transmitted ref erence range: <=35. Th e reference range was not used to interpr et this result as normal/abnormal . Rubber Press Operator ID - BENI GThe RADIUS GRINDER STAT High Sensitivity Troponin-I results should be used in conjunction with other diagnostic information such as ECG, clinical observations and information, and patient symptoms to aid in the diagnosis of [place].COMPREHENSIVE METABOLIC [id number] 16:19:32 Test Item Value Reference Range Interpretation [...] S NOT APPLICABLE FOR DIALYSIS PATIEN TS. Rubber Press Operator ID - BENI [id number] 16:19:32 Test Item Value Reference Range Interpretation Comments MAGNESIUM (BEAKER) (test code = 2.0 mg/dL 1.6-2.6 627) Rubber Press Operator ID - BENI [id number] 16:19:32 Test Item Value Reference Range Interpretation Comments PHOSPHORUS (BEAKER) (test code = 3.4 mg/dL 2.3-4.7 604) Rubber Press Operator ID - BENI GLACTIC ACID, [id number] 16:12:09 Test Item Value Reference Range Interpretation Comments LACTATE BLOOD VENOUS (2) (BEAKER) 0.50 mmol/L 0.50-2.20 (test code = 2872) Rubber Press Operator ID - BENI GPROTHROMBIN TIME/[id number] 15:53:06 Test Item Value Reference Range Interpretation Comments PROTIME (BEAKER) 14.4 seconds 11.9-14.2 H (test code = 759) INR (BEAKER) (test 1.14 See_Comment [Automat ed message] code = 370) The system [employer] generated this result transmitted ref erence range: <=5.90. The reference range was not used to int erpret this result as normal/abnormal . RECOMMENDED COUMADIN/WARFARIN INR THERAPY RANGESSTANDARD DOSE: 2.0 - 3.0 Includes: PROPHYLAXIS for venous thrombosis, systemic embolization; TREATMENT for venous thrombosis and/or pulmonary embolus.HIGH RISK: Target INR is 2.5-3.5 for patients with mechanical heart valves.Reticulocyte [id number] 15:35:19 Test Item Value Reference Range Interpretation Comments % Retic (test code = 1.4 % 0.5-1.8 88202-5) PETRA (test code = PETRA) Rubber Press Operator ID - [id number] Lab Interpretation (test Normal code = 71318-1) [facility] CenterReticulocyte [id number] 15:35:19 Test Item Value Reference Range Interpretation Comments % Retic (test code = 1.4 % 0.5-1.8 14723-9) PETRA (test code = PETRA) Rubber Press Operator ID - [id number] Lab Interpretation (test Normal code = 41934-7) [facility] CenterRETICULOCYTE [id number] 15:35:19 Test Item Value Reference Range Interpretation Comments RETICULOCYTE COUNT PCT (BEAKER) (test 1.4 % 0.5-1.8 code = 575) Rubber Press Operator ID - [id number] W/PLT COUNT & AUTO [id number] 15:35:19 Test Item Value Reference Range Interpretation [...] = 2801) RAD, CHEST, 1 VIEW, NON [id number] 15:26:00Reason for exam:->aicd shockShould this be performed at the bedside?->Yes [facility] : 1960 Sex: MFINAL REPORT RAD, CHEST, 1 VIEW, NON DEPT TECHNIQUE: Frontal view(s) of the chest. INDICATION: AICD shock COMPARISON: 05/08/2016 FINDINGS/IMPRESSION: Lines/Tubes: A dual-lead pacemaker/AICD Lungs/pleura: The left lateral costophrenic sulcus is excluded from obeee-gg-ivrx. A linear opacity in the lateral right lower lobe is probably a scar. The lungs are otherwise clear and well inflated. No visible pleural effusion. No pneumothorax. Heart and Mediastinum: Unremarkable. Soft Tissues and Bones: Unremarkable. Signed: Padmini Hdez Verified Date/Time: 10/02/2021 15:26:50 Reading Location: [address] Ortho Consult Reading Room [facility] METABOLIC [id number] 12:34:00 Test Item Value Reference Range Interpretation [...] RECOLLECTION NEEDED ON 12/19/18 AT 1151 BY Z.LAB.[id number]: HEMOLYZEDNOTIFIED PATIENT CARE STAFF:[id number] 12:34:00 Test Item Value Reference Range Interpretation Comments MAGNESIUM (test code = MAG) 1.8 MG/DL 1.6-2.3 N RECOLLECTION NEEDED ON 12/19/18 AT 1151 BY Z.[id number]: HEMOLYZEDNOTIFIED PATIENT CARE STAFF:DAVIDTPROTHROMBIN [id number] 12:10:00 Test Item Value Reference Range Interpretation [...] - 3.0 2. Prophylaxis, deep venous thrombosis, hi p surgery, treatm ent for deep venous thrombosis or pulmonary prevention of systemic emboli sm in patients wit h valvular heart disease, atrial fibrillation, tissue heart va lve, or acute myocar dial infarction. 2.0 - 3.0 3. Ornamental Plaster Sticker al prosthesis hear t valves, recurre nt systemic emboli sm. 3.0 - 4.5 PTT [id number] 12:10:00 Test Item Value Reference Range Interpretation Comments PTT ACTIVATED (test code = APTT) 25.7 SECONDS 22.0-33.0 N CBC W/AUTO [id number] 11:41:00 Test Item Value Reference Range Interpretation [...]
--- NOTE | 2022-07-19 14:50 | RAD REPORT ---
EXAM DESCRIPTION: CT - CTHCSPWOC - 07/19/2022 2:39 pm CLINICAL HISTORY: fall COMPARISON: Head C Spine Mpr Wo Con dated 01/16/2022 TECHNIQUE: Axial 5 mm thick images of the head were obtained. Axial 2 mm thick images of the cervic al spine were obtained with sagittal and coronal reconstruction images generated and reviewed. All CT scans are performed using dose optimization technique as appropriate and may include automated exposure control or mA/KV adjustment according to patient size. FINDINGS: No intracranial hemorrhage, mass, edema or acute intracranial finding. No suspicion for ac [place] infarction. No extra-axial fluid collections. Mastoid air cells and paranasal sinuses are clear. No globe or orbit abnormality seen. Intracranial findings are similar to the December 2021 study. Cervical body height and alignment are normal. No disk space narrowing. No fracture or acute bony abn ormality. Central canal detail is inherently limited. No paraspinal mass or hematoma. IMPRESSION: Negative CT head examination for acute or significant finding. Negative CT cervical spine examination for acute or significant finding.
[2022-07-19 15:32] LABS: Absolute Lymphocytes (CBC) 1.3 K/uL (0.7-4.9); Hematocrit 29.7 % (39.6-49.0); Lymphocytes % 7.9 % (15.3-44.8); MCV 76.1 fL (80-100); MPV 7.3 fL (7.6-11.3); RBC Red Blood Cell Count 3.89 M/uL (4.33-5.43)
[2022-07-19 15:42] LABS: Platelet Estimate INCR; White Blood Cell Scan OK (OK)
[2022-07-19 15:43] LABS: Anisocytosis 2+; Blood Morphology Comment NOTED (NOT SEEN); Platelets, Giant PRESENT
[2022-07-19 16:03] LABS: Albumin 2.2 g/dL (3.4-5.0); Bilirubin Total 0.3 mg/dL (0.2-1.0); Potassium 3.5 mmol/L (3.5-5.1); Protein, Total 6.3 g/dL (6.4-8.2)
--- NOTE | 2022-07-19 16:56 | EDPHYS ---
Physician Documentation [facility] Name: Alexander Bowman Age: 61 yrs Sex: Male : 1960 Arrival Date: 07/19/2022 Time: 14:22 Bed 15 Private MD: ED Physician Mikhail Aceves HPI: 07/19 14:25 This 61 yrs old Male presents to ER via Unassigned with complaints of abdominal pain. ms3 14:25 The patient presents with abdominal pain in the epigastric area. Onset: The ms3 symptoms/episode began/occurred yesterday. The symptoms do not radiate. Associated signs and symptoms: Pertinent positives: chest pain. The symptoms are described as sharp. Modifying factors: The symptoms are alleviated by nothing, the symptoms are aggravated by nothing. Severity of pain: At its worst the pain was severe in the emergency department the pain is unchanged. Historical: - Allergies: 14:29 Aspirin; ap3 14:29 Codeine; ap3 14:29 Ibuprofen; ap3 14:29 Levofloxacin; ap3 14:29 mycins; ap3 14:29 PENICILLINS; ap3 14:29 Sulfa (Sulfonamide Antibiotics); ap3 14:29 Tylenol-Codeine #3; ap3 - PMHx: 14:29 Anxiety; COPD; Hypertension; Myocardial infarction; Pneumonia; Pneumothorax; ap3 - PSHx: 14:29 18" bowel removal; Stented artery; ap3 - Immunization history:: Client reports having NOT received the Covid vaccine. - Social history:: Smoking status: Patient denies any tobacco usage or history of. ROS: 14:25 Constitutional: Negative for fever, and chills. Neck: Negative for injury, pain, and ms3 swelling, Cardiovascular: Negative for chest pain, and palpitations. Respiratory: Negative for shortness of breath, cough, wheezing, and pleuritic chest pain. 14:25 Skin: Negative for injury, rash, and discoloration. 14:25 Abdomen/GI: Positive for abdominal pain. 14:25 All other systems are negative. Exam: 14:25 Constitutional: This is a well developed, well nourished patient who is awake, alert, ms3 and in no acute distress. Head/Face: Normocephalic, atraumatic. Neck: Trachea midline, no cervical lymphadenopathy. Supple, full range of motion without nuchal rigidity, or vertebral point tenderness. No Meningismus. Chest/axilla: Normal chest wall appearance and motion. Nontender with no deformity. Cardiovascular: Regular rate and rhythm with a normal S1 and S2. No gallops, murmurs, or rubs. Normal PMI, no JVD. No pulse deficits. Respiratory: Lungs have equal breath sounds bilaterally, clear to auscultation and percussion. No rales, rhonchi or wheezes noted. No increased work of breathing, no retractions or nasal flaring. 14:25 Skin: Warm, dry with normal turgor. Normal color with no rashes, no lesions, and no evidence of cellulitis. 14:25 Abdomen/GI: Inspection: abdomen appears normal, Bowel sounds: normal, Palpation: moderate abdominal tenderness, in all quadrants. Vital Signs: 14:26 BP 123 / 86; Pulse 85; Resp 17; Temp 98.7; Pulse Ox 97% ; Weight 91.63 kg; Height 6 ft. ap3 (182.88 cm); Pain 10/10; 16:18 BP 126 / 84; Pulse 89; Pulse Ox 99% on R/A; ap3 19:15 BP 108 / 68; Pulse 81; Resp 18; Pulse Ox 97% on R/A; jb4 20:30 BP 110 / 80; Pulse 77; Resp 16; Pulse Ox 99% on R/A; jb4 14:26 Body Mass Index 27.40 (91.63 kg, 182.88 cm) ap3 NIH Stroke Scale Scores: 17:26 NIHSS Score: 3 ms3 MDM: 14:34 Patient medically screened. ms3 16:01 ED course: Patient with headache. Discussed 1 gm Tylenol with patient and Tylenol ms3 ordered. Patient stated to RN he cannot have Tylenol 2/2 his ulcer.. 17:31 ED course: Discussed case with Dr Arias and patient would be best served by ms3 transferring to [place] for higher level of care. Unable to preform MRI at [facility].. 21:18 Data reviewed: vital signs, nurses notes, and as a result, I will transfer patient. ms3 Counseling: I had a detailed discussion with the patient and/or guardian regarding: the historical points, exam findings, and any diagnostic results supporting the discharge/admit diagnosis, lab results, radiology results, the need to transfer to another facility, for higher level of care. 21:20 ED course: Discussed case with neuro fellow at [facility] and he accepts ms3 patient. Patient transferred to [facility] at patient's request. . 07/19 14:23 Order name: CBC with Diff; Complete Time: 16:54 ms3 07/19 14:23 Order name: CMP; Complete Time: 16:54 ms3 07/19 14:23 Order name: Lipase; Complete Time: 16:54 ms3 07/19 14:23 Order name: Urine Microscopic Only; Complete Time: 18:53 ms3 07/19 14:23 Order name: UDS; Complete Time: 18:53 ms3 07/19 15:44 Order name: CBC Smear Scan; Complete Time: 16:54 EDMS 07/19 14:23 Order name: IV Saline Lock; Complete Time: 17:46 ms3 07/19 14:23 Order name: Labs collected and sent; Complete Time: 15:35 ms3 07/19 14:23 Order name: Urine Dipstick-Ancillary (obtain specimen); Complete Time: 17:46 ms3 07/19 14:23 Order name: CT Head C Spine ms3 07/19 14:28 Order name: Head C Spine Mpr Wo Con; Complete Time: 15:28 EDMS 07/19 17:08 Order name: SARS-COV-2 Antigen Rapid; Complete Time: 18:53 bd 07/19 17:35 Order name: Troponin High Sensitivity ms3 07/19 17:45 Order name: Urine Dipstick-Ancillary; Complete Time: 18:53 EDMS Administered Medications: No medications were administered Disposition Summary: 07/19/22 17:33 Transfer Ordered Transfer Location: [facility] ms3 Reason: Higher level of care ms3 Condition: Stable(07/19/22 17:33) ms3 Problem: new(07/19/22 17:33) ms3 Symptoms: are unchanged(07/19/22 17:33) ms3 Accepting Physician: (07/19/22 21:02) jb4 Diagnosis - Fall on same level, unspecified ms3 - Repeated falls ms3 - dysmetria ms3 - anemia ms3 - Headache(07/19/22 17:33) ms3 Forms: - Medication Reconciliation Form ms3 - SBAR form ms3 NIH Stroke Scale - NIH Stroke Score Date: 07/19/2022 Time: 17:26 Total Score = 3 1a. Level of Consciousness (LOC) - 0(Alert) 1b. Level of Consciousness (LOC) (Month \\T\\ Age) - 0(Both) 1c. LOC Commands (Open \\T\\ Closes Eyes/Derrickman Helper) - 0(Both) 2. Best Gaze (Lateral Gaze Paresis) - 0(Normal) 3. Visual Field Loss - 0(No visual loss) 4. Facial Palsy - 0(Normal) 5a. Left Arm: Motor (10-second hold) - 0(No drift) 5b. Right Arm: Motor (10-second hold) - 0(No drift) 6a. Left Leg: Motor (5-second hold - always test supine) - 1(Drift) 6b. Right Leg: Motor (5-second hold - always test supine) - 1(Drift) 7. Limb Ataxia (finger/nose \\T\\ heel/hitchcock - test with eyes open) - 1(Present in one limb) 8. Sensory Loss (pinprick arms/legs/face) - 0(Normal) 9. Best Language: Aphasia (description/naming/reading) - 0(No aphasia) 10. Dysarthria (speech clarity - read or repeat words) - 0(Normal) 11. Extinction and Inattention (visual/tactile/auditory/spatial/personal) - 0(No abnormality) Initials: ms3 Signatures: Dispatcher [employer] EDMS Lg Acuna RN RN jb4 Casandra Esteves RN RN ap3 Mikhail Aceves DO DO ms3 Corrections: (The following items were deleted from the chart) 17:32 16:56 Inpatient Admission ms3 ms3 17:32 16:56 Kd Lui ms3 ms3 17:32 16:56 Telemetry/MedSurg (Inpatient) ms3 ms3 17:32 16:56 Stable ms3 ms3 17:32 16:56 new ms3 ms3 17:32 16:56 are unchanged ms3 ms3 17:32 16:56 Standard ms3 ms3 17:32 16:56 ms3 ms3 17:32 16:56 History of falling ms3 ms3 17:32 16:56 Abdominal pain, Generalized ms3 ms3 17:32 16:56 Headache ms3 ms3 17:32 16:57 Anemia, unspecified ms3 ms3 21:02 17:33 Dr ms3 jb4
--- NOTE | 2022-07-19 16:56 | ER ---
Nurse's Notes [facility] Name: Alexander Bowman Age: 61 yrs Sex: Male : 1960 Arrival Date: 07/19/2022 Time: 14:22 Bed 15 Private MD: Diagnosis: Fall on same level, unspecified;Repeated falls;dysmetria;anemia;Headache Presentation: 07/19 14:26 Chief complaint: Patient states: he called EMS for frequent falls of unknown cause, ap3 stomach pain and nausea. patient states he wants to be [facility] because that is where his dr's are. Patient is also concerned about the location of his teeth from a Endoscopy he had done at this facility yesterday. patient is agitated. Coronavirus screen: At this time, the client does not indicate any symptoms associated with coronavirus-19. Ebola Screen: No symptoms or risks identified at this time. Initial Sepsis Screen: Does the patient meet any 2 criteria? No. Patient's initial sepsis screen is negative. Does the patient have a suspected source of infection? No. Patient's initial sepsis screen is negative. Risk Assessment: Do you want to hurt yourself or someone else? Patient reports no desire to harm self or others. Onset of symptoms is unknown. 14:26 Method Of Arrival: EMS: [facility] ap3 14:26 Acuity: JACEY 3 ap3 Triage Assessment: 14:30 General: Appears distressed, Behavior is agitated. Pain: Complains of pain in abdomen ap3 Pain began gradually. Neuro: Level of Consciousness is awake, alert, obeys commands, Oriented to person, place, time, Speech is normal. Cardiovascular: Patient's skin is warm and dry. Respiratory: Airway is patent Respiratory effort is even, unlabored, Respiratory pattern is regular, symmetrical. GI: Reports lower abdominal pain, upper abdominal pain, nausea. Historical: - Allergies: 14:29 Aspirin; ap3 14:29 Codeine; ap3 14:29 Ibuprofen; ap3 14:29 Levofloxacin; ap3 14:29 mycins; ap3 14:29 PENICILLINS; ap3 14:29 Sulfa (Sulfonamide Antibiotics); ap3 14:29 Tylenol-Codeine #3; ap3 - PMHx: 14:29 Anxiety; COPD; Hypertension; Myocardial infarction; Pneumonia; Pneumothorax; ap3 - PSHx: 14:29 18" bowel removal; Stented artery; ap3 - Immunization history:: Client reports having NOT received the Covid vaccine. - Social history:: Smoking status: Patient denies any tobacco usage or history of. Screenin:31 Abuse screen: Denies threats or abuse. Nutritional screening: No deficits noted. ap3 Tuberculosis screening: No symptoms or risk factors identified. Assessment: 14:32 General: nurse contacted commercial housekeeper in regards to location of patients teeth.. ap3 19:00 Reassessment: Patient appears in no apparent distress at this time. Patient and/or jb4 family updated on plan of care and expected duration. Pain level reassessed. Patient is alert, oriented x 3, equal unlabored respirations, skin warm/dry/pink. 20:00 Reassessment: Patient appears in no apparent distress at this time. Patient and/or jb4 family updated on plan of care and expected duration. Pain level reassessed. Patient is alert, oriented x 3, equal unlabored respirations, skin warm/dry/pink. 20:53 Reassessment: Patient appears in no apparent distress at this time. Patient and/or jb4 family updated on plan of care and expected duration. Pain level reassessed. Patient is alert, oriented x 3, equal unlabored respirations, skin warm/dry/pink. Vital Signs: 14:26 BP 123 / 86; Pulse 85; Resp 17; Temp 98.7; Pulse Ox 97% ; Weight 91.63 kg; Height 6 ft. ap3 (182.88 cm); Pain 10/10; 16:18 BP 126 / 84; Pulse 89; Pulse Ox 99% on R/A; ap3 19:15 BP 108 / 68; Pulse 81; Resp 18; Pulse Ox 97% on R/A; jb4 20:30 BP 110 / 80; Pulse 77; Resp 16; Pulse Ox 99% on R/A; jb4 14:26 Body Mass Index 27.40 (91.63 kg, 182.88 cm) ap3 NIH Stroke Scale Scores: 17:26 NIHSS Score: 3 ms3 ED Course: 14:22 Patient arrived in ED. ms3 14:25 Mikhail Aceves DO is Attending Physician. ms3 14:26 Casandra Esteves, MICHELLE is Primary Nurse. ap3 14:29 Triage completed. ap3 14:31 Arm band placed on right wrist. ap3 14:32 Patient has correct armband on for positive identification. Call light in reach. Side ap3 rails up X2. bus monitor on. Pulse ox on. NIBP on. Door closed. Noise minimized. 14:41 Head C Spine Mpr Wo Con In Process Unspecified. EDMS 16:56 Kd Lui MD is Hospitalizing Provider. ms3 17:28 SARS-COV-2 Antigen Rapid Sent. ap3 18:05 initiated transfer to [facility]. bd 20:30 No provider procedures requiring assistance completed. Patient transferred, IV remains jb4 in place. Administered Medications: No medications were administered Medication: 14:34 VIS not applicable for this client. ap3 Outcome: 16:56 Decision to Hospitalize by Provider. ms3 17:33 ER care complete, transfer ordered by . ms3 20:30 Transferred by ground EMS to [facility], Transfer form completed. X-rays sent jb4 w/ patient. 20:30 Condition: stable 20:30 Discharge instructions given to patient, Instructed on the need for transfer, Demonstrated understanding of instructions. 21:02 Patient left the ED. jb4 NIH Stroke Scale - NIH Stroke Score Date: 07/19/2022 Time: 17:26 Total Score = 3 1a. Level of Consciousness (LOC) - 0(Alert) 1b. Level of Consciousness (LOC) (Month \\T\\ Age) - 0(Both) 1c. LOC Commands (Open \\T\\ Closes Eyes/Engraver Signature) - 0(Both) 2. Best Gaze (Lateral Gaze Paresis) - 0(Normal) 3. Visual Field Loss - 0(No visual loss) 4. Facial Palsy - 0(Normal) 5a. Left Arm: Motor (10-second hold) - 0(No drift) 5b. Right Arm: Motor (10-second hold) - 0(No drift) 6a. Left Leg: Motor (5-second hold - always test supine) - 1(Drift) 6b. Right Leg: Motor (5-second hold - always test supine) - 1(Drift) 7. Limb Ataxia (finger/nose \\T\\ heel/hitchcock - test with eyes open) - 1(Present in one limb) 8. Sensory Loss (pinprick arms/legs/face) - 0(Normal) 9. Best Language: Aphasia (description/naming/reading) - 0(No aphasia) 10. Dysarthria (speech clarity - read or repeat words) - 0(Normal) 11. Extinction and Inattention (visual/tactile/auditory/spatial/personal) - 0(No abnormality) Initials: ms3 Signatures: Dispatcher [employer] EDJess Aden James, RN RN jb4 Casandra Esteves RN RN ap3 Mikhail Aceves DO DO ms3 Corrections: (The following items were deleted from the chart) 19:33 19:15 BP 108 / 68; Pulse 97bpm; Resp 81bpm; Pulse Ox 97% RA; Temp 18F; jb4 jb4
[2022-07-19 17:45] LABS: Urine Blood Trace-intact (Negative); Urine Glucose Negative (Negative); Urine Protein Negative (Negative); Urine Specific Gravity 1.025 (1.005-1.030); Urine pH 6.5 (5.0-7.0)
[2022-07-19 17:54] LABS: SARS-CoV-2 Antigen Rapid Res Positive (Negative)
[2022-07-19 18:11] LABS: Barbiturates NEGATIVE (NEGATIVE); Benzodiazepines POSITIVE (NEGATIVE); Cocaine NEGATIVE (NEGATIVE); METHAMPHETAM NEGATIVE (NEGATIVE); Methadone NEGATIVE (NEGATIVE); Opiates NEGATIVE (NEGATIVE); Phencyclidine NEGATIVE (NEGATIVE); THC Cannibis NEGATIVE (NEGATIVE); Urine Crystals Unidentified Few /HPF (None Seen); Urine Mucus Slight /HPF (None Seen); Urine RBC >50 /HPF (None Seen)
[2022-07-19 21:56] VITALS: TEMP 98.7
[2022-07-19 22:00] VITALS: BP 110/80; O2SAT 99
== END 2022-07-19 21:02 | disposition short-term general hospital (02) ==
LOC: ER 14:13
DX: R27.8 Other lack of coordination (principal); D64.9 Anemia, unspecified; R51.9 Headache, unspecified; R29.6 Repeated falls; W18.30XA Fall on same level, unspecified, initial encounter; Z20.822 Contact with and (suspected) exposure to COVID-19; I10 Essential (primary) hypertension; I25.2 Old myocardial infarction; Z88.0 Allergy status to penicillin; Z88.1 Allergy status to other antibiotic agents; Z88.2 Allergy status to sulfonamides; Z88.3 Allergy status to other anti-infective agents; Z88.5 Allergy status to narcotic agent; Z88.6 Allergy status to analgesic agent
CPT/HCPCS: 36415; 70450; 72125; 80053; 80307; 81003; 81015; 83690; 84484; 85025; 87811; 99285

== ENCOUNTER 2022-09-27 19:53 | Emergency (ER) | payer OTHER ==
--- OUTSIDE RECORDS SUMMARY | 2022-09-27 20:01 | XMS REPORT | Continuity of Care Document ---
:1960 Author Organization [facility] t Address [address] [place] [address] Care Team Providers Name Role Phone Bob Weathers Primary Care Physician JYOTSNA QUINONEZ Attending Clinician Unavailable SUZIE COX Attending Clinician Unavailable Ho MACARIO, Acosta Falcon Attending Clinician [phone] [place] MACARIO, Swati Attending Clinician Zachary MACARIO, Fozia Ruelas Attending Clinician Mendy MACARIO, Suzie Mcgowan Attending Clinician [phone] Carson Mosher MD Attending Clinician Freddie MACARIO, Leeann Almanza Attending Clinician Vanessa HUNG, Lety Attending Clinician Tamy Silvestre MD Attending Clinician Doctor Unassigned, [place] Attending Clinician Unavailable TAMY SILVESTRE Attending Clinician Unavailable BLAIR DE PAZ Attending Clinician Unavailable Russ HART, Sugey Attending Clinician SUGEY MARTINS Attending Clinician Unavailable VARUN QUIROZ Attending Clinician Unavailable Tonia MACARIO, Rimma Attending Clinician Stiven MACARIO, Marcelina Mayo Attending Clinician Varun Quiroz MD Attending Clinician Laura MACARIO, Yohana Attending Clinician Ray Noble CRNA Attending Clinician [phone] Ace MACARIO, Keiry Lo Attending Clinician Baldev MACARIO, Blair Attending Clinician Addison Ramirez MD Attending Clinician Eleuterio Wang MD Attending Clinician [phone] SUKHWINDER CARBAJAL Attending Clinician Unavailable Solomon MACARIO, Sukhwinder Attending Clinician EILEEN BROWN Attending Clinician Unavailable Pc, Adc Vascular Room 1 - Attending Clinician Unavailable Pc, Adc Echo Room 1 - Attending Clinician Unavailable SWATI LAZO Admitting Clinician Unavailable MARCELINA SALEEM Admitting Clinician Unavailable TAMY SILVESTRE Admitting Clinician Unavailable Eleuterio Wang MD Admitting Clinician [phone] Payers Payer Name Policy Type Policy Number Effective Date Expiration Date Lyudmila lizzy [facility] [id number] 2014 PLUS 00:00:00 MEDICARE PART A \\T\\ [id number] 2014 B 00:00:00 [facility] [id number] 2014 00:00:00 MEDICARE A B [id number] 2014 00:00:00 [place]ICAID [employer] [id number] 2014 00:00:00 [place] [id number] 2014 00:00:00 Problems Condition Condition Condition Status [...] S t [facility] Anemia Anemia Disease Active [facility] Medical 00 [place] Epigastric Epigastric Disease Active [facility] pain pain 10-02 [facility] 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 disease disease 00:00: Medical involving involving 00 [facility] [place] coronary coronary artery of artery of [place] heart heart without without angina angina pectoris [...] Medical 00 Center Ibuprofe Propensi Active Anaphylaxis [facility] n ty to 10-02 [facility] adverse 00:00: Medical reaction 00 Center s Penicill Propensi Active Shortness of 2018-09 Univers ins ty to Breath 0-16 ity of adverse 00:00: [place] reaction 00 Medical s Branch Sulfa Propensi Active Swelling 2018-09 Univer s (Sulfona ty to 0-16 ity of mide adverse 00:00: [place] Antibiot reaction 00 Medica l ics) s Branch Aspirin Propensi Active Anaphylaxis 2018-09 Un mateusz [...] Active U 2017-09 [facility] ins 2 00:00: [address] Sulfa DA Active U 2017-09 [facility] (Sulfona 2 [place] mide 00:00: [place] Antibiot 00 Medical ics) Center codeine DA Active U 2017-09 [facility]: [address] aspirin DA Active U 2017-09 [facility]: [address] acetamin DA Active U 2017-09 [facility] ophen 00:[facility]: [address] levoflox DA Active U 2017-09 [facility] acin 00:00: [address] ACETAMIN Allergy Active High Anaphylaxis [facility] OPHEN 04-29 00:00: 00 Acetamin Drug Active Anaphylaxis Pt states [facility] Allergy 04-29 [facility]: throat Medical [address] [place] [address] up. SALICYLA Allergy Active [facility] JUAN 04-25 [...] Medical Antibiot reaction 00 Center ics) s Salicyla Propensi Active [facility] juan ty [...] Date Stop Date Source Natural brother Cancer [facility] Natural father Heart disease [facility] Natural mother Heart disease [facility] Social History Social Habit Start Date Stop Date Quantity Comments Source History of tobacco Snuff User Univer sity of use [facility] History SDOH [facility] Non-Med Medical Center History SDOH [facility] Housing Places Medical Ce nter Lived Alcohol intake 2022-05-15 2022-05-[address] [facility] [address] [facility] 00:00:00 00:00:00 non-drinker of Medical Ce nter alcohol (finding) History [facility] 2022-05-12 2022-05-[address] [facility] Transport Med 00:00:00 00:00:[address] History [facility] 2022-05-12 2022-05-[address] [facility] Housing Unable to 00:00:00 00:00:00 Medical Center Pay History [facility] 2022-05-12 2022-05-[address] [facility] Housing Homeless 00:00:00 00:00:00 Medical Center Last Year Exposure to 2022-01-28 2022-02-07 Not sure University SARS-CoV-2 (event) 00:00:00 13:21:00 [facility] Cigarettes smoked 2016-04-25 2016-04-[address] [facility] [facility] current (pack per 00:00:00 00:00:00 Medical Center day) - Reported Cigarette 2016-04-25 2016-04-[address] [facility] pack-years 00:00:00 00:00:00 [facility] Tobacco use and 2016-04-25 2016-04-[address] [facility] exposure 00:00:00 00:00:00 [facility] Center Sex Assigned At [birth year] [facility] 00:00:00 00:00:00 [facility] Center Smoking Status Start Date Stop Date Source Former smoker 2016-04-25 00:00:00 2016-04-25 00:00:00 [facility] Medications Ordered Filled Start Stop Current Ordering Indication Dosage Frequency Signature Comments Components Source Medication Medication Date Date Medication? Clinician (SIG) Name Name lisinopriL 2021- No 10mg QD Take [address] [facility] [address] (PRINIVIL,Z 8-26 08-25 tablet (10 [facility] ESTRIL) 10 00:00: 00:00 mg total) M edical MG tablet 00 :00 by mouth Center daily. lisinopriL 2022-0 2022- No 10mg QD Take [address] [facility] [address] (PRINIVIL,Z 8- 08-25 tablet (10 [facility] ESTRIL) 10 00:00: 00:00 mg total) M edical MG tablet 00 :00 by mouth Center daily. lisinopriL 2022-0 2022- No 10mg QD Take [address] [facility] (PRINIVIL,Z 8- 08-25 tablet (10 [facility] ESTRIL) 10 00:00: 00:00 mg total) M edical MG tablet 00 :00 by mouth Center daily. fluticasone 2021-0 Yes bronchospas 1{puff} Inhale [address] [facility] [...] 1st dose . chlordiazeP 2021-0 Yes 10mg Q.[id number] Take [address] OXIDE 8-25 [id number] by mouth 3 [facility] (LIBRIUM) 13:21: 3D (three) Medic al 10 MG 52 times Center capsule daily. isosorbide 2-0 Yes 30mg QD Take [address] mononitrate 8-25 by mouth Luke s (IMDUR) 30 13:21: daily. Medic al MG 24 hr 52 Center tablet methocarbam 2021-0 Yes 500mg Q.[id number] Take [address] oL 8-25 [id number] mg by [facility] (ROBAXIN) 13:21: 3D mouth 3 Medic al 500 MG 52 (three) Center tablet times daily. promethazin 0 Yes 25mg Take [address] e 8-25 by mouth [facility] (PHENERGAN) 13:21: every 4 Med ical 25 MG 52 (four) Center tablet hours as needed for Nausea or Vomiting. enalapril 2021-0 Yes hypertensio 10mg Q.[id number] Take [address] [address] (VASOTEC) 8-25 n [id number] by mouth 3 [facility] 10 MG 13:21: 3D (three) Medical tablet 52 times Center daily . fluticasone 2021-0 Yes bronchospas 1{puff} Inhale [address] [...] 1st dose . chlordiazeP 2021-0 Yes 10mg Q.[id number] Take [address] OXIDE 8-25 [id number] by mouth 3 [facility] (LIBRIUM) 13:21: 3D (three) Medic al 10 MG 52 times Center capsule daily. isosorbide 2021-0 Yes 30mg QD Take [address] mononitrate 8-25 by mouth Luke s (IMDUR) 30 13:21: daily. Medic al MG 24 hr 52 Center tablet methocarbam 2021-0 Yes 500mg Q.[id number] Take [address] oL 8-25 [id number] mg by [facility] (ROBAXIN) 13:21: 3D mouth 3 Medic al 500 MG 52 (three) Center tablet times daily. promethazin 2021-0 Yes 25mg Take [address] [facility] e 8-25 by mouth [facility] (PHENERGAN) 13:21: every 4 Med ical 25 MG 52 (four) Center tablet hours as needed for Nausea or Vomiting. enalapril 2021-0 Yes hypertensio 10mg Q.[id number] Take [address] (VASOTEC) 8-25 n [id number] by mouth 3 [facility] 10 MG 13:21: 3D (three) Medical tablet 52 times Center daily . fluticasone 2021-0 Yes bronchospas 1{puff} Inhale [address] [...] 1st dose . chlordiazeP 2021-0 Yes 10mg Q.[id number] Take [address] OXIDE 8-25 [id number] by mouth 3 [facility] (LIBRIUM) 13:21: 3D (three) Medic al 10 MG 52 times Center capsule daily. isosorbide 2021-0 Yes 30mg QD Take [address] mononitrate 8-25 by mouth Luke s (IMDUR) 30 13:21: daily. Medic al MG 24 hr 52 Center tablet methocarbam 2021-0 Yes 500mg Q.[id number] Take [address] oL 8-25 [id number] mg by [facility] (ROBAXIN) 13:21: 3D mouth 3 Medic al 500 MG 52 (three) Center tablet times daily. promethazin Yes 25mg Take [address] e 8-25 by mouth [facility] (PHENERGAN) 13:21: every 4 Med ical 25 MG 52 (four) Center tablet hours as needed for Nausea or Vomiting. enalapril Yes hypertensio 10mg Q.[id number] Take [address] (VASOTEC) 8-25 n [id number] by mouth 3 [facility] 10 MG 13:21: 3D (three) Medical tablet 52 times Center daily . dexlansopra 2021- No 1{capsu Q.5D [...] (two) Center times daily . psyllium 2022- No 1{packe Q.5D Take [address] [facility] (METAMUCIL 8-25 08-25 t} packet by [facility] WITH SUGAR) 00:00: 23:59 mouth 2 Me dical 3.4 gram 00 :00 (two) Center packet times daily. psyllium 2022- No 1{packe Q.5D Take [address] [address] (METAMUCIL 8-25 08-25 t} packet by [facility] WITH SUGAR) 00:00: 23:59 mouth 2 Me dical 3.4 gram 00 :00 (two) Center packet times daily. psyllium 2022-0 2023- No 1{packe Q.5D Take [address] [facility] (METAMUCIL 05-18- t} packet by [facility] WITH SUGAR) 00:00: 23:59 mouth 2 Me dical 3.4 gram 00 :00 (two) Center packet times daily. sucralfate 2021- No 1g Take [address] [address] (CARAFATE) 05-18-24 mLs (1 g Luke [facility] 100 mg/mL [...] No 2mg Take [address] [facility] ne 8- 09-04 tablet (2 [facility] (DILAUDID) 00:00: 23:59 mg total) M edical 2 MG tablet 00 :00 by mouth Cent er every 4 (four) hours as needed for up to 10 days. Max Daily Amount: 12 mg loperamide 2022-0 2022- No 2mg Take [address] [facility] (IMODIUM) 2 -18 06-04 capsule (2 L [facility] mg capsule 00:00: 23:59 mg total) M edical 00 :00 by mouth 4 Center (four) times daily as needed for Diarrhea for up to 10 days. HYDROmorpho 2022-0 2022- No 2mg Take [address] [facility] ne 8-18 06-04 tablet (2 [facility] (DILAUDID) 00:00: 23:59 mg total) M edical 2 MG tablet 00 :00 by mouth Cent er every 4 (four) hours as needed for up to 10 days. Max Daily Amount: 12 mg loperamide 2022-0 2022- No 2mg Take [address] [facility] [facility] (IMODIUM) 2 05-18-04 capsule (2 [facility] mg capsule 00:00: 23:59 mg total) M edical 00 :00 by mouth 4 Center (four) times daily as needed for Diarrhea for up to 10 days. HYDROmorpho 2022-0 2022- No 2mg Take [address] [facility] ne -18 06-04 tablet (2 [facility] (DILAUDID) 00:00: 23:59 mg total) M edical 2 MG tablet 00 :00 by mouth Cent er every 4 (four) hours as needed for up to 10 days. Max Daily Amount: 12 mg omeprazole 2022-0 2022- No 20mg Q.5D Take [address] [facility] 20 mg TbEC 8-25 08-25 by mouth 2 [facility] 00:00: 00:00 (two) Medical 00 :00 times Center daily for 30 days. omeprazole 2022-0 2022- No 20mg Q.5D Take [address] [facility] 20 mg TbEC 8-25 08-25 by mouth 2 [facility] 00:00: 00:00 (two) Medical 00 :00 times Center daily for 30 days. omeprazole 2022-0 2022- No 20mg Q.5D Take [address] [facility] 20 mg TbEC 8-25 08-25 by mouth 2 [facility] 00:00: 00:00 [...] daily. Branch fluticasone 2021-0 Yes Use in [facility] [place] ers propionate 5-17 each ity of 50 [...] daily. Branch fluticasone 2021-0 Yes Use in [facility] [place] ers propionate 5-17 each ity of 50 [...] daily. Branch fluticasone 2021-0 Yes Use in [facility] [place] ers propionate 5-17 each ity of 50 13:42: nostril [place] mcg/actuati 33 daily. Medica l on nasal Branch spray proMETHazin 2021-0 Yes 25mg Take 25 mg Univers e 25 mg 5-17 by mouth ity of tablet 13:42: every 4 [place] [id number] (four) Medical hours as Branch needed. isosorbide [...] daily. Branch fluticasone 2021-0 Yes Use in [facility] [place] ers propionate 5-17 each ity of 50 13:42: nostril [place] mcg/actuati 33 daily. Medica l on nasal Branch spray proMETHazin 2021-0 Yes 25mg Take 25 mg Univers e 25 mg 5-17 by mouth ity of tablet 13:42: every 4 [place] [id number] (four) Medical hours as Branch needed. traZODone 2021-0 2021- No 50mg QD Take [address] (DESYREL) 18 10-11 by mouth [facility] 50 MG 13:03: 00:00 nightly. Medical tablet 25 :00 Center traZODone 2021- No 50mg QD Take [address] (DESYREL) 10-1118 by mouth [facility] 50 MG 13:03: 00:00 nightly. Medical tablet 25 :00 [place] traZODone 2021-2- No 50mg QD Take [address] (DESYREL) 18 -18 by mouth [facility] 50 MG 13:03: 00:00 nightly. Medical tablet 25 :00 Center tiotropium 2021-2021- No 18ug QD Inhale [address] (SPIRIVA) 18 01-18 mcg by [facility] 18 mcg 13:03: 00:00 mouth via Medic al inhalation 16 :00 inhaler Center capsule daily. tiotropium 2021-2021- No 18ug QD Inhale [address] (SPIRIVA) 18 01-18 mcg by [facility] 18 mcg 13:03: 00:00 mouth via Medic al inhalation 16 :00 inhaler Center capsule daily. tiotropium 2021-2021- No 18ug QD Inhale [address] (SPIRIVA) 18 01-18 mcg by [facility] 18 mcg 13:03: [...] Take [address] (KlonoPIN) 10-11-18 by mouth 2 [facility] 1 MG tablet 12:53: 00:00 (two) Medi julieta 26 :00 times Center daily as needed for Anxiety. sucralfate 2021-2021- No 1g Q.25D Take [address] (CARAFATE) 1-18 02-17 mLs (1 g [facility] 100 mg/mL 00:00: 23:59 total) by Me dical suspension 00 :00 mouth 4 Center (four) times daily for 30 days. sucralfate 2021- No 1g Q.25D Take [address] (CARAFATE) 1-18 02-17 mLs (1 g [facility] 100 mg/mL 00:00: 23:59 total) by Me dical suspension 00 :00 mouth 4 Center (four) times daily for 30 days. sucralfate 2021- No 1g Q.25D Take [address] (CARAFATE) 1-18 02-17 mLs (1 g [facility] 100 [...] Q.5D Take [address] [facility] e 10-04 02-10 tablet (40 [facility] (PROTONIX) 00:00: 23:59 mg total) M edical 40 MG 00 :00 by mouth 2 Center tablet (two) times daily for 30 days. ferrous 2021-2021- No 325mg Take [address] [facility] sulfate 325 10-04-10 tablet [facility] (65 FE) MG 00:00: 23:59 (325 mg Med ical EC tablet 00 :00 total) by Cente r mouth 3 (three) times daily with meals for 30 days. pantoprazol 2021- No 40mg Q.5D Take [address] [facility] e 10-04-10 tablet (40 [facility] (PROTONIX) 00:00: 23:59 mg total) M edical 40 MG 00 :00 by mouth 2 Center tablet (two) times daily for 30 days. ferrous 2021- No 325mg Take [address] [facility] sulfate 325 10-04-10 tablet [facility] (65 FE) MG 00:00: 23:59 (325 mg Med ical EC tablet 00 :00 total) by Cente r mouth 3 (three) times daily with meals for 30 days. pantoprazol 2021- No 40mg Q.5D Take [address] e 10-0410 tablet (40 [facility] (PROTONIX) 00:00: 23:59 mg [...] days. Max Daily Amount: 60 mg docusate 2022-0 2022- No 100mg Q.5D Take 1 [facility] t sodium 10-0418 capsule [facility] (COLACE) 00:00: 00:00 (100 mg Medic al 100 MG 00 :00 total) by Center capsule mouth 2 (two) times daily for 30 days. sucralfate 2022-0 2022- No 1g Q.25D Take [address] (CARAFATE) 10-0418 mLs (1 g [facility] 100 mg/mL 00:00: 00:00 total) by Me dical suspension 00 :00 mouth 4 Center (four) times daily for 30 days. morphine 2-0 2021- No 15mg Take [address] [facility] (MSIR) 15 10-0418 tablet (15 [facility] MG tablet 00:00: 00:00 mg total) Me dical 00 :00 by mouth Center every 6 (six) hours as needed for Pain for up to 10 days. Max Daily Amount: 60 mg docusate 2021-0 2- No 100mg Q.5D Take 1 [facility] sodium 10-04 capsule [facility] (COLACE) 00:00: 00:00 (100 mg Medic al 100 MG 00 :00 total) by Center capsule mouth 2 (two) times daily for 30 days. sucralfate 2022-0 2022- No 1g Q.25D Take [address] (CARAFATE) 10-0418 mLs (1 g [facility] 100 mg/mL 00:00: 00:00 total) by Me dical suspension 00 :00 mouth 4 Center (four) times daily for 30 days. morphine 2022-0 2022- No 15mg Take [address] [facility] (MSIR) 15 10-0418 tablet (15 [facility] MG tablet 00:00: 00:00 mg total) Me dical 00 :00 by mouth Center every 6 (six) hours as needed for Pain for up to 10 days. Max Daily Amount: 60 mg pantoprazol 2022-0 2022- No 40mg Q.5D Take [address] e 10-04 tablet (40 [facility] (PROTONIX) 00:00: 00:00 mg total) M edical 40 MG 00 :00 by mouth 2 Center tablet (two) times daily for 30 days. ferrous 2022-0 2022- No 325mg Take [address] [facility] sulfate 325 10-04 tablet [facility] (65 FE) MG 00:00: 00:00 (325 mg Med ical EC tablet 00 :00 total) by Cente r mouth 3 (three) times daily with meals for 30 days. docusate 2022-0 2022- No 100mg Q.5D Take 1 [facility] sodium 10-04 capsule [facility] (COLACE) 00:00: 00:00 (100 mg Medic al 100 MG 00 :00 total) by Center capsule mouth 2 (two) times daily for 30 days. sucralfate 2021-0 2022- No 1g Q.25D Take [address] (CARAFATE) 10-04 mLs (1 g [facility] 100 mg/mL 00:00: 00:00 total) by Me dical suspension 00 :00 mouth 4 Center (four) times daily for 30 days. pantoprazol 2021-0 2022- No 40mg Q.5D Take [address] [facility] [facility] e 10-04 tablet (40 [facility] (PROTONIX) 00:00: 00:00 mg total) M edical 40 MG 00 :00 by mouth 2 Center tablet (two) times daily for 30 days. ferrous 2022-0 2022- No 325mg Take [address] [facility] [facility] sulfate 325 10-04 tablet [facility] (65 FE) MG 00:00: 00:00 (325 mg Med ical EC tablet 00 :00 total) by Cente r mouth 3 (three) times daily with meals for 30 days. docusate 2022-0 2022- No 100mg Q.5D Take 1 [facility] sodium 10-04 capsule [facility] (COLACE) 00:00: 00:00 (100 mg Medic al 100 MG 00 :00 total) by Center capsule mouth 2 (two) times daily for 30 days. sucralfate 2022-0 2022- No 1g Q.25D Take 10 CH I [...] (two) times daily for 30 days. ferrous 2021- No 325mg Take [address] [facility] sulfate 325 10-04 tablet [facility] (65 FE) MG 00:00: 00:00 (325 mg Med ical EC tablet 00 :00 total) by [facility] mouth 3 (three) times daily with meals for 30 days. docusate 2021- No 100mg Q.5D Take 1 [facility] sodium 10-04 capsule [facility] (COLACE) 00:00: 00:00 (100 mg Medic al 100 MG 00 :00 total) by [place] capsule mouth 2 (two) times daily for 30 days. sucralfate 2021- No 1g Q.25D Take [address] (CARAFATE) 10-04 mLs (1 g [facility] 100 mg/mL 00:00: 00:00 total) by Me dical suspension 00 :00 mouth 4 Center (four) times daily for 30 days. traZODone 2021- No 50mg QD Take [address] (DESYREL) 10-03 by mouth [facility] 50 MG 10:26: 00:00 nightly. Medical tablet 59 :00 Center traZODone 2021- No 50mg QD Take [address] (DESYREL) 10-03 by mouth [facility] 50 MG 10:26: 00:00 nightly. Medical tablet 59 :00 Center traZODone 2021-0 2021- No 50mg QD Take [address] (DESYREL) 10-03 by mouth [facility] 50 MG 10:26: 00:00 nightly. Medical tablet 59 :00 Center temazepam 2021-2021- No 15mg Take [address] (RESTORIL) 10-03 by mouth [facility] 15 mg 10:26: 00:00 every Medical capsule 22 :00 night as Center needed for Sleep. temazepam 2021-0 2021- No 15mg Take [address] (RESTORIL) 1-10 -10 by mouth [facility] 15 mg 10:26: 00:00 every Medical capsule 22 :00 night as Center needed for Sleep. temazepam 2021-0 2021- No 15mg Take [address] (RESTORIL) 1-10 -10 by mouth [facility] 15 mg 10:26: [...] times daily with breakfast and dinner. clonazePAM 2021-2021- No 1mg Take [address] (KLONOPIN) 1-06 24-10 by mouth 2 [facility] 1 MG tablet 10:23: 00:00 (two) Medi julieta 14 :00 times Center daily as needed for Anxiety. clonazePAM 2021-0 2021- No 1mg Take [address] (KLONOPIN) 1-10 -10 by mouth 2 [facility] 1 MG tablet 10:23: 00:00 (two) Medi julieta 14 :00 times Center daily as needed for Anxiety. clonazePAM 2021-0 2021- No 1mg Take [address] (KLONOPIN) 1-10 01-10 by mouth 2 [facility] 1 MG tablet 10:23: 00:00 (two) Medi julieta 14 :00 times Center daily as needed for Anxiety. pravastatin 2021-0 2021- No 40mg QD Take [address] [facility] (PRAVACHOL) 1-05 25-09 by mouth [facility] 40 MG 14:51: 00:00 daily. Medical tablet 25 :00 [place] pravastatin 2021- No 40mg QD Take [address] [facility] (PRAVACHOL) 10-02 by mouth [facility] 40 MG 14:51: 00:00 daily. Medical tablet 25 :00 [place] pravastatin 2021- No 40mg QD Take [address] (PRAVACHOL) 10-02 by mouth [facility] 40 MG 14:51: 00:00 daily. Medical tablet 25 :00 [place] chlordiazeP 2019-09 Yes 10mg Take 10 mg Univers OXIDE 10 mg 0-26 by mouth 3 it y of capsule 15:56: (three) [place] 14 times Medical daily. Branch isosorbide 2019-09 Yes 30mg Take 30 mg U nivers mononitrate 0-26 by mouth ity of 30 mg 24 hr 15:56: [place]. [place] tablet 14 Medical [place] methocarbam 2019-09 Yes 500mg Take 500 U [...] 500-50 daily. Branch mcg/dose inhalation disk enalapril 2019- Yes [id number] 10mg Take 1 U nivers 10 mg 0-26 tablet by ity of tablet 00:00: mouth (two) Medical times Branch daily. enalapril 2020- Yes [id number] 10mg Take 1 U nivers 10 mg 0-26 tablet by ity of tablet 00:00: mouth (two) Medical times Branch daily. enalapril 2020-1 Yes [id number] 10mg Take 1 U nivers 10 mg 0-26 tablet by ity of tablet 00:00: mouth (two) Medical times Branch daily. enalapril 2019- Yes [id number] 10mg Take 1 U nivers 10 mg 0-26 tablet by ity of tablet 00:00: mouth (two) Medical times Branch daily. enalapril 2019- Yes HFrEF 10mg Take 1 Unive rs [...] 2 [place] 00 (two) Medical times Branch daily with [...] as needed. Medica l ointment 00 :00 [place] meropenem 2021- No 1g Inject [address] (MERREM) 05-08 intravenou [facility] MBP 1 gm in 00:00: 00:00 sly every Medical 100 mL NS 00 :00 8 (eight) Cente r hours. lidocaine 2021- No Apply [facility] (XYLOCAINE) 05-08 topically [facility] 5 % 00:00: 00:00 as needed. Medica l ointment 00 :00 [place] meropenem 2021- No 1g Inject 1 g [...] kg Heart rate 2022-05-18 10:00:00 95 /min [facility] Respiratory rate 2022-05-18 10:00:00 18 /min [facility] Oxygen saturation in 2022-05-18 10:00:00 96 /min [facility] Arterial blood by Medical Ce nter Pulse oximetry Systolic blood 2022-05-18 08:02:00 109 mm[Hg] [facility] Diastolic blood 2022-05-18 08:02:00 57 mm[Hg] [facility] Body temperature 2022-05-18 08:02:00 36.56 Yoly [facility] Body weight 2022-05-18 06:15:00 70.262 kg [facility] BMI 2022-05-18 06:15:00 21.01 kg/m2 [facility] Body height 2022-05-12 00:04:00 182.9 cm [facility] Procedures Procedure Date / Time Performing Clinician Source Performed PHOSPHORUS 2022-05-18 04:06:00 Fozia Sharma [facility] PHOSPHORUS 2022-05-17 16:25:00 Fozia Sharma [facility] VITAMIN D, 25-HYDROXY 2022-05-17 03:15:00 Fozia Sharma [facility] PHOSPHORUS 2022-05-17 03:15:00 Fozia Sharma [facility] BASIC METABOLIC PANEL 2022-05-17 03:15:00 Fozia Sharma [facility] MAGNESIUM 2022-05-17 03:15:00 Fozia Sharma [facility] CBC W/PLT COUNT & AUTO 2022-05-16 13:54:00 Fozia Sharma [facility] BASIC METABOLIC PANEL 2022-05-16 13:54:00 Fozia Sharma [facility] MAGNESIUM 2022-05-16 13:54:00 Fozia Sharma [facility] PHOSPHORUS 2022-05-16 13:54:00 Fozia Sharma [facility] PTH, INTACT 2022-05-16 13:54:00 oFzia Sharma [facility] CALCIUM, IONIZED 2022-05-16 13:54:00 Fozia Sharma [facility] PROLACTIN 2022-05-16 13:54:00 Fozia Sharma [facility] CBC W/PLT COUNT & AUTO 2022-05-16 13:54:00 Fozia Sharma [facility] CBC W/PLT COUNT & AUTO 2022-05-15 04:37:00 Fozia Sharma [facility] GASTRIN 2022-05-15 04:37:00 Fozia Sharma [facility] BASIC METABOLIC PANEL 2022-05-15 04:37:00 Fozia Sharma [facility] MAGNESIUM 2022-05-15 04:37:00 Fozia Sharma [facility] PHOSPHORUS 2022-05-15 04:37:00 Fozia Sharma [facility] CBC W/PLT COUNT & AUTO 2022-05-15 04:37:00 Fozia Sharma [facility] DIFFERENTIAL Center CBC W/PLT COUNT & AUTO 2022-05-14 17:33:00 Fozia Sharma [facility] DIFFERENTIAL [place] PARIETAL CELL ANTIBODY, 2022-05-14 17:33:00 Fozia Sharma [facility] IGG Center INTRINSIC FACTOR BLOCKING 2022-05-14 17:33:00 Fozia Sharma [facility] ANTIBODY Center CBC W/PLT COUNT & AUTO 2022-05-14 17:33:00 Fozia Sharma [facility] DIFFERENTIAL [place] CT ABDOMEN/PELVIS WITH IV 2022-05-14 12:22:00 [place] [facility] CONTRAST Center CBC W/PLT COUNT & AUTO 2022-05-14 05:24:00 Fozia Sharma [facility] [facility] BASIC METABOLIC PANEL 2022-05-14 05:24:00 Fozia Sharma [facility] MAGNESIUM 2022-05-14 05:24:00 Fozia Sharma [facility] PHOSPHORUS 2022-05-14 05:24:00 Fozia Sharma [facility] CBC W/PLT COUNT & AUTO 2022-05-14 05:24:00 Fozia Sharma [facility] VITAMIN B12 2022-05-14 04:02:00 [facility] IRON, TIBC, % SAT. 2022-05-14 04:02:00 Fozia Sharma [facility] (WITHOUT FERRITIN) Center HC LAB HIV-1 AG W/HIV-1&2 2022-05-14 04:02:00 Fozia Sharma [facility] AB Center RPR 2022-05-14 04:02:00 Fozia Sharma [facility] CBC W/PLT COUNT & AUTO 2022-05-13 20:39:00 [facility] CBC W/PLT COUNT & AUTO 2022-05-13 20:39:00 Jean Claude [facility]rist[facility] REPORT OF PROCEDURE - 2022-05-13 12:49:49 Vidhi [facility] ENDOSCOPY URL Center TISSUE EXAM 2022-05-13 10:18:00 Vidhi [facility] ESOPHAGOGASTRODUODENOSCOP 2022-05-13 09:46:[address] [facility] [facility], WITH BIOPSY Center CBC W/PLT COUNT & AUTO 2022-05-13 03:20:00 [facility] PT/APTT 2022-05-13 03:20:00 [facility] CBC W/PLT COUNT & AUTO 2022-05-13 03:20:00 [facility] 2D ECHO W/ DOPPLER 2022-05-12 15:51:45 [facility] (CW/PW/COLOR) [place] C-REACTIVE PROTEIN 2022-05-12 14:57:00 [facility] LACTIC ACID, VENOUS 2022-05-12 10:38:00 [facility] CBC W/PLT COUNT & AUTO 2022-05-12 10:38:00 [facility] CBC W/PLT COUNT & AUTO 2022-05-12 10:38:00 [facility] 12-LEAD 2022-05-12 02:32:35 Unknown, Hl7 [facility] ECG 12-LEAD 2022-05-12 02:32:35 [facility] ECG 12-LEAD 2022-05-12 02:32:35 Unknown, Hl7 [facility] CBC W/PLT COUNT & AUTO 2022-05-12 02:07:00 [facility] DIFFERENTIAL Center COMPREHENSIVE METABOLIC 2022-05-12 02:07:00 [facility] PANEL Center HIGH SENSITIVITY TROPONIN 2022-05-12 02:07:00 [facility] I Center PROTHROMBIN TIME/INR 2022-05-12 02:07:00 [facility] APTT 2022-05-12 02:07:00 [facility] D-DIMER 2022-05-12 02:07:00 [facility] LACTIC ACID, VENOUS 2022-05-12 02:07:00 [facility] B-TYPE NATRIURETIC FACTOR 2022-05-12 02:07:00 [facility] (BNP) Center TYPE AND SCREEN, 2022-05-12 02:07:00 [facility] AUTOMATED Center CBC W/PLT COUNT & AUTO 2022-05-12 02:07:00 [facility] DIFFERENTIAL [place] XR CHEST 1 VIEW PORTABLE 2022-05-12 01:22:[address] [facility] BEDSIDE Center EKG-SCANNED 2022-05-11 00:00:00 Provider, [facility] Scanning Center EXTERNAL PROVIDER RECORDS 2022-02-21 05:01:00 Doctor Unassigned, [facility] [place] [facility] AUTHORIZATION FOR RELEASE 2021-11-02 06:01:00 Doctor Unassigned, [facility] [place] [facility] REPORT OF PROCEDURE - 2021-10-04 08:56:25 Keiry Bello [facility] ENDOSCOPY URL Center TISSUE EXAM 2021-10-04 08:30:00 Keiry Bello [facility] ESOPHAGOGASTRODUODENOSCOP 2021-10-04 08:02:00 Keiry Bello [facility] Y, WITH BIOPSY Center ABORH, MANUAL 2021-10-04 04:36:00 Conchis Prescott [facility] COMPREHENSIVE METABOLIC 2021-10-04 03:42:00 Marcelina Saleem [facility] CBC W/PLT COUNT & AUTO 2021-10-04 03:42:00 Marcelina Saleem [facility] MAGNESIUM 2021-10-04 03:42:00 Marcelina Saleem [facility] PHOSPHORUS 2021-10-04 03:42:00 Marcelina Saleem [facility] TYPE AND SCREEN, 2021-10-04 03:42:00 [facility] AUTOMATED [facility] CBC W/PLT COUNT & AUTO 2021-10-04 03:42:00 Marcelina Saleem [facility] CT ABDOMEN/PELVIS WITH IV 2021-10-03 16:42:00 [facility] CONTRAST [facility] 2D ECHO W/ DOPPLER 2021-10-03 07:41:01 Jaylin Hough [facility] (CW/PW/COLOR) Center COMPREHENSIVE METABOLIC 2021-10-03 03:51:00 Marcelina Saleem [facility] CBC W/PLT COUNT & AUTO 2021-10-03 03:51:00 Marcelina Saleem [facility] MAGNESIUM 2021-10-03 03:51:00 Marcelina Saleem [facility] PHOSPHORUS 2021-10-03 03:51:00 Marcelina Saleem [facility] HEMOGLOBIN A1C 2021-10-03 03:51:00 Marcelina Saleem [facility] LIPID PANEL 2021-10-03 03:51:00 Marcelina Saleem [facility] CBC W/PLT COUNT & AUTO 2021-10-03 03:51:00 Marcelina Saleem [facility] URINALYSIS WITH 2021-10-02 23:23:00 Marcelina Saleem [facility] IF INDICATED Center SARS-COV2/RT-PCR ([facility] & 2021-10-02 22:58:00 Saleem, [facility] REF LABS) [place] XR ABDOMEN/KUB 1 VIEW 2021-10-02 17:46:00 Roby [facility] ECG 12-LEAD 2021-10-02 15:15:06 Stiven [facility] CBC W/PLT COUNT & AUTO 2021-10-02 15:00:00 Stiven [facility] DIFFERENTIAL Center COMPREHENSIVE METABOLIC 2021-10-02 15:00:00 Stiven [facility] PANEL Center MAGNESIUM 2021-10-02 15:00:00 Stiven [facility] PHOSPHORUS 2021-10-02 15:00:00 Stiven [facility] PROTHROMBIN TIME/INR 2021-10-02 15:00[facility], VENOUS 2021-10-02 15:00:[facility] HIGH SENSITIVITY TROPONIN 2021-10-02 15:00:00 Stiven [facility] B-TYPE NATRIURETIC FACTOR 2021-10-02 15:00:00 [facility] ([facility] [place] TSH/FREE T4 IF INDICATED 2021-10-02 15:00:00 [facility] FERRITIN 2021-10-02 15:00:00 [facility] IRON, TIBC, % SAT. 2021-10-02 15:00:00 [facility] [place] VITAMIN B12 AND FOLATE 2021-10-02 15:00:00 [facility] RETICULOCYTE COUNT 2021-10-02 15:00:00 [facility] PERIPHERAL BLOOD SMEAR - 2021-10-02 15:00:00 [facility] PATHOLOGIST REVIEW Center T4, FREE 2021-10-02 15:00:00 [facility] LIPASE 2021-10-02 15:00:00 Roby [facility] CBC W/PLT COUNT & AUTO 2021-10-02 15:00:[address] [facility] Medical DIFFERENTIAL Center XR CHEST 1 VIEW PORTABLE 2021-10-02 14:34:00 Marcelina Saleem I [facility] Medical / BEDSIDE Center 2D ECHO W/ DOPPLER 2021-10-02 14:07:22 Marcelina Saleem [facility] Medical (CW/PW/COLOR) Center ARRYTHMIA IMPLANT REPORT 2021-10-02 00:00:00 Provider, Default [facility] EKG-SCANNED 2021-10-02 00:00:00 Provider, Default [facility] MEDICATION CORRESPONDENCE 2021-01-13 05:01:00 Doctor Unassigned, [facility] [place] [facility] Plan of Care Planned Activity Planned Date Details Comments Source Future Scheduled 2024-10-[address] [facility] 00:[facility]:00 (procedure) [code = [facility] 04284979] Future Scheduled 2024-10-[address] [facility] 00:00:00 (procedure) [code = [facility] 68402123] Future Scheduled 2024-10-[address] [facility] Test 00:00:00 (procedure) [code = [facility] 66343655] Future Scheduled 2023-05-[address] [facility] Test 00:00:00 Counseling and Medical Cente r Screening (12+) [code = Tobacco Cessation Counseling and Screening (12+)] Future Scheduled 2022-05-25 INFLUENZA VACCINE (#1) C [...] SCREENING (12+)] Future Scheduled 2021-07-19 Depression screening Uni [facility] Test 00:00:00 (procedure) [code = Medical Branch 801969734] Future Scheduled 2021-05-25 INFLUENZA VACCINE Univer [facility] Test 00:00:00 (Season Ended) [code = Medic al Branch INFLUENZA VACCINE (Season Ended)] Future Scheduled 2016 [facility] for [facility] Test 00:00:00 malignant neoplasm of Medica l Branch lung (procedure) [code = 082033833] Future Scheduled 2015-06-[address] [...] Future Scheduled 2011 [facility] blood in feces Medical Bran h (procedure) [code = 037776112] Future Scheduled 2011 SHINGLES VACCINES ([address] [facility] Test 00:00:00 of 2) [code = SHINGLES Medic al Center VACCINES (1 of 2)] Future Scheduled 2011 SHINGLES VACCINES ([address] [facility] Test 00:00:00 of 2) [code = SHINGLES Medic al Center VACCINES (1 of 2)] Future Scheduled 2011 Stool DNA-based [facility] Test 00:00:00 colorectal cancer Medical Br anch screening (procedure) [code = 411827332553425] Future Scheduled 2011 Flexible fiberoptic [facility] Test 00:00:00 sigmoidoscopy Medical Branch (procedure) [code = 53064390] Future Scheduled 2011 Screening for [facility] Test 00:00:00 malignant neoplasm of Medica l Branch colon (procedure) [code = 265150727] Future Scheduled 2011 Screening for [facility] Test 00:00:00 malignant neoplasm of Medica l Branch colon (procedure) [code = 980919555] Future Scheduled 2011 Zoster Recombinant [facility] Test 00:00:00 Vaccine (SHINGRIX) (1 Medica l Branch of 2) [code = Zoster Recombinant Vaccine (SHINGRIX) (1 of 2)] Future Scheduled 1980 DTAP/TDAP/TD VACCINES [facility] Test 00:00:00 (1 - Tdap) [code = Medical C enter DTAP/TDAP/TD VACCINES (1 - Tdap)] Future Scheduled 1980 DTAP/TDAP/TD VACCINES [facility] Test 00:00:00 (1 - Tdap) [code = Medical C enter DTAP/TDAP/TD VACCINES (1 - Tdap)] Future Scheduled 1980 DTAP/TDAP/TD VACCINES [facility] Test 00:00:00 (1 - Tdap) [code = Medical C enter DTAP/TDAP/TD VACCINES (1 - Tdap)] Future Scheduled 1980 DTaP,Tdap,and Td [facility] Test 00:00:00 Vaccines (1 - Tdap) [...] (1 - PCV)] Future Scheduled [address] [facility] Test 00:00:00 0-64 YRS (1 - PCV) Medical C enter [code = PNEUMOCOCCAL VACCINE 0-64 YRS (1 - PCV)] Future Scheduled [address] [facility] Test 00:00:00 0-64 YRS (1 - PCV) Medical C enter [code = PNEUMOCOCCAL VACCINE 0-64 YRS (1 - PCV)] Future Scheduled 1967 PNEUMOCOCCAL 0-64 [facility] Test 00:00:00 YEARS COMBINED SERIES Medica [...] Medica l Center colon (procedure) [code = 613504600] Future Scheduled [address] [facility] Test 00:00:00 malignant neoplasm of Medica l Center colon (procedure) [code = 209567178] Future Scheduled [address] [facility] Test 00:00:00 malignant neoplasm of Medica l Center colon (procedure) [code = 008853208] Future Scheduled [address] [facility] Test 00:00:00 malignant neoplasm of Medica l Center colon (procedure) [code = 906160368] Future Scheduled 1961 Sigmoidoscopy [code [facility] Sigmoidoscopy] Medical Tonye r Future Scheduled [address] [facility] Test 00:00:00 (combo) [code = CT Medical C enter Colonography (combo)] Future Scheduled [address] [facility] Test 00:00:00 malignant neoplasm of Medica l Center colon (procedure) [code = 700596916] Future Scheduled [address] [facility] [facility] Test 00:00:00 malignant neoplasm of Medica l Center colon (procedure) [code = 548932591] Future Scheduled [address] [facility] [facility] Test 00:00:00 malignant neoplasm of Medica l Center colon (procedure) [code = 601638882] Future Scheduled [address] [facility] [facility] Test 00:00:00 malignant neoplasm of Medica l Center colon (procedure) [code = 961738753] Future Scheduled 1961 Sigmoidoscopy [facility]code [facility] Sigmoidoscopy] Medical Tonye r Future Scheduled [address] [facility] 00:00:00 (combo) [code = CT Medical C enter Colonography (combo)] Future Scheduled [address] [facility] Test 00:00:00 malignant neoplasm of Medica l Center colon (procedure) [code = 980821848] Future Scheduled [address] [facility] [facility] Test 00:00:00 malignant neoplasm of Medica l Center colon (procedure) [code = 305262654] Future Scheduled [address] [facility] [facility] Test 00:00:00 malignant neoplasm of Medica l Center colon (procedure) [code = 431333631] Future Scheduled [address] [facility] Test 00:00:00 malignant neoplasm of Medica l Center colon (procedure) [code = 613657254] Future Scheduled 1961 Sigmoidoscopy [facility] S[facility]oscopy] Medical Cente r Future Scheduled 1961 Hepatitis C screening Un [facility] Test 00:00:00 (procedure) [code = Medical Branch 338451235] Encounters Start End Encounter Admission Attending Care Care Encounter Source Date/Time Date/Time Type Type Clinicians Facility Department ID 2022-07-14 Outpatient [facility] [id number] [place] 16:18:[id number] [facility] 2022-07-11 Outpatient [facility] [id number] [place] 07:23:[id number] [facility] 2022-07-07 Outpatient [facility] [id number] [place] 12:22:[id number] [facility] 2021-07-25 Emergency [facility] [id number] Univers 02:36:54 [facility] 2022-07-18 2022-07-18 Outpatient CRISTIANO [facility] [id number] [place] 13:40:00 13:40:00 [facility] 2022-05-11 2022-05-18 Inpatient [place] [id number] [facility] 21:30:00 13:21:[facility] 2022-05-11 2022-05-18 [facility] [id number] [facility] 21:30:00 13:21:00 [facility] 2022-05-11 2022-05-18 [facility] Acosta Teague [facility] [id number] [facility] 21:30:00 13:21:00 Encounter Swati Lazo [facility] 2022-05-13 2022-05-[address] [facility] [id number] 14:24:00 15:14:00 [facility] 2022-05-13 2022-05-[address] [facility] [id number] 14:24:00 15:14:00 [facility] 2022-05-13 2022-05-13 Anesthesia Leeann Fraziere [facility] [id number] 09:56:00 10:39:00 Event Lety Mendez [facility] 2022-05-13 2022-05-[address] [facility] [id number] 09:56:00 10:39:00 Event Lety Mendez [facility] 2022-05-12 2022-05-12 Outpatient BCM [facility] [id number] [facility] 00:00:00 23:59:00 [facility] 2022-05-12 2022-05-12 Travel [facility] [id number] [facility] 00:[facility]00 [facility] 2022-05-12 2022-05-12 Travel [facility] [id number] [facility] 00:[facility] 00[facility]00 [facility] 2022-05-11 2022-05-11 [id number] [facility] 21:30:00 23:59:00 [facility] 2022-02-23 2022-02-23 Telephone [facility] [id number] Univers 00:00:00 00:00:00 Tamy PARDO [id number] i ty [facility] [id number] [phone] [place] dic[address] 2022-02-21 2022-02-21 Orders Doctor KIERA [id number] [id number] Univers 00:00:00 00:00:00 Only Unassigned, CALE 350.1.13.10 [facility] 4.2.7.2.686 Darío as [phone] [address] 2022-02-15 2022-02-15 Outpatient Naomy SILVESTRE [facility] [id number] Univers 00:00:00 00:00:00 TAMY hill [facility] 2022-02-15 2022-02-15 Outpatient Naomy SILVESTRE [facility] [id number] Univers 00:00:00 00:00:00 TAMY hill [facility] 2022-02-09 2022-02-09 Telephone [facility] [id number] Univers 00:00:00 00:00:00 Tamy PARDO 350.1.13.10 i ty [place] [phone] La dical [address] 2022-02-08 2022-02-08 Orders Doctor KIERA [id number] Univers 00:00:00 00:00:00 Only Unassigned, CALE 350.1.13.10 [facility] [place] [facility] 4.2.7.2.686 Darío as [phone] [address] 2022-02-07 2022-02-07 [facility] [id number] Univers 16:15:00 16:15:00 TAMY hill [facility] 2022-02-07 2022-02-07 [facility] [id number] Univers 13:45:00 15:08:28 TAMY hill [facility] 2022-02-07 2022-02-07 Office [facility] [id number] Univers 13:45:00 15:08:28 Visit Tamy PARDO 350.1.13.10 i ty [place] [id number] [address] 2022-02-07 2022-02-07 [facility] [id number] Univers 13:45:00 15:08:28 TAMY hill [facility] 2021-11-02 2021-11-02 Orders Doctor KIERA [id number] Univers 00:00:00 00:00:00 Only Unassigned, CALE 350.1.13.10 [facility] [place] [facility] 4.2.7.2.686 Darío as [phone] [address] 2021-10-19 2021-10-19 Outpatient Naomy DE PAZ [facility] [id number] Univers 10:20:00 10:20:00 BLAIR ity o f [facility] 2021-10-11 2021-10-11 Video - Russ, [facility] [id number] 14:00:00 14:15:00 Telemedici [facility] 2021-10-11 2021-10-11 Gifty - Russ, [facility] [id number] 14:00:00 14:15:00 Telemedici [facility] 2021-10-11 2021-10-11 Outpatient CARTER BRIONES [facility] [id number] SLE 13:18:39 13:18:39 [facility] 2021-10-11 2021-10-11 Outpatient CARTER BRIONES [facility] [id number] SLE 00:00:00 00:00:00 [facility] 2021-10-02 2021-10-04 Inpatient ER EDWAR [facility] Gastro [id number] SLE 12:35:00 14:04:00 [facility] 2021-10-02 2021-10-04 [facility] [id number] 12:35:00 14:04:[address] [facility] 2021-10-02 2021-10-04 [facility] [id number] 12:35:00 14:04:00 Encounter Marcelina Saleem [facility] 2021-10-04 2021-10-[address] [facility] [id number] 08:12:00 09:02:00 Obey Noble [facility] 2021-10-04 2021-10-[address] [facility] [id number] 08:12:00 09:02:00 Obey Noble [facility] 2021-10-04 2021-10-[address] [facility] [id number] 08:00:00 09:00:00 [facility] 2021-10-04 2021-10-04 Surgery Ace, [facility] [id number] 08:00:00 09:00:00 [facility] 2021-10-03 2021-10-03 Outpatient [facility] [id number] [facility] 00:00:00 23:59:00 [facility] 2021-10-02 2021-10-02 Documentat [facility] [id number] 00:00:00 00:00:00 ion [facility] 2021-10-02 2021-10-02 Documentat [facility] [id number] [facility] [address] 00:00:00 00:00:00 ion [facility] 2021-08-10 2021-08-10 Telephone [facility] 1.2.840.114 [id number] Univers 00:00:00 00:00:00 Tamy PARDO 350.1.13.10 i ty [place] [facility] [id number] [facility] 2021-08-04 2021-08-04 Outpatient R [facility] [id number] Univers 14:54:13 23:59:00 TAMY itjoshua of [facility] 2021-08-04 2021-08-04 [facility] 1.2.840.114 [id number] Univers 14:54:13 23:59:00 Encounter Tamy PARDO 350.1.13.10 it[place] DESTREHAN [id number] [facility] 806 [place] 2021-08-04 2021-08-04 Orders Doctor KIERA 1.2.840.114 [id number] Univers 00:00:00 00:00:00 Only Unassigned, CALE 350.1.13.10 [place] [facility] 4.2.7.2.686 [place] as [phone] [address] 2021-07-29 2021-07-29 Telephone [facility] 1.2.840.114 [id number] Univers 00:00:00 00:00:00 Tamy PARDO 350.1.13.10 i ty [place] [phone] La dical [address] 2021-06-06 2021-06-06 Out[facility] [id number] Univers 10:15:00 10:15:00 TAMY hill [facility] 2021-05-27 2021-05-27 Out[facility] [id number] Univers 00:00:00 00:00:00 TAMY hill [facility] 2021-05-25 2021-05-25 Orders Doctor QURESHI 1.2.840.114 [id number] Univers 00:00:00 00:00:00 Only Unassigned, CALE 350.1.13.[address] [facility] 4.2.7.2.686 [place] as [phone] [address] 2021-05-19 2021-05-19 Office [facility] [id number] Univers 14:42:06 16:05:39 Visit Tamy Hernandezton 350.1.13.10 i ty of [place] Profess[place] [phone] [place] dic[address] 2021-05-19 2021-05-19 Outpatient [facility] [id number] Univers 14:30:00 16:05:39 TAMY hill [facility] 2021-05-17 2021-05-17 Telephone [facility] [id number] Univers 00:00:00 00:00:00 Boaztimo Hernandezton 350.1.13.10 ity of [place] Profess[place] [phone] [facility] 059 [facility] 2021-05-17 2021-05-17 Telephone [facility] [id number] Univers 00:00:00 00:00:00 Blair José Miguel 350.1.13.10 ity of [place] [phone] La dical nal 9 [facility] 2021-03-31 2021-03-31 Telephone [facility] [id number] Univers 00:00:00 00:00:00 Boaztimo José Miguel 350.1.13.10 ity of [place] [phone] La dical nal 9 [facility] 2021-03-14 2021-03-14 Emergency JamesDustinAddison [facility] 1.2.840. 114 [id number] Univers 13:23:00 16:01:00 Eleuterio Wang 3 50.1.13.10 ity of [place] 4.2.7.2.686 [place] [id number] [facility] 084 Branch 2021-01-17 2021-01-17 Outpatient R REPLACED BY [facility] [id number] Univers 14:00:00 14:00:00 BLAIR hill o f [facility] 2021-01-13 2021-01-13 Orders Doctor KIERA 1.2.840.114 [id number] Univers 00:00:00 00:00:00 Only Unassigned, CALE 350.1.13.10 [place] [facility] 4.2.7.2.686 Darío as [phone] [place] [address] [place] 2020-08-02 2020-08-02 Out[facility] [id number] Univers 08:00:00 08:00:00 SUKHWINDER ity of [facility] 2020-07-19 2020-07-19 Office [facility] 1.2.840.114 [id number] Univers 10:39:13 11:26:38 Visit Blair Pardo 350.1.13.10 ity of [place] Profess[place] [phone] [address] 2020-07-19 2020-07-19 Outpatient R BALDEV, [facility] [id number] Univers 11:00:00 11:00:00 BLAIR ity o f [facility] 2020-07-19 2020-07-19 Orders Doctor KIERA 1.2.840.114 [id number] Univers 00:00:00 00:00:00 Only Unassigned, CALE [id number] ity of [facility] 4.2.7.2.686 Darío as [phone] [address] 2020-07-15 2020-07-15 Telephone [facility] 1.2.700.002 [id number] Univers 00:00:00 00:00:00 Qianaheedtimo José Miguel [id number] ity of [place] [phone] [address] 2020-07-15 2020-07-15 Telephone Argenis Carbajal 1.2.892.012 [id number] Univers 00:00:00 00:00:00 Sukhwinder [place] [id number] it y of [facility] 4.2.7.2.686 Darío as [phone] [address] 2020-07-02 2020-07-02 Telephone [facility] [id number] Univers 00:00:00 00:00:00 Sukhwinder [place] [id number] i ty of [place] [phone] [address] 2020-06-01 2020-06-01 Office [facility] 1.2.840.114 [id number] Univers 13:36:20 14:19:54 Visit Sukhwinder [place] [id number] i ty of [place]2.[place] [phone] [address] 2020-06-01 2020-06-01 [facility] [id number] Univers 13:40:00 13:40:00 SUKHWINDER ity of [facility] 2020-06-01 2020-06-01 Telephone [facility] 1.2.003.750 [id number] Univers 00:00:00 00:00:00 Sukhwinder [place] [id number] i ty of [place] [phone] [address] 2020-06-01 2020-06-01 Orders Doctor KIERA 1.2.840.114 [id number] Univers 00:00:00 00:00:00 Only Unassigned, CALE 350.1.13.[address] [facility] 4.2.7.2.686 [place] as [phone] [address] 2020-05-14 2020-05-14 Outpatient R [facility] [id number] Univers 10:45:00 10:45:00 EILEEN jerez [facility] 2020-05-13 2020-05-13 Telephone [facility] [id number] Univers 00:00:00 00:00:00 Qiangjun [place] [id number] ity of [place] [phone] [address] 2020-05-09 2020-05-09 Telephone [facility] 1.2.110.863 [id number] Univers 00:00:00 00:00:00 Qiangjun [place] [id number] ity of [place].2.[place] [phone] [address] 2020-04-23 2020-04-23 Telephone [facility] 1.2.002.423 [id number] Univers 00:00:00 00:00:00 Qiangjun [place] [id number] ity of [place].2.[place] [phone] [address] 2020-04-09 2020-04-09 Outpatient R [facility] [id number] Univers 10:00:00 10:00:00 EILEEN jerez [facility] 2020-03-26 2020-03-26 Orders Doctor QURESHI 1.2.840.114 [id number] Univers 00:00:00 00:00:00 Only Unassigned, CALE 350.1.13.10 ity of [facility] 4.2.7.2.686 Darío as [phone] [address] 2020-03-17 2020-03-17 Telephone Baldev [facility] [id number] Univers 00:00:00 00:00:00 Blair José Miguel 350.1.13.10 ity of [place].2.[place] [phone] [place] dic[place]al [address] [place] [address] 2020-01-12 2020-03-14 Telemedici [facility] 1.2.840.114 [id number] Univers 08:28:45 20:11:05 ne Visit Blair Pardo 350.1.13.10 ity of [place] 4.2.7.2.[place] [phone] [place] dic[address] 2020-03-12 2020-03-12 [employer], [facility] Room 1 [facility] 1.2.840.114 [id number] Univers 08:03:53 09:03:53 Visit Blair De Paz 350.1.13.10 ity of [place] 4.2.7.2.[place] [phone] [place] dicnv [place]al [address] [place] [address] 2020-03-12 2020-03-12 [employer], [facility] Room 1 [facility] 1.2.840.114 [id number] Univers 08:03:04 09:03:04 Visit Blair De Paz 350.1.13.10 ity of [place] 4.2.7.2.[place] [phone] [place] dicnv nal [address] [place] [address] 2020-03-12 2020-03-12 Outpatient R [facility] [id number] Univers 09:00:00 09:00:00 ity of [facility] 2020-03-12 2020-03-12 Outpatient R [facility] [id number] Univers 08:00:00 08:00:00 ity of [facility] 2020-03-09 2020-03-09 Laboratory Pc, Adc Echo Room 1 [facility] 1 .2.840.114 [id number] Univers 09:57:31 10:57:31 Only Blair De Paz [place] 350.1.13.10 ity [facility] 4.2.7.2.686 Eloisa Sherman [phone] La dical [facility]9 [facility] 2020-03-09 2020-03-09 Outpatient R [facility] [id number] Univers 10:00:00 10:00:00 ity [facility] 2020-01-12 2020-01-12 Outpatient R BALDEV [facility] [id number] Univers 13:20:00 13:20:00 BLAIR [place] o f [facility] Results Test Description Test Time Test Comments Results Result Comments Source PHOSPHORUS 2022-05-18 05:19:44 Test Item Value Reference Range Interpretation Comme nts PHOSPHORUS (BEAKER) (test code = 604) 1.9 mg/dL 2.3-4.7 L Improvement Lead ID - ROGERIO [id number] 17:28:43 Test Item Value Reference Range Interpretation Comments PHOSPHORUS (BEAKER) (test code = 2.0 mg/dL 2.3-4.7 L 604) Improvement Lead ID - HARSH Radha [id number] 17:26:26 Test Item Value Reference Range Interpretation Comments Case Report (test code Surgical Pathology = 104) Report Case: [id number] Authorizing Provider: Carson Mosher MD Collected: 05/13/2022 10:18 AM Ordering Location: [address] Received: 05/15/2022 07:38 AM Service Pathologist: Joanne Rubio MD Specimen: Biopsy, Gastric, gastric ulcer bx DIAGNOSIS (test code = [id number] 3220) FuZzEwMzNcZnRuYmpcdWMx IHtccnRmMVxlcGljOTYwMl zafaRhSKGugUGtG8Jpfqln RVfvIA0tHL3rdRwhnDSlkS KjMMKeCaPpx9zdz497rWCl s9oiQOLRrazgtDq4oQckC5 1dn5F6LibcV94ftRRrXHW0 NXHwXOJtnWSbIZGoZRC4NX ItbGGdH9mwAWUzXN8zztgp SHeaVFfeUSTzrKN7CQJgtS OkC8UdKFQgMFgoDURwgjp7 GmObRg5ecMNceCkaSHawHD OtIFFzTKriSXDpMuEgG7IN TUFDSCwgVUxDRVIsIEJJT1 WWNMymxYTbUBKgEL5gC3eN Q42AOhVXMuQFFNyDVIDWKD GIKfvBKJAkI4qEKUXQUYDO LZbDQEWFIEOLN7MqlOLqGS PkHP0kCj7aRX3MVEUVCI2I VDKNMTESMQsTA9tEDI9HXN FKW2GAVQADGAqxAMIpBSOo LSBOTyBERUZJTklUSVZFIE cKVOjAA5RFO1WXArZBYHvL EkvaMUgTAv9RBcpVAdqOJS BJREVOVElGSUVEIEJZIElN IPCGC8ULKHrPRRZiljzaMR RwA1DddDezbBLtTRJrHNCh sy78OTE9CqEum6G2ARF2DI WcAXEvw8grGQRfhOYfJfMg MzNcZnRuYmpcdWMxXGRlZm Qqa4jjr015bUWwr9hzVURu IvI6nWLiWLZewMVjW155LY UkMXusa6nad0OtJMKhdBMs x8C8SAEQcjcllGr9vNkmU0 6eq4B8CklxL4fdRIHtENYu F9NiTF3rAXDwPmb0GIC9DH T3VRFbFRZlP8ObQA3oFJWl zHNjSFa3p8kzwZlxHIPzNP K9h1icELjmgrQtGP8ois2v zVr7o5qhnqOpNNCzFRFnjB ZUSLUiJ5CsySfzKw1qfWj0 uRggAtymXUH8Cvj3ZD7cdz 40mmc8xXmfMZKrnopkUuD4 BJidCSTfwgozYGs4KTetSA PynFY1OQThlEJnG8HzVNOk ZY5lmzf8HTC7YGhyDZHjSo G7NUJbfTXrGSUjjFqgMVjp l907GWO1GmDwOO7cN8Hpw0 I4hE7tvHAdASLsdXMdBiTs ZKNhsy0asHLaFCnyr8JrNT W4fvA6gCKbpVSbEYGuNiG4 NAwcQQ5hus83OFTqEQP9aq 5ybGNccGdicmRyaGVhZFxw F0HsYGHky101GBQbG2DrAT Get0C3wgDpSmYfUPIjfIP6 dnF1KRYdQM0iblvfd6drQP msEPiuTFLpmnC8bcA2NGNo gEGpV3GnlU2hUQOcPR3npd cyl9bbTYG9XJbbPUPiRPN9 VqBiVSZrw1Cglib4ViEqr1 CluUGyLAmlM21ds527JDRs ikGpE0kkeFHgepuqtHKnzo gmAZtpdiU3TNXbGFjshsuw XILeKOpaI5tlMtEfAMHaoS kaDRxxw6HzKCLoZKDaEiAl pVEoVDQoMra5YLDkxCXeST UeCfRsE6zxwbniPvOKYLBe o2xjT8xhzTYCmVZxH5KdMU hvbmUgTGluZTogNzEzLTc5 HP61RMg7HSEbgr25 CPT Code(s) (test code h8fvwZFgWPEwzXG5FkMbBN = 3352) Bew0flk4MaqOGglZXoOZrr yOMxryVsjt76dKY5iC87GG 9uZDLbNmB0PZGgowJ0Ooz5 HWCzBXMrnSZcD097l2pem5 dzvfShhBN8xFauCYAsakix GcM8BBryZJFdwmjnPYd9ZD edNDQwcMY5SGMkdOWqX8Yn LTFwUY5qfqi4NKN3QUcqMZ NfPpS7QLIoiJHyEEYtpMch NMvgs699KIS2UqTzYNNxyy YybPzdmN6gOcVaBWA9XNTw XCZ6ADamJNqvUNUvmOTfdI == CLINICAL HISTORY (test t4xclTDtQMOugHW1ZwRjNT code = 3356) Vxp9pef3UzrDOkgMWmKYbv xJBobkVtmy59jBL4oB33AM 8aPDAsAmW5ZPYcijV9Pco4 IMXpBFYzeSUhZ488g3xmk1 nektZqqUW8yAhmVCEmlnyd PtA1UDqoKWItbblkMNy3FG myUUMchWW2SWOyhTNqW2Kf DZPxPH0zyoo5IWP3QQnbKV MoNfN9LWXmlSJlVOPakLgh AGcie212IKZ4ZqHvOYGzro DccOnuyO7pSiOvWOIKLEU1 tb3qbrJic8XjplWyWMuyfN 6lsdrqN7YfpPSamH== GROSS DESCRIPTION (test z6rkgAUtXPNgdGIEYFEiA4 code = [id number]) atjrZkCHRndWAgL3Eaihyk AOljCN4rJE3ddTvnnLBnkW VzKQ2HDVZdHrJrUCJedJGs fdFxAmThLXBfbJAzoGM3AG BeGL9ezadbYDrmGGthUZXv erX0IMVuaLTkV9YdENQpAS 1olkbmZHI7DLeusK3zzwJJ ZxhtAp8dcJLyaFizUyOgKc NoYXJzZXQwXGZuaWwgQXJp ABi5iH6SErvqH43uu2G6Ge j5HEEaUOZyI7TiUD5nHRTj jOZxL25QTsboGYM6IFMDUt bqAVYgLN1Mi7rpIRJiuTTt KPG2LPdftQZbLITyDVAmIW v7YONjDNmidXLgKU2bxMjs JazqcFqku1OhdCSmJZlaBJ CeAUDzLMgcTHWyFB9AEqXk LSWxPACiKonlWLa7ADd8GL 6ZGrHkVPHvHDu6ETR2CMLx TBo8EPncNO5ZLZGpVou4Ci XyVCD0QPZ2ALKpQPYeUxUz XGYgQXJpYWwgXFxmbCBcXG 8ryRfrfATkjuAPFcMKxZ5g o9yuCZcmr4TqlFIjPPZfmn ANClxlcGljTmVzdERvYzEg DQpcbHRycGFyXGxpbjBccm luMCANClxsdHJjaFxjZjFc ZnMyMCBSZWNlaXZlZCBpbi Zgb1PhMPvfizDhCLWroTSf IHdpdGggdGhlIHBhdGllbn FvL4H7pcFwQK2xDOSsSLVv E8XrPESmI26eWZMnnH9fNC DgPT6hALp3DIIzHWJlEoyj Y2NknFHwCxDlsN4il2yqDZ UoGFP5VERoszZie7D8XRKl u1C0SUFazuBtjBPmhNUbYI XddTMxOYUovDEeppwqTF1i JTLfEGS0Kj0fsZHeFJOjvj L2r4SeBNvjKNBiFtxbPXZt JBeouLTwYG1KV3fwaDPsQX XRbbK8mrwsOAqXOQYGKESu QVNDUCljbVxwYXIgDQpccG CeLP3MOAGqYHqndvTbJA8E KXNaGYbbGAUuxYTBLBW9JU 7kBYozzLJodtjzPGMmN2Oh U2RkryWrwOGeRHSrhjXjn0 rwTZU1CTRpvFCngWXlAqQp MsrnTGZ9WSkwg8skFRL2BG NsbXVsdDAgDQpcZnMxNntc YKXjF0RpD9OskhP5CCq5 MICROSCOPIC DESCRIPTION w6kujNKeYXIctWU8CxLuMG (test code = 3371) Tke0aqm5VinFSztNIgNAuv vAUsanHmvu05lXA9vE68VT 0vGAGeWgF4XHBisxF5Viw0 QPSrJOBwoNJkB742h8tcr4 rtvlTnpZJ7uNicCICrcmol ZaF1IHtnHTUhgkvjNWd6GC khRXMcjSO0SLBtzRUrA3Cy SJYcVJ7jefd8DZF6JDgbAE PqJyV2EMImiTQtVOImrRzo YBlcj943LAZ1BmYwADNwom HbxYqksY2dUqRoULOYZWYl y1PuBKPsDFXnim7= SPECIAL STUDIES (test d4sktSZkJGRikRT0HoQmLT code = 3376) Qen4unz3KnoFQnaYZqTLkm uRLhqnAazv62bWS5rE29AZ 3mYUEzWkB3FSLhinO4Kbf1 HFYxGWGozPGrA566DDPrCP IogYmmhuz2mV44FUMrxG9p dGJsIDtccmVkMFxncmVlbj WhOll7UFD7gUvtZHUwnkii OeE1YJvjHSCeqvoiMHn5ON dgFJCykGF6YBQgwYNjI1Rc IXEtAJ5wsky3WNH1ELugGW FsUzM2HUSfrFPxEUBrxKlu STaga685AEL7UpCqXRWavf UwjUxgzT8qIqBqFoAlBnrr ZjEgVGhlIGludGVycHJldG B8rU8iNB1tBZGovUVgB2Dw MMGbnbGmxLAwAXA9nHWmnP GfGJ4uATcciTBjq1eah7Bn S9hrwDbojXT0CR6jNEDfGP SkOYpmz9PazE1dWobmWTNe uKIkDLXcKZUAKCyKC60MSQ IEEEFlIAaPR6LHZJ8HZ9NB P0JFOI9HY98fQE1uRwNZMP MPEvYusWPvNGGxckNiP4Lm UFBvdtJZs445di0sWQTliI BtuiPYrJNbsK7hKEhbRZfp WFvdeCZpMQoiy4emYSTdv7 v5eCFyOURhvaKfn8cyASqv cmUgZXZhbHVhdGVkIGFsb2 0bGUisjUhjjBvbHGDdw2Jc uZnzj9YxUeGwOVcmb1JiY5 9udHJvbCBzbGlkZXMgcnVu MAEkk69az9vwYVPnXoK5mH MwhHF2tZOzvAWiq7BbpUnt GSJgu7hxIOXhay7qlagqkE Skf0EroN0myzkeKExopPMv dgGlLMHsy9k3iFTxNBYjFS BqSDkgkJz3IFZfk379ig5j ewR9mGRyNNP6EFwsSOAkYR BhcmUgZXZhbHVhdGVkXHBh cmGrUCTaeiEGhL19bx3dvM F1v1WhFU3uj8HvkDZ5FNYd wcwwBCkytXHbwUlfMvF2ZE AebBBlAp8jmUDpVRQ2KVSc jBemxcNEsP8rRZQqXAb7CA TdKiCjRnkphhYPFKBpZ6Je IBEwyuPdalohCWH4bD2gi1 u2LGehQc9tPVFqxuves0nf wyNilMGrx8MrVNEnkpOub8 BlZCBhbmQgaXRzIHBlcmZv ij7puzIeCTSsUAGoF0Jezr nmhEanexP9PUXgMGOoeXIu dQlfPRWyEFu4VDpeqkBln5 CuIvWzwqGrlKIthsZkQZ1h PRIybTQxelLqGTJ8FOLsZG HIPbBjPRDpj7LpYV3yKTEp cXdsCYWkhX1sx4KzVINui6 4uIFRoZSBGREEgaGFzIGRl dGVybWluZWQgdGhhdCBzdW CpLUJaFKKlRO4eYKFqtpDd xJCqf6FacEWpzeIgp9Zxaq SlRPNdVEP9RjDWlMXocMJt fNAzujX7u3GwRXThdiHsdF iiwWHnzZQvqHOch2Duat6b FLMfh0henMrkHI3vsOKqRA ByZWdhcmRlZCBhcyBpbnZl b1BzS3B6tP1xRUzso5QiUn 5pGYXbl4LvvzLgQmLYbSbw YHtqHu9dIOJasghqxQFiZ6 VydGlmaWVkIHVuZGVyIHRo ZSBDbGluaWNhbCBMYWJvcm D5l1T5TDybiRPeidFaLO32 BHPyXZ2tnLAhqGAuy8LzXZ p1SULtK3nYCA74TLfhDNWl cXVhbGlmaWVkIHRvIHBlcm Sykq0qoPdtnDMhs50elYQ0 rUT9OLJjjI4hM0EvYVkbQp 9eUGFktoefrMIgkFnfOc5g cGFyfQ== [id number] 17:26:26 Test Item Value Reference Range Interpretation Comments Case Report (test code Surgical Pathology = 104) Report Case: [id number] Authorizing Provider: Carson Mosher MD Collected: 05/13/2022 10:18 AM Ordering Location: [address] Received: 05/15/2022 07:38 AM Service Pathologist: Joanne Rubio MD Specimen: Biopsy, Gastric, gastric ulcer bx DIAGNOSIS (test code = q1dbdBWnQRFdp7rqVQFzfT 3220) FuZzEwMzNcZnRuYmpcdWMx IHtccnRmMVxlcGljOTYwMl vgrwRiDFNnqEGuO4Ulcwfm EKwaVD3qZP9ssMnadKUesN CpVCNlMkQsd4aor078hUMe a8ggGVRQockmiVk0jWnfH3 8xz1R2ObziU02xoVJxQPA8 IMPqSNXqpXGrGYTqJIS4JD ObcGSxY6abFHNcXZ5aahcg RLfmXNmaKTIvjMB5KYVjtI CbJ6HcKPWwUWjgYTAnwus9 RnHdFc5onOIxsPnjSNtuOH ZvEQIvIOdyPSKxGpSxP3EM TUFDSCwgVUxDRVIsIEJJT1 EZOTaoyPDkDLMqLF8wN6wC L42ZLsVBGbFTYHtJLVPLGW FPPwcWKRJsX6yACLGAIUNG LJaBZOPGUIRUX6MgnLNaRV AoVX1kLs0zSL8AKCBEFM9R UAPAORUUJAzZL3tAOX4BEW KUI1NUSAKXTXrmINBcPBEp LSBOTyBERUZJTklUSVZFIE wHOOfHF3MHJ3XPRoHEVAvJ WkalQGhHTj9NMsrBDspGLC BJREVOVElGSUVEIEJZIElN OXDNH2UGOLsYNMXfiyxbUE BnG4RoyMxiaXNkHYZdXSIv bp39FSX8RoPcz3X4XMG8AW OcSKRqo8hkXUJygYEyYfJm MzNcZnRuYmpcdWMxXGRlZm Qek2fqc410fYYna9rjCVBp RuW7tANqCDRmgAYmH461CI ZcTVrru6uxy0RxCOCteQZn p2F1ZESWjpzjsJm9jJcsB0 2dp4B9BaotW7oyQKGwHTRu C2JwIX7gFUDnAog8YSN7OT W4JSOaMMJwP9TdZN1lZDKf iZLiCBv2q9wohDduAQXgOJ T4m9guEXncptZaHV6axh8q qWp3j5qxpaPrTUNfFRHgaC DTXXDnY3XlnDvfRk2rpTe2 cWheRjakROV2Fei8DW8jmt 17iow8uDyaPPPsbonmItM4 LNqtNLTnfkhnICv2VMabVL QmvJQ4UAVijMAvA1YgUTVq JT6ajnd8NSA8EQlkJKTxGk Y5LJSokIJvQMDaaClqLRaq x761AFD8DgGlSG6iK8Ivt1 M2zZ8fyQIeALYimKEbRlKs WWVsko2lfPZhQJwmr3PnUZ D5piT5uRIxnRWqRMXsQnV3 LGtzJM1rvo31GZVbVMB4zc 5ybGNccGdicmRyaGVhZFxw T0JvFLGnm997NYLvF1LmYG Ona1O6hhRvFvXjLBNopHX9 qhO2TXPzOR3wyvrkw0snMM joFLeuSVCfpyB6jkP1IMOx yRQhP4OsoH1xOIIyIZ8vlw zcm2wtLTF9FAoeHQIkUJX2 AsPxDJDax5Nwqws2IbXbf3 NhpXEpLWliZ55ea735EGGk toKrT2diuJZtixyfoHGgib dtTTpwqjB9VSRtCPsfrdep WJAsYWhvD8qrTbEaGRNumC grMSpfm4IoUQHgAKOmScCx eFUqMLHnCkn7VMYbaOKsJE PrYgNwG7meovncVrOZDSPk k8riW4jqcJFAuTRxP6HqXW hvbmUgTGluZTogNzEzLTc5 EJ83YFm3ULHduf79 CPT Code(s) (test code p9egkLOdFJPfxAG3VzEhNC = 3357) Igo9pus5CxpVNbxTHgHZmb rZZhrkSqck21mSW2eM95PI 3tNRKvHtA1KPRslzH6Awg5 UJOiZZTcgNHuJ578r8pdu6 katjHtpRN9fGonUIEnpbic FnW0OVmvKEOpcpxbXUf3ZD hkAVZpkKV3OXAnhJTcK4Ed HWHtSS5tojd7RGJ9PDsjFZ KgTpI1JKTjcHZeKPQhkXyk WIzzl328TMN9MsDxEIFuvh FoyKxafF3rYmSmKXA8IDUx MJJ8SKpvTAakYDEszTQejQ == CLINICAL HISTORY (test s2ttiKWhQTPreVO8ZhPtVE code = 3356) Fsw3vfb0CuwGHfiVSvBJyf mLYuotFlxd12rHD1oW05UY 8mOGWeZmX5ROQptaV8Btd9 URDrELVggFFnN581m5xvr6 rgzvJyyYX7kDkgIYYrvlvp AdB8WBrfWIYseuocGCb8WW daFLLkhWL3LUJmmWXqX9Eo QYLaXM5mggb4PDE4IAunLO SjRaI7TCNneNUaQUZvpLac VGima446OHE1DuVsIRHznk PiyHsfeM0tPyUrRGOHHVN8 vg7duuQjz9WanaHvIAvlvG 1ajtiiB9BywGMuxO== GROSS DESCRIPTION (test p9wswLRgCUFjwUFWBXGpU5 code = [id number]) oyjiOzSGCwyGKvI2Dxpkqx QMyeJK5aFW6alXwunSNjcV JeGS1CFDXgSmDvRNKfhUEv oxThSyVdAMBxqPNhrIT3RJ MrEU8eoxzvSTsfUAjyZPZq miF0HVSakXBiD1XmBRAvSY 8knxicYHA5EIdhaX5plqEZ NcagWn4kmHYarBvwQzPxVp NoYXJzZXQwXGZuaWwgQXJp RNp7rE6OOypoK68da2N8Zv d6YHNkALHrL1DrNF8iTGBy kYNcM43FSculXNE6UKHRMp vrENXiMZ4Ty6meIKVfxSPp PKZ6ULqlnXPaHDJcQSWsRX s7HCFkPVczuRHpDN2lqChu IxbibImgv2BljKBdEReaLP OuXDSiOQtnZXPcXK7OBbWz TDKjIHCsRdfyWQc3ADf9FJ 7PUxHoBCOaQJs1UQK3SGEk VJi4XMxpJR1DFWMfWft7Ou NtFYD5KCL6AUAnGBRzTcBe XGYgQXJpYWwgXFxmbCBcXG 3euZntuQObboEWUaMNaH4y n8fgDNiud0TvhTDwSEZzui ANClxlcGljTmVzdERvYzEg DQpcbHRycGFyXGxpbjBccm luMCANClxsdHJjaFxjZjFc ZnMyMCBSZWNlaXZlZCBpbi Lll1YbMKwubgJqXRIjuYGs IHdpdGggdGhlIHBhdGllbn FhH9V7hyDmKB0wVRRhLMVh G3ZlXHMwO99aGHDutG7fSF ZpUL6vJTo1OTPlAVLuHifp O3YfkOOfVaQdzH3fc7ycQE ZpAAN1NMXhfrSyx7B8VLWb g7R7MBVyvoIxzQRxaAStFG BfiEAuPIPdpYNbrgabAO9p QEZeOHI4As1xbQRnUDRvos V8i0SoGAloARZaXlvnQFRs HOdttJRmRK7LK3tygWAtTV XPbdJ1amrxUMhYUDRJAYBf QVNDUCljbVxwYXIgDQpccG NpEB9YVWHhCXqjmlKtCW8L HTUsRNzkELDdxIAQRST2GQ 5qFDuawUXydehvSPIiS6Fb O8ZxegLwpOAwBVOvsqXvs6 xsJAR4ALVesENxhDQnZuWk YipzYIG9DOnxx0mcUSW2CE NsbXVsdDAgDQpcZnMxNntc OHXiU2PdZ4BshdV2ERq3 MICROSCOPIC DESCRIPTION v8ionYKeHCWtdDO2JbCvJC (test code = 3371) Oua4cse7FuaWTlhDFhNGux zOFldoPwhg75hBU7uT93BE 5nLQTmKcY8BINtukG0Ekx4 IRSyKGBuhBNvV364n5jyc5 fykrVmpAZ5hJwvKVZllflx GzV2TRmzUSSgljglZCu3VH aiZOKmaJK9FTPpxRNnD9Gd FZMcQC4pokl0QCY9STfgPW TqLlK9QAOmdDLiQVGbdSzp THacd689TQC5NfYkZMOpbs RveEoubL7dOsSvYLAJGBSj j8UxDINjNJXskq1= SPECIAL STUDIES (test i6oysNJzWUYzcWK7NlTpHE code = 3376) Kmj0kdu9VsmSVceHVgLLgm bPAbruQhpb01vEQ9yX49DG 4tXEScSeQ8JCQlfiR7Olp7 DZDbLOQykNJpA329QRZiTJ LddRahbbm1zR01IWIgiQ3n dGJsIDtccmVkMFxncmVlbj SmRcg6HSW0gUjaXUPxyzrb TaN4VNciXIXgvkvjEJp3TB vvRTOaeVO8BLLioKCcV1Pd OSOfIH8ixhy3YDZ9HQghRP AvGpX6QPEyvLWtEFUlyRkh TOgxd501FGD7MmZfBQKkrh XhrCnurL8rQxDjJvEhBpth ZjEgVGhlIGludGVycHJldG K2gF1zEJ9jGVMhfJTkV8Dc INWqzrHwnAWcESV5vHVfoW HuGR3wXVvmkHQux0pdm4Zi R0qguIwcfHA0CX4eMNPeDZ XaLBhno9AvgW1jYgtzRJUz kUSlZZBjFOXBTHaKL33QUC VXPYMtZPoNU7AWYL6NT4RC W5DQHH1RF82lMB7fRfOLGU LQBjZdwLZnYJGdqyEsO1Zb RMLztdZZa066by6ySDYspK BzudXZmUAsiL9aADeaDHzn BTiqkYAnTJtxi8ssSXOdj5 b3ePJsPZAtneImk5bcKIms cmUgZXZhbHVhdGVkIGFsb2 1vUDucrTyqhEwuPELhk2Vq mZhms2JtTaZgBOofq1UyF1 9udHJvbCBzbGlkZXMgcnVu FJZyo52yx0dpXGLmYkC0bL JboUQ3pLKuhFRvz3OpbLif MBLct3guDIQsup8bbwpcfV Kwp5AadR4wukdtLYhwvWUa qsMcYIIdv2p6lKHnYZKkPB TmDClhlTd3DXKuh529yn8t bwR4zJQpOUD0WLolKDQeBX BhcmUgZXZhbHVhdGVkXHBh vjLlVWVaonMUyH62pr2gaO P9m5ShWJ9yb0ZyuEG1XUAh kvsmNVdwvUIzhJojOwU5ZN OiaTEmFw3ahQLpQUR3IYZx sLqeddIHzM4kZOYhWQx7NM VeZzWhBkiwexNNJOOsI7Rx FCRwynCnlyozMOG4jJ8gg6 o9QUaaWw0zRPZprfnay4ea paUhkJWdw0OkOXDiypYix2 BlZCBhbmQgaXRzIHBlcmZv wn9zxjVcEMJiRTGvW2Zfuz ggoNebbvB7OLGnBYMxfPKc aDevGNVzATt4XZwxbeTzz5 LoEtUwdkMpqZOrafZjJW6s DQNksCLzztYhGWU9GIMxLE UFHzLkVZBpz7JcXW2tEZMv bGeqUYMrfP6mp3OwYJYli9 4uIFRoZSBGREEgaGFzIGRl dGVybWluZWQgdGhhdCBzdW OrCWXbOBCtLI8eCLYkhzJm qPGgk5OhgXSqfgBvv4Bych LxXGVwGTB6ZhYXbDSfpLIk oAGvqmH7v9RsEFJoghEyxM beyDPjrPBlhOOoq2Mfwi1u VLFqc6cfxIywWK8qvUWhSI ByZWdhcmRlZCBhcyBpbnZl s1OyO4U6rB2tVEaug9YkOf 8eRGCck2XpogJtTfYUbOro NKlhDv8xXRXmaalmrKOnH8 VydGlmaWVkIHVuZGVyIHRo ZSBDbGluaWNhbCBMYWJvcm Q0i3D7NVvffXVomwQsQB68 DQKvAL7qlLVvjDMza1ZvEL d2LJWbY8jMQT51WUxtXGGi cXVhbGlmaWVkIHRvIHBlcm Uiit5gwYejlQWxs04cxRR1 vSS9PEUmpG6cT2NtWTtbIw 1pUQKvxoigjOAbaAhrFq2n cGFyfQ== [id number] 17:26:26 Test Item Value Reference Range Interpretation Comments Case Report (test code Surgical Pathology = 104) Report Case: [id number] Authorizing Provider: Carson Mosher MD Collected: 05/13/2022 10:18 AM Ordering Location: [address] Received: 05/15/2022 07:38 AM Service Pathologist: Joanne Rubio MD Specimen: Biopsy, Gastric, gastric ulcer bx DIAGNOSIS (test code = [id number] 3220) FuZzEwMzNcZnRuYmpcdWMx IHtccnRmMVxlcGljOTYwMl sbivQhMOAvjCJyI0Uhfscf GMdcHC1pYE5otZvapUVhaS WyKJTvKrBbf4ntx404rOZp o0vkSRWMtnpjeAt9rSihS9 4rp8R5TorzW28joDZsUUN4 LPIkAMHueOTlEROrSMF6AG IawMCsV3ifPRSxLK0kwuxu XHccKAjhHDVtsQE1NABvhJ ZyC0LeALLgUAviHXPlnig0 KkFhWb8vgXYykGamCHtyRG FsJAIhHOufOPNgVvKgS7CP TUFDSCwgVUxDRVIsIEJJT1 IJUJpudBDrQEEiFY1tG6hN K22CRhTAIcIYIBsYZTGOFW RJAodMZUOdI7rOTSBYGMVL HMpJCNXIYIYKE5NflJTzGO DsYU4dZz1yIA3UMUDXYA8I HETKIIZHNFrYU2jCLB4XZP HRR7KXMEJPUWhmYGGtETFs LSBOTyBERUZJTklUSVZFIE yPKFkJB0BJT6LENkXLVAgB HwtlRMuQVw9EDmxRAwkYMP BJREVOVElGSUVEIEJZIElN JPZAF3OJOGpSPVQrsrszNU JcY1ZgiAqfjDMsWZEzRPRo fg96UDV5PmNte9N1XMV5GX ErPDMbt7slIVMbcBBkEuHm MzNcZnRuYmpcdWMxXGRlZm Wew2frc698xCBbv4miMANg BjB7iINeJIFcxEMeY178JJ HoFJxbf9mcn4JrHBJxwEZe m0G2PUXEdvigxMx8eObfI7 3jm2T3BovuJ0bwHOQoIKCx Y1FnWK1aYFTqBzz6LPX6LH F8UDPqEEHpL3QaJH8oBXPa qURqSAu3m6teyXlbPEXzJL X1y7gzONfwnsOtTK9qal0o aGm1z6khqpSpBBQcJKYiqS KJIHNfB0GvwGgaKb0bqSs4 dJljWmshESV3Tos3NO9umc 35msw8oGyuWMNsgnjgMkN3 MWdmUUXzbwntGPr6KDakPC SjxBB9YDGpxGUkH7IlHMOz VJ1xkzy5VXG4YTppKLQsLy D9LTDpeQXvYRMrvZsuDRpg e651QQF3ZaMuMH3hV5Zmm0 F9fU8ozCGrMHBqfRWrLoLb BFQver7ujMTdWNorn9YiJA O3thU5iTGwoQFqWGJnCwK5 UOehYK6ums94CEWeWGO4wi 5ybGNccGdicmRyaGVhZFxw Q8OzDLHjo113EHGqS9KvWW Jiz1L4frWaJlKjSIYtmTG7 giF8RDZhGY1plmsby4ywLD evDPvaHTHvjmL8knL1UKMi bNFhF1WfcW1mFQTfPH4rez xzc2ifESM2WOquZKZsLMD2 AdZwLVHym2Qhbbl9OvJls0 JvkWKhVDjvY60cy100TOBn kpWqC0awfITlmavvqYZvoq emBNkrwbA6RSWkOHoxzovj QVAxDUwsW7abFhAeXZXigS avOCqqg0RiMURpMRIuLoWd gSKwDXVlWlw8UFXfeGLeFX BsBmSrD7dlmdbpTjKXJERg m4wxI9iapAWUrVZgE5GfEC hvbmUgTGluZTogNzEzLTc5 RU94KKk6ZLZwlc78 CPT Code(s) (test code a3wvbRVfYGNbgBJ0YnTbSS = 3357) Bzg4yvf4IvmXToeAUnVQjf rIDrinBqyp58lRI7gN43QH 8iHQRaNoP7MUHbbbG3Esn5 XYAqGMVhaBDhF482q3tto5 vmdxTtqQD2wApjCQSazjul YzS1FTnfYQOpxufxPRx8LN wgOOFklIE0TOTxhGNrK9Am ELKyQH2bggw5NOP7SBifTA HvBwJ7ZTPylISqVRAtxJub MKkxd218TCX3MmKuKUYprq WhxKjomO9vSjOcGSL7PQJr GIZ8EMajBBpyAGAjqBKqjD == CLINICAL HISTORY (test w1cfcTQjWLImwNU2IvGmGQ code = 3356) Iye8dbc2XwbQTgpMWiEVns oJHxsbOulp00mYJ9uH42CJ 4pUKDyYkC7EWByhbW8Ydt6 IMYuPRLptINrA965k6ugl4 dykiNlnZX4hQzmPYOlvdhm OnN1IUrjNHPvaljjNZx4VM ueVMHqwBK1DQArvUIuF3Yj VHFmIL4lrxd7JPK9KDctWZ NoMqC4AJYrkGGvAMSulPhy QOkol715CTX7XpSaDUKoso ThsKgeiV9sCtVlCABOCLD4 mv3gzfNkp3LqmxXoYUrdaQ 7vzwbmK5OuwSUzmN== GROSS DESCRIPTION (test n3ektDEkSXBkvAQPTZUoO9 code = [id number]) nzgcVfXZXgiECwY7Ggmety QRduVP8vEA6qyFrqbGWjtI HfMO8QBKNiLaZuBKUkdEHu clBsVdOwUNNrvOQhkVH6RS OrHC8iwoglICgwMQmkAKVv feP7NBTgcETxH8EdMNAzRA 0mrlenTJS5BRnyvU9rfnZQ SeacHo5ftDOmsKehAiAkMa NoYXJzZXQwXGZuaWwgQXJp ZOa9wQ4QXctmG99pd3U0Nv p7IVIhFCFeO5GcMG3nPVGv eKKzR61IHzhnTDD1JZLTQo lvMPJeVE6Tk4ziMYQhdDPx DXS5WQpiuANuXAHgEARpOS v7UMNqCLjduIXoHB8tzIwt JyyllWuit7UdmWGvDMdzOD LgHERoPXivJKMpNG2NAeKl CAAfSSMzWqguCBf3ZMu7QB 8WRzFaTCNeSAt6VFF2VZPk TWw0TVruWH4CCNAkQuf8Um HmTYH6JOX1ZUGtOLWzJzRr XGYgQXJpYWwgXFxmbCBcXG 6ooAkfkUGmsdUQVzBBwV1v c4amCEjcl4ZicYRzELQdqc ANClxlcGljTmVzdERvYzEg DQpcbHRycGFyXGxpbjBccm luMCANClxsdHJjaFxjZjFc ZnMyMCBSZWNlaXZlZCBpbi Ugl5DmBJpawbPfSEBumDIx IHdpdGggdGhlIHBhdGllbn LmN9J9xsEfYZ5rJOYvZUDk W6ZmHHPzG42uWSYptG5tFX IcFR5aVZj1SCBeBRHdZodf P0YebOWaFvBviH6in7ovBY ObBBS9WBWaevWnp0S5LEVd n8E6XIJkhaNtrUWzhZWpFW RhsUIkUSFqkCMbaflgDB5i BPMrOCB9Ds5mgULoBBOmav M1p4HtBXyeAZYpFaygFYQx OUhtvXKfGL6MO5dxcSAoEJ ARmoH4qnwhOByBPJQDTNJw QVNDUCljbVxwYXIgDQpccG PaQT3KZFBtUAjkdvUxMT8D IUOqPSdaDWGzwZNDDFP1JV 9hFVlgwABolcxbDQXxX6Tw E3RibaZjyJNaCSJjyqWxr1 mjOQH9AIOhqPFfcTQrVbIm XzitPEZ0OPvoc3huPMX1DJ NsbXVsdDAgDQpcZnMxNntc RBKqB6RbT7DnbeX2ECe2 MICROSCOPIC DESCRIPTION y0snmRTfJPKteAX4MmIeWH (test code = 3371) Nvn1nmc7IcdGVobJMrGZxj dPJjykJgtn31cLS7iT05BQ 9xZUCbUmJ0TGJvebS6Whw7 WFHePOGzmRCkG276m7lxr6 oqtlBgmWW3iEgbJXZkcxet LlN5ETfaQFVanqkhGKr8XL dzLOCljHF9MARhmQJxK0Th TLHyNH7svka5MYO9HMjjUH HhUtB4PHPwkPMuRYRmwFbk ONyty571LFV1ZtErTVRfwl OmcZeoyU9zZdSrZYGBGOJw w4KkNFFlCTPriv3= SPECIAL STUDIES (test k8josDOtHVDmbLF9JfIqYC code = 3376) Twy7xzb7TokVKrtERgFPnx eQFnsuRwle30uUA1bR47AC 1pFGPmVqP5JRUoxtO3Kzu9 LZUcDPDakTUoW010NBRpHN HpsUaddje1wP63JHJmzO6u dGJsIDtccmVkMFxncmVlbj TnGnv0KHJ4lXpwQWDyzxzv EdM8BBuwOTCpsfvhIUj2SK whQRMgiYA6SFSjzJNaV3Wt CWMyJV5ykjj2WRS0KJqrXO TiEiM1BBYrcUTaNNBnvFru GPctq117OAH4FjJlKUExbs TtqXmujU1xFpYxOmVeXxhq ZjEgVGhlIGludGVycHJldG A6nO8rWC6fSDSqnOOjK4Lg JAMzdaIwvUZgHGA8dETxzZ NlGZ7sEBtciFQlb7bvi4Ne P3nfdWsxnHH0QN6sRBKnHR TvUDsrz8JsnD6pJsdiKUVs zDZhMWFcCXXFMSuZT24ZEJ VHZLQiQTpWB0WUWC6QY7VB A8UDFI7OV25dTD5wDpPBHW QKHxJhtHPeEACojwAiL5Za VCQgipVMn123sl2oQSEldR IvdqCPoOBntR7cVZhdXGkf COverNVlCJaqx2vlJXPdq5 u4vMMrEIHghjQno6ifXVqy cmUgZXZhbHVhdGVkIGFsb2 9kZCrwfQeiyRmdVCJxh2Dn yTikq4KgUlCsLDhbj9AzP3 9udHJvbCBzbGlkZXMgcnVu YUMvs04zp3tzYTTzRaZ5jC DjsNV9hRVobWNme5UxpAun YPDys3xyQPKukk0ueannqL Mub6WouC7fbjwgJUshwUMf yePeNEXqu4i0jHDkSHPfCC JxLIbhbMn5DVOck708am9r kdB5kARhSHK1CPqaUEVhKY BhcmUgZXZhbHVhdGVkXHBh qrDqLPGphiTDoG60yp5trW T6v7KuNY2pj7IvdJF5SQDk orzkVMplvANnsNfuSwU5WL MqwGHwUc3hzHBsQIU4TYWi zUkygxSYwC5vIHXfBZl9IP KvYmNrJysqujWYXRXuZ9Ov THVubxUnbqtfEHZ5gA7de5 a3CZyjNe7sGEOukcahs3qe vfMbbFIjd4SnOGHaycBqq5 BlZCBhbmQgaXRzIHBlcmZv ma9kvrGuDWVnHQOtV1Uphh kuqCwuxxR6UISqYBLotGEz jRgeXRPjIYh7WOstfoCfg4 CkXlMvwbDtyHThgyTmBD9c CWQkyOVccsZcHQH3HOHbQE UCPkSkMIMsx4KxWQ3qVCIk aZqfARHblA0vt6YzOYUof4 4uIFRoZSBGREEgaGFzIGRl dGVybWluZWQgdGhhdCBzdW MtNKFiNSVuKH6tGDNdupUj mEGgp0FhvDJzojSku2Ddzh VaLWKaSLE8WrYNzLXuxEAj qZNxbqK0k4BcKDMjqrUpsE yppGIkpBMayVCrb5Nslj2v QKFzo6ocdXqwDQ7xiIWuGN ByZWdhcmRlZCBhcyBpbnZl u5MeE2E8lV9xRTelf2FuGx 4mAWKdb3YfzuPvCaIDvLzo UWfgRg6sZJHrhggstHNsH0 VydGlmaWVkIHVuZGVyIHRo ZSBDbGluaWNhbCBMYWJvcm V7f4Q0DTrgaLZrsvNrQD29 DLPnOW6zvCIeqQHfe1VvCU u8QHQiH0hJOA53KKoyJJZf cXVhbGlmaWVkIHRvIHBlcm Crih6idIoaqYPem48hoIY5 eOH2OFUahY4wZ5MtKDyqHi 0mENCkksyfaDBebIwnMa1g cGFyfQ== [id number] 17:26:26Surgical Pathology Report Case: [id number] Authorizing Provider: Carson Mosher MD Collected: 05/13/2022 10:18 AM Ordering Location: [address] Received: 05/15/2022 07:38 AM Service Pathologist: Joanne Rubio MD Specimen: Biopsy, Gastric, gastric ulcer bx STOMACH, ULCER, BIOPSY: - CHRONIC INACTIVE GASTRITIS WITH REACTIVE CHANGE - NO INTESTINAL METAPLASIA OR DYSPLASIA - NO DEFINITIVE HELICOBACTER PYLORI MICROORGANISM IDENTIFIED BY IMMUNOSTAINCC/pl Signing Pathologist Direct Phone Line: [phone] signed by Joanne Rubio MD on 05/17/2022 at 5:26 [id number]; [id number] hemorrhageA. Biopsy, Gastric.Received in formalin labeled with [...] evaluated Immunohistochemistry technical testing was performed at [facility], Pathology Laboratory where it was [...] code = 1.5 mg/dL 2.3-4.7 LL 604) Improvement Lead ID - HARSH MVITAMIN D, [id number] 04:50:55 Test Item Value Reference Range Interpretation Comments VITAMIN D 25-OH (BEAKER) (test 21.2 ng/mL 6.6-49.9 code = 2764) Effective 07/04/2017: Reference Range ChangeNew: 6.6-49.9 ng/mL Previous: 13.0- 47.8 ng/mLRecommendedVitamin D Target Range: 30.0-40.0 ng/mLOperator ID - HARSH M BASIC METABOLIC [id number] 04:42:29 Test Item Value Reference Range Interpretation [...] not appl icable for dialysis patien ts Improvement Lead ID - HARSH [id number] 04:41:33 Test Item Value Reference Range Interpretation Comments MAGNESIUM (BEAKER) (test code = 1.6 mg/dL 1.6-2.6 627) Improvement Lead ID - HARSH [id number] 15:45:36 Test Item Value Reference Range Interpretation Comments PHOSPHORUS (BEAKER) (test code = 1.4 mg/dL 2.3-4.7 LL 604) Improvement Lead ID - CHERIE BPTH, [id number] 15:40:39 Test Item Value Reference Range Interpretation Comments PARATHYROID HORMONE INTACT 187.3 pg/mL 8.5-72.5 H (BEAKER) (test code = 577) Improvement Lead ID - CHERIE BOperator ID - [id number] 15:23:15 Test Item Value Reference Range Interpretation Comments PROLACTIN (BEAKER) (test code = 15.91 ng/mL 3.46-19.40 758) Improvement Lead ID - CHERIE BBASIC METABOLIC [id number] 15:17:34 Test Item Value Reference Range Interpretation [...] eGF R is based on the CKD-EPI 1 equation that d oes not use a race coefficientEsti mated GFR is not as accur ate as Creatinine Larisa de la cruz in predicting glom erular filtration rate . Estimated GFR is not appl icable for dialysis patien ts Improvement Lead ID - CHERIE [id number] 15:11:52 Test Item Value Reference Range Interpretation Comments MAGNESIUM (BEAKER) (test code = 1.8 mg/dL 1.6-2.6 627) Improvement Lead ID - HCERIE BCALCIUM, [id number] 14:51:01 Test Item Value Reference Range Interpretation Comments CALCIUM IONIZED (BEAKER) (test 1.12 mmol/L 1.12-1.27 code = 698) PH, BLOOD (BEAKER) (test code = 7.32 1810) CBC W/PLT COUNT & AUTO [id number] 14:45:58 Test Item Value Reference Range Interpretation [...] 0-1 PERCENT (BEAKER) (test code = 2801) [id number] 12:56:32 Test Item Value Reference Range Interpretation Comments RPR SCREEN (BEAKER) (test code = Nonreactive Nonreactive 420) [id number] 05:36:37 Test Item Value Reference Range Interpretation Comments PHOSPHORUS (BEAKER) (test code = 1.8 mg/dL 2.3-4.7 L 604) Improvement Lead ID - ROGERIO LBASIC METABOLIC [id number] 05:36:36 Test Item Value Reference Range Interpretation [...] eGF R is based on the CKD-EPI 202 equation that d oes not use a race coefficientEsti mated GFR is not as accur ate as Creatinine Larisa de la cruz in predicting glom erular filtration rate . Estimated GFR is not appl icable for dialysis patien ts Improvement Lead ID - PIDARLING [id number] 05:36:36 Test Item Value Reference Range Interpretation Comments MAGNESIUM (BEAKER) (test code = 1.8 mg/dL 1.6-2.6 627) Improvement Lead ID - PIAYA LCBC W/PLT COUNT & AUTO [id number] 05:15:35 Test Item Value Reference Range Interpretation [...] = 2801) CBC W/PLT COUNT & AUTO [id number] 17:55:49 Test Item Value Reference Range Interpretation [...] PERCENT (BEAKER) (test code = 2801) CT, [id number] 13:15:00Unlisted Reason for Exam - Click Yes and Enter Reason Below->YesUnlisted Reason for Exam->C/f malignancyIs this for enterography?->NoWill this procedure require oral contrast?->No [facility] 1960 Sex: MFINAL REPORT [...] common iliac art chintan. Signed: Gwendolyn Anthony MDReport Verified Date/Time: 05/14/2022 13:15:06 VITAMIN [id number] 08:04:57 Test Item Value Reference Range Interpretation Comments VITAMIN B12 (BEAKER) (test code = 915 pg/mL 213-816 H 774) Improvement Lead ID - ROGERIO [id number] 06:22:28 Test Item Value Reference Range Interpretation Comments MAGNESIUM (BEAKER) (test code = 1.4 mg/dL 1.6-2.6 L 627) Improvement Lead ID - ROGERIO [id number] 06:22:28 Test Item Value Reference Range Interpretation Comments PHOSPHORUS (BEAKER) (test code = 1.9 mg/dL 2.3-4.7 L 604) Improvement Lead ID - ROGERIO LBASIC METABOLIC [id number] 06:22:27 Test Item Value Reference Range Interpretation [...] eGF R is based on the CKD-EPI 1 equation that d oes not use a race coefficientEsti mated GFR is not as accur ate as Creatinine Larisa jono in predicting glom erular filtration rate . Estimated GFR is not appl icable for dialysis patien ts Improvement Lead ID - ROGERIO LCBC W/PLT COUNT & AUTO [id number] 06:18:19 Test Item Value Reference Range Interpretation [...] code = 2801) HIV-1 ANTIGEN WITH HIV-1/2 [id number] 05:54:48 Test Item Value Reference Range Interpretation Comments HIV-1 ANTIGEN WITH HIV 1\\T\\2 Nonreactive Nonreactive ANTIBODY (2) (BEAKER) (test code = 2586) Improvement Lead ID - ROGERIO KEVON, TIBC, % SAT. (WITHOUT FERRITIN)2022-05-14 05:31:23 Test Item Value Reference Range Interpretation Comments IRON (BEAKER) (test code = 547) 17.0 ug/dL 40.0-160.0 L TOTAL IRON BINDING CAPACITY 211 ug/dL 250-450 L (BEAKER) (test code = 769) IRON % SATURATION (2) (BEAKER) 8 % 20-55 L (test code = 2590) Improvement Lead ID - ROGERIO LCBC W/PLT COUNT & AUTO [id number] 20:55:39 Test Item Value Reference Range Interpretation [...] code = 2801) 2D Echo W/Doppler(CW/PW/Color)2022-05-13 09:11:15Ejection FractionSLE ECHO [facility]LAB [facility] W/Doppler(CW/PW/Color)2022-05-13 09:11:15Ejection FractionSLE ECHO HEARTLAB [facility] Echo W/Doppler(CW/PW/Color) 2022-05-13 09:11:15Ejection FractionSLE ECHO [facility]ARTLAB [facility] CenterPT/[id number] 04:07:11 Test Item Value Reference Range Interpretation [...] mechanical heart valves.CBC W/PLT COUNT & AUTO [id number] 03:56:56 Test Item Value Reference Range Interpretation [...] PERCENT (BEAKER) (test code = 2801) C-REACTIVE [id number] 15:38:49 Test Item Value Reference Range Interpretation Comments C-REACTIVE PROTEIN (BEAKER) (test 6.76 mg/dL 0.00-0.50 H code = 676) Improvement Lead ID - BSLACTIC ACID, [id number] 11:15:35 Test Item Value Reference Range Interpretation Comments LACTATE BLOOD VENOUS 0.93 mmol/L 0.50-2.20 Specime n slightly (2) (BEAKER) (test hemolyzed code = 4312) Improvement Lead ID - HARSH MCBC W/PLT COUNT & AUTO [id number] 11:03:13 Test Item Value Reference Range Interpretation [...] 0-1 PERCENT (BEAKER) (test code = 2801) [id number] 03:30:48 Test Item Value Reference Range Interpretation [...] 22.5-36.0 (BEAKER) (test code = 760) PROTHROMBIN TIME/[id number] 03:21:06 Test Item Value Reference Range Interpretation Comments PROTIME (BEAKER) 14.6 seconds 11.9-14.2 H (test code = 759) INR (BEAKER) (test 1.22 See_Comment [Automat ed message] code = 370) The system [employer] generated this result transmitted ref erence range: [...] high >=90 G2 Mildly decreased 60-89 G3a Mild ly to moderately 45-5 9 G3b Moderately to [...] not appl icable for dialysis patien ts Improvement Lead ID - HARSH MB-TYPE NATRIURETIC FACTOR (BNP)2022-05-12 03:06:25 Test Item Value Reference Range Interpretation Comments B-TYPE NATRIURETIC PEPTIDE (BEAKER) 207 pg/mL 0-100 H (test code = 700) Improvement Lead ID - AMITADARLING LHIGH SENSITIVITY TROPONIN [id number] 03:06:06 Test Item Value Reference Range Interpretation Comments HIGH SENSITIVITY 7 pg/ml See_Comment [Automated message] TROPONIN I (test code = The system which 2245502) generated this result transmitted ref erence range: <=35. Th e reference range was not used to interpr et this result as normal/abnormal . Improvement Lead ID - AMITADARLING LThe NETWORK TECHNICIAN STAT High Sensitivity Troponin-I results should be used in conjunction with other diagnostic information such as ECG, clinical observations and information, and patient symptoms to aid in the diagnosis of AL.LACTIC ACID, [id number] 02:55:43 Test Item Value Reference Range Interpretation Comments LACTATE BLOOD VENOUS (2) (BEAKER) 0.71 mmol/L 0.50-2.20 (test code = 2872) Improvement Lead ID - ROGERIO LCBC W/PLT COUNT & AUTO [id number] 02:29:40 Test Item Value Reference Range Interpretation [...] = 2801) RAD, CHEST, 1 VIEW, NON [id number] 01:40:00Reason for exam:->sobShould this be performed at the bedside?->Yes [facility] : 1960 Sex: MFINAL REPORT History: sob. Comparison: 10/02/2021 Findings: A single view of the chest is submitted. The cardiac silhouette is within normal [...] TISSUE EXAM 2021-10-11 08:38:26Surgical Pathology Report Case: [id number] Authorizing Provider: Keiry Bello MD Collected: 10/04/2021 08:30 AM Ordering Location: [address] Received: 10/04/2021 12:15 PM Service P athologist: Tres Burch MD Specimen: Gastric, GASTRIC ULCERS BIOPSY STOMACH, ULCERS, BIOPSY:- CHRONIC ACTIVE GASTRITIS WITH EXTENSIVE ULCERATION AND GRANULATION TISSUE - NO DYSPLASIA OR CARCINOMA PRESENT - NEGATIVE FOR HELICOBACTER, HSV or CMV (IMMUNOSTAINS) Signing Pathologist Direct Phone Line: [phone] signed by Tres Burch MD on 10/11/2021 at 8:38 [id number], [id number] x 4Iron deficiency anemiaGastricReceived in formalin labeled [...] evaluated Immunohistochemistry technical testing was performed at [facility], Pathology Laboratory where it was [...] qualified to perform high complexity clinical laboratory testing.[facility], Department of Pathology, [address] [place] [address], [facility], [address] [place] [address], Tel [facility]West [facility], [facility] of [facility]ology, [address] [place] [address], NDAKV, [id number] 06:59:00 Test Item Value Reference Range Interpretation Comments ABO Grouping (test code = 2588) A Rh Factor (test code = 2589) [facility], [id number] 06:59:00 Test Item Value Reference Range Interpretation Comments ABO Grouping (test code = 2588) A Rh Factor (test code = 2589) [facility], [id number] 06:59:00 Test Item Value Reference Range Interpretation Comments ABO Grouping (test code = 2588) A Rh Factor (test code = 2589) [facility] 04:30[facility]23 Test Item Value Reference Range Interpretation Comments MAGNESIUM (BEAKER) (test code = 1.8 mg/dL 1.6-2.6 627) Improvement Lead [facility] [id number] 04:30:23 Test Item Value Reference Range Interpretation Comments PHOSPHORUS (BEAKER) (test code = 3.2 mg/dL 2.3-4.7 604) Improvement Lead [facility] MCOMPREHENSIVE METABOLIC [id number] 04:30:22 Test Item Value Reference Range Interpretation [...] S NOT APPLICABLE FOR DIALYSIS PATIEN TS. Improvement Lead [facility] MCBC W/PLT COUNT & AUTO [id number] 04:06:08 Test Item Value Reference Range Interpretation [...] PERCENT (BEAKER) (test code = 2801) CT, [id number] 18:57:00Unlisted Reason for Exam - Click Yes and Enter Reason Below->YesUnlisted Reason for Exam->abd pain, N/V, OSH CT with gastric thickeningIs this for enterography?->NoWill this procedure require o ral contrast?->No [facility] 1960 Sex: MFINAL [...] clinically or follow-up with endoscopy. Signed: Delio Quintanaort Verified Date/Time: 10/03/2021 18:57:32 Reading Location: [address] Body Reading Room Peripheral Blood Smear - Path [id number] 14:14:07 Test Item Value Reference Range Interpretation Comments RBC Morphology See comment Hypochromic, (test code = normocytic anem ia 2846) with moderate anisocytosis an d mild poikilocytosis, including rare to occasional elliptocytes an d acanthocytes. R are schistocytes identified. Minimal polychromasia. WBC Morphology See comment Normal in num julius. (test code = No significant 1077) deviations from normal WBCs subtype proportions. Lymphocytes wit h few reactive an d rare atypical forms. No immat ure WBCs identified . Platelet No ClumpingNo Adequate in nu mber Morphology (test SatellitosisSee with nor mal code = 2848) comment granular morphology. Occasional larg e and rare giant forms identifie d. Pathologist: Jaden Mayen MD (test code = (electronic 2849) signature) [facility] [id number] 14:14:07 Test Item Value Reference Range Interpretation [...] MD (test code = (electronic 2849) signature) [facility] Path [id number] 14:14:07 Test Item Value Reference Range Interpretation [...] MD (test code = (electronic 2849) signature) [facility]PER[facility] - PATHOLOGIST [id number] 14:14:07 Test Item Value Reference Range Interpretation [...] MORPHOLOGY No Satellitosis (BEAKER) (test code = 714434) PLT MORPHOLOGY See comment Adequate in n umber (BEAKER) (test with normal code = 284529) granular morphology. Occasional larg e and rare giant forms identifie d. [facility]-PATHOLOGIST- Jaden Mayen MD 6112 (BEAKER) (electronic (test code = signature) 2849) 2D Echo W/Doppler(CW/PW/Color)2021-10-03 11:14:47Ejection FractionSLEH ECHO HEARTLAB [facility]2D Echo W/Doppler(CW/PW/Color)2021-10-03 11:14:47Ejection FractionSLEH ECHO HEARTLAB [facility] Echo W/Doppler(CW/PW/Color) 2021-10-03 11:14:47Ejection FractionSLEH ECHO HEARTLAB [facility] CenterHemoglobin [id number] 09:56:08 Test Item Value Reference Range Interpretation [...] ADM Lab Interpretation Abnormal (test code = 15092-2) [facility] [id number] 09:56:08 Test Item Value Reference Range Interpretation [...] ADM Lab Interpretation Abnormal (test code = 29654-2) [facility]Hemoglobin [id number] 09:56:08 Test Item Value Reference Range Interpretation [...] ADM Lab Interpretation Abnormal (test code = 65884-2) [facility]HEMOGLOBIN [id number] 09:56:08 Test Item Value Reference Range Interpretation [...] 5.7- 6.4% indicates increased risk for diabetes (prediabetes)."Improvement Lead ID - ADM SARS-CoV2/RT-PCR (Asymptomatic ONLY)2021-10-03 09:18:48 Test Item Value Reference Range Interpretation Comments SARS-COV2/RT-PCR Negative Not Detected, (test code = Negative, See 08440-6) external report for linked test SARS-COV-2 [facility] PERFORM[facility] (test code = 86772-0) PETRA (test code = Negative result for [...] of the Act. Fact Sheet for Healthcare Providers:https://www.Business Texter/sites/default/f roc/product/documents/F act_Sheet_HC_Providers_L djl_WOVX-RxX-3.pdf Fact Sheet for Healthcare Patients:https://www.Syncing.Net/sites/default/fi les/product/documents/Fa ct_Sheet_Patients_Lyra_S ARS-CoV-2.pdf Performing Laboratory:[facility] [address] [facility] (Asymptomatic ONLY)2021-10-03 09:18:48 Test Item Value Reference Range Interpretation Comments SARS-COV2/RT-PCR Negative Not Detected, (test code = Negative, See 21408-7) external report for linked test SARS-COV-2 [facility] PER[facility] (test code = 13819-1) PETRA (test code = Negative result for [...] of the Act. Fact Sheet for Healthcare Providers:https://www.[employer]ter/sites/default/f roc/product/documents/F act_Sheet_HC_Providers_L ecu_YZSA-SvO-1.pdf Fact Sheet for Healthcare Patients:https://www.Syncing.Net/sites/default/fi les/product/documents/Fa ct_Sheet_Patients_Lyra_S ARS-CoV-2.pdf Performing Laboratory:[facility] [address] [facility]ARS[facility] (Asymptomatic ONLY)2021-10-03 09:18:48 Test Item Value Reference Range Interpretation Comments SARS-COV2/RT-PCR Negative Not Detected, (test code = Negative, See 35818-0) external report for linked test SARS-COV-2 [facility] PERFORM[facility] (test code = 55495-3) PETRA (test code = Negative result for [...] of the Act. Fact Sheet for Healthcare Providers:https://www.Promoco idel.Snatch that Jerky/sites/default/f roc/product/documents/F act_Sheet_HC_Providers_L qhr_KJQH-VnF-7.pdf Fact Sheet for Healthcare Patients:https://www.veronika del.Snatch that Jerky/sites/default/fi les/product/documents/Fa ct_Sheet_Patients_Lyra_S ARS-CoV-2.pdf Performing Laboratory:[facility] [address] [facility]ARS-COV2/RT-PCR ([facility])2021-10-03 09:18:48 Test Item Value Reference Range Interpretation Comments SARS-COV2/RT-PCR (test Negative Not Detected, Negative, code = 5221614) See external report for linked test SARS-COV-2 PERFORMING LAB [facility] (test code = 7400896) Negative result for this test determines that [...] of the Act.Fact Sheet for Healthcare Prov iders:https://www.S[employer].Snatch that Jerky/sites/default/files/product/documents/Fact_Sheet_HC _Jxncfxzri_Aury_ZEHO-RiT-7.pdfFact Sheet for Healthcare Patients:https://www.[employer].Snatch that Jerky/sites/default/files/product/docume nts/Yglo_Huxip_Nfxzbejv_Ojau_CPWI-EwE-9.pdfPerforming Laboratory:[place] [address], [place] [address]Ldaes [id number] 05:18:14 Test Item Value Reference Range Interpretation Comments Triglycerides (test 78 mg/dL code = 2571-8) Cholesterol (test code 89 mg/dL = 3-3) HDL (test code = 26 mg/dL 2085-05) LDL Calculated (test 47 mg/dL code = 52034-6) PETRA (test code = PETRA) Triglyceride Reference Range: Low Risk <150 Borderline 150-199 High Risk 200-499 Very High Risk >=500 Cholesterol Reference Range: Low Risk <200 Borderline 200-239 High Risk >240 HDL Cholesterol Reference Range: Low Risk >=60 High Risk <40 LDL Cholesterol Reference Range: Optimal <100 Near Optimal 100-129 Borderline 130-159 High 160-189 Very High >=190 Improvement Lead ID - DB [facility]Lip[facility] [id number] 05:18:14 Test Item Value Reference Range Interpretation Comments Triglycerides (test 78 mg/dL code = 2571-8) Cholesterol (test code 89 mg/dL = 3-3) HDL (test code = 26 mg/dL 2085-05) LDL Calculated (test 47 mg/dL code = 85708-3) PETRA (test code = PETRA) Triglyceride Reference Range: Low Risk <150 Borderline 150-199 High Risk 200-499 Very High Risk >=500 Cholesterol Reference Range: Low Risk <200 Borderline 200-239 High Risk >240 HDL Cholesterol Reference Range: Low Risk >=60 High Risk <40 LDL Cholesterol Reference Range: Optimal <100 Near Optimal 100-129 Borderline 130-159 High 160-189 Very High >=190 Improvement Lead ID - DB [facility]Lip[facility] [id number] 05:18:14 Test Item Value Reference Range Interpretation Comments Triglycerides (test 78 mg/dL code = 2571-8) Cholesterol (test code 89 mg/dL = 3-3) HDL (test code = 26 mg/dL 2085-05) LDL Calculated (test 47 mg/dL code = 26289-3) PETRA (test code = PETRA) Triglyceride Reference Range: Low Risk <150 Borderline 150-199 High Risk 200-499 Very High Risk >=500 Cholesterol Reference Range: Low Risk <200 Borderline 200-239 High Risk >240 HDL Cholesterol Reference Range: Low Risk >=60 High Risk <40 LDL Cholesterol Reference Range: Optimal <100 Near Optimal 100-129 Borderline 130-159 High 160-189 Very High >=190 Improvement Lead ID - DB [facility] [id number] 05:18:14 Test Item Value Reference Range Interpretation Comments PHOSPHORUS (BEAKER) (test code = 3.5 mg/dL 2.3-4.7 604) Improvement Lead ID - DBLIPID [id number] 05:18:14 Test Item Value Reference Range Interpretation [...] Borderline 130-159 High 160-189 Very High >=190 Improvement Lead ID - DBCOMPREHENSIVE METABOLIC [id number] 05:18:13 Test Item Value Reference Range Interpretation [...] S NOT APPLICABLE FOR DIALYSIS PATIEN TS. Improvement Lead ID - [id number] 05:18:13 Test Item Value Reference Range Interpretation Comments MAGNESIUM (BEAKER) (test code = 1.9 mg/dL 1.6-2.6 627) Improvement Lead ID - DBCBC W/PLT COUNT & AUTO [id number] 04:51:38 Test Item Value Reference Range Interpretation [...] code = 2801) Urinalysis with Microscopic If [id number] 01:04:25 Test Item Value Reference Range Interpretation Comments Color, UA (test code = Light Yellow 5778-6) Clarity, UA (test code = Clear 5767-9) Specific [place], UA 1.014 1.001-1.035 (test code = 5811-5) pH, UA (test code = 6.5 5.0-8.0 5803-2) Protein, UA (test code = Negative Negative 78464-4) Glucose, UA (test code = Negative Negative 365) Ketones, UA (test code = Negative Negative 2514-8) Bilirubin, UA (test code Negative Negative = 28303-6) Blood, UA (test code = Negative Negative 80108-1) Nitrite, UA (test code = Negative Negative 5802-4) Leukocytes, UA (test Negative Negative code = 5799-2) Urobilinogen, UA (test 0.2 mg/dL 0.2-1.0 code = 37246-0) Specimen Source (test code = 2795) PETRA (test code = PETRA) Improvement Lead ID - [auto] [facility] CenterUrinalysis with Microscopic If [id number] 01:04:25 Test Item Value Reference Range Interpretation Comments Color, UA (test code = Light Yellow 5778-6) Clarity, UA (test code = Clear 5767-9) Specific [place], UA 1.014 1.001-1.035 (test code = 5811-5) pH, UA (test code = 6.5 5.0-8.0 5803-2) Protein, UA (test code = Negative Negative 19263-0) Glucose, UA (test code = Negative Negative 365) Ketones, UA (test code = Negative Negative 2514-8) Bilirubin, UA (test code Negative Negative = 67895-5) Blood, UA (test code = Negative Negative 37381-7) Nitrite, UA (test code = Negative Negative 5802-4) Leukocytes, UA (test Negative Negative code = 5799-2) Urobilinogen, UA (test 0.2 mg/dL 0.2-1.0 code = 44282-8) Specimen Source (test code = 2795) PETRA (test code = PETRA) Improvement Lead ID - [auto] [facility]inal[facility] with [facility]sc[facility] If [id number] 01:04:25 Test Item Value Reference Range Interpretation Comments Color, UA (test code = Light Yellow 5778-6) Clarity, UA (test code = Clear 5767-9) Specific [place], UA 1.014 1.001-1.035 (test code = 5811-5) pH, UA (test code = 6.5 5.0-8.0 5803-2) Protein, UA (test code = Negative Negative 81630-5) Glucose, UA (test code = Negative Negative 365) Ketones, UA (test code = Negative Negative 2514-8) Bilirubin, UA (test code Negative Negative = 13364-6) Blood, UA (test code = Negative Negative 46142-7) Nitrite, UA (test code = Negative Negative 5802-4) Leukocytes, UA (test Negative Negative code = 5799-2) Urobilinogen, UA (test 0.2 mg/dL 0.2-1.0 code = 11761-4) Specimen Source (test code = 2795) EPTRA (test code = PETRA) Improvement Lead ID - [auto] [facility]OSCOPIC IF [id number] 01:04:25 Test Item Value Reference Range Interpretation [...] = 463) SOURCE(BEAKER) (test code = 2795) Improvement Lead ID - [auto]T4, [id number] 18:31:54 Test Item Value Reference Range Interpretation Comments Free T4 (test code = 3024-7) 0.77 ng/dL 0.70-1.48 PETRA (test code = PETRA) Improvement Lead ID - DB Lab Interpretation (test Normal code = 62452-2) [place] [address], [id number] 18:31:54 Test Item Value Reference Range Interpretation Comments Free T4 (test code = 3024-7) 0.77 ng/dL 0.70-1.48 PETRA (test code = PETRA) Improvement Lead ID - DB Lab Interpretation (test Normal code = 55426-3) [place] [address], [id number] 18:31:54 Test Item Value Reference Range Interpretation Comments Free T4 (test code = 3024-7) 0.77 ng/dL 0.70-1.48 PETRA (test code = PETRA) Improvement Lead ID - DB Lab Interpretation (test Normal code = 29091-4) [place] [address], [id number] 18:31:54 Test Item Value Reference Range Interpretation Comments FREE T4 (BEAKER) (test code = 655) 0.77 ng/dL 0.70-1.48 Improvement Lead ID - DBIRON, TIBC, % SAT. (WITHOUT FERRITIN)2021-10-02 18:16:14 Test Item Value Reference Range Interpretation Comments IRON (BEAKER) (test code = 547) 25.0 ug/dL 40.0-160.0 L TOTAL IRON BINDING CAPACITY 443 ug/dL 250-450 (BEAKER) (test code = 769) IRON % SATURATION (2) (BEAKER) 6 % 20-55 L (test code = 2590) Improvement Lead ID - BENI GOperator ID - DBRAD, ABDOMEN/KUB, 1 VIEW [id number] 18:02:00Reason for exam:->acute abdominal pain [facility] : 1960 Sex: MFINAL REPORT [...] bilateral renal calculi.Nonobstructive bowel gas pattern. Signed: Jaosn Silvaeport Verified Date/Time: 10/02/2021 18:02:37 Reading Location: [address] Reading Room [id number] 17:37:07 Test Item Value Reference Range Interpretation Comments Lipase (test code = 20 U/L 8-78 3040-3) PETRA (test code = PETRA) Improvement Lead ID - BENI G Lab Interpretation (test Normal code = 86428-3) [facility] Test Item Value Reference Range Interpretation Comments Lipase (test code = 20 U/L 878 3040-3) PETRA (test code = PETRA) Improvement Lead ID - BENI G Lab Interpretation (test Normal code = 97251-9) [facility] 17:37:07 Test Item Value Reference Range Interpretation Comments Lipase (test code = 20 U/L 878 3040-3) PETRA (test code = PETRA) Improvement Lead ID - BENI G Lab Interpretation (test Normal code = 74509-3) [facility] 17:37:07 Test Item Value Reference Range Interpretation Comments LIPASE (BEAKER) (test code = 749) 20 U/L 78 Improvement Lead ID - BENI GTSH/Free T4 If [id number] 17:05:20 Test Item Value Reference Range Interpretation Comments TSH (test code = 6.668 See_Comment H [Automated 60023-5) message] The system which generated this result transmit thanh reference range : 0.350 - 4.940 uIU/mL. The reference range was not used to interpret this result as normal/abnormal . PETRA (test code = PETRA) Improvement Lead ID - BENI G Lab Interpretation Abnormal (test code = 32033-5) [facility] T4 If [id number] 17:05:20 Test Item Value Reference Range Interpretation Comments TSH (test code = 6.668 See_Comment H [Automated 99402-3) message] The system which generated this result transmit thanh reference range : 0.350 - 4.940 uIU/mL. The reference range was not used to interpret this result as normal/abnormal . PETRA (test code = PETRA) Improvement Lead ID - BENI G Lab Interpretation Abnormal (test code = 29983-4) [facility] T[facility] If [id number] 17:05:20 Test Item Value Reference Range Interpretation Comments TSH (test code = 6.668 See_Comment H [Automated 42166-5) message] The system which generated this result transmit thanh reference range : 0.350 - 4.940 uIU/mL. The reference range was not used to interpret this result as normal/abnormal . PETRA (test code = PETRA) Improvement Lead ID - BENI Servin Lab Interpretation Abnormal (test code = 33820-0) [facility] T4 IF [id number] 17:05:20 Test Item Value Reference Range Interpretation Comments THYROID STIMULATING HORMONE 6.668 uIU/mL 0.350-4.940 H (BEAKER) (test code = 772) Improvement Lead ID - BENI TOVARitamin B12 and [id number] 16:52:36 Test Item Value Reference Range Interpretation Comments Vitamin B12 (test 515 pg/mL 213-816 code = 2132-9) Folate (test code = 8.50 ng/mL See_Comment [Automa thanh 2284-8) message] The system which generated this result transmit thanh reference range : >=7.00. The reference range was not used to interpret this result as normal/abnormal . PETRA (test code = PETRA) Improvement Lead ID - BENI Servin Lab Interpretation Normal (test code = 39353-4) [facility] [id number] 16:52:36 Test Item Value Reference Range Interpretation Comments Vitamin B12 (test 515 pg/mL 213-816 code = 2132-9) Folate (test code = 8.50 ng/mL See_Comment [Automa thanh 2284-8) message] The system which generated this result transmit thanh reference range : >=7.00. The reference range was not used to interpret this result as normal/abnormal . PETRA (test code = PETRA) Improvement Lead ID - BENI Servin Lab Interpretation Normal (test code = 10763-3) [facility] [id number] 16:52:36 Test Item Value Reference Range Interpretation Comments Vitamin B12 (test 515 pg/mL 213-816 code = 2132-9) Folate (test code = 8.50 ng/mL See_Comment [Automa thanh 2284-8) message] The system which generated this result transmit thanh reference range : >=7.00. The reference range was not used to interpret this result as normal/abnormal . PETRA (test code = PETRA) Improvement Lead ID - BENI G Lab Interpretation Normal (test code = 70684-1) [facility] AND [id number] 16:52:36 Test Item Value Reference Range Interpretation Comments VITAMIN B12 (BEAKER) 515 pg/mL 213-816 (test code = 774) FOLATE (BEAKER) 8.50 ng/mL See_Comment [Automated message] (test code = 362) The system which generated this result transmitted ref erence range: >=7.00. The reference range was not used to interpr et this result as normal/abnormal . Improvement Lead ID - BENI GRsjldkjw1013-17-18 16:52:35 Test Item Value Reference Range Interpretation Comments Ferritin (test code = 5.19 ng/mL 5.00-275.00 2276-4) PETRA (test code = PETRA) Improvement Lead ID - BENI G Lab Interpretation (test Normal code = 29845-6) [facility] 16:52:35 Test Item Value Reference Range Interpretation Comments Ferritin (test code = 5.19 ng/mL 5.00-275.00 2276-4) PETRA (test code = PETRA) Improvement Lead ID - BENI G Lab Interpretation (test Normal code = 56897-8) [facility] 16:52:35 Test Item Value Reference Range Interpretation Comments Ferritin (test code = 5.19 ng/mL 5.00-275.00 2276-4) PETRA (test code = PETRA) Improvement Lead ID - BENI G Lab Interpretation (test Normal code = 46937-1) [facility] 16:52:35 Test Item Value Reference Range Interpretation Comments FERRITIN (BEAKER) (test code = 5.19 ng/mL 5.00-275.00 361) Improvement Lead ID - BENI GB-TYPE NATRIURETIC FACTOR (BNP)2021-10-02 16:22:12 Test Item Value Reference Range Interpretation Comments B-TYPE NATRIURETIC PEPTIDE (BEAKER) 72 pg/mL 0-100 (test code = 700) Improvement Lead ID - BENI GHIGH SENSITIVITY TROPONIN [id number] 16:21:50 Test Item Value Reference Range Interpretation Comments HIGH SENSITIVITY 8 pg/ml See_Comment [Automated message] TROPONIN I (test code = The system which 0206732) generated this result transmitted ref erence range: <=35. Th e reference range was not used to interpr et this result as normal/abnormal . Improvement Lead ID - BENI GThe NETWORK TECHNICIAN STAT High Sensitivity Troponin-I results should be used in conjunction with other diagnostic information such as ECG, clinical observations and information, and patient symptoms to aid in the diagnosis of AL.COMPREHENSIVE METABOLIC [id number] 16:19:32 Test Item Value Reference Range Interpretation [...] S NOT APPLICABLE FOR DIALYSIS PATIEN TS. Improvement Lead ID - BENI [id number] 16:19:32 Test Item Value Reference Range Interpretation Comments MAGNESIUM (BEAKER) (test code = 2.0 mg/dL 1.6-2.6 627) Improvement Lead ID - BENI [id number] 16:19:32 Test Item Value Reference Range Interpretation Comments PHOSPHORUS (BEAKER) (test code = 3.4 mg/dL 2.3-4.7 604) Improvement Lead ID - BENI GLACTIC ACID, [id number] 16:12:09 Test Item Value Reference Range Interpretation Comments LACTATE BLOOD VENOUS (2) (BEAKER) 0.50 mmol/L 0.50-2.20 (test code = 2872) Improvement Lead ID - BENI GPROTHROMBIN TIME/[id number] 15:53:06 Test Item Value Reference Range Interpretation Comments PROTIME (BEAKER) 14.4 seconds 11.9-14.2 H (test code = 759) INR (BEAKER) (test 1.14 See_Comment [Automat ed message] code = 370) The system [employer] generated this result transmitted ref erence range: <=5.90. The reference range was not used to int erpret this result as normal/abnormal . RECOMMENDED COUMADIN/WARFARIN INR THERAPY RANGESSTANDARD DOSE: 2.0 - 3.0 Includes: PROPHYLAXIS for venous thrombosis, systemic embolization; TREATMENT for venous thrombosis and/or pulmonary embolus.HIGH RISK: Target INR is 2.5-3.5 for patients with mechanical heart valves.Reticulocyte [id number] 15:35:19 Test Item Value Reference Range Interpretation Comments % Retic (test code = 1.4 % 0.5-1.8 67040-9) PETRA (test code = PETRA) Improvement Lead ID - [id number] Lab Interpretation (test Normal code = 94409-0) [facility]Reticulocyte [id number] 15:35:19 Test Item Value Reference Range Interpretation Comments % Retic (test code = 1.4 % 0.5-1.8 08802-3) PETRA (test code = PETRA) Improvement Lead ID - 6000 Lab Interpretation (test Normal code = 29302-8) [facility] CampusReticulocyte [id number] 15:35:19 Test Item Value Reference Range Interpretation Comments % Retic (test code = 1.4 % 0.5-1.8 39389-1) PETRA (test code = PETRA) Improvement Lead ID - 6000 Lab Interpretation (test Normal code = 40669-5) [facility] CampusRETICULOCYTE [id number] 15:35:19 Test Item Value Reference Range Interpretation Comments RETICULOCYTE COUNT PCT (BEAKER) (test 1.4 % 0.5-1.8 code = 575) Improvement Lead ID - 6000CBC W/PLT COUNT & AUTO [id number] 15:35:19 Test Item Value Reference Range Interpretation [...] = 2801) RAD, CHEST, 1 VIEW, NON [id number] 15:26:00Reason for exam:->aicd shockShould this be performed at the bedside?->Yes [facility] : 1960 Sex: MFINAL REPORT RAD, CHEST, 1 VIEW, NON DEPT TECHNIQUE: Frontal view(s) of the chest. INDICATION: AICD shock COMPARISON: 05/08/2016 FINDINGS/IMPRESSION: Lines/Tubes: A dual-lead pacemaker/AICD Lungs/pleura: The left lateral costophrenic sulcus is excluded from [id number]-ku-dbpg. A linear opacity in the lateral right lower lobe is probably a scar. The lungs are otherwise clear and well inflated. No visible pleural effusion. No pneumothorax. Heart and Mediastinum: Unremarkable. Soft Tissues and Bones: Unremarkable. Signed: Padmini Gutierrez Verified Date/Time: 10/02/2021 15:26:50 Reading Location: [address] Consult Reading Room [facility] [id number] 12:34:00 Test Item Value Reference Range Interpretation [...] RECOLLECTION NEEDED ON 12/19/18 AT 1151 BY Z.[email or web address]: HEMOLYZEDNOTIFIED PATIENT CARE STAFF:[id number] 12:34:00 Test Item Value Reference Range Interpretation Comments MAGNESIUM (test code = MAG) 1.8 MG/DL 1.6-2.3 N RECOLLECTION NEEDED ON 12/19/18 AT 1151 BY Z.[email or web address].[email or web address]: HEMOLYZEDNOTIFIED PATIENT CARE STAFF:[facility] [place] [id number] 12:10:00 Test Item Value Reference Range Interpretation [...] myocar dial infarction. 2.0 - 3.0 3. Supervisor Hand Silvering al prosthesis hear t valves, recurre nt systemic emboli sm. 3.0 - 4.5 PTT [id number] 12:10:00 Test Item Value Reference Range Interpretation Comments PTT ACTIVATED (test code = APTT) 25.7 SECONDS 22.0-33.0 N CBC W/AUTO [id number] 11:41:00 Test Item Value Reference Range Interpretation [...]
[2022-09-27 20:15] LABS: Absolute Lymphocytes (CBC) 2.3 K/uL (0.7-4.9); Lymphocytes % 24.1 % (15.3-44.8); MCV 66.6 fL (80-100); MPV 8.3 fL (7.6-11.3); RBC Red Blood Cell Count 5.26 M/uL (4.33-5.43)
[2022-09-27] MEDS ORDERED: LORazepam 2 MG/ML VIAL ONE (20:19)
[2022-09-27] MEDS ORDERED: ETOMIDATE 20 MG/10 ML VIAL IV ONE (20:22)
[2022-09-27] MEDS ORDERED: SUCCINYLCHOLINE 20 MG/ML (10 ML) IV ONE (20:22)
[2022-09-27] MEDS ORDERED: propofoL 1,000 MG/100 ML VIAL IV ONE (20:25)
[2022-09-27 20:34] LABS: ALT/SGPT 17 U/L (16-61); AST/SGOT 5 U/L (15-37); Albumin 2.6 g/dL (3.4-5.0); Alkaline Phosphatase 79 U/L (45-117); BUN Blood Urea Nitrogen 22 mg/dL (7-18); Bicarbonate 24 mmol/L (21-32); Bilirubin Total 0.2 mg/dL (0.2-1.0); Glomerular Filtration Rate 55 ml/min (=/>90); Glucose Level 109 mg/dL (74-106); Magnesium 1.8 mg/dL (1.6-2.4); Potassium 3.4 mmol/L (3.5-5.1); Protein, Total 6.8 g/dL (6.4-8.2); Sodium Level 141 mmol/L (136-145); Troponin High Sensitivity 7.8 pg/mL (<58.9)
[2022-09-27 20:35] LABS: Bilirubin Direct < 0.1 mg/dL (0-0.2)
[2022-09-27] MEDS ORDERED: LEVETIRACETAM 500 MG/5 ML VIAL IV ONE (20:43)
[2022-09-27] MEDS ORDERED: NA CHLORIDE 0.9% 100 ML IV ONE ×2 (20:44→23:52)
--- NOTE | 2022-09-27 21:13 | RAD REPORT ---
EXAM DESCRIPTION: [place] Single View09/27/2022 8:59 pm CLINICAL HISTORY: Intubation/unresponsive COMPARISON: June 20262021 FINDINGS: Endotracheal tube has its tip approximately 6.5 centimeters above the owen. Nasogastric tube within the stomach. Lungs appear clear of acute infiltrate. Heart is normal size. Pacemaker leads in place IMPRESSION: Endotracheal tube has its tip approximately 6.5 centimeters above the owen. Lungs appear clear of acute infiltrate
[2022-09-27 21:27] LABS: Barbiturates NEGATIVE (NEGATIVE); Benzodiazepines POSITIVE (NEGATIVE); Cocaine NEGATIVE (NEGATIVE); METHAMPHETAM NEGATIVE (NEGATIVE); Methadone NEGATIVE (NEGATIVE); Opiates POSITIVE (NEGATIVE); Phencyclidine NEGATIVE (NEGATIVE); THC Cannibis NEGATIVE (NEGATIVE)
[2022-09-27 21:50] LABS: White Blood Cell Scan OK (OK)
[2022-09-27 21:51] LABS: Anisocytosis 1+; Blood Morphology Comment NOTED (NOT SEEN); Platelet Estimate ADEQ; Poikilocytosis 2+
--- NOTE | 2022-09-27 21:54 | RAD REPORT ---
EXAM DESCRIPTION: CT - Head Brain Wo Cont - 09/27/2022 9:48 pm CLINICAL HISTORY: Unresponsive/seizures COMPARISON: June 2022 TECHNIQUE: Computed axial tomography of the head was obtained. IV contrast was not requested. All CT scans are performed using dose optimization technique as appropriate and may include automated exposure control or mA/KV adjustment according to patient size. FINDINGS: An intracranial bleed is not seen . The ventricles are normal in caliber. No significant hypodense areas within the brain visualized No extra-axial fluid collection is noted. IMPRESSION: No acute intracranial abnormality is seen. If patient's symptoms persist MRI of the bra in would be recommended.
--- NOTE | 2022-09-27 22:04 | RAD REPORT ---
EXAM DESCRIPTION: CT - Abdomen Pelvis Wo Contrast - 09/27/2022 9:55 pm CLINICAL HISTORY: Abdominal pain and distention COMPARISON: 2017 TECHNIQUE: Computed axial tomography of the abdomen and pelvis was obtained. IV and oral contrast we re not requested. All CT scans are performed using dose optimization technique as appropriate and may include automated exposure control or mA/KV adjustment according to patient size. FINDINGS: The evaluation of solid organs, vessels and bowel is limited secondary to the lack of con trast administration. Stomach is markedly distended. The tip of a nasogastric tube abuts of the wall of the distal stomach. Mild to moderate patchy left lower lobe and mild patchy right lower lobe opacities may represent aspi ration pneumonitis A small, nonobstructing renal calculi. 5.8 centimeter left renal cyst. Additional smaller cysts. The liver, spleen, pancreas and adrenals grossly normal Carmona catheter within the bladder. Moderate amount of stool within the colon IMPRESSION: Stomach is markedly distended. The tip of a nasogastric tube abuts of the wall of the di stal stomach. Mild to moderate patchy left lower lobe and mild patchy right lower lobe opacities may represent aspi ration pneumonitis
[2022-09-27] MEDS ORDERED: NA CHLORIDE 0.9% 1,000 ML ONE ×2 (22:46→23:51)
[2022-09-27 22:55] LABS: Arterial Blood Carboxyhemoglob 2.2 % (0-1.5); Blood Gas Oxyhemoglobin 78.5 % (94-97); Blood O2 Saturation 81.4 % (92-98.5)
[2022-09-27] MEDS ORDERED: FENTANYL CITR 100 MCG/2 ML ONE (23:00)
[2022-09-27] MEDS ORDERED: MIDAZOLAM HCL 2 MG/2 ML INJ ONE (23:00)
[2022-09-27] MEDS ORDERED: NA CHLORIDE 0.9% 500 ML ONE (23:03)
[2022-09-27] MEDS ORDERED: NA CHLORIDE 0.9% 250 ML ONE ×2 (23:03→23:51)
[2022-09-27] MEDS ORDERED: PANTOPRAZOLE 40 MG INJ ONE (23:03)
[2022-09-27] MEDS ORDERED: OCTREOTIDE ACETATE 500 MCG/ML ONE (23:05)
[2022-09-27 23:36] LABS: Protime INR 1.16
[2022-09-27 23:46] LABS: SARS-CoV-2 Antigen Rapid Res Negative (Negative)
[2022-09-27] MEDS ORDERED: VANCOMYCIN 1 GM/VIAL ONE (23:51)
[2022-09-27] MEDS ORDERED: Meropenem 1000 MG/VIAL IV ONE (23:51)
[2022-09-27] MEDS ORDERED: NOREPINEPHRINE BITARTRATE/D5W 4 MG/250 ML BAG IV ONE (23:52)
--- NOTE | 2022-09-28 00:21 | ER ---
Nurse's Notes [facility] Name: Alexander Bowman Age: 62 yrs Sex: Male : 1960 Arrival Date: 09/27/2022 Time: 19:56 Bed 3 Private MD: Diagnosis: Status epilepticus, upper GI bleed, sepsis, septic shock, possible meningitis, altered mental status Presentation: 09/27 19:56 Chief complaint: EMS states: Pt was unresponsive upon EMS arrival. Pt was given 1mg of jb4 versed for active seizing. Pt has been unresponsive to painful stimuli since. Coronavirus screen: At this time, the client does not indicate any symptoms associated with coronavirus-19. Ebola Screen: No symptoms or risks identified at this time. Initial Sepsis Screen: Does the patient meet any 2 criteria? No. Patient's initial sepsis screen is negative. Does the patient have a suspected source of infection? No. Patient's initial sepsis screen is negative. Risk Assessment: Do you want to hurt yourself or someone else? Patient reports no desire to harm self or others. Onset of symptoms was September 27, 2022. Transition of care: patient was not received from another setting of care. 19:56 Method Of Arrival: EMS: [facility] jb4 19:56 Acuity: JACEY 2 jb4 Historical: - Allergies: 19:59 Aspirin; jb4 19:59 Codeine; jb4 19:59 Ibuprofen; jb4 19:59 Levofloxacin; jb4 19:59 mycins; jb4 19:59 PENICILLINS; jb4 19:59 Sulfa (Sulfonamide Antibiotics); jb4 19:59 Tylenol-Codeine #3; jb4 - Home Meds: 19:59 Advair Diskus 100-50 mcg/dose Inhl dsdv 1 puff 2 times per day [Active]; Aldactone 25 jb4 mg Oral tab 1 tab once daily [Active]; Dulera 100-5 mcg/actuation inhalation HFAA [Active]; fluticasone furoate 27.5 mcg/actuation nasal spsn [Active]; Imdur 60 mg Oral Tb24 1 tab once daily [Active]; metronidazole 500 mg Oral tab 1 tab 3 times per day [Active]; pravastatin 20 mg Oral tab 1 tab once daily [Active]; Saphris 5 mg sublingual subl 1 tab 2 times per day [Active]; omeprazole 40 mg Oral cpDR 1 cap once daily [Active]; Robaxin 500 mg Oral tab TID [Active]; Nitrostat 0.4 mg SL subl 1 tab every 5 minutes [Active]; Spiriva with HandiHaler 18 mcg inhalation CpDv [Active]; Viibryd 40 mg Oral tab [Active]; - PMHx: 19:59 Anxiety; Hypertension; Myocardial infarction; COPD; Pneumonia; Pneumothorax; jb4 - PSHx: 19:59 Stented artery; 18" bowel removal; pacemaker placement; jb4 - Immunization history:: Adult Immunizations unknown. - Social history:: Smoking status: unknown. Screenin:[facility] ED Fall Risk Assessment (Adult). Abuse screen: Denies threats or abuse. Denies tw5 injuries from another. Nutritional screening: No deficits noted. Tuberculosis screening: No symptoms or risk factors identified. Assessment: 20:00 General: Behavior is unresponsive. Pain: Unable to use pain scale. Patient is mb9 unresponsive. Neuro: Level of Consciousness is unresponsive, Pupils are sluggish, pinpoint. Cardiovascular: Heart tones S1 S2 present Capillary refill is > 3 seconds Rhythm is regular. 20:00 Respiratory: Airway is patent Respiratory effort is even, unlabored, Respiratory mb9 pattern is regular, Breath sounds are clear bilaterally. GI: Abdomen is flat, non-distended, Bowel sounds present X 4 quads. : Urine is clear. EENT: No signs and/or symptoms were reported regarding the EENT system. Derm: Skin is intact, Skin is dry, Skin is pale, Skin temperature is cool. Musculoskeletal:. 20:10 Reassessment: pt seizing for appropriately [address] Ray notified and at bedside.mb9 20:21 Reassessment: RT at bedside. mb9 21:00 Neuro: Level of Consciousness is unresponsive. Cardiovascular: Rhythm is regular. mb9 Respiratory: Airway is patent Respiratory effort is even, unlabored, Respiratory pattern is regular. Derm: Skin is healthy with good turgor, Skin is dry, Skin is pale, Skin temperature is cool. 21:45 General: states " For the past two days he has been complaining of being dizzy and tw5 having a headache. He was sitting on the couch and his head was leaning back and he wouldn't answer me. Finally he sat up, but he didn't look well. He couldn't remember who I was. He had mentioned several times today that he felt like he needed to be taken to the hospital, that is when I called 911.". 21:45 Reassessment: Pt taken to CT via stretcher accompanied by nurse and RT. mb9 22:00 Neuro: Level of Consciousness is unresponsive, Pupils are sluggish, pinpoint. mb9 Cardiovascular: Rhythm is regular. Respiratory: Airway is patent Respiratory effort is even, unlabored, Respiratory pattern is regular, symmetrical. GI:. Derm: Skin is intact, Skin is dry, Skin is pale, Skin temperature is cool. 22:50 Musculoskeletal: bilateral upper extremities intact. mb9 23:50 Reassessment: pt began to spike fever. Cory MACARIO, notified. mb9 23:55 Cardiovascular: Rhythm is sinus tachycardia. Respiratory: Airway is patent Respiratory mb9 effort is even, unlabored, Respiratory pattern is regular, symmetrical. Derm: Skin is intact, Skin is dry, Skin is pale, Skin temperature is warm. 09/28 00:10 Reassessment: bilateral brachial pulses 2+ and equal. No skin breakdown noted. mb9 Capillary refill intact. 01:00 Reassessment: Pt remains intubated, NG tube remains in place. IV's flowing without jb4 issue, remains on propofol. 01:35 Reassessment: Pt remains intubated, EMS at the bedside transferring pt their stretcher, jb4 Protonix stopped per provider due to EMS not being able to take all the drips. NG tube remains in place, IV's flowing without issue and remain patent, IV sites are clean dry and intact. Vital Signs: 09/27 19:56 BP 108 / 78; Pulse 91; Resp 19; Temp 98.7(TE); Pulse Ox 100% on Simple Mask; Weight jb4 72.57 kg (R); Height 5 ft. 8 in. (172.72 cm) (R); 20:22 BP 116 / 83; Pulse 88; Resp 16; Pulse Ox 87% ; mb9 20:26 BP 116 / 83; Pulse 85; Resp 26; Pulse Ox 100% on Non-rebreather mask; mb9 20:30 BP 171 / 126; Pulse 94; Resp 7; Pulse Ox 100% on 15% Non-rebreather mask; mb9 20:36 BP 182 / 93; Pulse 91; Resp 19; Pulse Ox 100% ; mb9 20:49 BP 182 / 96; Pulse 91; Resp 33; Pulse Ox 92% on 60% FiO2 ETT vent; mb9 20:59 BP 165 / 99; Pulse 98; Resp 24; Pulse Ox 89% ; mb9 21:00 BP 111 / 75; Pulse 93; Resp 29; Pulse Ox 90% on 60% FiO2 ETT vent; mb9 21:25 BP 85 / 65; Pulse 93; Resp 26; Pulse Ox 86% on 60% FiO2 ETT vent; mb9 21:45 BP 108 / 84; Pulse 89; Resp 26; Pulse Ox 88% on 60% FiO2 ETT vent; mb9 22:15 BP 92 / 81; Pulse 100; Resp 42; Pulse Ox 89% on 60% FiO2 ETT vent; mb9 22:36 BP 77 / 44; Pulse 87; Resp 19; mb9 22:45 BP 83 / 56; Pulse 107; Resp 34; Pulse Ox 89% on 60% FiO2 ETT vent; mb9 23:14 BP 76 / 54; Pulse 94; Resp 38; Pulse Ox 92% on 60% FiO2 ETT vent; mb9 23:58 BP 95 / 75; Pulse 107; Resp 37; Temp 102.1; Pulse Ox 90% on 60% FiO2 ETT vent; mb9 09/28 00:08 BP 101 / 58; Pulse 108; Resp 36; Pulse Ox 90% on 60% FiO2 ETT vent; mb9 00:45 BP 92 / 67; Pulse 102; Resp 35; Temp 102.4(C); Pulse Ox 100% ; 4 01:00 BP 87 / 43; Pulse 103; 4 01:10 BP 91 / 60; Pulse 96; Resp 35; Pulse Ox 93% on 100% FiO2 ETT vent; [facility] 01:58 BP 63 / 50; 4 02:00 BP 84 / 60; Pulse Ox 100% on 100% FiO2 ETT vent; [facility] 09/27 19:56 Body Mass Index 24.33 (72.57 kg, 172.72 cm) [facility] 02:00 EMS VS prior to leaving [facility] ED Course: 09/27 19:56 Patient arrived in ED. [facility] 19:56 Placed in gown. Bed in low position. Call light in reach. Side rails up X 1. Seizure mb9 precautions initiated. Client placed on continuous cardiac and pulse oximetry monitoring. NIBP monitoring applied. alarm security or surveillance monitor on. 19:58 Derek Ray MD is Attending Physician. sp3 19:59 Triage completed. jb4 19:59 Arm band placed on right wrist. jb4 20:00 EKG done, by ED staff, reviewed by Derek Ray MD. mb9 20:00 Inserted saline lock: 20 gauge in right antecubital area, using aseptic technique. mb9 Blood collected. 20:01 Lg Acuna, RN is Primary Nurse. jb4 20:05 Carmona cath inserted, using sterile technique, 16 Fr., by mn, balloon inflated, to mb9 gravity drainage, returned clear yellow urine. Patient tolerated well. 20:31 Assisted provider with intubation using 7.5 mm ETT via oral route. ET tube secured at mb9 22cm at the lips. Set up intubation tray. Intubated by Derek Ray MD Patient tolerated well. 20:35 NGT: to intermittent suction. Returned gastric contents. Patient tolerated well. OGT: mb9 inserted 16 fr. 21:01 XRAY Chest (1 view) In Process Unspecified. EDMS 21:50 CT Head Brain wo Cont In Process Unspecified. EDMS 21:53 Door closed. tw5 21:56 CT Abd/Pelvis - Without Contrast In Process Unspecified. EDMS 22:07 RT at bedside. ET tube changed to 25cm at the lips. RT suctioning pt. mb9 23:08 Assisted provider with central line placement. Set up central line tray. Triple lumen mb9 line placed Line placed by Chema MABRY Dressed with Tegaderm, Blood was collected. Patient tolerated well. Dr. Ray at bedside assisting. 23:27 SARS-COV-2 Antigen Rapid Sent. mb9 23:[address] [facility] and other [facility], denied due to capacity, spoke with wm Fernández. 23:43 Blood Culture Adult (2) Sent. mb9 23:55 Initiated transfer to [facility], spoke with Arely. 23:56 CXR XRAY In Process Unspecified. EDMS 09/28 00:29 Blood Culture Adult (2) Sent. rv1 00:50 Pt accepted for transfer to [facility] by Zoraida Lopez \\T\\ [id number], per Arely Mcconnell. wm 01:35 Patient transferred, IV remains in place. jb4 Administered Medications: 09/27 20:20 Drug: Ativan (LORazepam) 2 mg Route: IVP; Site: right antecubital; jb4 20:26 Drug: Succinylcholine 120 mg Route: IVP; Site: right antecubital; mb9 20:43 Follow up: Response: No adverse reaction mb9 20:26 Drug: Etomidate 20 mg Route: IVP; Site: right antecubital; mb9 20:43 Follow up: Response: No adverse reaction mb9 20:34 Drug: Propofol 5 mcg/kg/min Route: IV; Rate: calculated rate; Site: right antecubital; mb9 20:42 Follow up: Rate change 40 bolus; bolus of 40 mg/min per Dr. Ray VO mb9 20:43 Follow up: Rate change 5 mcg/kg/min mb9 20:49 Follow up: BP 182 / 96; Pulse 91 bpm; Resp 33 bpm; Pulse Ox 92% FiO2 60% Vent; Rate mb9 change 10 mcg/kg/min 20:59 Follow up: BP 165 / 99; Pulse 98 bpm; Resp 24 bpm; Pulse Ox 89% ; Rate change 30 bolus mb9 21:00 Follow up: Rate change 15 mcg/kg/min mb9 22:36 Follow up: BP 77 / 44; Pulse 87 bpm; Resp 19 bpm; Rate change 5 mcg/kg/min mb9 05 00:08 Follow up: BP 101 / 58; Pulse 108 bpm; Resp 36 bpm; Pulse Ox 90% FiO2 60% Vent; Rate mb9 change 10 mcg/kg/min 00:53 Follow up: Rate change 10 mcg/kg/min jb4 01:00 Follow up: Rate change 15 mcg/kg/min jb4 09/27 20:50 Drug: Keppra (levETIRAcetam) 1000 mg Route: IV; Rate: calculated rate; Site: right jb4 forearm; 23:00 Drug: fentaNYL (PF) 100 mcg Route: IVP; Site: right forearm; mb9 23:59 Follow up: Response: No adverse reaction mb9 23:02 Drug: Midazolam 5 mg Route: IVP; Site: right forearm; mb9 23:15 Follow up: Response: No adverse reaction; Marked relief of symptoms jb4 23:05 Drug: NS 0.9% 1000 ml Route: IV; Rate: 1 bolus; Site: right forearm; [facility] 09/28 00:00 Follow up: IV Status: Completed infusion; IV Intake: 1000ml [facility] 09/27 23:38 Drug: ProTONIX (pantoprazole) 40 mg Route: IVP; Site: right jugular; 9 09/28 00:00 Follow up: Response: No adverse reaction [facility] 09/27 23:38 Drug: ProTONIX (pantoprazole) 8 mg/hr Route: IV; Rate: 25 ml/hr; Site: right jugular; [facility] 09/28 01:35 Follow up: Response: No adverse reaction; IV Status: Order to discontinue infusion; see jb4 nurses notes 09/27 23:39 Drug: Octreotide Infusion (50 mcg/hr) - (Octreotide 500 mcg, NS 0.9% 500 ml) Route: IV; [facility] Rate: 50 ml/hr; Site: right jugular; 09/28 01:30 Follow up: Response: No adverse reaction; IV Status: Infusion continued upon transfer [facility] 00:08 Drug: Levophed (norepinephrine) 0.1 mcg/kg/min Route: IV; Rate: calculated rate; Site: [facility] right forearm; 01:00 Follow up: BP 87 / 43; Pulse 103 bpm; Rate change 0.18 mcg/kg/min 4 01:35 Follow up: Response: No adverse reaction; Rate change 0.23 mcg/kg/min; IV Status: jb4 Infusion continued upon transfer 01:58 Follow up: BP 63 / 50; Rate change 0.28 mcg/kg/min; Vs taken with EMS. [facility] 00:36 Drug: NS 0.9% 1000 ml Route: IV; Rate: 1000 ml; Site: right forearm; 4 01:30 Follow up: IV Status: Completed infusion; IV Intake: 1000ml [facility] 00:37 Drug: Meropenem 1 grams Route: IV; Rate: calculated rate; Site: right forearm; jb4 01:00 Follow up: Response: No adverse reaction; IV Status: Completed infusion; IV Intake: jb4 100ml 01:14 Drug: vancoMYCIN 1 grams Route: IVPB; Infused Over: 2 hrs; Site: right forearm; 4 01:59 Follow up: Response: No adverse reaction; IV Status: Infusion continued upon transfer jb4 01:35 Drug: Tylenol Suppository 650 mg Route: NC; jb4 01:50 Follow up: Response: No adverse reaction jb4 Medication: 01:35 VIS not applicable for this client. jb4 Intake: 00:00 IV: 1000ml; Total: 1000ml. jb4 01:00 IV: 100ml; Total: 1100ml. jb4 01:30 IV: 1000ml; Total: 2100ml. jb4 09/27 20:30 suctioned prior to intubation mb9 Output: 20:30 Gastric: 1000ml (Emesis); Total: 1000ml. mb9 20:36 Gastric: 1000ml (OGT); Total: 2000ml. mb9 09/28 00:13 Urine: 1000ml (Carmona); Total: 3000ml. mb9 09/27 20:30 suctioned prior to intubation mb9 Ventilator: 20:31 Fi02: 60%; Rate: 16min; T.V.: 450ml; Peep: 5cm; ET tube: 7.5 fr (Oral); mb9 Outcome: 09/28 00:20 ER care complete, transfer ordered by . sp3 01:35 Transferred by ground EMS [facility]. to [facility], Transfer form jb4 completed. X-rays sent w/ patient. 01:35 Condition: stable 01:53 Patient left the ED. jb4 Signatures: Dispatcher [employer] EDMS Lg Acuna RN RN jb4 Monse Pittman Setul, MD MD sp3 Maria Hightower twKath Singh, Lisa Cross RN RN mb9 Lisa Simpson rv1 Corrections: (The following items were deleted from the chart) 09/27 20:39 20:35 NGT: inserted 16 Fr. tom santos 21:56 21:45 General: states " For the past two days he has been complaining of being tw5 dizzy and having a headache. He was sitting on the couch and his head was leaning back and he wouldn't answer me. Finally he sat up, but he didn't look well. He couldn't remember who I was. He had mentioned several times today that he felt like he needed to be taken to the hospital.". tw5 22:09 22:04 Reassessment: mb9 mb9 23:11 23:08 Assisted provider with central line placement. Set up central line tray. Triple mb9 lumen line placed Line placed by Chema MABRY Dressed with Tegaderm, Blood was collected. Patient tolerated well. mb9 23:58 23:14 BP 76 / 54; Pulse 94bpm; Resp 38bpm; Pulse Ox 92% FiO2 60% vent; Temp 101.5F; mb9 mb9
--- NOTE | 2022-09-28 00:21 | EDPHYS ---
Physician Documentation [facility] Name: Alexander Bowman Age: 62 yrs Sex: Male : 1960 Arrival Date: 09/27/2022 Time: 19:56 Bed 3 Private MD: ED Physician Derek Ray HPI: 09/27 20:12 This 62 yrs old Male presents to ER via EMS with complaints of Seizure. sp3 20:12 62-year-old male with a history of hypertension, COPD, NE with stent and pacer sp3 placement, prior bowel resection presents with chief complaint seizure activity after which his spouse activated EMS who transported him to the hospital. They were dispatched to find a patient actively seizing to which they administered IV midazolam and transported him to the ED. He has been postictal for them on their entire ride here. Currently he is also postictal and cannot answer any questions and breathing on his own. Review of systems and remainder of H\\T\\P severely limited secondary to these aspects. There are no visible signs of trauma, acute bleeding, or any other history reported from EMS.. Historical: - Allergies: 19:59 Aspirin; jb4 19:59 Codeine; jb4 19:59 Ibuprofen; jb4 19:59 Levofloxacin; jb4 19:59 mycins; jb4 19:59 PENICILLINS; jb4 19:59 Sulfa (Sulfonamide Antibiotics); jb4 19:59 Tylenol-Codeine #3; jb4 - Home Meds: 19:59 Advair Diskus 100-50 mcg/dose Inhl dsdv 1 puff 2 times per day [Active]; Aldactone 25 jb4 mg Oral tab 1 tab once daily [Active]; Dulera 100-5 mcg/actuation inhalation HFAA [Active]; fluticasone furoate 27.5 mcg/actuation nasal spsn [Active]; Imdur 60 mg Oral Tb24 1 tab once daily [Active]; metronidazole 500 mg Oral tab 1 tab 3 times per day [Active]; pravastatin 20 mg Oral tab 1 tab once daily [Active]; Saphris 5 mg sublingual subl 1 tab 2 times per day [Active]; omeprazole 40 mg Oral cpDR 1 cap once daily [Active]; Robaxin 500 mg Oral tab TID [Active]; Nitrostat 0.4 mg SL subl 1 tab every 5 minutes [Active]; Spiriva with HandiHaler 18 mcg inhalation CpDv [Active]; Viibryd 40 mg Oral tab [Active]; - PMHx: 19:59 Anxiety; Hypertension; Myocardial infarction; COPD; Pneumonia; Pneumothorax; jb4 - PSHx: 19:59 Stented artery; 18" bowel removal; pacemaker placement; jb4 - Immunization history:: Adult Immunizations unknown. - Social history:: Smoking status: unknown. ROS: 20:13 Unable to obtain ROS due to obtunded state. sp3 Exam: 20:14 Head/Face: Normocephalic, atraumatic. Eyes: Pupils equal round and reactive to light, sp3 extra-ocular motions intact. Lids and lashes normal. Conjunctiva and sclera are non-icteric and not injected. Cornea within normal limits. Periorbital areas with no swelling, redness, or edema. Neck: Trachea midline, no thyromegaly or masses palpated, and no cervical lymphadenopathy. Supple, full range of motion without nuchal rigidity, or vertebral point tenderness. No Meningismus. Chest/axilla: Normal chest wall appearance and motion. Nontender with no deformity. No lesions are appreciated. Cardiovascular: Regular rate and rhythm with a normal S1 and S2. No gallops, murmurs, or rubs. Normal PMI, no JVD. No pulse deficits. 20:44 Respiratory: Lungs have equal breath sounds bilaterally, clear to auscultation and sp3 percussion. No rales, rhonchi or wheezes noted. No increased work of breathing, no retractions or nasal flaring. 20:44 Neuro: seizure activity, grand mal type is displayed, Patient has had multiple seizures at home, for EMS and now in the ED as well. Patient is now not maintaining his airway and has an absent gag reflex. We will intubate him for airway protection. See procedure note and said critical care notes in the MDM section.. 21:43 ECG was reviewed by the Attending Physician. EKG demonstrates atrial paced rhythm at 90 sp3 bpm with adequate capture. Vital Signs: 19:56 BP 108 / 78; Pulse 91; Resp 19; Temp 98.7(TE); Pulse Ox 100% on Simple Mask; Weight jb4 72.57 kg (R); Height 5 ft. 8 in. (172.72 cm) (R); 20:22 BP 116 / 83; Pulse 88; Resp 16; Pulse Ox 87% ; mb9 20:26 BP 116 / 83; Pulse 85; Resp 26; Pulse Ox 100% on Non-rebreather mask; mb9 20:30 BP 171 / 126; Pulse 94; Resp 7; Pulse Ox 100% on 15% Non-rebreather mask; mb9 20:36 BP 182 / 93; Pulse 91; Resp 19; Pulse Ox 100% ; mb9 20:49 BP 182 / 96; Pulse 91; Resp 33; Pulse Ox 92% on 60% FiO2 ETT vent; mb9 20:59 BP 165 / 99; Pulse 98; Resp 24; Pulse Ox 89% ; mb9 21:00 BP 111 / 75; Pulse 93; Resp 29; Pulse Ox 90% on 60% FiO2 ETT vent; mb9 21:25 BP 85 / 65; Pulse 93; Resp 26; Pulse Ox 86% on 60% FiO2 ETT vent; mb9 21:45 BP 108 / 84; Pulse 89; Resp 26; Pulse Ox 88% on 60% FiO2 ETT vent; mb9 22:15 BP 92 / 81; Pulse 100; Resp 42; Pulse Ox 89% on 60% FiO2 ETT vent; mb9 22:36 BP 77 / 44; Pulse 87; Resp 19; mb9 22:45 BP 83 / 56; Pulse 107; Resp 34; Pulse Ox 89% on 60% FiO2 ETT vent; mb9 23:14 BP 76 / 54; Pulse 94; Resp 38; Pulse Ox 92% on 60% FiO2 ETT vent; mb9 23:58 BP 95 / 75; Pulse 107; Resp 37; Temp 102.1; Pulse Ox 90% on 60% FiO2 ETT vent; mb9 09/28 00:08 BP 101 / 58; Pulse 108; Resp 36; Pulse Ox 90% on 60% FiO2 ETT vent; mb9 00:45 BP 92 / 67; Pulse 102; Resp 35; Temp 102.4(C); Pulse Ox 100% ; jb4 01:00 BP 87 / 43; Pulse 103; jb4 01:10 BP 91 / 60; Pulse 96; Resp 35; Pulse Ox 93% on 100% FiO2 ETT vent; jb4 01:58 BP 63 / 50; jb4 02:00 BP 84 / 60; Pulse Ox 100% on 100% FiO2 ETT vent; [facility] 09/27 19:56 Body Mass Index 24.33 (72.57 kg, 172.72 cm) [facility] 02:00 EMS VS prior to leaving [facility] Ventilator: 09/27 20:31 Fi02: 60%; Rate: 16min; T.V.: 450ml; Peep: 5cm; ET tube: 7.5 fr (Oral); mb9 Procedures: 20:46 Intubation: Ventilated with 100% NRB prior to procedure. Intubated orally using # 3 sp3 Tal blade with 7.5 mm ETT. Successful on second attempt. Ventilated with Ambu bag. Cricoid pressure applied during procedure. Tube secured Placement verified by Patient had over 2 L of gastric contents that self evacuated via emesis during her first intubation attempt. Was suctioned and once relatively clear, second attempt was successful with direct visualization of ET tube passing through the cords. Orogastric tube was then placed to further evacuate stomach contents nearly 3 L were evacuated. Gastroccult sent on stomach contents. Maintained oxygenation at 98% or better secondary to patient adequately being preoxygenated prior to etomidate and succinylcholine administration.. MDM: 20:01 Patient medically screened. sp3 20:45 Data reviewed: vital signs, EMS record. sp3 20:48 ED course: Successfully intubated using etomidate and succinylcholine and 7.5 ET tube. sp3 Placement verified on chest x-ray along with orogastric tube. Sedation will occur via propofol to also control seizure activity. Keppra and Ativan have also been given. Unknown etiology at this time for patient status epilepticus which now should be controlled given interventions. Gastric contents were also dark brown in nature and Gastroccult has been sent to the lab for further analysis. Remainder of laboratory values are pending along with ABG, head CT, and discussion on best place for final disposition. Total critical care time 30 minutes spent by me direct patient care, chart review and medical decision making.. 22:22 ED course: Laboratory values and CT scans have been reviewed. Patient has the following sp3 diagnoses which will require transfer for definitive specialist care. #1, epilepticus now controlled with propofol and Keppra require neurology consultation. #2 GI bleed with occult positive gastric contents and markedly distended stomach hemoglobin is 10. Coagulation is normal. Patient is now adequately sedated. CT demonstrates chemical pneumonitis likely from aspiration during intubation. No antibiotics will be given currently and will defer to inpatient team.. 23:43 ED course: Right internal jugular central line placed in sterile fashion sp3 ultrasound-guided without incident. Post central line x-ray is pending. Patient also started on octreotide and Protonix drips and transfer process has been initiated.. 23:47 ED course: She now has fever of 101.5. Blood pressure continues to drop and patient is sp3 now seizing again. 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 Blood cultures were also be drawn.. 09/28 00:16 ED course: Discussed with Dr. Hodges at [facility] who has graciously excepted this sp3 patient to their ICU.. 09/27 20:00 Order name: Basic Metabolic Panel; Complete Time: 21:12 3 09/27 20:00 Order name: LFT's; Complete Time: 21:12 3 09/27 20:00 Order name: Magnesium; Complete Time: 21:12 3 09/27 20:00 Order name: Troponin HS; Complete Time: 21:12 3 09/27 20:00 Order name: ABG; Complete Time: 23:32 3 09/27 20:01 Order name: Urine Drug Screen; Complete Time: 21:56 3 09/27 20:01 Order name: Lactate w/ 2H reflex if indic.; Complete Time: 21:12 3 09/27 20:12 Order name: CBC with Automated Diff; Complete Time: 21:56 EDNH 09/27 20:12 Order name: Protime (+INR) EDNH 09/27 20:33 Order name: Glucose, Ancillary Testing; Complete Time: 21:12 EDMS 09/27 21:05 Order name: Gastric Occult Blood; Complete Time: 21:12 EDNH 09/27 21:08 Order name: SARS-COV-2 Antigen Rapid wm 09/27 20:00 Order name: XRAY Chest (1 view); Complete Time: 21:56 3 09/27 20:00 Order name: CT Head Brain wo Cont; Complete Time: 21:56 3 09/27 20:55 Order name: CT Abd/Pelvis - Without Contrast; Complete Time: 22:19 3 09/27 21:51 Order name: CBC Smear Scan; Complete Time: 21:56 EDMS 09/27 23:08 Order name: Blood Culture Adult (2) 4 09/27 23:32 Order name: CXR XRAY 3 09/27 23:55 Order name: Lactate Sepsis 2 HR Follow-up; Complete Time: 00:02 EDMS 09/27 20:00 Order name: EKG; Complete Time: 20:01 3 09/27 20:00 Order name: Cardiac monitoring; Complete Time: 20:12 3 09/27 20:00 Order name: EKG - Nurse/Tech; Complete Time: 20:11 3 09/27 20:00 Order name: IV Saline Lock; Complete Time: 20:12 3 09/27 20:00 Order name: Labs collected and sent; Complete Time: 20:12 3 09/27 20:00 Order name: O2 Per Protocol; Complete Time: 20:12 3 09/27 20:00 Order name: O2 Sat Monitoring; Complete Time: 20:12 3 09/27 20:00 Order name: Seizure Precautions; Complete Time: 20:11 sp3 09/27 20:00 Order name: Accucheck; Complete Time: 20:11 3 09/27 20:01 Order name: [place]; Complete Time: 20:11 3 09/27 20:39 Order name: Gastrocult; Complete Time: 21:00 3 09/28 00:10 Order name: Restraint:Non-Violent; Complete Time: 00:10 mb9 Administered Medications: 09/27 20:20 Drug: Ativan (LORazepam) 2 mg Route: IVP; Site: right antecubital; jb4 20:26 Drug: Succinylcholine 120 mg Route: IVP; Site: right antecubital; mb9 20:43 Follow up: Response: No adverse reaction mb9 20:26 Drug: Etomidate 20 mg Route: IVP; Site: right antecubital; mb9 20:43 Follow up: Response: No adverse reaction mb9 20:34 Drug: Propofol 5 mcg/kg/min Route: IV; Rate: calculated rate; Site: right antecubital; mb9 20:42 Follow up: Rate change 40 bolus; bolus of 40 mg/min per Dr. Ray VO mb9 20:43 Follow up: Rate change 5 mcg/kg/min mb9 20:49 Follow up: BP 182 / 96; Pulse 91 bpm; Resp 33 bpm; Pulse Ox 92% FiO2 60% Vent; Rate mb9 change 10 mcg/kg/min 20:59 Follow up: BP 165 / 99; Pulse 98 bpm; Resp 24 bpm; Pulse Ox 89% ; Rate change 30 bolus mb9 21:00 Follow up: Rate change 15 mcg/kg/min mb9 22:36 Follow up: BP 77 / 44; Pulse 87 bpm; Resp 19 bpm; Rate change 5 mcg/kg/min mb9 09/28 00:08 Follow up: BP 101 / 58; Pulse 108 bpm; Resp 36 bpm; Pulse Ox 90% FiO2 60% Vent; Rate mb9 change 10 mcg/kg/min 00:53 Follow up: Rate change 10 mcg/kg/min 4 01:00 Follow up: Rate change 15 mcg/kg/min [facility] 09/27 20:50 Drug: Keppra (levETIRAcetam) 1000 mg Route: IV; Rate: calculated rate; Site: right [facility] forearm; 23:00 Drug: fentaNYL (PF) 100 mcg Route: IVP; Site: right forearm; mb9 23:59 Follow up: Response: No adverse reaction 9 23:02 Drug: Midazolam 5 mg Route: IVP; Site: right forearm; mb9 23:15 Follow up: Response: No adverse reaction; Marked relief of symptoms [facility] 23:05 Drug: NS 0.9% 1000 ml Route: IV; Rate: 1 bolus; Site: right forearm; mb9 09/28 00:00 Follow up: IV Status: Completed infusion; IV Intake: 1000ml [facility] 09/27 23:38 Drug: ProTONIX (pantoprazole) 40 mg Route: IVP; Site: right jugular; mb9 09/28 00:00 Follow up: Response: No adverse reaction [facility] 09/27 23:38 Drug: ProTONIX (pantoprazole) 8 mg/hr Route: IV; Rate: 25 ml/hr; Site: right jugular; mb9 09/28 01:35 Follow up: Response: No adverse reaction; IV Status: Order to discontinue infusion; see 4 nurses notes 09/27 23:39 Drug: Octreotide Infusion (50 mcg/hr) - (Octreotide 500 mcg, NS 0.9% 500 ml) Route: IV; mb9 Rate: 50 ml/hr; Site: right jugular; 09/28 01:30 Follow up: Response: No adverse reaction; IV Status: Infusion continued upon transfer jb4 00:08 Drug: Levophed (norepinephrine) 0.1 mcg/kg/min Route: IV; Rate: calculated rate; Site: mb9 right forearm; 01:00 Follow up: BP 87 / 43; Pulse 103 bpm; Rate change 0.18 mcg/kg/min jb4 01:35 Follow up: Response: No adverse reaction; Rate change 0.23 mcg/kg/min; IV Status: jb4 Infusion continued upon transfer 01:58 Follow up: BP 63 / 50; Rate change 0.28 mcg/kg/min; Vs taken with EMS. jb4 00:36 Drug: NS 0.9% 1000 ml Route: IV; Rate: 1000 ml; Site: right forearm; jb4 01:30 Follow up: IV Status: Completed infusion; IV Intake: 1000ml jb4 00:37 Drug: Meropenem 1 grams Route: IV; Rate: calculated rate; Site: right forearm; jb4 01:00 Follow up: Response: No adverse reaction; IV Status: Completed infusion; IV Intake: jb4 100ml 01:14 Drug: vancoMYCIN 1 grams Route: IVPB; Infused Over: 2 hrs; Site: right forearm; jb4 01:59 Follow up: Response: No adverse reaction; IV Status: Infusion continued upon transfer jb4 01:35 Drug: Tylenol Suppository 650 mg Route: AK; jb4 01:50 Follow up: Response: No adverse reaction jb4 Disposition Summary: 09/28/22 00:20 Transfer Ordered Transfer Location: [facility] sp3 Reason: Higher level of care sp3 Condition: Critical sp3 Problem: new sp3 Symptoms: have worsened sp3 Accepting Physician: Dr. Hodges(09/28/22 01:53) jb4 Diagnosis - Status epilepticus, upper GI bleed, sepsis, septic shock, possible meningitis, sp3 altered mental status Forms: - Medication Reconciliation Form sp3 - SBAR form sp3 Signatures: Dispatcher [employer] EDMS Chema De La Torre, VANDANA-C MANAGER INFUSION-Cla1 Lg Acuna RN RN jb4 Derek Ray MD MD sp3 Maria Hightower tw5 Lisa Singh Beth, RN RN mb9 Corrections: (The following items were deleted from the chart) 09/27 20:23 20:00 CBC+H.LAB.BRZ ordered. EDMS EDMS 20:23 20:00 PROTIME (+INR)+COAG.LAB.BRZ ordered. EDNH EDMS 20:44 20:12 62-year-old male with a history of hypertension, COPD, NE with stent and pacer sp3 placement, prior bowel resection presents with chief complaint seizure activity after which his spouse activated EMS who transported him to the hospital. They were dispatched to find a patient actively seizing to which they administered IV midazolam and transported him to the ED. He has been postictal for them on their entire ride here. Currently he is also postictal and cannot answer any questions but is maintaining his airway and breathing on his own. Review of systems and remainder of H\\T\\P severely limited secondary to these aspects. There are no visible signs of trauma, acute bleeding, or any other history reported from EMS.. sp3 20:48 20:46 Intubation: Ventilated with 100% NRB prior to procedure. Intubated orally using # sp3 3 Tal blade with 7.5 mm ETT. Successful on second attempt. Ventilated with Ambu bag. Cricoid pressure applied during procedure. Tube secured Placement verified by Patient had over 2 L of gastric contents that self evacuated via emesis during her first intubation attempt. Was suctioned and once relatively clear, second attempt was successful with direct visualization of ET tube passing through the cords. Orogastric tube was then placed to further evacuate stomach contents nearly 3 L were evacuated. Gastroccult sent on stomach contents.. sp3 09/28 01:53 00:20 Dr. Hodges sp3 jb4
[2022-09-28] MEDS ORDERED: ACETAMINOPHEN 650MG/RECT SUPP PR ONE (01:31)
[2022-09-28 02:17] VITALS: TEMP 102.4
[2022-09-28 02:19] VITALS: BP 91/60; O2SAT 93
--- NOTE | 2022-09-28 15:02 | RAD REPORT ---
EXAM DESCRIPTION: RAD - Chest Single View - 09/27/2022 11:54 pm CLINICAL HISTORY: The patient is 61 years old and is Male; AMS TECHNIQUE: Frontal view of the chest. COMPARISON: No relevant prior studies available. FINDINGS: LUNGS: Unremarkable. No consolidation. PLEURAL SPACE: Unremarkable. No pneumothorax. HEART: Unremarkable. No cardiomegaly. MEDIASTINUM: Unremarkable. BONES/JOINTS: Unremarkable. TUBES, LINES AND DEVICES: A left-sided pacemaker is present. UPPER ABDOMEN: Unremarkable as visualized. IMPRESSION: No acute cardiopulmonary process. Electronically signed by: Arely Vital MD 01/16/2022 4:24 AM CDT Due to temporary technical issues with the PACS/Fluency reporting system, reports are being signed by the in house radiologists without review as a courtesy to insure prompt reporting. The interpreting radiologist is fully responsible for the content of the report.
--- NOTE | 2022-09-28 15:22 | EKG ---
Test Date: 2022-09-27 Test Time: 19:57:20 Licensing Engineer: MB MEASUREMENT RESULTS: Intervals: Rate: 90 NM: 206 QRSD: 98 QT: 364 QTc: 445 [place]: P: 61 NM: 206 QRS: 5 T: -88 INTERPRETIVE STATEMENTS: Atrial-paced rhythm Inferior infarct, age undetermined Possible Anterolateral infarct, age undetermined Abnormal ECG Compared to ECG 07/17/2022 11:58:18 Sinus rhythm no longer present Myocardial infarct finding still present Electronically Signed On 09-28-22 15:20:36 REPORTS ANALYST by Alistair Quiroga
[2022-09-29 11:13] LABS: Urine Blood Negative (Negative); Urine Glucose Negative (Negative); Urine Protein 1+ (Negative); Urine pH 6.5 (5.0-7.0)
== END 2022-09-28 01:53 | disposition short-term general hospital (02) ==
LOC: ER 19:53
DX: A41.9 Sepsis, unspecified organism (principal); R65.21 Severe sepsis with septic shock; G40.901 Epilepsy, unspecified, not intractable, with status epilepticus; K92.2 Gastrointestinal hemorrhage, unspecified; I10 Essential (primary) hypertension; J44.9 Chronic obstructive pulmonary disease, unspecified; Z20.822 Contact with and (suspected) exposure to COVID-19; Z95.0 Presence of cardiac pacemaker; Z88.6 Allergy status to analgesic agent; Z88.1 Allergy status to other antibiotic agents; Z88.3 Allergy status to other anti-infective agents; Z88.5 Allergy status to narcotic agent; Z88.0 Allergy status to penicillin; Z88.8 Allergy status to other drugs, medicaments and biological substances
CPT/HCPCS: 93005; 87040 ×2; 85025; 80048; 36415; 83735; 85610; 82947; 80076; 83986; 82271; 83605 ×2; 81003; 84484; 80307; 70450; 74176; 71045 ×2; 94002; 82805; 31500; 51702; 99291; 99292; 87811; J0330; J2354; J2704; C9113; J2250; J3010; J3370; J2185; J1953; J7050 ×2; J7040; J7030 ×2